=== PATIENT | male | born 1960 | race Caucasian/White ===

== ENCOUNTER 2016-06-16 17:23 | Inpatient (IN) | payer OTHER ==
[~2016-06-16] VITALS: Ht 167.6 cm; Wt 95.0 kg
[~2016-06-16 17:23] MED LIST: ACET500C3 PO; ALPR0.5T6 PO; AMLO-145 PO; ASPI-664 PO; ATOR40TA68 PO; BLOO-1030 MC; CARV12.579 PO; CLOP75TA27 PO; FURO40TA4 PO; GLIM1TAB2 PO; INSU100C SC; IPRA4AER IH; ISOS60TA PO; LOSA50TA2 PO; MECL-77 PO; METF-388 PO; NIT4 SL; NOVO7030 SC; PANT40TA4 PO; PHEN300C2 PO; RANO500T2 PO; SERT25TA83 PO; ZOLP10TA5 PO
[2016-06-16] MEDS ORDERED: ONDANSETRON 4 MG INJ ONE (17:31)
[2016-06-16] MEDS ORDERED: morphine 4 MG/ML VIAL ONE (17:31)
[2016-06-16] MEDS ORDERED: morphine 4 MG/ML VIAL IV STA ×4 (17:33→21:08)
--- NOTE | 2016-06-16 17:37 | ERA ---
ER Documentation Chief Complaint Date/Time DATE: 06/16/16 TIME: 17:36 Chief Complaint Chest pain HPI 55-year-old man with history of multiple medical problems including CAD s/p CABG , ischemic heart disease, hyperlipidemia, hypertension, diabetes presents with intermittent left-sided chest pain 30 minutes. Patient was brought in by EMS from home after he had the acute onset of this sharp deep left-sided chest pain that was nonradiating and associated with shortness of breath, nausea, and diaphoresis. Patient reports the pain as 10- 10 and it is non-tearing, nonpleuritic, non-positional. This occurred while at rest. Patient took 7 nitros without any relief of the pain. He received 1 more round of nitro by EMS and was given aspirin 324 mg in ambulance. Patient denies having such pain in the past and cannot tell this feels like his heart attack pain. Per review of notes from April 2015 patient had a similar syndrome and workup done at that time that included Lexiscan. Patient still smokes but denies any drug use. ROS All systems reviewed and are negative except as per history of present illness. Medications Home Meds Active Scripts Ranolazine* (Ranexa*) 500 Mg Tabsr, 1000 MG PO Q12 for 30 Days, TAB Prov:CARLOS MARTINEZ MD 05/02/15 Phenytoin* Sodium Extended (Dilantin*) 300 Mg Capsule, 300 MG PO HS, #30 CAP Prov:ALIZA CUENCA MD 12/22/14 Ranolazine* (Ranexa*) 500 Mg Tabsr, 500 MG PO Q12, #60 TAB Prov:ALIZA CUENCA MD 12/22/14 Pantoprazole (Protonix) 40 Mg Tabec, 40 MG PO DAILY@06, #30 TAB Prov:ALIZA CUENCA MD 12/22/14 Nitroglycerin* (Nitrostat*) 25 Tab Subl, 1 TAB SL Q5M Y for CHEST PAIN, #90 TAB Prov:ALIZA CUENCA MD 12/22/14 Losartan Potassium* (Cozaar*) 50 Mg Tab, 50 MG PO Q12, #60 TAB Prov:ALIZA CUENCA MD 12/22/14 Albuterol/Ipratropium* (Combivent Respimat*) 20-100 Mcg/Inh - 4 Gm Aer.w.adap, 2 PUFF IH QID, #1 INH Prov:ALIZA CUENCA MD 05/31/14 Reported Medications Cyanocobalamin* (Vitamin B-12*) 1,000 Mcg Tablet.sa, 1000 MCG PO DAILY, TAB 06/16/16 Hydromorphone Hcl* (Hydromorphone Hcl*) 2 Mg Tablet, 2 MG PO Q4H Y for PAIN, TAB 06/16/16 Docusate Sodium* (Docusate Sodium*) 100 Mg Capsule, 100 MG PO TID, #60 CAP 06/16/16 Baclofen* (Baclofen*) 10 Mg Tablet, 10 MG PO BID, TAB 06/16/16 Hydrocodone/Acetaminophen ([place] 10-325 Tablet) 1 Each Tablet, 1 TAB PO Q6 Y for PAIN LEVEL 6-10, TAB 06/16/16 Morphine Sulfate* (Ms Contin*) 15 Mg Tablet.sa, 15 MG PO Q6, TAB.SA 06/16/16 Gabapentin* (Gabapentin*) 300 Mg Capsule, 300 MG PO BID, #60 CAP 06/16/16 Isosorbide Mononitrate* (Isosorbide Mononitrate*) 60 Mg Tab.er.24h, 60 MG PO DAILY, TAB 04/27/15 Atorvastatin* (Atorvastatin*) 40 Mg Tablet, 40 MG PO HS, TAB 12/18/14 Furosemide* (Furosemide*) 40 Mg Tablet, 40 MG PO DAILY, TAB 05/18/14 Alprazolam* (Alprazolam*) 0.5 Mg Tablet, 0.5 MG PO Q8 for ANXIETY, TAB 05/18/14 Clopidogrel Bisulfate (Clopidogrel) 75 Mg Tablet, 75 MG PO DAILY, TAB 04/26/14 Acetaminophen (Mapap) 500 Mg Capsule, 500 MG PO Q6 Y for PAIN, CAP 04/26/14 Meclizine Hcl* (Meclizine Hcl*) 25 Mg Tablet, 25 MG PO TID Y for VERTIGO, TAB 04/26/14 Carvedilol* (Carvedilol*) 12.5 Mg Tablet, 12.5 MG PO BID, TAB 04/26/14 Metformin Hcl* (Metformin Hcl*) 1,000 Mg Tablet, 1000 MG PO BID, TAB 04/26/14 Aspirin* (Aspirin* (EC)) 81 Mg Tablet.dr, 81 MG PO DAILY, TAB 04/26/14 Glimepiride* (Glimepiride*) 1 Mg Tablet, 1 MG PO DAILY, TAB 04/26/14 Zolpidem Tartrate* (Zolpidem Tartrate*) 10 Mg Tablet, 10 MG PO HS Y for INSOMNIA , TAB 04/26/14 Amlodipine Besylate* (Amlodipine Besylate*) 5 Mg Tablet, 5 MG PO DAILY, TAB 04/26/14 Blood Sugar Diagnostic (FREESTYLE LITE TEST STRIPS) 1 Each Strip, 1 EACH MC QID , STRIP 04/26/14 Insulin Lispro (Humalog) 100 U/Ml Cartridge, 0 SC SLIDING SCALE AC, EA 04/26/14 Insulin Isophan/Regular (Humulin 70/30) 100 Units/Ml Susp, 15 UNIT SC PM, EA 04/26/14 Insulin Isophan/Regular (Humulin 70/30) 100 Units/Ml Susp, 15 UNIT SC AM, EA 04/26/14 Discontinued Reported Medications Sertraline Hcl* (Sertraline Hcl*) 25 Mg Tablet, 25 MG PO DAILY, TAB 04/26/14 Allergies Allergies: Coded Allergies: sumatriptan (Verified Allergy, Unknown, 12/21/14) sumatriptan succinate (Verified Allergy, Unknown, 12/21/14) venlafaxine HCl (Verified Allergy, Unknown, 12/21/14) PMhx/Soc History of Surgery: No Anesthesia Reaction: No Hx Neurological Disorder: No Hx Respiratory Disorders: No Hx Cardiac Disorders: Yes Hx Psychiatric Problems: No Hx Miscellaneous Medical Probl: Yes (Anxiety/Depression) Hx Alcohol Use: No Hx Substance Use: No Hx Tobacco Use: Yes Physical Exam Vitals Vital Signs Date Time Temp Pulse Resp B/P Pulse Ox O2 Delivery O2 Flow Rate FiO2 06/16/16 19:00 60 19 116/71 100 Room Air 06/16/16 17:30 Nasal Cannula 2 06/16/16 17:30 98.1 60 16 127/97 100 Physical Exam General: alert, unkempt and in severe distress due to pain, diaphoretic, AOx4. normal pulse oximetry. Head: Atraumatic, normocephalic Eyes: pupils equal and reactive, extraocular eye movements intact, sclera anicteric. Ears: bilateral TM's and external ear canals normal. Nose: normal and patent, no erythema, discharge or polyps. Oropharynx: moist mucous membranes, pharynx normal without lesions. Neck: supple, no significant adenopathy. Heart: normal rate, regular rhythm, normal S1, S2, no murmurs, rubs, clicks or gallops. Peripheral pulses: normal, CP non-reproducible, +midline sternotomy scar c/d/i Lungs: clear to auscultation, no wheezes, rales or rhonchi, symmetric air entry and normal work of breathing. Abdomen: soft, nontender, nondistended, no masses or organomegaly Extremities: no joint tenderness, deformity or swelling. Skin: normal coloration and turgor, no rashes, no suspicious skin lesions noted. Neurologic: Alert, moving all extremities symmetrically x 4, sensation grossly intact, no gross deficits Result Diagram: 06/17/16 0535 06/17/16 0535 Results 24 hrs Laboratory Tests Test 06/16/16 17:50 Activated Partial Thromboplast Time 26.8Sec Anion Gap 18 Basophils # 0.010^3/ul Basophils % 0.5% Blood Morphology Comment Blood Urea Nitrogen 22mg/dl Calcium Level 9.3mg/dl Carbon Dioxide Level 24mmol/L Chloride Level 107mmol/L Creatinine 0.79mg/dl Eosinophils # 0.210^3/ul Eosinophils % 2.4% Glucose Level 227mg/dl Hematocrit 38.6% Hemoglobin 13.1g/dl INR International Normalized Ratio 1.00 Lymphocytes # 1.810^3/ul Lymphocytes % 27.3% Mean Corpuscular Hemoglobin 30.5pg Mean Corpuscular Hemoglobin Concent 33.8g/dl Mean Corpuscular Volume 90.2fl Mean Platelet Volume 9.0fl Monocytes # 0.510^3/ul Monocytes % 7.7% Neutrophils # 4.210^3/ul Neutrophils % 62.1% Nucleated Red Blood Cells # 0.010^3/ul Nucleated Red Blood Cells % 0.0/100WBC Platelet Count 35340^3/UL Potassium Level 3.8mmol/L Prothrombin Time 13.2Sec Prothrombin Time Ratio 1.0 Red Blood Count 4.2810^6/ul Red Cell Distribution Width 14.6% Sodium Level 145mmol/L Troponin I 0.012ng/ml White Blood Count 6.710^3/ul Current Medications Medications (Trade) Dose Ordered Sig/Cecil Route PRN Reason Start Time Stop Time Status Last Admin Dose Admin Morphine Sulfate (morphine) 4 mg ONCE STAT IV 06/16/16 17:33 06/16/16 17:35 DC 06/16/16 17:38 Ondansetron HCl (Zofran Inj) 4 mg ONCE STAT IV 06/16/16 17:38 06/16/16 17:39 DC 06/16/16 17:44 Morphine Sulfate (morphine) 4 mg ONCE STAT IV 06/16/16 17:57 06/16/16 17:58 DC 06/16/16 18:16 Procedures/MDM EKG, MONITORS, & DIAGNOSTIC IMAGING: EKG normal sinus rhythm at [address] flattening in V1 and V2, leads I and aVL, no ST elevation, ST depression, or T-wave inversions. Left axis deviation, normal intervals except for slightly prolonged QTC. Nondiagnostic. CXR: IMPRESSION: Mild cardiomegaly. Mild pulmonary venous hypertension. LAB INTERPRETATION: Labs unremarkable MED[employer] DECISION MAKIN-year-old man with history of multiple medical problems including CAD s/p CABG , ischemic heart disease, hyperlipidemia, hypertension, diabetes presents with intermittent left-sided chest pain 30 minutes of unclear etiology but given his past medical history is high risk for acute coronary syndrome. Patient's EKG showing no signs of a STEMI, chest x-ray showing mild venous congestion. He is now chest pain-free and was given aspirin. Afebrile mildly hypertensive otherwise unremarkable vital signs. Low suspicion for aortic dissection given normal mediastinum and normal symmetric pulses throughout. Doubt PE as he is low risk by [place] score and is not tachycardic, tachypneic, or hypoxic. Patient is high risk by heart score and will benefit from admission for ACS rule out as well as further provocative testing. Departure Diagnosis: Primary Impression: Chest pain Qualified Code: R07.9 - Chest pain, unspecified type Additional Impression: ACS (acute coronary syndrome) Condition: JAYCE Montague MD Jun 16, 2016 17:36 CONSULTATION: JAYCE PRESCOTT MD Jun 16, 2016 17:36
[2016-06-16] MEDS ORDERED: ONDANSETRON 4 MG INJ IV STA (17:38)
--- NOTE | 2016-06-16 17:53 | RADRPT ---
PROCEDURE: XR Chest. CLINICAL INDICATION: Chest pain TECHNIQUE: Chest AP portable. COMPARISON: 04/28/2015 FINDINGS: Sternotomy and CABG. Left-sided dual lead AICD device. The mediastinal structures are unremarkable. There is calcification of the thoracic aorta (consiste nt with atherosclerosis). There is mild cardiomegaly. There is mild pulmonary venous hypertension. No consolidation is identified. The pleural spaces are unremarkable. The osseous structures are unremarkable. IMPRESSION: Mild cardiomegaly. Mild pulmonary venous hypertension. RPTAT: HGDB .Speedy Drummond MD, MD Date Time Electronically viewed and signed by .Speedy Drummond MD, on 06/16/2016 17:53 .B/
[2016-06-16] MEDS ORDERED: GABA300C16 PO (18:02)
[2016-06-16] MEDS ORDERED: MORP15TA92 PO (18:02)
[2016-06-16] MEDS ORDERED: DOCU-159 PO (18:04)
[2016-06-16] MEDS ORDERED: HYDR-902 PO (18:04)
[2016-06-16] MEDS ORDERED: BACL10TA PO (18:04)
[2016-06-16] MEDS ORDERED: CYAN100080 PO (18:05)
[2016-06-16] MEDS ORDERED: HYDR2TAB3 PO (18:05)
[2016-06-16 18:19] LABS: BASOPHILS % 0.5 % (0.0-2.0); EOSINOPHILS # 0.2 10^3/ul (0.0-0.5); EOSINOPHILS % 2.4 % (0.0-7.0); HEMATOCRIT 38.6 % (42.0-52.0); HEMOGLOBIN 13.1 g/dl (14.0-18.0); LYMPHOCYTES # 1.8 10^3/ul (0.8-2.9); LYMPHOCYTES % 27.3 % (15.0-51.0); MEAN CORPUSCULAR HEMOGLOBIN 30.5 pg (29.0-33.0); MEAN CORPUSCULAR HGB CONC 33.8 g/dl (32.0-37.0); MEAN CORPUSCULAR VOLUME 90.2 fl (82.0-101.0); MONOCYTE # 0.5 10^3/ul (0.3-0.9); MONOCYTES % 7.7 % (0.0-11.0); NEUTROPHIL # 4.2 10^3/ul (1.6-7.5); NEUTROPHILS % 62.1 % (39.0-77.0); PLATELET COUNT 168 10^3/UL (140-440); RED BLOOD COUNT 4.28 10^6/ul (4.70-6.10); RED CELL DISTRIBUTION WIDTH 14.6 % (11.5-14.5); UNCORRECTED WBC 6.7 10^3/ul (4.8-10.8); WHITE BLOOD COUNT 6.7 10^3/ul (4.8-10.8)
[2016-06-16 18:22] LABS: CONDITION 1; LH ANALYZER COMMENTS 1
[2016-06-16 18:25] LABS: POTASSIUM 3.8 mmol/L (3.5-5.1)
[2016-06-16 18:26] LABS: PROTIME 13.2 Sec (12.2-14.2)
[2016-06-16 18:27] LABS: CREATININE 0.79 mg/dl (0.61-1.24); PARTIAL THROMBOPLASTIN TIME 26.8 Sec (25.0-35.0)
[2016-06-16 18:28] LABS: CALCIUM 9.3 mg/dl (8.4-10.2)
[2016-06-16 18:40] LABS: TROPONIN-I 0.012 ng/ml (0.00-0.12)
[2016-06-16 21:24] VITALS: PULSE 60
[2016-06-16] MEDS ORDERED: ACETAMINOPHEN 500 MG TAB PO PRN (22:30)
[2016-06-16] MEDS ORDERED: NITROGLYCERIN (SL) 0.4 MG TAB SL PRN (22:30)
[2016-06-16] MEDS ORDERED: MECLIZINE 25 MG TAB PO PRN (22:30)
[2016-06-16] MEDS ORDERED: HYDROmorphONE 2 MG TAB PO PRN (22:30)
[2016-06-16] MEDS ORDERED: GLUCAGON 1 MG INJ IM PRN (23:30)
[2016-06-16] MEDS ORDERED: GLUCOSE GEL 15 GRAM TUBE PO PRN ×2 (23:30)
[2016-06-16] MEDS ORDERED: DEXTROSE 50% 50 ML SYRINGE IV PRN ×2 (23:30)
[2016-06-16] MEDS ORDERED: GLUCOSE GEL 15 GRAM TUBE BUCCAL PRN (23:30)
[2016-06-16] MEDS: morphine (ER) 15 MG TAB PO SCH (23:38)
[2016-06-16] MEDS: ZOLPIDEM 5 MG TAB PO PRN (23:43)
[2016-06-16 23:57] VITALS: Ht 167.6 cm; Wt 95.0 kg
[2016-06-17] VITALS (10 sets, daily range): BP systolic 88–132; BP diastolic 50–64; PULSE 60; RESP 17–20
[2016-06-17] MEDS: ACCUCHECK XX SCH (02:00)
[2016-06-17] MEDS: PANTOPRAZOLE (EC) 40 MG TAB PO SCH (05:46)
[2016-06-17] MEDS: FUROSEMIDE 40 MG TAB PO SCH (05:46)
[2016-06-17] MEDS: morphine (ER) 15 MG TAB PO SCH ×4 (05:49→23:38)
[2016-06-17] MEDS: ALPRAZOLAM 0.25 MG TAB PO SCH ×3 (06:00→21:44)
[2016-06-17] MEDS ORDERED: ALPRAZOLAM 0.5 MG TAB PO SCH (06:00)
[2016-06-17 06:13] LABS: BASOPHILS % 0.1 % (0.0-2.0); EOSINOPHILS # 0.3 10^3/ul (0.0-0.5); EOSINOPHILS % 4.1 % (0.0-7.0); HEMATOCRIT 37.3 % (42.0-52.0); HEMOGLOBIN 12.6 g/dl (14.0-18.0); LYMPHOCYTES # 2.5 10^3/ul (0.8-2.9); MEAN CORPUSCULAR HEMOGLOBIN 30.8 pg (29.0-33.0); MEAN CORPUSCULAR HGB CONC 33.9 g/dl (32.0-37.0); MEAN CORPUSCULAR VOLUME 90.8 fl (82.0-101.0); MEAN PLATELET VOLUME 8.8 fl (7.4-10.4); MONOCYTE # 0.7 10^3/ul (0.3-0.9); MONOCYTES % 9.7 % (0.0-11.0); NEUTROPHIL # 3.7 10^3/ul (1.6-7.5); NEUTROPHILS % 51.1 % (39.0-77.0); PLATELET COUNT 143 10^3/UL (140-440); RED BLOOD COUNT 4.11 10^6/ul (4.70-6.10); RED CELL DISTRIBUTION WIDTH 14.4 % (11.5-14.5); UNCORRECTED WBC 7.2 10^3/ul (4.8-10.8); WHITE BLOOD COUNT 7.2 10^3/ul (4.8-10.8)
[2016-06-17 06:21] LABS: CONDITION 1
[2016-06-17 06:28] LABS: ALBUMIN 3.7 g/dl (3.3-4.9)
[2016-06-17 06:31] LABS: ALBUMIN/GLOBULIN RATIO 1.23; BILIRUBIN,INDIRECT 0.3 mg/dl (0-1.1); BILIRUBIN,TOTAL 0.3 mg/dl (0.2-1.3); CREATININE 0.83 mg/dl (0.61-1.24); TOTAL PROTEIN 6.7 g/dl (6.1-8.1)
[2016-06-17 06:32] LABS: CALCIUM 8.9 mg/dl (8.4-10.2); CHOL/HDL RATIO 6.3 RATIO
[2016-06-17] MEDS: INSULIN ASPART [NOVOLOG] 3 ML PEN SC SCH ×4 (08:00→21:39)
[2016-06-17] MEDS: CYANOCOBALAMIN 500 MCG TAB PO SCH (08:47)
[2016-06-17] MEDS: RANOLAZINE (SR) 500 MG TAB PO SCH ×2 (08:47→21:42)
[2016-06-17] MEDS: metFORMIN 500 MG TAB PO SCH ×2 (08:48→17:37)
[2016-06-17] MEDS: GABAPENTIN 300 MG CAP PO SCH ×2 (08:48→21:43)
[2016-06-17] MEDS: CLOPIDOGREL 75 MG TAB PO SCH (08:48)
[2016-06-17] MEDS: DOCUSATE SODIUM 100 MG CAP PO SCH ×3 (08:49→21:43)
[2016-06-17] MEDS: ISOSORBIDE MONONITRATE(SR)60 MG TAB PO SCH (08:49)
[2016-06-17] MEDS: ASPIRIN (EC) 81 MG TAB PO SCH (08:49)
[2016-06-17] MEDS: LOSARTAN 50 MG TAB PO SCH ×2 (08:50→21:44)
[2016-06-17] MEDS: ENOXAPARIN 40 MG/0.4 ML SYG SC SCH (08:52)
[2016-06-17] MEDS: HUMULIN 70/30 3ML VIAL SC SCH (08:52)
[2016-06-17] MEDS ORDERED: RANOLAZINE (SR) 500 MG TAB PO SCH (09:00)
[2016-06-17] MEDS ORDERED: HUMULIN 70/30 3ML VIAL SC SCH (09:00)
[2016-06-17] MEDS ORDERED: AMLODIPINE 5 MG TAB PO SCH (09:00)
[2016-06-17] MEDS: IBUPROFEN 800 MG TAB PO SCH ×2 (11:56→21:00)
[2016-06-17] MEDS: morphine 2 MG INJ IV PRN ×3 (13:27→21:41)
[2016-06-17] MEDS ORDERED: ONDANSETRON 4 MG INJ IV PRN (15:00)
--- NOTE | 2016-06-17 19:21 | QN ---
Documentation Comment [id number] CARLOS MARTINEZ MD Jun 17, 2016 19:21
[2016-06-17] MEDS ORDERED: PHENYTOIN 100 MG CAP PO SCH (21:00)
[2016-06-17] MEDS ORDERED: ATORVASTATIN 40 MG TAB PO SCH (21:00)
--- NOTE | 2016-06-17 22:56 | CONS ---
DATE OF ADMISSION: 06/16/2016 DATE OF CONSULTATION: 06/17/2016 REASON FOR CONSULTATION: Chest pain. REQUESTING PHYSICIAN: Shashank Martinez MD HISTORY OF PRESENT ILLNESS: Mr. Louis is a 56-year-old male with a history of coronary artery di sease, status post prior PTCA and stent placement to the obtuse marginal in November 2012, coronary sissy ry bypass graft surgery with a patent KNOTT to LAD and other bypass grafts are found to be occluded, cardiomyopathy with severely depressed left ventricular ejection fraction, last known to be approxim ately 25% by echo 04/29/2015, dyslipidemia, hypertension who presents with complaints of substernal chest pain, left side of his chest, occurring both at rest and with exertion, described as a stabbin g sensation. Upon arrival in the emergency department, temperature 98.1, blood pressure 127/97, pul se 60, respirations 16, saturating 100%. The patient's labs, white count 6.7, hemoglobin 13.1, plat elet count 168. Sodium 145, potassium 3.8, creatinine 0.79, BUN 22. Troponin negative. INR of 1.0 . The patient underwent a chest x-ray revealing mild cardiomegaly, mild pulmonary venous hypertensi on. The patient's electrocardiogram revealed sinus rhythm, rate of 79 with inferior and anterolater al Q's. The patient has been admitted to the floor and, since admit to the floor, has had a second troponin return negative for 2 negative troponins. The patient has been placed on aspirin, Plavix, carvedilol, Imdur, Losartan, Ranexa. The patient continues to have chest pain at this time. PAST MEDICAL HISTORY: As above in HPI. MEDICATIONS CURRENTLY IN HOSPITAL: 1. Lipitor 40 mg at bedtime. 2. Dilantin 300 mg at bedtime. 3. Zofran p.r.n. 4. Ibuprofen 800 mg p.o. b.i.d. 5. Morphine. 6. Norvasc 5 mg daily. 7. Aspirin 81 mg daily. 8. Carvedilol 12.5 mg p.o. b.i.d. 9. Plavix 75 daily. 10. Vitamin B12 at 1000 mg daily. 11. Colace 100 mg t.i.d. 12. Neurontin 300 mg b.i.d. 13. Imdur ____ mg daily. 14. Cozaar 50 mg q.12h. 15. Ranexa 1000 mg q.12h. 16. Lovenox ____ subcutaneous daily. 17. ____ p.r.n. 18. Lasix 40 mg daily. 19. Protonix 40 mg daily. 20. Xanax 0.5 q.8h. 21. Insulin sliding scale. 22. Dilaudid p.r.n. 23. Nitroglycerin p.r.n. 24. Ambien p.r.n. ALLERGIES: SUMATRIPTAN, VENLAFAXINE. SOCIAL HISTORY: No tobacco, ETOH, or illicit drug use. FAMILY HISTORY: Negative for sudden cardiac or early CAD. REVIEW OF SYSTEMS: As above in HPI. CONSTITUTIONAL: No fevers, chills. PULMONARY: No current shortness of breath. CARDIOVASCULAR: Positive chest pain. GASTROINTESTINAL: No vomiting. GENITOURINARY: No hematuria. MUSCULOSKELETAL: Degenerative joint disease. PSYCHIATRIC: The patient denies depression. NEUROLOGIC: No documented history of CVA. ENDOCRINE: Positive history of diabetes mellitus. PSYCHIATRIC: Positive psychiatric history. PHYSICAL EXAMINATION: VITAL SIGNS: Temperature most recently 98.5, blood pressure low at 88/50, pulse 60s to 70s, saturat ing 96%. GENERAL: The patient is alert, awake, in no acute distress, complaining of intermittent chest pain. NECK: JVP approximately 8 to 9 cm water. CHEST: Fair movement throughout with mildly decreased breath sounds at bases bilaterally. HEART: Regular rate and rhythm. Normal S1, S2. A I/ systolic murmur, nondisplaced PMI. ABDOMEN: Positive bowel sounds, soft. EXTREMITIES: No pitting edema, 1+ pulses bilaterally, posterior tibial. LABORATORIES: As above in HPI with most recently from today, sodium 146, potassium 4.0, creatinine 0.8, BUN of 22. AST 15, ALT 19. LDL of 135, HDL 32, triglycerides 177. IMAGING STUDIES: As above in HPI. No further imaging studies for my review at this time. ECG: As above in HPI. No further electrocardiograms for my review at this time. IMPRESSION: 1. Chest pain, assess for acute coronary syndrome. 2. Abnormal electrocardiogram with inferior and anterolateral Q's, assess for acute coronary syndro me. 3. Cardiomyopathy with severely depressed left ventricular ejection fraction. Last known approxima tely 25% by echo, 2014. 4. History of percutaneous transluminal coronary angioplasty and stent placement, November 2014, to obt use marginal. 5. History of coronary artery bypass grafting with the patient having a patent left internal mammar y artery to left anterior descending by most recent angiography, 2014, but other vessels occluded. 6. Anxiety. 7. Hypertension with currently borderline hypotension. 8. Dyslipidemia. 9. Diabetes mellitus. RECOMMENDATIONS: 1. At this time, would maintain patient on telemetry monitoring to follow rhythm and rate control c losely. 2. Would continue the patient's current antianginal medications with carvedilol, Imdur, Ranexa, and Norvasc. Will decrease the patient's dose of Norvasc to offset drop in blood pressure. 3. Will complete the patient's rule out for myocardial infarction to ensure the patient's chest jyoti n is not due to any acute coronary syndrome, such as an acute myocardial infarction. 4. Additionally, continue the patient's Losartan afterload reduction in the setting of severe cardi omyopathy and daily Lasix, following volume status closely. 5. If the patient does rule out for myocardial infarction, at that time, I believe the patient will benefit from further inpatient risk stratification with a stress test to assess for any significant ongoing ischemia, as it has been over a year since the patient's most recent assessment. Thank you for allowing me to take part in the care of this patient. I will continue to follow very closely with you with further recommendations to be made as the patient progresses through his [facility] clinical course. Dictated By: NICHOL JACKSON/MOISES Conf#: [id number] DID#: [id number] CC: SHASHANK MARTINEZ MD;*EndCC*
[2016-06-17] MEDS: ZOLPIDEM 5 MG TAB PO PRN (23:37)
[2016-06-18] VITALS (10 sets, daily range): BP systolic 105–141; BP diastolic 56–73; PULSE 60–75; RESP 16–18
[2016-06-18] MEDS: ACCUCHECK XX SCH (01:59)
[2016-06-18] MEDS: morphine 2 MG INJ IV PRN ×4 (02:01→15:26)
[2016-06-18] MEDS: morphine (ER) 15 MG TAB PO SCH ×3 (06:00→18:00)
[2016-06-18] MEDS: ALPRAZOLAM 0.25 MG TAB PO SCH ×2 (06:00→13:10)
[2016-06-18] MEDS: PANTOPRAZOLE (EC) 40 MG TAB PO SCH (06:26)
[2016-06-18] MEDS: FUROSEMIDE 40 MG TAB PO SCH (06:26)
--- NOTE | 2016-06-18 06:38 | HP ---
DATE OF ADMISSION: 06/16/2016 HISTORY OF PRESENT ILLNESS: Mr. Daniel Louis is a 56-year-old male who has a history of CAD, AI CD device placement. The patient had seen Dr. Olsen in the past, presented with chest pain, but t he patient's pain seems to be coming from the chest wall tenderness as well as the patient previousl y was discharged home with the diagnosis of ischemic heart disease, CHF, ejection fraction 30%, hist ory of Lexiscan shows nonreversible disease, dyslipidemia, hypertension, diabetes mellitus, CAD, his tory of coronary artery bypass graft, and the coronary angiogram and intervention in the past, anxie ty, chronic pain. ALLERGIES: 1. SUMATRIPTAN. 2. EFFEXOR. SOCIAL HISTORY: He denies at this point. MEDICATION HISTORY: The patient is on: 1. Combivent. 2. Xanax. 3. Amlodipine. 4. Aspirin. 5. Lipitor. 6. Baclofen. 7. Coreg. 8. Plavix. 9. B12. 10. Docusate sodium. 11. Lasix. 12. Gabapentin 13. Amaryl. 14. Hydrocodone. 15. Insulin. 16. Losartan. 17. Meclizine. 18. Metformin. 19. Morphine. 20. Nitroglycerin. 21. Protonix. 22. Dilantin 23. Ranexa. 24. Ambien. REVIEW OF SYSTEMS: HEENT: Unremarkable. RESPIRATORY: Unremarkable. CARDIOVASCULAR: Chest wall pain and chest pain. ABDOMEN: Unremarkable. EXTREMITIES: Unremarkable. CENTRAL NERVOUS SYSTEM: Unremarkable. PHYSICAL EXAMINATION: GENERAL: The patient is anxious, awake, alert, not in any acute respiratory distress. VITAL SIGNS: Pulse of 60, blood pressure 110/50. HEAD: Atraumatic, normocephalic. Pupils equal, reactive to light. NECK: Supple. No JVD. LUNGS: Clear. CARDIOVASCULAR: S1, S2 normal. Systolic murmur noted. CABG scar noted. AICD device in the left c hest noted. The patient has some tenderness on the left side chest wall close to the AICD device. ABDOMEN: Soft, nontender. Bowel sounds present. No palpable mass. EXTREMITIES: No cyanosis, clubbing, or edema. CENTRAL NERVOUS SYSTEM: The patient is awake, alert, no focal deficit. LABORATORY DATA: Hematocrit 37.3. Sodium 146, potassium 4. Triglyceride 177, cholesterol 202. IMPRESSION: 1. The patient has chest pain. 2. Rule out ischemic heart disease. 3. Rule out chest wall pain. 4. Hypertension. 5. Diabetes mellitus. 6. Coronary artery disease. 7. Coronary artery bypass graft. 8. Dyslipidemia. 9. History of Lexiscan done. 10. Anemia. 11. Hyponatremia. 12. Atherosclerotic heart disease. 13. History of coronary artery bypass graft. 14. History of anxiety. 15. History of dyslipidemia. PLAN: To continue current treatment. Dr. Olsen has been called personally to see this patient in consultation. The patient will be on pain medications, and other recommendations per Dr. Olsen. Dictated By: CARLOS WATKINS/MOISES Conf#: [id number] DID#: [id number]
[2016-06-18 07:03] LABS: POTASSIUM 4.3 mmol/L (3.5-5.1)
[2016-06-18 07:06] LABS: CREATININE 0.84 mg/dl (0.61-1.24)
[2016-06-18 07:07] LABS: CALCIUM 9.3 mg/dl (8.4-10.2)
[2016-06-18 07:20] LABS: CHOL/HDL RATIO 7.1 RATIO
[2016-06-18] MEDS: metFORMIN 500 MG TAB PO SCH ×2 (08:00→18:05)
[2016-06-18] MEDS: ASPIRIN (EC) 81 MG TAB PO SCH (08:54)
[2016-06-18] MEDS: IBUPROFEN 800 MG TAB PO SCH (08:54)
[2016-06-18] MEDS: DOCUSATE SODIUM 100 MG CAP PO SCH ×2 (08:54→13:10)
[2016-06-18] MEDS: CLOPIDOGREL 75 MG TAB PO SCH (08:54)
[2016-06-18] MEDS: ISOSORBIDE MONONITRATE(SR)60 MG TAB PO SCH (08:55)
[2016-06-18] MEDS: LOSARTAN 50 MG TAB PO SCH (08:55)
[2016-06-18] MEDS: CYANOCOBALAMIN 500 MCG TAB PO SCH (08:55)
[2016-06-18] MEDS: GABAPENTIN 300 MG CAP PO SCH (08:55)
[2016-06-18] MEDS: RANOLAZINE (SR) 500 MG TAB PO SCH (08:55)
[2016-06-18] MEDS: INSULIN ASPART [NOVOLOG] 3 ML PEN SC SCH ×3 (08:58→18:05)
[2016-06-18] MEDS: ENOXAPARIN 40 MG/0.4 ML SYG SC SCH (08:59)
[2016-06-18] MEDS: HUMULIN 70/30 3ML VIAL SC SCH (08:59)
[2016-06-18] MEDS ORDERED: AMLODIPINE 2.5 MG TAB PO SCH (09:00)
[2016-06-18] MEDS ORDERED: REGADENOSON 0.4 MG/5 ML SYG ONE (10:55)
--- NOTE | 2016-06-18 11:50 | RADRPT ---
Echocardiogram Report Patient Name: FANNY RICARDO Gender: Male Date: 1960 Study Date: 18-Jun-2016 Steam Fitter: Batsheva Grissom [facility] Location: 5559 Ref. Physician: NICHOL ACOSTA Quality: Good Procedures: Transthoracic echocardiogram with complete 2D, M-Mode, and doppler examination. Indications: Cardiomyopathy. Congestive Heart Failure. 2D/M Mode Doppler Measurement Value Normal Ranges Measurement Value Normal Ranges LVIDd 2D 6.4 3.5 - 5.6 cm AV Peak Raimundo 1.5 m/sec LVIDs 2D 4.9 2.1 - 4.1 cm AV Peak PG 9.0 mmHg FS 2D 22.8 % LVOT Peak Raimundo 1.0 m/sec LVPWd 2D 1.0 0.6 - 1.1 cm LVOT Peak PG 4.0 mmHg IVSd 2D 1.1 0.6 - 1.1 cm MV E Peak Raimundo 1.1 m/sec IVS/LVPW 2D 1.1 MV Decel Time 183 msec AoR Diam 2D 2.5 2.0 - 3.7 cm TR Peak Raimundo 2.9 m/sec LA/Ao 2D 2 0 - 1 TR Peak PG 34.0 mmHg EDV 2D 258.0 cm3 RVSP 42.0 mmHg ESV 2D 119.0 cm3 LA Dimen 2D 4.3 2.3 - 4.0 cm Findings Left Ventricle: Mild concentric left ventricular hypertrophy. Moderate enlargement of left ventricle cavity. Moderate global left ventricular systolic dysfunction. Ejection fraction is visually estimated at 35 %. Tissue Doppler/Mitral Doppler indices are consistent with restrictive physiology with markedly elevated left atrial pressure (Stage IIIIV diastolic dysfunction). Right Ventricle: Normal right ventricular size. Normal right ventricular systolic function. Pacemaker right heart. Left Atrium: There is mild enlargement of left atrium. Right Atrium: The right atrium is normal in size. Mitral Valve: Mitral valve leaflets appear mildly thickened. Mild mitral annular calcification. Mild mitral valve regurgitation. Aortic Valve: No significant aortic stenosis or insufficiency. Aortic cusps appear mildly calcified. Tricuspid Valve: Normal appearance of the tricuspid valve. Estimated peak PA systolic pressure 42 mmHg. There is mild tricuspid regurgitation. Pulmonic Valve: Normal pulmonic valve appearance. There is mild pulmonic regurgitation. Pericardium: Normal pericardium with no significant pericardial effusion. Aorta: Normal aortic root. IVC: Dilated IVC with respiratory collapse consistent with elevated right atrial pressure. Conclusions 1.Mild concentric left ventricular hypertrophy. Moderate enlargement of left ventricle cavity. Moderate global left ventricular systolic dysfunction. Ejection fraction is visually estimated at 35 %. Tissue Doppler/Mitral Doppler indices are consistent with restrictive physiology with markedly elevated left atrial pressure (Stage III-IV diastolic dysfunction). 2.Mitral valve leaflets appear mildly thickened. Mild mitral annular calcification. Mild mitral valve regurgitation. 3.No significant aortic stenosis or insufficiency. Aortic cusps appear mildly calcified. 4.Normal appearance of the tricuspid valve. Estimated peak PA systolic pressure 42 mmHg. There is mild tricuspid regurgitation. Electronically Signed By: Kofi Ma 18-Jun-2016 11:49:44 -0800 Patient Name: FANNY RICARDO Study Date: [id number]
--- NOTE | 2016-06-18 12:10 | CONS ---
Date/Time of Note Date/Time of Note DATE: 06/18/16 TIME: 12:09 Assessment/Plan Assessment/Plan Additional Assessment/Plan 1. Chest pain, assess for acute coronary syndrome - R/O IL - stress test today 2. Abnormal electrocardiogram with inferior and anterolateral Q's, assess for acute coronary syndrome- no CP noted now 3. Cardiomyopathy with severely depressed left ventricular ejection fraction. Last known approximately 25% by echo, 2014. ECHO EF 35% now. 4. History of percutaneous transluminal coronary angioplasty and stent placement, November 2014, to obtuse marginal - Stress test to follow 5. History of coronary artery bypass grafting with the patient having a patent left internal mammary artery to left anterior descending by most recent angiography, 2014, but other vessels occluded. 6. Anxiety. 7. Hypertension with currently borderline hypotension. 8. Dyslipidemia. 9. Diabetes mellitus- on meds, keep euglycemic Consultation Date/Type/Reason Admit Date/Time Jun 16, 2016 at 20:10 Initial Consult Date 24 HR Interval Summary Free Text/Dictation NO acute change - Stress test today ROS: No fever, no chills, no nausea, no vomiting, no diarrhea/constipation No recent weight changes No chest pain, no PND, no orthopnea No dizziness, blurred vision No thirst, no heat or cold intolerance Exam/Review of Systems Vital Signs Vitals Vital Signs Date Time Temp Pulse Resp B/P Pulse Ox O2 Delivery O2 Flow Rate FiO2 06/18/16 11:37 98.3 76 17 121/61 99 06/18/16 08:00 Nasal Cannula 2.0 Intake and Output 06/17/16 06/17/16 06/18/16 15:00 23:00 07:00 Intake Total 600 ml 940 ml Balance 600 ml 940 ml Exam General: WN/WD/NAD, AOx 3 HEENT: Unicetric/atraumatic/EOMI (follow commands) NECK: JVD elevated, no thyromegaly Lymph: no lymphadenopathy HEART: regular with no S3, II/ systolic murmur at apex LUNGS: Coarse sounds ABD: soft, NT, ND, +BS : Intact Neuro: non focal SKIN: chronic changes EXT: trace edema Results Result Diagram: 06/17/16 0535 06/18/16 0610 Results 24 hrs Laboratory Tests Test 06/17/16 12:59 06/17/16 17:05 06/17/16 21:34 06/18/16 01:59 Troponin I 0.010 Bedside Glucose 106 204 113 Test 06/18/16 06:10 06/18/16 06:12 06/18/16 08:04 Anion Gap 18 H Blood Urea Nitrogen 23 H Calcium Level 9.3 Carbon Dioxide Level 24 Chloride Level 101 Creatinine 0.84 Glucose Level 134 # Potassium Level 4.3 Sodium Level 139 Cholesterol Level 242 H Cholesterol/HDL Ratio 7.1 HDL Cholesterol 34 LDL Cholesterol, Calculated 151 Triglycerides Level 283 H Bedside Glucose 163 Medications Medications Current Medications Acetaminophen (Tylenol Tab) 500 mg Q6 PRN PO PAIN; Start 06/16/16 at 22:30 Aspirin (Halfprin) 81 mg DAILY PO Last administered on 06/18/16 08:54; Admin Dose 81 MG; Start 06/17/16 at 09:00 Atorvastatin Calcium (Lipitor) 40 mg HS PO Last administered on 06/17/16 21:44 ; Admin Dose 40 MG; Start 06/17/16 at 21:00 Carvedilol (Coreg) 12.5 mg BID PO Last administered on 06/18/16 08:55; Admin Dose 12.5 MG; Start 06/17/16 at 09:00 Clopidogrel Bisulfate (plaVIX) 75 mg DAILY PO Last administered on 06/18/16 08 :54; Admin Dose 75 MG; Start 06/17/16 at 09:00 Cyanocobalamin (Vitamin B12) 1,000 mcg DAILY PO Last administered on 06/18/16 08:55; Admin Dose 1,000 MCG; Start 06/17/16 at 09:00 Docusate Sodium (Colace) 100 mg TID PO Last administered on 06/18/16 08:54; Admin Dose 100 MG; Start 06/17/16 at 09:00 Furosemide (Lasix) 40 mg DAILY@06 PO Last administered on 06/18/16 06:26; Admin Dose 40 MG; Start 06/17/16 at 06:00 Gabapentin (Neurontin) 300 mg BID PO Last administered on 06/18/16 08:55; Admin Dose 300 MG; Start 06/17/16 at 09:00 Hydromorphone HCl (Dilaudid) 2 mg Q4H PRN PO PAIN; Start 06/16/16 at 22:30 Insulin Human Isoph/Insulin Regular (Humulin 70/30) 15 units QAM SC Last administered on 06/18/16 08:59; Admin Dose 15 UNITS; Start 06/17/16 at 09:00 Isosorbide Mononitrate (Imdur) 60 mg DAILY PO Last administered on 06/18/16 08 :55; Admin Dose 60 MG; Start 06/17/16 at 09:00 Losartan Potassium (Cozaar) 50 mg Q12 PO Last administered on 06/18/16 08:55; Admin Dose 50 MG; Start 06/17/16 at 09:00 Meclizine HCl (Antivert) 25 mg TID PRN PO VERTIGO; Start 06/16/16 at 22:30 Morphine Sulfate (Ms Contin (Er)) 15 mg Q6 PO Last administered on 06/17/16 23 :38; Admin Dose 15 MG; Start 06/17/16 at 00:00 Nitroglycerin (Nitroglycerin (Sl Tab) 0.4 Mg) 1 tab Q5M PRN SL CHEST PAIN; Start 06/16/16 at 22:30 Pantoprazole (Protonix Tab) 40 mg DAILY@06 PO Last administered on 06/18/16 06 :26; Admin Dose 40 MG; Start 06/17/16 at 06:00 Phenytoin (Dilantin) 300 mg HS PO Last administered on 06/17/16 21:42; Admin Dose 300 MG; Start 06/17/16 at 21:00 Ranolazine (Ranexa) 1,000 mg Q12 PO Last administered on 06/18/16 08:55; Admin Dose 1,000 MG; Start 06/17/16 at 09:00 Zolpidem Tartrate (Ambien) 10 mg HS PRN PO INSOMNIA Last administered on 23:37; Admin Dose 10 MG; Start 06/16/16 at 22:30 Alprazolam (Xanax) 0.5 mg Q8 PO Last administered on 06/17/16 21:44; Admin Dose 0.5 MG; Start 06/17/16 at 06:00 Miscellaneous Information 1 ea NOTE XX ; Start 06/16/16 at 23:30 Glucose (Glutose) 15 gm Q15M PRN PO DECREASED GLUCOSE; Start 06/16/16 at 23:30 Glucose (Glutose) 22.5 gm Q15M PRN PO DECREASED GLUCOSE; Start 06/16/16 at 23: 30 Dextrose (D50w Syringe) 25 ml Q15M PRN IV DECREASED GLUCOSE; Start 06/16/16 at 23:30 Dextrose (D50w Syringe) 50 ml Q15M PRN IV DECREASED GLUCOSE; Start 06/16/16 at 23:30 Glucagon (Glucagen) 1 mg Q15M PRN IM DECREASED GLUCOSE; Start 06/16/16 at 23:30 Glucose (Glutose) 15 gm Q15M PRN BUCCAL DECREASED GLUCOSE; Start 06/16/16 at 23 :30 Enoxaparin Sodium (Lovenox) 40 mg DAILY SC Last administered on 06/18/16 08:59 ; Admin Dose 40 MG; Start 06/17/16 at 09:00 Diagnostic Test (Pha) (Accucheck) 1 ea 02 XX Last administered on 06/18/16 01: 59; Admin Dose 1 EA; Start 06/17/16 at 02:00 Morphine Sulfate (morphine) 2 mg Q4H PRN IV BREAKTHROUGH PAIN Last administered on 06/18/16 10:24; Admin Dose 2 MG; Start 06/17/16 at 10:30 Ibuprofen (Motrin) 800 mg BID PO Last administered on 06/18/16 08:54; Admin Dose 800 MG; Start 06/17/16 at 12:00; Stop 06/20/16 at 11:59 Ondansetron HCl (Zofran Inj) 4 mg Q4H PRN IV NAUSEA AND/OR VOMITING Last administered on 06/17/16 14:40; Admin Dose 4 MG; Start 06/17/16 at 15:00 Amlodipine Besylate (Norvasc) 2.5 mg DAILY PO Last administered on 06/18/16 08 :56; Admin Dose 2.5 MG; Start 06/18/16 at 09:00 MARTINEZ ODOM MD Jun 18, 2016 12:10
--- NOTE | 2016-06-18 13:01 | ECORPT ---
DATE OF SERVICE: 06/18/2016 REFERRING PHYSICIAN: Dr Cast REASON FOR EVALUATION: Chest pain. DESCRIPTION OF TEST: The patient was brought into the heart station in fasting condition. Initia l heart rate was 60, blood pressure was ____. The patient received Lexiscan injection. He tolerate d the injection well. The imaging portion of the test will be dictated separately. Dictated By: MARTINEZ ODOM MD ML/MOISES Conf#: [id number] DID#: [id number]
--- NOTE | 2016-06-18 13:40 | RADRPT ---
PROCEDURE: Lexiscan myocardial perfusion study CLINICAL INDICATION: 56 -year-old patient complaining of chest pain. TECHNIQUE: Lexiscan 0.4 mg intravenously separate acquisition gated myocardial perfusion SPECT usi ng Tc 99m Myoview 31.0 mCi intravenously at stress and Tc-99m Myoview, 10.4 mCi intravenously at res t was performed using the rest/stress sequence. Poststress Myoview SPECT images were obtained in th e supine position. COMPARISON: May 02, 2015. FINDINGS: Perfusion images reveal an unchanged [id number] size moderate in degree nonreversible perfusi on defect involving the apical, distal anterior, distal to mid anteroseptal, and inferior nash. Lexiscan post stress gated SPECT images demonstrate unchanged moderate hypokinesis of the left ventr icle. IMPRESSION: 1. The type and distribution of the scintigraphic abnormalities are most consistent with an unchange d [id number] size nonreversible perfusion defect in the apex, distal anterior, distal to mid anteroseptal and inferior nash. 2. Moderate hypokinesis of the left ventricle unchanged since the prior examination . 3. The left ventricle ejection fraction at stress is 30%, unchanged since the previous study. A call report was made to Dr. Ma at 01:37 p.m. on June 18, 2016. RPTAT: HH .Lynn Preston MD, Date Time Electronically viewed and signed by .Lynn Preston MD, on 06/18/2016 13:39 .L/
--- NOTE | 2016-06-18 14:24 | RADRPT ---
Vent Rate: 60 bpm RR Interval: 0 msec OK Interval: 140 msec QRS Duration: 86 msec QT Interval: 462 msec QTC Interval: 462 msec P-R-T [place]: 33 - -60 - 127 degrees Electronic atrial pacemaker Left axis deviation Anteroseptal infarct , age undetermined Abnormal ECG Electronically Signed By: Joe Johnston [id number]
--- NOTE | 2016-06-18 15:55 | PDOCDIS ---
Discharge Instructions CONDITION Patient Condition: Stable HOME CARE INSTRUCTIONS: Special Diet: Cardiac ACTIVITY: Activity Restrictions: Slowly Increase Activity FOLLOW UP/APPOINTMENTS Appointments f/u own pcp [address] artis 1 wk CARLOS MARTINEZ MD Jun 18, 2016 15:55
[2016-06-18] MEDS ORDERED: OMEG-135 PO (15:58)
[2016-06-18] MEDS ORDERED: IBUP800T25 PO (15:58)
--- NOTE | 2016-06-18 16:01 | PN ---
Date/Time of Note Date/Time of Note DATE: 06/18/16 TIME: 16:00 Assessment/Plan VTE Prophylaxis VTE Prophylaxis Intervention: other Lines/Catheters IV [facility]from [facility] Urinary Cath still in place: No Assessment/Plan Chief Complaint/Hosp Course IMPRESSION: 1. The patient has chest pain. 2. Rule out ischemic heart disease. 3. Rule out chest wall pain. 4. Hypertension. 5. Diabetes mellitus. 6. Coronary artery disease. 7. Coronary artery bypass graft. 8. Dyslipidemia. 9. History of Lexiscan done. 10. Anemia. 11. Hyponatremia. 12. Atherosclerotic heart disease. 13. History of coronary artery bypass graft. 14. History of anxiety. 15. History of dyslipidemia. plan fish oil tiffanie neg home Problems: Subjective 24 Hr Interval Summary Cardiovascular: other (chest wall pain) Gastrointestinal: no complaints Genitourinary: no complaints Exam/Review of Systems Vital Signs Vitals Vital Signs Date Time Temp Pulse Resp B/P Pulse Ox O2 Delivery O2 Flow Rate FiO2 06/18/16 15:32 97.9 79 17 136/72 96 06/18/16 12:50 Nasal Cannula 2.0 Intake and Output 06/17/16 06/17/16 06/18/16 15:00 23:00 07:00 Intake Total 600 ml 940 ml Balance 600 ml 940 ml Exam Respiratory: clear to auscultation Cardiovascular: regular rate and rhythm Gastrointestinal: soft Musculoskeletal: nl extremities to inspection Results Result Diagram: 06/17/16 0535 06/18/16 0610 Results 24 hrs Laboratory Tests Test 06/17/16 17:05 06/17/16 21:34 06/18/16 01:59 06/18/16 06:10 Bedside Glucose 106 204 113 Anion Gap 18 H Blood Urea Nitrogen 23 H Calcium Level 9.3 Carbon Dioxide Level 24 Chloride Level 101 Creatinine 0.84 Glucose Level 134 # Potassium Level 4.3 Sodium Level 139 Test 06/18/16 06:12 06/18/16 08:04 06/18/16 13:07 Cholesterol Level 242 H Cholesterol/HDL Ratio 7.1 HDL Cholesterol 34 LDL Cholesterol, Calculated 151 Triglycerides Level 283 H Bedside Glucose 163 100 Medications Medications Current Medications Acetaminophen (Tylenol Tab) 500 mg Q6 PRN PO PAIN; Start 06/16/16 at 22:30 Aspirin (Halfprin) 81 mg DAILY PO Last administered on 06/18/16 08:54; Admin Dose 81 MG; Start 06/17/16 at 09:00 Atorvastatin Calcium (Lipitor) 40 mg HS PO Last administered on 06/17/16 21:44 ; Admin Dose 40 MG; Start 06/17/16 at 21:00 Carvedilol (Coreg) 12.5 mg BID PO Last administered on 06/18/16 08:55; Admin Dose 12.5 MG; Start 06/17/16 at 09:00 Clopidogrel Bisulfate (plaVIX) 75 mg DAILY PO Last administered on 06/18/16 08 :54; Admin Dose 75 MG; Start 06/17/16 at 09:00 Cyanocobalamin (Vitamin B12) 1,000 mcg DAILY PO Last administered on 06/18/16 08:55; Admin Dose 1,000 MCG; Start 06/17/16 at 09:00 Docusate Sodium (Colace) 100 mg TID PO Last administered on 06/18/16 13:10; Admin Dose 100 MG; Start 06/17/16 at 09:00 Furosemide (Lasix) 40 mg DAILY@06 PO Last administered on 06/18/16 06:26; Admin Dose 40 MG; Start 06/17/16 at 06:00 Gabapentin (Neurontin) 300 mg BID PO Last administered on 06/18/16 08:55; Admin Dose 300 MG; Start 06/17/16 at 09:00 Hydromorphone HCl (Dilaudid) 2 mg Q4H PRN PO PAIN; Start 06/16/16 at 22:30 Insulin Human Isoph/Insulin Regular (Humulin 70/30) 15 units QAM SC Last administered on 06/18/16 08:59; Admin Dose 15 UNITS; Start 06/17/16 at 09:00 Isosorbide Mononitrate (Imdur) 60 mg DAILY PO Last administered on 06/18/16 08 :55; Admin Dose 60 MG; Start 06/17/16 at 09:00 Losartan Potassium (Cozaar) 50 mg Q12 PO Last administered on 06/18/16 08:55; Admin Dose 50 MG; Start 06/17/16 at 09:00 Meclizine HCl (Antivert) 25 mg TID PRN PO VERTIGO; Start 06/16/16 at 22:30 Morphine Sulfate (Ms Contin (Er)) 15 mg Q6 PO Last administered on 06/18/16 13 :10; Admin Dose 15 MG; Start 06/17/16 at 00:00 Nitroglycerin (Nitroglycerin (Sl Tab) 0.4 Mg) 1 tab Q5M PRN SL CHEST PAIN; Start 06/16/16 at 22:30 Pantoprazole (Protonix Tab) 40 mg DAILY@06 PO Last administered on 06/18/16 06 :26; Admin Dose 40 MG; Start 06/17/16 at 06:00 Phenytoin (Dilantin) 300 mg HS PO Last administered on 06/17/16 21:42; Admin Dose 300 MG; Start 06/17/16 at 21:00 Ranolazine (Ranexa) 1,000 mg Q12 PO Last administered on 06/18/16 08:55; Admin Dose 1,000 MG; Start 06/17/16 at 09:00 Zolpidem Tartrate (Ambien) 10 mg HS PRN PO INSOMNIA Last administered on 23:37; Admin Dose 10 MG; Start 06/16/16 at 22:30 Alprazolam (Xanax) 0.5 mg Q8 PO Last administered on 06/18/16 13:10; Admin Dose 0.5 MG; Start 06/17/16 at 06:00 Miscellaneous Information 1 ea NOTE XX ; Start 06/16/16 at 23:30 Glucose (Glutose) 15 gm Q15M PRN PO DECREASED GLUCOSE; Start 06/16/16 at 23:30 Glucose (Glutose) 22.5 gm Q15M PRN PO DECREASED GLUCOSE; Start 06/16/16 at 23: 30 Dextrose (D50w Syringe) 25 ml Q15M PRN IV DECREASED GLUCOSE; Start 06/16/16 at 23:30 Dextrose (D50w Syringe) 50 ml Q15M PRN IV DECREASED GLUCOSE; Start 06/16/16 at 23:30 Glucagon (Glucagen) 1 mg Q15M PRN IM DECREASED GLUCOSE; Start 06/16/16 at 23:30 Glucose (Glutose) 15 gm Q15M PRN BUCCAL DECREASED GLUCOSE; Start 06/16/16 at 23 :30 Enoxaparin Sodium (Lovenox) 40 mg DAILY SC Last administered on 06/18/16 08:59 ; Admin Dose 40 MG; Start 06/17/16 at 09:00 Diagnostic Test (Pha) (Accucheck) 1 ea 02 XX Last administered on 06/18/16 01: 59; Admin Dose 1 EA; Start 06/17/16 at 02:00 Morphine Sulfate (morphine) 2 mg Q4H PRN IV BREAKTHROUGH PAIN Last administered on 06/18/16 15:26; Admin Dose 2 MG; Start 06/17/16 at 10:30 Ibuprofen (Motrin) 800 mg BID PO Last administered on 06/18/16 08:54; Admin Dose 800 MG; Start 06/17/16 at 12:00; Stop 06/20/16 at 11:59 Ondansetron HCl (Zofran Inj) 4 mg Q4H PRN IV NAUSEA AND/OR VOMITING Last administered on 06/17/16 14:40; Admin Dose 4 MG; Start 06/17/16 at 15:00 Amlodipine Besylate (Norvasc) 2.5 mg DAILY PO Last administered on 06/18/16 08 :56; Admin Dose 2.5 MG; Start 06/18/16 at 09:00 Fish Oil (Fish Oil) 1,000 mg BID PO ; Start 06/18/16 at 21:00 CARLOS MARTINEZ MD Jun 18, 2016 16:01
[2016-06-18] MEDS ORDERED: INFLUENZA VIRUS VACCINE 0.5 ML SYG IM* ONE (18:00)
[2016-06-18] MEDS ORDERED: FISH OIL 1,000 MG CAP PO SCH (21:00)
--- NOTE | 2016-06-19 19:52 | QN ---
Documentation Comment [id number] CARLOS MARTINEZ MD Jun 19, 2016 19:52
--- NOTE | 2016-06-20 00:53 | DS ---
DATE OF ADMISSION: 06/16/2016 DATE OF DISCHARGE: 06/18/2016 HOSPITAL COURSE: The patient was admitted with chest pain, noted to have chest wall pain, was seen by Dr. Ma in consultation. Lexiscan was done which was negative, and patient was instructed to be discharged home with further workup as an outpatient. DISCHARGE DIAGNOSES: Include: 1. Chest wall pain, myocardial infarction ruled out. 2. The patient has history of hypertension. 3. Diabetes mellitus. 4. Coronary artery disease. 5. History of coronary artery bypass graft. 6. Dyslipidemia. 7. Anemia. 8. Hyponatremia. 9. Atherosclerotic heart disease. 10. History of anxiety. 11. Musculoskeletal pain. 12. Lexiscan, no change. PLAN: Home medications were continued. The patient to follow with own PCP. DIET: Cardiac diet. Dictated By: CARLOS MARTINEZ MD BS/NTS Conf#: [id number] DID#: [id number]
== END 2016-06-18 19:35 | disposition home or self-care (01) | DRG 313 ==
LOC: E/R 17:23 → MS4 20:10
PROVIDERS: ADMIT Internal Medicine Nephrology; ATTEND Internal Medicine Nephrology
PROC: C23GYZZ Positron Emission Tomographic (PET) Imaging of Myocardium using Other Radionuclide (ICD-10-PCS; principal; 2016-06-18)
DX: R07.89 Other chest pain (principal); I25.10 Atherosclerotic heart disease of native coronary artery without angina pectoris; I42.9 Cardiomyopathy, unspecified; E87.1 Hypo-osmolality and hyponatremia; I11.0 Hypertensive heart disease with heart failure; I50.9 Heart failure, unspecified; E11.9 Type 2 diabetes mellitus without complications; D64.9 Anemia, unspecified; Z95.1 Presence of aortocoronary bypass graft; F41.9 Anxiety disorder, unspecified; Z79.82 Long term (current) use of aspirin; Z79.4 Long term (current) use of insulin; Z95.810 Presence of automatic (implantable) cardiac defibrillator; I25.9 Chronic ischemic heart disease, unspecified; R94.31 Abnormal electrocardiogram [ECG] [EKG]; Z95.5 Presence of coronary angioplasty implant and graft; Z79.02 Long term (current) use of antithrombotics/antiplatelets; F17.200 Nicotine dependence, unspecified, uncomplicated
CPT/HCPCS: 36415; 71010; 78452; 80048; 80053; 80061; 82962; 84484; 85025; 85610; 85730; 90686; 93005; 93017; 93306; 96374; 96375; 96376; A9500; A9505; J1650; J1815; J2270; J2405; J2785

== ENCOUNTER 2016-07-09 23:12 | Inpatient (IN) | payer OTHER ==
[~2016-07-09] VITALS: Ht 167.6 cm; Wt 77.9 kg
[~2016-07-09 23:12] MED LIST changes: +BACL10TA PO; +CYAN100080 PO; +DOCU-159 PO; +GABA300C16 PO; +IBUP800T25 PO; -METF-388 PO; +METF1000 PO; +MORP15TA92 PO; +OMEG-135 PO; -SERT25TA83 PO
[2016-07-09] MEDS ORDERED: NITROGLYCERIN 2% 1 GM OINT PKT TD STA (23:16)
[2016-07-09] MEDS ORDERED: morphine 4 MG/ML VIAL IV STA (23:16)
[2016-07-09] MEDS ORDERED: ONDANSETRON 4 MG INJ IV STA (23:16)
[2016-07-09] MEDS ORDERED: SOD CHLORIDE 0.9% 500 ML IV STA (23:16)
--- NOTE | 2016-07-10 00:01 | RADRPT ---
PROCEDURE: XR Chest. CLINICAL INDICATION: Chest pain. TECHNIQUE: Portable AP semi erect view of the chest was obtained. COMPARISON: 06/16/2016 FINDINGS: The cardiomediastinal silhouette is mildly enlarged. A dual chamber left subclavian approach cardia c pacemaker is present. The lungs are clear of focal infiltrates. Minimal prominence of the pulmon myah vasculature is similar to the prior study unable to exclude a chronic congestive heart failure p attern. There is no evidence of pleural effusion. No pneumothorax is seen. Sternotomy wires are a gain identified without acute osseous abnormality. Calcification is visualized within the aortic arc h. RPTAT:HJJR IMPRESSION: Stable cardiomegaly, post thoracotomy changes and dual chamber cardiac pacemaker with minimal promin ence of the pulmonary vasculature raising a suggestion of mild chronic congestive heart failure unch anged from the study of 06/16/2016. Physician Bharati Date Time Electronically viewed and signed by Physician Bharati on 07/10/2016 00:00 /
[2016-07-10] MEDS ORDERED: HYDROmorphONE 1 MG/ML SYG IV STA ×2 (00:29→09:15)
[2016-07-10 00:31] LABS: ALBUMIN 4.5 g/dl (3.3-4.9); POTASSIUM 3.8 mmol/L (3.5-5.1)
[2016-07-10 00:32] LABS: INR 1.05; PROTIME 13.7 Sec (12.2-14.2); PT RATIO 1.1
[2016-07-10 00:33] LABS: CREATININE 0.79 mg/dl (0.61-1.24); PARTIAL THROMBOPLASTIN TIME 27.4 Sec (25.0-35.0)
[2016-07-10 00:34] LABS: ALBUMIN/GLOBULIN RATIO 1.28; BILIRUBIN,INDIRECT 0.1 mg/dl (0-1.1); BILIRUBIN,TOTAL 0.1 mg/dl (0.2-1.3); CALCIUM 10.3 mg/dl (8.4-10.2)
[2016-07-10 00:43] LABS: BASOPHILS % 0.5 % (0.0-2.0); EOSINOPHILS # 0.2 10^3/ul (0.0-0.5); EOSINOPHILS % 2.3 % (0.0-7.0); HEMATOCRIT 40.9 % (42.0-52.0); HEMOGLOBIN 13.7 g/dl (14.0-18.0); LYMPHOCYTES # 2.8 10^3/ul (0.8-2.9); LYMPHOCYTES % 29.9 % (15.0-51.0); MEAN CORPUSCULAR HGB CONC 33.5 g/dl (32.0-37.0); MEAN CORPUSCULAR VOLUME 89.4 fl (82.0-101.0); MEAN PLATELET VOLUME 9.1 fl (7.4-10.4); MONOCYTES % 10.4 % (0.0-11.0); NEUTROPHIL # 5.4 10^3/ul (1.6-7.5); NEUTROPHILS % 56.9 % (39.0-77.0); PLATELET COUNT 208 10^3/UL (140-440); RED BLOOD COUNT 4.58 10^6/ul (4.70-6.10); UNCORRECTED WBC 9.4 10^3/ul (4.8-10.8); WHITE BLOOD COUNT 9.4 10^3/ul (4.8-10.8)
[2016-07-10 00:45] LABS: TROPONIN-I 0.014 ng/ml (0.00-0.12)
[2016-07-10 00:47] LABS: CONDITION 1
[2016-07-10] MEDS ORDERED: SOD CHLORIDE 0.9% 1,000 ML IV SCH (01:07)
[2016-07-10] MEDS ORDERED: ACETAMINOPHEN 325 MG TAB PO PRN ×2 (01:30→18:30)
[2016-07-10] MEDS ORDERED: ONDANSETRON 4 MG INJ IV PRN ×2 (01:30→18:30)
--- NOTE | 2016-07-10 01:49 | ERA ---
ER Documentation Chief Complaint Date/Time DATE: 07/10/16 TIME: 01:45 Chief Complaint left chest pain x 4 hrs, increased w/ palpation/respiration, to L arm/leg HPI There is a 56-year-old male who was in with chest pain for 4 hours. Patient noted is worse with deep respirations and radiates his left arm and leg is mild to moderate in intensity. It is sharp, pressure-like with no signs of any limiting factors. Patient has some known cardiac history of previous cardiac stenting. ROS All systems reviewed and are negative except as per history of present illness. Medications Home Meds Active Scripts [place]-3 Fatty Acids/Fish Oil (Fish Oil 1,000 mg Capsule) 1 Each Capsule, 1 EACH PO BID for 28 Days, CAP Prov:CARLOS MARTINEZ MD 06/18/16 Ibuprofen* (Ibuprofen*) 800 Mg Tablet, 800 MG PO BID for 7 Days, TAB Prov:CARLOS MARTINEZ MD 06/18/16 Ranolazine* (Ranexa*) 500 Mg Tabsr, 1000 MG PO Q12 for 30 Days, TAB Prov:CARLOS MARTINEZ MD 05/02/15 Phenytoin* Sodium Extended (Dilantin*) 300 Mg Capsule, 300 MG PO HS, #30 CAP Prov:ALIZA CUENCA MD 12/22/14 Ranolazine* (Ranexa*) 500 Mg Tabsr, 500 MG PO Q12, #60 TAB Prov:ALIZA CUENCA MD 12/22/14 Pantoprazole (Protonix) 40 Mg Tabec, 40 MG PO DAILY@06, #30 TAB Prov:ALIZA CUENCA MD 12/22/14 Nitroglycerin* (Nitrostat*) 25 Tab Subl, 1 TAB SL Q5M Y for CHEST PAIN, #90 TAB Prov:ALIZA CUENCA MD 12/22/14 Losartan Potassium* (Cozaar*) 50 Mg Tab, 50 MG PO Q12, #60 TAB Prov:ALIZA CUENCA MD 12/22/14 Albuterol/Ipratropium* (Combivent Respimat*) 20-100 Mcg/Inh - 4 Gm Aer.w.adap, 2 PUFF IH QID, #1 INH Prov:ALIZA CUENCA MD 05/31/14 Reported Medications Cyanocobalamin* (Vitamin B-12*) 1,000 Mcg Tablet.sa, 1000 MCG PO DAILY, TAB 06/16/16 Docusate Sodium* (Docusate Sodium*) 100 Mg Capsule, 100 MG PO TID, #60 CAP 06/16/16 Baclofen* (Baclofen*) 10 Mg Tablet, 10 MG PO BID, TAB 06/16/16 Morphine Sulfate* (Ms Contin*) 15 Mg Tablet.sa, 15 MG PO Q6, TAB.SA 06/16/16 Gabapentin* (Gabapentin*) 300 Mg Capsule, 300 MG PO BID, #60 CAP 06/16/16 Isosorbide Mononitrate* (Isosorbide Mononitrate*) 60 Mg Tab.er.24h, 60 MG PO DAILY, TAB 04/27/15 Atorvastatin* (Atorvastatin*) 40 Mg Tablet, 40 MG PO HS, TAB 12/18/14 Furosemide* (Furosemide*) 40 Mg Tablet, 40 MG PO DAILY, TAB 05/18/14 Alprazolam* (Alprazolam*) 0.5 Mg Tablet, 0.5 MG PO Q8 for ANXIETY, TAB 05/18/14 Clopidogrel Bisulfate (Clopidogrel) 75 Mg Tablet, 75 MG PO DAILY, TAB 04/26/14 Acetaminophen (Mapap) 500 Mg Capsule, 500 MG PO Q6 Y for PAIN, CAP 04/26/14 Meclizine Hcl* (Meclizine Hcl*) 25 Mg Tablet, 25 MG PO TID Y for VERTIGO, TAB 04/26/14 Carvedilol* (Carvedilol*) 12.5 Mg Tablet, 12.5 MG PO BID, TAB 04/26/14 Metformin Hcl* (Metformin Hcl*) 1,000 Mg Tablet, 1000 MG PO BID, TAB 04/26/14 Aspirin* (Aspirin* (EC)) 81 Mg Tablet.dr, 81 MG PO DAILY, TAB 04/26/14 Glimepiride* (Glimepiride*) 1 Mg Tablet, 1 MG PO DAILY, TAB 04/26/14 Zolpidem Tartrate* (Zolpidem Tartrate*) 10 Mg Tablet, 10 MG PO HS Y for INSOMNIA , TAB 04/26/14 Amlodipine Besylate* (Amlodipine Besylate*) 5 Mg Tablet, 5 MG PO DAILY, TAB 04/26/14 Blood Sugar Diagnostic (FREESTYLE LITE TEST STRIPS) 1 Each Strip, 1 EACH MC QID , STRIP 04/26/14 Insulin Lispro (Humalog) 100 U/Ml Cartridge, 0 SC SLIDING SCALE AC, EA 04/26/14 Insulin Isophan/Regular (Humulin 70/30) 100 Units/Ml Susp, 15 UNIT SC PM, EA 04/26/14 Insulin Isophan/Regular (Humulin 70/30) 100 Units/Ml Susp, 15 UNIT SC AM, EA 04/26/14 Allergies Allergies: Coded Allergies: sumatriptan (Verified Allergy, Unknown, 12/21/14) sumatriptan succinate (Verified Allergy, Unknown, 12/21/14) venlafaxine HCl (Verified Allergy, Unknown, 12/21/14) PMhx/Soc History of Surgery: Yes (BYPASS 2008, PACEMAKER PLACED) Anesthesia Reaction: No Hx Neurological Disorder: No Hx Respiratory Disorders: No Hx Cardiac Disorders: Yes ([place]) Hx Psychiatric Problems: No Hx Miscellaneous Medical Probl: No Hx Alcohol Use: No Hx Substance Use: No Hx Tobacco Use: No Smoking Status: Former smoker Physical Exam Vitals Vital Signs Date Time Temp Pulse Resp B/P Pulse Ox O2 Delivery O2 Flow Rate FiO2 07/09/16 23:18 97.7 66 21 147/103 100 07/09/16 23:15 Nasal Cannula 3 07/09/16 23:15 62 30 131/79 100 Room Air Physical Exam Const: [] Head: Atraumatic Eyes: Normal Conjunctiva ENT: Normal External Ears, Nose and Mouth. Neck: Full range of motion..~ No meningismus. Resp: Clear to auscultation bilaterally Cardio: Regular rate and rhythm, no murmurs Abd: Soft, non tender, non distended. Normal bowel sounds Skin: No petechiae or rashes Back: No midline or flank tenderness Ext: No cyanosis, or edema Neur: Awake and alert Psych: Normal Mood and Affect Result Diagram: 07/09/16232407/09/162324 Results 24 hrs Laboratory Tests Test 07/09/16 23:25 Activated Partial Thromboplast Time 27.4Sec Alanine Aminotransferase (ALT/SGPT) 19IU/L Albumin 4.5g/dl Albumin/Globulin Ratio 1.28 Alkaline Phosphatase 60IU/L Anion Gap 23 Aspartate Amino Transf (AST/SGOT) 15IU/L B-Type Natriuretic Peptide 1580PG/ML Basophils # 0.010^3/ul Basophils % 0.5% Blood Urea Nitrogen 24mg/dl Calcium Level 10.3mg/dl Carbon Dioxide Level 25mmol/L Chloride Level 98mmol/L Creatinine 0.79mg/dl Direct Bilirubin 0.00mg/dl Eosinophils # 0.210^3/ul Eosinophils % 2.3% Globulin 3.50g/dl Glucose Level 180mg/dl Hematocrit 40.9% Hemoglobin 13.7g/dl INR International Normalized Ratio 1.05 Indirect Bilirubin 0.1mg/dl Lymphocytes # 2.810^3/ul Lymphocytes % 29.9% Mean Corpuscular Hemoglobin 30.0pg Mean Corpuscular Hemoglobin Concent 33.5g/dl Mean Corpuscular Volume 89.4fl Mean Platelet Volume 9.1fl Monocytes # 1.010^3/ul Monocytes % 10.4% Neutrophils # 5.410^3/ul Neutrophils % 56.9% Nucleated Red Blood Cells # 0.010^3/ul Nucleated Red Blood Cells % 0.0/100WBC Platelet Count 43463^3/UL Potassium Level 3.8mmol/L Prothrombin Time 13.7Sec Prothrombin Time Ratio 1.1 Red Blood Count 4.5810^6/ul Red Cell Distribution Width 14.0% Sodium Level 142mmol/L Total Bilirubin 0.1mg/dl Total Protein 8.0g/dl Troponin I 0.014ng/ml White Blood Count 9.410^3/ul Current Medications Medications (Trade) Dose Ordered Sig/Cecil Route PRN Reason Start Time Stop Time Status Last Admin Dose Admin Sodium Chloride (NS) 500 ml @ 500 mls/hr Q1H STAT IV 07/09/16 23:16 07/10/16 00:15 DC 07/09/16 23:38 Nitroglycerin (Nitroglycerin 2% Oint) 1 inch ONCE STAT TD 07/09/16 23:16 07/09/16 23:17 DC 07/09/16 23:37 Morphine Sulfate (morphine) 4 mg ONCE STAT IV 07/09/16 23:16 07/09/16 23:17 DC 07/09/16 23:37 Ondansetron HCl (Zofran Inj) 4 mg ONCE STAT IV 07/09/16 23:16 07/09/16 23:17 DC 07/09/16 23:33 Hydromorphone HCl 1 mg 1 mg ONCE STAT IV 07/10/16 00:29 07/10/16 00:30 DC 07/10/16 00:34 Sodium Chloride (NS) 1,000 ml @ 80 mls/hr [id number] IV 07/10/16 01:07 07/10/16 13:36 Ondansetron HCl (Zofran Inj) 4 mg ER BRIDGE PRN IV NAUSEA AND/OR VOMITING 07/10/16 01:30 07/11/16 01:29 Acetaminophen (Tylenol Tab) 650 mg ER BRIDGE PRN PO MILD PAIN/FEVER 07/10/16 01:30 07/11/16 01:29 Procedures/MDM EKG: Rate/Rhythm: Normal Sinus Rhythm QRS, ST, T-waves: No changes consistent w/ acute ischemia Impression: No evidence of ischemia or arrhythmia Chest X-ray 1V Interpreted by me: Soft Tissue: No acute abnormalities Bones: No acute abnormalities Mediastinum/Cardiac Silhouette/Lungs: No acute abnormalities Patient's symptoms are concerning for cardiac cause will require inpatient workup and continuous monitoring. Further w/u for ischemia, arrhythmia, PE or dissection will be deferred to the inpatient team. Patient's thoracic symptoms seem unstable at this time and require inpatient workup. No evidence of PE or dissection at this time but occult ischemia or fatal dysrhythmia cannot be ruled out. Accepting Care Team: Current data and ongoing care discussed. Time: 12 AM the Primary Provider: Dr. Martinez Consulting: [XOXOXO] Outstanding Data: none Departure Diagnosis: Primary Impression: Chest pain Qualified Code: I20.9 - Ischemic chest pain Condition: Serious RACHEL AZUL Jul 10, 2016 01:49
[2016-07-10] MEDS ORDERED: HYDROmorphONE 1 MG/ML SYG IV ONE (04:33)
[2016-07-10] MEDS ORDERED: ONDANSETRON 4 MG INJ IV STA (09:15)
[2016-07-10] MEDS ORDERED: ZOLPIDEM 5 MG TAB PO PRN ×2 (10:30→18:30)
[2016-07-10] MEDS ORDERED: MECLIZINE 25 MG TAB PO PRN (10:30)
[2016-07-10] MEDS ORDERED: ACETAMINOPHEN 500 MG TAB PO PRN (10:30)
[2016-07-10] MEDS ORDERED: ISOSORBIDE MONONITRATE(SR)60 MG TAB PO SCH (12:00)
[2016-07-10] MEDS: ASPIRIN (EC) 81 MG TAB PO SCH (13:00)
[2016-07-10] MEDS: CLOPIDOGREL 75 MG TAB PO SCH (13:00)
[2016-07-10] MEDS: LOSARTAN 50 MG TAB PO SCH ×2 (13:00→20:43)
[2016-07-10] MEDS: GABAPENTIN 300 MG CAP PO SCH (13:00)
[2016-07-10] MEDS: morphine (ER) 15 MG TAB PO SCH ×2 (13:00→15:25)
[2016-07-10] MEDS: FUROSEMIDE 40 MG TAB PO SCH (13:00)
[2016-07-10] MEDS: IBUPROFEN 800 MG TAB PO SCH (13:00)
[2016-07-10] MEDS: AMLODIPINE 5 MG TAB PO SCH ×2 (13:00→13:54)
[2016-07-10] MEDS: DOCUSATE SODIUM 100 MG CAP PO SCH ×2 (13:00→20:40)
[2016-07-10] MEDS: NITROGLYCERIN (SL) 0.4 MG TAB SL PRN (13:41)
[2016-07-10] MEDS: ALPRAZOLAM 0.5 MG TAB PO SCH ×2 (14:00→15:25)
[2016-07-10] MEDS: HYDROmorphONE 1 MG/ML SYG IV PRN ×2 (14:34→18:35)
[2016-07-10 15:28] VITALS: TEMP 98.5
--- NOTE | 2016-07-10 16:05 | CONS ---
DATE OF ADMISSION: 07/09/2016 DATE OF CONSULTATION: 07/10/2016 CARDIOLOGY CONSULTATION REASON FOR CONSULTATION: Chest pain refractory to medical therapy, assess for acute coronary syndro me. REQUESTING PHYSICIAN: Shashank aMrtinez MD HISTORY OF PRESENT ILLNESS: Mr. Louis is a 56-year-old male with a history of coronary artery di sease, status post prior PTCA and stent placement to the obtuse marginal in 11/2014, coronary artery bypass graft surgery with at that time a patent KNOTT to LAD and all other grafts found to be occlud ed, cardiomyopathy with severely depressed left ventricular ejection fraction last one only approxim ately 30% to 35% by echo 06/2015, permanent pacemaker/AICD placement, dyslipidemia, hypertension, wh o presents with refractory chest pain described as a sharp to stabbing sensation and associated pres sure-like component. Upon arrival in the emergency department, temperature 97.7, blood pressure 131 /79, pulse 60, respiratory rate 37, 100% on 3 liters. The patient's labs revealed a white cell of 9 .4, hemoglobin 13.7, platelet count of 208. A sodium of 142, potassium 3.8, creatinine 0.79, BUN 2 4. Troponin 0.014. BNP of 1580. INR of 1.0. The patient underwent a chest x-ray revealing stable cardiomegaly, status post thoracotomy, prominence of pulmonary vasculature raising suggestion of mi ld congestive heart failure. The patient's electrocardiogram revealed an atrial paced rhythm at a r ate of 60 with left axis deviation, anteroseptal Qs, lateral T wave inversion. The patient at this time has been treated with Dilaudid, IV fluid hydration, nitro paste 1 inch, morphine, Zofran and aw aits admit to the floor at this time. PAST MEDICAL HISTORY: As above in HPI with the patient currently on a transplant evaluation list [facility] due to cardiomyopathy and refractory chest pain. MEDICATIONS PRIOR TO ADMIT: 1. Baclofen. 2. Plavix 75 mg daily. 3. Norvasc 5 mg daily. 4. Atorvastatin 40 mg daily. 5. Carvedilol 12.5 mg p.o. b.i.d. 6. Imdur 60 mg daily. 7. Cozaar 50 mg q.12h. 8. Sublingual nitroglycerin p.r.n. 9. Fish oil. 10. Ranexa 1000 q.12h. 11. Tylenol p.r.n. 12. Alprazolam p.r.n. 13. Aspirin 81 mg daily. 14. Gabapentin 300 mg p.o. b.i.d. 15. Ibuprofen p.r.n. 16. Morphine p.r.n. 17. Dilantin mg at bedtime. 18. Ambien. MEDICATIONS CURRENTLY IN HOSPITAL: 1. Vitamin B12. 2. Amaryl. 3. Insulin sliding scale. 4. Protonix. 5. Lipitor 40 mg at bedtime. 6. Baclofen. 7. Dilantin. 8. Ranexa 1000 mg q.12h. 9. Glucophage. 10. Dilaudid p.r.n. 11. Xanax p.r.n. 12. Colace p.r.n. 13. Norvasc 5 mg daily. 14. Aspirin 81 mg daily. 15. Carvedilol 12.5 mg p.o. b.i.d. 16. Plavix 75 mg daily. 17. Lasix 40 mg daily. 18. Gabapentin 800 mg b.i.d. 19. Imdur 60 mg daily. 20. Cozaar 50 mg q.12h. 21. Morphine 15 mg p.o. q.6h. 22. Tylenol p.r.n. 23. Nitroglycerin p.r.n. 24. Zofran p.r.n. ALLERGIES: 1. IMITREX. 2. VENLAFAXINE. SOCIAL HISTORY: No tobacco, ETOH or illicit drug use. FAMILY HISTORY: Negative for sudden cardiac or early CAD. REVIEW OF SYSTEMS: As above in HPI. CONSTITUTIONAL: No fevers, chills. PULMONARY: Shortness of breath. CARDIOVASCULAR: Congestive heart failure, chest pain. GASTROINTESTINAL: No vomiting. GENITOURINARY: No hematuria. MUSCULOSKELETAL: Degenerative joint disease. PSYCHIATRIC: Anxiety. NEUROLOGIC: No documented history of CVA. ENDOCRINE: Diabetes mellitus. PHYSICAL EXAMINATION: VITAL SIGNS: Temperature 97.7, blood pressure most recently 146/77, pulse 60, respiratory rate 20, saturating 100%. GENERAL: The patient is alert, awake, complaining of substernal chest pain. NECK: JVP approximately 9 to 10 cm of water. CHEST: Bibasilar crackles. HEART: Regular rate and rhythm, S1, increased S2. Laterally displaced PMI. A II/ systolic murmu r. ABDOMEN: Positive bowel sounds, soft. EXTREMITIES: No pitting edema, 1+ pulses bilaterally posterior tibial. LABORATORY DATA: As above in HPI with no further labs for my review at this time. IMAGING STUDIES: As above in HPI. No further imaging studies for my review at this time. ECG: As above in HPI. No further electrocardiograms for my review at this time. IMPRESSION: 1. Congestive heart failure exacerbation, systolic, acute on chronic. 2. Angina refractory to medical therapy. 3. History of coronary artery disease, status post prior percutaneous transluminal coronary angiopl asty and stent placement. 4. History of coronary artery bypass grafting with patent KNOTT at last catheterization and other gr afts occluded. 5. Increased BNP consistent with the patient's congestive heart failure. 6. Hypertension, labile. 7. Anemia, mild. 8. Dyslipidemia. 9. Diabetes mellitus. 10. Possible seizure disorder, on medications. RECOMMENDATIONS: 1. At this time, the patient will be admitted to telemetry monitoring where we will complete a rule out for myocardial infarction to ensure the patient's chest pain is not the result of an acute jama nary syndrome such as acute myocardial infarction. 2. We will continue the patient's current carvedilol and losartan for treatment of cardiomyopathy a nd also for antianginal effect. 3. Continue the patient's additional Norvasc, Ranexa and will up titrate Imdur for their antiangina l effects. 4. Continue the patient's statin and adjust it according to a fasting lipid panel to be checked. 5. Continue to check serial EKGs to assess for any significant ongoing changes and given the patien t's refractory chest pain at this time, I believe the patient will benefit from a repeat catheteriza tion to assess for reversible obstructive coronary artery disease leading to the patient's refractor y chest pain. In addition, the patient is requiring a right heart catheterization as part of transp [facility] evaluation for [facility], which has been addressed to me from the [facility] transplant doctors as recently as yesterday. Thank you for allowing me to take part in the care of this patient. I will continue to follow along very closely with you. Further recommendations will be made as the patient progresses through his inpatient hospital clinical course. Dictated By: NICHOL JACKSON/MOISES Conf#: [id number] DID#: [id number] CC: SHASHANK MARTINEZ MD;*End*
[2016-07-10 17:16] VITALS: Ht 167.6 cm; Wt 77.9 kg
[2016-07-10 17:17] VITALS: BP 124/68; PULSE 58; RESP 18
[2016-07-10 17:24] VITALS: PULSE 60
[2016-07-10] MEDS ORDERED: GLUCOSE GEL 15 GRAM TUBE PO PRN ×2 (18:00)
[2016-07-10] MEDS ORDERED: DEXTROSE 50% 50 ML SYRINGE IV PRN ×2 (18:00)
[2016-07-10] MEDS ORDERED: GLUCOSE GEL 15 GRAM TUBE BUCCAL PRN (18:00)
[2016-07-10] MEDS ORDERED: GLUCAGON 1 MG INJ IM PRN (18:00)
[2016-07-10] MEDS: metFORMIN 500 MG TAB PO SCH (18:15)
[2016-07-10] MEDS ORDERED: NACL 0.9% 3 ML SYG IV SCH (18:30)
[2016-07-10] MEDS ORDERED: MAGNESIUM HYDROXIDE 30ML CUP PO PRN (18:30)
[2016-07-10] MEDS ORDERED: NA PHOSPHATE/BIPHOS 133 ML ENEMA PR PRN (18:30)
[2016-07-10] MEDS ORDERED: HYDROCODONE/APAP (5/325) TAB PO PRN (18:30)
[2016-07-10] MEDS ORDERED: ACETAMINOPHEN 650 MG SUPP PR PRN (18:30)
[2016-07-10] MEDS ORDERED: BISACODYL (EC) 5 MG TAB PO PRN (18:30)
[2016-07-10] MEDS ORDERED: DOCUSATE SODIUM 100 MG CAP PO PRN (18:30)
--- NOTE | 2016-07-10 18:32 | QN ---
Documentation Comment [id number] CARLOS MARTINEZ MD Jul 10, 2016 18:32
--- NOTE | 2016-07-10 18:56 | HP ---
DATE OF ADMISSION: 07/10/2016 HISTORY OF PRESENT ILLNESS: The patient presented to this hospital, recently discharged from here w ith diagnosis of CAD. The patient previously was discharged home with chest wall pain, myocardial i nfarction ruled out, hypertension, diabetes mellitus, CAD, history of CABG, dyslipidemia, anemia, hy ponatremia, atherosclerotic heart disease, anxiety, musculoskeletal pain. Lexiscan, no change. The patient presents with left-sided chest pain again and is being seen by Dr. Olsen in consultation. ALLERGY HISTORY: 1. SUMATRIPTAN. 2. EFFEXOR. SOCIAL HISTORY: He denies at this point. HOME MEDICATION: The patient is on: 1. Albuterol. 2. Xanax. 3. Amlodipine. 4. Aspirin. 5. Lipitor. 6. Baclofen. 7. Coreg. 8. Plavix. 9. Cyanocobalamin. 10. Docusate sodium. 11. Lasix. 12. Gabapentin. 13. Amaryl. 14. Ibuprofen. 15. Insulin. 16. Isosorbide. 17. Losartan. 18. Meclizine. 19. Metformin. 20. Morphine. 21. Nitroglycerin. 22. [place]-3. 23. Protonix. 24. Dilantin. 25. Ranexa. 26. Ambien. REVIEW OF SYSTEMS: HEENT: Unremarkable. RESPIRATORY: On and off short of breath on exertion. CARDIOVASCULAR: As mentioned above, on and off chest pain, left-sided. The patient's pain is produ edson like a chest pressure. ABDOMEN: Unremarkable. EXTREMITIES: Unremarkable. PHYSICAL EXAMINATION: GENERAL: The patient is awake and alert. VITAL SIGNS: Pulse of 60, blood pressure 124/68. HEAD: Atraumatic, normocephalic. Pupils equal, reactive to light. NECK: Supple. No JVD. LUNGS: Clear. CARDIOVASCULAR: S1, S2 are normal. ABDOMEN: Soft, nontender. Bowel sounds present. No palpable mass or hepatosplenomegaly. No guard ing, rebound, tenderness. EXTREMITIES: There is no cyanosis, clubbing, or edema. CENTRAL NERVOUS SYSTEM: The patient is awake, alert with no focal deficit. IMAGING: Chest x-ray shows cardiomegaly status post thoracostomy changes. Pacemaker noted in the c hest wall. LABORATORY DATA: Hematocrit 40.9, platelets ____. Sodium 140, potassium 3.8, BUN 24, creatinine 0. 79. BNP 1580. IMPRESSION: 1. Chest pain. 2. Rule out myocardial infarction. 3. Hypertension. 4. Diabetes mellitus. 5. The patient has a pacemaker placement. 6. History of coronary artery disease. 7. History of congestive heart failure. 8. History of coronary artery bypass graft. 9. History of anxiety. 10. History of insomnia. 11. History of chronic pain. PLAN: To follow recommendations from cardiology. Continue sliding scale. The patient's home medic ations will be reviewed and continued. Orders were done. Dictated By: CARLOS MARTINEZ MD BS/NTS Conf#: [id number] DID#: [id number]
[2016-07-10 19:12] LABS: TROPONIN-I 0.013 ng/ml (0.00-0.12)
[2016-07-10 19:14] VITALS: BP 115/56; RESP 16
[2016-07-10] MEDS ORDERED: **FLU VACCINE PREVIOUSLY DISPENSED XX PRN (19:30)
[2016-07-10 20:07] VITALS: PULSE 60
[2016-07-10] MEDS: ATORVASTATIN 40 MG TAB PO SCH (20:44)
[2016-07-10] MEDS: BACLOFEN 10 MG TAB PO SCH (20:44)
[2016-07-10] MEDS: RANOLAZINE (SR) 500 MG TAB PO SCH (20:45)
[2016-07-10] MEDS: FAMOTIDINE 20 MG TAB PO SCH (20:45)
[2016-07-10] MEDS: PHENYTOIN 100 MG CAP PO SCH (20:46)
[2016-07-10] MEDS ORDERED: RANOLAZINE (SR) 500 MG TAB PO SCH (21:00)
[2016-07-10 23:59] VITALS: BP 118/56; RESP 16
[2016-07-11] VITALS (13 sets, daily range): BP systolic 116–149; BP diastolic 56–70; PULSE 60–64; RESP 16–20
[2016-07-11] MEDS: morphine (ER) 15 MG TAB PO SCH ×4 (00:59→19:19)
[2016-07-11 01:27] LABS: CK-MB 0.73 ng/ml (0.0-2.4)
[2016-07-11 01:30] LABS: TROPONIN-I 0.024 ng/ml (0.00-0.12)
[2016-07-11] MEDS: PANTOPRAZOLE (EC) 40 MG TAB PO SCH (06:08)
[2016-07-11] MEDS: ALPRAZOLAM 0.5 MG TAB PO SCH ×3 (06:08→22:28)
[2016-07-11 06:43] LABS: CHOL/HDL RATIO 6.5 RATIO
[2016-07-11 07:11] LABS: CK-MB 0.73 ng/ml (0.0-2.4); TROPONIN-I 0.013 ng/ml (0.00-0.12)
[2016-07-11] MEDS: DOCUSATE SODIUM 100 MG CAP PO SCH ×3 (09:04→20:18)
[2016-07-11] MEDS: GLIMEPIRIDE 2 MG TAB PO SCH (09:04)
[2016-07-11] MEDS: LOSARTAN 50 MG TAB PO SCH ×2 (09:07→20:19)
[2016-07-11] MEDS: ASPIRIN (EC) 81 MG TAB PO SCH (09:07)
[2016-07-11] MEDS: ISOSORBIDE MONONITRATE(SR)30 MG TAB PO SCH (09:08)
[2016-07-11] MEDS: FAMOTIDINE 20 MG TAB PO SCH ×2 (09:09→20:18)
[2016-07-11] MEDS: BACLOFEN 10 MG TAB PO SCH ×2 (09:09→20:18)
[2016-07-11] MEDS: CLOPIDOGREL 75 MG TAB PO SCH (09:09)
[2016-07-11] MEDS: RANOLAZINE (SR) 500 MG TAB PO SCH ×2 (09:10→20:19)
[2016-07-11] MEDS: CYANOCOBALAMIN 500 MCG TAB PO SCH (09:10)
[2016-07-11] MEDS: metFORMIN 500 MG TAB PO SCH ×2 (09:11→19:19)
[2016-07-11] MEDS: ENOXAPARIN 40 MG/0.4 ML SYG SC SCH (09:19)
[2016-07-11] MEDS: HUMULIN 70/30 3ML VIAL SC SCH (09:37)
[2016-07-11] MEDS: NITROGLYCERIN (SL) 0.4 MG TAB SL PRN ×2 (10:37→10:45)
[2016-07-11] MEDS: HYDROmorphONE 1 MG/ML SYG IV PRN ×3 (10:37→19:53)
--- NOTE | 2016-07-11 11:44 | CONS ---
Date/Time of Note Date/Time of Note DATE: 07/11/16 TIME: 11:40 Assessment/Plan Assessment/Plan Chief Complaint/Hosp Course IMPRESSION: 1. Congestive heart failure exacerbation, systolic, acute on chronic. 2. Angina refractory to medical therapy.-negative troponin x3 3. History of coronary artery disease, status post prior percutaneous transluminal coronary angioplasty and stent placement. 4. History of coronary artery bypass grafting with patent KNOTT at last catheterization and other grafts occluded. 5. Increased BNP consistent with the patient's congestive heart failure. 6. Hypertension, labile. 7. Anemia, mild. 8. Dyslipidemia. 9. Diabetes mellitus. 10. Possible seizure disorder, on medications. Rec: -Tele -serial ecg's -Continue current BB/ranexa/imdur/norvasc anti-anginal medications -Continue asa/plavix -Continue afterload reduction with losartan -LHC and RHC tomorrow due to refractory angina with multiple recurrent admissions to hospital and for transplant eval completion Problems: Consultation Date/Type/Reason Admit Date/Time Jul 10, 2016 at 01:07 Initial Consult Date 07/10/2016 Type of Consultation: Cardiology Reason for Consultation chest pain/cardiomyopathy Referring Provider: CARLOS MARTINEZ Exam/Review of Systems Vital Signs Vitals Vital Signs Date Time Temp Pulse Resp B/P Pulse Ox O2 Delivery O2 Flow Rate FiO2 07/11/16 11:05 97.9 60 20 141/70 99 07/11/16 09:24 Nasal Cannula 2.0 Intake and Output 07/10/16 07/10/16 07/11/16 15:00 23:00 07:00 Intake Total 400 ml 500 ml Balance 400 ml 500 ml Exam Review of Systems: CONSTITUTIONAL: No fevers, chills. PULMONARY: No sob CARDIOVASCULAR: ongoing chest pain GASTROINTESTINAL: No nausea/vomiting. GENITOURINARY: No hematuria/dysuria. MUSCULOSKELETAL: No myagias/arthalgias. PSYCHIATRIC: The patient denies depression. NEUROLOGIC: No weakness Constitutional: alert, oriented Psych: no complaints Head: normocephalic ENMT: mucosa pink and moist Neck: jvd (9 cm water), supple Respiratory: diminished breath sounds (at bases/B) Cardiovascular: regular rate and rhythm Gastrointestinal: non-tender, soft Musculoskeletal: muscle tone (normal) Extremities: edema (none) Neurological: other (No focal deficits) Results Result Diagram: 07/09/16 2325 07/09/16 2325 Results 24 hrs Laboratory Tests Test 07/10/16 15:21 07/10/16 18:25 07/11/16 00:47 07/11/16 05:40 Bedside Glucose 171 Creatine Kinase 36 59 33 Creatine Kinase Index 2.8 1.2 2.2 Creatinine Kinase MB (Mass) 1.00 0.73 0.73 Troponin I 0.013 0.024 0.013 Cholesterol Level 211 H Cholesterol/HDL Ratio 6.5 HDL Cholesterol 32 LDL Cholesterol, Calculated 127 Triglycerides Level 262 H Test 07/11/16 07:51 Bedside Glucose 144 Medications Medications Current Medications Acetaminophen (Tylenol Tab) 500 mg Q6 PRN PO PAIN; Start 07/10/16 at 10:30 Alprazolam (Xanax) 0.5 mg Q8 PO Last administered on 07/11/16 06:08; Admin Dose 0.5 MG; Start 07/10/16 at 14:00 Amlodipine Besylate (Norvasc) 5 mg DAILY PO Last administered on 07/10/16 13:00 ; Admin Dose 5 MG; Start 07/10/16 at 12:00 Aspirin (Halfprin) 81 mg DAILY PO Last administered on 07/11/16 09:07; Admin Dose 81 MG; Start 07/10/16 at 12:00 Atorvastatin Calcium (Lipitor) 40 mg HS PO Last administered on 07/10/16 20:44 ; Admin Dose 40 MG; Start 07/10/16 at 21:00 Baclofen (Lioresal) 10 mg BID PO Last administered on 07/11/16 09:09; Admin Dose 10 MG; Start 07/10/16 at 21:00 Carvedilol (Coreg) 12.5 mg BID PO Last administered on 07/11/16 09:07; Admin Dose 12.5 MG; Start 07/10/16 at 12:00 Clopidogrel Bisulfate (plaVIX) 75 mg DAILY PO Last administered on 07/11/16 09: 09; Admin Dose 75 MG; Start 07/10/16 at 12:00 Cyanocobalamin (Vitamin B12) 1,000 mcg DAILY PO Last administered on 07/11/16 09:10; Admin Dose 1,000 MCG; Start 07/11/16 at 09:00 Docusate Sodium (Colace) 100 mg TID PO Last administered on 07/11/16 09:04; Admin Dose 100 MG; Start 07/10/16 at 13:00 Furosemide (Lasix) 40 mg DAILY PO Last administered on 07/10/16 13:00; Admin Dose 40 MG; Start 07/10/16 at 12:00 Gabapentin (Neurontin) 300 mg BID PO Last administered on 07/10/16 13:00; Admin Dose 300 MG; Start 07/10/16 at 12:00 Glimepiride (Amaryl) 1 mg DAILY PO Last administered on 07/11/16 09:04; Admin Dose 1 MG; Start 07/11/16 at 09:00 Ibuprofen (Motrin) 800 mg BID PO Last administered on 07/10/16 13:00; Admin Dose 800 MG; Start 07/10/16 at 12:00 Insulin Human Isoph/Insulin Regular (Humulin 70/30) 15 units AM SC Last administered on 07/11/16 09:37; Admin Dose 15 UNITS; Start 07/11/16 at 09:00 Losartan Potassium (Cozaar) 50 mg Q12 PO Last administered on 07/11/16 09:07; Admin Dose 50 MG; Start 07/10/16 at 12:00 Meclizine HCl (Antivert) 25 mg TID PRN PO VERTIGO; Start 07/10/16 at 10:30 Morphine Sulfate (Ms Contin (Er)) 15 mg Q6 PO Last administered on 07/11/16 06: 08; Admin Dose 15 MG; Start 07/10/16 at 12:00 Nitroglycerin (Nitroglycerin (Sl Tab) 0.4 Mg) 1 tab Q5M PRN SL CHEST PAIN Last administered on 07/11/16 10:45; Admin Dose 1 TAB; Start 07/10/16 at 10:30 Pantoprazole (Protonix Tab) 40 mg DAILY@06 PO Last administered on 07/11/16 06: 08; Admin Dose 40 MG; Start 07/11/16 at 06:00 Phenytoin (Dilantin) 300 mg HS PO ; Start 07/10/16 at 21:00 Ranolazine (Ranexa) 1,000 mg Q12 PO Last administered on 07/11/16 09:10; Admin Dose 1,000 MG; Start 07/10/16 at 21:00 Zolpidem Tartrate (Ambien) 10 mg HS PRN PO INSOMNIA Last administered on 02:32; Admin Dose 10 MG; Start 07/10/16 at 10:30 Hydromorphone HCl (Dilaudid) 0.5 mg Q4 PRN IV SEVERE PAIN LEVEL 7-10 Last administered on 07/11/16 10:37; Admin Dose 0.5 MG; Start 07/10/16 at 14:30 Isosorbide Mononitrate (Imdur) 90 mg DAILY PO Last administered on 07/11/16 09: 08; Admin Dose 90 MG; Start 07/11/16 at 09:00 Miscellaneous Information 1 ea NOTE XX ; Start 07/10/16 at 18:00 Glucose (Glutose) 15 gm Q15M PRN PO DECREASED GLUCOSE; Start 07/10/16 at 18:00 Glucose (Glutose) 22.5 gm Q15M PRN PO DECREASED GLUCOSE; Start 07/10/16 at 18:00 Dextrose (D50w Syringe) 25 ml Q15M PRN IV DECREASED GLUCOSE; Start 07/10/16 at 18:00 Dextrose (D50w Syringe) 50 ml Q15M PRN IV DECREASED GLUCOSE; Start 07/10/16 at 18:00 Glucagon (Glucagen) 1 mg Q15M PRN IM DECREASED GLUCOSE; Start 07/10/16 at 18:00 Glucose (Glutose) 15 gm Q15M PRN BUCCAL DECREASED GLUCOSE; Start 07/10/16 at 18: 00 Ondansetron HCl (Zofran Inj) 4 mg Q6H PRN IV NAUSEA AND/OR VOMITING; Start 07/10 at 18:30 Acetaminophen (Tylenol Tab) 650 mg Q6H PRN PO PAIN LEVEL 1-3 OR FEVER; Start at 18:30 Acetaminophen (Tylenol Supp) 650 mg Q6H PRN [place] PAIN LEVEL 1-3 OR FEVER; Start 07/10/16 at 18:30 Acetaminophen/ Hydrocodone Bitart ([place] (5/325)) 1 tab Q6H PRN PO MODERATE PAIN LEVEL 4-6; Start 07/10/16 at 18:30 Docusate Sodium (Colace) 100 mg Q12H PRN PO CONSTIPATION; Start 07/10/16 at 18: 30 Magnesium Hydroxide (Milk Of Mag) 30 ml DAILY PRN PO CONSTIPATION; Start at 18:30 Bisacodyl (Dulcolax) 5 mg DAILY PRN PO CONSTIPATION; Start 07/10/16 at 18:30 Sodium Biphosphate/ Sodium Phosphate (Fleet Enema) 133 ml DAILY PRN [place] CONSTIPATION; Start 07/10/16 at 18:30 Zolpidem Tartrate (Ambien) 5 mg QHS PRN PO SLEEP; Start 07/10/16 at 18:30 Famotidine (Pepcid) 20 mg Q12 PO Last administered on 07/11/16 09:09; Admin Dose 20 MG; Start 07/10/16 at 21:00 Enoxaparin Sodium (Lovenox) 40 mg DAILY SC Last administered on 07/11/16 09:19 ; Admin Dose 40 MG; Start 07/11/16 at 09:00 Miscellaneous Information (Flu Vaccine Previously Dispensed) FLU VACCINE PREVIOU... NOTE PRN XX NOTE; Start 07/10/16 at 19:30 NICHOL ACOSTA Jul 11, 2016 11:44
--- NOTE | 2016-07-11 11:49 | RADRPT ---
Vent Rate: 64 bpm RR Interval: [address] Interval: 162 msec QRS Duration: 86 msec QT Interval: 448 msec QTC Interval: 462 msec P-R-T [place]: 27 - -51 - 120 degrees Normal sinus rhythm Left axis deviation Anteroseptal infarct , age undetermined Abnormal ECG Electronically Signed By: Michael Cassidy [id number]
[2016-07-11] MEDS ORDERED: DIAZEPAM 5 MG TAB PO SCH (12:00)
[2016-07-11] MEDS ORDERED: DIPHENHYDRAMINE 50 MG CAP PO SCH (12:00)
--- NOTE | 2016-07-11 17:48 | PN ---
Date/Time of Note Date/Time of Note DATE: 07/11/16 TIME: 17:47 Assessment/Plan VTE Prophylaxis VTE Prophylaxis Intervention: other Lines/Catheters IV Catheter Type (from Nrsg): [place] Assessment/Plan Chief Complaint/Hosp Course IMPRESSION: 1. Chest pain. 2. Rule out myocardial infarction. 3. Hypertension. 4. Diabetes mellitus. 5. The patient has a pacemaker placement. 6. History of coronary artery disease. 7. History of congestive heart failure. 8. History of coronary artery bypass graft. 9. History of anxiety. 10. History of insomnia. 11. History of chronic pain. plan cath per cardio Problems: Subjective 24 Hr Interval Summary Respiratory: no complaints Cardiovascular: no complaints Gastrointestinal: no complaints Exam/Review of Systems Vital Signs Vitals Vital Signs Date Time Temp Pulse Resp B/P Pulse Ox O2 Delivery O2 Flow Rate FiO2 07/11/16 16:14 64 07/11/16 15:50 97.8 20 126/69 98 07/11/16 09:24 Nasal Cannula 2.0 Intake and Output 07/10/16 07/10/16 07/11/16 15:00 23:00 07:00 Intake Total 400 ml 500 ml Balance 400 ml 500 ml Exam Neck: supple Respiratory: clear to auscultation Cardiovascular: regular rate and rhythm Gastrointestinal: soft Musculoskeletal: nl extremities to inspection Extremities: normal pulses Results Result Diagram: 07/09/16232407/09/16 2325 Results 24 hrs Laboratory Tests Test 07/10/16 18:25 07/11/16 00:47 07/11/16 05:40 07/11/16 07:51 Creatine Kinase 36 59 33 Creatine Kinase Index 2.8 1.2 2.2 Creatinine Kinase MB (Mass) 1.00 0.73 0.73 Troponin I 0.013 0.024 0.013 Cholesterol Level 211 H Cholesterol/HDL Ratio 6.5 HDL Cholesterol 32 LDL Cholesterol, Calculated 127 Triglycerides Level 262 H Bedside Glucose 144 Medications Medications Current Medications Acetaminophen (Tylenol Tab) 500 mg Q6 PRN PO PAIN; Start 07/10/16 at 10:30 Alprazolam (Xanax) 0.5 mg Q8 PO Last administered on 07/11/16 13:52; Admin Dose 0.5 MG; Start 07/10/16 at 14:00 Amlodipine Besylate (Norvasc) 5 mg DAILY PO Last administered on 07/10/16 13:00 ; Admin Dose 5 MG; Start 07/10/16 at 12:00 Aspirin (Halfprin) 81 mg DAILY PO Last administered on 07/11/16 09:07; Admin Dose 81 MG; Start 07/10/16 at 12:00 Atorvastatin Calcium (Lipitor) 40 mg HS PO Last administered on 07/10/16 20:44 ; Admin Dose 40 MG; Start 07/10/16 at 21:00 Baclofen (Lioresal) 10 mg BID PO Last administered on 07/11/16 09:09; Admin Dose 10 MG; Start 07/10/16 at 21:00 Carvedilol (Coreg) 12.5 mg BID PO Last administered on 07/11/16 09:07; Admin Dose 12.5 MG; Start 07/10/16 at 12:00 Clopidogrel Bisulfate (plaVIX) 75 mg DAILY PO Last administered on 07/11/16 09: 09; Admin Dose 75 MG; Start 07/10/16 at 12:00 Cyanocobalamin (Vitamin B12) 1,000 mcg DAILY PO Last administered on 07/11/16 09:10; Admin Dose 1,000 MCG; Start 07/11/16 at 09:00 Docusate Sodium (Colace) 100 mg TID PO Last administered on 07/11/16 13:52; Admin Dose 100 MG; Start 07/10/16 at 13:00 Furosemide (Lasix) 40 mg DAILY PO Last administered on 07/10/16 13:00; Admin Dose 40 MG; Start 07/10/16 at 12:00 Gabapentin (Neurontin) 300 mg BID PO Last administered on 07/10/16 13:00; Admin Dose 300 MG; Start 07/10/16 at 12:00 Glimepiride (Amaryl) 1 mg DAILY PO Last administered on 07/11/16 09:04; Admin Dose 1 MG; Start 07/11/16 at 09:00 Ibuprofen (Motrin) 800 mg BID PO Last administered on 07/10/16 13:00; Admin Dose 800 MG; Start 07/10/16 at 12:00 Insulin Human Isoph/Insulin Regular (Humulin 70/30) 15 units AM SC Last administered on 07/11/16 09:37; Admin Dose 15 UNITS; Start 07/11/16 at 09:00 Losartan Potassium (Cozaar) 50 mg Q12 PO Last administered on 07/11/16 09:07; Admin Dose 50 MG; Start 07/10/16 at 12:00 Meclizine HCl (Antivert) 25 mg TID PRN PO VERTIGO; Start 07/10/16 at 10:30 Morphine Sulfate (Ms Contin (Er)) 15 mg Q6 PO Last administered on 07/11/16 11: 48; Admin Dose 15 MG; Start 07/10/16 at 12:00 Nitroglycerin (Nitroglycerin (Sl Tab) 0.4 Mg) 1 tab Q5M PRN SL CHEST PAIN Last administered on 07/11/16 10:45; Admin Dose 1 TAB; Start 07/10/16 at 10:30 Pantoprazole (Protonix Tab) 40 mg DAILY@06 PO Last administered on 07/11/16 06: 08; Admin Dose 40 MG; Start 07/11/16 at 06:00 Phenytoin (Dilantin) 300 mg HS PO ; Start 07/10/16 at 21:00 Ranolazine (Ranexa) 1,000 mg Q12 PO Last administered on 07/11/16 09:10; Admin Dose 1,000 MG; Start 07/10/16 at 21:00 Zolpidem Tartrate (Ambien) 10 mg HS PRN PO INSOMNIA Last administered on 02:32; Admin Dose 10 MG; Start 07/10/16 at 10:30 Hydromorphone HCl (Dilaudid) 0.5 mg Q4 PRN IV SEVERE PAIN LEVEL 7-10 Last administered on 07/11/16 14:14; Admin Dose 0.5 MG; Start 07/10/16 at 14:30 Isosorbide Mononitrate (Imdur) 90 mg DAILY PO Last administered on 07/11/16 09: 08; Admin Dose 90 MG; Start 07/11/16 at 09:00 Miscellaneous Information 1 ea NOTE XX ; Start 07/10/16 at 18:00 Glucose (Glutose) 15 gm Q15M PRN PO DECREASED GLUCOSE; Start 07/10/16 at 18:00 Glucose (Glutose) 22.5 gm Q15M PRN PO DECREASED GLUCOSE; Start 07/10/16 at 18:00 Dextrose (D50w Syringe) 25 ml Q15M PRN IV DECREASED GLUCOSE; Start 07/10/16 at 18:00 Dextrose (D50w Syringe) 50 ml Q15M PRN IV DECREASED GLUCOSE; Start 07/10/16 at 18:00 Glucagon (Glucagen) 1 mg Q15M PRN IM DECREASED GLUCOSE; Start 07/10/16 at 18:00 Glucose (Glutose) 15 gm Q15M PRN BUCCAL DECREASED GLUCOSE; Start 07/10/16 at 18: 00 Ondansetron HCl (Zofran Inj) 4 mg Q6H PRN IV NAUSEA AND/OR VOMITING; Start 07/10 at 18:30 Acetaminophen (Tylenol Tab) 650 mg Q6H PRN PO PAIN LEVEL 1-3 OR FEVER; Start at 18:30 Acetaminophen (Tylenol Supp) 650 mg Q6H PRN [place] PAIN LEVEL 1-3 OR FEVER; Start 07/10/16 at 18:30 Acetaminophen/ Hydrocodone Bitart ([place] (5/325)) 1 tab Q6H PRN PO MODERATE PAIN LEVEL 4-6; Start 07/10/16 at 18:30 Docusate Sodium (Colace) 100 mg Q12H PRN PO CONSTIPATION; Start 07/10/16 at 18: 30 Magnesium Hydroxide (Milk Of Mag) 30 ml DAILY PRN PO CONSTIPATION; Start at 18:30 Bisacodyl (Dulcolax) 5 mg DAILY PRN PO CONSTIPATION; Start 07/10/16 at 18:30 Sodium Biphosphate/ Sodium Phosphate (Fleet Enema) 133 ml DAILY PRN [place] CONSTIPATION; Start 07/10/16 at 18:30 Zolpidem Tartrate (Ambien) 5 mg QHS PRN PO SLEEP; Start 07/10/16 at 18:30 Famotidine (Pepcid) 20 mg Q12 PO Last administered on 07/11/16 09:09; Admin Dose 20 MG; Start 07/10/16 at 21:00 Enoxaparin Sodium (Lovenox) 40 mg DAILY SC Last administered on 07/11/16 09:19 ; Admin Dose 40 MG; Start 07/11/16 at 09:00 Miscellaneous Information (Flu Vaccine Previously Dispensed) FLU VACCINE PREVIOU... NOTE PRN XX NOTE; Start 07/10/16 at 19:30 Diazepam (Valium) 5 mg OC PO ; Start 07/12/16 at 12:00; Stop 07/12/16 at 20:00 Diphenhydramine HCl (Benadryl) 50 mg OC PO ; Start 07/12/16 at 12:00; Stop 07/12 at 20:00 CARLOS MARTINEZ MD Jul 11, 2016 17:48
[2016-07-11] MEDS: ATORVASTATIN 40 MG TAB PO SCH (20:18)
[2016-07-11] MEDS: PHENYTOIN 100 MG CAP PO SCH (20:21)
[2016-07-11] MEDS: IBUPROFEN 800 MG TAB PO SCH (20:24)
[2016-07-11] MEDS: GABAPENTIN 300 MG CAP PO SCH (20:24)
[2016-07-12] VITALS (25 sets, daily range): BP systolic 104–146; BP diastolic 57–79; PULSE 60–71; RESP 16–21
[2016-07-12] MEDS: morphine (ER) 15 MG TAB PO SCH ×5 (00:53→21:53)
[2016-07-12] MEDS ORDERED: DIAZEPAM 5 MG TAB PO SCH ×2 (06:00→10:51)
[2016-07-12] MEDS: ALPRAZOLAM 0.5 MG TAB PO SCH ×3 (06:08→21:54)
[2016-07-12] MEDS: PANTOPRAZOLE (EC) 40 MG TAB PO SCH (06:14)
[2016-07-12 06:15] LABS: ADD SCAN DIFF NO; BASOPHILS % 0.3 % (0.0-2.0); EOSINOPHILS # 0.2 10^3/ul (0.0-0.5); HEMATOCRIT 35.9 % (42.0-52.0); HEMOGLOBIN 11.9 g/dl (14.0-18.0); LYMPHOCYTES # 1.7 10^3/ul (0.8-2.9); LYMPHOCYTES % 16.6 % (15.0-51.0); MEAN CORPUSCULAR HEMOGLOBIN 29.9 pg (29.0-33.0); MEAN CORPUSCULAR HGB CONC 33.1 g/dl (32.0-37.0); MEAN CORPUSCULAR VOLUME 90.2 fl (82.0-101.0); MEAN PLATELET VOLUME 10.4 fl (7.4-10.4); MONOCYTE # 0.7 10^3/ul (0.3-0.9); MONOCYTES % 6.4 % (0.0-11.0); NEUTROPHIL # 7.6 10^3/ul (1.6-7.5); NEUTROPHILS % 74.3 % (39.0-77.0); PLATELET COUNT 170 10^3/UL (140-415); RED BLOOD COUNT 3.98 10^6/ul (4.70-6.10); RED CELL DISTRIBUTION WIDTH 13.5 % (11.5-14.5); WHITE BLOOD COUNT 10.3 10^3/ul (4.8-10.8)
[2016-07-12 06:26] LABS: INR 1.02; PROTIME 13.4 Sec (12.2-14.2)
[2016-07-12 06:49] LABS: POTASSIUM 3.9 mmol/L (3.5-5.1)
[2016-07-12 06:52] LABS: CREATININE 0.85 mg/dl (0.61-1.24)
[2016-07-12 06:53] LABS: CALCIUM 9.1 mg/dl (8.4-10.2)
[2016-07-12] MEDS: GLIMEPIRIDE 2 MG TAB PO SCH (08:25)
[2016-07-12] MEDS: metFORMIN 500 MG TAB PO SCH ×2 (08:25→17:55)
[2016-07-12] MEDS: DOCUSATE SODIUM 100 MG CAP PO SCH ×3 (08:25→21:54)
[2016-07-12] MEDS: ASPIRIN (EC) 81 MG TAB PO SCH (08:26)
[2016-07-12] MEDS: BACLOFEN 10 MG TAB PO SCH ×2 (08:27→21:54)
[2016-07-12] MEDS: FUROSEMIDE 40 MG TAB PO SCH (08:27)
[2016-07-12] MEDS: GABAPENTIN 300 MG CAP PO SCH ×2 (08:27→21:53)
[2016-07-12] MEDS: CLOPIDOGREL 75 MG TAB PO SCH (08:28)
[2016-07-12] MEDS: FAMOTIDINE 20 MG TAB PO SCH ×2 (08:28→21:54)
[2016-07-12] MEDS: CYANOCOBALAMIN 500 MCG TAB PO SCH (08:28)
[2016-07-12] MEDS: ENOXAPARIN 40 MG/0.4 ML SYG SC SCH (08:31)
[2016-07-12] MEDS: HUMULIN 70/30 3ML VIAL SC SCH (08:32)
[2016-07-12] MEDS: LOSARTAN 50 MG TAB PO SCH ×2 (08:36→21:54)
[2016-07-12] MEDS: IBUPROFEN 800 MG TAB PO SCH ×2 (08:37→21:55)
[2016-07-12] MEDS: ISOSORBIDE MONONITRATE(SR)30 MG TAB PO SCH (08:37)
[2016-07-12] MEDS: RANOLAZINE (SR) 500 MG TAB PO SCH ×2 (08:37→21:55)
[2016-07-12] MEDS: AMLODIPINE 5 MG TAB PO SCH (08:41)
--- NOTE | 2016-07-12 09:48 | RADRPT ---
PROCEDURE: XR Chest 1 view. CLINICAL INDICATION: Shortness of breath, congestive heart failure TECHNIQUE: AP views of the chest were obtained. COMPARISON: July 09, 2016 FINDINGS: The heart is large. Calcified atherosclerosis is noted in the aorta. Left-sided dual chamber pacema ker/defibrillator has its leads over the heart and appears stable. Median sternotomy wires overlie the heart. Elevation right hemidiaphragm is identified. Mild central pulmonary vascular congestion and interstitial prominence is seen in both lungs. Retrocardiac opacity is noted. The osseous stru ctures appear grossly intact. IMPRESSION: Cardiomegaly with calcified atherosclerosis in the aorta. Mild central pulmonary vascular congestion and interstitial prominence in both lungs. Retrocardiac opacity that may reflect left lower lobe atelectasis or infiltrate combined with small pleural effusion. RPTAT: AA .Sunil Severino MD, MD Date Time Electronically viewed and signed by .Sunil Severino MD, MD on 07/12/2016 09:48 .P/
[2016-07-12] MEDS ORDERED: DIPHENHYDRAMINE 50 MG CAP PO SCH (10:52)
[2016-07-12] MEDS ORDERED: LIDOCAINE 1% (MDV) 20 ML INJ ONE ×2 (11:06→11:32)
[2016-07-12] MEDS ORDERED: IODIXANOL LOCM 100 ML BTL ONE ×2 (11:06→11:55)
[2016-07-12] MEDS ORDERED: FENTAnyl 50 MCG/ML VIAL ONE (11:07)
[2016-07-12] MEDS ORDERED: MIDAZOLAM 1 MG/ML 2 ML INJ ONE (11:07)
[2016-07-12] MEDS ORDERED: SOD CHLORIDE 0.9% 1,000 ML IV SCH (12:23)
--- NOTE | 2016-07-12 12:23 | CONS ---
Date/Time of Note Date/Time of Note DATE: 07/12/16 TIME: 12:19 Assessment/Plan Assessment/Plan Chief Complaint/Hosp Course IMPRESSION: 1. Congestive heart failure exacerbation, systolic, acute on chronic. 2. Angina refractory to medical therapy.-negative troponin x3. Now s/p LHC revealing patent KNOTT with all other grafts occluded and patent stents in LCX/ Moderately elevated Right heart filling pressures with low NL cardiac output EF 25% 3. History of coronary artery disease, status post prior percutaneous transluminal coronary angioplasty and stent placement. 4. History of coronary artery bypass grafting with patent KNOTT at last catheterization and other grafts occluded. 5. Increased BNP consistent with the patient's congestive heart failure. 6. Hypertension, labile. 7. Anemia, mild. 8. Dyslipidemia. 9. Diabetes mellitus. 10. Possible seizure disorder, on medications. Rec: -Tele -Continue current BB/ranexa/imdur/norvasc anti-anginal medications -Continue asa/plavix -Continue afterload reduction with losartan -Continue lasix diuresis Problems: Consultation Date/Type/Reason Admit Date/Time Jul 10, 2016 at 01:07 Initial Consult Date 07/10/2016 Type of Consultation: Cardiology Reason for Consultation angina/CHF/cardiomyopathy Referring Provider: CARLOS MARTINEZ MD Exam/Review of Systems Vital Signs Vitals Vital Signs Date Time Temp Pulse Resp B/P Pulse Ox O2 Delivery O2 Flow Rate FiO2 07/12/16 08:46 60 07/12/16 07:52 98.0 18 140/68 98 07/12/16 07:36 Nasal Cannula 2.0 Intake and Output 07/11/16 07/11/16 07/12/16 15:00 23:00 07:00 Intake Total 720 ml 600 ml Balance 720 ml 600 ml Exam Review of Systems: CONSTITUTIONAL: No fevers, chills. PULMONARY: ongoing sob CARDIOVASCULAR: ongoing chest pain/palpitations GASTROINTESTINAL: No nausea/vomiting. GENITOURINARY: No hematuria/dysuria. MUSCULOSKELETAL: No myagias/arthalgias. PSYCHIATRIC: The patient denies depression. NEUROLOGIC: No weakness Constitutional: alert Psych: no complaints Head: normocephalic ENMT: mucosa pink and moist Neck: jvd (9 cm water), supple Respiratory: diminished breath sounds (at bases/B) Cardiovascular: regular rate and rhythm Gastrointestinal: non-tender, soft Musculoskeletal: muscle tone (normal) Extremities: edema (none) Neurological: other (No focal deficits) Results Result Diagram: 07/12/16 0540 07/12/16 0540 Results 24 hrs Laboratory Tests Test 07/12/16 05:40 Anion Gap 17 H Basophils # 0.0 Basophils % 0.3 Blood Urea Nitrogen 22 H Calcium Level 9.1 Carbon Dioxide Level 23 Chloride Level 103 Creatinine 0.85 Eosinophils # 0.2 Eosinophils % 2.0 Glucose Level 113 Hematocrit 35.9 L Hemoglobin 11.9 L INR International Normalized Ratio 1.02 Lymphocytes # 1.7 Lymphocytes % 16.6 Mean Corpuscular Hemoglobin 29.9 Mean Corpuscular Hemoglobin Concent 33.1 Mean Corpuscular Volume 90.2 Mean Platelet Volume 10.4 Monocytes # 0.7 Monocytes % 6.4 Neutrophils # 7.6 H Neutrophils % 74.3 Nucleated Red Blood Cells # 0.0 Nucleated Red Blood Cells % 0.0 Platelet Count 170 Potassium Level 3.9 Prothrombin Time 13.4 Prothrombin Time Ratio 1.0 Red Blood Count 3.98 L Red Cell Distribution Width 13.5 Sodium Level 139 White Blood Count 10.3 Medications Medications Current Medications Acetaminophen (Tylenol Tab) 500 mg Q6 PRN PO PAIN; Start 07/10/16 at 10:30 Alprazolam (Xanax) 0.5 mg Q8 PO Last administered on 07/12/16 06:08; Admin Dose 0.5 MG; Start 07/10/16 at 14:00 Amlodipine Besylate (Norvasc) 5 mg DAILY PO Last administered on 07/12/16 08: 41; Admin Dose 5 MG; Start 07/10/16 at 12:00 Aspirin (Halfprin) 81 mg DAILY PO Last administered on 07/12/16 08:26; Admin Dose 81 MG; Start 07/10/16 at 12:00 Atorvastatin Calcium (Lipitor) 40 mg HS PO Last administered on 07/11/16 20:18 ; Admin Dose 40 MG; Start 07/10/16 at 21:00 Baclofen (Lioresal) 10 mg BID PO Last administered on 07/12/16 08:27; Admin Dose 10 MG; Start 07/10/16 at 21:00 Carvedilol (Coreg) 12.5 mg BID PO Last administered on 07/12/16 08:26; Admin Dose 12.5 MG; Start 07/10/16 at 12:00 Clopidogrel Bisulfate (plaVIX) 75 mg DAILY PO Last administered on 07/12/16 08 :28; Admin Dose 75 MG; Start 07/10/16 at 12:00 Cyanocobalamin (Vitamin B12) 1,000 mcg DAILY PO Last administered on 07/12/16 08:28; Admin Dose 1,000 MCG; Start 07/11/16 at 09:00 Docusate Sodium (Colace) 100 mg TID PO Last administered on 07/12/16 08:25; Admin Dose 100 MG; Start 07/10/16 at 13:00 Furosemide (Lasix) 40 mg DAILY PO Last administered on 07/12/16 08:27; Admin Dose 40 MG; Start 07/10/16 at 12:00 Gabapentin (Neurontin) 300 mg BID PO Last administered on 07/12/16 08:27; Admin Dose 300 MG; Start 07/10/16 at 12:00 Glimepiride (Amaryl) 1 mg DAILY PO Last administered on 07/12/16 08:25; Admin Dose 1 MG; Start 07/11/16 at 09:00 Ibuprofen (Motrin) 800 mg BID PO Last administered on 07/12/16 08:37; Admin Dose 800 MG; Start 07/10/16 at 12:00 Insulin Human Isoph/Insulin Regular (Humulin 70/30) 15 units AM SC Last administered on 07/12/16 08:32; Admin Dose 15 UNITS; Start 07/11/16 at 09:00 Losartan Potassium (Cozaar) 50 mg Q12 PO Last administered on 07/12/16 08:36; Admin Dose 50 MG; Start 07/10/16 at 12:00 Meclizine HCl (Antivert) 25 mg TID PRN PO VERTIGO; Start 07/10/16 at 10:30 Morphine Sulfate (Ms Contin (Er)) 15 mg Q6 PO Last administered on 07/12/16 00 :53; Admin Dose 15 MG; Start 07/10/16 at 12:00 Nitroglycerin (Nitroglycerin (Sl Tab) 0.4 Mg) 1 tab Q5M PRN SL CHEST PAIN Last administered on 07/11/16 10:45; Admin Dose 1 TAB; Start 07/10/16 at 10:30 Pantoprazole (Protonix Tab) 40 mg DAILY@06 PO Last administered on 07/12/16 06 :14; Admin Dose 40 MG; Start 07/11/16 at 06:00 Phenytoin (Dilantin) 300 mg HS PO ; Start 07/10/16 at 21:00 Ranolazine (Ranexa) 1,000 mg Q12 PO Last administered on 07/12/16 08:37; Admin Dose 1,000 MG; Start 07/10/16 at 21:00 Zolpidem Tartrate (Ambien) 10 mg HS PRN PO INSOMNIA Last administered on 02:32; Admin Dose 10 MG; Start 07/10/16 at 10:30 Hydromorphone HCl (Dilaudid) 0.5 mg Q4 PRN IV SEVERE PAIN LEVEL 7-10 Last administered on 07/11/16 19:53; Admin Dose 0.5 MG; Start 07/10/16 at 14:30 Isosorbide Mononitrate (Imdur) 90 mg DAILY PO Last administered on 07/12/16 08 :37; Admin Dose 90 MG; Start 07/11/16 at 09:00 Miscellaneous Information 1 ea NOTE XX ; Start 07/10/16 at 18:00 Glucose (Glutose) 15 gm Q15M PRN PO DECREASED GLUCOSE; Start 07/10/16 at 18:00 Glucose (Glutose) 22.5 gm Q15M PRN PO DECREASED GLUCOSE; Start 07/10/16 at 18:00 Dextrose (D50w Syringe) 25 ml Q15M PRN IV DECREASED GLUCOSE; Start 07/10/16 at 18:00 Dextrose (D50w Syringe) 50 ml Q15M PRN IV DECREASED GLUCOSE; Start 07/10/16 at 18:00 Glucagon (Glucagen) 1 mg Q15M PRN IM DECREASED GLUCOSE; Start 07/10/16 at 18:00 Glucose (Glutose) 15 gm Q15M PRN BUCCAL DECREASED GLUCOSE; Start 07/10/16 at 18: 00 Ondansetron HCl (Zofran Inj) 4 mg Q6H PRN IV NAUSEA AND/OR VOMITING; Start 07/10 at 18:30 Acetaminophen (Tylenol Tab) 650 mg Q6H PRN PO PAIN LEVEL 1-3 OR FEVER; Start at 18:30 Acetaminophen (Tylenol Supp) 650 mg Q6H PRN [place] PAIN LEVEL 1-3 OR FEVER; Start 07/10/16 at 18:30 Acetaminophen/ Hydrocodone Bitart ([place] (5/325)) 1 tab Q6H PRN PO MODERATE PAIN LEVEL 4-6; Start 07/10/16 at 18:30 Docusate Sodium (Colace) 100 mg Q12H PRN PO CONSTIPATION; Start 07/10/16 at 18: 30 Magnesium Hydroxide (Milk Of Mag) 30 ml DAILY PRN PO CONSTIPATION; Start at 18:30 Bisacodyl (Dulcolax) 5 mg DAILY PRN PO CONSTIPATION; Start 07/10/16 at 18:30 Sodium Biphosphate/ Sodium Phosphate (Fleet Enema) 133 ml DAILY PRN [place] CONSTIPATION; Start 07/10/16 at 18:30 Zolpidem Tartrate (Ambien) 5 mg QHS PRN PO SLEEP; Start 07/10/16 at 18:30 Famotidine (Pepcid) 20 mg Q12 PO Last administered on 07/12/16 08:28; Admin Dose 20 MG; Start 07/10/16 at 21:00 Enoxaparin Sodium (Lovenox) 40 mg DAILY SC Last administered on 07/12/16 08:31 ; Admin Dose 40 MG; Start 07/11/16 at 09:00 Miscellaneous Information (Flu Vaccine Previously Dispensed) FLU VACCINE PREVIOU... NOTE PRN XX NOTE; Start 07/10/16 at 19:30 Diazepam (Valium) 5 mg OC PO Last administered on 07/12/16 11:01; Admin Dose 5 MG; Start 07/12/16 at 10:51; Stop 07/12/16 at 15:00 Diphenhydramine HCl (Benadryl) 50 mg OC PO Last administered on 07/12/16 11:01 ; Admin Dose 50 MG; Start 07/12/16 at 10:52; Stop 07/12/16 at 15:00 NICHOL ACOSTA Jul 12, 2016 12:23
[2016-07-12] MEDS ORDERED: ACETAMINOPHEN 325 MG TAB PO PRN (12:30)
[2016-07-12] MEDS ORDERED: ONDANSETRON 4 MG INJ IV PRN (12:30)
[2016-07-12] MEDS ORDERED: AL HYDROX/MG HYDROX/SIMETH 30 ML CUP PO PRN (12:30)
--- NOTE | 2016-07-12 13:46 | CARRPT ---
DATE OF PROCEDURE: 07/12/2016 TYPE OF PROCEDURE: 1. Left heart catheterization. 2. Coronary angiography. 3. Left ventriculogram. 4. Aortic root angiography. 5. Bypass graft angiography including KNOTT arterial graft. 6. Right heart catheterization. ATTENDING PHYSICIAN: Nichol Olsen MD REFERRING PHYSICIAN: Dr. Shashank Martinez. INDICATION: Refractory angina. Pretransplant evaluation TYPE OF ANESTHESIA: Conscious and local. BRIEF HISTORY: Mr. Louis is a 56-year-old male with a history of hypertension, dyslipidemia, cor onary artery disease, status post coronary artery bypass graft surgery, prior PTCA and stent placeme nt who presented with refractory angina and is undergoing a transplant evaluation. Patient required right heart catheterization due to refractory angina and will undergo a left heart catheterization at the same time. PROCEDURE: After informed consent was obtained, the patient was brought to the [facility] cardiac catheterization lab where his right groin was prepped and draped in usual sterile f ashion. Lidocaine 2% was infiltrated into the right groin in order to achieve adequate local anesth esia. Using modified Seldinger technique, the femoral vein was cannulated and a 7-Albanian venous sh eath was placed. Subsequently, using modified Seldinger technique, the femoral artery was cannulate d and a 6-Albanian arterial sheath was placed. A 6-Albanian JL4 cardiac catheter was used to cannulate the left main coronary ostium. With contrast injection, multiple views of the left coronary arteria l system were obtained. JL4 was removed over a guidewire and a JR4 was used to cannulate the right coronary arterial ostium with contrast injection. A single view of this occluded vessel was obtaine d. JR4 was then used to cannulate a stump presumed to the circumflex vessel and then used to cannul ate the KNOTT to LAD. After the contrast injection, multiple views of this graft were obtained. JR4 was then used to inject the subclavian and then it was placed and it was removed. Subsequently, at this time, a 6-Albanian pigtail was passed up the aorta into the left ____ where left ventricular end -diastolic pressure was measured. Using a power injector, 20 mL of contrast were injected opacifyin g the left ventricle. Pulled back across the aortic valve replacement, aortic root angiography was undertaken to assess for any further unidentified grafts which were not found with a 40 mL contrast injection and removed. Subsequently, at this time, the patient's catheter was removed and a final a ngiographic image of the right femoral arterial insertion site was then obtained revealing the sheat h to be well placed in the right common femoral artery, but due to very small caliber size vessel, i t was elected to remove the sheath with manual pressure. ____hemostasis was achieved, completing t he procedure. There were no noted complications. FINDINGS: CORONARY ANGIOGRAPHY: The circumflex proximally is a 3 mm vessel and has a patent stent in its prox imal portion and 30% stenosis ____ the stented zone and there is another area of patent stents in th e distal portion of the circumflex. There is approximately a 60% stenosis with good flow and this l paula into an obtuse marginal that has a limb of the patient's previously placed stent graft still pa tent between an obtuse marginal distal a the more proximal branching obtuse marginal finding with go od flow to this vessel. The LAD proximally is a 3 mm vessel and in its mid portion, ____takeoff bec omes 100% occluded in the long stented zone. The right coronary artery proximally is a 3 mm vessel and right after its takeoff is 100% occluded with some faint right to right collateral flow. Additi onally, the right can be seen to come up the left to right collateral flow, recapitulating the dista l right coronary artery bifurcation of the distal branches of the circumflex. BYPASS GRAFT ANGIOGRAPHY: This revealed the patient to have a widely patent KNOTT arterial graft to LAD with the patient's distal LAD does becoming a very diffusely diseased vessel, providing very li ttle distal flow distal to the insertion of the vessel itself. Subclavian angiography showed the pa tient to have a subclavian stenosis approximately 50% but still excellent flow. The patient had a widely patent KNOTT arterial graft to left anterior descending supplying a very sma ll diffusely diseased LAD and a presumed occluded saphenous vein graft supplying the circumflex. No other graft stumps were identified. Left ventriculogram revealed a severely depressed left ventricular ejection fraction of 20% to 25%, with severe diffuse hypokinesis. Left ventricular end diastolic pressure of 31 to 34, no significa nt aortic stenosis by gradient. TOTAL FLUOROSCOPY TIME: 8.6 minutes. TOTAL CONTRAST: 155 mL. IMPRESSION: 1. Multivessel obstructive coronary artery disease involving the 100% occluded LAD, 100% occluded c ircumflex and some obtuse marginal branches of the circumflex that were previously grafted. 2. Patent circumflex stents with a distal intermediate stenosis in the circumflex. 3. Right heart catheterization. The patient's right atrial pressure is 7. A right ventricular pre ssure of 52/1, pulmonary arterial pressure of 53/11, cardiac output of 4.26. Cardiac index of 2.28 , pulmonary capillary wedge pressure of 21. TOTAL FLUORO TIME: 8.6 minutes. TOTAL CONTRAST: 155 mL. IMPRESSION: 1. Multivessel obstructive coronary artery disease involving 100% occlusion of the patient's LAD an d right coronary arteries. 2. Patent circumflex, proximal and mid stents. 3. Patent KNOTT arterial graft to left anterior descending supplying a small diffusely diseased dist al LAD. 4. Presumed occluded saphenous vein graft to circumflex. 5. Moderate subclavian stenosis. 6. Elevated left heart filling pressures. 7. Moderately elevated right heart filling pressures. 8. Low normal cardiac output. RECOMMENDATIONS: In light of procedure and findings at this time would: 1. Continue to maximize medical management. 2. Aggressive risk factor reduction. 3. Patient will be readmitted to telemetry floor for post-catheterization observation and continued management of symptoms with additional antianginal medications with close followup of volume status . 4. Patient will proceed with a heart transplant evaluation, given findings. Dictated By: NICHOL JACKSON/MOISES Conf#: [id number] DID#: [id number] CC: SHASHANK MARTINEZ MD;*End*
--- NOTE | 2016-07-12 16:31 | PN ---
Date/Time of Note Date/Time of Note DATE: 07/12/16 TIME: 16:30 Assessment/Plan VTE Prophylaxis VTE Prophylaxis Intervention: other Lines/Catheters IV [facility] Assessment/Plan Chief Complaint/Hosp Course IMPRESSION: 1. Chest pain. 2. Rule out myocardial infarction. 3. Hypertension. 4. Diabetes mellitus. 5. The patient has a pacemaker placement. 6. History of coronary artery disease. 7. History of congestive heart failure. 8. History of coronary artery bypass graft. 9. History of anxiety. 10. History of insomnia. 11. History of chronic pain. 12 s/p cath plan per cardio Problems: Subjective 24 Hr Interval Summary Cardiovascular: no complaints Gastrointestinal: no complaints Exam/Review of Systems Vital Signs Vitals Vital Signs Date Time Temp Pulse Resp B/P Pulse Ox O2 Delivery O2 Flow Rate FiO2 07/12/16 15:36 60 16 110/61 94 Nasal Cannula 07/12/16 15:26 4.0 07/12/16 07:52 98.0 Intake and Output 07/11/16 07/11/16 07/12/16 15:00 23:00 07:00 Intake Total 720 ml 600 ml Balance 720 ml 600 ml Exam Neck: supple Respiratory: clear to auscultation Cardiovascular: regular rate and rhythm Gastrointestinal: soft Results Result Diagram: 07/12/16 0540 07/12/16 0540 Results 24 hrs Laboratory Tests Test 07/12/16 05:40 07/12/16 15:45 07/12/16 16:03 Anion Gap 17 H Basophils # 0.0 Basophils % 0.3 Blood Urea Nitrogen 22 H Calcium Level 9.1 Carbon Dioxide Level 23 Chloride Level 103 Creatinine 0.85 Eosinophils # 0.2 Eosinophils % 2.0 Glucose Level 113 Hematocrit 35.9 L Hemoglobin 11.9 L INR International Normalized Ratio 1.02 Lymphocytes # 1.7 Lymphocytes % 16.6 Mean Corpuscular Hemoglobin 29.9 Mean Corpuscular Hemoglobin Concent 33.1 Mean Corpuscular Volume 90.2 Mean Platelet Volume 10.4 Monocytes # 0.7 Monocytes % 6.4 Neutrophils # 7.6 H Neutrophils % 74.3 Nucleated Red Blood Cells # 0.0 Nucleated Red Blood Cells % 0.0 Platelet Count 170 Potassium Level 3.9 Prothrombin Time 13.4 Prothrombin Time Ratio 1.0 Red Blood Count 3.98 L Red Cell Distribution Width 13.5 Sodium Level 139 White Blood Count 10.3 Bedside Glucose 50 L 179 Medications Medications Current Medications Acetaminophen (Tylenol Tab) 500 mg Q6 PRN PO PAIN; Start 07/10/16 at 10:30 Alprazolam (Xanax) 0.5 mg Q8 PO Last administered on 07/12/16 06:08; Admin Dose 0.5 MG; Start 07/10/16 at 14:00 Amlodipine Besylate (Norvasc) 5 mg DAILY PO Last administered on 07/12/16 08: 41; Admin Dose 5 MG; Start 07/10/16 at 12:00 Aspirin (Halfprin) 81 mg DAILY PO Last administered on 07/12/16 08:26; Admin Dose 81 MG; Start 07/10/16 at 12:00 Atorvastatin Calcium (Lipitor) 40 mg HS PO Last administered on 07/11/16 20:18 ; Admin Dose 40 MG; Start 07/10/16 at 21:00 Baclofen (Lioresal) 10 mg BID PO Last administered on 07/12/16 08:27; Admin Dose 10 MG; Start 07/10/16 at 21:00 Carvedilol (Coreg) 12.5 mg BID PO Last administered on 07/12/16 08:26; Admin Dose 12.5 MG; Start 07/10/16 at 12:00 Clopidogrel Bisulfate (plaVIX) 75 mg DAILY PO Last administered on 07/12/16 08 :28; Admin Dose 75 MG; Start 07/10/16 at 12:00 Cyanocobalamin (Vitamin B12) 1,000 mcg DAILY PO Last administered on 07/12/16 08:28; Admin Dose 1,000 MCG; Start 07/11/16 at 09:00 Docusate Sodium (Colace) 100 mg TID PO Last administered on 07/12/16 08:25; Admin Dose 100 MG; Start 07/10/16 at 13:00 Furosemide (Lasix) 40 mg DAILY PO Last administered on 07/12/16 08:27; Admin Dose 40 MG; Start 07/10/16 at 12:00 Gabapentin (Neurontin) 300 mg BID PO Last administered on 07/12/16 08:27; Admin Dose 300 MG; Start 07/10/16 at 12:00 Glimepiride (Amaryl) 1 mg DAILY PO Last administered on 07/12/16 08:25; Admin Dose 1 MG; Start 07/11/16 at 09:00 Ibuprofen (Motrin) 800 mg BID PO Last administered on 07/12/16 08:37; Admin Dose 800 MG; Start 07/10/16 at 12:00 Insulin Human Isoph/Insulin Regular (Humulin 70/30) 15 units AM SC Last administered on 07/12/16 08:32; Admin Dose 15 UNITS; Start 07/11/16 at 09:00 Losartan Potassium (Cozaar) 50 mg Q12 PO Last administered on 07/12/16 08:36; Admin Dose 50 MG; Start 07/10/16 at 12:00 Meclizine HCl (Antivert) 25 mg TID PRN PO VERTIGO; Start 07/10/16 at 10:30 Morphine Sulfate (Ms Contin (Er)) 15 mg Q6 PO Last administered on 07/12/16 00 :53; Admin Dose 15 MG; Start 07/10/16 at 12:00 Nitroglycerin (Nitroglycerin (Sl Tab) 0.4 Mg) 1 tab Q5M PRN SL CHEST PAIN Last administered on 07/11/16 10:45; Admin Dose 1 TAB; Start 07/10/16 at 10:30 Pantoprazole (Protonix Tab) 40 mg DAILY@06 PO Last administered on 07/12/16 06 :14; Admin Dose 40 MG; Start 07/11/16 at 06:00 Phenytoin (Dilantin) 300 mg HS PO ; Start 07/10/16 at 21:00 Ranolazine (Ranexa) 1,000 mg Q12 PO Last administered on 07/12/16 08:37; Admin Dose 1,000 MG; Start 07/10/16 at 21:00 Zolpidem Tartrate (Ambien) 10 mg HS PRN PO INSOMNIA Last administered on 02:32; Admin Dose 10 MG; Start 07/10/16 at 10:30 Hydromorphone HCl (Dilaudid) 0.5 mg Q4 PRN IV SEVERE PAIN LEVEL 7-10 Last administered on 07/11/16 19:53; Admin Dose 0.5 MG; Start 07/10/16 at 14:30 Isosorbide Mononitrate (Imdur) 90 mg DAILY PO Last administered on 07/12/16 08 :37; Admin Dose 90 MG; Start 07/11/16 at 09:00 Miscellaneous Information 1 ea NOTE XX ; Start 07/10/16 at 18:00 Glucose (Glutose) 15 gm Q15M PRN PO DECREASED GLUCOSE; Start 07/10/16 at 18:00 Glucose (Glutose) 22.5 gm Q15M PRN PO DECREASED GLUCOSE; Start 07/10/16 at 18:00 Dextrose (D50w Syringe) 25 ml Q15M PRN IV DECREASED GLUCOSE Last administered on 07/12/16 16:01; Admin Dose 25 ML; Start 07/10/16 at 18:00 Dextrose (D50w Syringe) 50 ml Q15M PRN IV DECREASED GLUCOSE; Start 07/10/16 at 18:00 Glucagon (Glucagen) 1 mg Q15M PRN IM DECREASED GLUCOSE; Start 07/10/16 at 18:00 Glucose (Glutose) 15 gm Q15M PRN BUCCAL DECREASED GLUCOSE; Start 07/10/16 at 18: 00 Acetaminophen (Tylenol Tab) 650 mg Q6H PRN PO PAIN LEVEL 1-3 OR FEVER; Start at 18:30 Acetaminophen (Tylenol Supp) 650 mg Q6H PRN [place] PAIN LEVEL 1-3 OR FEVER; Start 07/10/16 at 18:30 Acetaminophen/ Hydrocodone Bitart ([place] (5/325)) 1 tab Q6H PRN PO MODERATE PAIN LEVEL 4-6; Start 07/10/16 at 18:30 Docusate Sodium (Colace) 100 mg Q12H PRN PO CONSTIPATION; Start 07/10/16 at 18: 30 Magnesium Hydroxide (Milk Of Mag) 30 ml DAILY PRN PO CONSTIPATION; Start at 18:30 Bisacodyl (Dulcolax) 5 mg DAILY PRN PO CONSTIPATION; Start 07/10/16 at 18:30 Sodium Biphosphate/ Sodium Phosphate (Fleet Enema) 133 ml DAILY PRN [place] CONSTIPATION; Start 07/10/16 at 18:30 Zolpidem Tartrate (Ambien) 5 mg QHS PRN PO SLEEP; Start 07/10/16 at 18:30 Famotidine (Pepcid) 20 mg Q12 PO Last administered on 07/12/16 08:28; Admin Dose 20 MG; Start 07/10/16 at 21:00 Enoxaparin Sodium (Lovenox) 40 mg DAILY SC Last administered on 07/12/16t 08:31 ; Admin Dose 40 MG; Start 07/11/16 at 09:00 Miscellaneous Information (Flu Vaccine Previously Dispensed) FLU VACCINE PREVIOU... NOTE PRN XX NOTE; Start 07/10/16 at 19:30 Acetaminophen (Tylenol Tab) 650 mg Q4H PRN PO NON-CARDIAC PAIN LEVEL (1-3); Start 07/12/16 at 12:30 Morphine Sulfate (morphine) 2 mg Q2H PRN IV FOR NON CARDIAC PAIN (4-10); Start 07/12/16 at 12:30 Al Hydrox/Mg Hydrox/Simethicone (Mag-Al Plus) 30 ml Q4H PRN PO GASTROINTESTINAL UPSET; Start 07/12/16 at 12:30 Ondansetron HCl 4 mg 4 mg Q4H PRN IV NAUSEA AND/OR VOMITING; Start 07/12/16 at 12:30 Sodium Chloride (NS) 1,000 ml @ 75 mls/hr [id number] IV ; Start 07/12/16 at 12:23 ; Stop 07/12/16 at 17:22 CARLOS MARTINEZ MD Jul 12, 2016 16:31
[2016-07-12] MEDS: ATORVASTATIN 40 MG TAB PO SCH (21:53)
[2016-07-12] MEDS: PHENYTOIN 100 MG CAP PO SCH (21:54)
[2016-07-13] VITALS (14 sets, daily range): BP systolic 96–135; BP diastolic 51–69; PULSE 60–75; RESP 16–20
[2016-07-13] MEDS: morphine (ER) 15 MG TAB PO SCH ×3 (05:27→18:53)
[2016-07-13] MEDS: ALPRAZOLAM 0.5 MG TAB PO SCH ×3 (05:27→22:19)
[2016-07-13] MEDS: PANTOPRAZOLE (EC) 40 MG TAB PO SCH (05:27)
[2016-07-13 06:10] LABS: ADD SCAN DIFF NO
[2016-07-13 06:35] LABS: BASOPHILS % 0.3 % (0.0-2.0); EOSINOPHILS # 0.1 10^3/ul (0.0-0.5); EOSINOPHILS % 0.5 % (0.0-7.0); HEMATOCRIT 37.3 % (42.0-52.0); HEMOGLOBIN 12.4 g/dl (14.0-18.0); LYMPHOCYTES # 1.6 10^3/ul (0.8-2.9); LYMPHOCYTES % 14.7 % (15.0-51.0); MEAN CORPUSCULAR HEMOGLOBIN 29.7 pg (29.0-33.0); MEAN CORPUSCULAR HGB CONC 33.2 g/dl (32.0-37.0); MEAN CORPUSCULAR VOLUME 89.2 fl (82.0-101.0); MEAN PLATELET VOLUME 10.7 fl (7.4-10.4); MONOCYTE # 0.9 10^3/ul (0.3-0.9); NEUTROPHIL # 8.4 10^3/ul (1.6-7.5); NEUTROPHILS % 76.1 % (39.0-77.0); PLATELET COUNT 181 10^3/UL (140-415); RED BLOOD COUNT 4.18 10^6/ul (4.70-6.10); RED CELL DISTRIBUTION WIDTH 13.6 % (11.5-14.5); WHITE BLOOD COUNT 11.1 10^3/ul (4.8-10.8)
[2016-07-13 06:43] LABS: POTASSIUM 4.3 mmol/L (3.5-5.1)
[2016-07-13 06:46] LABS: CREATININE 1.14 mg/dl (0.61-1.24)
[2016-07-13] MEDS: GABAPENTIN 300 MG CAP PO SCH ×2 (08:56→20:51)
[2016-07-13] MEDS: CLOPIDOGREL 75 MG TAB PO SCH (08:56)
[2016-07-13] MEDS: FAMOTIDINE 20 MG TAB PO SCH ×2 (08:57→20:49)
[2016-07-13] MEDS: IBUPROFEN 800 MG TAB PO SCH ×2 (08:57→20:49)
[2016-07-13] MEDS: RANOLAZINE (SR) 500 MG TAB PO SCH ×2 (08:57→20:50)
[2016-07-13] MEDS: metFORMIN 500 MG TAB PO SCH ×2 (08:57→18:52)
[2016-07-13] MEDS: DOCUSATE SODIUM 100 MG CAP PO SCH ×3 (08:57→20:49)
[2016-07-13] MEDS: CYANOCOBALAMIN 500 MCG TAB PO SCH (08:58)
[2016-07-13] MEDS: GLIMEPIRIDE 2 MG TAB PO SCH (08:58)
[2016-07-13] MEDS: ASPIRIN (EC) 81 MG TAB PO SCH (08:59)
[2016-07-13] MEDS: BACLOFEN 10 MG TAB PO SCH ×2 (08:59→20:49)
[2016-07-13] MEDS: ENOXAPARIN 40 MG/0.4 ML SYG SC SCH (09:00)
[2016-07-13] MEDS: HUMULIN 70/30 3ML VIAL SC SCH (09:02)
[2016-07-13] MEDS: AMLODIPINE 5 MG TAB PO SCH (09:03)
[2016-07-13] MEDS: ISOSORBIDE MONONITRATE(SR)30 MG TAB PO SCH (09:03)
[2016-07-13] MEDS: FUROSEMIDE 40 MG TAB PO SCH (09:07)
[2016-07-13] MEDS: LOSARTAN 50 MG TAB PO SCH ×2 (09:12→20:51)
--- NOTE | 2016-07-13 14:03 | CONS ---
Date/Time of Note Date/Time of Note DATE: 07/13/16 TIME: 14:00 Assessment/Plan Assessment/Plan Chief Complaint/Hosp Course IMPRESSION: 1. Congestive heart failure exacerbation, systolic, acute on chronic. 2. Angina refractory to medical therapy.-negative troponin x3. Now s/p LHC revealing patent KNOTT with all other grafts occluded and patent stents in LCX/ Moderately elevated Right heart filling pressures with low NL cardiac output EF 25% 3. History of coronary artery disease, status post prior percutaneous transluminal coronary angioplasty and stent placement. 4. History of coronary artery bypass grafting with patent KNOTT at last catheterization and other grafts occluded. 5. Increased BNP consistent with the patient's congestive heart failure. 6. Hypertension, labile. 7. Anemia, mild. 8. Dyslipidemia. 9. Diabetes mellitus. 10. Possible seizure disorder, on medications. Rec: -Tele -Continue current BB/ranexa/imdur/norvasc anti-anginal medications -Continue asa/plavix -Continue afterload reduction with losartan -Continue lasix diuresis and will given extra dose now given elevated filling pressures on cath yesterday -D/C planning on current medication doses Problems: Consultation Date/Type/Reason Admit Date/Time Jul 10, 2016 at 01:07 Initial Consult Date 07/10/2016 Type of Consultation: Cardiology Reason for Consultation chest pain/CHF Referring Provider: CARLOS MARTINEZ MD Exam/Review of Systems Vital Signs Vitals Vital Signs Date Time Temp Pulse Resp B/P Pulse Ox O2 Delivery O2 Flow Rate FiO2 07/13/16 11:27 98.1 67 19 113/65 95 07/13/16 07:35 Nasal Cannula 2.0 Intake and Output 07/12/16 07/12/16 07/13/16 15:00 23:00 07:00 Intake Total 240 ml 240 ml Output Total 1200 ml Balance -960 ml 240 ml Exam Review of Systems: CONSTITUTIONAL: No fevers, chills. PULMONARY: No sob CARDIOVASCULAR: No chest pain/palpitations GASTROINTESTINAL: No nausea/vomiting. GENITOURINARY: No hematuria/dysuria. MUSCULOSKELETAL: No myagias/arthalgias. PSYCHIATRIC: The patient denies depression. NEUROLOGIC: No weakness Constitutional: alert, oriented Psych: no complaints Head: normocephalic ENMT: mucosa pink and moist Neck: jvd (9cm water), supple Respiratory: diminished breath sounds Cardiovascular: regular rate and rhythm Gastrointestinal: non-tender, soft Genitourinary - Male: other (R groin) Musculoskeletal: muscle tone Extremities: edema (trace/B) Results Result Diagram: 07/13/16 0536 07/13/16 0535 Results 24 hrs Laboratory Tests Test 07/12/16 15:45 07/12/16 16:03 07/12/16 19:11 07/12/16 20:56 Bedside Glucose 50 L 179 81 81 Test 07/13/16 02:29 07/13/16 05:35 07/13/16 05:36 07/13/16 08:14 Bedside Glucose 105 179 Anion Gap 16 Blood Urea Nitrogen 26 H Calcium Level 9.0 Carbon Dioxide Level 26 Chloride Level 103 Creatinine 1.14 Glucose Level 93 Potassium Level 4.3 Sodium Level 141 Basophils # 0.0 Basophils % 0.3 Eosinophils # 0.1 Eosinophils % 0.5 Hematocrit 37.3 L Hemoglobin 12.4 L Lymphocytes # 1.6 Lymphocytes % 14.7 L Mean Corpuscular Hemoglobin 29.7 Mean Corpuscular Hemoglobin Concent 33.2 Mean Corpuscular Volume 89.2 Mean Platelet Volume 10.7 H Monocytes # 0.9 Monocytes % 8.0 Neutrophils # 8.4 H Neutrophils % 76.1 Nucleated Red Blood Cells # 0.0 Nucleated Red Blood Cells % 0.0 Platelet Count 181 Red Blood Count 4.18 L Red Cell Distribution Width 13.6 White Blood Count 11.1 H Medications Medications Current Medications Acetaminophen (Tylenol Tab) 500 mg Q6 PRN PO PAIN; Start 07/10/16 at 10:30 Alprazolam (Xanax) 0.5 mg Q8 PO Last administered on 07/13/16 05:27; Admin Dose 0.5 MG; Start 07/10/16 at 14:00 Amlodipine Besylate (Norvasc) 5 mg DAILY PO Last administered on 07/13/16 09: 03; Admin Dose 5 MG; Start 07/10/16 at 12:00 Aspirin (Halfprin) 81 mg DAILY PO Last administered on 07/13/16 08:59; Admin Dose 81 MG; Start 07/10/16 at 12:00 Atorvastatin Calcium (Lipitor) 40 mg HS PO Last administered on 07/12/16 21:53 ; Admin Dose 40 MG; Start 07/10/16 at 21:00 Baclofen (Lioresal) 10 mg BID PO Last administered on 07/13/16 08:59; Admin Dose 10 MG; Start 07/10/16 at 21:00 Carvedilol (Coreg) 12.5 mg BID PO Last administered on 07/13/16 09:06; Admin Dose 12.5 MG; Start 07/10/16 at 12:00 Clopidogrel Bisulfate (plaVIX) 75 mg DAILY PO Last administered on 07/13/16 08 :56; Admin Dose 75 MG; Start 07/10/16 at 12:00 Cyanocobalamin (Vitamin B12) 1,000 mcg DAILY PO Last administered on 07/13/16 08:58; Admin Dose 1,000 MCG; Start 07/11/16 at 09:00 Docusate Sodium (Colace) 100 mg TID PO Last administered on 07/13/16 12:11; Admin Dose 100 MG; Start 07/10/16 at 13:00 Furosemide (Lasix) 40 mg DAILY PO Last administered on 07/13/16 09:07; Admin Dose 40 MG; Start 07/10/16 at 12:00 Gabapentin (Neurontin) 300 mg BID PO Last administered on 07/13/16 08:56; Admin Dose 300 MG; Start 07/10/16 at 12:00 Glimepiride (Amaryl) 1 mg DAILY PO Last administered on 07/13/16 08:58; Admin Dose 1 MG; Start 07/11/16 at 09:00 Ibuprofen (Motrin) 800 mg BID PO Last administered on 07/13/16 08:57; Admin Dose 800 MG; Start 07/10/16 at 12:00 Insulin Human Isoph/Insulin Regular (Humulin 70/30) 15 units AM SC Last administered on 07/13/16 09:02; Admin Dose 15 UNITS; Start 07/11/16 at 09:00 Losartan Potassium (Cozaar) 50 mg Q12 PO Last administered on 07/13/16 09:12; Admin Dose 50 MG; Start 07/10/16 at 12:00 Meclizine HCl (Antivert) 25 mg TID PRN PO VERTIGO; Start 07/10/16 at 10:30 Morphine Sulfate (Ms Contin (Er)) 15 mg Q6 PO Last administered on 07/13/16 12 :12; Admin Dose 15 MG; Start 07/10/16 at 12:00 Nitroglycerin (Nitroglycerin (Sl Tab) 0.4 Mg) 1 tab Q5M PRN SL CHEST PAIN Last administered on 07/11/16 10:45; Admin Dose 1 TAB; Start 07/10/16 at 10:30 Pantoprazole (Protonix Tab) 40 mg DAILY@06 PO Last administered on 07/13/16 05 :27; Admin Dose 40 MG; Start 07/11/16 at 06:00 Phenytoin (Dilantin) 300 mg HS PO Last administered on 07/12/16 21:54; Admin Dose 300 MG; Start 07/10/16 at 21:00 Ranolazine (Ranexa) 1,000 mg Q12 PO Last administered on 07/13/16 08:57; Admin Dose 1,000 MG; Start 07/10/16 at 21:00 Zolpidem Tartrate (Ambien) 10 mg HS PRN PO INSOMNIA Last administered on 02:32; Admin Dose 10 MG; Start 07/10/16 at 10:30 Hydromorphone HCl (Dilaudid) 0.5 mg Q4 PRN IV SEVERE PAIN LEVEL 7-10 Last administered on 07/11/16 19:53; Admin Dose 0.5 MG; Start 07/10/16 at 14:30 Isosorbide Mononitrate (Imdur) 90 mg DAILY PO Last administered on 07/13/16 09 :03; Admin Dose 90 MG; Start 07/11/16 at 09:00 Miscellaneous Information 1 ea NOTE XX ; Start 07/10/16 at 18:00 Glucose (Glutose) 15 gm Q15M PRN PO DECREASED GLUCOSE; Start 07/10/16 at 18:00 Glucose (Glutose) 22.5 gm Q15M PRN PO DECREASED GLUCOSE; Start 07/10/16 at 18:00 Dextrose (D50w Syringe) 25 ml Q15M PRN IV DECREASED GLUCOSE Last administered on 07/12/16 16:01; Admin Dose 25 ML; Start 07/10/16 at 18:00 Dextrose (D50w Syringe) 50 ml Q15M PRN IV DECREASED GLUCOSE; Start 07/10/16 at 18:00 Glucagon (Glucagen) 1 mg Q15M PRN IM DECREASED GLUCOSE; Start 07/10/16 at 18:00 Glucose (Glutose) 15 gm Q15M PRN BUCCAL DECREASED GLUCOSE; Start 07/10/16 at 18: 00 Acetaminophen (Tylenol Tab) 650 mg Q6H PRN PO PAIN LEVEL 1-3 OR FEVER; Start at 18:30 Acetaminophen (Tylenol Supp) 650 mg Q6H PRN [place] PAIN LEVEL 1-3 OR FEVER; Start 07/10/16 at 18:30 Acetaminophen/ Hydrocodone Bitart ([place] (5/325)) 1 tab Q6H PRN PO MODERATE PAIN LEVEL 4-6; Start 07/10/16 at 18:30 Docusate Sodium (Colace) 100 mg Q12H PRN PO CONSTIPATION; Start 07/10/16 at 18: 30 Magnesium Hydroxide (Milk Of Mag) 30 ml DAILY PRN PO CONSTIPATION; Start at 18:30 Bisacodyl (Dulcolax) 5 mg DAILY PRN PO CONSTIPATION; Start 07/10/16 at 18:30 Sodium Biphosphate/ Sodium Phosphate (Fleet Enema) 133 ml DAILY PRN [place] CONSTIPATION; Start 07/10/16 at 18:30 Zolpidem Tartrate (Ambien) 5 mg QHS PRN PO SLEEP; Start 07/10/16 at 18:30 Famotidine (Pepcid) 20 mg Q12 PO Last administered on 07/13/16 08:57; Admin Dose 20 MG; Start 07/10/16 at 21:00 Enoxaparin Sodium (Lovenox) 40 mg DAILY SC Last administered on 07/13/16 09:00 ; Admin Dose 40 MG; Start 07/11/16 at 09:00 Miscellaneous Information (Flu Vaccine Previously Dispensed) FLU VACCINE PREVIOU... NOTE PRN XX NOTE; Start 07/10/16 at 19:30 Acetaminophen (Tylenol Tab) 650 mg Q4H PRN PO NON-CARDIAC PAIN LEVEL (1-3); Start 07/12/16 at 12:30 Morphine Sulfate (morphine) 2 mg Q2H PRN IV FOR NON CARDIAC PAIN (4-10); Start 07/12/16 at 12:30 Al Hydrox/Mg Hydrox/Simethicone (Mag-Al Plus) 30 ml Q4H PRN PO GASTROINTESTINAL UPSET; Start 07/12/16 at 12:30 Ondansetron HCl (Zofran Inj) 4 mg Q4H PRN IV NAUSEA AND/OR VOMITING; Start 03/18 at 12:30 NICHOL ACOSTA Jul 13, 2016 14:03
[2016-07-13] MEDS ORDERED: FUROSEMIDE 40 MG INJ IM ONE (14:30)
[2016-07-13] MEDS ORDERED: FUROSEMIDE 40 MG INJ IV ONE (16:30)
--- NOTE | 2016-07-13 20:10 | PN ---
Date/Time of Note Date/Time of Note DATE: 07/13/16 TIME: 20:08 Assessment/Plan VTE Prophylaxis VTE Prophylaxis Intervention: other Assessment/Plan Assessment/Plan Chest pain. 2. Rule out myocardial infarction. 3. Hypertension. 4. Diabetes mellitus. 5. The patient has a pacemaker placement. 6. History of coronary artery disease. 7. History of congestive heart failure. 8. History of coronary artery bypass graft. 9. History of anxiety. 10. History of insomnia. 11. History of chronic pain. 12 s/p cath plan per cardio [id number] cp s still noticing card f/u Subjective 24 Hr Interval Summary Constitutional: no complaints Cardiovascular: chest pain Exam/Review of Systems Vital Signs Vitals Vital Signs Date Time Temp Pulse Resp B/P Pulse Ox O2 Delivery O2 Flow Rate FiO2 07/13/16 16:02 69 07/13/16 15:35 98.3 19 117/63 95 07/13/16 07:35 Nasal Cannula 2.0 Intake and Output 07/12/16 07/12/16 07/13/16 15:00 23:00 07:00 Intake Total 240 ml 240 ml Output Total 1200 ml Balance -960 ml 240 ml Exam Constitutional: alert, oriented Psych: no complaints Neck: supple Respiratory: clear to auscultation Cardiovascular: regular rate and rhythm Gastrointestinal: soft Musculoskeletal: nl extremities to inspection Results Result Diagram: 07/13/16 0536 07/13/16 0535 Results 24 hrs Laboratory Tests Test 07/12/16 20:56 07/13/16 02:29 07/13/16 05:35 07/13/16 05:36 Bedside Glucose 81 105 Anion Gap 16 Blood Urea Nitrogen 26 H Calcium Level 9.0 Carbon Dioxide Level 26 Chloride Level 103 Creatinine 1.14 Glucose Level 93 Potassium Level 4.3 Sodium Level 141 Basophils # 0.0 Basophils % 0.3 Eosinophils # 0.1 Eosinophils % 0.5 Hematocrit 37.3 L Hemoglobin 12.4 L Lymphocytes # 1.6 Lymphocytes % 14.7 L Mean Corpuscular Hemoglobin 29.7 Mean Corpuscular Hemoglobin Concent 33.2 Mean Corpuscular Volume 89.2 Mean Platelet Volume 10.7 H Monocytes # 0.9 Monocytes % 8.0 Neutrophils # 8.4 H Neutrophils % 76.1 Nucleated Red Blood Cells # 0.0 Nucleated Red Blood Cells % 0.0 Platelet Count 181 Red Blood Count 4.18 L Red Cell Distribution Width 13.6 White Blood Count 11.1 H Test 07/13/16 08:14 07/13/16 14:04 07/13/16 18:52 Bedside Glucose 179 57 L 101 Medications Medications Current Medications Acetaminophen (Tylenol Tab) 500 mg Q6 PRN PO PAIN; Start 07/10/16 at 10:30 Alprazolam (Xanax) 0.5 mg Q8 PO Last administered on 07/13/16 05:27; Admin Dose 0.5 MG; Start 07/10/16 at 14:00 Amlodipine Besylate (Norvasc) 5 mg DAILY PO Last administered on 07/13/16 09: 03; Admin Dose 5 MG; Start 07/10/16 at 12:00 Aspirin (Halfprin) 81 mg DAILY PO Last administered on 07/13/16 08:59; Admin Dose 81 MG; Start 07/10/16 at 12:00 Atorvastatin Calcium (Lipitor) 40 mg HS PO Last administered on 07/12/16 21:53 ; Admin Dose 40 MG; Start 07/10/16 at 21:00 Baclofen (Lioresal) 10 mg BID PO Last administered on 07/13/16 08:59; Admin Dose 10 MG; Start 07/10/16 at 21:00 Carvedilol (Coreg) 12.5 mg BID PO Last administered on 07/13/16 09:06; Admin Dose 12.5 MG; Start 07/10/16 at 12:00 Clopidogrel Bisulfate (plaVIX) 75 mg DAILY PO Last administered on 07/13/16 08 :56; Admin Dose 75 MG; Start 07/10/16 at 12:00 Cyanocobalamin (Vitamin B12) 1,000 mcg DAILY PO Last administered on 07/13/16 08:58; Admin Dose 1,000 MCG; Start 07/11/16 at 09:00 Docusate Sodium (Colace) 100 mg TID PO Last administered on 07/13/16 12:11; Admin Dose 100 MG; Start 07/10/16 at 13:00 Furosemide (Lasix) 40 mg DAILY PO Last administered on 07/13/16 09:07; Admin Dose 40 MG; Start 07/10/16 at 12:00 Gabapentin (Neurontin) 300 mg BID PO Last administered on 07/13/16 08:56; Admin Dose 300 MG; Start 07/10/16 at 12:00 Glimepiride (Amaryl) 1 mg DAILY PO Last administered on 07/13/16 08:58; Admin Dose 1 MG; Start 07/11/16 at 09:00 Ibuprofen (Motrin) 800 mg BID PO Last administered on 07/13/16 08:57; Admin Dose 800 MG; Start 07/10/16 at 12:00 Insulin Human Isoph/Insulin Regular (Humulin 70/30) 15 units AM SC Last administered on 07/13/16 09:02; Admin Dose 15 UNITS; Start 07/11/16 at 09:00 Losartan Potassium (Cozaar) 50 mg Q12 PO Last administered on 07/13/16 09:12; Admin Dose 50 MG; Start 07/10/16 at 12:00 Meclizine HCl (Antivert) 25 mg TID PRN PO VERTIGO; Start 07/10/16 at 10:30 Morphine Sulfate (Ms Contin (Er)) 15 mg Q6 PO Last administered on 07/13/16 18 :53; Admin Dose 15 MG; Start 07/10/16 at 12:00 Nitroglycerin (Nitroglycerin (Sl Tab) 0.4 Mg) 1 tab Q5M PRN SL CHEST PAIN Last administered on 07/11/16 10:45; Admin Dose 1 TAB; Start 07/10/16 at 10:30 Pantoprazole (Protonix Tab) 40 mg DAILY@06 PO Last administered on 07/13/16 05 :27; Admin Dose 40 MG; Start 07/11/16 at 06:00 Phenytoin (Dilantin) 300 mg HS PO Last administered on 07/12/16 21:54; Admin Dose 300 MG; Start 07/10/16 at 21:00 Ranolazine (Ranexa) 1,000 mg Q12 PO Last administered on 07/13/16 08:57; Admin Dose 1,000 MG; Start 07/10/16 at 21:00 Zolpidem Tartrate (Ambien) 10 mg HS PRN PO INSOMNIA Last administered on 02:32; Admin Dose 10 MG; Start 07/10/16 at 10:30 Hydromorphone HCl (Dilaudid) 0.5 mg Q4 PRN IV SEVERE PAIN LEVEL 7-10 Last administered on 07/11/16 19:53; Admin Dose 0.5 MG; Start 07/10/16 at 14:30 Isosorbide Mononitrate (Imdur) 90 mg DAILY PO Last administered on 07/13/16 09 :03; Admin Dose 90 MG; Start 07/11/16 at 09:00 Miscellaneous Information 1 ea NOTE XX ; Start 07/10/16 at 18:00 Glucose (Glutose) 15 gm Q15M PRN PO DECREASED GLUCOSE; Start 07/10/16 at 18:00 Glucose (Glutose) 22.5 gm Q15M PRN PO DECREASED GLUCOSE; Start 07/10/16 at 18:00 Dextrose (D50w Syringe) 25 ml Q15M PRN IV DECREASED GLUCOSE Last administered on 07/12/16 16:01; Admin Dose 25 ML; Start 07/10/16 at 18:00 Dextrose (D50w Syringe) 50 ml Q15M PRN IV DECREASED GLUCOSE; Start 07/10/16 at 18:00 Glucagon (Glucagen) 1 mg Q15M PRN IM DECREASED GLUCOSE; Start 07/10/16 at 18:00 Glucose (Glutose) 15 gm Q15M PRN BUCCAL DECREASED GLUCOSE; Start 07/10/16 at 18: 00 Acetaminophen (Tylenol Tab) 650 mg Q6H PRN PO PAIN LEVEL 1-3 OR FEVER; Start at 18:30 Acetaminophen (Tylenol Supp) 650 mg Q6H PRN [place] PAIN LEVEL 1-3 OR FEVER; Start 07/10/16 at 18:30 Acetaminophen/ Hydrocodone Bitart ([place] (5/325)) 1 tab Q6H PRN PO MODERATE PAIN LEVEL 4-6; Start 07/10/16 at 18:30 Docusate Sodium (Colace) 100 mg Q12H PRN PO CONSTIPATION; Start 07/10/16 at 18: 30 Magnesium Hydroxide (Milk Of Mag) 30 ml DAILY PRN PO CONSTIPATION; Start at 18:30 Bisacodyl (Dulcolax) 5 mg DAILY PRN PO CONSTIPATION; Start 07/10/16 at 18:30 Sodium Biphosphate/ Sodium Phosphate (Fleet Enema) 133 ml DAILY PRN [place] CONSTIPATION; Start 07/10/16 at 18:30 Zolpidem Tartrate (Ambien) 5 mg QHS PRN PO SLEEP; Start 07/10/16 at 18:30 Famotidine (Pepcid) 20 mg Q12 PO Last administered on 07/13/16 08:57; Admin Dose 20 MG; Start 07/10/16 at 21:00 Enoxaparin Sodium (Lovenox) 40 mg DAILY SC Last administered on 07/13/16 09:00 ; Admin Dose 40 MG; Start 07/11/16 at 09:00 Miscellaneous Information (Flu Vaccine Previously Dispensed) FLU VACCINE PREVIOU... NOTE PRN XX NOTE; Start 07/10/16 at 19:30 Acetaminophen (Tylenol Tab) 650 mg Q4H PRN PO NON-CARDIAC PAIN LEVEL (1-3); Start 07/12/16 at 12:30 Morphine Sulfate (morphine) 2 mg Q2H PRN IV FOR NON CARDIAC PAIN (4-10); Start 07/12/16 at 12:30 Al Hydrox/Mg Hydrox/Simethicone (Mag-Al Plus) 30 ml Q4H PRN PO GASTROINTESTINAL UPSET; Start 07/12/16 at 12:30 Ondansetron HCl (Zofran Inj) 4 mg Q4H PRN IV NAUSEA AND/OR VOMITING; Start 03/18 at 12:30 Furosemide (Lasix) 40 mg ONCE ONCE IV Last administered on 07/13/16 16:37; Admin Dose 40 MG; Start 07/13/16 at 16:30; Stop 07/13/16 at 16:31 RAFAEL JUNIOR MD Jul 13, 2016 20:10
[2016-07-13] MEDS: ATORVASTATIN 40 MG TAB PO SCH (20:49)
[2016-07-13] MEDS: PHENYTOIN 100 MG CAP PO SCH (20:51)
[2016-07-13] MEDS: HYDROmorphONE 1 MG/ML SYG IV PRN (20:55)
[2016-07-13 22:52] LABS: ALBUMIN 3.9 g/dl (3.3-4.9); POTASSIUM 3.8 mmol/L (3.5-5.1)
[2016-07-13 22:54] LABS: ALBUMIN/GLOBULIN RATIO 1.18; BILIRUBIN,INDIRECT 0.5 mg/dl (0-1.1); BILIRUBIN,TOTAL 0.5 mg/dl (0.2-1.3); CREATININE 0.98 mg/dl (0.61-1.24); TOTAL PROTEIN 7.2 g/dl (6.1-8.1)
[2016-07-13 22:55] LABS: CALCIUM 9.1 mg/dl (8.4-10.2)
[2016-07-14] VITALS (15 sets, daily range): BP systolic 102–150; BP diastolic 56–108; PULSE 60–70; RESP 16–20
[2016-07-14] MEDS: morphine (ER) 15 MG TAB PO SCH ×4 (00:18→18:00)
[2016-07-14] MEDS: ACCUCHECK XX SCH (02:00)
[2016-07-14] MEDS: PANTOPRAZOLE (EC) 40 MG TAB PO SCH (05:18)
[2016-07-14] MEDS: ALPRAZOLAM 0.5 MG TAB PO SCH ×3 (05:43→21:47)
[2016-07-14 06:39] LABS: ALBUMIN 3.8 g/dl (3.3-4.9); POTASSIUM 3.8 mmol/L (3.5-5.1)
[2016-07-14 06:41] LABS: BILIRUBIN,INDIRECT 0.5 mg/dl (0-1.1); BILIRUBIN,TOTAL 0.5 mg/dl (0.2-1.3); CREATININE 1.03 mg/dl (0.61-1.24)
[2016-07-14 06:42] LABS: ALBUMIN/GLOBULIN RATIO 1.08; CALCIUM 9.2 mg/dl (8.4-10.2); TOTAL PROTEIN 7.3 g/dl (6.1-8.1)
[2016-07-14] MEDS: INSULIN ASPART [NOVOLOG] 3 ML PEN SC SCH ×4 (07:55→21:00)
[2016-07-14] MEDS: metFORMIN 500 MG TAB PO SCH ×2 (08:53→18:27)
[2016-07-14] MEDS: DOCUSATE SODIUM 100 MG CAP PO SCH ×3 (08:54→21:47)
[2016-07-14] MEDS: GABAPENTIN 300 MG CAP PO SCH ×2 (08:55→21:48)
[2016-07-14] MEDS: ASPIRIN (EC) 81 MG TAB PO SCH (08:55)
[2016-07-14] MEDS: FAMOTIDINE 20 MG TAB PO SCH ×2 (08:55→21:47)
[2016-07-14] MEDS: ISOSORBIDE MONONITRATE(SR)30 MG TAB PO SCH (08:55)
[2016-07-14] MEDS: IBUPROFEN 800 MG TAB PO SCH ×2 (08:55→21:00)
[2016-07-14] MEDS: CLOPIDOGREL 75 MG TAB PO SCH (08:55)
[2016-07-14] MEDS: RANOLAZINE (SR) 500 MG TAB PO SCH ×2 (08:55→21:47)
[2016-07-14] MEDS: AMLODIPINE 5 MG TAB PO SCH (08:56)
[2016-07-14] MEDS: CYANOCOBALAMIN 500 MCG TAB PO SCH (08:56)
[2016-07-14] MEDS: BACLOFEN 10 MG TAB PO SCH ×2 (08:56→21:47)
[2016-07-14] MEDS: LOSARTAN 50 MG TAB PO SCH ×2 (08:56→21:47)
[2016-07-14] MEDS: FUROSEMIDE 40 MG TAB PO SCH ×2 (08:57→18:29)
[2016-07-14] MEDS: ENOXAPARIN 40 MG/0.4 ML SYG SC SCH (08:59)
[2016-07-14] MEDS: HUMULIN 70/30 3ML VIAL SC SCH (08:59)
--- NOTE | 2016-07-14 13:31 | CONS ---
Date/Time of Note Date/Time of Note DATE: 07/14/16 TIME: 13:29 Assessment/Plan Assessment/Plan Chief Complaint/Hosp Course IMPRESSION: 1. Congestive heart failure exacerbation, systolic, acute on chronic. 2. Angina refractory to medical therapy.-negative troponin x3. Now s/p LHC revealing patent KNOTT with all other grafts occluded and patent stents in LCX/ Moderately elevated Right heart filling pressures with low NL cardiac output EF 25%- Angina is chronic and non-intervenable 3. History of coronary artery disease, status post prior percutaneous transluminal coronary angioplasty and stent placement. 4. History of coronary artery bypass grafting with patent KNOTT at last catheterization and other grafts occluded. 5. Increased BNP consistent with the patient's congestive heart failure. 6. Hypertension, labile. 7. Anemia, mild. 8. Dyslipidemia. 9. Diabetes mellitus. 10. Possible seizure disorder, on medications. Rec: -Tele -Continue current BB/ranexa/imdur/norvasc anti-anginal medications -Continue asa/plavix -Continue afterload reduction with losartan -Increase lasix diuresis and follow up volume status closely -D/C planning on current medication doses Problems: Consultation Date/Type/Reason Admit Date/Time Jul 10, 2016 at 01:07 Initial Consult Date 07/10/2016 Type of Consultation: Cardiology Reason for Consultation CHF Referring Provider: CARLOS MARTINEZ MD Exam/Review of Systems Vital Signs Vitals Vital Signs Date Time Temp Pulse Resp B/P Pulse Ox O2 Delivery O2 Flow Rate FiO2 07/14/16 12:05 60 07/14/16 11:26 98.0 18 107/60 96 07/14/16 07:30 Nasal Cannula 2.0 Intake and Output 07/13/16 07/13/16 07/14/16 14:59 22:59 06:59 Intake Total 600 ml 600 ml Output Total 1400 ml 800 ml Balance -800 ml -200 ml Exam Review of Systems: CONSTITUTIONAL: No fevers, chills. PULMONARY: mild sob CARDIOVASCULAR: No chest pain/palpitations GASTROINTESTINAL: No nausea/vomiting. GENITOURINARY: No hematuria/dysuria. MUSCULOSKELETAL: No myagias/arthalgias. PSYCHIATRIC: The patient denies depression. NEUROLOGIC: No weakness Constitutional: alert Psych: no complaints Head: normocephalic ENMT: mucosa pink and moist Neck: jvd (9 cm water), supple Respiratory: diminished breath sounds Cardiovascular: regular rate and rhythm Gastrointestinal: non-tender, soft Extremities: other (bilateral) Results Result Diagram: 07/13/16 0536 07/14/16 0535 Results 24 hrs Laboratory Tests Test 07/13/16 14:04 07/13/16 18:52 07/13/16 21:03 07/13/16 22:05 Bedside Glucose 57 L 101 127 Alanine Aminotransferase (ALT/SGPT) 16 Albumin 3.9 Albumin/Globulin Ratio 1.18 Alkaline Phosphatase 62 Anion Gap 17 H Aspartate Amino Transf (AST/SGOT) 36 Blood Urea Nitrogen 26 H Calcium Level 9.1 Carbon Dioxide Level 26 Chloride Level 98 Creatinine 0.98 Direct Bilirubin 0.00 Globulin 3.30 H Glucose Level 188 Indirect Bilirubin 0.5 Potassium Level 3.8 Sodium Level 137 Total Bilirubin 0.5 Total Protein 7.2 Test 07/13/16 22:49 07/14/16 05:35 07/14/16 07:28 07/14/16 11:30 Bedside Glucose 233 H 132 131 Alanine Aminotransferase (ALT/SGPT) 23 Albumin 3.8 Albumin/Globulin Ratio 1.08 Alkaline Phosphatase 69 Anion Gap 18 H Aspartate Amino Transf (AST/SGOT) 36 Blood Urea Nitrogen 31 H Calcium Level 9.2 Carbon Dioxide Level 27 Chloride Level 99 Creatinine 1.03 Direct Bilirubin 0.00 Globulin 3.50 H Glucose Level 126 # Indirect Bilirubin 0.5 Potassium Level 3.8 Sodium Level 140 Total Bilirubin 0.5 Total Protein 7.3 Medications Medications Current Medications Acetaminophen (Tylenol Tab) 500 mg Q6 PRN PO PAIN; Start 07/10/16 at 10:30 Alprazolam (Xanax) 0.5 mg Q8 PO Last administered on 07/13/16 22:19; Admin Dose 0.5 MG; Start 07/10/16 at 14:00 Amlodipine Besylate (Norvasc) 5 mg DAILY PO Last administered on 07/14/16 08: 56; Admin Dose 5 MG; Start 07/10/16 at 12:00 Aspirin (Halfprin) 81 mg DAILY PO Last administered on 07/14/16 08:55; Admin Dose 81 MG; Start 07/10/16 at 12:00 Atorvastatin Calcium (Lipitor) 40 mg HS PO Last administered on 07/13/16 20:49 ; Admin Dose 40 MG; Start 07/10/16 at 21:00 Baclofen (Lioresal) 10 mg BID PO Last administered on 07/14/16 08:56; Admin Dose 10 MG; Start 07/10/16 at 21:00 Carvedilol (Coreg) 12.5 mg BID PO Last administered on 07/14/16 08:54; Admin Dose 12.5 MG; Start 07/10/16 at 12:00 Clopidogrel Bisulfate (plaVIX) 75 mg DAILY PO Last administered on 07/14/16 08 :55; Admin Dose 75 MG; Start 07/10/16 at 12:00 Cyanocobalamin (Vitamin B12) 1,000 mcg DAILY PO Last administered on 07/14/16 08:56; Admin Dose 1,000 MCG; Start 07/11/16 at 09:00 Docusate Sodium (Colace) 100 mg TID PO Last administered on 07/14/16 08:54; Admin Dose 100 MG; Start 07/10/16 at 13:00 Furosemide (Lasix) 40 mg DAILY PO Last administered on 07/14/16 08:57; Admin Dose 40 MG; Start 07/10/16 at 12:00 Gabapentin (Neurontin) 300 mg BID PO Last administered on 07/14/16 08:55; Admin Dose 300 MG; Start 07/10/16 at 12:00 Ibuprofen (Motrin) 800 mg BID PO Last administered on 07/14/16 08:55; Admin Dose 800 MG; Start 07/10/16 at 12:00 Insulin Human Isoph/Insulin Regular (Humulin 70/30) 15 units AM SC Last administered on 07/14/16 08:59; Admin Dose 15 UNITS; Start 07/11/16 at 09:00 Losartan Potassium (Cozaar) 50 mg Q12 PO Last administered on 07/14/16 08:56; Admin Dose 50 MG; Start 07/10/16 at 12:00 Meclizine HCl (Antivert) 25 mg TID PRN PO VERTIGO; Start 07/10/16 at 10:30 Morphine Sulfate (Ms Contin (Er)) 15 mg Q6 PO Last administered on 07/14/16 05 :19; Admin Dose 15 MG; Start 07/10/16 at 12:00 Nitroglycerin (Nitroglycerin (Sl Tab) 0.4 Mg) 1 tab Q5M PRN SL CHEST PAIN Last administered on 07/11/16 10:45; Admin Dose 1 TAB; Start 07/10/16 at 10:30 Pantoprazole (Protonix Tab) 40 mg DAILY@06 PO Last administered on 07/14/16 05 :18; Admin Dose 40 MG; Start 07/11/16 at 06:00 Phenytoin (Dilantin) 300 mg HS PO Last administered on 07/13/16 20:51; Admin Dose 300 MG; Start 07/10/16 at 21:00 Ranolazine (Ranexa) 1,000 mg Q12 PO Last administered on 07/14/16 08:55; Admin Dose 1,000 MG; Start 07/10/16 at 21:00 Zolpidem Tartrate (Ambien) 10 mg HS PRN PO INSOMNIA Last administered on 02:32; Admin Dose 10 MG; Start 07/10/16 at 10:30 Hydromorphone HCl (Dilaudid) 0.5 mg Q4 PRN IV SEVERE PAIN LEVEL 7-10 Last administered on 07/13/16 20:55; Admin Dose 0.5 MG; Start 07/10/16 at 14:30 Isosorbide Mononitrate (Imdur) 90 mg DAILY PO Last administered on 07/14/16 08 :55; Admin Dose 90 MG; Start 07/11/16 at 09:00 Miscellaneous Information 1 ea NOTE XX ; Start 07/10/16 at 18:00 Glucose (Glutose) 15 gm Q15M PRN PO DECREASED GLUCOSE; Start 07/10/16 at 18:00 Glucose (Glutose) 22.5 gm Q15M PRN PO DECREASED GLUCOSE; Start 07/10/16 at 18:00 Dextrose (D50w Syringe) 25 ml Q15M PRN IV DECREASED GLUCOSE Last administered on 07/12/16 16:01; Admin Dose 25 ML; Start 07/10/16 at 18:00 Dextrose (D50w Syringe) 50 ml Q15M PRN IV DECREASED GLUCOSE; Start 07/10/16 at 18:00 Glucagon (Glucagen) 1 mg Q15M PRN IM DECREASED GLUCOSE; Start 07/10/16 at 18:00 Glucose (Glutose) 15 gm Q15M PRN BUCCAL DECREASED GLUCOSE; Start 07/10/16 at 18: 00 Acetaminophen (Tylenol Tab) 650 mg Q6H PRN PO PAIN LEVEL 1-3 OR FEVER; Start at 18:30 Acetaminophen (Tylenol Supp) 650 mg Q6H PRN [place] PAIN LEVEL 1-3 OR FEVER; Start 07/10/16 at 18:30 Acetaminophen/ Hydrocodone Bitart ([place] (5/325)) 1 tab Q6H PRN PO MODERATE PAIN LEVEL 4-6; Start 07/10/16 at 18:30 Docusate Sodium (Colace) 100 mg Q12H PRN PO CONSTIPATION; Start 07/10/16 at 18: 30 Magnesium Hydroxide (Milk Of Mag) 30 ml DAILY PRN PO CONSTIPATION; Start at 18:30 Bisacodyl (Dulcolax) 5 mg DAILY PRN PO CONSTIPATION; Start 07/10/16 at 18:30 Sodium Biphosphate/ Sodium Phosphate (Fleet Enema) 133 ml DAILY PRN [place] CONSTIPATION; Start 07/10/16 at 18:30 Zolpidem Tartrate (Ambien) 5 mg QHS PRN PO SLEEP; Start 07/10/16 at 18:30 Famotidine (Pepcid) 20 mg Q12 PO Last administered on 07/14/16 08:55; Admin Dose 20 MG; Start 07/10/16 at 21:00 Enoxaparin Sodium (Lovenox) 40 mg DAILY SC Last administered on 07/14/16 08:59 ; Admin Dose 40 MG; Start 07/11/16 at 09:00 Miscellaneous Information (Flu Vaccine Previously Dispensed) FLU VACCINE PREVIOU... NOTE PRN XX NOTE; Start 07/10/16 at 19:30 Acetaminophen (Tylenol Tab) 650 mg Q4H PRN PO NON-CARDIAC PAIN LEVEL (1-3); Start 07/12/16 at 12:30 Morphine Sulfate (morphine) 2 mg Q2H PRN IV FOR NON CARDIAC PAIN (4-10); Start 07/12/16 at 12:30 Al Hydrox/Mg Hydrox/Simethicone (Mag-Al Plus) 30 ml Q4H PRN PO GASTROINTESTINAL UPSET; Start 07/12/16 at 12:30 Ondansetron HCl (Zofran Inj) 4 mg Q4H PRN IV NAUSEA AND/OR VOMITING; Start 03/18 at 12:30 Furosemide (Lasix) 40 mg ONCE ONCE IV Last administered on 07/13/16t 16:37; Admin Dose 40 MG; Start 07/13/16 at 16:30; Stop 07/13/16 at 16:31 Miscellaneous Information (* Miscellaneous Pharmacy Order) HYPOGLYCEMIA PROTOCOL w... ONCE ONCE XX ; Start 07/13/16 at 21:30; Stop 07/13/16 at 21:31 Miscellaneous Information (* Miscellaneous Pharmacy Order) Discontinue Glyburide , Glipizide,... ONCE ONCE XX ; Start 07/13/16 at 21:30; Stop 07/13/16 at 21:31 Miscellaneous Information (* Miscellaneous Pharmacy Order) Discontinue all previ... ONCE ONCE XX ; Start 07/13/16 at 21:30; Stop 07/13/16 at 21:31 Diagnostic Test (Pha) (Accucheck) 1 ea 02 XX ; Start 07/14/16 at 02:00 NICHOL ACOSTA Jul 14, 2016 13:31
--- NOTE | 2016-07-14 18:53 | PN ---
Date/Time of Note Date/Time of Note DATE: 07/14/16 TIME: 18:51 Assessment/Plan VTE Prophylaxis VTE Prophylaxis Intervention: other Lines/Catheters IV Catheter Type (from Nrs): Saline Lock Assessment/Plan Chief Complaint/Hosp Course Assessment/Plan Chest pain. 2. Rule out myocardial infarction. 3. Hypertension. 4. Diabetes mellitus. 5. The patient has a pacemaker placement. 6. History of coronary artery disease. 7. History of congestive heart failure. 8. History of coronary artery bypass graft. 9. History of anxiety. 10. History of insomnia. 11. History of chronic pain. 12 s/p cath plan per cardio [id number] cp s still noticing card f/u [id number] cleared by card dc am Problems: Subjective 24 Hr Interval Summary Constitutional: improved Respiratory: no complaints Cardiovascular: no complaints Gastrointestinal: no complaints Exam/Review of Systems Vital Signs Vitals Vital Signs Date Time Temp Pulse Resp B/P Pulse Ox O2 Delivery O2 Flow Rate FiO2 07/14/16 16:10 60 07/14/16 15:41 98.1 18 125/68 96 07/14/16 07:30 Nasal Cannula 2.0 Intake and Output 07/13/16 07/13/16 07/14/16 15:00 23:00 07:00 Intake Total 600 ml 600 ml Output Total 1400 ml 800 ml Balance -800 ml -200 ml Exam Constitutional: alert, oriented, well developed Head: normocephalic Eyes: nl conjunctiva Neck: supple Respiratory: clear to auscultation Cardiovascular: regular rate and rhythm Gastrointestinal: nl liver, spleen, soft Results Result Diagram: 07/13/16 0536 07/14/16 0535 Results 24 hrs Laboratory Tests Test 07/13/16 18:52 07/13/16 21:03 07/13/16 22:05 07/13/16 22:49 Bedside Glucose 101 127 233 H Alanine Aminotransferase (ALT/SGPT) 16 Albumin 3.9 Albumin/Globulin Ratio 1.18 Alkaline Phosphatase 62 Anion Gap 17 H Aspartate Amino Transf (AST/SGOT) 36 Blood Urea Nitrogen 26 H Calcium Level 9.1 Carbon Dioxide Level 26 Chloride Level 98 Creatinine 0.98 Direct Bilirubin 0.00 Globulin 3.30 H Glucose Level 188 Indirect Bilirubin 0.5 Potassium Level 3.8 Sodium Level 137 Total Bilirubin 0.5 Total Protein 7.2 Test 07/14/16 05:35 07/14/16 07:28 07/14/16 11:30 07/14/16 18:12 Alanine Aminotransferase (ALT/SGPT) 23 Albumin 3.8 Albumin/Globulin Ratio 1.08 Alkaline Phosphatase 69 Anion Gap 18 H Aspartate Amino Transf (AST/SGOT) 36 Blood Urea Nitrogen 31 H Calcium Level 9.2 Carbon Dioxide Level 27 Chloride Level 99 Creatinine 1.03 Direct Bilirubin 0.00 Globulin 3.50 H Glucose Level 126 # Indirect Bilirubin 0.5 Potassium Level 3.8 Sodium Level 140 Total Bilirubin 0.5 Total Protein 7.3 Bedside Glucose 132 131 126 Medications Medications Current Medications Acetaminophen (Tylenol Tab) 500 mg Q6 PRN PO PAIN; Start 07/10/16 at 10:30 Alprazolam (Xanax) 0.5 mg Q8 PO Last administered on 07/13/16 22:19; Admin Dose 0.5 MG; Start 07/10/16 at 14:00 Amlodipine Besylate (Norvasc) 5 mg DAILY PO Last administered on 07/14/16 08: 56; Admin Dose 5 MG; Start 07/10/16 at 12:00 Aspirin (Halfprin) 81 mg DAILY PO Last administered on 07/14/16 08:55; Admin Dose 81 MG; Start 07/10/16 at 12:00 Atorvastatin Calcium (Lipitor) 40 mg HS PO Last administered on 07/13/16 20:49 ; Admin Dose 40 MG; Start 07/10/16 at 21:00 Baclofen (Lioresal) 10 mg BID PO Last administered on 07/14/16 08:56; Admin Dose 10 MG; Start 07/10/16 at 21:00 Carvedilol (Coreg) 12.5 mg BID PO Last administered on 07/14/16 08:54; Admin Dose 12.5 MG; Start 07/10/16 at 12:00 Clopidogrel Bisulfate (plaVIX) 75 mg DAILY PO Last administered on 07/14/16 08 :55; Admin Dose 75 MG; Start 07/10/16 at 12:00 Cyanocobalamin (Vitamin B12) 1,000 mcg DAILY PO Last administered on 07/14/16 08:56; Admin Dose 1,000 MCG; Start 07/11/16 at 09:00 Docusate Sodium (Colace) 100 mg TID PO Last administered on 07/14/16 14:25; Admin Dose 100 MG; Start 07/10/16 at 13:00 Gabapentin (Neurontin) 300 mg BID PO Last administered on 07/14/16 08:55; Admin Dose 300 MG; Start 07/10/16 at 12:00 Ibuprofen (Motrin) 800 mg BID PO Last administered on 07/14/16 08:55; Admin Dose 800 MG; Start 07/10/16 at 12:00 Insulin Human Isoph/Insulin Regular (Humulin 70/30) 15 units AM SC Last administered on 07/14/16 08:59; Admin Dose 15 UNITS; Start 07/11/16 at 09:00 Losartan Potassium (Cozaar) 50 mg Q12 PO Last administered on 07/14/16 08:56; Admin Dose 50 MG; Start 07/10/16 at 12:00 Meclizine HCl (Antivert) 25 mg TID PRN PO VERTIGO; Start 07/10/16 at 10:30 Morphine Sulfate (Ms Contin (Er)) 15 mg Q6 PO Last administered on 07/14/16 05 :19; Admin Dose 15 MG; Start 07/10/16 at 12:00 Nitroglycerin (Nitroglycerin (Sl Tab) 0.4 Mg) 1 tab Q5M PRN SL CHEST PAIN Last administered on 07/11/16 10:45; Admin Dose 1 TAB; Start 07/10/16 at 10:30 Pantoprazole (Protonix Tab) 40 mg DAILY@06 PO Last administered on 07/14/16 05 :18; Admin Dose 40 MG; Start 07/11/16 at 06:00 Phenytoin (Dilantin) 300 mg HS PO Last administered on 07/13/16 20:51; Admin Dose 300 MG; Start 07/10/16 at 21:00 Ranolazine (Ranexa) 1,000 mg Q12 PO Last administered on 07/14/16 08:55; Admin Dose 1,000 MG; Start 07/10/16 at 21:00 Zolpidem Tartrate (Ambien) 10 mg HS PRN PO INSOMNIA Last administered on 02:32; Admin Dose 10 MG; Start 07/10/16 at 10:30 Hydromorphone HCl (Dilaudid) 0.5 mg Q4 PRN IV SEVERE PAIN LEVEL 7-10 Last administered on 07/13/16 20:55; Admin Dose 0.5 MG; Start 07/10/16 at 14:30 Isosorbide Mononitrate (Imdur) 90 mg DAILY PO Last administered on 07/14/16 08 :55; Admin Dose 90 MG; Start 07/11/16 at 09:00 Miscellaneous Information 1 ea NOTE XX ; Start 07/10/16 at 18:00 Glucose (Glutose) 15 gm Q15M PRN PO DECREASED GLUCOSE; Start 07/10/16 at 18:00 Glucose (Glutose) 22.5 gm Q15M PRN PO DECREASED GLUCOSE; Start 07/10/16 at 18:00 Dextrose (D50w Syringe) 25 ml Q15M PRN IV DECREASED GLUCOSE Last administered on 07/12/16 16:01; Admin Dose 25 ML; Start 07/10/16 at 18:00 Dextrose (D50w Syringe) 50 ml Q15M PRN IV DECREASED GLUCOSE; Start 07/10/16 at 18:00 Glucagon (Glucagen) 1 mg Q15M PRN IM DECREASED GLUCOSE; Start 07/10/16 at 18:00 Glucose (Glutose) 15 gm Q15M PRN BUCCAL DECREASED GLUCOSE; Start 07/10/16 at 18: 00 Acetaminophen (Tylenol Tab) 650 mg Q6H PRN PO PAIN LEVEL 1-3 OR FEVER; Start at 18:30 Acetaminophen (Tylenol Supp) 650 mg Q6H PRN [place] PAIN LEVEL 1-3 OR FEVER; Start 07/10/16 at 18:30 Acetaminophen/ Hydrocodone Bitart ([place] (5/325)) 1 tab Q6H PRN PO MODERATE PAIN LEVEL 4-6; Start 07/10/16 at 18:30 Docusate Sodium (Colace) 100 mg Q12H PRN PO CONSTIPATION; Start 07/10/16 at 18: 30 Magnesium Hydroxide (Milk Of Mag) 30 ml DAILY PRN PO CONSTIPATION; Start at 18:30 Bisacodyl (Dulcolax) 5 mg DAILY PRN PO CONSTIPATION; Start 07/10/16 at 18:30 Sodium Biphosphate/ Sodium Phosphate (Fleet Enema) 133 ml DAILY PRN [place] CONSTIPATION; Start 07/10/16 at 18:30 Zolpidem Tartrate (Ambien) 5 mg QHS PRN PO SLEEP; Start 07/10/16 at 18:30 Famotidine (Pepcid) 20 mg Q12 PO Last administered on 07/14/16 08:55; Admin Dose 20 MG; Start 07/10/16 at 21:00 Enoxaparin Sodium (Lovenox) 40 mg DAILY SC Last administered on 07/14/16 08:59 ; Admin Dose 40 MG; Start 07/11/16 at 09:00 Miscellaneous Information (Flu Vaccine Previously Dispensed) FLU VACCINE PREVIOU... NOTE PRN XX NOTE; Start 07/10/16 at 19:30 Acetaminophen (Tylenol Tab) 650 mg Q4H PRN PO NON-CARDIAC PAIN LEVEL (1-3); Start 07/12/16 at 12:30 Morphine Sulfate (morphine) 2 mg Q2H PRN IV FOR NON CARDIAC PAIN (4-10); Start 07/12/16 at 12:30 Al Hydrox/Mg Hydrox/Simethicone (Mag-Al Plus) 30 ml Q4H PRN PO GASTROINTESTINAL UPSET; Start 07/12/16 at 12:30 Ondansetron HCl (Zofran Inj) 4 mg Q4H PRN IV NAUSEA AND/OR VOMITING; Start 03/18 at 12:30 Diagnostic Test (Pha) (Accucheck) 1 ea XX ; Start 07/14/16 at 02:00 ARFAEL JUNIOR MD Jul 14, 2016 18:53
[2016-07-14] MEDS: NITROGLYCERIN (SL) 0.4 MG TAB SL PRN ×2 (20:10→21:48)
[2016-07-14] MEDS: ATORVASTATIN 40 MG TAB PO SCH (21:00)
[2016-07-14] MEDS: PHENYTOIN 100 MG CAP PO SCH (21:00)
[2016-07-15] VITALS (11 sets, daily range): BP systolic 115–135; BP diastolic 62–76; PULSE 60–66; RESP 15–20
[2016-07-15] MEDS: morphine (ER) 15 MG TAB PO SCH ×4 (00:51→18:24)
[2016-07-15] MEDS: ACCUCHECK XX SCH (02:00)
[2016-07-15] MEDS: morphine 2 MG INJ IV PRN ×2 (05:40→14:34)
[2016-07-15] MEDS: PANTOPRAZOLE (EC) 40 MG TAB PO SCH (06:00)
[2016-07-15] MEDS: ALPRAZOLAM 0.5 MG TAB PO SCH ×2 (06:12→13:13)
[2016-07-15] MEDS: FUROSEMIDE 40 MG TAB PO SCH ×2 (06:21→18:00)
[2016-07-15] MEDS: INSULIN ASPART [NOVOLOG] 3 ML PEN SC SCH ×3 (07:55→17:55)
[2016-07-15] MEDS: AMLODIPINE 5 MG TAB PO SCH (09:00)
[2016-07-15] MEDS: FAMOTIDINE 20 MG TAB PO SCH (09:00)
[2016-07-15] MEDS: LOSARTAN 50 MG TAB PO SCH (09:00)
[2016-07-15] MEDS: IBUPROFEN 800 MG TAB PO SCH (09:00)
[2016-07-15] MEDS: HUMULIN 70/30 3ML VIAL SC SCH (09:00)
[2016-07-15] MEDS: ISOSORBIDE MONONITRATE(SR)30 MG TAB PO SCH (09:00)
[2016-07-15] MEDS: RANOLAZINE (SR) 500 MG TAB PO SCH (09:06)
[2016-07-15] MEDS: CYANOCOBALAMIN 500 MCG TAB PO SCH (09:06)
[2016-07-15] MEDS: metFORMIN 500 MG TAB PO SCH ×2 (09:07→17:55)
[2016-07-15] MEDS: ENOXAPARIN 40 MG/0.4 ML SYG SC SCH (09:07)
[2016-07-15] MEDS: CLOPIDOGREL 75 MG TAB PO SCH (09:08)
[2016-07-15] MEDS: DOCUSATE SODIUM 100 MG CAP PO SCH ×2 (09:09→13:00)
[2016-07-15] MEDS: ASPIRIN (EC) 81 MG TAB PO SCH (09:09)
[2016-07-15] MEDS: GABAPENTIN 300 MG CAP PO SCH (09:09)
[2016-07-15] MEDS: BACLOFEN 10 MG TAB PO SCH (09:39)
--- NOTE | 2016-07-15 11:13 | CONS ---
Date/Time of Note Date/Time of Note DATE: 07/15/16 TIME: 11:10 Assessment/Plan Assessment/Plan Chief Complaint/Hosp Course IMPRESSION: 1. Congestive heart failure exacerbation, systolic, acute on chronic. 2. Angina refractory to medical therapy.-negative troponin x3. Now s/p LHC revealing patent KNOTT with all other grafts occluded and patent stents in LCX/ Moderately elevated Right heart filling pressures with low NL cardiac output EF 25%- Angina is chronic and non-intervenable 3. History of coronary artery disease, status post prior percutaneous transluminal coronary angioplasty and stent placement. 4. History of coronary artery bypass grafting with patent KNOTT at last catheterization and other grafts occluded. 5. Increased BNP consistent with the patient's congestive heart failure. 6. Hypertension, labile. 7. Anemia, mild. 8. Dyslipidemia. 9. Diabetes mellitus. 10. Possible seizure disorder, on medications. Rec: -Tele -Continue current BB/ranexa/imdur/norvasc anti-anginal medications -Continue asa/plavix -Continue afterload reduction with losartan -Continue current lasix dose at D/C s/p increase yesterday and follow up volume status closely -D/C planning on current medication doses -PT as patient c/o weakness/inability to ambulate Problems: Consultation Date/Type/Reason Admit Date/Time Jul 10, 2016 at 01:07 Initial Consult Date 07/10/2016 Type of Consultation: Cardiology Reason for Consultation CHF Referring Provider: CARLOS MARTINEZ MD Exam/Review of Systems Vital Signs Vitals Vital Signs Date Time Temp Pulse Resp B/P Pulse Ox O2 Delivery O2 Flow Rate FiO2 07/15/16 09:32 60 07/15/16 08:38 98.3 19 135/67 98 07/15/16 08:00 Nasal Cannula 2.0 Intake and Output 07/14/16 07/14/16 07/15/16 15:00 23:00 07:00 Intake Total 850 ml 800 ml Output Total 800 ml 575 ml Balance 50 ml 225 ml Exam Review of Systems: CONSTITUTIONAL: No fevers, chills. PULMONARY: mild sob CARDIOVASCULAR: ongoing chest pain/palpitations GASTROINTESTINAL: No nausea/vomiting. GENITOURINARY: No hematuria/dysuria. MUSCULOSKELETAL: No myagias/arthalgias. PSYCHIATRIC: The patient denies depression. NEUROLOGIC: lethargic Constitutional: alert, oriented Psych: no complaints Head: normocephalic ENMT: mucosa pink and moist Neck: jvd (9 cm water), supple Respiratory: diminished breath sounds (at bases/B) Cardiovascular: regular rate and rhythm Gastrointestinal: non-tender, soft Musculoskeletal: muscle tone (normal) Extremities: other (No focal deficits) Results Result Diagram: 07/13/16 0536 07/14/16 0535 Results 24 hrs Laboratory Tests Test 07/14/16 11:30 07/14/16 18:12 07/14/16 20:23 07/15/16 03:17 Bedside Glucose 131 126 106 114 Test 07/15/16 07:47 Bedside Glucose 109 Medications Medications Current Medications Acetaminophen (Tylenol Tab) 500 mg Q6 PRN PO PAIN; Start 07/10/16 at 10:30 Alprazolam (Xanax) 0.5 mg Q8 PO Last administered on 07/15/16 06:12; Admin Dose 0.5 MG; Start 07/10/16 at 14:00 Amlodipine Besylate (Norvasc) 5 mg DAILY PO Last administered on 07/14/16 08: 56; Admin Dose 5 MG; Start 07/10/16 at 12:00 Aspirin (Halfprin) 81 mg DAILY PO Last administered on 07/15/16 09:09; Admin Dose 81 MG; Start 07/10/16 at 12:00 Atorvastatin Calcium (Lipitor) 40 mg HS PO Last administered on 07/13/16 20:49 ; Admin Dose 40 MG; Start 07/10/16 at 21:00 Baclofen (Lioresal) 10 mg BID PO Last administered on 07/15/16 09:39; Admin Dose 10 MG; Start 07/10/16 at 21:00 Carvedilol (Coreg) 12.5 mg BID PO Last administered on 07/15/16 09:11; Admin Dose 12.5 MG; Start 07/10/16 at 12:00 Clopidogrel Bisulfate (plaVIX) 75 mg DAILY PO Last administered on 07/15/16 09 :08; Admin Dose 75 MG; Start 07/10/16 at 12:00 Cyanocobalamin (Vitamin B12) 1,000 mcg DAILY PO Last administered on 07/15/16 09:06; Admin Dose 1,000 MCG; Start 07/11/16 at 09:00 Docusate Sodium (Colace) 100 mg TID PO Last administered on 07/15/16 09:09; Admin Dose 100 MG; Start 07/10/16 at 13:00 Gabapentin (Neurontin) 300 mg BID PO Last administered on 07/15/16 09:09; Admin Dose 300 MG; Start 07/10/16 at 12:00 Ibuprofen (Motrin) 800 mg BID PO Last administered on 07/14/16 08:55; Admin Dose 800 MG; Start 07/10/16 at 12:00 Insulin Human Isoph/Insulin Regular (Humulin 70/30) 15 units AM SC Last administered on 07/14/16 08:59; Admin Dose 15 UNITS; Start 07/11/16 at 09:00 Losartan Potassium (Cozaar) 50 mg Q12 PO Last administered on 07/14/16 21:47; Admin Dose 50 MG; Start 07/10/16 at 12:00 Meclizine HCl (Antivert) 25 mg TID PRN PO VERTIGO; Start 07/10/16 at 10:30 Morphine Sulfate (Ms Contin (Er)) 15 mg Q6 PO Last administered on 07/15/16 06 :23; Admin Dose 15 MG; Start 07/10/16 at 12:00 Nitroglycerin (Nitroglycerin (Sl Tab) 0.4 Mg) 1 tab Q5M PRN SL CHEST PAIN Last administered on 07/14/16 21:48; Admin Dose 1 TAB; Start 07/10/16 at 10:30 Pantoprazole (Protonix Tab) 40 mg DAILY@06 PO Last administered on 07/14/16 05 :18; Admin Dose 40 MG; Start 07/11/16 at 06:00 Phenytoin (Dilantin) 300 mg HS PO Last administered on 07/13/16 20:51; Admin Dose 300 MG; Start 07/10/16 at 21:00 Ranolazine (Ranexa) 1,000 mg Q12 PO Last administered on 07/15/16 09:06; Admin Dose 1,000 MG; Start 07/10/16 at 21:00 Zolpidem Tartrate (Ambien) 10 mg HS PRN PO INSOMNIA Last administered on 02:32; Admin Dose 10 MG; Start 07/10/16 at 10:30 Hydromorphone HCl (Dilaudid) 0.5 mg Q4 PRN IV SEVERE PAIN LEVEL 7-10 Last administered on 07/13/16 20:55; Admin Dose 0.5 MG; Start 07/10/16 at 14:30 Isosorbide Mononitrate (Imdur) 90 mg DAILY PO Last administered on 07/14/16 08 :55; Admin Dose 90 MG; Start 07/11/16 at 09:00 Miscellaneous Information 1 ea NOTE XX ; Start 07/10/16 at 18:00 Glucose (Glutose) 15 gm Q15M PRN PO DECREASED GLUCOSE; Start 07/10/16 at 18:00 Glucose (Glutose) 22.5 gm Q15M PRN PO DECREASED GLUCOSE; Start 07/10/16 at 18:00 Dextrose (D50w Syringe) 25 ml Q15M PRN IV DECREASED GLUCOSE Last administered on 07/12/16 16:01; Admin Dose 25 ML; Start 07/10/16 at 18:00 Dextrose (D50w Syringe) 50 ml Q15M PRN IV DECREASED GLUCOSE; Start 07/10/16 at 18:00 Glucagon (Glucagen) 1 mg Q15M PRN IM DECREASED GLUCOSE; Start 07/10/16 at 18:00 Glucose (Glutose) 15 gm Q15M PRN BUCCAL DECREASED GLUCOSE; Start 07/10/16 at 18: 00 Acetaminophen (Tylenol Tab) 650 mg Q6H PRN PO PAIN LEVEL 1-3 OR FEVER; Start at 18:30 Acetaminophen (Tylenol Supp) 650 mg Q6H PRN [place] PAIN LEVEL 1-3 OR FEVER; Start 07/10/16 at 18:30 Acetaminophen/ Hydrocodone Bitart ([place] (5/325)) 1 tab Q6H PRN PO MODERATE PAIN LEVEL 4-6; Start 07/10/16 at 18:30 Docusate Sodium (Colace) 100 mg Q12H PRN PO CONSTIPATION; Start 07/10/16 at 18: 30 Magnesium Hydroxide (Milk Of Mag) 30 ml DAILY PRN PO CONSTIPATION; Start at 18:30 Bisacodyl (Dulcolax) 5 mg DAILY PRN PO CONSTIPATION; Start 07/10/16 at 18:30 Sodium Biphosphate/ Sodium Phosphate (Fleet Enema) 133 ml DAILY PRN [place] CONSTIPATION; Start 07/10/16 at 18:30 Zolpidem Tartrate (Ambien) 5 mg QHS PRN PO SLEEP; Start 07/10/16 at 18:30 Famotidine (Pepcid) 20 mg Q12 PO Last administered on 07/14/16 21:47; Admin Dose 20 MG; Start 07/10/16 at 21:00 Enoxaparin Sodium (Lovenox) 40 mg DAILY SC Last administered on 07/15/16 09:07 ; Admin Dose 40 MG; Start 07/11/16 at 09:00 Miscellaneous Information (Flu Vaccine Previously Dispensed) FLU VACCINE PREVIOU... NOTE PRN XX NOTE; Start 07/10/16 at 19:30 Acetaminophen (Tylenol Tab) 650 mg Q4H PRN PO NON-CARDIAC PAIN LEVEL (1-3); Start 07/12/16 at 12:30 Morphine Sulfate (morphine) 2 mg Q2H PRN IV FOR NON CARDIAC PAIN (4-10) Last administered on 07/15/16 05:40; Admin Dose 2 MG; Start 07/12/16 at 12:30 Al Hydrox/Mg Hydrox/Simethicone (Mag-Al Plus) 30 ml Q4H PRN PO GASTROINTESTINAL UPSET; Start 07/12/16 at 12:30 Ondansetron HCl (Zofran Inj) 4 mg Q4H PRN IV NAUSEA AND/OR VOMITING; Start 03/18 at 12:30 Diagnostic Test (Pha) (Accucheck) 1 ea 02 XX ; Start 07/14/16 at 02:00 NICHOL ACOSTA Jul 15, 2016 11:12
--- NOTE | 2016-07-15 12:13 | PDOCDIS ---
Discharge Instructions CONDITION Patient Condition: Stable HOME CARE INSTRUCTIONS: Diet Instructions: Reduced SodiumSpecial Diet: low fat/low chol ACTIVITY: Activity Restrictions: Avoid heavy lifting FOLLOW UP/APPOINTMENTS Appointments cardiology RAFAEL JUNIOR MD Jul 15, 2016 12:13
--- NOTE | 2016-07-15 12:31 | PN ---
Date/Time of Note Date/Time of Note DATE: 07/15/16 TIME: 12:28 Assessment/Plan VTE Prophylaxis VTE Prophylaxis Intervention: other Lines/Catheters IV Catheter Type (from Nrsg): Saline Lock Assessment/Plan Chief Complaint/Hosp Course Assessment/Plan Chest pain. 2. Rule out myocardial infarction. 3. Hypertension. 4. Diabetes mellitus. 5. The patient has a pacemaker placement. 6. History of coronary artery disease. 7. History of congestive heart failure. 8. History of coronary artery bypass graft. 9. History of anxiety. 10. History of insomnia. 11. History of chronic pain. 12 s/p cath plan per cardio [id number] cp s still noticing card f/u [id number] cleared by card dc am [id number] d/w daughter dc home f/roa pain mgt dr [place] saab snf placement if prefers Problems: Exam/Review of Systems Vital Signs Vitals Vital Signs Date Time Temp Pulse Resp B/P Pulse Ox O2 Delivery O2 Flow Rate FiO2 07/15/16 12:12 98.3 62 19 131/67 93 07/15/16 08:00 Nasal Cannula 2.0 Intake and Output 07/14/16 07/14/16 07/15/16 15:00 23:00 07:00 Intake Total 850 ml 800 ml Output Total 800 ml 575 ml Balance 50 ml 225 ml Exam Constitutional: alert Head: normocephalic Eyes: nl conjunctiva ENMT: nl external ears & nose Neck: supple Respiratory: clear to auscultation Cardiovascular: regular rate and rhythm Gastrointestinal: soft Extremities: normal pulses Results Result Diagram: 07/13/16 0536 07/14/16 0535 Results 24 hrs Laboratory Tests Test 07/14/16 18:12 07/14/16 20:23 07/15/16 03:17 07/15/16 07:47 Bedside Glucose 126 106 114 109 Test 07/15/16 11:45 Bedside Glucose 184 Medications Medications Current Medications Acetaminophen (Tylenol Tab) 500 mg Q6 PRN PO PAIN; Start 07/10/16 at 10:30 Alprazolam (Xanax) 0.5 mg Q8 PO Last administered on 07/15/16 06:12; Admin Dose 0.5 MG; Start 07/10/16 at 14:00 Amlodipine Besylate (Norvasc) 5 mg DAILY PO Last administered on 07/14/16 08: 56; Admin Dose 5 MG; Start 07/10/16 at 12:00 Aspirin (Halfprin) 81 mg DAILY PO Last administered on 07/15/16 09:09; Admin Dose 81 MG; Start 07/10/16 at 12:00 Atorvastatin Calcium (Lipitor) 40 mg HS PO Last administered on 07/13/16 20:49 ; Admin Dose 40 MG; Start 07/10/16 at 21:00 Baclofen (Lioresal) 10 mg BID PO Last administered on 07/15/16 09:39; Admin Dose 10 MG; Start 07/10/16 at 21:00 Carvedilol (Coreg) 12.5 mg BID PO Last administered on 07/15/16 09:11; Admin Dose 12.5 MG; Start 07/10/16 at 12:00 Clopidogrel Bisulfate (plaVIX) 75 mg DAILY PO Last administered on 07/15/16 09 :08; Admin Dose 75 MG; Start 07/10/16 at 12:00 Cyanocobalamin (Vitamin B12) 1,000 mcg DAILY PO Last administered on 07/15/16 09:06; Admin Dose 1,000 MCG; Start 07/11/16 at 09:00 Docusate Sodium (Colace) 100 mg TID PO Last administered on 07/15/16 09:09; Admin Dose 100 MG; Start 07/10/16 at 13:00 Gabapentin (Neurontin) 300 mg BID PO Last administered on 07/15/16 09:09; Admin Dose 300 MG; Start 07/10/16 at 12:00 Ibuprofen (Motrin) 800 mg BID PO Last administered on 07/14/16 08:55; Admin Dose 800 MG; Start 07/10/16 at 12:00 Insulin Human Isoph/Insulin Regular (Humulin 70/30) 15 units AM SC Last administered on 07/14/16 08:59; Admin Dose 15 UNITS; Start 07/11/16 at 09:00 Losartan Potassium (Cozaar) 50 mg Q12 PO Last administered on 07/14/16 21:47; Admin Dose 50 MG; Start 07/10/16 at 12:00 Meclizine HCl (Antivert) 25 mg TID PRN PO VERTIGO; Start 07/10/16 at 10:30 Morphine Sulfate (Ms Contin (Er)) 15 mg Q6 PO Last administered on 07/15/16 06 :23; Admin Dose 15 MG; Start 07/10/16 at 12:00 Nitroglycerin (Nitroglycerin (Sl Tab) 0.4 Mg) 1 tab Q5M PRN SL CHEST PAIN Last administered on 07/14/16 21:48; Admin Dose 1 TAB; Start 07/10/16 at 10:30 Pantoprazole (Protonix Tab) 40 mg DAILY@06 PO Last administered on 07/14/16 05 :18; Admin Dose 40 MG; Start 07/11/16 at 06:00 Phenytoin (Dilantin) 300 mg HS PO Last administered on 07/13/16 20:51; Admin Dose 300 MG; Start 07/10/16 at 21:00 Ranolazine (Ranexa) 1,000 mg Q12 PO Last administered on 07/15/16 09:06; Admin Dose 1,000 MG; Start 07/10/16 at 21:00 Zolpidem Tartrate (Ambien) 10 mg HS PRN PO INSOMNIA Last administered on 02:32; Admin Dose 10 MG; Start 07/10/16 at 10:30 Hydromorphone HCl (Dilaudid) 0.5 mg Q4 PRN IV SEVERE PAIN LEVEL 7-10 Last administered on 07/13/16 20:55; Admin Dose 0.5 MG; Start 07/10/16 at 14:30 Isosorbide Mononitrate (Imdur) 90 mg DAILY PO Last administered on 07/14/16 08 :55; Admin Dose 90 MG; Start 07/11/16 at 09:00 Miscellaneous Information 1 ea NOTE XX ; Start 07/10/16 at 18:00 Glucose (Glutose) 15 gm Q15M PRN PO DECREASED GLUCOSE; Start 07/10/16 at 18:00 Glucose (Glutose) 22.5 gm Q15M PRN PO DECREASED GLUCOSE; Start 07/10/16 at 18:00 Dextrose (D50w Syringe) 25 ml Q15M PRN IV DECREASED GLUCOSE Last administered on 07/12/16 16:01; Admin Dose 25 ML; Start 07/10/16 at 18:00 Dextrose (D50w Syringe) 50 ml Q15M PRN IV DECREASED GLUCOSE; Start 07/10/16 at 18:00 Glucagon (Glucagen) 1 mg Q15M PRN IM DECREASED GLUCOSE; Start 07/10/16 at 18:00 Glucose (Glutose) 15 gm Q15M PRN BUCCAL DECREASED GLUCOSE; Start 07/10/16 at 18: 00 Acetaminophen (Tylenol Tab) 650 mg Q6H PRN PO PAIN LEVEL 1-3 OR FEVER; Start at 18:30 Acetaminophen (Tylenol Supp) 650 mg Q6H PRN [place] PAIN LEVEL 1-3 OR FEVER; Start 07/10/16 at 18:30 Acetaminophen/ Hydrocodone Bitart ([place] (5/325)) 1 tab Q6H PRN PO MODERATE PAIN LEVEL 4-6; Start 07/10/16 at 18:30 Docusate Sodium (Colace) 100 mg Q12H PRN PO CONSTIPATION; Start 07/10/16 at 18: 30 Magnesium Hydroxide (Milk Of Mag) 30 ml DAILY PRN PO CONSTIPATION; Start at 18:30 Bisacodyl (Dulcolax) 5 mg DAILY PRN PO CONSTIPATION; Start 07/10/16 at 18:30 Sodium Biphosphate/ Sodium Phosphate (Fleet Enema) 133 ml DAILY PRN [place] CONSTIPATION; Start 07/10/16 at 18:30 Zolpidem Tartrate (Ambien) 5 mg QHS PRN PO SLEEP; Start 07/10/16 at 18:30 Famotidine (Pepcid) 20 mg Q12 PO Last administered on 07/14/16 21:47; Admin Dose 20 MG; Start 07/10/16 at 21:00 Enoxaparin Sodium (Lovenox) 40 mg DAILY SC Last administered on 07/15/16 09:07 ; Admin Dose 40 MG; Start 07/11/16 at 09:00 Miscellaneous Information (Flu Vaccine Previously Dispensed) FLU VACCINE PREVIOU... NOTE PRN XX NOTE; Start 07/10/16 at 19:30 Acetaminophen (Tylenol Tab) 650 mg Q4H PRN PO NON-CARDIAC PAIN LEVEL (1-3); Start 07/12/16 at 12:30 Morphine Sulfate (morphine) 2 mg Q2H PRN IV FOR NON CARDIAC PAIN (4-10) Last administered on 07/15/16 05:40; Admin Dose 2 MG; Start 07/12/16 at 12:30 Al Hydrox/Mg Hydrox/Simethicone (Mag-Al Plus) 30 ml Q4H PRN PO GASTROINTESTINAL UPSET; Start 07/12/16 at 12:30 Ondansetron HCl (Zofran Inj) 4 mg Q4H PRN IV NAUSEA AND/OR VOMITING; Start 03/18 at 12:30 Diagnostic Test (Pha) (Accucheck) 1 ea 02 XX ; Start 07/14/16 at 02:00 RAFAEL JUNIOR MD Jul 15, 2016 12:31
[2016-07-16] MEDS ORDERED: INSU100I22 SC (08:13)
[2016-07-16] MEDS ORDERED: ASPI81TA3 PO (08:14)
== END 2016-07-15 20:45 | disposition home health service (06) | DRG 286 ==
LOC: E/R 23:12 → TEL 07-10 01:07
PROVIDERS: ADMIT Internal Medicine Nephrology; ATTEND Internal Medicine Nephrology
PROC: 4A023N8 Measurement of Cardiac Sampling and Pressure, Bilateral, Percutaneous Approach (ICD-10-PCS; principal; 2016-07-12)
PROC: B2111ZZ Fluoroscopy of Multiple Coronary Arteries using Low Osmolar Contrast (ICD-10-PCS; 2016-07-12)
PROC: B2151ZZ Fluoroscopy of Left Heart using Low Osmolar Contrast (ICD-10-PCS; 2016-07-12)
PROC: B3101ZZ Fluoroscopy of Thoracic Aorta using Low Osmolar Contrast (ICD-10-PCS; 2016-07-12)
DX: I25.10 Atherosclerotic heart disease of native coronary artery without angina pectoris (principal); I50.23 Acute on chronic systolic (congestive) heart failure; I10 Essential (primary) hypertension; D64.9 Anemia, unspecified; E78.5 Hyperlipidemia, unspecified; E11.9 Type 2 diabetes mellitus without complications; G40.909 Epilepsy, unspecified, not intractable, without status epilepticus; Z95.0 Presence of cardiac pacemaker
CPT/HCPCS: 36415; 71010; 80048; 80053; 80061; 82550; 82553; 82962; 83880; 84484; 85025; 85610; 85730; 93005; 93461; 96361; 96374; 96375; 96376; 97162; C1769; C1887; C1894; J1170; J1644; J1650; J1815; J1940; J2250; J2270; J2405; J3010; J7030; J7040; Q9967

== ENCOUNTER 2016-07-16 00:21 | Emergency (ER) | payer OTHER ==
[~2016-07-16] VITALS: Ht 172.7 cm; Wt 72.7 kg
[~2016-07-16 00:21] MED LIST changes: -BLOO-1030 MC; -IBUP800T25 PO
[2016-07-16 00:27] VITALS: Ht 172.7 cm; Wt 72.7 kg
[2016-07-16] MEDS ORDERED: ONDANSETRON 4 MG INJ IV STA (00:35)
[2016-07-16] MEDS ORDERED: morphine 4 MG/ML VIAL IV STA (00:35)
[2016-07-16 00:58] LABS: BASOPHILS % 0.5 % (0.0-2.0); EOSINOPHILS # 0.2 10^3/ul (0.0-0.5); EOSINOPHILS % 2.6 % (0.0-7.0); HEMATOCRIT 41.4 % (42.0-52.0); HEMOGLOBIN 14.1 g/dl (14.0-18.0); LYMPHOCYTES # 1.9 10^3/ul (0.8-2.9); LYMPHOCYTES % 23.1 % (15.0-51.0); MEAN CORPUSCULAR HEMOGLOBIN 30.2 pg (29.0-33.0); MEAN CORPUSCULAR VOLUME 88.8 fl (82.0-101.0); MEAN PLATELET VOLUME 8.6 fl (7.4-10.4); MONOCYTE # 1.2 10^3/ul (0.3-0.9); MONOCYTES % 14.1 % (0.0-11.0); NEUTROPHIL # 4.9 10^3/ul (1.6-7.5); NEUTROPHILS % 59.7 % (39.0-77.0); PLATELET COUNT 199 10^3/UL (140-440); RED BLOOD COUNT 4.67 10^6/ul (4.70-6.10); RED CELL DISTRIBUTION WIDTH 14.4 % (11.5-14.5); UNCORRECTED WBC 8.2 10^3/ul (4.8-10.8); WHITE BLOOD COUNT 8.2 10^3/ul (4.8-10.8)
[2016-07-16 00:59] LABS: CONDITION 1
[2016-07-16 01:05] LABS: ALBUMIN 4.1 g/dl (3.3-4.9); INR 1.09; POTASSIUM 3.9 mmol/L (3.5-5.1); PROTIME 14.1 Sec (12.2-14.2); PT RATIO 1.1
[2016-07-16 01:06] LABS: PARTIAL THROMBOPLASTIN TIME 33.2 Sec (25.0-35.0)
[2016-07-16 01:07] LABS: CREATININE 0.82 mg/dl (0.61-1.24)
[2016-07-16 01:08] LABS: ALBUMIN/GLOBULIN RATIO 1.05; BILIRUBIN,INDIRECT 0.5 mg/dl (0-1.1); BILIRUBIN,TOTAL 0.5 mg/dl (0.2-1.3)
[2016-07-16 01:09] LABS: CALCIUM 9.2 mg/dl (8.4-10.2)
[2016-07-16 01:25] LABS: TROPONIN-I 0.732 ng/ml (0.00-0.12)
--- NOTE | 2016-07-16 01:37 | RADRPT ---
PROCEDURE: CHEST - 1 VIEW CLINICAL INDICATION: 56-year-old male with chest pain. TECHNIQUE: A single frontal AP semi-erect view of the chest was performed portably. The images we re reviewed on a PACS workstation. COMPARISON: Chest x-ray July 12, 2016. FINDINGS: There is a left-sided dual chamber pacemaker. The patient has had a prior median sternotomy. The c ardiomediastinal silhouette is mildly enlarged. Coronary artery calcifications are noted. The thor acic aortic arch is calcified. There is mild left basilar subsegmental atelectasis and/or scarring. There is no evidence for an infiltrate. There is no evidence for congestive heart failure. There is no evidence for pneumothorax. IMPRESSION: 1. Left-sided dual chamber pacemaker. 2. Status post median sternotomy. 3. Cardiomegaly with coronary artery calcifications. 4. Calcified thoracic aortic arch. 5. Mild left basilar subsegmental atelectasis and/or scarring. .Eliseo Dey MD, MD Date Time Electronically viewed and signed by .Eliseo Dey MD, on 07/16/2016 01:37 .M/
--- NOTE | 2016-07-16 02:08 | ERA ---
ER Documentation Chief Complaint Date/Time DATE: 07/16/16 TIME: 02:07 Chief Complaint BIB RA. CP X 6 DAYS 162MG ASA AND 2 NITRO SPRAY GIVEN INEFFECTIVE. HPI There is a 56-year-old male brought in by rescue for complains of chest pain for 6 days. Given aspirin and nitro in the field with minimal effect. Pain is pressure-like, substernal, and not exertional or positional. No alleviating or exacerbating factors. Mild to moderate intensity. Patient has history of diagnosed acute coronary syndrome. ROS All systems reviewed and are negative except as per history of present illness. Medications Home Meds Active Scripts [place]-3 Fatty Acids/Fish Oil (Fish Oil 1,000 mg Capsule) 1 Each Capsule, 1 EACH PO BID for 28 Days, CAP Prov:CARLOS MARTINEZ MD 06/18/16 Ranolazine* (Ranexa*) 500 Mg Tabsr, 1000 MG PO Q12 for 30 Days, TAB Prov:CARLOS MARTINEZ MD 05/02/15 Phenytoin* Sodium Extended (Dilantin*) 300 Mg Capsule, 300 MG PO HS, #30 CAP Prov:ALIZA CUENCA MD 12/22/14 Ranolazine* (Ranexa*) 500 Mg Tabsr, 500 MG PO Q12, #60 TAB Prov:ALIZA CUENCA MD 12/22/14 Pantoprazole (Protonix) 40 Mg Tabec, 40 MG PO DAILY@06, #30 TAB Prov:ALIZA CUENCA MD 12/22/14 Nitroglycerin* (Nitrostat*) 25 Tab Subl, 1 TAB SL Q5M Y for CHEST PAIN, #90 TAB Prov:ALIZA CUENCA MD 12/22/14 Losartan Potassium* (Cozaar*) 50 Mg Tab, 50 MG PO Q12, #60 TAB Prov:ALIZA CUENCA MD 12/22/14 Albuterol/Ipratropium* (Combivent Respimat*) 20-100 Mcg/Inh - 4 Gm Aer.w.adap, 2 PUFF IH QID, #1 INH Prov:ALIZA CUENCA MD 05/31/14 Reported Medications Cyanocobalamin* (Vitamin B-12*) 1,000 Mcg Tablet.sa, 1000 MCG PO DAILY, TAB 06/16/16 Docusate Sodium* (Docusate Sodium*) 100 Mg Capsule, 100 MG PO TID, #60 CAP 06/16/16 Baclofen* (Baclofen*) 10 Mg Tablet, 10 MG PO BID, TAB 06/16/16 Morphine Sulfate* (Ms Contin*) 15 Mg Tablet.sa, 15 MG PO Q6, TAB.SA 06/16/16 Gabapentin* (Gabapentin*) 300 Mg Capsule, 300 MG PO BID, #60 CAP 06/16/16 Isosorbide Mononitrate* (Isosorbide Mononitrate*) 60 Mg Tab.er.24h, 60 MG PO DAILY, TAB 04/27/15 Atorvastatin* (Atorvastatin*) 40 Mg Tablet, 40 MG PO HS, TAB 12/18/14 Furosemide* (Furosemide*) 40 Mg Tablet, 40 MG PO DAILY, TAB 05/18/14 Alprazolam* (Alprazolam*) 0.5 Mg Tablet, 0.5 MG PO Q8 for ANXIETY, TAB 05/18/14 Clopidogrel Bisulfate (Clopidogrel) 75 Mg Tablet, 75 MG PO DAILY, TAB 04/26/14 Acetaminophen (Mapap) 500 Mg Capsule, 500 MG PO Q6 Y for PAIN, CAP 04/26/14 Meclizine Hcl* (Meclizine Hcl*) 25 Mg Tablet, 25 MG PO TID Y for VERTIGO, TAB 04/26/14 Carvedilol* (Carvedilol*) 12.5 Mg Tablet, 12.5 MG PO BID, TAB 04/26/14 Metformin Hcl* (Metformin Hcl*) 1,000 Mg Tablet, 1000 MG PO BID, TAB 04/26/14 Aspirin* (Aspirin* (EC)) 81 Mg Tablet.dr, 81 MG PO DAILY, TAB 04/26/14 Glimepiride* (Glimepiride*) 1 Mg Tablet, 1 MG PO DAILY, TAB 04/26/14 Zolpidem Tartrate* (Zolpidem Tartrate*) 10 Mg Tablet, 10 MG PO HS Y for INSOMNIA , TAB 04/26/14 Amlodipine Besylate* (Amlodipine Besylate*) 5 Mg Tablet, 5 MG PO DAILY, TAB 04/26/14 Insulin Lispro (Humalog) 100 U/Ml Cartridge, 0 SC SLIDING SCALE AC, EA 04/26/14 Insulin Isophan/Regular (Humulin 70/30) 100 Units/Ml Susp, 15 UNIT SC PM, EA 04/26/14 Insulin Isophan/Regular (Humulin 70/30) 100 Units/Ml Susp, 15 UNIT SC AM, EA 04/26/14 Discontinued Reported Medications Blood Sugar Diagnostic (FREESTYLE LITE TEST STRIPS) 1 Each Strip, 1 EACH MC QID , STRIP 04/26/14 Discontinued Scripts Ibuprofen* (Ibuprofen*) 800 Mg Tablet, 800 MG PO BID for 7 Days, TAB Prov:CARLOS MARTINEZ MD 06/18/16 Allergies Allergies: Coded Allergies: sumatriptan (Verified Allergy, Unknown, 07/14/16) sumatriptan succinate (Verified Allergy, Unknown, 07/14/16) venlafaxine HCl (Verified Allergy, Unknown, 07/14/16) PMhx/Soc History of Surgery: Yes (CABG 2007, pacemaker) Anesthesia Reaction: No Hx Neurological Disorder: Yes (migraines) Hx Respiratory Disorders: No Hx Cardiac Disorders: Yes (ME) Hx Psychiatric Problems: Yes (depression, anxiety) Hx Miscellaneous Medical Probl: Yes (CAD, CABG, pacemaker, GOOD, PTCA, Anxiety, insomnia, possible seizure) Hx Alcohol Use: No Hx Substance Use: No Hx Tobacco Use: No Smoking Status: Never smoker Physical Exam Vitals Vital Signs Date Time Temp Pulse Resp B/P Pulse Ox O2 Delivery O2 Flow Rate FiO2 07/16/16 00:38 Nasal Cannula 2 07/16/16 00:27 97.8 60 23 147/78 95 Physical Exam Const: [] Head: Atraumatic Eyes: Normal Conjunctiva ENT: Normal External Ears, Nose and Mouth. Neck: Full range of motion..~ No meningismus. Resp: Clear to auscultation bilaterally Cardio: Regular rate and rhythm, no murmurs Abd: Soft, non tender, non distended. Normal bowel sounds Skin: No petechiae or rashes Back: No midline or flank tenderness Ext: No cyanosis, or edema Neur: Awake and alert Psych: Normal Mood and Affect Result Diagram: 07/16/164107/16/1641 Results 24 hrs Laboratory Tests Test 07/16/16 00:42 Activated Partial Thromboplast Time 33.2Sec Alanine Aminotransferase (ALT/SGPT) 13IU/L Albumin 4.1g/dl Albumin/Globulin Ratio 1.05 Alkaline Phosphatase 76IU/L Anion Gap 17 Aspartate Amino Transf (AST/SGOT) 30IU/L B-Type Natriuretic Peptide 1430PG/ML Basophils # 0.010^3/ul Basophils % 0.5% Blood Urea Nitrogen 27mg/dl Calcium Level 9.2mg/dl Carbon Dioxide Level 31mmol/L Chloride Level 94mmol/L Creatinine 0.82mg/dl Direct Bilirubin 0.00mg/dl Eosinophils # 0.210^3/ul Eosinophils % 2.6% Globulin 3.90g/dl Glucose Level 116mg/dl Hematocrit 41.4% Hemoglobin 14.1g/dl INR International Normalized Ratio 1.09 Indirect Bilirubin 0.5mg/dl Lymphocytes # 1.910^3/ul Lymphocytes % 23.1% Mean Corpuscular Hemoglobin 30.2pg Mean Corpuscular Hemoglobin Concent 34.0g/dl Mean Corpuscular Volume 88.8fl Mean Platelet Volume 8.6fl Monocytes # 1.210^3/ul Monocytes % 14.1% Neutrophils # 4.910^3/ul Neutrophils % 59.7% Nucleated Red Blood Cells # 0.010^3/ul Nucleated Red Blood Cells % 0.0/100WBC Platelet Count 63048^3/UL Potassium Level 3.9mmol/L Prothrombin Time 14.1Sec Prothrombin Time Ratio 1.1 Red Blood Count 4.6710^6/ul Red Cell Distribution Width 14.4% Sodium Level 138mmol/L Total Bilirubin 0.5mg/dl Total Protein 8.0g/dl Troponin I 0.732ng/ml White Blood Count 8.210^3/ul Current Medications Medications (Trade) Dose Ordered Sig/Cecil Route PRN Reason Start Time Stop Time Status Last Admin Dose Admin Morphine Sulfate (morphine) 4 mg ONCE STAT IV 07/16/16 00:35 07/16/16 00:52 DC 07/16/16 00:58 Ondansetron HCl (Zofran Inj) 4 mg ONCE STAT IV 07/16/16 00:35 07/16/16 00:52 DC 07/16/16 00:58 Procedures/MDM EKG: Rate/Rhythm: [Normal Sinus Rhythm] QRS, ST, T-waves: [No changes consistent w/ acute ischemia] Impression: [No evidence of ischemia or arrhythmia] Chest X-ray 1V Interpreted by me: Soft Tissue: No acute abnormalities Bones: No acute abnormalities Mediastinum/Cardiac Silhouette/Lungs: [No acute abnormalities] Patient's symptoms are concerning for cardiac cause will require inpatient workup and continuous monitoring. Further w/u for ischemia, arrhythmia, PE or dissection will be deferred to the inpatient team. Accepting Care Team: Current data and ongoing care discussed. Time: 145 Primary Provider: Hospitalist Consulting: [XOXOXO] Outstanding Data: none Departure Diagnosis: Primary Impression: Chest pain Qualified Code: I20.9 - Ischemic chest pain Additional Impression: Non-STEMI (non-ST elevated myocardial infarction) Condition: Serious RACHEL AZUL Jul 16, 2016 02:08
[2016-07-16] MEDS ORDERED: INSU100I22 SC (08:13)
[2016-07-16] MEDS ORDERED: ASPI81TA3 PO (08:14)
[2016-07-16] MEDS ORDERED: GLUCAGON 1 MG INJ IM PRN (13:00)
[2016-07-16] MEDS ORDERED: GLUCOSE GEL 15 GRAM TUBE PO PRN ×2 (13:00)
[2016-07-16] MEDS ORDERED: GLUCOSE GEL 15 GRAM TUBE BUCCAL PRN (13:00)
[2016-07-16] MEDS ORDERED: DEXTROSE 50% 50 ML SYRINGE IV PRN ×2 (13:00)
[2016-07-16 16:00] VITALS: BP 149/74; PULSE 60; RESP 20; TEMP 98
[2016-07-16] MEDS ORDERED: INSULIN ASPART [NOVOLOG] 3 ML PEN SC SCH (18:00)
--- NOTE | 2016-07-16 18:09 | HP ---
Date/Time of Note Date/Time of Note DATE: 07/16/16 TIME: 18:02 Assessment/Plan VTE Prophylaxis VTE Prophylaxis Intervention: other Lines/Catheters IV Catheter Type (from Nrsg): Saline Lock Assessment/Plan Problems: (1) Chest pain Status: Acute Qualifiers: Chest pain type: chest pain due to myocardial ischemia Qualified Code: I20.9 - Ischemic chest pain Assessment/Plan in er monitoring for ekg /trop if neg and cleared by card dc home HPI/ROS Admit Date/Time Admit Date/Time Hx of Present Illness pt dcd yesterday to snf came back as he was experiencing chest pain ROS Constitutional: fatigue Eyes: no complaints ENT: no complaints Respiratory: no complaints Cardiovascular: chest pain Skin: erythema, no complaints Neurologic: no complaints PMH/Family/Social Past Medical History Medical History: angina, cancer, coronary artery disease Past Surgical History Past Surgical Hx: angioplasty Family History Significant Family History: no pertinent family hx Social History Alcohol Use: none Smoking Status: Never smoker Drug Use: none Exam/Review of Systems Vital Signs Vitals Vital Signs Date Time Temp Pulse Resp B/P Pulse Ox O2 Delivery O2 Flow Rate FiO2 07/16/16 16:00 98.0 60 20 149/74 Nasal Cannula 2.0 07/16/16 10:04 98 Exam Constitutional: alert, oriented Head: atraumatic Eyes: nl conjunctiva ENMT: nl external ears & nose Neck: non-tender, supple Respiratory: clear to auscultation, normal air movement Cardiovascular: nl pulses, regular rate and rhythm Gastrointestinal: soft Musculoskeletal: nl extremities to inspection Extremities: normal pulses Neurological: CORRECTIONAL CORPORAL II-XII intact, nl mental status Skin: nl turgor (///) Labs Result Diagram: 07/16/16 0042 07/16/16 0042 Medications Medications Current Medications Miscellaneous Information 1 ea NOTE XX ; Start 07/16/16 at 13:00 Glucose (Glutose) 15 gm Q15M PRN PO DECREASED GLUCOSE; Start 07/16/16 at 13:00 Glucose (Glutose) 22.5 gm Q15M PRN PO DECREASED GLUCOSE; Start 07/16/16 at 13: 00 Dextrose (D50w Syringe) 25 ml Q15M PRN IV DECREASED GLUCOSE; Start 07/16/16 at 13:00 Dextrose (D50w Syringe) 50 ml Q15M PRN IV DECREASED GLUCOSE; Start 07/16/16 at 13:00 Glucagon (Glucagen) 1 mg Q15M PRN IM DECREASED GLUCOSE; Start 07/16/16 at 13:00 Glucose (Glutose) 15 gm Q15M PRN BUCCAL DECREASED GLUCOSE; Start 07/16/16 at 13 :00 RAFAEL JUNIOR MD Jul 16, 2016 18:09
--- NOTE | 2016-07-16 18:11 | PDOCDIS ---
Discharge Instructions CONDITION Patient Condition: Fair HOME CARE INSTRUCTIONS: Diet Instructions: Low Fat /Cholesterol ACTIVITY: Activity Restrictions: Avoid heavy lifting FOLLOW UP/APPOINTMENTS Appointments cardiology RAFAEL JUNIOR MD Jul 16, 2016 18:10
--- NOTE | 2016-07-16 18:17 | DS ---
Date/Time of Note Date/Time of Note DATE: 07/16/16 TIME: 18:13 Discharge Summary Admission/Discharge Info Admit Date/Time Discharge Date/Time Final Diagnosis atypical chest pain Patient Condition: Fair Hx of Present Illness pt dcd yesterday to snf came back as he was experiencing chest pain Hospital Course trop monitored ekg neg cleared by card Home Meds Active Scripts [place]-3 Fatty Acids/Fish Oil (Fish Oil 1,000 mg Capsule) 1 Each Capsule, 1 EACH PO BID for 28 Days, CAP Prov:CARLOS MARTINEZ MD 06/18/16 Ranolazine* (Ranexa*) 500 Mg Tabsr, 1000 MG PO Q12 for 30 Days, TAB Prov:CARLOS MARTINEZ MD 05/02/15 Phenytoin* Sodium Extended (Dilantin*) 300 Mg Capsule, 300 MG PO HS, #30 CAP Prov:ALIZA CUENCA MD 12/22/14 Pantoprazole (Protonix) 40 Mg Tabec, 40 MG PO DAILY@06, #30 TAB Prov:ALIZA CUENCA MD 12/22/14 Nitroglycerin* (Nitrostat*) 25 Tab Subl, 1 TAB SL Q5M Y for CHEST PAIN, #90 TAB Prov:ALIZA CUENCA MD 12/22/14 Losartan Potassium* (Cozaar*) 50 Mg Tab, 50 MG PO Q12, #60 TAB Prov:ALIZA CUENCA MD 12/22/14 Reported Medications Aspirin* (Aspirin* Chew) 81 Mg Tab.chew, 81 MG PO DAILY, TAB.CHEW 07/16/16 Insulin Aspart (Novolog FlexPen) 100 Unit/1 Ml Insuln.pen, 0 SC SLIDING SCALE ACHS, EA 07/16/16 Cyanocobalamin* (Vitamin B-12*) 1,000 Mcg Tablet.sa, 1000 MCG PO DAILY, TAB 06/16/16 Baclofen* (Baclofen*) 10 Mg Tablet, 10 MG PO BID, TAB 06/16/16 Morphine Sulfate* (Ms Contin*) 15 Mg Tablet.sa, 15 MG PO Q6, TAB.SA 06/16/16 Gabapentin* (Gabapentin*) 300 Mg Capsule, 300 MG PO BID, #60 CAP 06/16/16 Isosorbide Mononitrate* (Isosorbide Mononitrate*) 60 Mg Tab.er.24h, 90 MG PO DAILY, TAB 04/27/15 Atorvastatin* (Atorvastatin*) 40 Mg Tablet, 40 MG PO HS, TAB 12/18/14 Furosemide* (Furosemide*) 40 Mg Tablet, 40 MG PO BID, TAB 05/18/14 Alprazolam* (Alprazolam*) 0.5 Mg Tablet, 0.5 MG PO Q8 for ANXIETY, TAB 05/18/14 Clopidogrel Bisulfate (Clopidogrel) 75 Mg Tablet, 75 MG PO DAILY, TAB 04/26/14 Meclizine Hcl* (Meclizine Hcl*) 25 Mg Tablet, 25 MG PO TID Y for VERTIGO, TAB 04/26/14 Carvedilol* (Carvedilol*) 12.5 Mg Tablet, 12.5 MG PO BID, TAB 04/26/14 Metformin Hcl* (Metformin Hcl*) 1,000 Mg Tablet, 1000 MG PO BID, TAB 04/26/14 Amlodipine Besylate* (Amlodipine Besylate*) 5 Mg Tablet, 5 MG PO DAILY, TAB 04/26/14 Insulin Isophan/Regular (Humulin 70/30) 100 Units/Ml Susp, 15 UNIT SC PM, EA 04/26/14 Insulin Isophan/Regular (Humulin 70/30) 100 Units/Ml Susp, 15 UNIT SC AM, EA 04/26/14 Discontinued Reported Medications Docusate Sodium* (Docusate Sodium*) 100 Mg Capsule, 100 MG PO TID, #60 CAP 06/16/16 Acetaminophen (Mapap) 500 Mg Capsule, 500 MG PO Q6 Y for PAIN, CAP 04/26/14 Glimepiride* (Glimepiride*) 1 Mg Tablet, 1 MG PO DAILY, TAB 04/26/14 Zolpidem Tartrate* (Zolpidem Tartrate*) 10 Mg Tablet, 10 MG PO HS Y for INSOMNIA , TAB 04/26/14 Insulin Lispro (Humalog) 100 U/Ml Cartridge, 0 SC SLIDING SCALE AC, EA 04/26/14 Blood Sugar Diagnostic (FREESTYLE LITE TEST STRIPS) 1 Each Strip, 1 EACH MC QID , STRIP 04/26/14 Discontinued Scripts Ranolazine* (Ranexa*) 500 Mg Tabsr, 500 MG PO Q12, #60 TAB Prov:ALIZA CUENCA MD 12/22/14 Albuterol/Ipratropium* (Combivent Respimat*) 20-100 Mcg/Inh - 4 Gm Aer.w.adap, 2 PUFF IH QID, #1 INH Prov:ALIZA CUENCA MD 05/31/14 Ibuprofen* (Ibuprofen*) 800 Mg Tablet, 800 MG PO BID for 7 Days, TAB Prov:CARLOS MARTINEZ MD 06/18/16 Pending Labs Laboratory Tests Test 07/16/16 00:42 07/16/16 13:37 07/16/16 15:40 Activated Partial Thromboplast Time 33.2Sec (25.0-35.0) Alanine Aminotransferase (ALT/SGPT) 13IU/L (13-69) Albumin 4.1g/dl (3.3-4.9) Albumin/Globulin Ratio 1.05 Alkaline Phosphatase 76IU/L (42-121) Anion Gap 17 (8-16) Aspartate Amino Transf (AST/SGOT) 30IU/L (15-46) B-Type Natriuretic Peptide 1430PG/ML (0-125) Basophils # 0.010^3/ul (0.0-0.1) Basophils % 0.5% (0.0-2.0) Blood Urea Nitrogen 27mg/dl (7-20) Calcium Level 9.2mg/dl (8.4-10.2) Carbon Dioxide Level 31mmol/L (21-31) Chloride Level 94mmol/L (97-110) Creatinine 0.82mg/dl (0.61-1.24) Direct Bilirubin 0.00mg/dl (0.00-0.20) Eosinophils # 0.210^3/ul (0.0-0.5) Eosinophils % 2.6% (0.0-7.0) Globulin 3.90g/dl (1.3-3.2) Glucose Level 116mg/dl (70-220) Hematocrit 41.4% (42.0-52.0) Hemoglobin 14.1g/dl (14.0-18.0) INR International Normalized Ratio 1.09 Indirect Bilirubin 0.5mg/dl (0-1.1) Lymphocytes # 1.910^3/ul (0.8-2.9) Lymphocytes % 23.1% (15.0-51.0) Mean Corpuscular Hemoglobin 30.2pg (29.0-33.0) Mean Corpuscular Hemoglobin Concent 34.0g/dl (32.0-37.0) Mean Corpuscular Volume 88.8fl (82.0-101.0) Mean Platelet Volume 8.6fl (7.4-10.4) Monocytes # 1.210^3/ul (0.3-0.9) Monocytes % 14.1% (0.0-11.0) Neutrophils # 4.910^3/ul (1.6-7.5) Neutrophils % 59.7% (39.0-77.0) Nucleated Red Blood Cells # 0.010^3/ul (0.0-0.0) Nucleated Red Blood Cells % 0.0/100WBC (0.0-0.0) Platelet Count 68610^3/UL (140-440) Potassium Level 3.9mmol/L (3.5-5.1) Prothrombin Time 14.1Sec (12.2-14.2) Prothrombin Time Ratio 1.1 Red Blood Count 4.6710^6/ul (4.70-6.10) Red Cell Distribution Width 14.4% (11.5-14.5) Sodium Level 138mmol/L (135-144) Total Bilirubin 0.5mg/dl (0.2-1.3) Total Protein 8.0g/dl (6.1-8.1) Troponin I 0.732ng/ml (0.00-0.12) 0.472ng/ml (0.00-0.12) White Blood Count 8.210^3/ul (4.8-10.8) Bedside Glucose 153mg/dL (70-220) RAFAEL JUNIOR MD Jul 16, 2016 18:17
[2016-07-16] MEDS ORDERED: LORAZEPAM 2 MG INJ ONE (18:55)
== END 2016-07-16 17:30 | disposition left against medical advice (07) ==
LOC: E/R 00:21
DX: I20.9 Angina pectoris, unspecified (principal); I21.4 Non-ST elevation (NSTEMI) myocardial infarction; E11.9 Type 2 diabetes mellitus without complications; Z79.4 Long term (current) use of insulin; Z79.82 Long term (current) use of aspirin; Z95.1 Presence of aortocoronary bypass graft; Z95.0 Presence of cardiac pacemaker; Z79.84 Long term (current) use of oral hypoglycemic drugs
CPT/HCPCS: 36415; 71010; 80053; 82962; 83880; 84484; 85025; 85610; 85730; 93005; 96374; 96375; J1815; J2060; J2270; J2405; Z7502

== ENCOUNTER 2016-08-15 00:23 | Inpatient (IN) | payer OTHER ==
[2016-08-15] VITALS (9 sets, daily range): BP systolic 96–138; BP diastolic 55–72; PULSE 60–61; RESP 15–21; Ht 170.2 cm; Wt 77.2 kg
[~2016-08-15] VITALS: Ht 170.2 cm; Wt 77.2 kg
[~2016-08-15 00:23] MED LIST changes: -ACET500C3 PO; -ASPI-664 PO; +ASPI81TA3 PO; -DOCU-159 PO; -GLIM1TAB2 PO; -INSU100C SC; +INSU100I22 SC; -IPRA4AER IH; -ZOLP10TA5 PO
--- NOTE | 2016-08-15 00:28 | ERA ---
ER Documentation Chief Complaint Date/Time DATE: 08/15/16 TIME: 00:27 Chief Complaint Chest pain HPI The patient is a 56-year-old male, presenting to the ER because of acute chest pain that began about 11 PM. It is uncertain whether he had transient weakness before the chest pain. He was treated with one nitroglycerin by the executive staff assistant he mostly complains of chest pain, headache, denies dyspnea, abdominal pain, vomiting, dysuria, diarrhea. I was able to talk to the daughter who arrived later and confirmed that he did have similar chest pain previously, usually relieved with Dilaudid and morphine. He is a very poor historian. The patient was initially somewhat confused according to the daughter, however he became himself later in the ER; he denies chest pain with exertion or vomiting or diaphoresis. Past medical history: CAD, history of CHF, hypertension, anemia, dyslipidemia, diabetes mellitus, anxiety Past surgical history: CABG, stent PCI ROS All systems reviewed and are negative except as per history of present illness. Medications Home Meds Active Scripts [place]-3 Fatty Acids/Fish Oil (Fish Oil 1,000 mg Capsule) 1 Each Capsule, 1 EACH PO BID for 28 Days, CAP Prov:CARLOS MARTINEZ MD 06/18/16 Ranolazine* (Ranexa*) 500 Mg Tabsr, 1000 MG PO Q12 for 30 Days, TAB Prov:CARLOS MARTINEZ MD 05/02/15 Phenytoin* Sodium Extended (Dilantin*) 300 Mg Capsule, 300 MG PO HS, #30 CAP Prov:ALIZA CUENCA MD 12/22/14 Pantoprazole (Protonix) 40 Mg Tabec, 40 MG PO DAILY@06, #30 TAB Prov:ALIZA CUENCA MD 12/22/14 Nitroglycerin* (Nitrostat*) 25 Tab Subl, 1 TAB SL Q5M Y for CHEST PAIN, #90 TAB Prov:ALIZA CUENCA MD 12/22/14 Losartan Potassium* (Cozaar*) 50 Mg Tab, 50 MG PO Q12, #60 TAB Prov:ALIZA CUENCA MD 12/22/14 Reported Medications Aspirin* (Aspirin* Chew) 81 Mg Tab.chew, 81 MG PO DAILY, TAB.CHEW 07/16/16 Insulin Aspart (Novolog FlexPen) 100 Unit/1 Ml Insuln.pen, 0 SC SLIDING SCALE ACHS, EA 07/16/16 Cyanocobalamin* (Vitamin B-12*) 1,000 Mcg Tablet.sa, 1000 MCG PO DAILY, TAB 06/16/16 Baclofen* (Baclofen*) 10 Mg Tablet, 10 MG PO BID, TAB 06/16/16 Morphine Sulfate* (Ms Contin*) 15 Mg Tablet.sa, 15 MG PO Q6, TAB.SA 06/16/16 Gabapentin* (Gabapentin*) 300 Mg Capsule, 300 MG PO BID, #60 CAP 06/16/16 Isosorbide Mononitrate* (Isosorbide Mononitrate*) 60 Mg Tab.er.24h, 90 MG PO DAILY, TAB 04/27/15 Atorvastatin* (Atorvastatin*) 40 Mg Tablet, 40 MG PO HS, TAB 12/18/14 Furosemide* (Furosemide*) 40 Mg Tablet, 40 MG PO BID, TAB 05/18/14 Alprazolam* (Alprazolam*) 0.5 Mg Tablet, 0.5 MG PO Q8 for ANXIETY, TAB 05/18/14 Clopidogrel Bisulfate (Clopidogrel) 75 Mg Tablet, 75 MG PO DAILY, TAB 04/26/14 Meclizine Hcl* (Meclizine Hcl*) 25 Mg Tablet, 25 MG PO TID Y for VERTIGO, TAB 04/26/14 Carvedilol* (Carvedilol*) 12.5 Mg Tablet, 12.5 MG PO BID, TAB 04/26/14 Metformin Hcl* (Metformin Hcl*) 1,000 Mg Tablet, 1000 MG PO BID, TAB 04/26/14 Amlodipine Besylate* (Amlodipine Besylate*) 5 Mg Tablet, 5 MG PO DAILY, TAB 04/26/14 Insulin Isophan/Regular (Humulin 70/30) 100 Units/Ml Susp, 15 UNIT SC PM, EA 04/26/14 Insulin Isophan/Regular (Humulin 70/30) 100 Units/Ml Susp, 15 UNIT SC AM, EA 04/26/14 Allergies Allergies: Coded Allergies: sumatriptan (Verified Allergy, Unknown, 07/16/16) sumatriptan succinate (Verified Allergy, Unknown, 07/16/16) venlafaxine HCl (Verified Allergy, Unknown, 07/16/16) PMhx/Soc History of Surgery: Yes (CABG 2008, pacemaker) Anesthesia Reaction: No Hx Neurological Disorder: Yes (migraines) Hx Respiratory Disorders: No Hx Cardiac Disorders: Yes ([place]) Hx Psychiatric Problems: Yes (depression, anxiety) Hx Miscellaneous Medical Probl: Yes (CAD, CABG, pacemaker, GOOD, PTCA, Anxiety, insomnia, possible seizure) Hx Alcohol Use: No Hx Substance Use: No Hx Tobacco Use: No Physical Exam Vitals Vital Signs Date Time Temp Pulse Resp B/P Pulse Ox O2 Delivery O2 Flow Rate FiO2 08/15/16 05:07 79 16 142/78 99 Nasal Cannula 3.0 08/15/16 03:34 68 16 119/63 98 Nasal Cannula 2.0 08/15/16 02:00 89 24 151/96 100 Nasal Cannula 4.0 08/15/16 01:05 Nasal Cannula 2 08/15/16 00:44 97.6 67 16 123/58 100 08/15/16 00:40 3.0 Physical Exam Const: No acute distress. Very anxious Head: Atraumatic. Eyes: Normal Conjunctiva. ENT: Normal External Ears, Nose and Mouth. Neck: Full range of motion. No meningismus. Resp: Clear to auscultation bilaterally. Cardio: Regular rate and rhythm, no murmurs. Abd: Soft, non distended, normal bowel sounds, non tender. Skin: No petechiae or rashes. Back: No midline or flank tenderness. Ext: No cyanosis, or edema. Neur: Awake and alert. No focal deficit Psych: Normal Mood and Affect. Result Diagram: 08/15/16 0020 08/15/16 0020 Results 24 hrs Laboratory Tests Test 08/15/16 00:20 08/15/16 00:28 Activated Partial Thromboplast Time 22.7Sec Anion Gap 20 Basophils # 0.010^3/ul Basophils % 0.5% Blood Urea Nitrogen 19mg/dl Calcium Level 9.4mg/dl Carbon Dioxide Level 25mmol/L Chloride Level 102mmol/L Creatinine 0.71mg/dl Eosinophils # 0.210^3/ul Eosinophils % 2.3% Ethyl Alcohol Level < 10.0mg/dl Glucose Level 126mg/dl Hematocrit 33.5% Hemoglobin 10.9g/dl Hemoglobin A1c 6.8% INR International Normalized Ratio 0.98 Lymphocytes # 2.310^3/ul Lymphocytes % 27.0% Mean Corpuscular Hemoglobin 28.5pg Mean Corpuscular Hemoglobin Concent 32.5g/dl Mean Corpuscular Volume 87.7fl Mean Platelet Volume 9.8fl Monocytes # 0.710^3/ul Monocytes % 8.8% Neutrophils # 5.110^3/ul Neutrophils % 60.8% Nucleated Red Blood Cells # 0.010^3/ul Nucleated Red Blood Cells % 0.0/100WBC Platelet Count 79381^3/UL Potassium Level 3.6mmol/L Prothrombin Time 13.0Sec Prothrombin Time Ratio 1.0 Red Blood Count 3.8210^6/ul Red Cell Distribution Width 14.7% Sodium Level 143mmol/L Troponin I 0.027ng/ml White Blood Count 8.310^3/ul Bedside Glucose 137mg/dL Current Medications Medications (Trade) Dose Ordered Sig/Cecil Route PRN Reason Start Time Stop Time Status Last Admin Dose Admin Nitroglycerin (Nitroglycerin 2% Oint) 1 inch ONCE ONCE TD 08/15/16 01:30 08/15/16 01:31 DC 08/15/16 01:41 Nitroglycerin 1 inch 1 inch ONCE ONCE TD 08/15/16 01:30 08/15/16 01:31 DC Sodium Chloride (NS) 100 ml @ ud STK-MED ONCE .ROUTE 08/15/16 01:38 08/15/16 01:39 DC 08/15/16 02:01 Iohexol (Omnipaque 300mg/ ml) 150 ml STK-MED ONCE .ROUTE 08/15/16 01:38 08/15/16 01:39 DC 08/15/16 02:01 Morphine Sulfate (morphine) 2 mg ONCE ONCE IV 08/15/16 02:00 08/15/16 02:12 DC Ondansetron HCl (Zofran Inj) 4 mg ONCE ONCE IV 08/15/16 02:02 08/15/16 02:03 DC 08/15/16 02:05 Lorazepam (Ativan) 0.5 mg ONCE ONCE IV 08/15/16 02:30 08/15/16 02:31 DC 08/15/16 02:10 Morphine Sulfate (morphine) 4 mg STK-MED ONCE .ROUTE 08/15/16 02:05 08/15/16 02:06 DC Lorazepam (Ativan) 2 mg STK-MED ONCE .ROUTE 08/15/16 02:06 08/15/16 02:07 DC Morphine Sulfate 4 mg 4 mg ONCE ONCE IV 08/15/16 02:10 08/15/16 02:17 DC 08/15/16 02:10 Nitroglycerin/ Dextrose (Nitroglycerin 50 Mg/D5W (Pmx)) 250 ml @ 0 mls/hr TITRATE IV 08/15/16 02:30 08/15/16 02:39 Aspirin (Aspirin) 325 mg ONCE ONCE PO 08/15/16 03:30 08/15/16 03:31 DC 08/15/16 03:08 Hydromorphone HCl (Dilaudid) 1 mg ONCE STAT IV 08/15/16 04:25 08/15/16 04:27 DC 08/15/16 04:34 Procedures/[place] [address] Radiology Main Line: [phone] DIAGNOSTIC IMAGING REPORT Patient: FANNY RICARDO : 1960 Age: 56 Sex: M MR #: [id number] DOS: 08/15/16 0133 Ordering MD: ADAN MALCOLM MD Location: E/R Room/Bed: PROCEDURE: CTA HEAD/NECK August 15, 2016 at 01:50 a.m. CLINICAL INDICATION: 56-year-old male with change in mental status. TECHNIQUE: The study was performed utilizing a [employer] VCT 64-slice multidetector CT scanner. Direct spiral axial sections were obtained through the neck with the use of 100 cc of [id number]-300 nonionic intravenous contrast material. Coronal and sagittal as well as maximal intensity projection reformations were obtained. One or more of the following dose reduction techniques were utilized: automated exposure control, adjustment of the mA and/ or kV according to patient's size or use of iterative reconstruction technique. The images were reviewed on a PACS workstation. CTD/vol = 94.3 mGy; Total Exam DLP = 623.5 mGy-cm. COMPARISON: CT brain August 15, 2016 at 12:34 a.m. FINDINGS: The aortic arch is calcified but without aneurysmal dilatation or dissection. The origins of the great vessels display mild atherosclerotic disease but without evidence for significant stenosis or occlusion.. Evaluation of the right carotid bifurcation region reveals mild calcific atherosclerotic disease without evidence for significant stenosis, occlusion or dissection. Evaluation of the left carotid bifurcation region reveals diffuse calcific atherosclerotic disease with total occlusion of the internal carotid artery approximately 10 mm beyond the origin. The vertebral arteries are patent bilaterally without significant stenosis, occlusion or dissection. There is linear scarring within the posterior aspect of the left lung apex. There is a left-sided pacemaker identified. The patient has had a median sternotomy. There is severe calcific atherosclerotic disease within the right carotid siphon with a severe narrowing of approximately 80%. There is total occlusion of the left internal carotid artery throughout the internal carotid canal and siphon. There is mild diffuse atherosclerotic disease within the anterior circulation but without evidence for significant stenosis. The proximal portions of the anterior and middle cerebral arteries are patent bilaterally. There appears to be total occlusion of the anterior temporal branch of the right middle cerebral artery at the trifurcation. There is diffuse atherosclerotic disease within the posterior cerebral arteries. There is a moderate stenosis within the mid left P2 segment of the posterior cerebral artery. There appears to be distal occlusion of the right posterior cerebral artery beyond the P2 segment. There is no evidence for an aneurysm or arteriovenous malformation. The superior sagittal and dural sinuses are patent. IMPRESSION: 1. Total occlusion of the left internal carotid artery approximately 10 mm beyond the origin extending intracranially. 2. Severe calcific atherosclerotic disease within the right internal carotid artery within the carotid siphon with narrowing of up to 80% utilizing NASCET criteria. 3. Total occlusion anterior temporal branch of the right middle cerebral artery at the level of the trifurcation. 4. Distal occlusion of the right posterior cerebral artery beyond the P2 segment. 5. Moderate stenosis mid P2 segment of the left posterior cerebral artery. CALL REPORT: A call report was made to [facility] DR. Malcolm on August 15, 2016 at 04: 30 a.m. .Eliseo Dey MD, Date Time Electronically viewed and signed by .Eliseo Dey MD, on 08/15/2016 04:33 .M/ CC: ADAN MALCOLM MD [facility] [address] [place] [address] Radiology Main Line: [phone] DIAGNOSTIC IMAGING REPORT Patient: FANNY RICARDO : 1960 Age: 56 Sex: M MR #: [id number] [facility] #: [id number] DOS: 08/15/16 0214 Ordering MD: ADAN MALCOLM MD Location: E/R Room/Bed: PROCEDURE: CT CHEST WITHOUT CONTRAST CLINICAL INDICATION: 56-year-old male with chest pain and change in mental status.. TECHNIQUE: The study was performed utilizing a [employer] VCT 64-slice CT scanner. Direct axial sections were obtained through the chest without the use of intravenous contrast material. Sagittal and coronal re-formations were obtained. Automated exposure control and iterative reconstruction techniques were utilized for this examination. The images were reviewed on a PACS workstation. CTD/vol = 14.1 mGy; Total Exam DLP = 571.3 mGy-cm. COMPARISON: Chest x-ray August 15, 2016 at 12:37 a.m. FINDINGS: There is a left-sided pacemaker. The aorta is calcified but without aneurysmal dilatation. Extensive coronary artery calcifications are visualized. Cardiomegaly is present. The main pulmonary artery is noted to be enlarged measuring 4.4 cm suggestive of pulmonary hypertension. There are small lymph nodes seen within the mediastinum which are not pathologic by size criteria. There is mild nonspecific diffuse ground glass appearance. There is mild diffuse posterior left pleural thickening. There is no evidence for an infiltrate. There is no evidence for a pneumothorax. The patient has had a prior median sternotomy. Scans through the upper abdomen reveals that the upper liver is unremarkable. There is contrast identified within the left kidney from the patient's recent CT head without evidence for obstructive uropathy. IMPRESSION: 1. Status post median sternotomy with cardiomegaly and extensive coronary artery calcifications. 2. Left-sided pacemaker. 3. Enlarged main pulmonary artery suggestive of pulmonary hypertension. 4. Mild diffuse ground glass appearance suggestive of volume overload. 5. Diffuse posterior left pleural thickening. .Eliseo Dey MD, MD Date Time Electronically viewed and signed by .Eliseo Dey MD, MD on 08/15/2016 04:56 .M/ CC: ADAN MALCOLM MD [place] [address] Radiology Main Line: [phone] DIAGNOSTIC IMAGING REPORT Patient: FANNY RICARDO : 1960 Age: 56 Sex: M MR #: [id number] DOS: 08/15/168 Ordering MD: ADAN MALCOLM MD Location: E/R Room/Bed: PROCEDURE: XR Chest. CLINICAL INDICATION: Possible stroke. TECHNIQUE: Portable AP semi erect view of the chest was obtained. COMPARISON: 07/16/2016 FINDINGS: The cardiomediastinal silhouette is enlarged with a dual chamber left subclavian approach cardiac pacemaker again noted. The lungs are clear. There is no evidence for pleural effusion, pneumothorax or pulmonary vascular congestion. Sternotomy wires are again seen with no evidence of acute osseous. RPTAT:HJJR IMPRESSION: Stable cardiac silhouette enlargement, post thoracotomy changes and cardiac pacemaker without evidence for acute intrathoracic pathology. Physician Bharati Date Time Electronically viewed and signed by Physician Bharati on 08/15/2016 00:53 JR/ CC: ADAN MALCOLM MD [place] [address] Radiology Main Line: [phone] DIAGNOSTIC IMAGING REPORT Patient: FANNY RICARDO : 1960 Age: 56 Sex: M MR #: [id number] DOS: 08/15/1627 Ordering MD: ADAN MALCOLM MD Location: E/R Room/Bed: PROCEDURE: CT brain without contrast CLINICAL INDICATION: Neurologic deficit. Symptoms of acute stroke. Code stroke TECHNIQUE: A CT of the brain was performed utilizing axial sections from the skull base through the vertex without contrast. Sagittal and coronal images were also reformatted. The exam CTDIvol = 44.03 mGy and DLP = 810.25 mGy-cm. COMPARISON: 05/18/2014 FINDINGS: No acute intracranial hemorrhage is identified. There is no mass effect or midline shift. No extra-axial fluid collection is seen. The ventricles and sulci are larger in size and configuration for the patient's provided age of 56 years consistent with advanced generalized atrophy. Small chronic lacunar infarct within the posterior limb right internal capsule is again noted as well as another chronic lacunar infarct in the left lentiform nucleus and high. Low attenuation of the left greater than right periventricular and subcortical white matter is consistent with progressing chronic small vessel ischemic disease. Small chronic-appearing left laguerre radiata and centrum semiovale lacunar infarcts are now present not evident on the prior exam.. Duenas-white differentiation is preserved with no findings to suggest an acute ischemic infarct. Not evident on the previous study is a chronic-appearing lacunar infarct within the left brandy. The fourth ventricle is midline no cerebellum abnormality is demonstrated. The osseous structures are unremarkable. The mastoid air cells and visualized paranasal sinuses are clear. RPTAT:HJJR IMPRESSION: 1.Advanced atrophy for the patient's provided age without evidence of hemorrhage or acute ischemic infarct. 2. Chronic appearing left coronal radiata, pontine and centrum semiovale lacunar infarcts are not present on the prior study of 05/18/2014. 3. Chronic-appearing lacunar infarcts within the right internal capsule, left lentiform nucleus with present on the prior study of 05/18/2014. 4. Progressive worsening of chronic small vessel ischemic white matter disease particularly in the left cerebral hemisphere compared to the prior study. 5. Results are discussed by telephone with emergency room physician Dr. Malcolm at 12:51 Physician Bharati Date Time Electronically viewed and signed by Physician Bharati on 08/15/2016 00:52 JR/ CC: ADAN MALCOLM MD EKG: Read by emergency physician at 12:41 AM Rate/Rhythm: Normal Sinus Rhythm 70 beats/min QRS, ST, T-waves: No ST elevation, no T inversion, no ST elevation, no T inversion, prolonged QT Impression: Abnormal EKG EKG: Read by emergency physician 1:23 AM Rate/Rhythm: Normal Sinus Rhythm 67 beats/min QRS, ST, T-waves: No ST elevation, no T inversion, no ST elevation, no T inversion, prolonged QT Impression: Abnormal EKG EKG: Read by emergency physician at 2:14 AM Rate/Rhythm: Normal Sinus Rhythm 78 beats/min QRS, ST, T-waves: No ST elevation, no T inversion, minimal ST depression in inferior and lateral leads, no ST elevation Impression: Abnormal EKG Consultation: I discussed the patient with the stroke neurologist Dr Adorno at 1: 15 AM who was unable to connect to have a stroke monitor to evaluate patient. However he does not think the patient has acute stroke and recommended CTA of the brain and neck I discussed the patient with the stroke neurologist Dr Adorno at 4:50 AM after I received the verbal report of the CT angiogram of the brain and neck from the radiologist. He recommended to transfer the patient to [facility] stroke center I discussed the patient with the stroke neurologist at [facility] stroke center Dr Sheldon at 5 AM. She was made aware of the CTA of the brain and the neck and Dr Adorno's recommendation. She disagree with the recommendation and did not believe the patient to be transferred. She would like to see the patient in her office at [phone] after his discharge from the hospital. Consultation: I discussed the patient with his physician Dr Martinez, who asked me to speak to his asset protection officer Dr Olsen. I spoke to Dr. Olsen at 4 AM, was made aware of the lab, the patient condition, the treatment. He agree with nitroglycerin drip and admit the patient to ICU MEDICAL MAKING DECISION: The patient is a 56-year-old male with multiple cardiac risk factors, presenting with acute chest pain that is concerning for ACS, questionable acute TIA. He was treated with aspirin 325 mg p.o., 1 inch of nitroglycerin ointment to the chest wall. He continued to have chest pain, therefore he was treated with morphine 4 mg IV and started on nitroglycerin drip titrated for chest pain free. The differential diagnoses considered include but are not limited to acute coronary syndrome, acute myocardial infarction, pericarditis, pulmonary embolism, aortic dissection, pneumonia, pleural effusion, pneumothorax, GERD, chest wall pain. Critical Care: Time: 75 minutes excluding all billable procedures. Treatments/Evaluations: Close monitoring and treatment of unstable vital signs, cardiorespiratory, and neurologic status, while maintaining tight balance of fluid, respiratory, and cardiac interventions. Departure Diagnosis: Primary Impression: Chest pain Additional Impressions: TIA (transient ischemic attack) Anemia Internal carotid artery stenosis Condition: Serious Comments I discussed the findings with the patient. I discussed the patient with his physician Dr. Martinez who was made aware of the lab, the treatment, the patient condition. The patient is admitted to ICU at 3:25 am. He is aware that the patient needs to follow-up with Dr. Sheldon at [facility] after discharge ADAN MALCOLM MD Aug 15, 2016 00:28
[2016-08-15 00:50] LABS: ADD SCAN DIFF NO
--- NOTE | 2016-08-15 00:52 | RADRPT ---
PROCEDURE: CT brain without contrast CLINICAL INDICATION: Neurologic deficit. Symptoms of acute stroke. Code stroke TECHNIQUE: A CT of the brain was performed utilizing axial sections from the skull base through th e vertex without contrast. Sagittal and coronal images were also reformatted. The exam CTDIvol = 44. 03 mGy and DLP = 810.25 mGy-cm. COMPARISON: 05/18/2014 FINDINGS: No acute intracranial hemorrhage is identified. There is no mass effect or midline shift. No extra -axial fluid collection is seen. The ventricles and sulci are larger in size and configuration for the patient's provided age of 56 years consistent with advanced generalized atrophy. Small chronic lacunar infarct within the posterior limb right internal capsule is again noted as well as another c hronic lacunar infarct in the left lentiform nucleus and high. Low attenuation of the left greater than right periventricular and subcortical white matter is consistent with progressing chronic small vessel ischemic disease. Small chronic-appearing left laguerre radiata and centrum semiovale lacunar infarcts are now present not evident on the prior exam.. Duenas-white differentiation is preserved w ith no findings to suggest an acute ischemic infarct. Not evident on the previous study is a chronic-appearing lacunar infarct within the left brandy. The fourth ventricle is midline no cerebellum abnormality is demonstrated. The osseous structures are unremarkable. The mastoid air cells and visualized paranasal sinuses are clear. RPTAT:HJJR IMPRESSION: 1.Advanced atrophy for the patient's provided age without evidence of hemorrhage or acute ischemic i nfarct. 2. Chronic appearing left coronal radiata, pontine and centrum semiovale lacunar infarcts are not pr esent on the prior study of 05/18/2014. 3. Chronic-appearing lacunar infarcts within the right internal capsule, left lentiform nucleus with present on the prior study of 05/18/2014. 4. Progressive worsening of chronic small vessel ischemic white matter disease particularly in the l eft cerebral hemisphere compared to the prior study. 5. Results are discussed by telephone with emergency room physician Dr. Beard at 12:51 Physician Bharati Date Time Electronically viewed and signed by Physician Bharati on 08/15/2016 00:52 /
[2016-08-15 00:53] LABS: BASOPHILS % 0.5 % (0.0-2.0); EOSINOPHILS # 0.2 10^3/ul (0.0-0.5); EOSINOPHILS % 2.3 % (0.0-7.0); HEMATOCRIT 33.5 % (42.0-52.0); HEMOGLOBIN 10.9 g/dl (14.0-18.0); LYMPHOCYTES # 2.3 10^3/ul (0.8-2.9); MEAN CORPUSCULAR HEMOGLOBIN 28.5 pg (29.0-33.0); MEAN CORPUSCULAR HGB CONC 32.5 g/dl (32.0-37.0); MEAN CORPUSCULAR VOLUME 87.7 fl (82.0-101.0); MEAN PLATELET VOLUME 9.8 fl (7.4-10.4); MONOCYTE # 0.7 10^3/ul (0.3-0.9); MONOCYTES % 8.8 % (0.0-11.0); NEUTROPHIL # 5.1 10^3/ul (1.6-7.5); NEUTROPHILS % 60.8 % (39.0-77.0); PLATELET COUNT 304 10^3/UL (140-415); RED BLOOD COUNT 3.82 10^6/ul (4.70-6.10); RED CELL DISTRIBUTION WIDTH 14.7 % (11.5-14.5); WHITE BLOOD COUNT 8.3 10^3/ul (4.8-10.8)
--- NOTE | 2016-08-15 00:54 | RADRPT ---
PROCEDURE: XR Chest. CLINICAL INDICATION: Possible stroke. TECHNIQUE: Portable AP semi erect view of the chest was obtained. COMPARISON: 07/16/2016 FINDINGS: The cardiomediastinal silhouette is enlarged with a dual chamber left subclavian approach cardiac pa cemaker again noted. The lungs are clear. There is no evidence for pleural effusion, pneumothorax or pulmonary vascular congestion. Sternotomy wires are again seen with no evidence of acute osseous . RPTAT:HJJR IMPRESSION: Stable cardiac silhouette enlargement, post thoracotomy changes and cardiac pacemaker without eviden ce for acute intrathoracic pathology. Physician Bharati Date Time Electronically viewed and signed by Alxeei Chan Physician on 08/15/2016 00:53 JR/
[2016-08-15 01:06] LABS: INR 0.98
[2016-08-15 01:07] LABS: PARTIAL THROMBOPLASTIN TIME 22.7 Sec (25.0-35.0)
[2016-08-15 01:15] LABS: POTASSIUM 3.6 mmol/L (3.5-5.1)
[2016-08-15 01:17] LABS: CREATININE 0.71 mg/dl (0.61-1.24)
[2016-08-15 01:19] LABS: CALCIUM 9.4 mg/dl (8.4-10.2)
[2016-08-15 01:30] LABS: TROPONIN-I 0.027 ng/ml (0.00-0.12)
[2016-08-15] MEDS ORDERED: NITROGLYCERIN 2% 1 GM OINT PKT TD ONE ×2 (01:30)
[2016-08-15] MEDS ORDERED: SOD CHLORIDE 0.9% 100 ML ONE (01:38)
[2016-08-15] MEDS ORDERED: IOHEXOL 300MG/ML 150 ML BTL ONE (01:38)
[2016-08-15] MEDS ORDERED: morphine 2 MG INJ IV ONE (02:00)
[2016-08-15] MEDS ORDERED: ONDANSETRON 4 MG INJ IV ONE (02:02)
[2016-08-15] MEDS ORDERED: morphine 4 MG/ML VIAL ONE (02:05)
[2016-08-15] MEDS ORDERED: LORAZEPAM 2 MG INJ ONE (02:06)
[2016-08-15] MEDS ORDERED: morphine 4 MG/ML VIAL IV ONE (02:10)
[2016-08-15] MEDS ORDERED: LORAZEPAM 2 MG INJ IV ONE (02:30)
[2016-08-15] MEDS ORDERED: NITROGLYCERIN 50 MG/D5W (PMX) 250 ML IV SCH (02:30)
[2016-08-15] MEDS ORDERED: ASPIRIN 325 MG TAB PO ONE (03:30)
[2016-08-15] MEDS ORDERED: HYDROmorphONE 1 MG/ML SYG IV STA ×2 (04:25→07:03)
--- NOTE | 2016-08-15 04:34 | RADRPT ---
PROCEDURE: CTA HEAD/NECK August 15, 2016 at 01:50 a.m. CLINICAL INDICATION: 56-year-old male with change in mental status. TECHNIQUE: The study was performed utilizing a [employer] VCT 64-slice multidetector CT scanner . Direct spiral axial sections were obtained through the neck with the use of 100 cc of Isovue-300 n onionic intravenous contrast material. Coronal and sagittal as well as maximal intensity projection reformations were obtained. One or more of the following dose reduction techniques were utilized: a utomated exposure control, adjustment of the mA and/or kV according to patient's size or use of iter ative reconstruction technique. The images were reviewed on a PACS workstation. CTD/vol = 94.3 mGy; Total Exam DLP = 623.5 mGy-cm. COMPARISON: CT brain August 15, 2016 at 12:34 a.m. FINDINGS: The aortic arch is calcified but without aneurysmal dilatation or dissection. The origins of the gre at vessels display mild atherosclerotic disease but without evidence for significant stenosis or occ lusion.. Evaluation of the right carotid bifurcation region reveals mild calcific atherosclerotic di sease without evidence for significant stenosis, occlusion or dissection. Evaluation of the left ca rotid bifurcation region reveals diffuse calcific atherosclerotic disease with total occlusion of th e internal carotid artery approximately 10 mm beyond the origin. The vertebral arteries are patent b ilaterally without significant stenosis, occlusion or dissection. There is linear scarring within t he posterior aspect of the left lung apex. There is a left-sided pacemaker identified. The patient has had a median sternotomy. There is severe calcific atherosclerotic disease within the right carotid siphon with a severe narro wing of approximately 80%. There is total occlusion of the left internal carotid artery throughout the internal carotid canal and siphon. There is mild diffuse atherosclerotic disease within the ante rior circulation but without evidence for significant stenosis. The proximal portions of the anteri or and middle cerebral arteries are patent bilaterally. There appears to be total occlusion of the anterior temporal branch of the right middle cerebral artery at the trifurcation. There is diffuse atherosclerotic disease within the posterior cerebral arteries. There is a moderate stenosis within the mid left P2 segment of the posterior cerebral artery. There appears to be distal occlusion of the right posterior cerebral artery beyond the P2 segment. There is no evidence for an aneurysm or arteriovenous malformation. The superior sagittal and dural sinuses are patent. IMPRESSION: 1. Total occlusion of the left internal carotid artery approximately 10 mm beyond the origin extend ing intracranially. 2. Severe calcific atherosclerotic disease within the right internal carotid artery within the hu tid siphon with narrowing of up to 80% utilizing NASCET criteria. 3. Total occlusion anterior temporal branch of the right middle cerebral artery at the level of the trifurcation. 4. Distal occlusion of the right posterior cerebral artery beyond the P2 segment. 5. Moderate stenosis mid P2 segment of the left posterior cerebral artery. CALL REPORT: A call report was made to [facility] DR. Beard on August 15, 2016 at 04:30 a.m. .Eliseo Dey MD, Date Time Electronically viewed and signed by .Eliseo Dey MD, on 08/15/2016 04:33 .M/
--- NOTE | 2016-08-15 04:57 | RADRPT ---
PROCEDURE: CT CHEST WITHOUT CONTRAST CLINICAL INDICATION: 56-year-old male with chest pain and change in mental status.. TECHNIQUE: The study was performed utilizing a GE [employer] VCT 64-slice CT scanner. Direct axia l sections were obtained through the chest without the use of intravenous contrast material. Sagitt al and coronal re-formations were obtained. Automated exposure control and iterative reconstruction techniques were utilized for this examination. The images were reviewed on a PACS workstation. CT D/vol = 14.1 mGy; Total Exam DLP = 571.3 mGy-cm. COMPARISON: Chest x-ray August 15, 2016 at 12:37 a.m. FINDINGS: There is a left-sided pacemaker. The aorta is calcified but without aneurysmal dilatation. Extensiv e coronary artery calcifications are visualized. Cardiomegaly is present. The main pulmonary arter y is noted to be enlarged measuring 4.4 cm suggestive of pulmonary hypertension. There are small ly mph nodes seen within the mediastinum which are not pathologic by size criteria. There is mild nonsp ecific diffuse ground glass appearance. There is mild diffuse posterior left pleural thickening. Th ere is no evidence for an infiltrate. There is no evidence for a pneumothorax. The patient has had a prior median sternotomy. Scans through the upper abdomen reveals that the upper liver is unremarkable. There is contrast iden tified within the left kidney from the patient's recent CT head without evidence for obstructive uro johnson. IMPRESSION: 1. Status post median sternotomy with cardiomegaly and extensive coronary artery calcifications. 2. Left-sided pacemaker. 3. Enlarged main pulmonary artery suggestive of pulmonary hypertension. 4. Mild diffuse ground glass appearance suggestive of volume overload. 5. Diffuse posterior left pleural thickening. .Eliseo Dey MD, Date Time Electronically viewed and signed by .Eliseo Dey MD, MD on 08/15/2016 04:56 .M/
[2016-08-15] MEDS ORDERED: MECLIZINE 25 MG TAB PO PRN (06:30)
[2016-08-15] MEDS ORDERED: NITROGLYCERIN (SL) 0.4 MG TAB SL PRN (06:30)
[2016-08-15] MEDS ORDERED: ZOLPIDEM 5 MG TAB PO PRN (06:30)
[2016-08-15] MEDS ORDERED: ONDANSETRON 4 MG INJ IV PRN (06:30)
[2016-08-15] MEDS ORDERED: ACETAMINOPHEN 650MG/20.3ML CUP PO PRN (06:30)
[2016-08-15] MEDS ORDERED: GLUCOSE GEL 15 GRAM TUBE BUCCAL PRN (07:30)
[2016-08-15] MEDS ORDERED: GLUCOSE GEL 15 GRAM TUBE PO PRN ×2 (07:30)
[2016-08-15] MEDS ORDERED: GLUCAGON 1 MG INJ IM PRN (07:30)
[2016-08-15] MEDS ORDERED: DEXTROSE 50% 50 ML SYRINGE IV PRN ×2 (07:30)
[2016-08-15] MEDS ORDERED: ISOSORBIDE MONONITRATE(SR)60 MG TAB PO SCH (09:00)
[2016-08-15] MEDS: INSULIN ASPART [NOVOLOG] 3 ML PEN SC SCH ×4 (09:28→22:13)
[2016-08-15] MEDS: ASPIRIN 81 MG TAB PO SCH (10:03)
[2016-08-15] MEDS: CLOPIDOGREL 75 MG TAB PO SCH (10:04)
[2016-08-15] MEDS: LOSARTAN 50 MG TAB PO SCH ×2 (10:07→20:35)
[2016-08-15] MEDS: BACLOFEN 10 MG TAB PO SCH ×2 (10:07→21:00)
[2016-08-15] MEDS: GABAPENTIN 300 MG CAP PO SCH ×2 (10:08→20:35)
[2016-08-15] MEDS: AMLODIPINE 5 MG TAB PO SCH (10:08)
[2016-08-15] MEDS: RANOLAZINE (SR) 500 MG TAB PO SCH ×2 (10:09→21:00)
[2016-08-15] MEDS: CYANOCOBALAMIN 500 MCG TAB PO SCH (10:09)
[2016-08-15] MEDS: FUROSEMIDE 40 MG TAB PO SCH ×2 (10:09→20:34)
[2016-08-15] MEDS: ENOXAPARIN 40 MG/0.4 ML SYG SC SCH (10:12)
[2016-08-15] MEDS: morphine (ER) 15 MG TAB PO SCH ×2 (10:25→21:00)
[2016-08-15] MEDS ORDERED: morphine (ER) 15 MG TAB PO SCH (12:00)
--- NOTE | 2016-08-15 12:56 | CONS ---
DATE OF ADMISSION: 08/15/2016 DATE OF CONSULTATION: 08/15/2016 TYPE OF CONSULTATION: Cardiology REASON FOR CONSULTATION: Chest pain refractory to medical therapy, cardiomyopathy with severely dep ressed left ventricular ejection fraction. REQUESTING PHYSICIAN: Shashank Martinez MD HISTORY OF PRESENT ILLNESS: Mr. Louis is a 56-year-old male with history of coronary artery dise ase, status post prior PTCA and stent placement to obtuse marginal in 11/2014, coronary artery bypas s graft surgery with a patent KNOTT to LAD with all other grafts occluded by most recent catheterizat ion 07/12/2016, which also revealed patient to have a diffusely diseased distal LAD after insertion of the KNOTT graft, who is currently being evaluated for possible cardiac transplantation at [facility] and presents with refractory angina. Initially upon arrival, temperature 97.6, blood pressure 123/58, p ulse 67, respirations 16, saturation 100%. The patient's labs showed white count of 8.3, hemoglobin 10.9, platelet count 304. Sodium 143, potassium 3.6, creatinine 0.7, BUN 19. Troponin negative. Hemoglobin A1c is 6.8. INR 0.98. Alcohol level less than 10. The patient underwent a chest x-ray revealing stable cardiac silhouette, lungs are clear. A head CT revealing advanced atrophy of the p atient's ____ hemorrhagic or acute ischemic infarct, chronic appearing left laguerre radiata, pontine , centrum semiovale lacunar infarcts, progressive worsening of chronic small vessel disease. Head C TA revealing total occlusion of the left internal carotid artery, severe calcific atherosclerotic di sease in the right internal carotid artery, total occlusion anterior temporal branch of the right mi ddle cerebral artery, distal occlusion of the right posterior cerebral artery, moderate stenosis of the left ____ cerebral artery. A chest CT revealed the patient to be status post median sternotomy, left-sided pacemaker, enlarged main pulmonary artery suggestive of pulmonary hypertension, mild dif fuse ground-glass appearance suggestive of volume overload. The patient's electrocardiogram reveale d normal sinus rhythm at a rate of 78 with left axis deviation and lateral Q's, poor R-wave progress ion across the anterior precordial leads. The patient subsequently has been admitted in the emergen cy department and initiated on IV nitroglycerin. Otherwise, patient has been continued on antiangin al medications, Ranexa, Norvasc, carvedilol and continued afterload reduction with Cozaar. PAST MEDICAL HISTORY: As above in HPI with patient undergoing a recent PTCA to distal LAD at [facility] an d attempted PAPERBOARD BOX MAKER of obtuse marginal unsuccessfully at [facility] 07/31/2016. MEDICATIONS CURRENTLY IN HOSPITAL: 1. Protonix 40 mg daily. 2. Lipitor 40 mg at bedtime. 3. Dilantin ____ mg at bedtime. 4. Lantus. 5. Xanax 0.5 mg q.8h. 6. MS Contin. 7. Ranexa 1000 mg q.12h. 8. Norvasc 5 mg daily. 9. Aspirin 81 mg daily. 10. Carvedilol 12.5 mg b.i.d. 11. Plavix 75 mg daily. 12. Vitamin B12. 13. Lasix 40 mg p.o. b.i.d. 14. Neurontin 300 mg p.o. b.i.d. 15. Cozaar 50 mg q.12h. 16. Lovenox 40 mg subcutaneous daily. 17. Nitroglycerin p.r.n. 18. Zofran p.r.n. 19. Tylenol p.r.n. 20. Morphine p.r.n. 21. Ambien p.r.n. 22. IV nitroglycerin. ALLERGIES: 1. SUMATRIPTAN. 2. VENLAFAXINE. SOCIAL HISTORY: No tobacco, ETOH or illicit drug use. FAMILY HISTORY: No history of sudden cardiac or early CAD. REVIEW OF SYSTEMS: As above in HPI. CONSTITUTIONAL: No fevers, chills. PULMONARY: Shortness of breath. CARDIOVASCULAR: Angina. GASTROINTESTINAL: No vomiting. GENITOURINARY: No hematuria. MUSCULOSKELETAL: Degenerative joint disease. PSYCHIATRIC: Positive psychiatric history. NEUROLOGIC: Possible vascular dementia. PHYSICAL EXAMINATION: VITAL SIGNS: Temperature afebrile, blood pressure 125/63, pulse 60, respirations 19, saturating 100 %. GENERAL: The patient is alert, awake, complaining of chest pain. NECK: JVP approximately 9 cm water. CHEST: Fair air movement throughout. HEART: Regular rate and rhythm. Normal S1, S2, I/ systolic murmur, nondisplaced PMI. ABDOMEN: Positive bowel sounds, soft. EXTREMITIES: No pitting edema, 1+ pulses bilaterally posterior tibial. LABORATORIES: As above in HPI. Since admit, patient had a second troponin return negative, 2 negat giovanni troponins. IMAGING STUDIES: As above in HPI. No further imaging studies for my review at this time. ECG: As above in HPI. No further electrocardiograms for my review at this time. IMPRESSION: 1. Angina refractory to medical therapy with known severe multivessel obstructive coronary artery d isease, status post attempted PAPERBOARD BOX MAKER with ongoing evaluation for cardiac transplant. 2. Coronary artery disease, status post coronary bypass grafting with all grafts occluded except fo r KNOTT to LAD with thereafter diffuse disease of the KNOTT, status post recent percutaneous translumi nal coronary angioplasty to apical LAD. 3. Cardiomyopathy with severely depressed left ventricular ejection fraction approximately 15% by [facility] echocardiogram at [facility] 07/31/2016. 4. History of automatic implantable cardioverter-defibrillator. 5. History of a percutaneous transluminal coronary angioplasty and stent placement prior to obtuse marginal 11/2014, now most recently PTCA alone to apical LAD. 6. Hypertension, under reasonable control. 7. Dyslipidemia. 8. Possible development of vascular dementia. 9. Diabetes mellitus. 10. Seizure disorder. RECOMMENDATIONS: 1. At this time, would wean the patient off of IV nitroglycerin and reinstitute p.o. oral nitrates with up titration as necessary to improve overall symptomatology. Continue the patient's current Ra nexa 1000 mg q.12h. We will continue the patient's Norvasc, possible further up titration as tolera john of blood pressure for antianginal effect. 2. Continue the patient's carvedilol for blood pressure and heart rate control and antianginal effe ct. We will discontinue the patient's losartan for afterload reduction at this time. 3. We will continue to trend the patient's cardiac enzymes to assess for any possible cardiac damag e and send a final troponin to complete rule out. 4. Continue the patient's dual antiplatelet therapy with aspirin and Plavix for stent patency and b ecause of recent PTCA to apical LAD at [facility]. 5. Continue the patient's Lasix at this time, following strict I's and O's and volume status closel y. 6. Continue the patient's statin and adjust it according to a fasting lipid panel to be checked. 7. We will discuss with the transplant team at [facility] concerning possible ongoing evaluation and possi ble transfer to [facility] for further evaluation. Thank you for allowing me to take part in the care of this patient. I will continue to follow him a long very closely with you. Further recommendations will be made as the patient progresses through his inpatient hospital clinical course. Dictated By: NICHOL JACKSON/MOISES Conf#: [id number] DID#: [id number] CC: SHASHANK MARTINEZ MD;*EndCC*
[2016-08-15] MEDS ORDERED: ALPRAZOLAM 0.5 MG TAB PO SCH (14:00)
[2016-08-15 15:07] LABS: URINE BLOOD (Dip) POC Trace-intact (NEGATIVE)
[2016-08-15] MEDS: ISOSORBIDE DINITRATE 20 MG TAB PO SCH ×2 (15:30→20:34)
[2016-08-15] MEDS ORDERED: ALPRAZOLAM 0.25 MG TAB PO ONE (15:30)
[2016-08-15] MEDS: morphine 2 MG INJ IV PRN ×2 (17:17→22:24)
--- NOTE | 2016-08-15 17:51 | QN ---
Documentation Comment [id number] CARLOS MARTINEZ MD Aug 15, 2016 17:51
[2016-08-15] MEDS: ATORVASTATIN 40 MG TAB PO SCH (20:34)
[2016-08-15] MEDS: PHENYTOIN 100 MG CAP PO SCH (21:00)
[2016-08-15] MEDS: ALPRAZOLAM 0.25 MG TAB PO SCH (22:00)
[2016-08-15] MEDS: INSULIN GLARGINE [LANtus] 3 ML PEN SC SCH (22:13)
[2016-08-16] VITALS (12 sets, daily range): BP systolic 97–137; BP diastolic 53–68; PULSE 60; RESP 16–18
[2016-08-16] MEDS: morphine 2 MG INJ IV PRN ×4 (03:00→17:55)
[2016-08-16] MEDS ORDERED: PANTOPRAZOLE (EC) 40 MG TAB PO SCH (06:00)
[2016-08-16] MEDS: PANTOPRAZOLE (EC) 40 MG TAB PO SCH (06:00)
[2016-08-16] MEDS: ALPRAZOLAM 0.25 MG TAB PO SCH ×4 (06:00→20:42)
--- NOTE | 2016-08-16 07:44 | HP ---
DATE OF ADMISSION: 08/15/2016 HISTORY OF PRESENT ILLNESS: Patient with history of CAD, history of diabetes mellitus, hypertension , previously was discharged from this hospital with a diagnosis of a history of congestive heart ponce lure, history of angina, history of CABG, history of hypertension, anemia, dyslipidemia, diabetes me llitus, presented with chest pain. Also patient was seen by stroke neurologist. Patient had studie s done; showed carotid artery disease, occluded. The patient was not considered a candidate to be t ransferred for a higher level of care for cerebral angiogram intervention and the recommendation was to keep the patient here. The patient is being seen by Dr. Olsen in consultation and is going to be monitored for further management. PAST MEDICAL HISTORY: Positive CAD. Patient has history of angiogram. Patient has multiple obstru ctive coronary artery disease, including 100% occluded LAD, obtuse marginal branch that were previou sly grafted. A patent circumflex stent with a stenosis. A right heart catheterization. The right pressure is elevated. Patient's wedge pressure was 21 previously. Patient's other history includes a history of congestive heart failure, history of angina, history of CABG, history of multiple Kimberly scans, history of hypertension, anemia, dyslipidemia, diabetes mellitus. ALLERGY HISTORY 1. SUMATRIPTAN. 2. EFFEXOR. SOCIAL HISTORY: He denies. MEDICATION HISTORY The patient at home is on: 1. Xanax. 2. Amlodipine. 3. Aspirin. 4. Atorvastatin. 5. Baclofen. 6. Coreg. 7. Plavix 8. B12. 9. Lasix. 10. Gabapentin. 11. Insulin. 12. Isosorbide. 13. Losartan. 14. Meclizine. 15. Metformin. 16. Morphine sulfate. 17. Nitroglycerin. 18. [place] 3 fatty acid. 19. Protonix. 20. Dilantin. 21. Ranexa. REVIEW OF SYSTEMS HEENT: Had a headache earlier but not ____ . Denies any numbness and tingling. RESPIRATORY: Unremarkable. CARDIOVASCULAR: No chest pain at the time of this examination. ABDOMEN: Unremarkable. EXTREMITIES: Unremarkable. PHYSICAL EXAMINATION GENERAL: The patient is awake, alert. VITAL SIGNS: Pulse 60, blood pressure of 125/63. HEENT: Head is atraumatic, normocephalic. Pupils equal, reactive to light. No pallor or conjuncti brandin icterus. NECK: Supple. LUNGS: Clear. CARDIOVASCULAR: S1, S2 normal. A CABG scar noted. EXTREMITIES: No cyanosis, clubbing, or edema. CENTRAL NERVOUS SYSTEM: Awake and alert, with no focal deficit. LABORATORY DATA: Hematocrit 33.5, sodium ____. CHEST X-RAY: Shows stable cardiac silhouette enlargement. COMPUTED TOMOGRAPHY SCAN: Brain, shows advanced atrophy of the patient's frontal and parietal areas , without evidence of hemorrhage or acute ischemic infarction. Chronic-appearing left laguerre radiat a, pontine, centrum semiovale. Chronic-appearing lacunar infarction, progressive worsening of chron ic small vessel ischemic white matter disease. ELECTROCARDIOGRAM: Showed sinus rhythm, patient had nonspecific ST-T changes. IMPRESSION 1. Patient has carotid artery disease. 2. Coronary artery disease. 3. History of coronary artery bypass graft. 4. Atherosclerotic heart disease. 5. Angina. 6. Diabetes mellitus. 7. Dyslipidemia. 8. History of stent placement. 9. History of coronary angiogram and multiple Lexiscans. PLAN: To continue home medication. Antianginal treatment. Sliding scale. Cardiology consultation . Neurology consultation will be considered. Dictated By: CARLOS MARTINEZ MD BS/NTS Conf#: [id number] DID#: [id number]
[2016-08-16] MEDS: INSULIN ASPART [NOVOLOG] 3 ML PEN SC SCH ×4 (08:00→19:47)
[2016-08-16] MEDS: CLOPIDOGREL 75 MG TAB PO SCH (08:47)
[2016-08-16] MEDS: FUROSEMIDE 40 MG TAB PO SCH (08:47)
[2016-08-16] MEDS: LOSARTAN 50 MG TAB PO SCH ×2 (08:48→20:36)
[2016-08-16] MEDS: ASPIRIN 81 MG TAB PO SCH (08:48)
[2016-08-16] MEDS: GABAPENTIN 300 MG CAP PO SCH ×2 (08:48→20:36)
[2016-08-16] MEDS: BACLOFEN 10 MG TAB PO SCH ×2 (08:48→20:35)
[2016-08-16] MEDS: AMLODIPINE 5 MG TAB PO SCH (08:48)
[2016-08-16] MEDS: CYANOCOBALAMIN 500 MCG TAB PO SCH (08:49)
[2016-08-16] MEDS: ISOSORBIDE DINITRATE 20 MG TAB PO SCH ×3 (08:49→20:35)
[2016-08-16] MEDS: morphine (ER) 15 MG TAB PO SCH ×3 (08:50→19:59)
[2016-08-16] MEDS: ENOXAPARIN 40 MG/0.4 ML SYG SC SCH (08:51)
[2016-08-16] MEDS: RANOLAZINE (SR) 500 MG TAB PO SCH ×2 (08:54→20:35)
[2016-08-16 10:24] LABS: CHOL/HDL RATIO 5.1 RATIO
--- NOTE | 2016-08-16 12:02 | PN ---
Date/Time of Note Date/Time of Note DATE: 08/16/16 TIME: 11:56 Assessment/Plan VTE Prophylaxis VTE Prophylaxis Intervention: SCD's Lines/Catheters IV Catheter Type (from [facility]): [place] Urinary Cath still in place: No Assessment/Plan Chief Complaint/Hosp Course 1. Angina 2. Coronary artery disease, status post coronary bypass 3. Cardiomyopathy . 4. History of cardioverter-defibrillator. 5. History of a percutaneous transluminal coronary angioplasty 6. Hypertension, under reasonable control. 7. Dyslipidemia. 8. . 9. Diabetes mellitus.controlled. 10. Seizure disorder, controlled. Problems: Assessment/Plan 1. Continue DM management 22. CArdiac monitoring, currently SR Subjective 24 Hr Interval Summary Constitutional: poor po Eyes: no complaints ENT: no complaints Respiratory: shortness of breath Cardiovascular: chest pain Gastrointestinal: no complaints Genitourinary: no complaints Musculoskeletal: bone/joint pain Skin: no complaints Neurologic: no complaints Endocrine: no complaints Exam/Review of Systems Vital Signs Vitals Vital Signs Date Time Temp Pulse Resp B/P Pulse Ox O2 Delivery O2 Flow Rate FiO2 08/16/16 09:03 60 08/16/16 08:20 97.4 18 127/62 08/16/16 08:09 Nasal Cannula 2.0 08/16/16 04:00 100 Intake and Output 08/15/16 08/15/16 08/16/16 15:00 23:00 07:00 Intake Total 400 ml Output Total 1500 ml Balance -1100 ml Exam Constitutional: alert, distress, oriented Psych: no complaints Head: normocephalic Eyes: nl conjunctiva ENMT: nl external ears & nose Neck: supple Respiratory: diminished breath sounds Cardiovascular: regular rate and rhythm Gastrointestinal: tender Genitourinary - Male: nl penis Musculoskeletal: other (weakness) 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 Results Result Diagram: 08/15/16 0020 08/15/16 0020 Results 24 hrs Laboratory Tests Test 08/15/16 12:35 08/15/16 14:00 08/15/16 15:05 08/15/16 17:23 Troponin I 0.015 Bedside Glucose 168 286 H Bedside Urine Blood Trace-intact H Bedside Urine Glucose (UA) Negative Bedside Urine Ketones (LAB) Negative Bedside Urine Leukocyte Esterase (L Negative Bedside Urine Nitrite (LAB) Negative Bedside Urine Protein (LAB) Negative Bedside Urine pH (LAB) 5.5 Test 08/15/16 19:29 08/16/16 01:39 08/16/16 07:52 08/16/16 09:35 Bedside Glucose 275 H 116 95 Cholesterol Level 212 H Cholesterol/HDL Ratio 5.1 HDL Cholesterol 41 LDL Cholesterol, Calculated 117 Triglycerides Level 272 H Test 08/16/16 11:26 Bedside Glucose 221 H Medications Medications Current Medications Nitroglycerin/ Dextrose (Nitroglycerin 50 Mg/D5W (Pmx)) 250 ml @ 0 mls/hr TITRATE IV Last administered on 08/15/16 02:39; Admin Dose 1.5 MLS/HR; Start 08/15/16 at 02:30 Amlodipine Besylate (Norvasc) 5 mg DAILY PO Last administered on 08/16/16 08: 48; Admin Dose 5 MG; Start 08/15/16 at 09:00 Aspirin (Aspirin) 81 mg DAILY PO Last administered on 08/16/16 08:48; Admin Dose 81 MG; Start 08/15/16 at 09:00 Atorvastatin Calcium (Lipitor) 40 mg HS PO Last administered on 08/15/16 20:34 ; Admin Dose 40 MG; Start 08/15/16 at 21:00 Baclofen (Lioresal) 10 mg BID PO Last administered on 08/16/16 08:48; Admin Dose 10 MG; Start 08/15/16 at 09:00 Carvedilol (Coreg) 12.5 mg BID PO Last administered on 08/16/16 08:48; Admin Dose 12.5 MG; Start 08/15/16 at 09:00 Clopidogrel Bisulfate (plaVIX) 75 mg DAILY PO Last administered on 08/16/16 08 :47; Admin Dose 75 MG; Start 08/15/16 at 09:00 Cyanocobalamin (Vitamin B12) 1,000 mcg DAILY PO Last administered on 08/16/16 08:49; Admin Dose 1,000 MCG; Start 08/15/16 at 09:00 Furosemide (Lasix) 40 mg BID PO Last administered on 08/16/16 08:47; Admin Dose 40 MG; Start 08/15/16 at 09:00 Gabapentin (Neurontin) 300 mg BID PO Last administered on 08/16/16 08:48; Admin Dose 300 MG; Start 08/15/16 at 09:00 Losartan Potassium (Cozaar) 50 mg Q12 PO Last administered on 08/16/16 08:48; Admin Dose 50 MG; Start 08/15/16 at 09:00 Meclizine HCl (Antivert) 25 mg Q8H PRN PO VERTIGO; Start 08/15/16 at 06:30 Nitroglycerin (Nitroglycerin (Sl Tab) 0.4 Mg) 1 tab Q5M PRN SL CHEST PAIN; Start 08/15/16 at 06:30 Phenytoin (Dilantin) 300 mg HS PO ; Start 08/15/16 at 21:00 Ranolazine (Ranexa) 1,000 mg Q12 PO Last administered on 08/16/16 08:54; Admin Dose 1,000 MG; Start 08/15/16 at 10:00 Ondansetron HCl (Zofran Inj) 4 mg Q6H PRN IV NAUSEA AND/OR VOMITING; Start at 06:30 Acetaminophen (Tylenol Liquid) 650 mg Q6H PRN PO PAIN LEVEL 1-3 OR FEVER; Start 08/15/16 at 06:30 Morphine Sulfate (morphine) 2 mg Q4H PRN IV PAIN LEVEL 7-10 Last administered on 08/16/16 09:44; Admin Dose 2 MG; Start 08/15/16 at 06:30 Zolpidem Tartrate (Ambien) 5 mg QHS PRN PO INSOMNIA; Start 08/15/16 at 06:30 Docusate Sodium (Colace) 100 mg Q12H PRN PO CONSTIPATION; Start 08/15/16 at 06: 30 Magnesium Hydroxide (Milk Of Mag) 30 ml DAILY PRN PO CONSTIPATION; Start at 06:30 Pantoprazole (Protonix Tab) 40 mg DAILY@06 PO ; Start 08/16/16 at 06:00 Enoxaparin Sodium (Lovenox) 40 mg DAILY SC Last administered on 08/16/16 08:51 ; Admin Dose 40 MG; Start 08/15/16 at 09:00 Insulin Glargine (Lantus) 15 unit DAILY@20 SC Last administered on 08/15/16 22 :13; Admin Dose 15 UNIT; Start 08/15/16 at 20:00 Miscellaneous Information 1 ea NOTE XX ; Start 08/15/16 at 07:30 Glucose (Glutose) 15 gm Q15M PRN PO DECREASED GLUCOSE; Start 08/15/16 at 07:30 Glucose (Glutose) 22.5 gm Q15M PRN PO DECREASED GLUCOSE; Start 08/15/16 at 07: 30 Dextrose (D50w Syringe) 25 ml Q15M PRN IV DECREASED GLUCOSE; Start 08/15/16 at 07:30 Dextrose (D50w Syringe) 50 ml Q15M PRN IV DECREASED GLUCOSE; Start 08/15/16 at 07:30 Glucagon (Glucagen) 1 mg Q15M PRN IM DECREASED GLUCOSE; Start 08/15/16 at 07:30 Glucose (Glutose) 15 gm Q15M PRN BUCCAL DECREASED GLUCOSE; Start 08/15/16 at 07 :30 Morphine Sulfate (Ms Contin (Er)) 15 mg Q12 PO Last administered on 08/15/16 10:25; Admin Dose 15 MG; Start 08/15/16 at 11:30 Isosorbide Dinitrate (Isordil) 20 mg TID PO Last administered on 08/16/16 08: 49; Admin Dose 20 MG; Start 08/15/16 at 13:00 Alprazolam (Xanax) 0.5 mg Q8 PO ; Start 08/15/16 at 22:00 СВЕТЛАНА WINSTON 17, 2017 12:02
--- NOTE | 2016-08-16 13:55 | CONS ---
Date/Time of Note Date/Time of Note DATE: 08/16/16 TIME: 13:50 Assessment/Plan Assessment/Plan Chief Complaint/Hosp Course IMPRESSION: 1. Angina refractory to medical therapy with known severe multivessel obstructive coronary artery disease, status post attempted RADIOTELEGRAPHIST with ongoing evaluation for cardiac transplant.-Negative troponin x 3 since admit 2. Coronary artery disease, status post coronary bypass grafting with all grafts occluded except for KNOTT to LAD with thereafter diffuse disease of the KNOTT, status post recent percutaneous transluminal coronary angioplasty to apical LAD. 3. Cardiomyopathy with severely depressed left ventricular ejection fraction approximately 15% by outside hospital echocardiogram at [facility] 07/31/2016. 4. History of automatic implantable cardioverter-defibrillator. 5. History of a percutaneous transluminal coronary angioplasty and stent placement prior to obtuse marginal 11/2014, now most recently PTCA alone to apical LAD. 6. Hypertension, under reasonable control. 7. Dyslipidemia. 8. Possible development of vascular dementia. 9. Diabetes mellitus. 10. Seizure disorder. Recc: -Tele -serial ecg's -Continue current BB/CCB/oral nitrates/losartan -Continue ranexa -Continue lasix diuresis -Continue statin -pnding neuro eval -Discussion with [facility] re possible transfer for higher level of care/ongoing transplant eval Problems: Consultation Date/Type/Reason Admit Date/Time Aug 15, 2016 at 06:28 Initial Consult Date 08/15/2016 Type of Consultation: Cardiology Reason for Consultation angina Referring Provider: CARLOS MARTINEZ MD Exam/Review of Systems Vital Signs Vitals Vital Signs Date Time Temp Pulse Resp B/P Pulse Ox O2 Delivery O2 Flow Rate FiO2 08/16/16 12:16 60 08/16/16 12:02 98.6 18 97/53 99 08/16/16 08:09 Nasal Cannula 2.0 Intake and Output 08/15/16 08/15/16 08/16/16 15:00 23:00 07:00 Intake Total 400 ml Output Total 1500 ml Balance -1100 ml Exam Review of Systems: CONSTITUTIONAL: No fevers, chills. PULMONARY: No sob CARDIOVASCULAR: No chest pain/palpitations GASTROINTESTINAL: No nausea/vomiting. GENITOURINARY: No hematuria/dysuria. MUSCULOSKELETAL: No myagias/arthalgias. PSYCHIATRIC: The patient denies depression. NEUROLOGIC: confused/lethargic Constitutional: alert Psych: no complaints Head: normocephalic ENMT: mucosa pink and moist Neck: jvd (9 cm wter), supple Respiratory: diminished breath sounds (at bases/B) Cardiovascular: regular rate and rhythm Gastrointestinal: non-tender, soft Musculoskeletal: muscle weakness (generalized) Extremities: edema (none) Neurological: confused, lethargic Results Result Diagram: 08/15/16 0020 08/15/16 0020 Results 24 hrs Laboratory Tests Test 08/15/16 14:00 08/15/16 15:05 08/15/16 17:23 08/15/16 19:29 Bedside Glucose 168 286 H 275 H Bedside Urine Blood Trace-intact H Bedside Urine Glucose (UA) Negative Bedside Urine Ketones (LAB) Negative Bedside Urine Leukocyte Esterase (L Negative Bedside Urine Nitrite (LAB) Negative Bedside Urine Protein (LAB) Negative Bedside Urine pH (LAB) 5.5 Test 08/16/16 01:39 08/16/16 07:52 08/16/16 09:35 08/16/16 11:26 Bedside Glucose 116 95 221 H Cholesterol Level 212 H Cholesterol/HDL Ratio 5.1 HDL Cholesterol 41 LDL Cholesterol, Calculated 117 Triglycerides Level 272 H Medications Medications Current Medications Nitroglycerin/ Dextrose (Nitroglycerin 50 Mg/D5W (Pmx)) 250 ml @ 0 mls/hr TITRATE IV Last administered on 08/15/16 02:39; Admin Dose 1.5 MLS/HR; Start 08/15/16 at 02:30 Amlodipine Besylate (Norvasc) 5 mg DAILY PO Last administered on 08/16/16 08: 48; Admin Dose 5 MG; Start 08/15/16 at 09:00 Aspirin (Aspirin) 81 mg DAILY PO Last administered on 08/16/16 08:48; Admin Dose 81 MG; Start 08/15/16 at 09:00 Atorvastatin Calcium (Lipitor) 40 mg HS PO Last administered on 08/15/16 20:34 ; Admin Dose 40 MG; Start 08/15/16 at 21:00 Baclofen (Lioresal) 10 mg BID PO Last administered on 08/16/16 08:48; Admin Dose 10 MG; Start 08/15/16 at 09:00 Carvedilol (Coreg) 12.5 mg BID PO Last administered on 08/16/16 08:48; Admin Dose 12.5 MG; Start 08/15/16 at 09:00 Clopidogrel Bisulfate (plaVIX) 75 mg DAILY PO Last administered on 08/16/16 08 :47; Admin Dose 75 MG; Start 08/15/16 at 09:00 Cyanocobalamin (Vitamin B12) 1,000 mcg DAILY PO Last administered on 08/16/16 08:49; Admin Dose 1,000 MCG; Start 08/15/16 at 09:00 Furosemide (Lasix) 40 mg BID PO Last administered on 08/16/16 08:47; Admin Dose 40 MG; Start 08/15/16 at 09:00 Gabapentin (Neurontin) 300 mg BID PO Last administered on 08/16/16 08:48; Admin Dose 300 MG; Start 08/15/16 at 09:00 Losartan Potassium (Cozaar) 50 mg Q12 PO Last administered on 08/16/16 08:48; Admin Dose 50 MG; Start 08/15/16 at 09:00 Meclizine HCl (Antivert) 25 mg Q8H PRN PO VERTIGO; Start 08/15/16 at 06:30 Nitroglycerin (Nitroglycerin (Sl Tab) 0.4 Mg) 1 tab Q5M PRN SL CHEST PAIN; Start 08/15/16 at 06:30 Phenytoin (Dilantin) 300 mg HS PO ; Start 08/15/16 at 21:00 Ranolazine (Ranexa) 1,000 mg Q12 PO Last administered on 08/16/16 08:54; Admin Dose 1,000 MG; Start 08/15/16 at 10:00 Ondansetron HCl (Zofran Inj) 4 mg Q6H PRN IV NAUSEA AND/OR VOMITING; Start at 06:30 Acetaminophen (Tylenol Liquid) 650 mg Q6H PRN PO PAIN LEVEL 1-3 OR FEVER; Start 08/15/16 at 06:30 Morphine Sulfate (morphine) 2 mg Q4H PRN IV PAIN LEVEL 7-10 Last administered on 08/16/16 09:44; Admin Dose 2 MG; Start 08/15/16 at 06:30 Zolpidem Tartrate (Ambien) 5 mg QHS PRN PO INSOMNIA; Start 08/15/16 at 06:30 Docusate Sodium (Colace) 100 mg Q12H PRN PO CONSTIPATION; Start 08/15/16 at 06: 30 Magnesium Hydroxide (Milk Of Mag) 30 ml DAILY PRN PO CONSTIPATION; Start at 06:30 Pantoprazole (Protonix Tab) 40 mg DAILY@06 PO ; Start 08/16/16 at 06:00 Enoxaparin Sodium (Lovenox) 40 mg DAILY SC Last administered on 08/16/16 08:51 ; Admin Dose 40 MG; Start 08/15/16 at 09:00 Insulin Glargine (Lantus) 15 unit DAILY@20 SC Last administered on 08/15/16 22 :13; Admin Dose 15 UNIT; Start 08/15/16 at 20:00 Miscellaneous Information 1 ea NOTE XX ; Start 08/15/16 at 07:30 Glucose (Glutose) 15 gm Q15M PRN PO DECREASED GLUCOSE; Start 08/15/16 at 07:30 Glucose (Glutose) 22.5 gm Q15M PRN PO DECREASED GLUCOSE; Start 08/15/16 at 07: 30 Dextrose (D50w Syringe) 25 ml Q15M PRN IV DECREASED GLUCOSE; Start 08/15/16 at 07:30 Dextrose (D50w Syringe) 50 ml Q15M PRN IV DECREASED GLUCOSE; Start 08/15/16 at 07:30 Glucagon (Glucagen) 1 mg Q15M PRN IM DECREASED GLUCOSE; Start 08/15/16 at 07:30 Glucose (Glutose) 15 gm Q15M PRN BUCCAL DECREASED GLUCOSE; Start 08/15/16 at 07 :30 Morphine Sulfate (Ms Contin (Er)) 15 mg Q12 PO Last administered on 08/15/16 10:25; Admin Dose 15 MG; Start 08/15/16 at 11:30 Isosorbide Dinitrate (Isordil) 20 mg TID PO Last administered on 08/16/16 08: 49; Admin Dose 20 MG; Start 08/15/16 at 13:00 Alprazolam (Xanax) 0.5 mg Q8 PO Last administered on 08/16/16 13:26; Admin Dose 0.5 MG; Start 08/15/16 at 22:00 NICHOL ACOSTA 17, 2017 13:55
--- NOTE | 2016-08-16 15:48 | RADRPT ---
PROCEDURE: US Retroperitoneum. CLINICAL INDICATION: Abnormal renal function tests TECHNIQUE: Multiple sonographic images of the retroperitoneum were obtained. Evaluation of the ki dneys and bladder was performed as well as visualization of the aorta and other retroperitoneal stru ctures using a curved array transducer. The images were reviewed on a PACS workstation. COMPARISON: No prior studies are available for comparison. FINDINGS: The kidneys are well visualized. The right kidney measures 10.9 cm in length. The left kidney measu res 10.9 cm in length. There are no focal areas of abnormal echogenicity. There is no mass, calculus , or obstructive uropathy. No perinephric fluid collection is seen. The aorta and IVC are of norm al caliber. There is no evidence for aortic aneurysm. The bladder is unremarkable. IMPRESSION: Unremarkable retroperitoneal ultrasound. RPTAT: RR .Vladimir Reyes MD, Date Time Electronically viewed and signed by .Vladimir Reyes MD, on 08/16/2016 15:47 .A/
[2016-08-16] MEDS: FUROSEMIDE 40 MG INJ IV SCH (17:29)
[2016-08-16] MEDS: INSULIN GLARGINE [LANtus] 3 ML PEN SC SCH (19:46)
[2016-08-16] MEDS: ATORVASTATIN 40 MG TAB PO SCH (20:35)
[2016-08-16] MEDS: HYDROmorphONE 1 MG/ML SYG IV PRN (20:36)
[2016-08-16] MEDS: PHENYTOIN 100 MG CAP PO SCH (20:36)
[2016-08-17] VITALS (12 sets, daily range): BP systolic 104–136; BP diastolic 59–97; PULSE 60; RESP 16–19
[2016-08-17] MEDS: HYDROmorphONE 1 MG/ML SYG IV PRN ×4 (01:54→20:17)
[2016-08-17] MEDS: PANTOPRAZOLE (EC) 40 MG TAB PO SCH (05:14)
[2016-08-17] MEDS: FUROSEMIDE 40 MG INJ IV SCH ×2 (05:18→17:37)
[2016-08-17] MEDS: INSULIN ASPART [NOVOLOG] 3 ML PEN SC SCH ×4 (08:00→20:22)
[2016-08-17 08:45] LABS: ADD UMIC NO; URINE BILIRUBIN (Dip) NEGATIVE (NEGATIVE); URINE BLOOD (Dip) NEGATIVE (NEGATIVE); URINE COLOR YELLOW (YELLOW); URINE GLUCOSE (Dip) NEGATIVE (NEGATIVE); URINE KETONES (Dip) NEGATIVE (NEGATIVE); URINE LEUKOCYTE ESTERASE (Dip) NEGATIVE (NEGATIVE); URINE NITRITE (Dip) NEGATIVE (NEGATIVE); URINE TOTAL PROTEIN (Dip) NEGATIVE (NEGATIVE); URINE UROBILINOGEN (Dip) 0.2 E.U./dL (0.1-1.0)
[2016-08-17] MEDS: AMLODIPINE 5 MG TAB PO SCH (09:00)
[2016-08-17] MEDS: BACLOFEN 10 MG TAB PO SCH ×2 (09:00→20:21)
[2016-08-17] MEDS: LOSARTAN 50 MG TAB PO SCH ×2 (09:00→20:20)
[2016-08-17 09:01] LABS: BENZODIAZEPINES Negative (NEGATIVE)
[2016-08-17 09:10] LABS: BARBITURATES Negative (NEGATIVE); CANNABINOIDS Negative (NEGATIVE); COCAINE Negative (NEGATIVE); OPIATES Positive (NEGATIVE)
[2016-08-17] MEDS: ENOXAPARIN 40 MG/0.4 ML SYG SC SCH (09:16)
[2016-08-17] MEDS: GABAPENTIN 300 MG CAP PO SCH ×2 (09:17→20:21)
[2016-08-17] MEDS: CLOPIDOGREL 75 MG TAB PO SCH (09:17)
[2016-08-17] MEDS: ASPIRIN 81 MG TAB PO SCH (09:17)
[2016-08-17] MEDS: CYANOCOBALAMIN 500 MCG TAB PO SCH (09:17)
[2016-08-17] MEDS: morphine (ER) 15 MG TAB PO SCH ×2 (09:19→20:21)
[2016-08-17] MEDS: RANOLAZINE (SR) 500 MG TAB PO SCH ×2 (09:19→20:21)
[2016-08-17] MEDS: ISOSORBIDE DINITRATE 20 MG TAB PO SCH ×3 (09:21→20:20)
--- NOTE | 2016-08-17 13:31 | PN ---
Date/Time of Note Date/Time of Note DATE: 08/17/16 TIME: 13:28 Assessment/Plan VTE Prophylaxis VTE Prophylaxis Intervention: LMWH Lines/Catheters IV C[facility]ter Type [facility]from [facility] [place] Central line still needed: No Urinary Cath still in place: No Assessment/Plan Chief Complaint/Hosp Course 1. Angina, not improved. Pt has often SOB 2. Coronary artery disease, status post coronary bypass 3. Cardiomyopathy . 4. History of cardioverter-defibrillator. 5. History of a percutaneous transluminal coronary angioplasty 6. Hypertension, under reasonable control. 7. Dyslipidemia. 8. Diabetes mellitus.controlled. 9 Seizure disorder, controlled. Problems: Assessment/Plan 1. Per cardiology continue telemonitoring and treatment Subjective 24 Hr Interval Summary Constitutional: poor po, requiring O2 Eyes: no complaints ENT: no complaints Respiratory: shortness of breath Cardiovascular: chest pain, lightheadedness Gastrointestinal: no complaints Genitourinary: no complaints Musculoskeletal: restricted range of motion Skin: no complaints Neurologic: no complaints Exam/Review of Systems Vital Signs Vitals Vital Signs Date Time Temp Pulse Resp B/P Pulse Ox O2 Delivery O2 Flow Rate FiO2 08/17/16 12:28 60 08/17/16 11:45 97.6 16 136/69 99 08/17/16 08:00 Nasal Cannula 3.0 Intake and Output 08/16/16 08/16/16 08/17/16 15:00 23:00 07:00 Intake Total 800 ml 400 ml Output Total 850 ml Balance 800 ml -450 ml Exam Constitutional: alert, distress, oriented Head: normocephalic ENMT: nl external ears & nose Neck: supple Respiratory: diminished breath sounds, labored breathing Cardiovascular: regular rate and rhythm Gastrointestinal: soft Genitourinary - Male: nl penis Musculoskeletal: muscle weakness Results Result Diagram: 08/15/16 0020 08/15/16 0020 Results 24 hrs Laboratory Tests Test 08/16/16 17:10 08/16/16 19:40 08/17/16 04:10 08/17/16 04:43 Bedside Glucose 195 283 H 123 Urine Amphetamines Screen Negative Urine Barbiturates Negative Urine Benzodiazepines Screen Negative Urine Bilirubin NEGATIVE Urine Cannabinoids Negative Urine Clarity CLEAR Urine Cocaine Screen Negative Urine Color YELLOW Urine Glucose NEGATIVE Urine Hemoglobin NEGATIVE Urine Ketones NEGATIVE Urine Leukocyte Esterase NEGATIVE Urine Nitrite NEGATIVE Urine Opiates Screen Positive Urine Specific [place] 1.025 Urine Total Protein NEGATIVE Urine Urobilinogen 0.2 E.U./dL Urine pH 5.5 Test 08/17/16 08:03 08/17/16 12:00 Bedside Glucose 116 174 Medications Medications Current Medications Nitroglycerin/ Dextrose (Nitroglycerin 50 Mg/D5W (Pmx)) 250 ml @ 0 mls/hr TITRATE IV Last administered on 08/15/16 02:39; Admin Dose 1.5 MLS/HR; Start 08/15/16 at 02:30 Amlodipine Besylate (Norvasc) 5 mg DAILY PO Last administered on 08/16/16 08: 48; Admin Dose 5 MG; Start 08/15/16 at 09:00 Aspirin (Aspirin) 81 mg DAILY PO Last administered on 08/17/16 09:17; Admin Dose 81 MG; Start 08/15/16 at 09:00 Atorvastatin Calcium (Lipitor) 40 mg HS PO Last administered on 08/16/16 20:35 ; Admin Dose 40 MG; Start 08/15/16 at 21:00 Baclofen (Lioresal) 10 mg BID PO Last administered on 08/16/16 20:35; Admin Dose 10 MG; Start 08/15/16 at 09:00 Carvedilol (Coreg) 12.5 mg BID PO Last administered on 08/17/16 09:20; Admin Dose 12.5 MG; Start 08/15/16 at 09:00 Clopidogrel Bisulfate (plaVIX) 75 mg DAILY PO Last administered on 08/17/16 09 :17; Admin Dose 75 MG; Start 08/15/16 at 09:00 Cyanocobalamin (Vitamin B12) 1,000 mcg DAILY PO Last administered on 08/17/16 09:17; Admin Dose 1,000 MCG; Start 08/15/16 at 09:00 Gabapentin (Neurontin) 300 mg BID PO Last administered on 08/17/16 09:17; Admin Dose 300 MG; Start 08/15/16 at 09:00 Losartan Potassium (Cozaar) 50 mg Q12 PO Last administered on 08/16/16 08:48; Admin Dose 50 MG; Start 08/15/16 at 09:00 Meclizine HCl (Antivert) 25 mg Q8H PRN PO VERTIGO; Start 08/15/16 at 06:30 Nitroglycerin (Nitroglycerin (Sl Tab) 0.4 Mg) 1 tab Q5M PRN SL CHEST PAIN; Start 08/15/16 at 06:30 Phenytoin (Dilantin) 300 mg HS PO ; Start 08/15/16 at 21:00 Ranolazine (Ranexa) 1,000 mg Q12 PO Last administered on 08/17/16 09:19; Admin Dose 1,000 MG; Start 08/15/16 at 10:00 Ondansetron HCl (Zofran Inj) 4 mg Q6H PRN IV NAUSEA AND/OR VOMITING; Start at 06:30 Acetaminophen (Tylenol Liquid) 650 mg Q6H PRN PO PAIN LEVEL 1-3 OR FEVER; Start 08/15/16 at 06:30 Zolpidem Tartrate (Ambien) 5 mg QHS PRN PO INSOMNIA Last administered on 23:02; Admin Dose 5 MG; Start 08/15/16 at 06:30 Docusate Sodium (Colace) 100 mg Q12H PRN PO CONSTIPATION; Start 08/15/16 at 06: 30 Magnesium Hydroxide (Milk Of Mag) 30 ml DAILY PRN PO CONSTIPATION; Start at 06:30 Pantoprazole (Protonix Tab) 40 mg DAILY@06 PO ; Start 08/16/16 at 06:00 Enoxaparin Sodium (Lovenox) 40 mg DAILY SC Last administered on 08/17/16 09:16 ; Admin Dose 40 MG; Start 08/15/16 at 09:00 Insulin Glargine (Lantus) 15 unit DAILY@20 SC Last administered on 08/16/16 19 :46; Admin Dose 15 UNIT; Start 08/15/16 at 20:00 Miscellaneous Information 1 ea NOTE XX ; Start 08/15/16 at 07:30 Glucose (Glutose) 15 gm Q15M PRN PO DECREASED GLUCOSE; Start 08/15/16 at 07:30 Glucose (Glutose) 22.5 gm Q15M PRN PO DECREASED GLUCOSE; Start 08/15/16 at 07: 30 Dextrose (D50w Syringe) 25 ml Q15M PRN IV DECREASED GLUCOSE; Start 08/15/16 at 07:30 Dextrose (D50w Syringe) 50 ml Q15M PRN IV DECREASED GLUCOSE; Start 08/15/16 at 07:30 Glucagon (Glucagen) 1 mg Q15M PRN IM DECREASED GLUCOSE; Start 08/15/16 at 07:30 Glucose (Glutose) 15 gm Q15M PRN BUCCAL DECREASED GLUCOSE; Start 08/15/16 at 07 :30 Morphine Sulfate (Ms Contin (Er)) 15 mg Q12 PO Last administered on 08/17/16 09:19; Admin Dose 15 MG; Start 08/15/16 at 11:30 Isosorbide Dinitrate (Isordil) 20 mg TID PO Last administered on 08/17/16 09: 21; Admin Dose 20 MG; Start 08/15/16 at 13:00 Alprazolam (Xanax) 0.5 mg Q8 PO Last administered on 08/16/16 13:26; Admin Dose 0.5 MG; Start 08/15/16 at 22:00 Hydromorphone HCl (Dilaudid) 1 mg Q4H PRN IV PAIN Last administered on 11:46; Admin Dose 1 MG; Start 08/16/16 at 20:00 СВЕТЛАНА WINSTON 18, 2017 13:30
[2016-08-17] MEDS: ALPRAZOLAM 0.25 MG TAB PO SCH ×2 (14:16→20:22)
[2016-08-17] MEDS: PHENYTOIN 100 MG CAP PO SCH (20:20)
[2016-08-17] MEDS: ATORVASTATIN 40 MG TAB PO SCH (20:21)
[2016-08-17] MEDS: INSULIN GLARGINE [LANtus] 3 ML PEN SC SCH (20:22)
[2016-08-18] VITALS (12 sets, daily range): BP systolic 123–152; BP diastolic 59–75; PULSE 60–64; RESP 17–18
[2016-08-18] MEDS: HYDROmorphONE 1 MG/ML SYG IV PRN ×5 (00:17→17:49)
[2016-08-18] MEDS: ALPRAZOLAM 0.25 MG TAB PO SCH ×4 (04:36→21:33)
[2016-08-18] MEDS: PANTOPRAZOLE (EC) 40 MG TAB PO SCH (04:36)
[2016-08-18] MEDS: FUROSEMIDE 40 MG INJ IV SCH ×2 (05:34→17:50)
[2016-08-18 07:32] LABS: ADD SCAN DIFF NO
[2016-08-18 07:36] LABS: BASOPHIL # 0.1 10^3/ul (0.0-0.1); BASOPHILS % 0.9 % (0.0-2.0); EOSINOPHILS # 0.2 10^3/ul (0.0-0.5); EOSINOPHILS % 2.8 % (0.0-7.0); HEMATOCRIT 34.6 % (42.0-52.0); HEMOGLOBIN 11.4 g/dl (14.0-18.0); LYMPHOCYTES # 1.7 10^3/ul (0.8-2.9); LYMPHOCYTES % 24.8 % (15.0-51.0); MEAN CORPUSCULAR HGB CONC 32.9 g/dl (32.0-37.0); MEAN PLATELET VOLUME 9.7 fl (7.4-10.4); MONOCYTE # 0.7 10^3/ul (0.3-0.9); MONOCYTES % 9.7 % (0.0-11.0); NEUTROPHIL # 4.1 10^3/ul (1.6-7.5); NEUTROPHILS % 61.2 % (39.0-77.0); PLATELET COUNT 239 10^3/UL (140-415); RED BLOOD COUNT 3.93 10^6/ul (4.70-6.10); RED CELL DISTRIBUTION WIDTH 14.4 % (11.5-14.5); WHITE BLOOD COUNT 6.8 10^3/ul (4.8-10.8)
[2016-08-18 07:56] LABS: ALBUMIN 3.8 g/dl (3.3-4.9)
[2016-08-18 07:57] LABS: POTASSIUM 3.7 mmol/L (3.5-5.1)
[2016-08-18 07:59] LABS: ALBUMIN/GLOBULIN RATIO 1.15; BILIRUBIN,INDIRECT 0.2 mg/dl (0-1.1); BILIRUBIN,TOTAL 0.2 mg/dl (0.2-1.3); CREATININE 0.78 mg/dl (0.61-1.24); TOTAL PROTEIN 7.1 g/dl (6.1-8.1)
[2016-08-18 08:00] LABS: CALCIUM 9.1 mg/dl (8.4-10.2)
[2016-08-18 08:04] LABS: TROPONIN-I 0.024 ng/ml (0.00-0.12)
[2016-08-18] MEDS: NITROGLYCERIN (SL) 0.4 MG TAB SL PRN ×2 (08:38→08:58)
[2016-08-18] MEDS: GABAPENTIN 300 MG CAP PO SCH ×3 (09:00→21:32)
[2016-08-18] MEDS: AMLODIPINE 5 MG TAB PO SCH ×2 (09:00→10:02)
[2016-08-18] MEDS: BACLOFEN 10 MG TAB PO SCH ×3 (09:00→21:33)
[2016-08-18] MEDS: LOSARTAN 50 MG TAB PO SCH ×3 (09:00→21:33)
[2016-08-18] MEDS: ASPIRIN 81 MG TAB PO SCH (09:59)
[2016-08-18] MEDS: CYANOCOBALAMIN 500 MCG TAB PO SCH (09:59)
[2016-08-18] MEDS: CLOPIDOGREL 75 MG TAB PO SCH (09:59)
[2016-08-18] MEDS: RANOLAZINE (SR) 500 MG TAB PO SCH ×2 (10:00→21:32)
[2016-08-18] MEDS: ISOSORBIDE DINITRATE 20 MG TAB PO SCH ×3 (10:01→21:33)
[2016-08-18] MEDS: morphine (ER) 15 MG TAB PO SCH ×2 (10:03→21:31)
[2016-08-18] MEDS: INSULIN ASPART [NOVOLOG] 3 ML PEN SC SCH ×4 (10:10→21:00)
[2016-08-18] MEDS: ENOXAPARIN 40 MG/0.4 ML SYG SC SCH (10:11)
--- NOTE | 2016-08-18 15:45 | CONS ---
Date/Time of Note Date/Time of Note DATE: 08/18/16 TIME: 15:30 Assessment/Plan Assessment/Plan Chief Complaint/Hosp Course Difficulty walking Problems: Additional Assessment/Plan Patient is a 56 years old male with past medical hstory of CAD, history of diabetes mellitus, hypertension, congestive heart failure, angina, s/p CABG, hypertension, anemia, dyslipidemia, diabetes mellitus, admitted with chest pain. He also reported difficulty in walking and was seen by stroke neurologist. Carotid ultrasound showed left ICA blockage. CT brain showed advanced atrophy for the patient's provided age without evidence of hemorrhage or acute ischemic infarct, chronic appearing left coronal radiata, pontine and centrum semiovale lacunar infarcts, right internal capsule, left lentiform nucleus, progressive worsening of chronic small vessel ischemic white matter disease particularly in the left cerebral hemisphere compared to the prior study. MRI of brain could not be done due to pacemaker. CTA of head showed complete occlusion of left ICA and 80% stenosis of right ICA. Plan 1. Repeat CT brain 2. Vascular surgery evaluation 3. Continue Aspirin and Plavix 4. 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 PT evaluation and treatment 6. Dr. Jaffe will follow in AM Consultation Date/Type/Reason Admit Date/Time Aug 15, 2016 at 06:28 Date of Consultation: Aug 18, 2016 Type of Consultation: Neurology Reason for Consultation Difficulty in walking Referring Provider: CARLOS MARTINEZ MD Hx of Present Illness Patient is a 56 years old male with past medical hstory of CAD, history of diabetes mellitus, hypertension, congestive heart failure, angina, s/p CABG, hypertension, anemia, dyslipidemia, diabetes mellitus, admitted with chest pain. He also reported difficulty in walking and was seen by stroke neurologist. Carotid ultrasound showed left ICA blockage. CT brain showed advanced atrophy for the patient's provided age without evidence of hemorrhage or acute ischemic infarct, chronic appearing left coronal radiata, pontine and centrum semiovale lacunar infarcts, right internal capsule, left lentiform nucleus, progressive worsening of chronic small vessel ischemic white matter disease particularly in the left cerebral hemisphere compared to the prior study. MRI of brain could not be done due to pacemaker. Constitutional: poor po, requiring O2 Eyes: no complaints ENT: no complaints Respiratory: shortness of breath Cardiovascular: chest pain, lightheadedness Gastrointestinal: no complaints Genitourinary: no complaints Musculoskeletal: restricted range of motion Skin: no complaints Neurologic: no complaints Endocrine: no complaints Psychological: no complaints Past Medical History Medical History: angina, congestive heart failure Past Surgical History Past Surgical Hx: angioplasty Social History Alcohol Use: none Smoking Status: Never smoker Drug Use: none Exam/Review of Systems Vital Signs Vitals Vital Signs Date Time Temp Pulse Resp B/P Pulse Ox O2 Delivery O2 Flow Rate FiO2 08/18/16 12:07 98.6 60 17 135/68 97 08/17/16 19:53 Nasal Cannula 2.0 Intake and Output 08/17/16 08/17/16 08/18/16 15:00 23:00 07:00 Intake Total 1300 ml 600 ml Output Total 400 ml 200 ml 1100 ml Balance -400 ml 1100 ml -500 ml Exam Constitutional: alert, oriented, well developed Psych: nl mood/affect, no complaints Head: atraumatic, normocephalic Eyes: EOMI, nl conjunctiva, nl lids ENMT: nl external ears & nose, nl lips & teeth, nl nasal mucosa & septum Neck: non-tender, supple Respiratory: clear to auscultation, normal air movement Cardiovascular: nl pulses, regular rate and rhythm Gastrointestinal: nl liver, spleen, non-tender, soft Musculoskeletal: nl extremities to inspection Extremities: normal pulses Neurological: DUMP ATTENDANT II-XII intact, nl mental status, nl speech, other (Mild right lower extremity weakness, reflexes 2= all over) Skin: nl turgor, rash or lesions Lymph: nl lymph nodes Results Result Diagram: 08/18/16 0706 08/18/16 0706 Results 24 hrs Laboratory Tests Test 08/17/16 17:16 08/17/16 19:32 08/17/16 23:11 08/18/16 07:06 Bedside Glucose 177 237 H 170 Alanine Aminotransferase (ALT/SGPT) 27 Albumin 3.8 Albumin/Globulin Ratio 1.15 Alkaline Phosphatase 56 Anion Gap 16 Aspartate Amino Transf (AST/SGOT) 26 Basophils # 0.1 Basophils % 0.9 Blood Urea Nitrogen 24 H Calcium Level 9.1 Carbon Dioxide Level 31 Chloride Level 96 L Creatinine 0.78 Direct Bilirubin 0.00 Eosinophils # 0.2 Eosinophils % 2.8 Globulin 3.30 H Glucose Level 179 Hematocrit 34.6 L Hemoglobin 11.4 L Indirect Bilirubin 0.2 Lymphocytes # 1.7 Lymphocytes % 24.8 Mean Corpuscular Hemoglobin 29.0 Mean Corpuscular Hemoglobin Concent 32.9 Mean Corpuscular Volume 88.0 Mean Platelet Volume 9.7 Monocytes # 0.7 Monocytes % 9.7 Neutrophils # 4.1 Neutrophils % 61.2 Nucleated Red Blood Cells # 0.0 Nucleated Red Blood Cells % 0.0 Platelet Count 239 # Potassium Level 3.7 Red Blood Count 3.93 L Red Cell Distribution Width 14.4 Sodium Level 139 Total Bilirubin 0.2 Total Protein 7.1 Troponin I 0.024 White Blood Count 6.8 Test 08/18/16 07:59 08/18/16 13:00 Bedside Glucose 208 276 H Medications Medications Current Medications Nitroglycerin/ Dextrose (Nitroglycerin 50 Mg/D5W (Pmx)) 250 ml @ 0 mls/hr TITRATE IV Last administered on 08/15/16 02:39; Admin Dose 1.5 MLS/HR; Start 08/15/16 at 02:30 Amlodipine Besylate (Norvasc) 5 mg DAILY PO Last administered on 08/16/16 08: 48; Admin Dose 5 MG; Start 08/15/16 at 09:00 Aspirin (Aspirin) 81 mg DAILY PO Last administered on 08/18/16 09:59; Admin Dose 81 MG; Start 08/15/16 at 09:00 Atorvastatin Calcium (Lipitor) 40 mg HS PO Last administered on 08/17/16 20:21 ; Admin Dose 40 MG; Start 08/15/16 at 21:00 Baclofen (Lioresal) 10 mg BID PO Last administered on 08/16/16 20:35; Admin Dose 10 MG; Start 08/15/16 at 09:00 Carvedilol (Coreg) 12.5 mg BID PO Last administered on 08/18/16 10:01; Admin Dose 12.5 MG; Start 08/15/16 at 09:00 Clopidogrel Bisulfate (plaVIX) 75 mg DAILY PO Last administered on 08/18/16 09 :59; Admin Dose 75 MG; Start 08/15/16 at 09:00 Cyanocobalamin (Vitamin B12) 1,000 mcg DAILY PO Last administered on 08/18/16 09:59; Admin Dose 1,000 MCG; Start 08/15/16 at 09:00 Gabapentin (Neurontin) 300 mg BID PO Last administered on 08/17/16 09:17; Admin Dose 300 MG; Start 08/15/16 at 09:00 Losartan Potassium (Cozaar) 50 mg Q12 PO Last administered on 08/16/16 08:48; Admin Dose 50 MG; Start 08/15/16 at 09:00 Meclizine HCl (Antivert) 25 mg Q8H PRN PO VERTIGO; Start 08/15/16 at 06:30 Nitroglycerin (Nitroglycerin (Sl Tab) 0.4 Mg) 1 tab Q5M PRN SL CHEST PAIN Last administered on 08/18/16 08:58; Admin Dose 1 TAB; Start 08/15/16 at 06:30 Phenytoin (Dilantin) 300 mg HS PO ; Start 08/15/16 at 21:00 Ranolazine (Ranexa) 1,000 mg Q12 PO Last administered on 08/18/16 10:00; Admin Dose 1,000 MG; Start 08/15/16 at 10:00 Ondansetron HCl (Zofran Inj) 4 mg Q6H PRN IV NAUSEA AND/OR VOMITING; Start at 06:30 Acetaminophen (Tylenol Liquid) 650 mg Q6H PRN PO PAIN LEVEL 1-3 OR FEVER; Start 08/15/16 at 06:30 Zolpidem Tartrate (Ambien) 5 mg QHS PRN PO INSOMNIA Last administered on 23:02; Admin Dose 5 MG; Start 08/15/16 at 06:30 Docusate Sodium (Colace) 100 mg Q12H PRN PO CONSTIPATION; Start 08/15/16 at 06: 30 Magnesium Hydroxide (Milk Of Mag) 30 ml DAILY PRN PO CONSTIPATION; Start at 06:30 Pantoprazole (Protonix Tab) 40 mg DAILY@06 PO ; Start 08/16/16 at 06:00 Enoxaparin Sodium (Lovenox) 40 mg DAILY SC Last administered on 08/18/16 10:11 ; Admin Dose 40 MG; Start 08/15/16 at 09:00 Insulin Glargine (Lantus) 15 unit DAILY@20 SC Last administered on 08/17/16 20 :22; Admin Dose 15 UNIT; Start 08/15/16 at 20:00 Miscellaneous Information 1 ea NOTE XX ; Start 08/15/16 at 07:30 Glucose (Glutose) 15 gm Q15M PRN PO DECREASED GLUCOSE; Start 08/15/16 at 07:30 Glucose (Glutose) 22.5 gm Q15M PRN PO DECREASED GLUCOSE; Start 08/15/16 at 07: 30 Dextrose (D50w Syringe) 25 ml Q15M PRN IV DECREASED GLUCOSE; Start 08/15/16 at 07:30 Dextrose (D50w Syringe) 50 ml Q15M PRN IV DECREASED GLUCOSE; Start 08/15/16 at 07:30 Glucagon (Glucagen) 1 mg Q15M PRN IM DECREASED GLUCOSE; Start 08/15/16 at 07:30 Glucose (Glutose) 15 gm Q15M PRN BUCCAL DECREASED GLUCOSE; Start 08/15/16 at 07 :30 Morphine Sulfate (Ms Contin (Er)) 15 mg Q12 PO Last administered on 08/18/16 10:03; Admin Dose 15 MG; Start 08/15/16 at 11:30 Isosorbide Dinitrate (Isordil) 20 mg TID PO Last administered on 08/18/16 10: 01; Admin Dose 20 MG; Start 08/15/16 at 13:00 Alprazolam (Xanax) 0.5 mg Q8 PO Last administered on 08/18/16 13:17; Admin Dose 0.5 MG; Start 08/15/16 at 22:00 Hydromorphone HCl (Dilaudid) 1 mg Q4H PRN IV PAIN Last administered on 13:35; Admin Dose 1 MG; Start 08/16/16 at 20:[address] Brain 08/15/16 IMPRESSION: 1.Advanced atrophy for the patient's provided age without evidence of hemorrhage or acute ischemic infarct. 2. Chronic appearing left coronal radiata, pontine and centrum semiovale lacunar infarcts are not present on the prior study of 05/18/2014. 3. Chronic-appearing lacunar infarcts within the right internal capsule, left lentiform nucleus with present on the prior study of 05/18/2014. 4. Progressive worsening of chronic small vessel ischemic white matter disease particularly in the left cerebral hemisphere compared to the prior study. 5. Results are discussed by telephone with emergency room physician Dr. Beard at 12:51 Physician Bharati Date Time Electronically viewed and signed by Physician Bharati on 08/15/2016 00:52 CTA of head 08/15/16 IMPRESSION: 1. Total occlusion of the left internal carotid artery approximately 10 mm beyond the origin extending intracranially. 2. Severe calcific atherosclerotic disease within the right internal carotid artery within the carotid siphon with narrowing of up to 80% utilizing NASCET criteria. 3. Total occlusion anterior temporal branch of the right middle cerebral artery at the level of the trifurcation. 4. Distal occlusion of the right posterior cerebral artery beyond the P2 segment. 5. Moderate stenosis mid P2 segment of the left posterior cerebral artery. CALL REPORT: A call report was made to [facility] DR. Beard on August 15, 2016 at 04: 30 a.m. .Eliseo Dey MD, Date Time Electronically viewed and signed by .Eliseo Dey MD, MD on 08/15/2016 04:33 SHAWN MAYES MD Aug 18, 2016 15:40
--- NOTE | 2016-08-18 15:53 | PN ---
Date/Time of Note Date/Time of Note DATE: 08/18/16 TIME: 15:51 Assessment/Plan VTE Prophylaxis VTE Prophylaxis Intervention: other Lines/Catheters IV Catheter Type (from Rust): Saline Lock Urinary Cath still in place: No Assessment/Plan Chief Complaint/Hosp Course IMPRESSION 1. Patient has carotid artery disease. 2. Coronary artery disease. 3. History of coronary artery bypass graft. 4. Atherosclerotic heart disease. 5. Angina. 6. Diabetes mellitus. 7. Dyslipidemia. 8. History of stent placement. 9. History of coronary angiogram and multiple Lexiscans. plan per neuro and vascular Problems: Subjective 24 Hr Interval Summary Subjective hx not possible: other (weakness dr montelongo to see called) Exam/Review of Systems Vital Signs Vitals Vital Signs Date Time Temp Pulse Resp B/P Pulse Ox O2 Delivery O2 Flow Rate FiO2 08/18/16 12:07 98.6 60 17 135/68 97 08/17/16 19:53 Nasal Cannula 2.0 Intake and Output 08/17/16 08/17/16 08/18/16 15:00 23:00 07:00 Intake Total 1300 ml 600 ml Output Total 400 ml 200 ml 1100 ml Balance -400 ml 1100 ml -500 ml Exam Respiratory: clear to auscultation Gastrointestinal: soft Musculoskeletal: nl extremities to inspection Extremities: normal pulses Results Result Diagram: 08/18/16 0706 08/18/16 0706 Results 24 hrs Laboratory Tests Test 08/17/16 17:16 08/17/16 19:32 08/17/16 23:11 08/18/16 07:06 Bedside Glucose 177 237 H 170 Alanine Aminotransferase (ALT/SGPT) 27 Albumin 3.8 Albumin/Globulin Ratio 1.15 Alkaline Phosphatase 56 Anion Gap 16 Aspartate Amino Transf (AST/SGOT) 26 Basophils # 0.1 Basophils % 0.9 Blood Urea Nitrogen 24 H Calcium Level 9.1 Carbon Dioxide Level 31 Chloride Level 96 L Creatinine 0.78 Direct Bilirubin 0.00 Eosinophils # 0.2 Eosinophils % 2.8 Globulin 3.30 H Glucose Level 179 Hematocrit 34.6 L Hemoglobin 11.4 L Indirect Bilirubin 0.2 Lymphocytes # 1.7 Lymphocytes % 24.8 Mean Corpuscular Hemoglobin 29.0 Mean Corpuscular Hemoglobin Concent 32.9 Mean Corpuscular Volume 88.0 Mean Platelet Volume 9.7 Monocytes # 0.7 Monocytes % 9.7 Neutrophils # 4.1 Neutrophils % 61.2 Nucleated Red Blood Cells # 0.0 Nucleated Red Blood Cells % 0.0 Platelet Count 239 # Potassium Level 3.7 Red Blood Count 3.93 L Red Cell Distribution Width 14.4 Sodium Level 139 Total Bilirubin 0.2 Total Protein 7.1 Troponin I 0.024 White Blood Count 6.8 Test 08/18/16 07:59 08/18/16 13:00 Bedside Glucose 208 276 H Medications Medications Current Medications Nitroglycerin/ Dextrose (Nitroglycerin 50 Mg/D5W (Pmx)) 250 ml @ 0 mls/hr TITRATE IV Last administered on 08/15/16 02:39; Admin Dose 1.5 MLS/HR; Start 08/15/16 at 02:30 Amlodipine Besylate (Norvasc) 5 mg DAILY PO Last administered on 08/16/16 08: 48; Admin Dose 5 MG; Start 08/15/16 at 09:00 Aspirin (Aspirin) 81 mg DAILY PO Last administered on 08/18/16 09:59; Admin Dose 81 MG; Start 08/15/16 at 09:00 Atorvastatin Calcium (Lipitor) 40 mg HS PO Last administered on 08/17/16 20:21 ; Admin Dose 40 MG; Start 08/15/16 at 21:00 Baclofen (Lioresal) 10 mg BID PO Last administered on 08/16/16 20:35; Admin Dose 10 MG; Start 08/15/16 at 09:00 Carvedilol (Coreg) 12.5 mg BID PO Last administered on 08/18/16 10:01; Admin Dose 12.5 MG; Start 08/15/16 at 09:00 Clopidogrel Bisulfate (plaVIX) 75 mg DAILY PO Last administered on 08/18/16 09 :59; Admin Dose 75 MG; Start 08/15/16 at 09:00 Cyanocobalamin (Vitamin B12) 1,000 mcg DAILY PO Last administered on 08/18/16 09:59; Admin Dose 1,000 MCG; Start 08/15/16 at 09:00 Gabapentin (Neurontin) 300 mg BID PO Last administered on 08/17/16 09:17; Admin Dose 300 MG; Start 08/15/16 at 09:00 Losartan Potassium (Cozaar) 50 mg Q12 PO Last administered on 08/16/16 08:48; Admin Dose 50 MG; Start 08/15/16 at 09:00 Meclizine HCl (Antivert) 25 mg Q8H PRN PO VERTIGO; Start 08/15/16 at 06:30 Nitroglycerin (Nitroglycerin (Sl Tab) 0.4 Mg) 1 tab Q5M PRN SL CHEST PAIN Last administered on 08/18/16 08:58; Admin Dose 1 TAB; Start 08/15/16 at 06:30 Phenytoin (Dilantin) 300 mg HS PO ; Start 08/15/16 at 21:00 Ranolazine (Ranexa) 1,000 mg Q12 PO Last administered on 08/18/16 10:00; Admin Dose 1,000 MG; Start 08/15/16 at 10:00 Ondansetron HCl (Zofran Inj) 4 mg Q6H PRN IV NAUSEA AND/OR VOMITING; Start at 06:30 Acetaminophen (Tylenol Liquid) 650 mg Q6H PRN PO PAIN LEVEL 1-3 OR FEVER; Start 08/15/16 at 06:30 Zolpidem Tartrate (Ambien) 5 mg QHS PRN PO INSOMNIA Last administered on 23:02; Admin Dose 5 MG; Start 08/15/16 at 06:30 Docusate Sodium (Colace) 100 mg Q12H PRN PO CONSTIPATION; Start 08/15/16 at 06: 30 Magnesium Hydroxide (Milk Of Mag) 30 ml DAILY PRN PO CONSTIPATION; Start at 06:30 Pantoprazole (Protonix Tab) 40 mg DAILY@06 PO ; Start 08/16/16 at 06:00 Enoxaparin Sodium (Lovenox) 40 mg DAILY SC Last administered on 08/18/16 10:11 ; Admin Dose 40 MG; Start 08/15/16 at 09:00 Insulin Glargine (Lantus) 15 unit DAILY@20 SC Last administered on 08/17/16 20 :22; Admin Dose 15 UNIT; Start 08/15/16 at 20:00 Miscellaneous Information 1 ea NOTE XX ; Start 08/15/16 at 07:30 Glucose (Glutose) 15 gm Q15M PRN PO DECREASED GLUCOSE; Start 08/15/16 at 07:30 Glucose (Glutose) 22.5 gm Q15M PRN PO DECREASED GLUCOSE; Start 08/15/16 at 07: 30 Dextrose (D50w Syringe) 25 ml Q15M PRN IV DECREASED GLUCOSE; Start 08/15/16 at 07:30 Dextrose (D50w Syringe) 50 ml Q15M PRN IV DECREASED GLUCOSE; Start 08/15/16 at 07:30 Glucagon (Glucagen) 1 mg Q15M PRN IM DECREASED GLUCOSE; Start 08/15/16 at 07:30 Glucose (Glutose) 15 gm Q15M PRN BUCCAL DECREASED GLUCOSE; Start 08/15/16 at 07 :30 Morphine Sulfate (Ms Contin (Er)) 15 mg Q12 PO Last administered on 08/18/16 10:03; Admin Dose 15 MG; Start 08/15/16 at 11:30 Isosorbide Dinitrate (Isordil) 20 mg TID PO Last administered on 08/18/16 10: 01; Admin Dose 20 MG; Start 08/15/16 at 13:00 Alprazolam (Xanax) 0.5 mg Q8 PO Last administered on 08/18/16 13:17; Admin Dose 0.5 MG; Start 08/15/16 at 22:00 Hydromorphone HCl (Dilaudid) 1 mg Q4H PRN IV PAIN Last administered on 13:35; Admin Dose 1 MG; Start 08/16/16 at 20:00 CARLOS MARTINEZ MD Aug 18, 2016 15:52
[2016-08-18] MEDS: PHENYTOIN 100 MG CAP PO SCH (21:32)
[2016-08-18] MEDS: ATORVASTATIN 40 MG TAB PO SCH (21:32)
[2016-08-18] MEDS: INSULIN GLARGINE [LANtus] 3 ML PEN SC SCH (21:35)
[2016-08-19] VITALS (13 sets, daily range): BP systolic 105–145; BP diastolic 53–93; PULSE 60; RESP 18–20
[2016-08-19] MEDS: HYDROmorphONE 1 MG/ML SYG IV PRN ×4 (03:30→17:54)
[2016-08-19] MEDS: ALPRAZOLAM 0.25 MG TAB PO SCH ×3 (06:26→21:52)
[2016-08-19] MEDS: PANTOPRAZOLE (EC) 40 MG TAB PO SCH (06:26)
[2016-08-19] MEDS: FUROSEMIDE 40 MG INJ IV SCH ×2 (06:26→17:12)
[2016-08-19] MEDS: INSULIN ASPART [NOVOLOG] 3 ML PEN SC SCH ×4 (08:56→21:57)
[2016-08-19] MEDS: ASPIRIN 81 MG TAB PO SCH (08:58)
[2016-08-19] MEDS: ENOXAPARIN 40 MG/0.4 ML SYG SC SCH (08:58)
[2016-08-19] MEDS: LOSARTAN 50 MG TAB PO SCH ×2 (08:58→21:51)
[2016-08-19] MEDS: RANOLAZINE (SR) 500 MG TAB PO SCH ×2 (08:58→21:50)
[2016-08-19] MEDS: BACLOFEN 10 MG TAB PO SCH ×2 (08:58→22:05)
[2016-08-19] MEDS: CYANOCOBALAMIN 500 MCG TAB PO SCH (08:58)
[2016-08-19] MEDS: GABAPENTIN 300 MG CAP PO SCH ×2 (08:58→21:51)
[2016-08-19] MEDS: ISOSORBIDE DINITRATE 20 MG TAB PO SCH ×3 (08:59→21:53)
[2016-08-19] MEDS: AMLODIPINE 5 MG TAB PO SCH (08:59)
[2016-08-19] MEDS: CLOPIDOGREL 75 MG TAB PO SCH (08:59)
[2016-08-19] MEDS: morphine (ER) 15 MG TAB PO SCH ×2 (09:00→21:52)
--- NOTE | 2016-08-19 10:31 | RADRPT ---
PROCEDURE: CT Brain without contrast. CLINICAL INDICATION: Neurologic deficit TECHNIQUE: A CT of the brain was performed on multidetector high-resolution CT scanner utilizing a xial sections from the skull base through the vertex without contrast. One or more of the following dose reduction techniques were used: Automated exposure control, Adjustment of the mA and/or kV acc ording to patient size, and/or use of iterative reconstruction technique. DOSE: CTDI = 44 mGy and the DLP = 630 mGy-cm. COMPARISON: CT brain 08/15/2016 FINDINGS: No acute intracranial hemorrhage, significant mass effect or midline shift. Patchy hypoattenuation o f the cerebral white matter is most consistent with mild to moderate chronic microvascular ischemic changes. Chronic appearing lacunar infarcts of the left laguerre radiata, left brandy, right internal ca psule, left lentiform nucleus are unchanged. The ventricles are stable size. Mild volume loss. Athe rosclerotic calcifications of the cavernous segments of the internal carotid arteries are seen. Mild paranasal sinus mucosal thickening. IMPRESSION: No significant interval change identified. No acute intracranial hemorrhage or significant mass effect. Mild to moderate chronic microvascular disease. Chronic appearing lacunar infarcts. RPTAT: AA .Shahriar Lomeli MD, MD Date Time Electronically viewed and signed by .Shahriar Lomeli MD, MD on 08/19/2016 10:31 .T/
--- NOTE | 2016-08-19 13:22 | CONS ---
Date/Time of Note Date/Time of Note DATE: 08/19/16 TIME: 13:19 Consult Date/Type/Reason Admit Date/Time Aug 15, 2016 at 06:28 Initial Consult Date 08/18/16 Type of Consultation: Neurology Reason for Consultation gait difficulty chronic infarcts Ordering Provider: CARLOS MARTINEZ MD Subjective complains of neck pain and right sided arm weakness Objective Vital Signs Date Time Temp Pulse Resp B/P Pulse Ox O2 Delivery O2 Flow Rate FiO2 08/19/16 12:18 60 08/19/16 12:06 98.0 20 127/66 100 08/18/16 08:38 Nasal Cannula 2.0 Intake and Output 08/18/16 08/18/16 08/19/16 15:00 23:00 07:00 Intake Total 720 ml 400 ml Output Total 775 ml Balance -55 ml 400 ml Results/Medications Result Diagram: 08/18/16 0706 08/18/16 0706 Results 24 hrs Laboratory Tests Test 08/18/16 17:58 08/18/16 21:05 08/19/16 08:29 08/19/16 12:40 Bedside Glucose 279 H 163 160 140 Medications Current Medications Nitroglycerin/ Dextrose (Nitroglycerin 50 Mg/D5W (Pmx)) 250 ml @ 0 mls/hr TITRATE IV Last administered on 08/15/16 02:39; Admin Dose 1.5 MLS/HR; Start 08/15/16 at 02:30 Amlodipine Besylate (Norvasc) 5 mg DAILY PO Last administered on 08/19/16 08: 59; Admin Dose 5 MG; Start 08/15/16 at 09:00 Aspirin (Aspirin) 81 mg DAILY PO Last administered on 08/19/16 08:58; Admin Dose 81 MG; Start 08/15/16 at 09:00 Atorvastatin Calcium (Lipitor) 40 mg HS PO Last administered on 08/18/16 21:32 ; Admin Dose 40 MG; Start 08/15/16 at 21:00 Baclofen (Lioresal) 10 mg BID PO Last administered on 08/19/16 08:58; Admin Dose 10 MG; Start 08/15/16 at 09:00 Carvedilol (Coreg) 12.5 mg BID PO Last administered on 08/19/16 08:59; Admin Dose 12.5 MG; Start 08/15/16 at 09:00 Clopidogrel Bisulfate (plaVIX) 75 mg DAILY PO Last administered on 08/19/16 08 :59; Admin Dose 75 MG; Start 08/15/16 at 09:00 Cyanocobalamin (Vitamin B12) 1,000 mcg DAILY PO Last administered on 08/19/16 08:58; Admin Dose 1,000 MCG; Start 08/15/16 at 09:00 Gabapentin (Neurontin) 300 mg BID PO Last administered on 08/19/16 08:58; Admin Dose 300 MG; Start 08/15/16 at 09:00 Losartan Potassium (Cozaar) 50 mg Q12 PO Last administered on 08/19/16 08:58; Admin Dose 50 MG; Start 08/15/16 at 09:00 Meclizine HCl (Antivert) 25 mg Q8H PRN PO VERTIGO; Start 08/15/16 at 06:30 Nitroglycerin (Nitroglycerin (Sl Tab) 0.4 Mg) 1 tab Q5M PRN SL CHEST PAIN Last administered on 08/18/16 08:58; Admin Dose 1 TAB; Start 08/15/16 at 06:30 Phenytoin (Dilantin) 300 mg HS PO Last administered on 08/18/16 21:32; Admin Dose 300 MG; Start 08/15/16 at 21:00 Ranolazine (Ranexa) 1,000 mg Q12 PO Last administered on 08/19/16 08:58; Admin Dose 1,000 MG; Start 08/15/16 at 10:00 Ondansetron HCl (Zofran Inj) 4 mg Q6H PRN IV NAUSEA AND/OR VOMITING; Start at 06:30 Acetaminophen (Tylenol Liquid) 650 mg Q6H PRN PO PAIN LEVEL 1-3 OR FEVER; Start 08/15/16 at 06:30 Zolpidem Tartrate (Ambien) 5 mg QHS PRN PO INSOMNIA Last administered on 23:02; Admin Dose 5 MG; Start 08/15/16 at 06:30 Docusate Sodium (Colace) 100 mg Q12H PRN PO CONSTIPATION; Start 08/15/16 at 06: 30 Magnesium Hydroxide (Milk Of Mag) 30 ml DAILY PRN PO CONSTIPATION; Start at 06:30 Pantoprazole (Protonix Tab) 40 mg DAILY@06 PO Last administered on 08/19/16 06 :26; Admin Dose 40 MG; Start 08/16/16 at 06:00 Enoxaparin Sodium (Lovenox) 40 mg DAILY SC Last administered on 08/19/16 08:58 ; Admin Dose 40 MG; Start 08/15/16 at 09:00 Insulin Glargine (Lantus) 15 unit DAILY@20 SC Last administered on 08/18/16 21 :35; Admin Dose 15 UNIT; Start 08/15/16 at 20:00 Miscellaneous Information 1 ea NOTE XX ; Start 08/15/16 at 07:30 Glucose (Glutose) 15 gm Q15M PRN PO DECREASED GLUCOSE; Start 08/15/16 at 07:30 Glucose (Glutose) 22.5 gm Q15M PRN PO DECREASED GLUCOSE; Start 08/15/16 at 07: 30 Dextrose (D50w Syringe) 25 ml Q15M PRN IV DECREASED GLUCOSE; Start 08/15/16 at 07:30 Dextrose (D50w Syringe) 50 ml Q15M PRN IV DECREASED GLUCOSE; Start 08/15/16 at 07:30 Glucagon (Glucagen) 1 mg Q15M PRN IM DECREASED GLUCOSE; Start 08/15/16 at 07:30 Glucose (Glutose) 15 gm Q15M PRN BUCCAL DECREASED GLUCOSE; Start 08/15/16 at 07 :30 Morphine Sulfate (Ms Contin (Er)) 15 mg Q12 PO Last administered on 08/19/16 09:00; Admin Dose 15 MG; Start 08/15/16 at 11:30 Isosorbide Dinitrate (Isordil) 20 mg TID PO Last administered on 08/19/16 12: 43; Admin Dose 20 MG; Start 08/15/16 at 13:00 Alprazolam (Xanax) 0.5 mg Q8 PO Last administered on 08/19/16 13:17; Admin Dose 0.5 MG; Start 08/15/16 at 22:00 Hydromorphone HCl (Dilaudid) 1 mg Q4H PRN IV PAIN Last administered on 13:17; Admin Dose 1 MG; Start 08/16/16 at 20:00 Assessment/Plan Chief Complaint/Hosp Course 56 years old male with past medical hstory of CAD, history of diabetes mellitus , hypertension, congestive heart failure, angina, s/p CABG, hypertension, anemia , dyslipidemia, diabetes mellitus, admitted with chest pain. He also reported difficulty in walking and was seen by stroke neurologist. Carotid ultrasound showed left ICA blockage. CT brain showed advanced atrophy for the patient's provided age without evidence of hemorrhage or acute ischemic infarct, chronic appearing left coronal radiata, pontine and centrum semiovale lacunar infarcts, right internal capsule, left lentiform nucleus, progressive worsening of chronic small vessel ischemic white matter disease particularly in the left cerebral hemisphere compared to the prior study. MRI of brain could not be done due to pacemaker. CTA of head showed complete occlusion of left ICA and 80% stenosis of right ICA.Repeat CTH shows no changes. -vascular surgery evaluation for Right ICA stenosis -continue ASA and Plavix, Lipitor -PT/OT/Speech Problems: CLARIBEL NEWELL MD Aug 19, 2016 13:22
--- NOTE | 2016-08-19 17:16 | PN ---
Date/Time of Note Date/Time of Note DATE: 08/19/16 TIME: 17:15 Assessment/Plan VTE Prophylaxis VTE Prophylaxis Intervention: other Lines/Catheters IV Catheter Type (from [facility]): [facility] Urinary Cath still in place: No Assessment/Plan Chief Complaint/Hosp Course IMPRESSION 1. Patient has carotid artery disease. 2. Coronary artery disease. 3. History of coronary artery bypass graft. 4. Atherosclerotic heart disease. 5. Angina. 6. Diabetes mellitus. 7. Dyslipidemia. 8. History of stent placement. 9. History of coronary angiogram and multiple Lexiscans. plan per neuro and vascular PT/OT SNF Problems: Subjective 24 Hr Interval Summary Respiratory: no complaints Cardiovascular: no complaints Musculoskeletal: other (WEAKNESS) Exam/Review of Systems Vital Signs Vitals Vital Signs Date Time Temp Pulse Resp B/P Pulse Ox O2 Delivery O2 Flow Rate FiO2 08/19/16 16:23 60 08/19/16 15:53 98.3 20 105/53 95 08/18/16 08:38 Nasal Cannula 2.0 Intake and Output 08/18/16 08/18/16 08/19/16 15:00 23:00 07:00 Intake Total 720 ml 400 ml Output Total 775 ml Balance -55 ml 400 ml Exam Neck: supple Respiratory: clear to auscultation Cardiovascular: regular rate and rhythm Gastrointestinal: soft Musculoskeletal: nl extremities to inspection Extremities: normal pulses Results Result Diagram: 08/18/16 0706 08/18/16 0706 Results 24 hrs Laboratory Tests Test 08/18/16 17:58 08/18/16 21:05 08/19/16 08:29 08/19/16 12:40 Bedside Glucose 279 H 163 160 140 Test 08/19/16 16:42 Bedside Glucose 192 Medications Medications Current Medications Nitroglycerin/ Dextrose (Nitroglycerin 50 Mg/D5W (Pmx)) 250 ml @ 0 mls/hr TITRATE IV Last administered on 08/15/16 02:39; Admin Dose 1.5 MLS/HR; Start 08/15/16 at 02:30 Amlodipine Besylate (Norvasc) 5 mg DAILY PO Last administered on 08/19/16 08: 59; Admin Dose 5 MG; Start 08/15/16 at 09:00 Aspirin (Aspirin) 81 mg DAILY PO Last administered on 08/19/16 08:58; Admin Dose 81 MG; Start 08/15/16 at 09:00 Atorvastatin Calcium (Lipitor) 40 mg HS PO Last administered on 08/18/16 21:32 ; Admin Dose 40 MG; Start 08/15/16 at 21:00 Baclofen (Lioresal) 10 mg BID PO Last administered on 08/19/16 08:58; Admin Dose 10 MG; Start 08/15/16 at 09:00 Carvedilol (Coreg) 12.5 mg BID PO Last administered on 08/19/16 08:59; Admin Dose 12.5 MG; Start 08/15/16 at 09:00 Clopidogrel Bisulfate (plaVIX) 75 mg DAILY PO Last administered on 08/19/16 08 :59; Admin Dose 75 MG; Start 08/15/16 at 09:00 Cyanocobalamin (Vitamin B12) 1,000 mcg DAILY PO Last administered on 08/19/16 08:58; Admin Dose 1,000 MCG; Start 08/15/16 at 09:00 Gabapentin (Neurontin) 300 mg BID PO Last administered on 08/19/16 08:58; Admin Dose 300 MG; Start 08/15/16 at 09:00 Losartan Potassium (Cozaar) 50 mg Q12 PO Last administered on 08/19/16 08:58; Admin Dose 50 MG; Start 08/15/16 at 09:00 Meclizine HCl (Antivert) 25 mg Q8H PRN PO VERTIGO; Start 08/15/16 at 06:30 Nitroglycerin (Nitroglycerin (Sl Tab) 0.4 Mg) 1 tab Q5M PRN SL CHEST PAIN Last administered on 08/18/16 08:58; Admin Dose 1 TAB; Start 08/15/16 at 06:30 Phenytoin (Dilantin) 300 mg HS PO Last administered on 08/18/16 21:32; Admin Dose 300 MG; Start 08/15/16 at 21:00 Ranolazine (Ranexa) 1,000 mg Q12 PO Last administered on 08/19/16 08:58; Admin Dose 1,000 MG; Start 08/15/16 at 10:00 Ondansetron HCl (Zofran Inj) 4 mg Q6H PRN IV NAUSEA AND/OR VOMITING; Start at 06:30 Acetaminophen (Tylenol Liquid) 650 mg Q6H PRN PO PAIN LEVEL 1-3 OR FEVER; Start 08/15/16 at 06:30 Zolpidem Tartrate (Ambien) 5 mg QHS PRN PO INSOMNIA Last administered on 23:02; Admin Dose 5 MG; Start 08/15/16 at 06:30 Docusate Sodium (Colace) 100 mg Q12H PRN PO CONSTIPATION; Start 08/15/16 at 06: 30 Magnesium Hydroxide (Milk Of Mag) 30 ml DAILY PRN PO CONSTIPATION; Start at 06:30 Pantoprazole (Protonix Tab) 40 mg DAILY@06 PO Last administered on 08/19/16 06 :26; Admin Dose 40 MG; Start 08/16/16 at 06:00 Enoxaparin Sodium (Lovenox) 40 mg DAILY SC Last administered on 08/19/16 08:58 ; Admin Dose 40 MG; Start 08/15/16 at 09:00 Insulin Glargine (Lantus) 15 unit DAILY@20 SC Last administered on 08/18/16 21 :35; Admin Dose 15 UNIT; Start 08/15/16 at 20:00 Miscellaneous Information 1 ea NOTE XX ; Start 08/15/16 at 07:30 Glucose (Glutose) 15 gm Q15M PRN PO DECREASED GLUCOSE; Start 08/15/16 at 07:30 Glucose (Glutose) 22.5 gm Q15M PRN PO DECREASED GLUCOSE; Start 08/15/16 at 07: 30 Dextrose (D50w Syringe) 25 ml Q15M PRN IV DECREASED GLUCOSE; Start 08/15/16 at 07:30 Dextrose (D50w Syringe) 50 ml Q15M PRN IV DECREASED GLUCOSE; Start 08/15/16 at 07:30 Glucagon (Glucagen) 1 mg Q15M PRN IM DECREASED GLUCOSE; Start 08/15/16 at 07:30 Glucose (Glutose) 15 gm Q15M PRN BUCCAL DECREASED GLUCOSE; Start 08/15/16 at 07 :30 Morphine Sulfate (Ms Contin (Er)) 15 mg Q12 PO Last administered on 08/19/16 09:00; Admin Dose 15 MG; Start 08/15/16 at 11:30 Isosorbide Dinitrate (Isordil) 20 mg TID PO Last administered on 08/19/16 12: 43; Admin Dose 20 MG; Start 08/15/16 at 13:00 Alprazolam (Xanax) 0.5 mg Q8 PO Last administered on 08/19/16 13:17; Admin Dose 0.5 MG; Start 08/15/16 at 22:00 Hydromorphone HCl (Dilaudid) 1 mg Q4H PRN IV PAIN Last administered on 13:17; Admin Dose 1 MG; Start 08/16/16 at 20:00 CARLOS MARTINEZ MD Aug 19, 2016 17:16
--- NOTE | 2016-08-19 17:43 | CONS ---
Date/Time of Note Date/Time of Note DATE: 08/19/16 TIME: 17:40 Assessment/Plan Assessment/Plan Chief Complaint/Hosp Course IMPRESSION: 1. Angina refractory to medical therapy with known severe multivessel obstructive coronary artery disease, status post attempted [employer] with ongoing evaluation for cardiac transplant.-Negative troponin x 3 since admit 2. Coronary artery disease, status post coronary bypass grafting with all grafts occluded except for KNOTT to LAD with thereafter diffuse disease of the KNOTT, status post recent percutaneous transluminal coronary angioplasty to apical LAD. 3. Cardiomyopathy with severely depressed left ventricular ejection fraction approximately 15% by outside hospital echocardiogram at [facility] 07/31/2016. 4. History of automatic implantable cardioverter-defibrillator. 5. History of a percutaneous transluminal coronary angioplasty and stent placement prior to obtuse marginal 11/2014, now most recently PTCA alone to apical LAD. 6. Hypertension, under reasonable control. 7. Dyslipidemia. 8. Possible development of vascular dementia. 9. Diabetes mellitus. 10. Seizure disorder. 11.Carotid stenosi 12.Encephalopathy Recc: -Tele -serial ecg's -Continue current BB/CCB/oral nitrates/losartan -Add ranexa to improve pain -Continue lasix diuresis -Continue statin -Ongoing neuro eval and vascular surgery eval for carotid stenosis -Discussion with [facility] re possible transfer for higher level of care/ongoing transplant eval Problems: Consultation Date/Type/Reason Admit Date/Time Aug 15, 2016 at 06:28 Initial Consult Date 08/15/2016 Type of Consultation: Cardiology Reason for Consultation Angina Referring Provider: CARLOS MARTINEZ MD Exam/Review of Systems Vital Signs Vitals Vital Signs Date Time Temp Pulse Resp B/P Pulse Ox O2 Delivery O2 Flow Rate FiO2 08/19/16 16:23 60 08/19/16 15:53 98.3 20 105/53 95 08/18/16 08:38 Nasal Cannula 2.0 Intake and Output 08/18/16 08/18/16 08/19/16 15:00 23:00 07:00 Intake Total 720 ml 400 ml Output Total 775 ml Balance -55 ml 400 ml Exam Review of Systems: CONSTITUTIONAL: No fevers, chills. PULMONARY: No sob CARDIOVASCULAR: ongoing chest pain GASTROINTESTINAL: No nausea/vomiting. GENITOURINARY: No hematuria/dysuria. MUSCULOSKELETAL: No myagias/arthalgias. PSYCHIATRIC: The patient denies depression. NEUROLOGIC: confusion Constitutional: alert Psych: no complaints Head: normocephalic ENMT: mucosa pink and moist Neck: jvd (9 cm water), supple Respiratory: diminished breath sounds (at bases/B) Cardiovascular: regular rate and rhythm Gastrointestinal: non-tender, soft Musculoskeletal: muscle tone (normal) Extremities: edema (none) Neurological: confused, lethargic Results Result Diagram: 08/18/16 0706 08/18/16 0706 Results 24 hrs Laboratory Tests Test 08/18/16 17:58 08/18/16 21:05 08/19/16 08:29 08/19/16 12:40 Bedside Glucose 279 H 163 160 140 Test 08/19/16 16:42 Bedside Glucose 192 Medications Medications Current Medications Nitroglycerin/ Dextrose (Nitroglycerin 50 Mg/D5W (Pmx)) 250 ml @ 0 mls/hr TITRATE IV Last administered on 08/15/16 02:39; Admin Dose 1.5 MLS/HR; Start 08/15/16 at 02:30 Amlodipine Besylate (Norvasc) 5 mg DAILY PO Last administered on 08/19/16 08: 59; Admin Dose 5 MG; Start 08/15/16 at 09:00 Aspirin (Aspirin) 81 mg DAILY PO Last administered on 08/19/16 08:58; Admin Dose 81 MG; Start 08/15/16 at 09:00 Atorvastatin Calcium (Lipitor) 40 mg HS PO Last administered on 08/18/16 21:32 ; Admin Dose 40 MG; Start 08/15/16 at 21:00 Baclofen (Lioresal) 10 mg BID PO Last administered on 08/19/16 08:58; Admin Dose 10 MG; Start 08/15/16 at 09:00 Carvedilol (Coreg) 12.5 mg BID PO Last administered on 08/19/16 08:59; Admin Dose 12.5 MG; Start 08/15/16 at 09:00 Clopidogrel Bisulfate (plaVIX) 75 mg DAILY PO Last administered on 08/19/16 08 :59; Admin Dose 75 MG; Start 08/15/16 at 09:00 Cyanocobalamin (Vitamin B12) 1,000 mcg DAILY PO Last administered on 08/19/16 08:58; Admin Dose 1,000 MCG; Start 08/15/16 at 09:00 Gabapentin (Neurontin) 300 mg BID PO Last administered on 08/19/16 08:58; Admin Dose 300 MG; Start 08/15/16 at 09:00 Losartan Potassium (Cozaar) 50 mg Q12 PO Last administered on 08/19/16 08:58; Admin Dose 50 MG; Start 08/15/16 at 09:00 Meclizine HCl (Antivert) 25 mg Q8H PRN PO VERTIGO; Start 08/15/16 at 06:30 Nitroglycerin (Nitroglycerin (Sl Tab) 0.4 Mg) 1 tab Q5M PRN SL CHEST PAIN Last administered on 08/18/16 08:58; Admin Dose 1 TAB; Start 08/15/16 at 06:30 Phenytoin (Dilantin) 300 mg HS PO Last administered on 08/18/16 21:32; Admin Dose 300 MG; Start 08/15/16 at 21:00 Ranolazine (Ranexa) 1,000 mg Q12 PO Last administered on 08/19/16 08:58; Admin Dose 1,000 MG; Start 08/15/16 at 10:00 Ondansetron HCl (Zofran Inj) 4 mg Q6H PRN IV NAUSEA AND/OR VOMITING; Start at 06:30 Acetaminophen (Tylenol Liquid) 650 mg Q6H PRN PO PAIN LEVEL 1-3 OR FEVER; Start 08/15/16 at 06:30 Zolpidem Tartrate (Ambien) 5 mg QHS PRN PO INSOMNIA Last administered on 23:02; Admin Dose 5 MG; Start 08/15/16 at 06:30 Docusate Sodium (Colace) 100 mg Q12H PRN PO CONSTIPATION; Start 08/15/16 at 06: 30 Magnesium Hydroxide (Milk Of Mag) 30 ml DAILY PRN PO CONSTIPATION; Start at 06:30 Pantoprazole (Protonix Tab) 40 mg DAILY@06 PO Last administered on 08/19/16 06 :26; Admin Dose 40 MG; Start 08/16/16 at 06:00 Enoxaparin Sodium (Lovenox) 40 mg DAILY SC Last administered on 08/19/16 08:58 ; Admin Dose 40 MG; Start 08/15/16 at 09:00 Insulin Glargine (Lantus) 15 unit DAILY@20 SC Last administered on 08/18/16 21 :35; Admin Dose 15 UNIT; Start 08/15/16 at 20:00 Miscellaneous Information 1 ea NOTE XX ; Start 08/15/16 at 07:30 Glucose (Glutose) 15 gm Q15M PRN PO DECREASED GLUCOSE; Start 08/15/16 at 07:30 Glucose (Glutose) 22.5 gm Q15M PRN PO DECREASED GLUCOSE; Start 08/15/16 at 07: 30 Dextrose (D50w Syringe) 25 ml Q15M PRN IV DECREASED GLUCOSE; Start 08/15/16 at 07:30 Dextrose (D50w Syringe) 50 ml Q15M PRN IV DECREASED GLUCOSE; Start 08/15/16 at 07:30 Glucagon (Glucagen) 1 mg Q15M PRN IM DECREASED GLUCOSE; Start 08/15/16 at 07:30 Glucose (Glutose) 15 gm Q15M PRN BUCCAL DECREASED GLUCOSE; Start 08/15/16 at 07 :30 Morphine Sulfate (Ms Contin (Er)) 15 mg Q12 PO Last administered on 08/19/16 09:00; Admin Dose 15 MG; Start 08/15/16 at 11:30 Isosorbide Dinitrate (Isordil) 20 mg TID PO Last administered on 08/19/16 12: 43; Admin Dose 20 MG; Start 08/15/16 at 13:00 Alprazolam (Xanax) 0.5 mg Q8 PO Last administered on 08/19/16 13:17; Admin Dose 0.5 MG; Start 08/15/16 at 22:00 Hydromorphone HCl (Dilaudid) 1 mg Q4H PRN IV PAIN Last administered on 13:17; Admin Dose 1 MG; Start 08/16/16 at 20:00 NICHOL ACOSTA Aug 19, 2016 17:42
[2016-08-19] MEDS: DOCUSATE SODIUM 100 MG CAP PO PRN (18:00)
[2016-08-19] MEDS: MAGNESIUM HYDROXIDE 30ML CUP PO PRN (18:00)
--- NOTE | 2016-08-19 18:22 | CONS ---
DATE OF ADMISSION: 08/15/2016 DATE OF CONSULTATION: 08/19/2016 REASON FOR CONSULTATION: Carotid stenosis. Thank you, Dr. Cast, for asking me to see this patient. HISTORY OF PRESENT ILLNESS: This is a 56-year-old male with history of coronary artery disease, fernando betes, hypertension and congestive heart failure. The patient has undergone coronary artery bypass grafting in the past. The patient also has a history of anemia, dyslipidemia. Patient was admitted with chest pain. Part of his workup included a carotid included a CAT scan of the brain which was positive for advanced hypertrophy. The patient did have difficulty walking. Carotid ultrasound was done as an outpatient which showed a left-sided ICA stenosis. CAT scan of the brain showed no evid ence of any hemorrhage or acute ischemic event, but had chronic appearing cortical radiata infarct. The patient subsequently had a CT angiogram of the brain which showed total occlusion of the left in ternal carotid artery 10 mm beyond the origin extending intracranially. The patient also had severe calcific atherosclerotic disease within the right internal carotid artery at 80% stenosis. Patient is currently being seen by the cardiology service for severe multivessel obstructive coronar y artery disease. He does have angina which is refractory to medical treatment and has 3-vessel cor onary artery disease and is currently being evaluated for possible cardiac transplantation. He has cardiomyopathy with an ejection fraction of 15% on echocardiogram that was done 07/31/2016. PAST MEDICAL HISTORY: As above. PAST SURGICAL HISTORY: Coronary artery bypass grafting. ALLERGIES: NONE. MEDICATIONS: List reviewed which includes: 1. Protonix. 2. Lipitor. 3. Diovan. 4. Insulin. 5. Aspirin. 6. Carvedilol. 7. Vitamin B12. 8. Neurontin. 9. Lasix. 10. Cozaar 11. Lovenox. 12. Tylenol. 13. Morphine. 14. Ambien. ALLERGIES: SULFA MEDICATIONS. SOCIAL HISTORY: No smoking, drinking or drug use. REVIEW OF SYSTEMS: As above. PHYSICAL EXAMINATION: VITAL SIGNS: Blood pressure is 136/93, pulse is 68, respirations 20, saturations 96% on room air. HEENT: Normocephalic, atraumatic. PERRLA. NECK: Supple. No JVD, no carotid bruits. CARDIOVASCULAR: Normal S1, S2. LUNGS: Clear. ABDOMEN: Soft. EXTREMITIES: Warm. LABORATORY VALUES: Significant for a hemoglobin 11.4, white count 6.8, platelet count 239. Normal coagulation factors and a creatinine level of 0.78. IMPRESSION: Left internal carotid artery occlusion and right internal carotid artery stenosis 80%. RECOMMENDATIONS: This patient is a candidate to undergo a right internal carotid artery endarterect omer; however, with his cardiac history and refractory angina, he needs to be evaluated and cleared b y cardiology, first possibly his carotid surgery needs to be done after possible cardiac interventio ns including possible transplant. We will discuss with the referring physicians. Dictated By: KYM OROSCO/MOISES Conf#: [id number] DID#: [id number]
[2016-08-19] MEDS: INSULIN GLARGINE [LANtus] 3 ML PEN SC SCH (20:00)
[2016-08-19] MEDS: PHENYTOIN 100 MG CAP PO SCH (21:51)
[2016-08-19] MEDS: ATORVASTATIN 40 MG TAB PO SCH (21:51)
[2016-08-20] VITALS (10 sets, daily range): BP systolic 116–137; BP diastolic 61–69; PULSE 60; RESP 17–19
[2016-08-20] MEDS: ALPRAZOLAM 0.25 MG TAB PO SCH ×4 (06:16→20:40)
[2016-08-20] MEDS: FUROSEMIDE 40 MG INJ IV SCH ×2 (06:16→17:13)
[2016-08-20] MEDS: PANTOPRAZOLE (EC) 40 MG TAB PO SCH (06:16)
[2016-08-20] MEDS: INSULIN ASPART [NOVOLOG] 3 ML PEN SC SCH ×4 (09:08→20:37)
[2016-08-20] MEDS: ENOXAPARIN 40 MG/0.4 ML SYG SC SCH (09:08)
[2016-08-20] MEDS: RANOLAZINE (SR) 500 MG TAB PO SCH ×2 (09:09→20:38)
[2016-08-20] MEDS: CYANOCOBALAMIN 500 MCG TAB PO SCH (09:09)
[2016-08-20] MEDS: GABAPENTIN 300 MG CAP PO SCH ×2 (09:09→20:38)
[2016-08-20] MEDS: CLOPIDOGREL 75 MG TAB PO SCH (09:10)
[2016-08-20] MEDS: BACLOFEN 10 MG TAB PO SCH ×2 (09:10→20:38)
[2016-08-20] MEDS: ASPIRIN 81 MG TAB PO SCH (09:10)
[2016-08-20] MEDS: AMLODIPINE 5 MG TAB PO SCH (09:10)
[2016-08-20] MEDS: ISOSORBIDE DINITRATE 20 MG TAB PO SCH ×3 (09:10→20:39)
[2016-08-20] MEDS: morphine (ER) 15 MG TAB PO SCH ×2 (09:10→20:38)
[2016-08-20] MEDS: LOSARTAN 50 MG TAB PO SCH ×2 (09:11→20:39)
[2016-08-20] MEDS: HYDROmorphONE 1 MG/ML SYG IV PRN ×2 (10:26→17:13)
[2016-08-20] MEDS: MAGNESIUM HYDROXIDE 30ML CUP PO PRN (12:52)
--- NOTE | 2016-08-20 18:11 | RADRPT ---
Vent Rate: 60 bpm RR Interval: 0 msec [place] Interval: 146 msec QRS Duration: 88 msec QT Interval: 466 msec QTC Interval: 466 msec P-R-T [place]: 40 - -48 - 0 degrees Electronic atrial pacemaker Left axis deviation Septal infarct , age undetermined Abnormal ECG Electronically Signed By: Logan Mauricio [id number]
--- NOTE | 2016-08-20 18:18 | RADRPT ---
Vent Rate: 60 bpm RR Interval: 0 msec NE Interval: 156 msec QRS Duration: 96 msec QT Interval: 496 msec QTC Interval: 496 msec P-R-T [place]: 45 - -77 - 60 degrees Electronic atrial pacemaker Left axis deviation Septal infarct , age undetermined Abnormal ECG Electronically Signed By: Logan Mauricio [id number]
[2016-08-20] MEDS: INSULIN GLARGINE [LANtus] 3 ML PEN SC SCH (20:36)
[2016-08-20] MEDS: ATORVASTATIN 40 MG TAB PO SCH (20:38)
[2016-08-20] MEDS: PHENYTOIN 100 MG CAP PO SCH (20:38)
--- NOTE | 2016-08-20 22:30 | PN ---
Date/Time of Note Date/Time of Note DATE: 08/20/16 TIME: 22:29 Assessment/Plan VTE Prophylaxis VTE Prophylaxis Intervention: other Lines/Catheters IV C[facility]ter Type (from [facility]): [facility] Urinary Cath still in place: No Assessment/Plan Chief Complaint/Hosp Course IMPRESSION 1. Patient has carotid artery disease. 2. Coronary artery disease. 3. History of coronary artery bypass graft. 4. Atherosclerotic heart disease. 5. Angina. 6. Diabetes mellitus. 7. Dyslipidemia. 8. History of stent placement. 9. History of coronary angiogram and multiple Lexiscans. plan per neuro and vascular PT/OT SNF dec pain meds Problems: Subjective 24 Hr Interval Summary Subjective hx not possible: other (weakness sleeping too much) Exam/Review of Systems Vital Signs Vitals Vital Signs Date Time Temp Pulse Resp B/P Pulse Ox O2 Delivery O2 Flow Rate FiO2 08/20/16 20:27 60 08/20/16 16:41 98.3 17 126/69 97 08/18/16 08:38 Nasal Cannula 2.0 Intake and Output 08/19/16 08/19/16 08/20/16 15:00 23:00 07:00 Intake Total 800 ml 500 ml Output Total 650 ml Balance 150 ml 500 ml Exam Respiratory: clear to auscultation Cardiovascular: regular rate and rhythm Gastrointestinal: soft Musculoskeletal: nl extremities to inspection Results Result Diagram: 08/18/16 0708/18/16 0706 Results 24 hrs Laboratory Tests Test 08/20/16 07:54 08/20/16 12:48 08/20/16 17:09 08/20/16 20:35 Bedside Glucose 227 H 181 177 282 H Medications Medications Current Medications Nitroglycerin/ Dextrose (Nitroglycerin 50 Mg/D5W (Pmx)) 250 ml @ 0 mls/hr TITRATE IV Last administered on 08/15/16 02:39; Admin Dose 1.5 MLS/HR; Start 08/15/16 at 02:30 Amlodipine Besylate (Norvasc) 5 mg DAILY PO Last administered on 08/20/16 09: 10; Admin Dose 5 MG; Start 08/15/16 at 09:00 Aspirin (Aspirin) 81 mg DAILY PO Last administered on 08/20/16 09:10; Admin Dose 81 MG; Start 08/15/16 at 09:00 Atorvastatin Calcium (Lipitor) 40 mg HS PO Last administered on 08/20/16 20:38 ; Admin Dose 40 MG; Start 08/15/16 at 21:00 Baclofen (Lioresal) 10 mg BID PO Last administered on 08/20/16 20:38; Admin Dose 10 MG; Start 08/15/16 at 09:00 Carvedilol (Coreg) 12.5 mg BID PO Last administered on 08/20/16 20:39; Admin Dose 12.5 MG; Start 08/15/16 at 09:00 Clopidogrel Bisulfate (plaVIX) 75 mg DAILY PO Last administered on 08/20/16 09 :10; Admin Dose 75 MG; Start 08/15/16 at 09:00 Cyanocobalamin (Vitamin B12) 1,000 mcg DAILY PO Last administered on 08/20/16 09:09; Admin Dose 1,000 MCG; Start 08/15/16 at 09:00 Gabapentin (Neurontin) 300 mg BID PO Last administered on 08/20/16 20:38; Admin Dose 300 MG; Start 08/15/16 at 09:00 Losartan Potassium (Cozaar) 50 mg Q12 PO Last administered on 08/20/16 20:39; Admin Dose 50 MG; Start 08/15/16 at 09:00 Meclizine HCl (Antivert) 25 mg Q8H PRN PO VERTIGO; Start 08/15/16 at 06:30 Nitroglycerin (Nitroglycerin (Sl Tab) 0.4 Mg) 1 tab Q5M PRN SL CHEST PAIN Last administered on 08/18/16 08:58; Admin Dose 1 TAB; Start 08/15/16 at 06:30 Phenytoin (Dilantin) 300 mg HS PO Last administered on 08/20/16 20:38; Admin Dose 300 MG; Start 08/15/16 at 21:00 Ranolazine (Ranexa) 1,000 mg Q12 PO Last administered on 08/20/16 20:38; Admin Dose 1,000 MG; Start 08/15/16 at 10:00 Ondansetron HCl (Zofran Inj) 4 mg Q6H PRN IV NAUSEA AND/OR VOMITING; Start at 06:30 Acetaminophen (Tylenol Liquid) 650 mg Q6H PRN PO PAIN LEVEL 1-3 OR FEVER; Start 08/15/16 at 06:30 Zolpidem Tartrate (Ambien) 5 mg QHS PRN PO INSOMNIA Last administered on 23:02; Admin Dose 5 MG; Start 08/15/16 at 06:30 Docusate Sodium (Colace) 100 mg Q12H PRN PO CONSTIPATION Last administered on 18:00; Admin Dose 100 MG; Start 08/15/16 at 06:30 Magnesium Hydroxide (Milk Of Mag) 30 ml DAILY PRN PO CONSTIPATION Last administered on 08/20/16 12:52; Admin Dose 30 ML; Start 08/15/16 at 06:30 Pantoprazole (Protonix Tab) 40 mg DAILY@06 PO Last administered on 08/20/16 06 :16; Admin Dose 40 MG; Start 08/16/16 at 06:00 Enoxaparin Sodium (Lovenox) 40 mg DAILY SC Last administered on 08/20/16 09:08 ; Admin Dose 40 MG; Start 08/15/16 at 09:00 Insulin Glargine (Lantus) 15 unit DAILY@20 SC Last administered on 08/20/16 20 :36; Admin Dose 15 UNIT; Start 08/15/16 at 20:00 Miscellaneous Information 1 ea NOTE XX ; Start 08/15/16 at 07:30 Glucose (Glutose) 15 gm Q15M PRN PO DECREASED GLUCOSE; Start 08/15/16 at 07:30 Glucose (Glutose) 22.5 gm Q15M PRN PO DECREASED GLUCOSE; Start 08/15/16 at 07: 30 Dextrose (D50w Syringe) 25 ml Q15M PRN IV DECREASED GLUCOSE; Start 08/15/16 at 07:30 Dextrose (D50w Syringe) 50 ml Q15M PRN IV DECREASED GLUCOSE; Start 08/15/16 at 07:30 Glucagon (Glucagen) 1 mg Q15M PRN IM DECREASED GLUCOSE; Start 08/15/16 at 07:30 Glucose (Glutose) 15 gm Q15M PRN BUCCAL DECREASED GLUCOSE; Start 08/15/16 at 07 :30 Morphine Sulfate (Ms Contin (Er)) 15 mg Q12 PO Last administered on 08/20/16 20:38; Admin Dose 15 MG; Start 08/15/16 at 11:30 Isosorbide Dinitrate (Isordil) 20 mg TID PO Last administered on 08/20/16 20: 39; Admin Dose 20 MG; Start 08/15/16 at 13:00 Alprazolam (Xanax) 0.5 mg Q8 PO Last administered on 08/20/16 20:40; Admin Dose 0.5 MG; Start 08/15/16 at 22:00 Hydromorphone HCl (Dilaudid) 0.5 mg Q4H PRN IV PAIN Last administered on 17:13; Admin Dose 0.5 MG; Start 08/20/16 at 14:30 CARLOS MARTINEZ MD Aug 20, 2016 22:30
[2016-08-21] VITALS (13 sets, daily range): BP systolic 110–139; BP diastolic 60–73; PULSE 60; RESP 16–20
[2016-08-21] MEDS: ALPRAZOLAM 0.25 MG TAB PO SCH ×3 (05:55→20:28)
[2016-08-21] MEDS: PANTOPRAZOLE (EC) 40 MG TAB PO SCH (05:56)
[2016-08-21] MEDS: FUROSEMIDE 40 MG INJ IV SCH ×2 (05:56→17:30)
[2016-08-21] MEDS: INSULIN ASPART [NOVOLOG] 3 ML PEN SC SCH ×4 (08:00→20:27)
[2016-08-21] MEDS: ASPIRIN 81 MG TAB PO SCH (09:00)
[2016-08-21] MEDS: LOSARTAN 50 MG TAB PO SCH ×2 (09:02→20:20)
[2016-08-21] MEDS: ISOSORBIDE DINITRATE 20 MG TAB PO SCH ×3 (09:03→20:20)
[2016-08-21] MEDS: BACLOFEN 10 MG TAB PO SCH ×2 (09:04→20:27)
[2016-08-21] MEDS: GABAPENTIN 300 MG CAP PO SCH ×2 (09:04→20:27)
[2016-08-21] MEDS: morphine (ER) 15 MG TAB PO SCH ×3 (09:04→21:34)
[2016-08-21] MEDS: AMLODIPINE 5 MG TAB PO SCH (09:05)
[2016-08-21] MEDS: CLOPIDOGREL 75 MG TAB PO SCH (09:05)
[2016-08-21] MEDS: RANOLAZINE (SR) 500 MG TAB PO SCH ×2 (09:06→20:26)
[2016-08-21] MEDS: CYANOCOBALAMIN 500 MCG TAB PO SCH (09:06)
[2016-08-21] MEDS: ENOXAPARIN 40 MG/0.4 ML SYG SC SCH (09:07)
[2016-08-21] MEDS: HYDROmorphONE 1 MG/ML SYG IV PRN ×3 (12:27→21:34)
--- NOTE | 2016-08-21 19:37 | CONS ---
Date/Time of Note Date/Time of Note DATE: 08/21/16 TIME: 19:34 Assessment/Plan Assessment/Plan Chief Complaint/Hosp Course IMPRESSION: 1. Angina refractory to medical therapy with known severe multivessel obstructive coronary artery disease, status post attempted STORAGE ADMINISTRATOR with ongoing evaluation for cardiac transplant.-Negative troponin x 3 since admit 2. Coronary artery disease, status post coronary bypass grafting with all grafts occluded except for KNOTT to LAD with thereafter diffuse disease of the KNOTT, status post recent percutaneous transluminal coronary angioplasty to apical LAD. 3. Cardiomyopathy with severely depressed left ventricular ejection fraction approximately 15% by outside hospital echocardiogram at [facility] 07/31/2016. 4. History of automatic implantable cardioverter-defibrillator. 5. History of a percutaneous transluminal coronary angioplasty and stent placement prior to obtuse marginal 11/2014, now most recently PTCA alone to apical LAD. 6. Hypertension, under reasonable control. 7. Dyslipidemia. 8. Possible development of vascular dementia. 9. Diabetes mellitus. 10. Seizure disorder. 11.Carotid stenosis 12.Encephalopathy 14. Anemia Recc: -Tele -serial ecg's -Continue current BB/CCB/oral nitrates/losartan with slight increase to oral nitrates -Add ranexa to improve pain -Continue lasix diuresis -Continue statin -Ongoing neuro eval and vascular surgery eval for carotid stenosis -Discussion with [facility] re possible transfer for higher level of care/ongoing transplant eval -Pain control -Consider GI eval/colonscopy necessary for transplant eval while in house and given anemia. Will also check stool guiaic Problems: Consultation Date/Type/Reason Admit Date/Time Aug 15, 2016 at 06:28 Initial Consult Date 08/15/2016 Type of Consultation: Cardiology Reason for Consultation Chest pain Referring Provider: CARLOS MARTINEZ MD Exam/Review of Systems Vital Signs Vitals Vital Signs Date Time Temp Pulse Resp B/P Pulse Ox O2 Delivery O2 Flow Rate FiO2 08/21/16 16:06 60 08/21/16 15:42 98.3 18 136/65 97 08/18/16 08:38 Nasal Cannula 2.0 Intake and Output 08/20/16 08/20/16 08/21/16 15:00 23:00 07:00 Intake Total 900 ml 500 ml Output Total 700 ml Balance 200 ml 500 ml Exam Review of Systems: CONSTITUTIONAL: No fevers, chills. PULMONARY: No sob CARDIOVASCULAR: No chest pain/palpitations GASTROINTESTINAL: No nausea/vomiting. GENITOURINARY: No hematuria/dysuria. MUSCULOSKELETAL: No myagias/arthalgias. PSYCHIATRIC: The patient denies depression. NEUROLOGIC: lethargic Constitutional: alert Psych: no complaints Head: normocephalic ENMT: mucosa pink and moist Neck: jvd (9 cm water), supple Respiratory: diminished breath sounds (at bases/B) Cardiovascular: regular rate and rhythm Gastrointestinal: non-tender, soft Musculoskeletal: muscle tone (normal) Extremities: edema (none) Neurological: confused, lethargic Results Result Diagram: 08/18/16 0706 08/18/16 0706 Results 24 hrs Laboratory Tests Test 08/20/16 20:35 08/21/16 08:24 08/21/16 12:23 08/21/16 17:36 Bedside Glucose 282 H 114 202 185 Medications Medications Current Medications Nitroglycerin/ Dextrose (Nitroglycerin 50 Mg/D5W (Pmx)) 250 ml @ 0 mls/hr TITRATE IV Last administered on 08/15/16 02:39; Admin Dose 1.5 MLS/HR; Start 08/15/16 at 02:30 Amlodipine Besylate (Norvasc) 5 mg DAILY PO Last administered on 08/21/16 09: 05; Admin Dose 5 MG; Start 08/15/16 at 09:00 Aspirin (Aspirin) 81 mg DAILY PO Last administered on 08/21/16 09:00; Admin Dose 81 MG; Start 08/15/16 at 09:00 Atorvastatin Calcium (Lipitor) 40 mg HS PO Last administered on 08/20/16 20:38 ; Admin Dose 40 MG; Start 08/15/16 at 21:00 Baclofen (Lioresal) 10 mg BID PO Last administered on 08/21/16 09:04; Admin Dose 10 MG; Start 08/15/16 at 09:00 Carvedilol (Coreg) 12.5 mg BID PO Last administered on 08/21/16 09:02; Admin Dose 12.5 MG; Start 08/15/16 at 09:00 Clopidogrel Bisulfate (plaVIX) 75 mg DAILY PO Last administered on 08/21/16 09 :05; Admin Dose 75 MG; Start 08/15/16 at 09:00 Cyanocobalamin (Vitamin B12) 1,000 mcg DAILY PO Last administered on 08/21/16 09:06; Admin Dose 1,000 MCG; Start 08/15/16 at 09:00 Gabapentin (Neurontin) 300 mg BID PO Last administered on 08/21/16 09:04; Admin Dose 300 MG; Start 08/15/16 at 09:00 Losartan Potassium (Cozaar) 50 mg Q12 PO Last administered on 08/21/16 09:02; Admin Dose 50 MG; Start 08/15/16 at 09:00 Meclizine HCl (Antivert) 25 mg Q8H PRN PO VERTIGO; Start 08/15/16 at 06:30 Nitroglycerin (Nitroglycerin (Sl Tab) 0.4 Mg) 1 tab Q5M PRN SL CHEST PAIN Last administered on 08/18/16 08:58; Admin Dose 1 TAB; Start 08/15/16 at 06:30 Phenytoin (Dilantin) 300 mg HS PO Last administered on 08/20/16 20:38; Admin Dose 300 MG; Start 08/15/16 at 21:00 Ranolazine (Ranexa) 1,000 mg Q12 PO Last administered on 08/21/16 09:06; Admin Dose 1,000 MG; Start 08/15/16 at 10:00 Ondansetron HCl (Zofran Inj) 4 mg Q6H PRN IV NAUSEA AND/OR VOMITING; Start at 06:30 Acetaminophen (Tylenol Liquid) 650 mg Q6H PRN PO PAIN LEVEL 1-3 OR FEVER; Start 08/15/16 at 06:30 Zolpidem Tartrate (Ambien) 5 mg QHS PRN PO INSOMNIA Last administered on 23:02; Admin Dose 5 MG; Start 08/15/16 at 06:30 Docusate Sodium (Colace) 100 mg Q12H PRN PO CONSTIPATION Last administered on 18:00; Admin Dose 100 MG; Start 08/15/16 at 06:30 Magnesium Hydroxide (Milk Of Mag) 30 ml DAILY PRN PO CONSTIPATION Last administered on 08/20/16 12:52; Admin Dose 30 ML; Start 08/15/16 at 06:30 Pantoprazole (Protonix Tab) 40 mg DAILY@06 PO Last administered on 08/21/16 05 :56; Admin Dose 40 MG; Start 08/16/16 at 06:00 Enoxaparin Sodium (Lovenox) 40 mg DAILY SC Last administered on 08/21/16 09:07 ; Admin Dose 40 MG; Start 08/15/16 at 09:00 Insulin Glargine (Lantus) 15 unit DAILY@20 SC Last administered on 08/20/16 20 :36; Admin Dose 15 UNIT; Start 08/15/16 at 20:00 Miscellaneous Information 1 ea NOTE XX ; Start 08/15/16 at 07:30 Glucose (Glutose) 15 gm Q15M PRN PO DECREASED GLUCOSE; Start 08/15/16 at 07:30 Glucose (Glutose) 22.5 gm Q15M PRN PO DECREASED GLUCOSE; Start 08/15/16 at 07: 30 Dextrose (D50w Syringe) 25 ml Q15M PRN IV DECREASED GLUCOSE; Start 08/15/16 at 07:30 Dextrose (D50w Syringe) 50 ml Q15M PRN IV DECREASED GLUCOSE; Start 08/15/16 at 07:30 Glucagon (Glucagen) 1 mg Q15M PRN IM DECREASED GLUCOSE; Start 08/15/16 at 07:30 Glucose (Glutose) 15 gm Q15M PRN BUCCAL DECREASED GLUCOSE; Start 08/15/16 at 07 :30 Morphine Sulfate (Ms Contin (Er)) 15 mg Q12 PO Last administered on 08/21/16 09:04; Admin Dose 15 MG; Start 08/15/16 at 11:30 Isosorbide Dinitrate (Isordil) 20 mg TID PO Last administered on 08/21/16 12: 33; Admin Dose 20 MG; Start 08/15/16 at 13:00 Alprazolam (Xanax) 0.5 mg Q8 PO Last administered on 08/21/16 15:00; Admin Dose 0.5 MG; Start 08/15/16 at 22:00 Hydromorphone HCl (Dilaudid) 0.5 mg Q4H PRN IV PAIN Last administered on 17:26; Admin Dose 0.5 MG; Start 08/20/16 at 14:30 NICHOL ACOSTA 22, 2017 19:36
[2016-08-21] MEDS: ATORVASTATIN 40 MG TAB PO SCH (20:26)
[2016-08-21] MEDS: INSULIN GLARGINE [LANtus] 3 ML PEN SC SCH (20:28)
[2016-08-21] MEDS: PHENYTOIN 100 MG CAP PO SCH (20:28)
[2016-08-21] MEDS: ISOSORBIDE DINITRATE 10 MG TAB PO SCH (21:00)
--- NOTE | 2016-08-21 23:45 | PN ---
Date/Time of Note Date/Time of Note DATE: 08/21/16 TIME: 23:44 Assessment/Plan VTE Prophylaxis VTE Prophylaxis Intervention: other Lines/Catheters IV Catheter Type (from [facility] [place] [facility] Urinary Cath still in place: No Assessment/Plan Chief Complaint/Hosp Course IMPRESSION 1. Patient has carotid artery disease. 2. Coronary artery disease. 3. History of coronary artery bypass graft. 4. Atherosclerotic heart disease. 5. Angina. 6. Diabetes mellitus. 7. Dyslipidemia. 8. History of stent placement. 9. History of coronary angiogram and multiple Lexiscans. plan per neuro and vascular PT/OT [facility] dec pain meds gi consult for cardiac tranplant work up Problems: Subjective 24 Hr Interval Summary Subjective hx not possible: other (more awake and alert) Exam/Review of Systems Vital Signs Vitals Vital Signs Date Time Temp Pulse Resp B/P Pulse Ox O2 Delivery O2 Flow Rate FiO2 08/21/16 20:42 60 08/21/16 20:00 98.0 16 110/60 96 08/18/16 08:38 Nasal Cannula 2.0 Intake and Output 08/20/16 08/20/16 08/21/16 15:00 23:00 07:00 Intake Total 900 ml 500 ml Output Total 700 ml Balance 200 ml 500 ml Exam Neck: supple Respiratory: clear to auscultation Cardiovascular: regular rate and rhythm Gastrointestinal: soft Results Result Diagram: 08/18/16 0706 08/18/16 0706 Results 24 hrs Laboratory Tests Test 08/21/16 08:24 08/21/16 12:23 08/21/16 17:36 08/21/16 19:50 Bedside Glucose 114 202 185 262 H Medications Medications Current Medications Nitroglycerin/ Dextrose (Nitroglycerin 50 Mg/D5W (Pmx)) 250 ml @ 0 mls/hr TITRATE IV Last administered on 08/15/16 02:39; Admin Dose 1.5 MLS/HR; Start 08/15/16 at 02:30 Amlodipine Besylate (Norvasc) 5 mg DAILY PO Last administered on 08/21/16 09: 05; Admin Dose 5 MG; Start 08/15/16 at 09:00 Aspirin (Aspirin) 81 mg DAILY PO Last administered on 08/21/16 09:00; Admin Dose 81 MG; Start 08/15/16 at 09:00 Atorvastatin Calcium (Lipitor) 40 mg HS PO Last administered on 08/21/16 20:26 ; Admin Dose 40 MG; Start 08/15/16 at 21:00 Baclofen (Lioresal) 10 mg BID PO Last administered on 08/21/16 20:27; Admin Dose 10 MG; Start 08/15/16 at 09:00 Carvedilol (Coreg) 12.5 mg BID PO Last administered on 08/21/16 09:02; Admin Dose 12.5 MG; Start 08/15/16 at 09:00 Clopidogrel Bisulfate (plaVIX) 75 mg DAILY PO Last administered on 08/21/16 09 :05; Admin Dose 75 MG; Start 08/15/16 at 09:00 Cyanocobalamin (Vitamin B12) 1,000 mcg DAILY PO Last administered on 08/21/16 09:06; Admin Dose 1,000 MCG; Start 08/15/16 at 09:00 Gabapentin (Neurontin) 300 mg BID PO Last administered on 08/21/16 20:27; Admin Dose 300 MG; Start 08/15/16 at 09:00 Losartan Potassium (Cozaar) 50 mg Q12 PO Last administered on 08/21/16 09:02; Admin Dose 50 MG; Start 08/15/16 at 09:00 Meclizine HCl (Antivert) 25 mg Q8H PRN PO VERTIGO; Start 08/15/16 at 06:30 Nitroglycerin (Nitroglycerin (Sl Tab) 0.4 Mg) 1 tab Q5M PRN SL CHEST PAIN Last administered on 08/18/16 08:58; Admin Dose 1 TAB; Start 08/15/16 at 06:30 Phenytoin (Dilantin) 300 mg HS PO Last administered on 08/20/16 20:38; Admin Dose 300 MG; Start 08/15/16 at 21:00 Ranolazine (Ranexa) 1,000 mg Q12 PO Last administered on 08/21/16 20:26; Admin Dose 1,000 MG; Start 08/15/16 at 10:00 Ondansetron HCl (Zofran Inj) 4 mg Q6H PRN IV NAUSEA AND/OR VOMITING; Start at 06:30 Acetaminophen (Tylenol Liquid) 650 mg Q6H PRN PO PAIN LEVEL 1-3 OR FEVER; Start 08/15/16 at 06:30 Zolpidem Tartrate (Ambien) 5 mg QHS PRN PO INSOMNIA Last administered on 23:02; Admin Dose 5 MG; Start 08/15/16 at 06:30 Docusate Sodium (Colace) 100 mg Q12H PRN PO CONSTIPATION Last administered on 18:00; Admin Dose 100 MG; Start 08/15/16 at 06:30 Magnesium Hydroxide (Milk Of Mag) 30 ml DAILY PRN PO CONSTIPATION Last administered on 08/20/16 12:52; Admin Dose 30 ML; Start 08/15/16 at 06:30 Pantoprazole (Protonix Tab) 40 mg DAILY@06 PO Last administered on 08/21/16 05 :56; Admin Dose 40 MG; Start 08/16/16 at 06:00 Enoxaparin Sodium (Lovenox) 40 mg DAILY SC Last administered on 08/21/16 09:07 ; Admin Dose 40 MG; Start 08/15/16 at 09:00 Insulin Glargine (Lantus) 15 unit DAILY@20 SC Last administered on 08/21/16 20 :28; Admin Dose 15 UNIT; Start 08/15/16 at 20:00 Miscellaneous Information 1 ea NOTE XX ; Start 08/15/16 at 07:30 Glucose (Glutose) 15 gm Q15M PRN PO DECREASED GLUCOSE; Start 08/15/16 at 07:30 Glucose (Glutose) 22.5 gm Q15M PRN PO DECREASED GLUCOSE; Start 08/15/16 at 07: 30 Dextrose (D50w Syringe) 25 ml Q15M PRN IV DECREASED GLUCOSE; Start 08/15/16 at 07:30 Dextrose (D50w Syringe) 50 ml Q15M PRN IV DECREASED GLUCOSE; Start 08/15/16 at 07:30 Glucagon (Glucagen) 1 mg Q15M PRN IM DECREASED GLUCOSE; Start 08/15/16 at 07:30 Glucose (Glutose) 15 gm Q15M PRN BUCCAL DECREASED GLUCOSE; Start 08/15/16 at 07 :30 Morphine Sulfate (Ms Contin (Er)) 15 mg Q12 PO Last administered on 08/21/16 21:34; Admin Dose 15 MG; Start 08/15/16 at 11:30 Alprazolam (Xanax) 0.5 mg Q8 PO Last administered on 08/21/16 15:00; Admin Dose 0.5 MG; Start 08/15/16 at 22:00 Hydromorphone HCl (Dilaudid) 0.5 mg Q4H PRN IV PAIN Last administered on 21:34; Admin Dose 0.5 MG; Start 08/20/16 at 14:30 Isosorbide Dinitrate (Isordil) 30 mg TID PO ; Start 08/21/16 at 21:00 CARLOS MARTINEZ MD Aug 21, 2016 23:45
[2016-08-22] VITALS (13 sets, daily range): BP systolic 103–139; BP diastolic 55–97; PULSE 60; RESP 16–20
[2016-08-22] MEDS: ALPRAZOLAM 0.25 MG TAB PO SCH ×3 (05:20→20:00)
[2016-08-22] MEDS: PANTOPRAZOLE (EC) 40 MG TAB PO SCH (05:20)
[2016-08-22] MEDS: HYDROmorphONE 1 MG/ML SYG IV PRN ×3 (05:21→20:36)
[2016-08-22] MEDS: FUROSEMIDE 40 MG INJ IV SCH ×2 (05:21→17:41)
[2016-08-22] MEDS: DOCUSATE SODIUM 100 MG CAP PO PRN ×2 (05:25→20:01)
[2016-08-22] MEDS: ASPIRIN 81 MG TAB PO SCH (08:57)
[2016-08-22] MEDS: LOSARTAN 50 MG TAB PO SCH ×2 (08:58→20:07)
[2016-08-22] MEDS: ISOSORBIDE DINITRATE 10 MG TAB PO SCH ×3 (09:00→20:07)
[2016-08-22] MEDS: BACLOFEN 10 MG TAB PO SCH ×2 (09:00→20:01)
[2016-08-22] MEDS: GABAPENTIN 300 MG CAP PO SCH ×2 (09:02→20:01)
[2016-08-22] MEDS: AMLODIPINE 5 MG TAB PO SCH (09:02)
[2016-08-22] MEDS: morphine (ER) 15 MG TAB PO SCH ×2 (09:02→20:01)
[2016-08-22] MEDS: CLOPIDOGREL 75 MG TAB PO SCH (09:03)
[2016-08-22] MEDS: RANOLAZINE (SR) 500 MG TAB PO SCH ×2 (09:03→20:01)
[2016-08-22] MEDS: CYANOCOBALAMIN 500 MCG TAB PO SCH (09:04)
[2016-08-22] MEDS: ENOXAPARIN 40 MG/0.4 ML SYG SC SCH (09:07)
[2016-08-22] MEDS: INSULIN ASPART [NOVOLOG] 3 ML PEN SC SCH ×4 (09:07→20:06)
--- NOTE | 2016-08-22 13:16 | PDOCDIS ---
Discharge Instructions CONDITION Patient Condition: Stable ACTIVITY: Activity Restrictions: Slowly Increase Activity FOLLOW UP/APPOINTMENTS Appointments f/u [facility] 1 wk see own pcp [address] glaser [address] montelongo [address] cardona 2 wks CARLOS MARTINEZ MD Aug 22, 2016 13:16
[2016-08-22] MEDS ORDERED: ISOS10TA2 PO (13:19)
[2016-08-22] MEDS ORDERED: MORP15TA3 PO (13:27)
--- NOTE | 2016-08-22 18:01 | CONS ---
Date/Time of Note Date/Time of Note DATE: 08/22/16 TIME: 17:58 Assessment/Plan Assessment/Plan Chief Complaint/Hosp Course IMPRESSION: 1. Angina refractory to medical therapy with known severe multivessel obstructive coronary artery disease, status post attempted INVENTORY PLANNER with ongoing evaluation for cardiac transplant.-Negative troponin x 3 since admit 2. Coronary artery disease, status post coronary bypass grafting with all grafts occluded except for KNOTT to LAD with thereafter diffuse disease of the KNOTT, status post recent percutaneous transluminal coronary angioplasty to apical LAD. 3. Cardiomyopathy with severely depressed left ventricular ejection fraction approximately 15% by outside hospital echocardiogram at [facility] 07/31/2016. 4. History of automatic implantable cardioverter-defibrillator. 5. History of a percutaneous transluminal coronary angioplasty and stent placement prior to obtuse marginal 11/2014, now most recently PTCA alone to apical LAD at [facility] in last 2-3 weeks without sig change in sx 6. Hypertension, under reasonable control. 7. Dyslipidemia. 8. Possible development of vascular dementia. 9. Diabetes mellitus. 10. Seizure disorder. 11.Carotid stenosis 12.Encephalopathy 14. Anemia Recc: -Tele -serial ecg's -Continue current BB/CCB/ranexa/oral nitrates -Continue losartan afterload reduction -Continue lasix diuresis -Continue statin -Ongoing neuro eval and vascular surgery eval for carotid stenosis -Discussion with [facility] re possible transfer for higher level of care/ongoing transplant eval -Pain control -GI eval/colonscopy as outpatient per GI -D/C planning/ambulation Problems: Consultation Date/Type/Reason Admit Date/Time Aug 15, 2016 at 06:28 Initial Consult Date 08/15/2016 Type of Consultation: Cardiology Reason for Consultation Chest pain/cardiomyopathy Referring Provider: CARLOS MARTINEZ MD Exam/Review of Systems Vital Signs Vitals Vital Signs Date Time Temp Pulse Resp B/P Pulse Ox O2 Delivery O2 Flow Rate FiO2 08/22/16 16:12 60 08/22/16 15:51 97.6 20 103/55 97 08/22/16 07:40 Nasal Cannula 2.0 Intake and Output 08/21/16 08/21/16 08/22/16 15:00 23:00 07:00 Intake Total 500 ml 400 ml Output Total 1000 ml Balance 500 ml -600 ml Exam Review of Systems: CONSTITUTIONAL: No fevers, chills. PULMONARY: No sob CARDIOVASCULAR: intermittent chest pain GASTROINTESTINAL: No nausea/vomiting. GENITOURINARY: No hematuria/dysuria. MUSCULOSKELETAL: No myagias/arthalgias. PSYCHIATRIC: The patient denies depression. NEUROLOGIC: No weakness Constitutional: alert Psych: no complaints ENMT: mucosa pink and moist Neck: jvd (9 cm water), supple Respiratory: diminished breath sounds (at bases/B) Cardiovascular: regular rate and rhythm Gastrointestinal: non-tender, soft Musculoskeletal: muscle tone Extremities: edema (none) Neurological: other (No focal deficits) Results Result Diagram: 08/18/16 0706 08/18/16 0706 Results 24 hrs Laboratory Tests Test 08/21/16 19:50 08/22/16 01:26 08/22/16 07:27 08/22/16 12:15 Bedside Glucose 262 H 201 153 186 Test 08/22/16 17:36 Bedside Glucose 248 H Medications Medications Current Medications Nitroglycerin/ Dextrose (Nitroglycerin 50 Mg/D5W (Pmx)) 250 ml @ 0 mls/hr TITRATE IV Last administered on 08/15/16 02:39; Admin Dose 1.5 MLS/HR; Start 08/15/16 at 02:30 Amlodipine Besylate (Norvasc) 5 mg DAILY PO Last administered on 08/22/16 09: 02; Admin Dose 5 MG; Start 08/15/16 at 09:00 Aspirin (Aspirin) 81 mg DAILY PO Last administered on 08/22/16 08:57; Admin Dose 81 MG; Start 08/15/16 at 09:00 Atorvastatin Calcium (Lipitor) 40 mg HS PO Last administered on 08/21/16 20:26 ; Admin Dose 40 MG; Start 08/15/16 at 21:00 Baclofen (Lioresal) 10 mg BID PO Last administered on 08/22/16 09:00; Admin Dose 10 MG; Start 08/15/16 at 09:00 Carvedilol (Coreg) 12.5 mg BID PO Last administered on 08/22/16 08:58; Admin Dose 12.5 MG; Start 08/15/16 at 09:00 Clopidogrel Bisulfate (plaVIX) 75 mg DAILY PO Last administered on 08/22/16 09 :03; Admin Dose 75 MG; Start 08/15/16 at 09:00 Cyanocobalamin (Vitamin B12) 1,000 mcg DAILY PO Last administered on 08/22/16 09:04; Admin Dose 1,000 MCG; Start 08/15/16 at 09:00 Gabapentin (Neurontin) 300 mg BID PO Last administered on 08/22/16 09:02; Admin Dose 300 MG; Start 08/15/16 at 09:00 Losartan Potassium (Cozaar) 50 mg Q12 PO Last administered on 08/22/16 08:58; Admin Dose 50 MG; Start 08/15/16 at 09:00 Meclizine HCl (Antivert) 25 mg Q8H PRN PO VERTIGO; Start 08/15/16 at 06:30 Nitroglycerin (Nitroglycerin (Sl Tab) 0.4 Mg) 1 tab Q5M PRN SL CHEST PAIN Last administered on 08/18/16 08:58; Admin Dose 1 TAB; Start 08/15/16 at 06:30 Phenytoin (Dilantin) 300 mg HS PO Last administered on 08/20/16 20:38; Admin Dose 300 MG; Start 08/15/16 at 21:00 Ranolazine (Ranexa) 1,000 mg Q12 PO Last administered on 08/22/16 09:03; Admin Dose 1,000 MG; Start 08/15/16 at 10:00 Ondansetron HCl (Zofran Inj) 4 mg Q6H PRN IV NAUSEA AND/OR VOMITING; Start at 06:30 Acetaminophen (Tylenol Liquid) 650 mg Q6H PRN PO PAIN LEVEL 1-3 OR FEVER; Start 08/15/16 at 06:30 Zolpidem Tartrate (Ambien) 5 mg QHS PRN PO INSOMNIA Last administered on 23:02; Admin Dose 5 MG; Start 08/15/16 at 06:30 Docusate Sodium (Colace) 100 mg Q12H PRN PO CONSTIPATION Last administered on 05:25; Admin Dose 100 MG; Start 08/15/16 at 06:30 Magnesium Hydroxide (Milk Of Mag) 30 ml DAILY PRN PO CONSTIPATION Last administered on 08/20/16 12:52; Admin Dose 30 ML; Start 08/15/16 at 06:30 Pantoprazole (Protonix Tab) 40 mg DAILY@06 PO Last administered on 08/22/16 05 :20; Admin Dose 40 MG; Start 08/16/16 at 06:00 Enoxaparin Sodium (Lovenox) 40 mg DAILY SC Last administered on 08/22/16 09:07 ; Admin Dose 40 MG; Start 08/15/16 at 09:00 Insulin Glargine (Lantus) 15 unit DAILY@20 SC Last administered on 08/21/16 20 :28; Admin Dose 15 UNIT; Start 08/15/16 at 20:00 Miscellaneous Information 1 ea NOTE XX ; Start 08/15/16 at 07:30 Glucose (Glutose) 15 gm Q15M PRN PO DECREASED GLUCOSE; Start 08/15/16 at 07:30 Glucose (Glutose) 22.5 gm Q15M PRN PO DECREASED GLUCOSE; Start 08/15/16 at 07: 30 Dextrose (D50w Syringe) 25 ml Q15M PRN IV DECREASED GLUCOSE; Start 08/15/16 at 07:30 Dextrose (D50w Syringe) 50 ml Q15M PRN IV DECREASED GLUCOSE; Start 08/15/16 at 07:30 Glucagon (Glucagen) 1 mg Q15M PRN IM DECREASED GLUCOSE; Start 08/15/16 at 07:30 Glucose (Glutose) 15 gm Q15M PRN BUCCAL DECREASED GLUCOSE; Start 08/15/16 at 07 :30 Morphine Sulfate (Ms Contin (Er)) 15 mg Q12 PO Last administered on 08/22/16 09:02; Admin Dose 15 MG; Start 08/15/16 at 11:30 Alprazolam (Xanax) 0.5 mg Q8 PO Last administered on 08/22/16 15:02; Admin Dose 0.5 MG; Start 08/15/16 at 22:00 Hydromorphone HCl (Dilaudid) 0.5 mg Q4H PRN IV PAIN Last administered on 10:39; Admin Dose 0.5 MG; Start 08/20/16 at 14:30 Isosorbide Dinitrate (Isordil) 30 mg TID PO Last administered on 08/22/16 15: 04; Admin Dose 30 MG; Start 08/21/16 at 21:00 NICHOL ACOSTA Aug 22, 2016 18:01
[2016-08-22] MEDS: PHENYTOIN 100 MG CAP PO SCH (20:07)
[2016-08-22] MEDS: ATORVASTATIN 40 MG TAB PO SCH (20:07)
[2016-08-22] MEDS: INSULIN GLARGINE [LANtus] 3 ML PEN SC SCH (20:07)
[2016-08-23] VITALS (12 sets, daily range): BP systolic 120–143; BP diastolic 55–72; PULSE 60; RESP 17–20
[2016-08-23] MEDS: PANTOPRAZOLE (EC) 40 MG TAB PO SCH (05:05)
[2016-08-23] MEDS: FUROSEMIDE 40 MG INJ IV SCH ×2 (05:06→17:51)
[2016-08-23] MEDS: HYDROmorphONE 1 MG/ML SYG IV PRN ×3 (05:06→15:14)
[2016-08-23] MEDS: ALPRAZOLAM 0.25 MG TAB PO SCH ×3 (05:06→22:12)
[2016-08-23] MEDS: ASPIRIN 81 MG TAB PO SCH (09:19)
[2016-08-23] MEDS: LOSARTAN 50 MG TAB PO SCH ×2 (09:22→20:40)
[2016-08-23] MEDS: BACLOFEN 10 MG TAB PO SCH ×2 (09:23→20:41)
[2016-08-23] MEDS: ISOSORBIDE DINITRATE 10 MG TAB PO SCH ×3 (09:23→20:42)
[2016-08-23] MEDS: morphine (ER) 15 MG TAB PO SCH ×2 (09:25→20:43)
[2016-08-23] MEDS: GABAPENTIN 300 MG CAP PO SCH ×2 (09:25→20:39)
[2016-08-23] MEDS: CLOPIDOGREL 75 MG TAB PO SCH (09:26)
[2016-08-23] MEDS: AMLODIPINE 5 MG TAB PO SCH (09:26)
[2016-08-23] MEDS: CYANOCOBALAMIN 500 MCG TAB PO SCH (09:27)
[2016-08-23] MEDS: RANOLAZINE (SR) 500 MG TAB PO SCH ×2 (09:27→22:11)
[2016-08-23] MEDS: ENOXAPARIN 40 MG/0.4 ML SYG SC SCH (09:29)
[2016-08-23] MEDS: INSULIN ASPART [NOVOLOG] 3 ML PEN SC SCH ×4 (09:30→22:04)
--- NOTE | 2016-08-23 12:13 | CONS ---
Date/Time of Note Date/Time of Note DATE: 08/23/16 TIME: 12:08 Assessment/Plan Assessment/Plan Chief Complaint/Hosp Course IMPRESSION: 1. Angina refractory to medical therapy with known severe multivessel obstructive coronary artery disease, status post attempted CDL PROGRAM COORDINATOR with ongoing evaluation for cardiac transplant.-Negative troponin x 3 since admit 2. Coronary artery disease, status post coronary bypass grafting with all grafts occluded except for KNOTT to LAD with thereafter diffuse disease of the KNOTT, status post recent percutaneous transluminal coronary angioplasty to apical LAD. 3. Cardiomyopathy with severely depressed left ventricular ejection fraction approximately 15% by outside hospital echocardiogram at [facility] 07/31/2016. 4. History of automatic implantable cardioverter-defibrillator. 5. History of a percutaneous transluminal coronary angioplasty and stent placement prior to obtuse marginal 11/2014, now most recently PTCA alone to apical LAD at [facility] in last 2-3 weeks without sig change in sx 6. Hypertension, under reasonable control. 7. Dyslipidemia. 8. Possible development of vascular dementia. 9. Diabetes mellitus. 10. Seizure disorder. 11.Carotid stenosis 12.Encephalopathy 14. Anemia 15. Lower extremity weakness Recc: -Tele -serial ecg's -Continue current BB/CCB/ranexa/oral nitrates -Continue losartan afterload reduction -Continue lasix diuresis -Continue statin -Ongoing neuro eval and vascular surgery eval for carotid stenosis -Discussion with [facility] re possible transfer for higher level of care/ongoing transplant eval -Pain control -GI eval/colonscopy as outpatient per GI -PT eval ongoing with possible transfer to SNF yesterday Problems: Consultation Date/Type/Reason Admit Date/Time Aug 15, 2016 at 06:28 Initial Consult Date 08/15/2016 Type of Consultation: Cardiology Reason for Consultation Angina Referring Provider: CARLOS MARTINEZ MD Exam/Review of Systems Vital Signs Vitals Vital Signs Date Time Temp Pulse Resp B/P Pulse Ox O2 Delivery O2 Flow Rate FiO2 08/23/16 11:52 97.5 58 20 127/60 98 08/22/16 07:40 Nasal Cannula 2.0 Intake and Output 08/22/16 08/22/16 08/23/16 15:00 23:00 07:00 Intake Total 960 ml Balance 960 ml Exam Review of Systems: CONSTITUTIONAL: No fevers, chills. PULMONARY: No sob CARDIOVASCULAR: No chest pain/palpitations GASTROINTESTINAL: No nausea/vomiting. GENITOURINARY: No hematuria/dysuria. MUSCULOSKELETAL: No myagias/arthalgias. PSYCHIATRIC: The patient denies depression. NEUROLOGIC: Generalized weakness Constitutional: alert Psych: no complaints Head: normocephalic ENMT: mucosa pink and moist Neck: jvd (9 cm water), supple Respiratory: diminished breath sounds Cardiovascular: regular rate and rhythm Gastrointestinal: non-tender, soft Musculoskeletal: muscle tone (generalized weakness) Extremities: edema Neurological: other (No focal deficits) Results Results 24 hrs Laboratory Tests Test 08/22/16 12:15 08/22/16 17:36 08/22/16 19:54 08/23/16 00:44 Bedside Glucose 186 248 H 328 H 169 Test 08/23/16 07:42 Bedside Glucose 209 Medications Medications Current Medications Nitroglycerin/ Dextrose (Nitroglycerin 50 Mg/D5W (Pmx)) 250 ml @ 0 mls/hr TITRATE IV Last administered on 08/15/16 02:39; Admin Dose 1.5 MLS/HR; Start 08/15/16 at 02:30 Amlodipine Besylate (Norvasc) 5 mg DAILY PO Last administered on 08/23/16 09: 26; Admin Dose 5 MG; Start 08/15/16 at 09:00 Aspirin (Aspirin) 81 mg DAILY PO Last administered on 08/23/16 09:19; Admin Dose 81 MG; Start 08/15/16 at 09:00 Atorvastatin Calcium (Lipitor) 40 mg HS PO Last administered on 08/22/16 20:07 ; Admin Dose 40 MG; Start 08/15/16 at 21:00 Baclofen (Lioresal) 10 mg BID PO Last administered on 08/23/16 09:23; Admin Dose 10 MG; Start 08/15/16 at 09:00 Carvedilol (Coreg) 12.5 mg BID PO Last administered on 08/23/16 09:21; Admin Dose 12.5 MG; Start 08/15/16 at 09:00 Clopidogrel Bisulfate (plaVIX) 75 mg DAILY PO Last administered on 08/23/16 09 :26; Admin Dose 75 MG; Start 08/15/16 at 09:00 Cyanocobalamin (Vitamin B12) 1,000 mcg DAILY PO Last administered on 08/23/16 09:27; Admin Dose 1,000 MCG; Start 08/15/16 at 09:00 Gabapentin (Neurontin) 300 mg BID PO Last administered on 08/23/16 09:25; Admin Dose 300 MG; Start 08/15/16 at 09:00 Losartan Potassium (Cozaar) 50 mg Q12 PO Last administered on 08/23/16 09:22; Admin Dose 50 MG; Start 08/15/16 at 09:00 Meclizine HCl (Antivert) 25 mg Q8H PRN PO VERTIGO; Start 08/15/16 at 06:30 Nitroglycerin (Nitroglycerin (Sl Tab) 0.4 Mg) 1 tab Q5M PRN SL CHEST PAIN Last administered on 08/18/16 08:58; Admin Dose 1 TAB; Start 08/15/16 at 06:30 Phenytoin (Dilantin) 300 mg HS PO Last administered on 08/20/16 20:38; Admin Dose 300 MG; Start 08/15/16 at 21:00 Ranolazine (Ranexa) 1,000 mg Q12 PO Last administered on 08/23/16 09:27; Admin Dose 1,000 MG; Start 08/15/16 at 10:00 Ondansetron HCl (Zofran Inj) 4 mg Q6H PRN IV NAUSEA AND/OR VOMITING; Start at 06:30 Acetaminophen (Tylenol Liquid) 650 mg Q6H PRN PO PAIN LEVEL 1-3 OR FEVER; Start 08/15/16 at 06:30 Zolpidem Tartrate (Ambien) 5 mg QHS PRN PO INSOMNIA Last administered on 23:02; Admin Dose 5 MG; Start 08/15/16 at 06:30 Docusate Sodium (Colace) 100 mg Q12H PRN PO CONSTIPATION Last administered on 20:01; Admin Dose 100 MG; Start 08/15/16 at 06:30 Magnesium Hydroxide (Milk Of Mag) 30 ml DAILY PRN PO CONSTIPATION Last administered on 08/20/16 12:52; Admin Dose 30 ML; Start 08/15/16 at 06:30 Pantoprazole (Protonix Tab) 40 mg DAILY@06 PO Last administered on 08/23/16 05 :05; Admin Dose 40 MG; Start 08/16/16 at 06:00 Enoxaparin Sodium (Lovenox) 40 mg DAILY SC Last administered on 08/23/16 09:29 ; Admin Dose 40 MG; Start 08/15/16 at 09:00 Insulin Glargine (Lantus) 15 unit DAILY@20 SC Last administered on 08/22/16 20 :07; Admin Dose 15 UNIT; Start 08/15/16 at 20:00 Miscellaneous Information 1 ea NOTE XX ; Start 08/15/16 at 07:30 Glucose (Glutose) 15 gm Q15M PRN PO DECREASED GLUCOSE; Start 08/15/16 at 07:30 Glucose (Glutose) 22.5 gm Q15M PRN PO DECREASED GLUCOSE; Start 08/15/16 at 07: 30 Dextrose (D50w Syringe) 25 ml Q15M PRN IV DECREASED GLUCOSE; Start 08/15/16 at 07:30 Dextrose (D50w Syringe) 50 ml Q15M PRN IV DECREASED GLUCOSE; Start 08/15/16 at 07:30 Glucagon (Glucagen) 1 mg Q15M PRN IM DECREASED GLUCOSE; Start 08/15/16 at 07:30 Glucose (Glutose) 15 gm Q15M PRN BUCCAL DECREASED GLUCOSE; Start 08/15/16 at 07 :30 Morphine Sulfate (Ms Contin (Er)) 15 mg Q12 PO Last administered on 08/23/16 09:25; Admin Dose 15 MG; Start 08/15/16 at 11:30 Alprazolam (Xanax) 0.5 mg Q8 PO Last administered on 08/23/16 05:06; Admin Dose 0.5 MG; Start 08/15/16 at 22:00 Hydromorphone HCl (Dilaudid) 0.5 mg Q4H PRN IV PAIN Last administered on 09:40; Admin Dose 0.5 MG; Start 08/20/16 at 14:30 Isosorbide Dinitrate (Isordil) 30 mg TID PO Last administered on 08/23/16 09: 23; Admin Dose 30 MG; Start 08/21/16 at 21:00 NICHOL ACOSTA 24, 2017 12:13
--- NOTE | 2016-08-23 14:22 | CONS ---
Date/Time of Note Date/Time of Note DATE: 08/23/16 TIME: 14:19 Assessment/Plan Assessment/Plan Additional Assessment/Plan Assessment/Plan Assessment/Plan Chief Complaint/Hosp Course IMPRESSION: 1. Angina refractory to medical therapy . 2. Coronary artery disease, status post coronary bypass grafting with all grafts occluded except for KNOTT to LAD with thereafter diffuse disease of the KNOTT, status post recent percutaneous transluminal coronary angioplasty to apical LAD. 3. Cardiomyopathy with severely depressed left ventricular ejection fraction approximately 15% by outside hospital echocardiogram at [facility] 07/31/2016. 4. History of automatic implantable cardioverter-defibrillator. 5. History of a percutaneous transluminal coronary angioplasty and stent placement prior to obtuse marginal 11/2014, now most recently PTCA alone to apical LAD at [facility] in last 2-3 weeks without sig change in sx 6. Hypertension, under reasonable control. 7. Dyslipidemia. 8. Possible development of vascular dementia. 9. Diabetes mellitus. 10. Seizure disorder. 11.Carotid stenosis Plan pt.insist on doing colonoscopy.he is willing to take any risk,including for colonoscopy. if [facility] agrees then we can do virtual colonoscopy. Consultation Date/Type/Reason Admit Date/Time Aug 15, 2016 at 06:28 Initial Consult Date 08/18/16 Type of Consultation: Cardiology Referring Provider: CARLOS MARTINEZ MD 24 HR Interval Summary Constitutional: improved, no complaints Exam/Review of Systems Vital Signs Vitals Vital Signs Date Time Temp Pulse Resp B/P Pulse Ox O2 Delivery O2 Flow Rate FiO2 08/23/16 12:21 60 08/23/16 11:52 97.5 20 127/60 98 08/22/16 07:40 Nasal Cannula 2.0 Intake and Output 08/22/16 08/22/16 08/23/16 15:00 23:00 07:00 Intake Total 960 ml Balance 960 ml Exam Constitutional: alert, oriented, well developed Psych: nl mood/affect, no complaints Head: atraumatic, normocephalic Eyes: EOMI, PERRL, nl conjunctiva, nl lids, nl sclera ENMT: nl external ears & nose, nl lips & teeth, nl nasal mucosa & septum Neck: non-tender, supple Respiratory: clear to auscultation, normal air movement Cardiovascular: nl pulses, regular rate and rhythm Gastrointestinal: nl liver, spleen, non-tender, soft Musculoskeletal: nl extremities to inspection, nl gait and stance Extremities: normal pulses Neurological: TIMBER SKIDDER II-XII intact, nl mental status, nl speech, nl strength Skin: nl turgor, No rash or lesions Lymph: nl lymph nodes Results Results 24 hrs Laboratory Tests Test 08/22/16 17:36 08/22/16 19:54 08/23/16 00:44 08/23/16 07:42 Bedside Glucose 248 H 328 H 169 209 Test 08/23/16 12:26 Bedside Glucose 170 Medications Medications Current Medications Nitroglycerin/ Dextrose (Nitroglycerin 50 Mg/D5W (Pmx)) 250 ml @ 0 mls/hr TITRATE IV Last administered on 08/15/16 02:39; Admin Dose 1.5 MLS/HR; Start 08/15/16 at 02:30 Amlodipine Besylate (Norvasc) 5 mg DAILY PO Last administered on 08/23/16 09: 26; Admin Dose 5 MG; Start 08/15/16 at 09:00 Aspirin (Aspirin) 81 mg DAILY PO Last administered on 08/23/16 09:19; Admin Dose 81 MG; Start 08/15/16 at 09:00 Atorvastatin Calcium (Lipitor) 40 mg HS PO Last administered on 08/22/16 20:07 ; Admin Dose 40 MG; Start 08/15/16 at 21:00 Baclofen (Lioresal) 10 mg BID PO Last administered on 08/23/16 09:23; Admin Dose 10 MG; Start 08/15/16 at 09:00 Carvedilol (Coreg) 12.5 mg BID PO Last administered on 08/23/16 09:21; Admin Dose 12.5 MG; Start 08/15/16 at 09:00 Clopidogrel Bisulfate (plaVIX) 75 mg DAILY PO Last administered on 08/23/16 09 :26; Admin Dose 75 MG; Start 08/15/16 at 09:00 Cyanocobalamin (Vitamin B12) 1,000 mcg DAILY PO Last administered on 08/23/16 09:27; Admin Dose 1,000 MCG; Start 08/15/16 at 09:00 Gabapentin (Neurontin) 300 mg BID PO Last administered on 08/23/16 09:25; Admin Dose 300 MG; Start 08/15/16 at 09:00 Losartan Potassium (Cozaar) 50 mg Q12 PO Last administered on 08/23/16 09:22; Admin Dose 50 MG; Start 08/15/16 at 09:00 Meclizine HCl (Antivert) 25 mg Q8H PRN PO VERTIGO; Start 08/15/16 at 06:30 Nitroglycerin (Nitroglycerin (Sl Tab) 0.4 Mg) 1 tab Q5M PRN SL CHEST PAIN Last administered on 08/18/16 08:58; Admin Dose 1 TAB; Start 08/15/16 at 06:30 Phenytoin (Dilantin) 300 mg HS PO Last administered on 08/20/16 20:38; Admin Dose 300 MG; Start 08/15/16 at 21:00 Ranolazine (Ranexa) 1,000 mg Q12 PO Last administered on 08/23/16 09:27; Admin Dose 1,000 MG; Start 08/15/16 at 10:00 Ondansetron HCl (Zofran Inj) 4 mg Q6H PRN IV NAUSEA AND/OR VOMITING; Start at 06:30 Acetaminophen (Tylenol Liquid) 650 mg Q6H PRN PO PAIN LEVEL 1-3 OR FEVER; Start 08/15/16 at 06:30 Zolpidem Tartrate (Ambien) 5 mg QHS PRN PO INSOMNIA Last administered on 23:02; Admin Dose 5 MG; Start 08/15/16 at 06:30 Docusate Sodium (Colace) 100 mg Q12H PRN PO CONSTIPATION Last administered on 20:01; Admin Dose 100 MG; Start 08/15/16 at 06:30 Magnesium Hydroxide (Milk Of Mag) 30 ml DAILY PRN PO CONSTIPATION Last administered on 08/20/16 12:52; Admin Dose 30 ML; Start 08/15/16 at 06:30 Pantoprazole (Protonix Tab) 40 mg DAILY@06 PO Last administered on 08/23/16 05 :05; Admin Dose 40 MG; Start 08/16/16 at 06:00 Enoxaparin Sodium (Lovenox) 40 mg DAILY SC Last administered on 08/23/16 09:29 ; Admin Dose 40 MG; Start 08/15/16 at 09:00 Insulin Glargine (Lantus) 15 unit DAILY@20 SC Last administered on 08/22/16 20 :07; Admin Dose 15 UNIT; Start 08/15/16 at 20:00 Miscellaneous Information 1 ea NOTE XX ; Start 08/15/16 at 07:30 Glucose (Glutose) 15 gm Q15M PRN PO DECREASED GLUCOSE; Start 08/15/16 at 07:30 Glucose (Glutose) 22.5 gm Q15M PRN PO DECREASED GLUCOSE; Start 08/15/16 at 07: 30 Dextrose (D50w Syringe) 25 ml Q15M PRN IV DECREASED GLUCOSE; Start 08/15/16 at 07:30 Dextrose (D50w Syringe) 50 ml Q15M PRN IV DECREASED GLUCOSE; Start 08/15/16 at 07:30 Glucagon (Glucagen) 1 mg Q15M PRN IM DECREASED GLUCOSE; Start 08/15/16 at 07:30 Glucose (Glutose) 15 gm Q15M PRN BUCCAL DECREASED GLUCOSE; Start 08/15/16 at 07 :30 Morphine Sulfate (Ms Contin (Er)) 15 mg Q12 PO Last administered on 08/23/16 09:25; Admin Dose 15 MG; Start 08/15/16 at 11:30 Alprazolam (Xanax) 0.5 mg Q8 PO Last administered on 08/23/16 05:06; Admin Dose 0.5 MG; Start 08/15/16 at 22:00 Hydromorphone HCl (Dilaudid) 0.5 mg Q4H PRN IV PAIN Last administered on 09:40; Admin Dose 0.5 MG; Start 08/20/16 at 14:30 Isosorbide Dinitrate (Isordil) 30 mg TID PO Last administered on 08/23/16 12: 31; Admin Dose 30 MG; Start 08/21/16 at 21:00 CHANDRAKANT LOPEZ MD Aug 23, 2016 14:22
--- NOTE | 2016-08-23 14:35 | PN ---
Date/Time of Note Date/Time of Note DATE: 08/23/16 TIME: 14:33 Assessment/Plan VTE Prophylaxis VTE Prophylaxis Intervention: ambulation Lines/Catheters IV [facility]from [facility] [place] [facility] Urinary Cath still in place: No Assessment/Plan Chief Complaint/Hosp Course 1. Patient has carotid artery disease. 2. Coronary artery disease. 3. History of coronary artery bypass graft. 4. Atherosclerotic heart disease. 5. Angina. 6. Diabetes mellitus. 7. Dyslipidemia. 8. History of stent placement. 9. History of coronary angiogram and multiple Lexiscan Problems: Assessment/Plan 1. Discharge order given by Dr Cast, and pt awaiting transfer to SNF for rehab Subjective 24 Hr Interval Summary Constitutional: other (need additional help with ambulation) Eyes: no complaints ENT: no complaints Respiratory: no complaints Cardiovascular: chest pain, lightheadedness, orthopenea Gastrointestinal: no complaints Genitourinary: no complaints Musculoskeletal: no complaints Exam/Review of Systems Vital Signs Vitals Vital Signs Date Time Temp Pulse Resp B/P Pulse Ox O2 Delivery O2 Flow Rate FiO2 08/23/16 12:21 60 08/23/16 11:52 97.5 20 127/60 98 08/22/16 07:40 Nasal Cannula 2.0 Intake and Output 08/22/16 08/22/16 08/23/16 15:00 23:00 07:00 Intake Total 960 ml Balance 960 ml Exam Constitutional: alert, oriented, well developed Psych: no complaints Head: atraumatic, normocephalic Eyes: EOMI, nl conjunctiva Neck: supple Respiratory: clear to auscultation, normal air movement Cardiovascular: nl pulses, regular rate and rhythm Gastrointestinal: non-tender, soft Genitourinary - Male: nl penis Musculoskeletal: nl extremities to inspection Extremities: normal pulses Neurological: COMMERCIAL FISHER II-XII intact Results Results 24 hrs Laboratory Tests Test 08/22/16 17:36 08/22/16 19:54 08/23/16 00:44 08/23/16 07:42 Bedside Glucose 248 H 328 H 169 209 Test 08/23/16 12:26 Bedside Glucose 170 Medications Medications Current Medications Nitroglycerin/ Dextrose (Nitroglycerin 50 Mg/D5W (Pmx)) 250 ml @ 0 mls/hr TITRATE IV Last administered on 08/15/16t 02:39; Admin Dose 1.5 MLS/HR; Start 08/15/16 at 02:30 Amlodipine Besylate (Norvasc) 5 mg DAILY PO Last administered on 08/23/16 09: 26; Admin Dose 5 MG; Start 08/15/16 at 09:00 Aspirin (Aspirin) 81 mg DAILY PO Last administered on 08/23/16 09:19; Admin Dose 81 MG; Start 08/15/16 at 09:00 Atorvastatin Calcium (Lipitor) 40 mg HS PO Last administered on 08/22/16 20:07 ; Admin Dose 40 MG; Start 08/15/16 at 21:00 Baclofen (Lioresal) 10 mg BID PO Last administered on 08/23/16 09:23; Admin Dose 10 MG; Start 08/15/16 at 09:00 Carvedilol (Coreg) 12.5 mg BID PO Last administered on 08/23/16 09:21; Admin Dose 12.5 MG; Start 08/15/16 at 09:00 Clopidogrel Bisulfate (plaVIX) 75 mg DAILY PO Last administered on 08/23/16 09 :26; Admin Dose 75 MG; Start 08/15/16 at 09:00 Cyanocobalamin (Vitamin B12) 1,000 mcg DAILY PO Last administered on 08/23/16 09:27; Admin Dose 1,000 MCG; Start 08/15/16 at 09:00 Gabapentin (Neurontin) 300 mg BID PO Last administered on 08/23/16 09:25; Admin Dose 300 MG; Start 08/15/16 at 09:00 Losartan Potassium (Cozaar) 50 mg Q12 PO Last administered on 08/23/16 09:22; Admin Dose 50 MG; Start 08/15/16 at 09:00 Meclizine HCl (Antivert) 25 mg Q8H PRN PO VERTIGO; Start 08/15/16 at 06:30 Nitroglycerin (Nitroglycerin (Sl Tab) 0.4 Mg) 1 tab Q5M PRN SL CHEST PAIN Last administered on 08/18/16 08:58; Admin Dose 1 TAB; Start 08/15/16 at 06:30 Phenytoin (Dilantin) 300 mg HS PO Last administered on 08/20/16 20:38; Admin Dose 300 MG; Start 08/15/16 at 21:00 Ranolazine (Ranexa) 1,000 mg Q12 PO Last administered on 08/23/16 09:27; Admin Dose 1,000 MG; Start 08/15/16 at 10:00 Ondansetron HCl (Zofran Inj) 4 mg Q6H PRN IV NAUSEA AND/OR VOMITING; Start at 06:30 Acetaminophen (Tylenol Liquid) 650 mg Q6H PRN PO PAIN LEVEL 1-3 OR FEVER; Start 08/15/16 at 06:30 Zolpidem Tartrate (Ambien) 5 mg QHS PRN PO INSOMNIA Last administered on 23:02; Admin Dose 5 MG; Start 08/15/16 at 06:30 Docusate Sodium (Colace) 100 mg Q12H PRN PO CONSTIPATION Last administered on 20:01; Admin Dose 100 MG; Start 08/15/16 at 06:30 Magnesium Hydroxide (Milk Of Mag) 30 ml DAILY PRN PO CONSTIPATION Last administered on 08/20/16 12:52; Admin Dose 30 ML; Start 08/15/16 at 06:30 Pantoprazole (Protonix Tab) 40 mg DAILY@06 PO Last administered on 08/23/16 05 :05; Admin Dose 40 MG; Start 08/16/16 at 06:00 Enoxaparin Sodium (Lovenox) 40 mg DAILY SC Last administered on 08/23/16 09:29 ; Admin Dose 40 MG; Start 08/15/16 at 09:00 Insulin Glargine (Lantus) 15 unit DAILY@20 SC Last administered on 08/22/16 20 :07; Admin Dose 15 UNIT; Start 08/15/16 at 20:00 Miscellaneous Information 1 ea NOTE XX ; Start 08/15/16 at 07:30 Glucose (Glutose) 15 gm Q15M PRN PO DECREASED GLUCOSE; Start 08/15/16 at 07:30 Glucose (Glutose) 22.5 gm Q15M PRN PO DECREASED GLUCOSE; Start 08/15/16 at 07: 30 Dextrose (D50w Syringe) 25 ml Q15M PRN IV DECREASED GLUCOSE; Start 08/15/16 at 07:30 Dextrose (D50w Syringe) 50 ml Q15M PRN IV DECREASED GLUCOSE; Start 08/15/16 at 07:30 Glucagon (Glucagen) 1 mg Q15M PRN IM DECREASED GLUCOSE; Start 08/15/16 at 07:30 Glucose (Glutose) 15 gm Q15M PRN BUCCAL DECREASED GLUCOSE; Start 08/15/16 at 07 :30 Morphine Sulfate (Ms Contin (Er)) 15 mg Q12 PO Last administered on 08/23/16 09:25; Admin Dose 15 MG; Start 08/15/16 at 11:30 Alprazolam (Xanax) 0.5 mg Q8 PO Last administered on 08/23/16 05:06; Admin Dose 0.5 MG; Start 08/15/16 at 22:00 Hydromorphone HCl (Dilaudid) 0.5 mg Q4H PRN IV PAIN Last administered on 09:40; Admin Dose 0.5 MG; Start 08/20/16 at 14:30 Isosorbide Dinitrate (Isordil) 30 mg TID PO Last administered on 08/23/16 12: 31; Admin Dose 30 MG; Start 08/21/16 at 21:00 СВЕТЛАНА WINSTON Aug 23, 2016 14:35
--- NOTE | 2016-08-23 14:46 | CONS ---
DATE OF ADMISSION: 08/15/2016 DATE OF CONSULTATION: 08/22/2016 REASON FOR CONSULTATION: Preop colonoscopy before heart transplant. HISTORY OF PRESENT ILLNESS: The patient is a 56-year-old gentleman with history of coronary artery disease, diabetes mellitus, hypertension, comes to the hospital for chest pain and shortness of rickey th. The patient also has significant carotid artery disease and was seen by the neurologist. His e jection fraction is just 15% and Dr. Olsen and Dr. Martinez called me for a possible colonoscopy as a pediatric evaluation before heart transplant surgery. [facility] also wants colonoscopy to be done by out electrical wiring lineman and not by the [facility] call center coordinator, and I am surprised with that. PAST MEDICAL HISTORY: Positive for multiple nonobstructive coronary artery disease including 100% o f LAD obtuse brunch marginal, circumflex stent with a stenosis. The patient also has a history of c oronary artery bypass graft. ALLERGIES: SUMATRIPTAN AND EFFEXOR. SOCIAL HISTORY: None. MEDICATIONS: Reviewed. REVIEW OF SYSTEMS: Otherwise negative. PHYSICAL EXAMINATION VITALS: Stable. HEENT: Unremarkable. NECK: Supple, no thyromegaly, no lymphadenopathy. CARDIOVASCULAR: No murmur, gallop or click. LUNGS: Clear. EXTREMITIES: No edema. CENTRAL NERVOUS SYSTEM: Grossly within normal limits. LABORATORY DATA: His hematocrit is 34. BUN and creatinine within normal limits. Coagulation also was normal. The patient had a chest CT shows volume overload, pulmonary hypertension. He has a lef t-sided pacemaker with extensive coronary artery calcification. IMPRESSION: 1. Screening colonoscopy and as a preop before heart transplant. 2. Angina refractory to medical treatment. 3. Automatic implantable cardioverter defibrillator. 4. Hypertension. 5. Diabetes mellitus. 6. Seizure disorder. 7. Anemia. PLAN: At this point, is to continue cardiac care and close followup with a environmental protection geologist. The patie nt is a very high risk for colonoscopy sedation. I discussed with the patient, but he insists on do ing the procedure. I will again discuss with Dr. Olsen. If possible, we can get virtual colonosco py as an outpatient. Dictated By: CHANDRAKANT SHOEMAKER/MOISES Conf#: [id number] DID#: [id number] CC: NICHOL OLSEN MD; CHANDRAKANT LOPEZ MD; CARLOS MARTINEZ MD;*EndCC*
[2016-08-23] MEDS: ATORVASTATIN 40 MG TAB PO SCH (20:39)
[2016-08-23] MEDS: PHENYTOIN 100 MG CAP PO SCH (20:40)
[2016-08-23] MEDS: INSULIN GLARGINE [LANtus] 3 ML PEN SC SCH (20:49)
[2016-08-24] VITALS (12 sets, daily range): BP systolic 108–153; BP diastolic 58–71; PULSE 60; RESP 16–18
[2016-08-24] MEDS: HYDROmorphONE 1 MG/ML SYG IV PRN ×5 (04:11→21:26)
[2016-08-24] MEDS: PANTOPRAZOLE (EC) 40 MG TAB PO SCH (05:41)
[2016-08-24] MEDS: ALPRAZOLAM 0.25 MG TAB PO SCH ×3 (05:41→21:28)
[2016-08-24] MEDS: FUROSEMIDE 40 MG INJ IV SCH ×2 (05:42→17:28)
[2016-08-24] MEDS: INSULIN ASPART [NOVOLOG] 3 ML PEN SC SCH ×4 (08:00→20:56)
[2016-08-24] MEDS: GABAPENTIN 300 MG CAP PO SCH ×2 (09:14→20:44)
[2016-08-24] MEDS: CLOPIDOGREL 75 MG TAB PO SCH (09:14)
[2016-08-24] MEDS: BACLOFEN 10 MG TAB PO SCH ×2 (09:14→20:44)
[2016-08-24] MEDS: RANOLAZINE (SR) 500 MG TAB PO SCH ×2 (09:14→20:44)
[2016-08-24] MEDS: ISOSORBIDE DINITRATE 10 MG TAB PO SCH ×3 (09:14→20:46)
[2016-08-24] MEDS: morphine (ER) 15 MG TAB PO SCH ×2 (09:14→20:46)
[2016-08-24] MEDS: CYANOCOBALAMIN 500 MCG TAB PO SCH (09:15)
[2016-08-24] MEDS: LOSARTAN 50 MG TAB PO SCH ×2 (09:15→20:46)
[2016-08-24] MEDS: AMLODIPINE 5 MG TAB PO SCH (09:15)
[2016-08-24] MEDS: ASPIRIN 81 MG TAB PO SCH (09:15)
[2016-08-24] MEDS: ENOXAPARIN 40 MG/0.4 ML SYG SC SCH (09:40)
--- NOTE | 2016-08-24 12:28 | CARRPT ---
DATE OF PROCEDURE: 08/24/2016 CARDIOLOGY FOLLOWUP: Mr. Louis is complaining of constant chest discomfort and shortness of silvia ath, which he has always done, as per the nurse on ____ examination, and he also mentioned that he f eels weak in his legs when he walks. On examination, vital signs are stable. Blood pressure is 128/68, heart rate of 67, respiratory rat e of 18, and he is afebrile. In the laboratories, his sugar is elevated to 207. There are no other laboratories from today. The re are no new imaging studies. PHYSICAL EXAMINATION: GENERAL: He is conscious, alert, oriented, appears to be in no acute distress. HEAD: Normocephalic. NECK: JVP is not raised. CHEST: Bilateral symmetrical chest which is tender. HEART: Regular sinus rhythm, I/ systolic murmur. LUNGS: Clear to percussion and auscultation. ABDOMEN: Soft, nontender and benign. EXTREMITIES: Good femoral and pedal pulses. No femoral bruits. No pedal edema. No clubbing, no c yanosis. IMPRESSION: 1. Constant chest pains with chest tenderness, probably musculoskeletal in origin. 2. History of bypass surgery. 3. Severe ____ coronary artery disease, status post attempted CT, awaiting evaluation for cardiac t ransplant. 4. Cardiomyopathy, ejection fraction of 15% on July 31 at [facility]. 5. History of automatic implantable cardioverter-defibrillator. 6. History of angioplasty and stent placement ____ in November 2014. 7. Hypertension, which is under control. 8. Dyslipidemia. RECOMMENDATIONS AT DISCHARGE: The patient will begin on the same medications as well as no new symp toms and the vital signs are stable. Dictated By: FRANCA SETH MD, RA/MOISES Conf#: [id number] DID#: [id number]
--- NOTE | 2016-08-24 12:30 | CONS ---
Date/Time of Note Date/Time of Note DATE: 08/24/16 TIME: 12:29 Assessment/Plan Assessment/Plan Additional Assessment/Plan IMPRESSION: 1. Angina refractory to medical therapy . 2. Coronary artery disease, status post coronary bypass grafting with all grafts occluded except for KNOTT to LAD with thereafter diffuse disease of the KNOTT, status post recent percutaneous transluminal coronary angioplasty to apical LAD. 3. Cardiomyopathy with severely depressed left ventricular ejection fraction approximately 15% by outside hospital echocardiogram at [facility] 07/31/2016. 4. History of automatic implantable cardioverter-defibrillator. 5. History of a percutaneous transluminal coronary angioplasty and stent placement prior to obtuse marginal 11/2014, now most recently PTCA alone to apical LAD at [facility] in last 2-3 weeks without sig change in sx 6. Hypertension, under reasonable control. 7. Dyslipidemia. 8. Possible development of vascular dementia. 9. Diabetes mellitus. 10. Seizure disorder. 11.Carotid stenosis Plan pt.insist on doing colonoscopy.he is willing to take any risk,including for colonoscopy. if [facility] agrees then we can do virtual colonoscopy.discussed with pt.and has agreed Consultation Date/Type/Reason Admit Date/Time Aug 15, 2016 at 06:28 Initial Consult Date 08/18/16 Type of Consultation: Cardiology Referring Provider: CARLOS MARTINEZ MD 24 HR Interval Summary Free Text/Dictation weakness,need to ambulate Exam/Review of Systems Vital Signs Vitals Vital Signs Date Time Temp Pulse Resp B/P Pulse Ox O2 Delivery O2 Flow Rate FiO2 08/24/16 12:15 98.0 67 18 125/67 98 08/22/16 07:40 Nasal Cannula 2.0 Intake and Output 08/23/16 08/23/16 08/24/16 15:00 23:00 07:00 Intake Total 960 ml 120 ml Output Total 800 ml Balance 960 ml -680 ml Exam Constitutional: alert, oriented, well developed Psych: nl mood/affect, no complaints Head: atraumatic, normocephalic Eyes: EOMI, PERRL, nl conjunctiva, nl lids, nl sclera ENMT: nl external ears & nose, nl lips & teeth, nl nasal mucosa & septum Neck: non-tender, supple Respiratory: clear to auscultation, normal air movement Cardiovascular: nl pulses, regular rate and rhythm Gastrointestinal: nl liver, spleen, non-tender, soft Musculoskeletal: nl extremities to inspection, nl gait and stance Extremities: normal pulses 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, nl mental status, nl speech, nl strength Skin: nl turgor, No rash or lesions Lymph: nl lymph nodes Results Results 24 hrs Laboratory Tests Test 08/23/16 17:23 08/23/16 20:47 08/24/16 02:19 08/24/16 07:55 Bedside Glucose 294 H 332 H 163 125 Test 08/24/16 11:44 Bedside Glucose 207 Medications Medications Current Medications Nitroglycerin/ Dextrose (Nitroglycerin 50 Mg/D5W (Pmx)) 250 ml @ 0 mls/hr TITRATE IV Last administered on 08/15/16 02:39; Admin Dose 1.5 MLS/HR; Start 08/15/16 at 02:30 Amlodipine Besylate (Norvasc) 5 mg DAILY PO Last administered on 08/24/16 09: 15; Admin Dose 5 MG; Start 08/15/16 at 09:00 Aspirin (Aspirin) 81 mg DAILY PO Last administered on 08/24/16 09:15; Admin Dose 81 MG; Start 08/15/16 at 09:00 Atorvastatin Calcium (Lipitor) 40 mg HS PO Last administered on 08/23/16 20:39 ; Admin Dose 40 MG; Start 08/15/16 at 21:00 Baclofen (Lioresal) 10 mg BID PO Last administered on 08/24/16 09:14; Admin Dose 10 MG; Start 08/15/16 at 09:00 Carvedilol (Coreg) 12.5 mg BID PO Last administered on 08/24/16 09:15; Admin Dose 12.5 MG; Start 08/15/16 at 09:00 Clopidogrel Bisulfate (plaVIX) 75 mg DAILY PO Last administered on 08/24/16 09 :14; Admin Dose 75 MG; Start 08/15/16 at 09:00 Cyanocobalamin (Vitamin B12) 1,000 mcg DAILY PO Last administered on 08/24/16 09:15; Admin Dose 1,000 MCG; Start 08/15/16 at 09:00 Gabapentin (Neurontin) 300 mg BID PO Last administered on 08/24/16 09:14; Admin Dose 300 MG; Start 08/15/16 at 09:00 Losartan Potassium (Cozaar) 50 mg Q12 PO Last administered on 08/24/16 09:15; Admin Dose 50 MG; Start 08/15/16 at 09:00 Meclizine HCl (Antivert) 25 mg Q8H PRN PO VERTIGO; Start 08/15/16 at 06:30 Nitroglycerin (Nitroglycerin (Sl Tab) 0.4 Mg) 1 tab Q5M PRN SL CHEST PAIN Last administered on 08/18/16 08:58; Admin Dose 1 TAB; Start 08/15/16 at 06:30 Phenytoin (Dilantin) 300 mg HS PO Last administered on 08/23/16 20:40; Admin Dose 300 MG; Start 08/15/16 at 21:00 Ranolazine (Ranexa) 1,000 mg Q12 PO Last administered on 08/24/16 09:14; Admin Dose 1,000 MG; Start 08/15/16 at 10:00 Ondansetron HCl (Zofran Inj) 4 mg Q6H PRN IV NAUSEA AND/OR VOMITING; Start at 06:30 Acetaminophen (Tylenol Liquid) 650 mg Q6H PRN PO PAIN LEVEL 1-3 OR FEVER; Start 08/15/16 at 06:30 Zolpidem Tartrate (Ambien) 5 mg QHS PRN PO INSOMNIA Last administered on 23:02; Admin Dose 5 MG; Start 08/15/16 at 06:30 Docusate Sodium (Colace) 100 mg Q12H PRN PO CONSTIPATION Last administered on 20:01; Admin Dose 100 MG; Start 08/15/16 at 06:30 Magnesium Hydroxide (Milk Of Mag) 30 ml DAILY PRN PO CONSTIPATION Last administered on 08/20/16 12:52; Admin Dose 30 ML; Start 08/15/16 at 06:30 Pantoprazole (Protonix Tab) 40 mg DAILY@06 PO Last administered on 08/24/16 05 :41; Admin Dose 40 MG; Start 08/16/16 at 06:00 Enoxaparin Sodium (Lovenox) 40 mg DAILY SC Last administered on 08/24/16 09:40 ; Admin Dose 40 MG; Start 08/15/16 at 09:00 Insulin Glargine (Lantus) 15 unit DAILY@20 SC Last administered on 08/23/16 20 :49; Admin Dose 15 UNIT; Start 08/15/16 at 20:00 Miscellaneous Information 1 ea NOTE XX ; Start 08/15/16 at 07:30 Glucose (Glutose) 15 gm Q15M PRN PO DECREASED GLUCOSE; Start 08/15/16 at 07:30 Glucose (Glutose) 22.5 gm Q15M PRN PO DECREASED GLUCOSE; Start 08/15/16 at 07: 30 Dextrose (D50w Syringe) 25 ml Q15M PRN IV DECREASED GLUCOSE; Start 08/15/16 at 07:30 Dextrose (D50w Syringe) 50 ml Q15M PRN IV DECREASED GLUCOSE; Start 08/15/16 at 07:30 Glucagon (Glucagen) 1 mg Q15M PRN IM DECREASED GLUCOSE; Start 08/15/16 at 07:30 Glucose (Glutose) 15 gm Q15M PRN BUCCAL DECREASED GLUCOSE; Start 08/15/16 at 07 :30 Morphine Sulfate (Ms Contin (Er)) 15 mg Q12 PO Last administered on 08/24/16 09:14; Admin Dose 15 MG; Start 08/15/16 at 11:30 Alprazolam (Xanax) 0.5 mg Q8 PO Last administered on 08/24/16 05:41; Admin Dose 0.5 MG; Start 08/15/16 at 22:00 Hydromorphone HCl (Dilaudid) 0.5 mg Q4H PRN IV PAIN Last administered on 09:15; Admin Dose 0.5 MG; Start 08/20/16 at 14:30 Isosorbide Dinitrate (Isordil) 30 mg TID PO Last administered on 08/24/16 09: 14; Admin Dose 30 MG; Start 08/21/16 at 21:00 CHANDRAKANT LOPEZ MD Aug 24, 2016 12:30
--- NOTE | 2016-08-24 17:44 | PN ---
Date/Time of Note Date/Time of Note DATE: 08/24/16 TIME: 17:41 Assessment/Plan VTE Prophylaxis VTE Prophylaxis Intervention: ambulation Lines/Catheters IV [facility] [facility] Urinary Cath still in place: No Assessment/Plan Chief Complaint/Hosp Course 1. Patient has carotid artery disease. 2. Coronary artery disease. 3. History of coronary artery bypass graft. 4. Atherosclerotic heart disease. 5. Angina. 6. Diabetes mellitus. 7. Dyslipidemia. 8. History of stent placement. 9. History of coronary angiogram and multiple Lexiscan Problems: Assessment/Plan 1. Discharge planning to SNF, continuous pillowcase cutter aware 2. PT continue to ambulate Subjective 24 Hr Interval Summary Constitutional: improved Eyes: no complaints Musculoskeletal: restricted range of motion Exam/Review of Systems Vital Signs Vitals Vital Signs Date Time Temp Pulse Resp B/P Pulse Ox O2 Delivery O2 Flow Rate FiO2 08/24/16 16:42 97.0 60 18 108/58 98 08/22/16 07:40 Nasal Cannula 2.0 Intake and Output 08/23/16 08/23/16 08/24/16 15:00 23:00 07:00 Intake Total 960 ml 120 ml Output Total 800 ml Balance 960 ml -680 ml Exam Constitutional: alert, oriented Psych: no complaints Head: normocephalic Eyes: nl conjunctiva ENMT: nl external ears & nose Neck: supple Respiratory: clear to auscultation Cardiovascular: regular rate and rhythm Musculoskeletal: muscle weakness, other (need walker) Results Results 24 hrs Laboratory Tests Test 08/23/16 20:47 08/24/16 02:19 08/24/16 07:55 08/24/16 11:44 Bedside Glucose 332 H 163 125 207 Test 08/24/16 17:14 Bedside Glucose 284 H Medications Medications Current Medications Nitroglycerin/ Dextrose (Nitroglycerin 50 Mg/D5W (Pmx)) 250 ml @ 0 mls/hr TITRATE IV Last administered on 08/15/16 02:39; Admin Dose 1.5 MLS/HR; Start 08/15/16 at 02:30 Amlodipine Besylate (Norvasc) 5 mg DAILY PO Last administered on 08/24/16 09: 15; Admin Dose 5 MG; Start 08/15/16 at 09:00 Aspirin (Aspirin) 81 mg DAILY PO Last administered on 08/24/16 09:15; Admin Dose 81 MG; Start 08/15/16 at 09:00 Atorvastatin Calcium (Lipitor) 40 mg HS PO Last administered on 08/23/16 20:39 ; Admin Dose 40 MG; Start 08/15/16 at 21:00 Baclofen (Lioresal) 10 mg BID PO Last administered on 08/24/16 09:14; Admin Dose 10 MG; Start 08/15/16 at 09:00 Carvedilol (Coreg) 12.5 mg BID PO Last administered on 08/24/16 09:15; Admin Dose 12.5 MG; Start 08/15/16 at 09:00 Clopidogrel Bisulfate (plaVIX) 75 mg DAILY PO Last administered on 08/24/16 09 :14; Admin Dose 75 MG; Start 08/15/16 at 09:00 Cyanocobalamin (Vitamin B12) 1,000 mcg DAILY PO Last administered on 08/24/16 09:15; Admin Dose 1,000 MCG; Start 08/15/16 at 09:00 Gabapentin (Neurontin) 300 mg BID PO Last administered on 08/24/16 09:14; Admin Dose 300 MG; Start 08/15/16 at 09:00 Losartan Potassium (Cozaar) 50 mg Q12 PO Last administered on 08/24/16 09:15; Admin Dose 50 MG; Start 08/15/16 at 09:00 Meclizine HCl (Antivert) 25 mg Q8H PRN PO VERTIGO; Start 08/15/16 at 06:30 Nitroglycerin (Nitroglycerin (Sl Tab) 0.4 Mg) 1 tab Q5M PRN SL CHEST PAIN Last administered on 08/18/16 08:58; Admin Dose 1 TAB; Start 08/15/16 at 06:30 Phenytoin (Dilantin) 300 mg HS PO Last administered on 08/23/16 20:40; Admin Dose 300 MG; Start 08/15/16 at 21:00 Ranolazine (Ranexa) 1,000 mg Q12 PO Last administered on 08/24/16 09:14; Admin Dose 1,000 MG; Start 08/15/16 at 10:00 Ondansetron HCl (Zofran Inj) 4 mg Q6H PRN IV NAUSEA AND/OR VOMITING; Start at 06:30 Acetaminophen (Tylenol Liquid) 650 mg Q6H PRN PO PAIN LEVEL 1-3 OR FEVER; Start 08/15/16 at 06:30 Zolpidem Tartrate (Ambien) 5 mg QHS PRN PO INSOMNIA Last administered on 23:02; Admin Dose 5 MG; Start 08/15/16 at 06:30 Docusate Sodium (Colace) 100 mg Q12H PRN PO CONSTIPATION Last administered on 20:01; Admin Dose 100 MG; Start 08/15/16 at 06:30 Magnesium Hydroxide (Milk Of Mag) 30 ml DAILY PRN PO CONSTIPATION Last administered on 08/20/16 12:52; Admin Dose 30 ML; Start 08/15/16 at 06:30 Pantoprazole (Protonix Tab) 40 mg DAILY@06 PO Last administered on 08/24/16 05 :41; Admin Dose 40 MG; Start 08/16/16 at 06:00 Enoxaparin Sodium (Lovenox) 40 mg DAILY SC Last administered on 08/24/16 09:40 ; Admin Dose 40 MG; Start 08/15/16 at 09:00 Insulin Glargine (Lantus) 15 unit DAILY@20 SC Last administered on 08/23/16 20 :49; Admin Dose 15 UNIT; Start 08/15/16 at 20:00 Miscellaneous Information 1 ea NOTE XX ; Start 08/15/16 at 07:30 Glucose (Glutose) 15 gm Q15M PRN PO DECREASED GLUCOSE; Start 08/15/16 at 07:30 Glucose (Glutose) 22.5 gm Q15M PRN PO DECREASED GLUCOSE; Start 08/15/16 at 07: 30 Dextrose (D50w Syringe) 25 ml Q15M PRN IV DECREASED GLUCOSE; Start 08/15/16 at 07:30 Dextrose (D50w Syringe) 50 ml Q15M PRN IV DECREASED GLUCOSE; Start 08/15/16 at 07:30 Glucagon (Glucagen) 1 mg Q15M PRN IM DECREASED GLUCOSE; Start 08/15/16 at 07:30 Glucose (Glutose) 15 gm Q15M PRN BUCCAL DECREASED GLUCOSE; Start 08/15/16 at 07 :30 Morphine Sulfate (Ms Contin (Er)) 15 mg Q12 PO Last administered on 08/24/16 09:14; Admin Dose 15 MG; Start 08/15/16 at 11:30 Alprazolam (Xanax) 0.5 mg Q8 PO Last administered on 08/24/16 13:27; Admin Dose 0.5 MG; Start 08/15/16 at 22:00 Hydromorphone HCl (Dilaudid) 0.5 mg Q4H PRN IV PAIN Last administered on 17:28; Admin Dose 0.5 MG; Start 08/20/16 at 14:30 Isosorbide Dinitrate (Isordil) 30 mg TID PO Last administered on 08/24/16 12: 19; Admin Dose 30 MG; Start 08/21/16 at 21:00 СВЕТЛАНА WINSTON 25, 2017 17:44
[2016-08-24] MEDS: ATORVASTATIN 40 MG TAB PO SCH (20:44)
[2016-08-24] MEDS: PHENYTOIN 100 MG CAP PO SCH (20:47)
[2016-08-24] MEDS: INSULIN GLARGINE [LANtus] 3 ML PEN SC SCH (20:55)
[2016-08-25] VITALS (13 sets, daily range): BP systolic 108–136; BP diastolic 60–71; PULSE 60–64; RESP 18–61
[2016-08-25] MEDS: HYDROmorphONE 1 MG/ML SYG IV PRN ×6 (01:24→22:21)
[2016-08-25] MEDS: FUROSEMIDE 40 MG INJ IV SCH ×2 (05:38→18:14)
[2016-08-25] MEDS: PANTOPRAZOLE (EC) 40 MG TAB PO SCH (05:38)
[2016-08-25] MEDS: ALPRAZOLAM 0.25 MG TAB PO SCH ×3 (05:38→22:21)
--- NOTE | 2016-08-25 06:49 | PN ---
DATE: 08/25/2016 CARDIOLOGY FOLLOWUP SUBJECTIVE: On questioning, the patient complains of constant chest discomfort that he has had for the last few days and denies any other complaints. The chest pain gets worse with breathing. OBJECTIVE: VITAL SIGNS: Stable. Blood pressure is 135/63, heart rate of 67, respiratory rate 18, afebrile. NECK: JVD not raised. CHEST: Bilaterally symmetrical and tender in the left side of the chest. HEART: PMI localized in the fourth intercostal space in the midclavicular line. S1 and S2 are regu lar. I/ systolic murmur is heard over the apex. LUNGS: Clear to percussion and auscultation. ABDOMEN: Soft, nontender. Belly without any organomegaly. EXTREMITIES: No pedal edema. No clubbing, no cyanosis, and good pedal pulses. LABORATORY AND IMAGING DATA: There is no new lab data to date, and there is no new imaging report a s well. IMPRESSION: 1. Coronary artery disease with history of coronary bypass surgery with all the graft being occlude d except for KNOTT to LAD with diffuse disease of the KNOTT status post re-stent PTCA of the apical LA D. 2. Constant chest pain, probably musculoskeletal in origin. There is local chest tenderness. 3. Cardiomyopathy with ejection fraction of 15%. 4. History of AICD. 5. Hypertension which is under control. 6. Dyslipidemia. RECOMMENDATIONS: The patient is being evaluated for transfer to [facility] for cardiac transplant. In the meantime, I would recommend Tylenol around the clock to help his musculoskeletal component of the c hest pain. We will continue with his Isordil, Lasix, Lipitor, amlodipine, aspirin, Coreg, and Plavi x. We will also get CPKs just to make sure the patient does not have any muscle pain because of bridget ng on Lipitor. Dictated By: FRANCA SETH MD, RA/MOISES Conf#: [id number] DID#: [id number]
[2016-08-25] MEDS: GABAPENTIN 300 MG CAP PO SCH ×2 (09:22→20:54)
[2016-08-25] MEDS: morphine (ER) 15 MG TAB PO SCH ×2 (09:22→20:56)
[2016-08-25] MEDS: RANOLAZINE (SR) 500 MG TAB PO SCH ×2 (09:22→20:55)
[2016-08-25] MEDS: ASPIRIN 81 MG TAB PO SCH (09:22)
[2016-08-25] MEDS: CLOPIDOGREL 75 MG TAB PO SCH (09:22)
[2016-08-25] MEDS: BACLOFEN 10 MG TAB PO SCH ×2 (09:23→20:55)
[2016-08-25] MEDS: CYANOCOBALAMIN 500 MCG TAB PO SCH (09:23)
[2016-08-25] MEDS: LOSARTAN 50 MG TAB PO SCH ×2 (09:23→20:55)
[2016-08-25] MEDS: ISOSORBIDE DINITRATE 10 MG TAB PO SCH ×3 (09:23→20:55)
[2016-08-25] MEDS: AMLODIPINE 5 MG TAB PO SCH (09:24)
[2016-08-25] MEDS: INSULIN ASPART [NOVOLOG] 3 ML PEN SC SCH ×4 (09:29→21:02)
[2016-08-25] MEDS: ENOXAPARIN 40 MG/0.4 ML SYG SC SCH (09:30)
--- NOTE | 2016-08-25 19:00 | CONS ---
Date/Time of Note Date/Time of Note DATE: 08/25/16 TIME: 18:59 Assessment/Plan Assessment/Plan Additional Assessment/Plan IMPRESSION: 1. Angina refractory to medical therapy . 2. Coronary artery disease, status post coronary bypass grafting with all grafts occluded except for KNOTT to LAD with thereafter diffuse disease of the KNOTT, status post recent percutaneous transluminal coronary angioplasty to apical LAD. 3. Cardiomyopathy with severely depressed left ventricular ejection fraction approximately 15% by outside hospital echocardiogram at [facility] 07/31/2016. 4. History of automatic implantable cardioverter-defibrillator. 5. History of a percutaneous transluminal coronary angioplasty and stent placement prior to obtuse marginal 11/2014, now most recently PTCA alone to apical LAD at [facility] in last 2-3 weeks without sig change in sx 6. Hypertension, under reasonable control. 7. Dyslipidemia. 8. Possible development of vascular dementia. 9. Diabetes mellitus. 10. Seizure disorder. 11.Carotid stenosis 12. Patient is muscle weakness and walks very slowly with a walker Plan pt.insist on doing colonoscopy.he is willing to take any risk,including from colonoscopy. if [facility] agrees then we can do virtual colonoscopy.discussed with pt.and has agreed Consultation Date/Type/Reason Admit Date/Time Aug 15, 2016 at 06:28 Initial Consult Date 08/18/16 Type of Consultation: Cardiology Referring Provider: CARLOS MARTINEZ MD 24 HR Interval Summary Free Text/Dictation Complaints of muscle pain Exam/Review of Systems Vital Signs Vitals Vital Signs Date Time Temp Pulse Resp B/P Pulse Ox O2 Delivery O2 Flow Rate FiO2 08/25/16 16:47 97.2 60 18 127/63 98 08/25/16 05:36 Room Air 08/22/16 07:40 2.0 Intake and Output 08/24/16 08/24/16 08/25/16 15:00 23:00 07:00 Intake Total 800 ml Output Total 1000 ml Balance -200 ml Exam Constitutional: alert, oriented, well developed Psych: nl mood/affect, no complaints Head: atraumatic, normocephalic Eyes: EOMI, PERRL, nl conjunctiva, nl lids, nl sclera ENMT: nl external ears & nose, nl lips & teeth, nl nasal mucosa & septum Neck: non-tender, supple Respiratory: clear to auscultation, normal air movement Cardiovascular: nl pulses, regular rate and rhythm Gastrointestinal: nl liver, spleen, non-tender, soft Musculoskeletal: nl extremities to inspection, nl gait and stance Extremities: normal pulses 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, nl mental status, nl speech, nl strength Skin: nl turgor, No rash or lesions Lymph: nl lymph nodes Results Results 24 hrs Laboratory Tests Test 08/24/16 20:43 08/25/16 08:08 08/25/16 12:30 08/25/16 17:10 Bedside Glucose 202 156 166 192 Medications Medications Current Medications Nitroglycerin/ Dextrose (Nitroglycerin 50 Mg/D5W (Pmx)) 250 ml @ 0 mls/hr TITRATE IV Last administered on 08/15/16 02:39; Admin Dose 1.5 MLS/HR; Start 08/15/16 at 02:30 Amlodipine Besylate (Norvasc) 5 mg DAILY PO Last administered on 08/25/16 09: 24; Admin Dose 5 MG; Start 08/15/16 at 09:00 Aspirin (Aspirin) 81 mg DAILY PO Last administered on 08/25/16 09:22; Admin Dose 81 MG; Start 08/15/16 at 09:00 Atorvastatin Calcium (Lipitor) 40 mg HS PO Last administered on 08/24/16 20:44 ; Admin Dose 40 MG; Start 08/15/16 at 21:00 Baclofen (Lioresal) 10 mg BID PO Last administered on 08/25/16 09:23; Admin Dose 10 MG; Start 08/15/16 at 09:00 Carvedilol (Coreg) 12.5 mg BID PO Last administered on 08/25/16 09:24; Admin Dose 12.5 MG; Start 08/15/16 at 09:00 Clopidogrel Bisulfate (plaVIX) 75 mg DAILY PO Last administered on 08/25/16 09 :22; Admin Dose 75 MG; Start 08/15/16 at 09:00 Cyanocobalamin (Vitamin B12) 1,000 mcg DAILY PO Last administered on 08/25/16 09:23; Admin Dose 1,000 MCG; Start 08/15/16 at 09:00 Gabapentin (Neurontin) 300 mg BID PO Last administered on 08/25/16 09:22; Admin Dose 300 MG; Start 08/15/16 at 09:00 Losartan Potassium (Cozaar) 50 mg Q12 PO Last administered on 08/25/16 09:23; Admin Dose 50 MG; Start 08/15/16 at 09:00 Meclizine HCl (Antivert) 25 mg Q8H PRN PO VERTIGO; Start 08/15/16 at 06:30 Nitroglycerin (Nitroglycerin (Sl Tab) 0.4 Mg) 1 tab Q5M PRN SL CHEST PAIN Last administered on 08/18/16 08:58; Admin Dose 1 TAB; Start 08/15/16 at 06:30 Phenytoin (Dilantin) 300 mg HS PO Last administered on 08/24/16 20:47; Admin Dose 300 MG; Start 08/15/16 at 21:00 Ranolazine (Ranexa) 1,000 mg Q12 PO Last administered on 08/25/16 09:22; Admin Dose 1,000 MG; Start 08/15/16 at 10:00 Ondansetron HCl (Zofran Inj) 4 mg Q6H PRN IV NAUSEA AND/OR VOMITING; Start at 06:30 Acetaminophen (Tylenol Liquid) 650 mg Q6H PRN PO PAIN LEVEL 1-3 OR FEVER; Start 08/15/16 at 06:30 Zolpidem Tartrate (Ambien) 5 mg QHS PRN PO INSOMNIA Last administered on 23:02; Admin Dose 5 MG; Start 08/15/16 at 06:30 Docusate Sodium (Colace) 100 mg Q12H PRN PO CONSTIPATION Last administered on 20:01; Admin Dose 100 MG; Start 08/15/16 at 06:30 Magnesium Hydroxide (Milk Of Mag) 30 ml DAILY PRN PO CONSTIPATION Last administered on 08/20/16 12:52; Admin Dose 30 ML; Start 08/15/16 at 06:30 Pantoprazole (Protonix Tab) 40 mg DAILY@06 PO Last administered on 08/25/16 05 :38; Admin Dose 40 MG; Start 08/16/16 at 06:00 Enoxaparin Sodium (Lovenox) 40 mg DAILY SC Last administered on 08/25/16 09:30 ; Admin Dose 40 MG; Start 08/15/16 at 09:00 Insulin Glargine (Lantus) 15 unit DAILY@20 SC Last administered on 08/24/16 20 :55; Admin Dose 15 UNIT; Start 08/15/16 at 20:00 Miscellaneous Information 1 ea NOTE XX ; Start 08/15/16 at 07:30 Glucose (Glutose) 15 gm Q15M PRN PO DECREASED GLUCOSE; Start 08/15/16 at 07:30 Glucose (Glutose) 22.5 gm Q15M PRN PO DECREASED GLUCOSE; Start 08/15/16 at 07: 30 Dextrose (D50w Syringe) 25 ml Q15M PRN IV DECREASED GLUCOSE; Start 08/15/16 at 07:30 Dextrose (D50w Syringe) 50 ml Q15M PRN IV DECREASED GLUCOSE; Start 08/15/16 at 07:30 Glucagon (Glucagen) 1 mg Q15M PRN IM DECREASED GLUCOSE; Start 08/15/16 at 07:30 Glucose (Glutose) 15 gm Q15M PRN BUCCAL DECREASED GLUCOSE; Start 08/15/16 at 07 :30 Morphine Sulfate (Ms Contin (Er)) 15 mg Q12 PO Last administered on 08/25/16 09:22; Admin Dose 15 MG; Start 08/15/16 at 11:30 Alprazolam (Xanax) 0.5 mg Q8 PO Last administered on 08/25/16 13:58; Admin Dose 0.5 MG; Start 08/15/16 at 22:00 Hydromorphone HCl (Dilaudid) 0.5 mg Q4H PRN IV PAIN Last administered on 18:13; Admin Dose 0.5 MG; Start 08/20/16 at 14:30 Isosorbide Dinitrate (Isordil) 30 mg TID PO Last administered on 08/25/16 09: 23; Admin Dose 30 MG; Start 08/21/16 at 21:00 CHANDRAKANT LOPEZ MD Aug 25, 2016 19:00
[2016-08-25] MEDS: ATORVASTATIN 40 MG TAB PO SCH (20:55)
[2016-08-25] MEDS: PHENYTOIN 100 MG CAP PO SCH (20:55)
[2016-08-25] MEDS: INSULIN GLARGINE [LANtus] 3 ML PEN SC SCH (21:01)
[2016-08-26] VITALS (12 sets, daily range): BP systolic 112–141; BP diastolic 57–69; PULSE 59–60; RESP 16–20
[2016-08-26] MEDS: HYDROmorphONE 1 MG/ML SYG IV PRN ×6 (02:32→22:28)
[2016-08-26] MEDS: PANTOPRAZOLE (EC) 40 MG TAB PO SCH (06:25)
[2016-08-26] MEDS: FUROSEMIDE 40 MG INJ IV SCH ×2 (06:26→17:37)
[2016-08-26] MEDS: ALPRAZOLAM 0.25 MG TAB PO SCH ×3 (06:26→22:27)
[2016-08-26] MEDS: ASPIRIN 81 MG TAB PO SCH (08:57)
[2016-08-26] MEDS: CLOPIDOGREL 75 MG TAB PO SCH (08:57)
[2016-08-26] MEDS: morphine (ER) 15 MG TAB PO SCH ×2 (08:57→21:12)
[2016-08-26] MEDS: BACLOFEN 10 MG TAB PO SCH ×2 (08:58→21:10)
[2016-08-26] MEDS: RANOLAZINE (SR) 500 MG TAB PO SCH ×2 (08:58→21:10)
[2016-08-26] MEDS: ISOSORBIDE DINITRATE 10 MG TAB PO SCH ×3 (08:59→21:11)
[2016-08-26] MEDS: GABAPENTIN 300 MG CAP PO SCH ×2 (08:59→21:10)
[2016-08-26] MEDS: CYANOCOBALAMIN 500 MCG TAB PO SCH (08:59)
[2016-08-26] MEDS: LOSARTAN 50 MG TAB PO SCH ×2 (09:00→21:10)
[2016-08-26] MEDS: AMLODIPINE 5 MG TAB PO SCH (09:01)
[2016-08-26] MEDS: INSULIN ASPART [NOVOLOG] 3 ML PEN SC SCH ×4 (09:03→21:16)
[2016-08-26] MEDS: ENOXAPARIN 40 MG/0.4 ML SYG SC SCH (09:04)
--- NOTE | 2016-08-26 16:20 | QN ---
Documentation Comment [id number] note CARLOS MARTINEZ MD Aug 26, 2016 16:19
--- NOTE | 2016-08-26 17:32 | PN ---
Date/Time of Note Date/Time of Note DATE: 08/26/16 TIME: 17:29 Assessment/Plan VTE Prophylaxis VTE Prophylaxis Intervention: other Lines/Catheters IV Catheter Type (from [facility]): [facility] Urinary Cath still in place: No Assessment/Plan Chief Complaint/Hosp Course IMPRESSION 1. Patient has carotid artery disease. 2. Coronary artery disease. 3. History of coronary artery bypass graft. 4. Atherosclerotic heart disease. 5. Angina. 6. Diabetes mellitus. 7. Dyslipidemia. 8. History of stent placement. 9. History of coronary angiogram and multiple Lexiscans. plan per neuro and vascular PT/OT SNF dec pain meds gi consult for cardiac tranplant work up out pt need rehab per pt Problems: Subjective 24 Hr Interval Summary Eyes: no complaints Respiratory: no complaints Cardiovascular: no complaints Exam/Review of Systems Vital Signs Vitals Vital Signs Date Time Temp Pulse Resp B/P Pulse Ox O2 Delivery O2 Flow Rate FiO2 08/26/16 16:43 98.5 60 20 112/64 98 08/26/16 06:33 Nasal Cannula 2.0 Intake and Output 08/25/16 08/25/16 08/26/16 15:00 23:00 07:00 Intake Total 900 ml Output Total 1000 ml Balance -100 ml Exam Neck: supple Respiratory: clear to auscultation Cardiovascular: regular rate and rhythm Gastrointestinal: soft Results Results 24 hrs Laboratory Tests Test 08/25/16 20:22 08/26/16 08:17 08/26/16 11:58 08/26/16 16:49 Bedside Glucose 191 185 208 292 H Medications Medications Current Medications Nitroglycerin/ Dextrose (Nitroglycerin 50 Mg/D5W (Pmx)) 250 ml @ 0 mls/hr TITRATE IV Last administered on 08/15/16 02:39; Admin Dose 1.5 MLS/HR; Start 08/15/16 at 02:30 Amlodipine Besylate (Norvasc) 5 mg DAILY PO Last administered on 08/26/16 09: 01; Admin Dose 5 MG; Start 08/15/16 at 09:00 Aspirin (Aspirin) 81 mg DAILY PO Last administered on 08/26/16 08:57; Admin Dose 81 MG; Start 08/15/16 at 09:00 Atorvastatin Calcium (Lipitor) 40 mg HS PO Last administered on 08/25/16 20:55 ; Admin Dose 40 MG; Start 08/15/16 at 21:00 Baclofen (Lioresal) 10 mg BID PO Last administered on 08/26/16 08:58; Admin Dose 10 MG; Start 08/15/16 at 09:00 Carvedilol (Coreg) 12.5 mg BID PO Last administered on 08/26/16 09:01; Admin Dose 12.5 MG; Start 08/15/16 at 09:00 Clopidogrel Bisulfate (plaVIX) 75 mg DAILY PO Last administered on 08/26/16 08 :57; Admin Dose 75 MG; Start 08/15/16 at 09:00 Cyanocobalamin (Vitamin B12) 1,000 mcg DAILY PO Last administered on 08/26/16 08:59; Admin Dose 1,000 MCG; Start 08/15/16 at 09:00 Gabapentin (Neurontin) 300 mg BID PO Last administered on 08/25/16 20:54; Admin Dose 300 MG; Start 08/15/16 at 09:00 Losartan Potassium (Cozaar) 50 mg Q12 PO Last administered on 08/26/16 09:00; Admin Dose 50 MG; Start 08/15/16 at 09:00 Meclizine HCl (Antivert) 25 mg Q8H PRN PO VERTIGO; Start 08/15/16 at 06:30 Nitroglycerin (Nitroglycerin (Sl Tab) 0.4 Mg) 1 tab Q5M PRN SL CHEST PAIN Last administered on 08/18/16 08:58; Admin Dose 1 TAB; Start 08/15/16 at 06:30 Phenytoin (Dilantin) 300 mg HS PO Last administered on 08/25/16 20:55; Admin Dose 300 MG; Start 08/15/16 at 21:00 Ranolazine (Ranexa) 1,000 mg Q12 PO Last administered on 08/26/16 08:58; Admin Dose 1,000 MG; Start 08/15/16 at 10:00 Ondansetron HCl (Zofran Inj) 4 mg Q6H PRN IV NAUSEA AND/OR VOMITING; Start at 06:30 Acetaminophen (Tylenol Liquid) 650 mg Q6H PRN PO PAIN LEVEL 1-3 OR FEVER; Start 08/15/16 at 06:30 Zolpidem Tartrate (Ambien) 5 mg QHS PRN PO INSOMNIA Last administered on 23:02; Admin Dose 5 MG; Start 08/15/16 at 06:30 Docusate Sodium (Colace) 100 mg Q12H PRN PO CONSTIPATION Last administered on 20:01; Admin Dose 100 MG; Start 08/15/16 at 06:30 Magnesium Hydroxide (Milk Of Mag) 30 ml DAILY PRN PO CONSTIPATION Last administered on 08/20/16 12:52; Admin Dose 30 ML; Start 08/15/16 at 06:30 Pantoprazole (Protonix Tab) 40 mg DAILY@06 PO Last administered on 08/26/16 06 :25; Admin Dose 40 MG; Start 08/16/16 at 06:00 Enoxaparin Sodium (Lovenox) 40 mg DAILY SC Last administered on 08/26/16 09:04 ; Admin Dose 40 MG; Start 08/15/16 at 09:00 Insulin Glargine (Lantus) 15 unit DAILY@20 SC Last administered on 08/25/16 21 :01; Admin Dose 15 UNIT; Start 08/15/16 at 20:00 Miscellaneous Information 1 ea NOTE XX ; Start 08/15/16 at 07:30 Glucose (Glutose) 15 gm Q15M PRN PO DECREASED GLUCOSE; Start 08/15/16 at 07:30 Glucose (Glutose) 22.5 gm Q15M PRN PO DECREASED GLUCOSE; Start 08/15/16 at 07: 30 Dextrose (D50w Syringe) 25 ml Q15M PRN IV DECREASED GLUCOSE; Start 08/15/16 at 07:30 Dextrose (D50w Syringe) 50 ml Q15M PRN IV DECREASED GLUCOSE; Start 08/15/16 at 07:30 Glucagon (Glucagen) 1 mg Q15M PRN IM DECREASED GLUCOSE; Start 08/15/16 at 07:30 Glucose (Glutose) 15 gm Q15M PRN BUCCAL DECREASED GLUCOSE; Start 08/15/16 at 07 :30 Morphine Sulfate (Ms Contin (Er)) 15 mg Q12 PO Last administered on 08/26/16 08:57; Admin Dose 15 MG; Start 08/15/16 at 11:30 Alprazolam (Xanax) 0.5 mg Q8 PO Last administered on 08/26/16 14:42; Admin Dose 0.5 MG; Start 08/15/16 at 22:00 Hydromorphone HCl (Dilaudid) 0.5 mg Q4H PRN IV PAIN Last administered on 14:43; Admin Dose 0.5 MG; Start 08/20/16 at 14:30 Isosorbide Dinitrate (Isordil) 30 mg TID PO Last administered on 08/26/16 12: 35; Admin Dose 30 MG; Start 08/21/16 at 21:00 CARLOS MARTINEZ MD Aug 26, 2016 17:32
--- NOTE | 2016-08-26 17:59 | CONS ---
Date/Time of Note Date/Time of Note DATE: 08/26/16 TIME: 17:56 Assessment/Plan Assessment/Plan Chief Complaint/Hosp Course IMPRESSION: 1. Angina refractory to medical therapy with known severe multivessel obstructive coronary artery disease, status post attempted SUPERVISOR WOUND with ongoing evaluation for cardiac transplant.-Negative troponin x 3 since admit 2. Coronary artery disease, status post coronary bypass grafting with all grafts occluded except for KNOTT to LAD with thereafter diffuse disease of the KNOTT, status post recent percutaneous transluminal coronary angioplasty to apical LAD. 3. Cardiomyopathy with severely depressed left ventricular ejection fraction approximately 15% by outside hospital echocardiogram at [facility] 07/31/2016. 4. History of automatic implantable cardioverter-defibrillator. 5. History of a percutaneous transluminal coronary angioplasty and stent placement prior to obtuse marginal 11/2014, now most recently PTCA alone to apical LAD at [facility] in last 2-3 weeks without sig change in sx 6. Hypertension, under reasonable control. 7. Dyslipidemia. 8. Possible development of vascular dementia. 9. Diabetes mellitus. 10. Seizure disorder. 11.Carotid stenosis 12.Encephalopathy 14. Anemia 15. Lower extremity weakness-working with PT and ongoing neuro eval Recc: -Tele -serial ecg's -Continue current BB/CCB/ranexa/oral nitrates -Continue losartan afterload reduction -Continue lasix diuresis -Continue statin -Ongoing neuro eval -Pain control -GI eval/virtual colonscopy as outpatient per GI -Ongoing PT eval and treament Problems: Consultation Date/Type/Reason Admit Date/Time Aug 15, 2016 at 06:28 Initial Consult Date 08/15/2016 Type of Consultation: Cardiology Reason for Consultation angina/CHF Referring Provider: CARLOS MARTINEZ MD Exam/Review of Systems Vital Signs Vitals Vital Signs Date Time Temp Pulse Resp B/P Pulse Ox O2 Delivery O2 Flow Rate FiO2 08/26/16 16:43 98.5 60 20 112/64 98 08/26/16 06:33 Nasal Cannula 2.0 Intake and Output 08/25/16 08/25/16 08/26/16 15:00 23:00 07:00 Intake Total 900 ml Output Total 1000 ml Balance -100 ml Exam Review of Systems: CONSTITUTIONAL: No fevers, chills. PULMONARY: No sob CARDIOVASCULAR: C/O ongoing chest pain GASTROINTESTINAL: No nausea/vomiting. GENITOURINARY: No hematuria/dysuria. MUSCULOSKELETAL: No myagias/arthalgias. PSYCHIATRIC: The patient denies depression. NEUROLOGIC: lethargic Constitutional: alert Psych: no complaints Head: normocephalic ENMT: mucosa pink and moist Neck: jvd (9 cm water), supple Respiratory: diminished breath sounds (at bases/B) Cardiovascular: regular rate and rhythm Gastrointestinal: non-tender, soft Musculoskeletal: muscle tone (normal) Extremities: edema (none) Neurological: lethargic Results Results 24 hrs Laboratory Tests Test 08/25/16 20:22 08/26/16 08:17 08/26/16 11:58 08/26/16 16:49 Bedside Glucose 191 185 208 292 H Medications Medications Current Medications Nitroglycerin/ Dextrose (Nitroglycerin 50 Mg/D5W (Pmx)) 250 ml @ 0 mls/hr TITRATE IV Last administered on 08/15/16 02:39; Admin Dose 1.5 MLS/HR; Start 08/15/16 at 02:30 Amlodipine Besylate (Norvasc) 5 mg DAILY PO Last administered on 08/26/16 09: 01; Admin Dose 5 MG; Start 08/15/16 at 09:00 Aspirin (Aspirin) 81 mg DAILY PO Last administered on 08/26/16 08:57; Admin Dose 81 MG; Start 08/15/16 at 09:00 Atorvastatin Calcium (Lipitor) 40 mg HS PO Last administered on 08/25/16 20:55 ; Admin Dose 40 MG; Start 08/15/16 at 21:00 Baclofen (Lioresal) 10 mg BID PO Last administered on 08/26/16 08:58; Admin Dose 10 MG; Start 08/15/16 at 09:00 Carvedilol (Coreg) 12.5 mg BID PO Last administered on 08/26/16 09:01; Admin Dose 12.5 MG; Start 08/15/16 at 09:00 Clopidogrel Bisulfate (plaVIX) 75 mg DAILY PO Last administered on 08/26/16 08 :57; Admin Dose 75 MG; Start 08/15/16 at 09:00 Cyanocobalamin (Vitamin B12) 1,000 mcg DAILY PO Last administered on 08/26/16 08:59; Admin Dose 1,000 MCG; Start 08/15/16 at 09:00 Gabapentin (Neurontin) 300 mg BID PO Last administered on 08/25/16 20:54; Admin Dose 300 MG; Start 08/15/16 at 09:00 Losartan Potassium (Cozaar) 50 mg Q12 PO Last administered on 08/26/16 09:00; Admin Dose 50 MG; Start 08/15/16 at 09:00 Meclizine HCl (Antivert) 25 mg Q8H PRN PO VERTIGO; Start 08/15/16 at 06:30 Nitroglycerin (Nitroglycerin (Sl Tab) 0.4 Mg) 1 tab Q5M PRN SL CHEST PAIN Last administered on 08/18/16 08:58; Admin Dose 1 TAB; Start 08/15/16 at 06:30 Phenytoin (Dilantin) 300 mg HS PO Last administered on 08/25/16 20:55; Admin Dose 300 MG; Start 08/15/16 at 21:00 Ranolazine (Ranexa) 1,000 mg Q12 PO Last administered on 08/26/16 08:58; Admin Dose 1,000 MG; Start 08/15/16 at 10:00 Ondansetron HCl (Zofran Inj) 4 mg Q6H PRN IV NAUSEA AND/OR VOMITING; Start at 06:30 Acetaminophen (Tylenol Liquid) 650 mg Q6H PRN PO PAIN LEVEL 1-3 OR FEVER; Start 08/15/16 at 06:30 Zolpidem Tartrate (Ambien) 5 mg QHS PRN PO INSOMNIA Last administered on 23:02; Admin Dose 5 MG; Start 08/15/16 at 06:30 Docusate Sodium (Colace) 100 mg Q12H PRN PO CONSTIPATION Last administered on 20:01; Admin Dose 100 MG; Start 08/15/16 at 06:30 Magnesium Hydroxide (Milk Of Mag) 30 ml DAILY PRN PO CONSTIPATION Last administered on 08/20/16 12:52; Admin Dose 30 ML; Start 08/15/16 at 06:30 Pantoprazole (Protonix Tab) 40 mg DAILY@06 PO Last administered on 08/26/16 06 :25; Admin Dose 40 MG; Start 08/16/16 at 06:00 Enoxaparin Sodium (Lovenox) 40 mg DAILY SC Last administered on 08/26/16 09:04 ; Admin Dose 40 MG; Start 08/15/16 at 09:00 Insulin Glargine (Lantus) 15 unit DAILY@20 SC Last administered on 08/25/16 21 :01; Admin Dose 15 UNIT; Start 08/15/16 at 20:00 Miscellaneous Information 1 ea NOTE XX ; Start 08/15/16 at 07:30 Glucose (Glutose) 15 gm Q15M PRN PO DECREASED GLUCOSE; Start 08/15/16 at 07:30 Glucose (Glutose) 22.5 gm Q15M PRN PO DECREASED GLUCOSE; Start 08/15/16 at 07: 30 Dextrose (D50w Syringe) 25 ml Q15M PRN IV DECREASED GLUCOSE; Start 08/15/16 at 07:30 Dextrose (D50w Syringe) 50 ml Q15M PRN IV DECREASED GLUCOSE; Start 08/15/16 at 07:30 Glucagon (Glucagen) 1 mg Q15M PRN IM DECREASED GLUCOSE; Start 08/15/16 at 07:30 Glucose (Glutose) 15 gm Q15M PRN BUCCAL DECREASED GLUCOSE; Start 08/15/16 at 07 :30 Morphine Sulfate (Ms Contin (Er)) 15 mg Q12 PO Last administered on 08/26/16 08:57; Admin Dose 15 MG; Start 08/15/16 at 11:30 Alprazolam (Xanax) 0.5 mg Q8 PO Last administered on 08/26/16 14:42; Admin Dose 0.5 MG; Start 08/15/16 at 22:00 Hydromorphone HCl (Dilaudid) 0.5 mg Q4H PRN IV PAIN Last administered on 14:43; Admin Dose 0.5 MG; Start 08/20/16 at 14:30 Isosorbide Dinitrate (Isordil) 30 mg TID PO Last administered on 08/26/16 12: 35; Admin Dose 30 MG; Start 08/21/16 at 21:00 NICHOL ACOSTA Aug 26, 2016 17:59
--- NOTE | 2016-08-26 18:28 | PN ---
DATE: 08/25/2016 SUBJECTIVE: Waiting for physical therapist to come and help him ambulate. PHYSICAL EXAMINATION: VITAL SIGNS: Stable. NECK: Supple. LUNGS: Clear. CARDIOVASCULAR: S1, S2 normal. EXTREMITIES: No edema. CENTRAL NERVOUS SYSTEM: The patient has deconditioning. IMPRESSION: 1. Coronary artery disease. 2. Carotid artery disease. 3. History of hypertension. 4. Diabetes mellitus. 5. Severe deconditioning, awaiting for correction facility placement, waiting for physical the rapy to come and help him ambulate. Dictated By: CARLOS MARTINEZ MD BS/NTS Conf#: [id number] DID#: [id number]
--- NOTE | 2016-08-26 19:59 | CONS ---
Date/Time of Note Date/Time of Note DATE: 08/26/16 TIME: 19:58 Assessment/Plan Assessment/Plan Additional Assessment/Plan Assessment/Plan Assessment/Plan Additional Assessment/Plan IMPRESSION: 1. Angina refractory to medical therapy . 2. Coronary artery disease, status post coronary bypass grafting with all grafts occluded except for KNOTT to LAD with thereafter diffuse disease of the KNOTT, status post recent percutaneous transluminal coronary angioplasty to apical LAD. 3. Cardiomyopathy with severely depressed left ventricular ejection fraction approximately 15% by outside hospital echocardiogram at [facility] 07/31/2016. 4. History of automatic implantable cardioverter-defibrillator. 5. History of a percutaneous transluminal coronary angioplasty and stent placement prior to obtuse marginal 11/2014, now most recently PTCA alone to apical LAD at [facility] in last 2-3 weeks without sig change in sx 6. Hypertension, under reasonable control. 7. Dyslipidemia. 8. Possible development of vascular dementia. 9. Diabetes mellitus. 10. Seizure disorder. 11.Carotid stenosis 12. Patient is muscle weakness and walks very slowly with a walker Plan Virtual colonoscopy as part of workup before heart transplantation Physical therapy to strengthen his muscle Consultation Date/Type/Reason Admit Date/Time Aug 15, 2016 at 06:28 Initial Consult Date 08/18/16 Type of Consultation: Cardiology Referring Provider: CARLOS MARTINEZ MD 24 HR Interval Summary Constitutional: no complaints Exam/Review of Systems Vital Signs Vitals Vital Signs Date Time Temp Pulse Resp B/P Pulse Ox O2 Delivery O2 Flow Rate FiO2 08/26/16 16:43 98.5 60 20 112/64 98 08/26/16 06:33 Nasal Cannula 2.0 Intake and Output 08/25/16 08/25/16 08/26/16 15:00 23:00 07:00 Intake Total 900 ml Output Total 1000 ml Balance -100 ml Exam Constitutional: alert, oriented, well developed Psych: nl mood/affect, no complaints Head: atraumatic, normocephalic Eyes: EOMI, PERRL, nl conjunctiva, nl lids, nl sclera ENMT: nl external ears & nose, nl lips & teeth, nl nasal mucosa & septum Neck: non-tender, supple Respiratory: clear to auscultation, normal air movement Cardiovascular: nl pulses, regular rate and rhythm Gastrointestinal: nl liver, spleen, non-tender, soft Musculoskeletal: nl extremities to inspection, nl gait and stance Extremities: normal pulses Neurological: REPLENISHMENT SPECIALIST II-XII intact, nl mental status, nl speech, nl strength Skin: nl turgor, No rash or lesions Lymph: nl lymph nodes Results Results 24 hrs Laboratory Tests Test 08/25/16 20:22 08/26/16 08:17 08/26/16 11:58 08/26/16 16:49 Bedside Glucose 191 185 208 292 H Medications Medications Current Medications Nitroglycerin/ Dextrose (Nitroglycerin 50 Mg/D5W (Pmx)) 250 ml @ 0 mls/hr TITRATE IV Last administered on 08/15/16 02:39; Admin Dose 1.5 MLS/HR; Start 08/15/16 at 02:30 Amlodipine Besylate (Norvasc) 5 mg DAILY PO Last administered on 08/26/16 09: 01; Admin Dose 5 MG; Start 08/15/16 at 09:00 Aspirin (Aspirin) 81 mg DAILY PO Last administered on 08/26/16 08:57; Admin Dose 81 MG; Start 08/15/16 at 09:00 Atorvastatin Calcium (Lipitor) 40 mg HS PO Last administered on 08/25/16 20:55 ; Admin Dose 40 MG; Start 08/15/16 at 21:00 Baclofen (Lioresal) 10 mg BID PO Last administered on 08/26/16 08:58; Admin Dose 10 MG; Start 08/15/16 at 09:00 Carvedilol (Coreg) 12.5 mg BID PO Last administered on 08/26/16 09:01; Admin Dose 12.5 MG; Start 08/15/16 at 09:00 Clopidogrel Bisulfate (plaVIX) 75 mg DAILY PO Last administered on 08/26/16 08 :57; Admin Dose 75 MG; Start 08/15/16 at 09:00 Cyanocobalamin (Vitamin B12) 1,000 mcg DAILY PO Last administered on 08/26/16 08:59; Admin Dose 1,000 MCG; Start 08/15/16 at 09:00 Gabapentin (Neurontin) 300 mg BID PO Last administered on 08/25/16 20:54; Admin Dose 300 MG; Start 08/15/16 at 09:00 Losartan Potassium (Cozaar) 50 mg Q12 PO Last administered on 08/26/16 09:00; Admin Dose 50 MG; Start 08/15/16 at 09:00 Meclizine HCl (Antivert) 25 mg Q8H PRN PO VERTIGO; Start 08/15/16 at 06:30 Nitroglycerin (Nitroglycerin (Sl Tab) 0.4 Mg) 1 tab Q5M PRN SL CHEST PAIN Last administered on 08/18/16 08:58; Admin Dose 1 TAB; Start 08/15/16 at 06:30 Phenytoin (Dilantin) 300 mg HS PO Last administered on 08/25/16 20:55; Admin Dose 300 MG; Start 08/15/16 at 21:00 Ranolazine (Ranexa) 1,000 mg Q12 PO Last administered on 08/26/16 08:58; Admin Dose 1,000 MG; Start 08/15/16 at 10:00 Ondansetron HCl (Zofran Inj) 4 mg Q6H PRN IV NAUSEA AND/OR VOMITING; Start at 06:30 Acetaminophen (Tylenol Liquid) 650 mg Q6H PRN PO PAIN LEVEL 1-3 OR FEVER; Start 08/15/16 at 06:30 Zolpidem Tartrate (Ambien) 5 mg QHS PRN PO INSOMNIA Last administered on 23:02; Admin Dose 5 MG; Start 08/15/16 at 06:30 Docusate Sodium (Colace) 100 mg Q12H PRN PO CONSTIPATION Last administered on 20:01; Admin Dose 100 MG; Start 08/15/16 at 06:30 Magnesium Hydroxide (Milk Of Mag) 30 ml DAILY PRN PO CONSTIPATION Last administered on 08/20/16 12:52; Admin Dose 30 ML; Start 08/15/16 at 06:30 Pantoprazole (Protonix Tab) 40 mg DAILY@06 PO Last administered on 08/26/16 06 :25; Admin Dose 40 MG; Start 08/16/16 at 06:00 Enoxaparin Sodium (Lovenox) 40 mg DAILY SC Last administered on 08/26/16 09:04 ; Admin Dose 40 MG; Start 08/15/16 at 09:00 Insulin Glargine (Lantus) 15 unit DAILY@20 SC Last administered on 08/25/16 21 :01; Admin Dose 15 UNIT; Start 08/15/16 at 20:00 Miscellaneous Information 1 ea NOTE XX ; Start 08/15/16 at 07:30 Glucose (Glutose) 15 gm Q15M PRN PO DECREASED GLUCOSE; Start 08/15/16 at 07:30 Glucose (Glutose) 22.5 gm Q15M PRN PO DECREASED GLUCOSE; Start 08/15/16 at 07: 30 Dextrose (D50w Syringe) 25 ml Q15M PRN IV DECREASED GLUCOSE; Start 08/15/16 at 07:30 Dextrose (D50w Syringe) 50 ml Q15M PRN IV DECREASED GLUCOSE; Start 08/15/16 at 07:30 Glucagon (Glucagen) 1 mg Q15M PRN IM DECREASED GLUCOSE; Start 08/15/16 at 07:30 Glucose (Glutose) 15 gm Q15M PRN BUCCAL DECREASED GLUCOSE; Start 08/15/16 at 07 :30 Morphine Sulfate (Ms Contin (Er)) 15 mg Q12 PO Last administered on 08/26/16 08:57; Admin Dose 15 MG; Start 08/15/16 at 11:30 Alprazolam (Xanax) 0.5 mg Q8 PO Last administered on 08/26/16 14:42; Admin Dose 0.5 MG; Start 08/15/16 at 22:00 Hydromorphone HCl (Dilaudid) 0.5 mg Q4H PRN IV PAIN Last administered on 18:44; Admin Dose 0.5 MG; Start 08/20/16 at 14:30 Isosorbide Dinitrate (Isordil) 30 mg TID PO Last administered on 08/26/16 12: 35; Admin Dose 30 MG; Start 08/21/16 at 21:00 CHANDRAKANT LOPEZ MD Aug 26, 2016 19:59
[2016-08-26] MEDS: ATORVASTATIN 40 MG TAB PO SCH (21:10)
[2016-08-26] MEDS: PHENYTOIN 100 MG CAP PO SCH (21:11)
[2016-08-26] MEDS: INSULIN GLARGINE [LANtus] 3 ML PEN SC SCH (21:15)
[2016-08-27] VITALS (12 sets, daily range): BP systolic 111–148; BP diastolic 59–69; PULSE 60; RESP 19–20
[2016-08-27] MEDS: HYDROmorphONE 1 MG/ML SYG IV PRN ×5 (02:26→21:04)
[2016-08-27] MEDS: PANTOPRAZOLE (EC) 40 MG TAB PO SCH (06:21)
[2016-08-27] MEDS: FUROSEMIDE 40 MG INJ IV SCH ×2 (06:21→17:37)
[2016-08-27] MEDS: ALPRAZOLAM 0.25 MG TAB PO SCH ×3 (06:22→22:10)
[2016-08-27] MEDS: CLOPIDOGREL 75 MG TAB PO SCH (08:41)
[2016-08-27] MEDS: ASPIRIN 81 MG TAB PO SCH (08:41)
[2016-08-27] MEDS: ISOSORBIDE DINITRATE 10 MG TAB PO SCH ×3 (08:44→20:46)
[2016-08-27] MEDS: morphine (ER) 15 MG TAB PO SCH ×2 (08:45→20:45)
[2016-08-27] MEDS: CYANOCOBALAMIN 500 MCG TAB PO SCH (08:46)
[2016-08-27] MEDS: BACLOFEN 10 MG TAB PO SCH ×2 (08:47→20:52)
[2016-08-27] MEDS: GABAPENTIN 300 MG CAP PO SCH ×2 (08:47→20:44)
[2016-08-27] MEDS: RANOLAZINE (SR) 500 MG TAB PO SCH ×2 (08:47→21:02)
[2016-08-27] MEDS: AMLODIPINE 5 MG TAB PO SCH (08:49)
[2016-08-27] MEDS: LOSARTAN 50 MG TAB PO SCH ×2 (08:50→20:46)
[2016-08-27] MEDS: INSULIN ASPART [NOVOLOG] 3 ML PEN SC SCH ×4 (08:51→21:24)
[2016-08-27] MEDS: ENOXAPARIN 40 MG/0.4 ML SYG SC SCH (08:52)
--- NOTE | 2016-08-27 18:55 | PN ---
Date/Time of Note Date/Time of Note DATE: 08/27/16 TIME: 18:54 Assessment/Plan VTE Prophylaxis VTE Prophylaxis Intervention: other Lines/Catheters IV [facility] Urinary Cath still in place: No Assessment/Plan Chief Complaint/Hosp Course IMPRESSION 1. Patient has carotid artery disease. 2. Coronary artery disease. 3. History of coronary artery bypass graft. 4. Atherosclerotic heart disease. 5. Angina. 6. Diabetes mellitus. 7. Dyslipidemia. 8. History of stent placement. 9. History of coronary angiogram and multiple Lexiscans. plan per neuro and vascular PT/OT SNF dec pain meds gi consult for cardiac tranplant work up out pt need rehab snf Problems: Subjective 24 Hr Interval Summary Constitutional: no complaints Eyes: no complaints ENT: no complaints Respiratory: no complaints Cardiovascular: no complaints Exam/Review of Systems Vital Signs Vitals Vital Signs Date Time Temp Pulse Resp B/P Pulse Ox O2 Delivery O2 Flow Rate FiO2 08/27/16 16:21 60 08/27/16 15:41 98.0 20 116/59 100 08/27/16 06:20 Room Air 08/26/16 06:33 2.0 Intake and Output 08/26/16 08/26/16 08/27/16 15:00 23:00 07:00 Intake Total 1100 ml Output Total 900 ml Balance 200 ml Exam Neck: supple Respiratory: clear to auscultation Cardiovascular: regular rate and rhythm Gastrointestinal: soft Musculoskeletal: nl extremities to inspection Extremities: normal pulses Results Results 24 hrs Laboratory Tests Test 08/26/16 20:56 08/27/16 08:15 08/27/16 11:45 Bedside Glucose 244 H 196 157 Medications Medications Current Medications Nitroglycerin/ Dextrose (Nitroglycerin 50 Mg/D5W (Pmx)) 250 ml @ 0 mls/hr TITRATE IV Last administered on 08/15/16 02:39; Admin Dose 1.5 MLS/HR; Start 08/15/16 at 02:30 Amlodipine Besylate (Norvasc) 5 mg DAILY PO Last administered on 08/27/16 08: 49; Admin Dose 5 MG; Start 08/15/16 at 09:00 Aspirin (Aspirin) 81 mg DAILY PO Last administered on 08/27/16 08:41; Admin Dose 81 MG; Start 08/15/16 at 09:00 Atorvastatin Calcium (Lipitor) 40 mg HS PO Last administered on 08/26/16 21:10 ; Admin Dose 40 MG; Start 08/15/16 at 21:00 Baclofen (Lioresal) 10 mg BID PO Last administered on 08/27/16 08:47; Admin Dose 10 MG; Start 08/15/16 at 09:00 Carvedilol (Coreg) 12.5 mg BID PO Last administered on 08/27/16 08:44; Admin Dose 12.5 MG; Start 08/15/16 at 09:00 Clopidogrel Bisulfate (plaVIX) 75 mg DAILY PO Last administered on 08/27/16 08 :41; Admin Dose 75 MG; Start 08/15/16 at 09:00 Cyanocobalamin (Vitamin B12) 1,000 mcg DAILY PO Last administered on 08/27/16 08:46; Admin Dose 1,000 MCG; Start 08/15/16 at 09:00 Gabapentin (Neurontin) 300 mg BID PO Last administered on 08/27/16 08:47; Admin Dose 300 MG; Start 08/15/16 at 09:00 Losartan Potassium (Cozaar) 50 mg Q12 PO Last administered on 08/27/16 08:50; Admin Dose 50 MG; Start 08/15/16 at 09:00 Meclizine HCl (Antivert) 25 mg Q8H PRN PO VERTIGO; Start 08/15/16 at 06:30 Nitroglycerin (Nitroglycerin (Sl Tab) 0.4 Mg) 1 tab Q5M PRN SL CHEST PAIN Last administered on 08/18/16 08:58; Admin Dose 1 TAB; Start 08/15/16 at 06:30 Phenytoin (Dilantin) 300 mg HS PO Last administered on 08/26/16 21:11; Admin Dose 300 MG; Start 08/15/16 at 21:00 Ranolazine (Ranexa) 1,000 mg Q12 PO Last administered on 08/27/16 08:47; Admin Dose 1,000 MG; Start 08/15/16 at 10:00 Ondansetron HCl (Zofran Inj) 4 mg Q6H PRN IV NAUSEA AND/OR VOMITING; Start at 06:30 Acetaminophen (Tylenol Liquid) 650 mg Q6H PRN PO PAIN LEVEL 1-3 OR FEVER; Start 08/15/16 at 06:30 Zolpidem Tartrate (Ambien) 5 mg QHS PRN PO INSOMNIA Last administered on 23:02; Admin Dose 5 MG; Start 08/15/16 at 06:30 Docusate Sodium (Colace) 100 mg Q12H PRN PO CONSTIPATION Last administered on 20:01; Admin Dose 100 MG; Start 08/15/16 at 06:30 Magnesium Hydroxide (Milk Of Mag) 30 ml DAILY PRN PO CONSTIPATION Last administered on 08/20/16 12:52; Admin Dose 30 ML; Start 08/15/16 at 06:30 Pantoprazole (Protonix Tab) 40 mg DAILY@06 PO Last administered on 08/27/16 06 :21; Admin Dose 40 MG; Start 08/16/16 at 06:00 Enoxaparin Sodium (Lovenox) 40 mg DAILY SC Last administered on 08/27/16 08:52 ; Admin Dose 40 MG; Start 08/15/16 at 09:00 Insulin Glargine (Lantus) 15 unit DAILY@20 SC Last administered on 08/26/16 21 :15; Admin Dose 15 UNIT; Start 08/15/16 at 20:00 Miscellaneous Information 1 ea NOTE XX ; Start 08/15/16 at 07:30 Glucose (Glutose) 15 gm Q15M PRN PO DECREASED GLUCOSE; Start 08/15/16 at 07:30 Glucose (Glutose) 22.5 gm Q15M PRN PO DECREASED GLUCOSE; Start 08/15/16 at 07: 30 Dextrose (D50w Syringe) 25 ml Q15M PRN IV DECREASED GLUCOSE; Start 08/15/16 at 07:30 Dextrose (D50w Syringe) 50 ml Q15M PRN IV DECREASED GLUCOSE; Start 08/15/16 at 07:30 Glucagon (Glucagen) 1 mg Q15M PRN IM DECREASED GLUCOSE; Start 08/15/16 at 07:30 Glucose (Glutose) 15 gm Q15M PRN BUCCAL DECREASED GLUCOSE; Start 08/15/16 at 07 :30 Morphine Sulfate (Ms Contin (Er)) 15 mg Q12 PO Last administered on 08/27/16 08:45; Admin Dose 15 MG; Start 08/15/16 at 11:30 Alprazolam (Xanax) 0.5 mg Q8 PO Last administered on 08/27/16 13:45; Admin Dose 0.5 MG; Start 08/15/16 at 22:00 Hydromorphone HCl (Dilaudid) 0.5 mg Q4H PRN IV PAIN Last administered on 16:48; Admin Dose 0.5 MG; Start 08/20/16 at 14:30 Isosorbide Dinitrate (Isordil) 30 mg TID PO Last administered on 08/27/16 13: 46; Admin Dose 30 MG; Start 08/21/16 at 21:00 CARLOS MARTINEZ MD Aug 27, 2016 18:55
[2016-08-27] MEDS: ATORVASTATIN 40 MG TAB PO SCH (20:44)
[2016-08-27] MEDS: INSULIN GLARGINE [LANtus] 3 ML PEN SC SCH (20:50)
[2016-08-27] MEDS: PHENYTOIN 100 MG CAP PO SCH (21:03)
--- NOTE | 2016-08-27 22:57 | CONS ---
Date/Time of Note Date/Time of Note DATE: 08/27/16 TIME: 22:55 Assessment/Plan Assessment/Plan Additional Assessment/Plan Additional Assessment/Plan IMPRESSION: 1. Angina refractory to medical therapy . 2. Coronary artery disease, status post coronary bypass grafting with all grafts occluded except for KNOTT to LAD with thereafter diffuse disease of the KNOTT, status post recent percutaneous transluminal coronary angioplasty to apical LAD. 3. Cardiomyopathy with severely depressed left ventricular ejection fraction approximately 15% by outside hospital echocardiogram at [facility] 07/31/2016. 4. History of automatic implantable cardioverter-defibrillator. 5. History of a percutaneous transluminal coronary angioplasty and stent placement prior to obtuse marginal 11/2014, now most recently PTCA alone to apical LAD at [facility] in last 2-3 weeks without sig change in sx 6. Hypertension, under reasonable control. 7. Dyslipidemia. 8. Possible development of vascular dementia. 9. Diabetes mellitus. 10. Seizure disorder. 11.Carotid stenosis 12. Patient is muscle weakness and walks very slowly with a walker Plan Virtual colonoscopy as part of workup before heart transplantation Physical therapy to strengthen his muscle discussed with pt.in details Consultation Date/Type/Reason Admit Date/Time Aug 15, 2016 at 06:28 Initial Consult Date 08/18/16 Type of Consultation: Cardiology Referring Provider: CARLOS MARTINEZ MD 24 HR Interval Summary Constitutional: improved Exam/Review of Systems Vital Signs Vitals Vital Signs Date Time Temp Pulse Resp B/P Pulse Ox O2 Delivery O2 Flow Rate FiO2 08/27/16 20:36 60 08/27/16 20:23 98.3 20 126/62 96 08/27/16 06:20 Room Air 08/26/16 06:33 2.0 Intake and Output 08/26/16 08/26/16 08/27/16 15:00 23:00 07:00 Intake Total 1100 ml Output Total 900 ml Balance 200 ml Exam Constitutional: alert, oriented, well developed Psych: nl mood/affect, no complaints Head: atraumatic, normocephalic Eyes: EOMI, PERRL, nl conjunctiva, nl lids, nl sclera ENMT: nl external ears & nose, nl lips & teeth, nl nasal mucosa & septum Neck: non-tender, supple Respiratory: clear to auscultation, normal air movement Cardiovascular: nl pulses, regular rate and rhythm Gastrointestinal: nl liver, spleen, non-tender, soft Musculoskeletal: nl extremities to inspection, nl gait and stance Extremities: normal pulses Neurological: FILM WAXER II-XII intact, nl mental status, nl speech, nl strength Skin: nl turgor, No rash or lesions Lymph: nl lymph nodes Results Results 24 hrs Laboratory Tests Test 08/27/16 08:15 08/27/16 11:45 08/27/16 21:08 Bedside Glucose 196 157 211 Medications Medications Current Medications Nitroglycerin/ Dextrose (Nitroglycerin 50 Mg/D5W (Pmx)) 250 ml @ 0 mls/hr TITRATE IV Last administered on 08/15/16 02:39; Admin Dose 1.5 MLS/HR; Start 08/15/16 at 02:30 Amlodipine Besylate (Norvasc) 5 mg DAILY PO Last administered on 08/27/16 08: 49; Admin Dose 5 MG; Start 08/15/16 at 09:00 Aspirin (Aspirin) 81 mg DAILY PO Last administered on 08/27/16 08:41; Admin Dose 81 MG; Start 08/15/16 at 09:00 Atorvastatin Calcium (Lipitor) 40 mg HS PO Last administered on 08/27/16 20:44 ; Admin Dose 40 MG; Start 08/15/16 at 21:00 Baclofen (Lioresal) 10 mg BID PO Last administered on 08/27/16 20:52; Admin Dose 10 MG; Start 08/15/16 at 09:00 Carvedilol (Coreg) 12.5 mg BID PO Last administered on 08/27/16 20:47; Admin Dose 12.5 MG; Start 08/15/16 at 09:00 Clopidogrel Bisulfate (plaVIX) 75 mg DAILY PO Last administered on 08/27/16 08 :41; Admin Dose 75 MG; Start 08/15/16 at 09:00 Cyanocobalamin (Vitamin B12) 1,000 mcg DAILY PO Last administered on 08/27/16 08:46; Admin Dose 1,000 MCG; Start 08/15/16 at 09:00 Gabapentin (Neurontin) 300 mg BID PO Last administered on 08/27/16 20:44; Admin Dose 300 MG; Start 08/15/16 at 09:00 Losartan Potassium (Cozaar) 50 mg Q12 PO Last administered on 08/27/16 20:46; Admin Dose 50 MG; Start 08/15/16 at 09:00 Meclizine HCl (Antivert) 25 mg Q8H PRN PO VERTIGO; Start 08/15/16 at 06:30 Nitroglycerin (Nitroglycerin (Sl Tab) 0.4 Mg) 1 tab Q5M PRN SL CHEST PAIN Last administered on 08/18/16 08:58; Admin Dose 1 TAB; Start 08/15/16 at 06:30 Phenytoin (Dilantin) 300 mg HS PO Last administered on 08/27/16 21:03; Admin Dose 300 MG; Start 08/15/16 at 21:00 Ranolazine (Ranexa) 1,000 mg Q12 PO Last administered on 08/27/16 21:02; Admin Dose 1,000 MG; Start 08/15/16 at 10:00 Ondansetron HCl (Zofran Inj) 4 mg Q6H PRN IV NAUSEA AND/OR VOMITING; Start at 06:30 Acetaminophen (Tylenol Liquid) 650 mg Q6H PRN PO PAIN LEVEL 1-3 OR FEVER; Start 08/15/16 at 06:30 Zolpidem Tartrate (Ambien) 5 mg QHS PRN PO INSOMNIA Last administered on 23:02; Admin Dose 5 MG; Start 08/15/16 at 06:30 Docusate Sodium (Colace) 100 mg Q12H PRN PO CONSTIPATION Last administered on 20:01; Admin Dose 100 MG; Start 08/15/16 at 06:30 Magnesium Hydroxide (Milk Of Mag) 30 ml DAILY PRN PO CONSTIPATION Last administered on 08/20/16 12:52; Admin Dose 30 ML; Start 08/15/16 at 06:30 Pantoprazole (Protonix Tab) 40 mg DAILY@06 PO Last administered on 08/27/16 06 :21; Admin Dose 40 MG; Start 08/16/16 at 06:00 Enoxaparin Sodium (Lovenox) 40 mg DAILY SC Last administered on 08/27/16 08:52 ; Admin Dose 40 MG; Start 08/15/16 at 09:00 Insulin Glargine (Lantus) 15 unit DAILY@20 SC Last administered on 08/27/16 20 :50; Admin Dose 15 UNIT; Start 08/15/16 at 20:00 Miscellaneous Information 1 ea NOTE XX ; Start 08/15/16 at 07:30 Glucose (Glutose) 15 gm Q15M PRN PO DECREASED GLUCOSE; Start 08/15/16 at 07:30 Glucose (Glutose) 22.5 gm Q15M PRN PO DECREASED GLUCOSE; Start 08/15/16 at 07: 30 Dextrose (D50w Syringe) 25 ml Q15M PRN IV DECREASED GLUCOSE; Start 08/15/16 at 07:30 Dextrose (D50w Syringe) 50 ml Q15M PRN IV DECREASED GLUCOSE; Start 08/15/16 at 07:30 Glucagon (Glucagen) 1 mg Q15M PRN IM DECREASED GLUCOSE; Start 08/15/16 at 07:30 Glucose (Glutose) 15 gm Q15M PRN BUCCAL DECREASED GLUCOSE; Start 08/15/16 at 07 :30 Morphine Sulfate (Ms Contin (Er)) 15 mg Q12 PO Last administered on 08/27/16 20:45; Admin Dose 15 MG; Start 08/15/16 at 11:30 Alprazolam (Xanax) 0.5 mg Q8 PO Last administered on 08/27/16 22:10; Admin Dose 0.5 MG; Start 08/15/16 at 22:00 Hydromorphone HCl (Dilaudid) 0.5 mg Q4H PRN IV PAIN Last administered on 21:04; Admin Dose 0.5 MG; Start 08/20/16 at 14:30 Isosorbide Dinitrate (Isordil) 30 mg TID PO Last administered on 08/27/16 20: 46; Admin Dose 30 MG; Start 08/21/16 at 21:00 CHANDRAKANT LOPEZ MD Aug 27, 2016 22:56
[2016-08-28] VITALS (10 sets, daily range): BP systolic 105–126; BP diastolic 54–71; PULSE 60; RESP 17–20
[2016-08-28] MEDS: HYDROmorphONE 1 MG/ML SYG IV PRN ×4 (03:53→17:01)
[2016-08-28] MEDS: FUROSEMIDE 40 MG INJ IV SCH (05:53)
[2016-08-28] MEDS: PANTOPRAZOLE (EC) 40 MG TAB PO SCH (05:53)
[2016-08-28] MEDS: ALPRAZOLAM 0.25 MG TAB PO SCH ×2 (05:53→13:13)
[2016-08-28] MEDS: INSULIN ASPART [NOVOLOG] 3 ML PEN SC SCH ×3 (07:58→17:10)
[2016-08-28] MEDS: RANOLAZINE (SR) 500 MG TAB PO SCH (08:10)
[2016-08-28] MEDS: ASPIRIN 81 MG TAB PO SCH (08:10)
[2016-08-28] MEDS: ISOSORBIDE DINITRATE 10 MG TAB PO SCH ×2 (08:11→13:13)
[2016-08-28] MEDS: AMLODIPINE 5 MG TAB PO SCH (08:12)
[2016-08-28] MEDS: GABAPENTIN 300 MG CAP PO SCH (08:12)
[2016-08-28] MEDS: CYANOCOBALAMIN 500 MCG TAB PO SCH (08:12)
[2016-08-28] MEDS: BACLOFEN 10 MG TAB PO SCH (08:12)
[2016-08-28] MEDS: CLOPIDOGREL 75 MG TAB PO SCH (08:12)
[2016-08-28] MEDS: LOSARTAN 50 MG TAB PO SCH (08:13)
[2016-08-28] MEDS: morphine (ER) 15 MG TAB PO SCH (08:13)
[2016-08-28] MEDS: ENOXAPARIN 40 MG/0.4 ML SYG SC SCH (08:15)
--- NOTE | 2016-08-28 17:14 | CONS ---
Date/Time of Note Date/Time of Note DATE: 08/28/16 TIME: 17:12 Assessment/Plan Assessment/Plan Chief Complaint/Hosp Course IMPRESSION: 1. Angina refractory to medical therapy with known severe multivessel obstructive coronary artery disease, status post attempted HYDRANT SETTER with ongoing evaluation for cardiac transplant.-Negative troponin x 3 since admit 2. Coronary artery disease, status post coronary bypass grafting with all grafts occluded except for KNOTT to LAD with thereafter diffuse disease of the KNOTT, status post recent percutaneous transluminal coronary angioplasty to apical LAD. 3. Cardiomyopathy with severely depressed left ventricular ejection fraction approximately 15% by outside hospital echocardiogram at [facility] 07/31/2016. 4. History of automatic implantable cardioverter-defibrillator. 5. History of a percutaneous transluminal coronary angioplasty and stent placement prior to obtuse marginal 11/2014, now most recently PTCA alone to apical LAD at [facility] in last 2-3 weeks without sig change in sx 6. Hypertension, under reasonable control. 7. Dyslipidemia. 8. Possible development of vascular dementia. 9. Diabetes mellitus. 10. Seizure disorder. 11.Carotid stenosis 12.Encephalopathy 14. Anemia 15. Lower extremity weakness-working with PT and ongoing neuro eval Recc: -Tele -serial ecg's -Continue current BB/CCB/ranexa/oral nitrates -Continue losartan afterload reduction -Continue lasix diuresis -Continue statin -Ongoing neuro eval -Pain control -GI eval/virtual colonscopy as outpatient per GI -Ongoing PT eval and treament with possible transfer to rehab today Problems: Consultation Date/Type/Reason Admit Date/Time Aug 15, 2016 at 06:28 Initial Consult Date 08/15/2016 Type of Consultation: Cardiology Reason for Consultation CHF/cardiomyopathy/angina Referring Provider: CARLOS MARTINEZ MD Exam/Review of Systems Vital Signs Vitals Vital Signs Date Time Temp Pulse Resp B/P Pulse Ox O2 Delivery O2 Flow Rate FiO2 08/28/16 16:22 60 08/28/16 16:13 98.1 17 105/54 99 08/27/16 06:20 Room Air 08/26/16 06:33 2.0 Intake and Output 08/27/16 08/27/16 08/28/16 15:00 23:00 07:00 Intake Total 400 ml 700 ml Output Total 1000 ml 800 ml Balance -600 ml -100 ml Exam Review of Systems: CONSTITUTIONAL: No fevers, chills. PULMONARY: No sob CARDIOVASCULAR: Intermittent chest pain GASTROINTESTINAL: No nausea/vomiting. GENITOURINARY: No hematuria/dysuria. MUSCULOSKELETAL: No myagias/arthalgias. PSYCHIATRIC: The patient denies depression. NEUROLOGIC: lethargic Constitutional: alert Psych: no complaints Head: normocephalic Neck: jvd (9 cm water), supple Respiratory: clear to auscultation Cardiovascular: regular rate and rhythm Gastrointestinal: non-tender, soft Extremities: edema (none) Neurological: lethargic Results Results 24 hrs Laboratory Tests Test 08/27/16 21:08 08/28/16 02:01 08/28/16 07:34 08/28/16 11:34 Bedside Glucose 211 148 117 195 Medications Medications Current Medications Nitroglycerin/ Dextrose (Nitroglycerin 50 Mg/D5W (Pmx)) 250 ml @ 0 mls/hr TITRATE IV Last administered on 08/15/16 02:39; Admin Dose 1.5 MLS/HR; Start 08/15/16 at 02:30 Amlodipine Besylate (Norvasc) 5 mg DAILY PO Last administered on 08/28/16 08: 12; Admin Dose 5 MG; Start 08/15/16 at 09:00 Aspirin (Aspirin) 81 mg DAILY PO Last administered on 08/28/16 08:10; Admin Dose 81 MG; Start 08/15/16 at 09:00 Atorvastatin Calcium (Lipitor) 40 mg HS PO Last administered on 08/27/16 20:44 ; Admin Dose 40 MG; Start 08/15/16 at 21:00 Baclofen (Lioresal) 10 mg BID PO Last administered on 08/28/16 08:12; Admin Dose 10 MG; Start 08/15/16 at 09:00 Carvedilol (Coreg) 12.5 mg BID PO Last administered on 08/28/16 08:13; Admin Dose 12.5 MG; Start 08/15/16 at 09:00 Clopidogrel Bisulfate (plaVIX) 75 mg DAILY PO Last administered on 08/28/16 08 :12; Admin Dose 75 MG; Start 08/15/16 at 09:00 Cyanocobalamin (Vitamin B12) 1,000 mcg DAILY PO Last administered on 08/28/16 08:12; Admin Dose 1,000 MCG; Start 08/15/16 at 09:00 Gabapentin (Neurontin) 300 mg BID PO Last administered on 08/28/16 08:12; Admin Dose 300 MG; Start 08/15/16 at 09:00 Losartan Potassium (Cozaar) 50 mg Q12 PO Last administered on 08/28/16 08:13; Admin Dose 50 MG; Start 08/15/16 at 09:00 Meclizine HCl (Antivert) 25 mg Q8H PRN PO VERTIGO; Start 08/15/16 at 06:30 Nitroglycerin (Nitroglycerin (Sl Tab) 0.4 Mg) 1 tab Q5M PRN SL CHEST PAIN Last administered on 08/18/16 08:58; Admin Dose 1 TAB; Start 08/15/16 at 06:30 Phenytoin (Dilantin) 300 mg HS PO Last administered on 08/27/16 21:03; Admin Dose 300 MG; Start 08/15/16 at 21:00 Ranolazine (Ranexa) 1,000 mg Q12 PO Last administered on 08/28/16 08:10; Admin Dose 1,000 MG; Start 08/15/16 at 10:00 Ondansetron HCl (Zofran Inj) 4 mg Q6H PRN IV NAUSEA AND/OR VOMITING; Start at 06:30 Acetaminophen (Tylenol Liquid) 650 mg Q6H PRN PO PAIN LEVEL 1-3 OR FEVER; Start 08/15/16 at 06:30 Zolpidem Tartrate (Ambien) 5 mg QHS PRN PO INSOMNIA Last administered on 23:02; Admin Dose 5 MG; Start 08/15/16 at 06:30 Docusate Sodium (Colace) 100 mg Q12H PRN PO CONSTIPATION Last administered on 20:01; Admin Dose 100 MG; Start 08/15/16 at 06:30 Magnesium Hydroxide (Milk Of Mag) 30 ml DAILY PRN PO CONSTIPATION Last administered on 08/20/16 12:52; Admin Dose 30 ML; Start 08/15/16 at 06:30 Pantoprazole (Protonix Tab) 40 mg DAILY@06 PO Last administered on 08/28/16 05 :53; Admin Dose 40 MG; Start 08/16/16 at 06:00 Enoxaparin Sodium (Lovenox) 40 mg DAILY SC Last administered on 08/28/16 08:15 ; Admin Dose 40 MG; Start 08/15/16 at 09:00 Insulin Glargine (Lantus) 15 unit DAILY@20 SC Last administered on 08/27/16 20 :50; Admin Dose 15 UNIT; Start 08/15/16 at 20:00 Miscellaneous Information 1 ea NOTE XX ; Start 08/15/16 at 07:30 Glucose (Glutose) 15 gm Q15M PRN PO DECREASED GLUCOSE; Start 08/15/16 at 07:30 Glucose (Glutose) 22.5 gm Q15M PRN PO DECREASED GLUCOSE; Start 08/15/16 at 07: 30 Dextrose (D50w Syringe) 25 ml Q15M PRN IV DECREASED GLUCOSE; Start 08/15/16 at 07:30 Dextrose (D50w Syringe) 50 ml Q15M PRN IV DECREASED GLUCOSE; Start 08/15/16 at 07:30 Glucagon (Glucagen) 1 mg Q15M PRN IM DECREASED GLUCOSE; Start 08/15/16 at 07:30 Glucose (Glutose) 15 gm Q15M PRN BUCCAL DECREASED GLUCOSE; Start 08/15/16 at 07 :30 Morphine Sulfate (Ms Contin (Er)) 15 mg Q12 PO Last administered on 08/28/16 08:13; Admin Dose 15 MG; Start 08/15/16 at 11:30 Alprazolam (Xanax) 0.5 mg Q8 PO Last administered on 08/28/16 13:13; Admin Dose 0.5 MG; Start 08/15/16 at 22:00 Hydromorphone HCl (Dilaudid) 0.5 mg Q4H PRN IV PAIN Last administered on 17:01; Admin Dose 0.5 MG; Start 08/20/16 at 14:30 Isosorbide Dinitrate (Isordil) 30 mg TID PO Last administered on 08/28/16 13: 13; Admin Dose 30 MG; Start 08/21/16 at 21:00 NICHOL ACOSTA Aug 28, 2016 17:14
== END 2016-08-28 17:54 | DRG 303 ==
LOC: E/R 00:23 → MS4 06:28
PROVIDERS: ADMIT Internal Medicine Nephrology; ATTEND Internal Medicine Nephrology
DX: I25.119 Atherosclerotic heart disease of native coronary artery with unspecified angina pectoris (principal); Z76.82 Awaiting organ transplant status; I42.9 Cardiomyopathy, unspecified; I11.0 Hypertensive heart disease with heart failure; I50.9 Heart failure, unspecified; G45.9 Transient cerebral ischemic attack, unspecified; I25.709 Atherosclerosis of coronary artery bypass graft(s), unspecified, with unspecified angina pectoris; Z95.1 Presence of aortocoronary bypass graft; Z95.0 Presence of cardiac pacemaker; I65.23 Occlusion and stenosis of bilateral carotid arteries; E11.9 Type 2 diabetes mellitus without complications; F01.50 Vascular dementia, unspecified severity, without behavioral disturbance, psychotic disturbance, mood disturbance, and anxiety; G40.909 Epilepsy, unspecified, not intractable, without status epilepticus; Z79.02 Long term (current) use of antithrombotics/antiplatelets; Z79.82 Long term (current) use of aspirin; M62.81 Muscle weakness (generalized)
CPT/HCPCS: 36415; 70450; 70496; 70498; 71010; 71250; 76775; 80048; 80053; 80061; 80306; 80307; 81003; 82962; 83036; 84484; 85025; 85610; 85730; 87081; 92610; 93005; 96372; 96374; 96375; 96376; 97110; 97116; 97162; 97530; J1170; J1650; J1815; J1940; J2060; J2270; J2405; Q9967

== ENCOUNTER 2016-09-18 14:54 | Emergency (ER) | payer SELFPAY ==
[~2016-09-18] VITALS: Ht 167.6 cm; Wt 74.5 kg
[~2016-09-18 14:54] MED LIST changes: +ISOS10TA2 PO; +MORP15TA3 PO
[2016-09-18 15:14] VITALS: Ht 167.6 cm; Wt 74.5 kg
[2016-09-18] MEDS ORDERED: METF1000 PO (16:53)
[2016-09-18] MEDS ORDERED: MORP15TA92 PO (16:54)
[2016-09-18] MEDS ORDERED: NIT4 SL (16:59)
[2016-09-18] MEDS ORDERED: PANT40TA4 PO (17:01)
[2016-09-18] MEDS ORDERED: HYDR2TAB3 PO (17:02)
[2016-09-18] MEDS ORDERED: RANO10002 PO (17:02)
== END 2016-09-18 15:30 | disposition left against medical advice (07) ==
LOC: E/R 14:54
DX: Z53.21 Procedure and treatment not carried out due to patient leaving prior to being seen by health care provider (principal)

== ENCOUNTER 2016-09-18 16:12 | Inpatient (IN) | payer OTHER ==
[~2016-09-18] VITALS: Ht 165.1 cm; Wt 74.5 kg
[2016-09-18] MEDS ORDERED: ONDANSETRON 4 MG INJ IV STA (16:31)
[2016-09-18] MEDS ORDERED: NITROGLYCERIN 2% 1 GM OINT PKT TD STA (16:31)
[2016-09-18] MEDS ORDERED: ASPIRIN 325 MG TAB PO STA (16:31)
[2016-09-18] MEDS ORDERED: HYDROmorphONE 1 MG/ML SYG IV STA ×2 (16:31→20:10)
[2016-09-18] MEDS ORDERED: METF1000 PO (16:53)
[2016-09-18] MEDS ORDERED: MORP15TA92 PO (16:54)
[2016-09-18] MEDS ORDERED: NIT4 SL (16:59)
[2016-09-18] MEDS ORDERED: LORAZEPAM 2 MG INJ IV ONE (17:00)
[2016-09-18] MEDS ORDERED: PANT40TA4 PO (17:01)
[2016-09-18] MEDS ORDERED: HYDR2TAB3 PO (17:02)
[2016-09-18] MEDS ORDERED: RANO10002 PO (17:02)
[2016-09-18 17:05] LABS: ADD SCAN DIFF NO
[2016-09-18 17:07] LABS: BASOPHILS % 0.5 % (0.0-2.0); EOSINOPHILS # 0.1 10^3/ul (0.0-0.5); EOSINOPHILS % 1.5 % (0.0-7.0); LYMPHOCYTES # 2.6 10^3/ul (0.8-2.9); LYMPHOCYTES % 35.2 % (15.0-51.0); MEAN CORPUSCULAR HEMOGLOBIN 29.9 pg (29.0-33.0); MEAN CORPUSCULAR HGB CONC 33.3 g/dl (32.0-37.0); MEAN CORPUSCULAR VOLUME 89.8 fl (82.0-101.0); MEAN PLATELET VOLUME 10.5 fl (7.4-10.4); MONOCYTE # 0.8 10^3/ul (0.3-0.9); MONOCYTES % 10.2 % (0.0-11.0); NEUTROPHIL # 3.9 10^3/ul (1.6-7.5); NEUTROPHILS % 52.3 % (39.0-77.0); PLATELET COUNT 167 10^3/UL (140-415); RED BLOOD COUNT 4.01 10^6/ul (4.70-6.10); RED CELL DISTRIBUTION WIDTH 15.2 % (11.5-14.5); WHITE BLOOD COUNT 7.4 10^3/ul (4.8-10.8)
--- NOTE | 2016-09-18 17:07 | RADRPT ---
PROCEDURE: Chest x-ray CLINICAL INDICATION: Chest pain TECHNIQUE: Chest single view COMPARISON: 08/15/2016 FINDINGS: As before there is left chest multi lead AICD / pacer combination. Stable cardiomegaly and an scler otic aortic calcification. The pulmonary vessels are normal in caliber. The lungs are clear. The c ostophrenic angles are sharp. The visualized bony thorax is unremarkable. IMPRESSION: No acute cardiopulmonary disease. Stable cardiomegaly and atherosclerotic aortic calcification AICD RPTAT: HH .Bubba Carroll MD, MD Date Time Electronically viewed and signed by .Bubba Carroll MD, on 09/18/2016 17:07 .W/
[2016-09-18 17:18] LABS: CHLORIDE 103 mmol/L (97-110); POTASSIUM 4.3 mmol/L (3.5-5.1); SODIUM 140 mmol/L (135-144)
[2016-09-18 17:21] LABS: ANION GAP 17 (8-16); BLOOD UREA NITROGEN 22 mg/dl (7-20); CARBON DIOXIDE 24 mmol/L (21-31); CREATININE 0.82 mg/dl (0.61-1.24); GLUCOSE 198 mg/dl (70-220)
[2016-09-18 17:22] LABS: CALCIUM 9.5 mg/dl (8.4-10.2)
[2016-09-18 17:39] LABS: TROPONIN-I < 0.012 ng/ml (0.00-0.12)
--- NOTE | 2016-09-18 18:02 | ERA ---
ER Documentation Chief Complaint Date/Time DATE: 09/18/16 TIME: 17:58 Chief Complaint CHEST PAIN STARTED TODAY HPI This a 56-year-old male with a history of CAD status post CABG, cardiomyopathy with severely depressed left ventricular ejection fraction of 15%, history of AICD, history of percutaneous transfemoral coronary angioplasty and stent placement, hypertension, dyslipidemia, severe deconditioning, vascular dementia , diabetes mellitus, seizure disorder and coronary artery disease, encephalopathy, anemia, lower extremity weakness. He has been evaluated at [facility] for a cardiac transplant. Patient is here for 3 hours of substernal chest pressure with radiation to the left shoulder with diaphoresis. The patient said he took 6 nitroglycerin without relief. The patient's parachute/combatant diver officer is Dr. Olsen. Patient has multivessel disease. The patient was seen in the ER here earlier but was not seen by a physician yet.. thought that he was not being seen in fast enough so she took him home down the street and called 911. Currently he is very anxious and crying says his chest pain is mild ROS All systems reviewed and are negative except as per history of present illness. Medications Home Meds Active Scripts Isosorbide Dinitrate* (Isordil*) 10 Mg Tablet, 30 MG PO TID for 28 Days, TAB Prov:CARLOS MARTINEZ MD 08/22/16 Losartan Potassium* (Cozaar*) 50 Mg Tab, 50 MG PO Q12, #60 TAB Prov:ALIZA CUENCA MD 12/22/14 Reported Medications Hydromorphone Hcl* (Hydromorphone Hcl*) 2 Mg Tablet, 2 MG PO Q4H Y for PAIN, TAB 09/18/16 Ranolazine* (Ranexa*) 1,000 Mg Tab.sr.12h, 1000 MG PO Q12, TAB 09/18/16 Pantoprazole* (Pantoprazole*) 40 Mg Tablet.dr, 40 MG PO DAILY, TAB 09/18/16 Nitroglycerin* (Nitrostat*) Unknown Strength Tab.subl, 1 TAB.SL SL Q5MIN Y for CHEST PAIN, BOTTLE 09/18/16 Morphine Sulfate* (Ms Contin*) 15 Mg Tablet.sa, 15 MG PO Q6, TAB 09/18/16 Metformin Hcl* (Metformin Hcl*) 1,000 Mg Tablet, 1000 MG PO WITH BREAKFAST DINNE , #60 TAB 09/18/16 Aspirin* (Aspirin* Chew) 81 Mg Tab.chew, 81 MG PO DAILY, TAB.CHEW 07/16/16 Insulin Aspart (Novolog FlexPen) 100 Unit/1 Ml Insuln.pen, 0 SC SLIDING SCALE ACHS, EA 07/16/16 Cyanocobalamin* (Vitamin B-12*) 1,000 Mcg Tablet.sa, 1000 MCG PO DAILY, TAB 06/16/16 Baclofen* (Baclofen*) 10 Mg Tablet, 10 MG PO BID, TAB 06/16/16 Isosorbide Mononitrate* (Isosorbide Mononitrate*) 60 Mg Tab.er.24h, 90 MG PO DAILY, TAB 04/27/15 Atorvastatin* (Atorvastatin*) 40 Mg Tablet, 40 MG PO HS, TAB 12/18/14 Furosemide* (Furosemide*) 40 Mg Tablet, 40 MG PO BID, TAB 05/18/14 Alprazolam* (Alprazolam*) 0.5 Mg Tablet, 0.5 MG PO Q8 for ANXIETY, TAB 05/18/14 Clopidogrel Bisulfate (Clopidogrel) 75 Mg Tablet, 75 MG PO DAILY, TAB 04/26/14 Meclizine Hcl* (Meclizine Hcl*) 25 Mg Tablet, 25 MG PO TID Y for VERTIGO, TAB 04/26/14 Carvedilol* (Carvedilol*) 12.5 Mg Tablet, 12.5 MG PO BID, TAB 04/26/14 Amlodipine Besylate* (Amlodipine Besylate*) 5 Mg Tablet, 5 MG PO DAILY, TAB 04/26/14 Insulin Isophan/Regular (Humulin 70/30) 100 Units/Ml Susp, 15 UNIT SC AM, EA 04/26/14 Discontinued Reported Medications Morphine Sulfate* (Ms Contin*) 15 Mg Tablet.sa, 15 MG PO Q6, TAB.SA 06/16/16 Gabapentin* (Gabapentin*) 300 Mg Capsule, 300 MG PO BID, #60 CAP 06/16/16 Metformin Hcl* (Metformin Hcl*) 1,000 Mg Tablet, 1000 MG PO BID, TAB 04/26/14 Insulin Isophan/Regular (Humulin 70/30) 100 Units/Ml Susp, 15 UNIT SC PM, EA 04/26/14 Discontinued Scripts Morphine Sulfate (Morphine Sulfate ER) 15 Mg Tablet.er, 15 MG PO Q12 for 10 Days , TAB Prov:CARLOS MARTINEZ MD 08/22/16 [place]-3 Fatty Acids/Fish Oil (Fish Oil 1,000 mg Capsule) 1 Each Capsule, 1 EACH PO BID for 28 Days, CAP Prov:CARLOS MARTINEZ MD 06/18/16 Ranolazine* (Ranexa*) 500 Mg Tabsr, 1000 MG PO Q12 for 30 Days, TAB Prov:CARLOS MARTINEZ MD 05/02/15 Phenytoin* Sodium Extended (Dilantin*) 300 Mg Capsule, 300 MG PO HS, #30 CAP Prov:ALIZA CUENCA MD 12/22/14 Pantoprazole (Protonix) 40 Mg Tabec, 40 MG PO DAILY@06, #30 TAB Prov:ALIZA CUENCA MD 12/22/14 Nitroglycerin* (Nitrostat*) 25 Tab Subl, 1 TAB SL Q5M Y for CHEST PAIN, #90 TAB Prov:ALIZA CUENCA MD 12/22/14 Allergies Allergies: Coded Allergies: sumatriptan (Verified Allergy, Unknown, 09/18/16) sumatriptan succinate (Verified Allergy, Unknown, 09/18/16) venlafaxine HCl (Verified Allergy, Unknown, 09/18/16) PMhx/Soc History of Surgery: Yes (CABG '07, trach ' (d/t seratonin syndrome)) Anesthesia Reaction: Yes (combative "want to kill something") Hx Neurological Disorder: Yes (Stroke '07, left side weakness) Hx Respiratory Disorders: No Hx Cardiac Disorders: Yes (pacemaker '07, CABG '07) Hx Psychiatric Problems: No Hx Miscellaneous Medical Probl: Yes (CAD<DM,htn,CABG,dyslipidemia) Hx Alcohol Use: No Hx Substance Use: No Hx Tobacco Use: No Smoking Status: Unknown if ever smoked FmHx Family History: coronary disease Physical Exam Vitals Vital Signs Date Time Temp Pulse Resp B/P Pulse Ox O2 Delivery O2 Flow Rate FiO2 09/18/16 17:30 98.0 60 11 154/77 100 Room Air 09/18/16 17:25 Nasal Cannula 2 09/18/16 16:21 97.9 60 20 126/58 100 Physical Exam Const: Well-developed, well-nourished Head: Atraumatic, normocephalic Eyes: Normal Conjunctiva, PERRLA, EOMI, normal sclera, no nystagmus ENT: Normal External Ears, Nose and Mouth, moist mucus membranes. Neck: Full range of motion. No meningismus, no lymphadenopathy. Resp: Clear to auscultation bilaterally, no wheezing, rhonchi, rales Cardio: Regular rate and rhythm, no murmurs, S1 S2 present Abd: Soft, non tender x 4, non distended. Normal bowel sounds, no guarding or rebound, no pulsitile abdominal masses or bruits Skin: No petechiae or rashes, no ecchymosis , no maculopapular rash Back: No midline or flank tenderness Ext: No cyanosis, or edema, FROM x 4, normal inspection, neurovascularly intact x 4 Neur: Awake and alert, STR 5/5 x 4, sensation intact x 4, no focal findings, cerebellum intact Psych: Anxious Result Diagram: 09/18/16 1627 09/18/16 1627 Results 24 hrs Laboratory Tests Test 09/18/16 16:27 White Blood Count 7.410^3/ul Red Blood Count 4.0110^6/ul Hemoglobin 12.0g/dl Hematocrit 36.0% Mean Corpuscular Volume 89.8fl Mean Corpuscular Hemoglobin 29.9pg Mean Corpuscular Hemoglobin Concent 33.3g/dl Red Cell Distribution Width 15.2% Platelet Count 46658^3/UL Mean Platelet Volume 10.5fl Neutrophils % 52.3% Lymphocytes % 35.2% Monocytes % 10.2% Eosinophils % 1.5% Basophils % 0.5% Nucleated Red Blood Cells % 0.0/100WBC Neutrophils # 3.910^3/ul Lymphocytes # 2.610^3/ul Monocytes # 0.810^3/ul Eosinophils # 0.110^3/ul Basophils # 0.010^3/ul Nucleated Red Blood Cells # 0.010^3/ul Sodium Level 140mmol/L Potassium Level 4.3mmol/L Chloride Level 103mmol/L Carbon Dioxide Level 24mmol/L Anion Gap 17 Blood Urea Nitrogen 22mg/dl Creatinine 0.82mg/dl Glucose Level 198mg/dl Calcium Level 9.5mg/dl Troponin I < 0.012ng/ml Current Medications Medications (Trade) Dose Ordered Sig/Cecil Route PRN Reason Start Time Stop Time Status Last Admin Dose Admin Aspirin (Aspirin) 325 mg ONCE STAT PO 09/18/16 16:31 09/18/16 16:33 DC 09/18/16 16:47 Nitroglycerin (Nitroglycerin 2% Oint) 1 inch ONCE STAT TD 09/18/16 16:31 09/18/16 16:33 DC 09/18/16 16:47 Hydromorphone HCl (Dilaudid) 1 mg ONCE STAT IV 09/18/16 16:31 09/18/16 16:33 DC 09/18/16 16:46 Ondansetron HCl (Zofran Inj) 4 mg ONCE STAT IV 09/18/16 16:31 09/18/16 16:33 DC 09/18/16 16:46 Lorazepam (Ativan) 0.5 mg ONCE ONCE IV 09/18/16 17:00 09/18/16 17:01 DC 09/18/16 16:47 Procedures/MDM EKG: Rate/Rhythm: Normal sinus rhythm, left axis deviation with anterior inferior Q waves QRS, ST, QT: NORMAL GA, QRS, QT] Impression: NORMAL EKG PROCEDURE: Chest x-ray CLINICAL INDICATION: Chest pain TECHNIQUE: Chest single view COMPARISON: 08/15/2016 FINDINGS: As before there is left chest multi lead AICD / pacer combination. Stable cardiomegaly and an sclerotic aortic calcification. The pulmonary vessels are normal in caliber. The lungs are clear. The costophrenic angles are sharp. The visualized bony thorax is unremarkable. IMPRESSION: No acute cardiopulmonary disease. Stable cardiomegaly and atherosclerotic aortic calcification AICD RPTAT: HH .Bubba Carroll MD, Date Time Electronically viewed and signed by .Bubba Carroll MD, on 09/18/2016 17:07 .W/ CC: ARTUR BOO DO Patient received some Ativan along with narcotics for pain. He also has an inch of Nitropaste. Due to the patient's extensive history of need admitted to the hospital for at least to rule out Patient's symptoms are concerning for cardiac cause will require inpatient workup and continuous monitoring. Further w/u for ischemia, arrhythmia, PE or dissection will be deferred to the inpatient team. Accepting Care Team: Current data and ongoing care discussed. Time: Time of admission Primary Provider: Seeing Consulting: CINDY Outstanding Data: none Departure Diagnosis: Primary Impression: Chest pain Qualified Code: R07.9 - Chest pain, unspecified type Condition: Stable ARTUR BOO DO Sep 18, 2016 18:02
[2016-09-18 22:12] VITALS: TEMP 98
[2016-09-18] MEDS ORDERED: ACETAMINOPHEN 325 MG TAB PO PRN (22:30)
[2016-09-18] MEDS ORDERED: ONDANSETRON 4 MG INJ IV PRN ×2 (22:30→23:30)
[2016-09-18] MEDS ORDERED: ACETAMINOPHEN 650 MG SUPP PR PRN (23:30)
[2016-09-18] MEDS ORDERED: MECLIZINE 25 MG TAB PO PRN (23:30)
[2016-09-18] MEDS ORDERED: BISACODYL (EC) 5 MG TAB PO PRN (23:30)
[2016-09-18] MEDS ORDERED: NACL 0.9% 3 ML SYG IV SCH (23:30)
[2016-09-18] MEDS ORDERED: DOCUSATE SODIUM 100 MG CAP PO PRN (23:30)
[2016-09-18] MEDS ORDERED: MAGNESIUM HYDROXIDE 30ML CUP PO PRN (23:30)
[2016-09-19] VITALS (14 sets, daily range): BP systolic 94–171; BP diastolic 55–117; PULSE 60–65; RESP 18–20; Ht 165.1 cm; Wt 74.5 kg
[2016-09-19 00:26] LABS: CK-MB 1.06 ng/ml (0.0-2.4)
[2016-09-19 00:28] LABS: TROPONIN-I 0.015 ng/ml (0.00-0.12)
[2016-09-19] MEDS: HYDROmorphONE 2 MG TAB PO PRN ×4 (00:34→22:08)
[2016-09-19] MEDS: morphine (ER) 15 MG TAB PO SCH ×5 (02:12→23:50)
[2016-09-19] MEDS: FUROSEMIDE 40 MG TAB PO SCH ×2 (06:26→19:31)
[2016-09-19] MEDS: PANTOPRAZOLE (EC) 40 MG TAB PO SCH (06:27)
[2016-09-19] MEDS: ALPRAZOLAM 0.25 MG TAB PO SCH ×3 (06:27→21:00)
[2016-09-19] MEDS ORDERED: GLUCAGON 1 MG INJ IM PRN (07:30)
[2016-09-19] MEDS ORDERED: GLUCOSE GEL 15 GRAM TUBE BUCCAL PRN (07:30)
[2016-09-19] MEDS ORDERED: GLUCOSE GEL 15 GRAM TUBE PO PRN ×2 (07:30)
[2016-09-19] MEDS ORDERED: DEXTROSE 50% 50 ML SYRINGE IV PRN ×2 (07:30)
[2016-09-19] MEDS: BACLOFEN 10 MG TAB PO SCH ×2 (08:47→20:57)
[2016-09-19] MEDS: CLOPIDOGREL 75 MG TAB PO SCH (08:49)
[2016-09-19] MEDS: LOSARTAN 50 MG TAB PO SCH ×2 (08:49→20:58)
[2016-09-19] MEDS: CYANOCOBALAMIN 500 MCG TAB PO SCH (08:49)
[2016-09-19] MEDS: AMLODIPINE 5 MG TAB PO SCH (08:50)
[2016-09-19] MEDS: RANOLAZINE (SR) 500 MG TAB PO SCH ×2 (08:51→20:57)
[2016-09-19] MEDS: ASPIRIN 81 MG TAB PO SCH (08:51)
[2016-09-19] MEDS: ENOXAPARIN 40 MG/0.4 ML SYG SC SCH (08:58)
[2016-09-19] MEDS ORDERED: ISOSORBIDE DINITRATE 10 MG TAB PO SCH (09:00)
[2016-09-19] MEDS: INSULIN ASPART [NOVOLOG] 3 ML PEN SC SCH ×4 (09:22→21:08)
[2016-09-19] MEDS: ACETAMINOPHEN 325 MG TAB PO PRN ×2 (09:24→16:46)
[2016-09-19 10:32] LABS: CREATINE KINASE 36 IU/L (23-200)
[2016-09-19 10:42] LABS: CK-MB 1.04 ng/ml (0.0-2.4)
[2016-09-19 10:45] LABS: TROPONIN-I < 0.012 ng/ml (0.00-0.12)
[2016-09-19] MEDS: DIGOXIN 500 MCG INJ IV SCH ×2 (13:00→18:00)
--- NOTE | 2016-09-19 13:42 | CONS ---
DATE OF ADMISSION: 09/18/2016 DATE OF CONSULTATION: 09/19/2016 REASON FOR CONSULTATION: Chest pain, cardiomyopathy, congestive heart failure. REQUESTING PHYSICIAN: Dr. Shashank Martinez HISTORY OF PRESENT ILLNESS: Mr. Louis is a 56-year-old male with history of coronary artery dise ase, status post prior PTCA and stent placement to obtuse marginal in November 2014, coronary artery byp ass graft surgery with patent KNOTT to LAD and all other grafts occluded by catheterization 7 and at this time also revealed the patient to have diffuse disease of the distal LAD after the ins ertion of the KNOTT graft status post PTCA to distal LAD without significant change in symptoms, and attempted SUPERVISOR CARTOGRAPHY obtuse marginal at [facility] 07/31/2016, currently being evaluated for possible cardiac hernández splantation at [facility], who presents with complaints of shortness of breath refractory angina and genera lized weakness. Upon arrival, temperature of 97.9, blood pressure 126/58, pulse 60, respiratory rat e 20, saturating 100%. Patient's labs showed white count 10.4, hemoglobin 12.0, platelet count 167. Sodium 140, potassium 4.3, creatinine 0.8, BUN 22. Troponin negative. The patient underwent a est x-ray revealing no acute cardiopulmonary disease, stable cardiomegaly, atherosclerotic aortic ca lcification, AICD in proper place. The patient's EKG revealed normal sinus rhythm at a rate of 60 w ith left axis deviation, anteroseptal Q's, poor R-wave progression across the anterior precordial le ads with borderline inferior Q's. Patient subsequently has been admitted to the floor and since adm it to floor, continues to complain of generalized weakness, shortness of breath, chest pain. Thus f ar, the patient has had 3 negative troponins, ruling out for acute myocardial infarction. PAST MEDICAL HISTORY: As above in HPI with the patient additionally having findings of a total occl usion of the left internal carotid artery, severe calcific atherosclerotic disease in the right inte rnal carotid artery, total occlusion, anti-____ branch of the right middle cerebral artery, distal o cclusion of the right posterior cerebral artery, moderate stenosis of the left cerebral artery. MEDICATIONS CURRENTLY IN HOSPITAL: 1. Lipitor 40 mg at bedtime. 2. Norvasc 5 mg a day. 3. Aspirin 81 mg daily. 4. Baclofen 10 mg b.i.d. 5. Carvedilol 12.5 mg p.o. b.i.d. 6. Plavix 75 mg daily. 7. Vitamin B12. 8. Isordil 30 mg p.o. t.i.d. 9. Cozaar 50 mg q.12h. 10. Ranexa 1000 mg q.12h. 11. Lovenox 40 mg subcutaneously daily. 12. Lasix 40 mg p.o. b.i.d. 13. Protonix 40 mg daily. 14. Morphine 15 mg q.6h. p.r.n. 15. Dilaudid 2 q.4h. p.r.n. 16. Meclizine p.r.n. 17. Tylenol p.r.n. 18. Colace p.r.n. 19. Magnesium hydroxide p.r.n. 20. Zofran p.r.n. ALLERGIES: SUMATRIPTAN, VENLAFAXINE. SOCIAL HISTORY: No current tobacco, ETOH or illicit drug use. FAMILY HISTORY: No history of sudden cardiac or early CAD. REVIEW OF SYSTEMS: As above in HPI. CONSTITUTIONAL: No fevers, chills. PULMONARY: Shortness of breath. CARDIOVASCULAR: Chest pain, angina, cardiomyopathy. GASTROINTESTINAL: No vomiting. GENITOURINARY: No hematuria. MUSCULOSKELETAL: Degenerative joint disease. PSYCHIATRIC: Anxiety. NEUROLOGIC: No documented history of CVA. PHYSICAL EXAMINATION VITAL SIGNS: Temperature 98.3, blood pressure 120/60, pulse 60, respiration 18, saturating 97%. GENERAL: The patient is alert, awake, anxious. NECK: JVP approximately 9 cm of water. CHEST: Fair movement throughout with decreased breath sounds at bases bilaterally. HEART: Regular rate and rhythm. Normal S1, increased S2. Laterally displaced PMI, I/ systolic m urmur. ABDOMEN: Positive bowel sounds, soft. EXTREMITIES: No pitting edema. Difficult to palpate distal pulses bilaterally, posterior tibial. LABORATORY DATA: As above in HPI. No further labs for my review at this time. IMAGING STUDIES: As above in HPI. No further imaging studies for my review at this time. ELECTROCARDIOGRAM: As above in HPI. No further electrocardiograms for my review at this time. IMPRESSION: 1. Angina refractory to medical therapy, status post recent angioplasty to left anterior descending without change in significant symptoms due to diffuse nature of disease. 2. Cardiomyopathy with severely depressed left ventricular ejection fraction, last known to be appr oximately 15% by echo at [facility] 07/31/2016. 3. History of automated implantable cardioverter-defibrillator implant. 4. History of coronary artery disease, status post coronary bypass grafting with all grafts occlude d except for a left internal mammary artery graft at the time of last catheterization July 2016. 5. History of percutaneous transluminal coronary angioplasty and stent, with most recently percutan eous transluminal coronary angioplasty to the apical left anterior descending at [facility] without signifi cant change in symptoms. 6. Hypertension, under reasonable control. 7. Dyslipidemia. 8. Carotid stenosis. 9. Diabetes mellitus with elevated blood sugars uncontrolled. 10. Anemia. 11. Generalized weakness. 12. Possible vascular dementia. RECOMMENDATIONS: 1. At this time, would maintain the patient on telemetry monitoring to follow rhythm and rate contr ol closely. 2. Would continue the patient's current carvedilol and Losartan for treatment of cardiomyopathy and continue the patient's current Isordil, Norvasc and Ranexa for antianginal effect. 3. Continue the patient's aspirin and Plavix for stent patency and additionally for further cardiov ascular or cardiovascular events. 4. Continue the patient's p.o. Lasix following volume status closely, which is currently reasonabl e and continue the patient's antianxiety medications. 5. Will attempt to contact the patient's printing services coordinator and see if the patient might be a p ossible transplant transfer candidate for [facility] for ongoing workup and evaluation for possible cardiac transplant. 6. Additionally, patient is awaiting approval of outpatient study for capsule endoscopy. Thank you for allowing me to take part in the care of this patient. I will continue to follow very closely with you as recommendations will be made as the patient progresses through his inpatient ho spital course. Dictated By: NICHOL JACKSON/MOISES Conf#: [id number] DID#: [id number] CC: SHASHANK MARTINEZ MD;*EndCC*
[2016-09-19] MEDS: ISOSORBIDE DINITRATE 20 MG TAB PO SCH ×2 (13:47→20:56)
--- NOTE | 2016-09-19 19:32 | QN ---
Documentation Comment [id number] CARLOS MARTINEZ MD Sep 19, 2016 19:32
[2016-09-19] MEDS ORDERED: ATORVASTATIN 40 MG TAB PO SCH (21:00)
--- NOTE | 2016-09-19 23:44 | HP ---
DATE OF ADMISSION: 09/18/2016 HISTORY OF PRESENT ILLNESS: The patient is a 56-year-old male who was recently discharged from this hospital fpc with a diagnosis of angina, severe multiple vascular disease, history of CAD, history of coronary artery bypass graft, cardiomyopathy, ejection fraction 15%, history of AICD, history of percutaneous transluminal coronary angioplasty and stent placement, hypertension , dyslipidemia. History of dementia, diabetes mellitus, seizure disorder and CAD, encephalopathy. The patient now presents with shortness of breath and chest pain. The patient is awaiting for heart transplant. PAST MEDICAL HISTORY: Positive for hypertension, diabetes mellitus, CABG, angina, history of peripheral systolic heart failure, history of dyslipidemia, history of deconditioning, history of angiogram, history of disease, history of cardiomyopathy, history of percutaneous transluminal coronary angioplasty, history of stent placement, history of dyslipidemia, history of memory impairment, anemia. The patient also has carotid artery disease. ALLERGY HISTORY: SUMATRIPTAN, EFFEXOR. SOCIAL HISTORY: Negative at this point. MEDICATION HISTORY: The patient's home medications currently include, the patient is on 1. Xanax. 2. Amlodipine. 3. Aspirin. 4. Lipitor. 5. Baclofen. 6. Coreg. 7. Plavix. 8. B12. 9. Lasix. 10. Hydromorphone. 11. Insulin. 12. Isosorbide. 13. Losartan. 14. Meclizine. 15. Metformin. 16. Morphine. 17. Nitroglycerin. 18. Protonix. 19. Ranexa. REVIEW OF SYSTEMS: HEENT: Unremarkable. RESPIRATORY: Short of breath. CARDIOVASCULAR: On and off chest pressure. ABDOMEN: Unremarkable. EXTREMITIES: Unremarkable. PHYSICAL EXAMINATION: GENERAL: The patient is awake and alert. VITAL SIGNS: Pulse 60, blood pressure of 120/60. HEAD: Atraumatic, normocephalic. Pupils equal, reactive to light. No pallor or conjunctival icterus. NECK: Supple. LUNGS: Decreased air entry both bases with few rhonchi. CARDIOVASCULAR: S1, S2 normal. Systolic murmur noted. ABDOMEN: Soft, nontender. Bowel sounds present. No palpable mass or hepatosplenomegaly. No guarding, rebound tenderness. EXTREMITIES: There is no cyanosis, clubbing. Edema positive. CENTRAL NERVOUS SYSTEM: The patient is awake, alert with no focal deficit. LABORATORY DATA: Hematocrit 36, platelet count of 167. The patient's chest x-ray shows no acute cardiopulmonary disease, stable cardiomegaly, atherosclerotic aortic calcification. IMPRESSION: 1. Angina. 2. Rule out myocardial infarction. 3. Hypertension. 4. Diabetes mellitus. 5. Systolic heart failure. 6. Low ejection fraction. 7. Cardiomyopathy. 8. Dyslipidemia. 9. Deconditioning. 10. Awaiting for history of seizure disorder. 11. History of diabetes mellitus. PLAN: To continue home medication. Cardiology consultation. The patient required a routine colonoscopy for heart transplant evaluation. Dictated By: CARLOS MARTINEZ MD BS/NTS Conf#: [id number] DID#: [id number]
[2016-09-20] VITALS (13 sets, daily range): BP systolic 101–156; BP diastolic 52–75; PULSE 60–63; RESP 16–18
[2016-09-20] MEDS: ALPRAZOLAM 0.25 MG TAB PO SCH ×3 (05:28→22:15)
[2016-09-20] MEDS: PANTOPRAZOLE (EC) 40 MG TAB PO SCH (05:28)
[2016-09-20] MEDS: morphine (ER) 15 MG TAB PO SCH ×4 (05:28→23:41)
[2016-09-20] MEDS: FUROSEMIDE 40 MG TAB PO SCH ×2 (05:29→17:35)
[2016-09-20 07:48] LABS: CHOL/HDL RATIO 6.5 RATIO
[2016-09-20] MEDS: INSULIN ASPART [NOVOLOG] 3 ML PEN SC SCH ×4 (08:17→20:53)
[2016-09-20] MEDS: ASPIRIN 81 MG TAB PO SCH (08:40)
[2016-09-20] MEDS: ISOSORBIDE DINITRATE 20 MG TAB PO SCH ×3 (08:41→20:35)
[2016-09-20] MEDS: CYANOCOBALAMIN 500 MCG TAB PO SCH (08:41)
[2016-09-20] MEDS: BACLOFEN 10 MG TAB PO SCH ×2 (08:41→20:34)
[2016-09-20] MEDS: RANOLAZINE (SR) 500 MG TAB PO SCH ×2 (08:41→20:34)
[2016-09-20] MEDS: AMLODIPINE 5 MG TAB PO SCH (08:42)
[2016-09-20] MEDS: CLOPIDOGREL 75 MG TAB PO SCH (08:42)
[2016-09-20] MEDS: LOSARTAN 50 MG TAB PO SCH ×2 (08:43→20:34)
[2016-09-20] MEDS: ENOXAPARIN 40 MG/0.4 ML SYG SC SCH (08:46)
--- NOTE | 2016-09-20 09:33 | RADRPT ---
Vent Rate: 61 bpm RR Interval: 0 msec [place] Interval: 148 msec QRS Duration: 88 msec QT Interval: 454 msec QTC Interval: 457 msec P-R-T [place]: 60 - -67 - 149 degrees Electronic atrial pacemaker Left axis deviation Septal infarct , age undetermined Possible Lateral infarct , age undetermined Abnormal ECG Electronically Signed By: Michael Cassidy [id number]
[2016-09-20] MEDS: HYDROmorphONE 2 MG TAB PO PRN (10:34)
--- NOTE | 2016-09-20 11:11 | PN ---
Date/Time of Note Date/Time of Note DATE: 09/20/16 TIME: 11:09 Assessment/Plan VTE Prophylaxis VTE Prophylaxis Intervention: ambulation Lines/Catheters IV [facility]from [facility] Urinary Cath still in place: No Assessment/Plan Chief Complaint/Hosp Course 1. Angina. 2. Rule out myocardial infarction. 3. Hypertension. 4. Diabetes mellitus. 5. Systolic heart failure. 6. Low ejection fraction. 7. Cardiomyopathy. 8. Dyslipidemia. 9. Deconditioning. 10. Awaiting for history of seizure disorder. 11. History of diabetes mellitus. Problems: Assessment/Plan 1. Denied IV dilaudid for the pt 2. Per cardiology Subjective 24 Hr Interval Summary Constitutional: other (pain in back 01/09) Eyes: no complaints ENT: no complaints Respiratory: shortness of breath Cardiovascular: chest pain Gastrointestinal: no complaints Genitourinary: no complaints Musculoskeletal: back pain Skin: no complaints Exam/Review of Systems Vital Signs Vitals Vital Signs Date Time Temp Pulse Resp B/P Pulse Ox O2 Delivery O2 Flow Rate FiO2 09/20/16 09:16 60 09/20/16 07:35 98.4 16 156/72 96 09/19/16 20:00 Room Air 09/18/16 17:25 2 Intake and Output 09/19/16 09/19/16 09/20/16 15:00 23:00 07:00 Intake Total 720 ml 750 ml Output Total 1800 ml 1650 ml Balance -1080 ml -900 ml Exam Constitutional: alert, oriented Psych: no complaints Head: normocephalic Eyes: nl conjunctiva ENMT: nl external ears & nose Neck: supple Respiratory: clear to auscultation Cardiovascular: diastolic murmur, irregular rhythm Gastrointestinal: soft Musculoskeletal: nl extremities to inspection Results Result Diagram: 09/18/16 1627 09/18/16 1627 Results 24 hrs Laboratory Tests Test 09/19/16 12:26 09/19/16 19:03 09/19/16 21:03 09/20/16 06:13 Bedside Glucose 313 H 243 H 267 H Triglycerides Level 393 H Cholesterol Level 235 H LDL Cholesterol, Calculated 120 HDL Cholesterol 36 Cholesterol/HDL Ratio 6.5 Test 09/20/16 08:03 Bedside Glucose 257 H Medications Medications Current Medications Alprazolam (Xanax) 0.5 mg Q8 PO Last administered on 09/20/16 05:28; Admin Dose 0.5 MG; Start 09/19/16 at 06:00 Amlodipine Besylate (Norvasc) 5 mg DAILY PO Last administered on 09/20/16 08: 42; Admin Dose 5 MG; Start 09/19/16 at 09:00 Aspirin (Aspirin) 81 mg DAILY PO Last administered on 09/20/16 08:40; Admin Dose 81 MG; Start 09/19/16 at 09:00 Atorvastatin Calcium (Lipitor) 40 mg HS PO Last administered on 09/19/16 20:56 ; Admin Dose 40 MG; Start 09/19/16 at 21:00 Baclofen (Lioresal) 10 mg BID PO Last administered on 09/20/16 08:41; Admin Dose 10 MG; Start 09/19/16 at 09:00 Carvedilol (Coreg) 12.5 mg BID PO Last administered on 09/20/16 08:42; Admin Dose 12.5 MG; Start 09/19/16 at 09:00 Clopidogrel Bisulfate (plaVIX) 75 mg DAILY PO Last administered on 09/20/16 08 :42; Admin Dose 75 MG; Start 09/19/16 at 09:00 Cyanocobalamin (Vitamin B12) 1,000 mcg DAILY PO Last administered on 09/20/16 08:41; Admin Dose 1,000 MCG; Start 09/19/16 at 09:00 Hydromorphone HCl (Dilaudid) 2 mg Q4H PRN PO PAIN Last administered on 10:34; Admin Dose 2 MG; Start 09/18/16 at 23:30 Losartan Potassium (Cozaar) 50 mg Q12 PO Last administered on 09/20/16 08:43; Admin Dose 50 MG; Start 09/19/16 at 09:00 Meclizine HCl (Antivert) 25 mg TID PRN PO VERTIGO; Start 09/18/16 at 23:30 Morphine Sulfate (Ms Contin (Er)) 15 mg Q6 PO Last administered on 09/20/16 05 :28; Admin Dose 15 MG; Start 09/19/16 at 00:00 Pantoprazole (Protonix Tab) 40 mg DAILY@06 PO Last administered on 09/20/16 05 :28; Admin Dose 40 MG; Start 09/19/16 at 06:00 Ranolazine (Ranexa) 1,000 mg Q12 PO Last administered on 09/20/16 08:41; Admin Dose 1,000 MG; Start 09/19/16 at 09:00 Ondansetron HCl (Zofran Inj) 4 mg Q6H PRN IV NAUSEA AND/OR VOMITING; Start at 23:30 Acetaminophen (Tylenol Tab) 650 mg Q6H PRN PO PAIN LEVEL 1-3 OR FEVER Last administered on 09/19/16 16:46; Admin Dose 650 MG; Start 09/18/16 at 23:30 Acetaminophen (Tylenol Supp) 650 mg Q6H PRN [place] PAIN LEVEL 1-3 OR FEVER; Start 09/18/16 at 23:30 Docusate Sodium (Colace) 100 mg Q12H PRN PO CONSTIPATION; Start 09/18/16 at 23: 30 Magnesium Hydroxide (Milk Of Mag) 30 ml DAILY PRN PO CONSTIPATION; Start at 23:30 Bisacodyl (Dulcolax) 5 mg DAILY PRN PO CONSTIPATION; Start 09/18/16 at 23:30 Enoxaparin Sodium (Lovenox) 40 mg DAILY SC Last administered on 09/20/16 08:46 ; Admin Dose 40 MG; Start 09/19/16 at 09:00 Miscellaneous Information 1 ea NOTE XX ; Start 09/19/16 at 07:30 Glucose (Glutose) 15 gm Q15M PRN PO DECREASED GLUCOSE; Start 09/19/16 at 07:30 Glucose (Glutose) 22.5 gm Q15M PRN PO DECREASED GLUCOSE; Start 09/19/16 at 07: 30 Dextrose (D50w Syringe) 25 ml Q15M PRN IV DECREASED GLUCOSE; Start 09/19/16 at 07:30 Dextrose (D50w Syringe) 50 ml Q15M PRN IV DECREASED GLUCOSE; Start 09/19/16 at 07:30 Glucagon (Glucagen) 1 mg Q15M PRN IM DECREASED GLUCOSE; Start 09/19/16 at 07:30 Glucose (Glutose) 15 gm Q15M PRN BUCCAL DECREASED GLUCOSE; Start 09/19/16 at 07 :30 Isosorbide Dinitrate (Isordil) 40 mg TID PO Last administered on 09/20/16 08: 41; Admin Dose 40 MG; Start 09/19/16 at 13:00 СВЕТЛАНА WINSTON Sep 20, 2016 11:11
--- NOTE | 2016-09-20 14:30 | CONS ---
Date/Time of Note Date/Time of Note DATE: 09/20/16 TIME: 14:26 Assessment/Plan Assessment/Plan Chief Complaint/Hosp Course IMPRESSION: 1. Angina refractory to medical therapy, status post recent angioplasty to left anterior descending without change in significant symptoms due to diffuse nature of disease.-negative troponin x 3 since admit 2. Cardiomyopathy with severely depressed left ventricular ejection fraction, last known to be approximately 15% by echo at [facility] 07/31/2016.-currently reasonable volume status 3. History of automated implantable cardioverter-defibrillator implant. 4. History of coronary artery disease, status post coronary bypass grafting with all grafts occluded except for a left internal mammary artery graft at the time of last catheterization July 2016. 5. History of percutaneous transluminal coronary angioplasty and stent, with most recently percutaneous transluminal coronary angioplasty to the apical left anterior descending at [facility] without significant change in symptoms. 6. Hypertension, under reasonable control. 7. Dyslipidemia. 8. Carotid stenosis. 9. Diabetes mellitus with elevated blood sugars uncontrolled. 10. Anemia. 11. Generalized weakness. 12. Possible vascular dementia. Recc: -Tele -serial ecg's -Given c/o of recurrent chest pain will send additional troponin today -Continue coreg/norvasc/losartan/isordil -Continue ranexa -serial ecg's -If remains stable with good volume status then d/c planning with outpatient f/ u for pill endoscopy to eval for transplant and f/u at [facility] for ongoing eval. Problems: Consultation Date/Type/Reason Admit Date/Time Sep 18, 2016 at 22:25 Initial Consult Date 09/19/2016 Type of Consultation: Cardiology Reason for Consultation angina/cardiomyopathy Referring Provider: CARLOS MARTINEZ Exam/Review of Systems Vital Signs Vitals Vital Signs Date Time Temp Pulse Resp B/P Pulse Ox O2 Delivery O2 Flow Rate FiO2 09/20/16 12:18 60 09/20/16 11:59 97.5 16 132/62 98 09/19/16 20:00 Room Air 09/18/16 17:25 2 Intake and Output 09/19/16 09/19/16 09/20/16 15:00 23:00 07:00 Intake Total 720 ml 750 ml Output Total 1800 ml 1650 ml Balance -1080 ml -900 ml Exam Review of Systems: CONSTITUTIONAL: No fevers, chills. PULMONARY: No sob CARDIOVASCULAR: No chest pain/palpitations GASTROINTESTINAL: No nausea/vomiting. GENITOURINARY: No hematuria/dysuria. MUSCULOSKELETAL: No myagias/arthalgias. PSYCHIATRIC: The patient denies depression. NEUROLOGIC: No weakness Constitutional: alert, oriented Psych: no complaints Head: normocephalic ENMT: mucosa pink and moist Neck: jvd (9 cm water), supple Respiratory: diminished breath sounds (at bases/B) Cardiovascular: other (lateral PMI), regular rate and rhythm Gastrointestinal: non-tender, soft Musculoskeletal: muscle weakness (generalized) Extremities: edema (none) Results Result Diagram: 09/18/16 1627 09/18/16 1627 Results 24 hrs Laboratory Tests Test 09/19/16 19:03 09/19/16 21:03 09/20/16 06:13 09/20/16 08:03 Bedside Glucose 243 H 267 H 257 H Triglycerides Level 393 H Cholesterol Level 235 H LDL Cholesterol, Calculated 120 HDL Cholesterol 36 Cholesterol/HDL Ratio 6.5 Test 09/20/16 12:29 Bedside Glucose 300 H Medications Medications Current Medications Alprazolam (Xanax) 0.5 mg Q8 PO Last administered on 09/20/16 05:28; Admin Dose 0.5 MG; Start 09/19/16 at 06:00 Amlodipine Besylate (Norvasc) 5 mg DAILY PO Last administered on 09/20/16 08: 42; Admin Dose 5 MG; Start 09/19/16 at 09:00 Aspirin (Aspirin) 81 mg DAILY PO Last administered on 09/20/16 08:40; Admin Dose 81 MG; Start 09/19/16 at 09:00 Atorvastatin Calcium (Lipitor) 40 mg HS PO Last administered on 09/19/16 20:56 ; Admin Dose 40 MG; Start 09/19/16 at 21:00 Baclofen (Lioresal) 10 mg BID PO Last administered on 09/20/16 08:41; Admin Dose 10 MG; Start 09/19/16 at 09:00 Carvedilol (Coreg) 12.5 mg BID PO Last administered on 09/20/16 08:42; Admin Dose 12.5 MG; Start 09/19/16 at 09:00 Clopidogrel Bisulfate (plaVIX) 75 mg DAILY PO Last administered on 09/20/16 08 :42; Admin Dose 75 MG; Start 09/19/16 at 09:00 Cyanocobalamin (Vitamin B12) 1,000 mcg DAILY PO Last administered on 09/20/16 08:41; Admin Dose 1,000 MCG; Start 09/19/16 at 09:00 Hydromorphone HCl (Dilaudid) 2 mg Q4H PRN PO PAIN Last administered on 10:34; Admin Dose 2 MG; Start 09/18/16 at 23:30 Losartan Potassium (Cozaar) 50 mg Q12 PO Last administered on 09/20/16 08:43; Admin Dose 50 MG; Start 09/19/16 at 09:00 Meclizine HCl (Antivert) 25 mg TID PRN PO VERTIGO; Start 09/18/16 at 23:30 Morphine Sulfate (Ms Contin (Er)) 15 mg Q6 PO Last administered on 09/20/16 12 :37; Admin Dose 15 MG; Start 09/19/16 at 00:00 Pantoprazole (Protonix Tab) 40 mg DAILY@06 PO Last administered on 09/20/16 05 :28; Admin Dose 40 MG; Start 09/19/16 at 06:00 Ranolazine (Ranexa) 1,000 mg Q12 PO Last administered on 09/20/16 08:41; Admin Dose 1,000 MG; Start 09/19/16 at 09:00 Ondansetron HCl (Zofran Inj) 4 mg Q6H PRN IV NAUSEA AND/OR VOMITING; Start at 23:30 Acetaminophen (Tylenol Tab) 650 mg Q6H PRN PO PAIN LEVEL 1-3 OR FEVER Last administered on 09/19/16 16:46; Admin Dose 650 MG; Start 09/18/16 at 23:30 Acetaminophen (Tylenol Supp) 650 mg Q6H PRN [place] PAIN LEVEL 1-3 OR FEVER; Start 09/18/16 at 23:30 Docusate Sodium (Colace) 100 mg Q12H PRN PO CONSTIPATION; Start 09/18/16 at 23: 30 Magnesium Hydroxide (Milk Of Mag) 30 ml DAILY PRN PO CONSTIPATION; Start at 23:30 Bisacodyl (Dulcolax) 5 mg DAILY PRN PO CONSTIPATION; Start 09/18/16 at 23:30 Enoxaparin Sodium (Lovenox) 40 mg DAILY SC Last administered on 09/20/16 08:46 ; Admin Dose 40 MG; Start 09/19/16 at 09:00 Miscellaneous Information 1 ea NOTE XX ; Start 09/19/16 at 07:30 Glucose (Glutose) 15 gm Q15M PRN PO DECREASED GLUCOSE; Start 09/19/16 at 07:30 Glucose (Glutose) 22.5 gm Q15M PRN PO DECREASED GLUCOSE; Start 09/19/16 at 07: 30 Dextrose (D50w Syringe) 25 ml Q15M PRN IV DECREASED GLUCOSE; Start 09/19/16 at 07:30 Dextrose (D50w Syringe) 50 ml Q15M PRN IV DECREASED GLUCOSE; Start 09/19/16 at 07:30 Glucagon (Glucagen) 1 mg Q15M PRN IM DECREASED GLUCOSE; Start 09/19/16 at 07:30 Glucose (Glutose) 15 gm Q15M PRN BUCCAL DECREASED GLUCOSE; Start 09/19/16 at 07 :30 Isosorbide Dinitrate (Isordil) 40 mg TID PO Last administered on 09/20/16 13: 16; Admin Dose 40 MG; Start 09/19/16 at 13:00 NICHOL ACOSTA Sep 20, 2016 14:30
[2016-09-20] MEDS: morphine 2 MG INJ IV PRN ×2 (17:37→22:15)
[2016-09-20] MEDS ORDERED: INSULIN GLARGINE [LANtus] 3 ML PEN SC SCH (20:00)
[2016-09-20] MEDS: ATORVASTATIN 80 MG TAB PO SCH (20:34)
[2016-09-20] MEDS ORDERED: DEXTROSE 50% 50 ML SYRINGE IV PRN ×4 (21:30→22:00)
[2016-09-20] MEDS ORDERED: GLUCOSE GEL 15 GRAM TUBE BUCCAL PRN ×2 (21:30→22:00)
[2016-09-20] MEDS ORDERED: GLUCOSE GEL 15 GRAM TUBE PO PRN ×4 (21:30→22:00)
[2016-09-20] MEDS ORDERED: GLUCAGON 1 MG INJ IM PRN ×2 (21:30→22:00)
[2016-09-21] VITALS (10 sets, daily range): BP systolic 101–145; BP diastolic 56–63; PULSE 60; RESP 20
[2016-09-21] MEDS: ACCU-CHEK XX SCH (01:55)
[2016-09-21] MEDS ORDERED: ACCU-CHEK XX SCH (02:00)
[2016-09-21] MEDS: FUROSEMIDE 40 MG TAB PO SCH ×2 (05:40→17:14)
[2016-09-21] MEDS: PANTOPRAZOLE (EC) 40 MG TAB PO SCH (05:40)
[2016-09-21] MEDS: ALPRAZOLAM 0.25 MG TAB PO SCH ×3 (05:41→22:06)
[2016-09-21] MEDS: morphine (ER) 15 MG TAB PO SCH ×3 (05:41→17:12)
[2016-09-21 07:35] LABS: ADD SCAN DIFF NO
[2016-09-21 07:45] LABS: BASOPHILS % 0.6 % (0.0-2.0); EOSINOPHILS # 0.2 10^3/ul (0.0-0.5); EOSINOPHILS % 2.9 % (0.0-7.0); HEMATOCRIT 37.3 % (42.0-52.0); HEMOGLOBIN 12.1 g/dl (14.0-18.0); LYMPHOCYTES # 2.6 10^3/ul (0.8-2.9); LYMPHOCYTES % 35.6 % (15.0-51.0); MEAN CORPUSCULAR HEMOGLOBIN 28.9 pg (29.0-33.0); MEAN CORPUSCULAR HGB CONC 32.4 g/dl (32.0-37.0); MEAN PLATELET VOLUME 10.4 fl (7.4-10.4); MONOCYTE # 0.8 10^3/ul (0.3-0.9); MONOCYTES % 10.9 % (0.0-11.0); NEUTROPHIL # 3.6 10^3/ul (1.6-7.5); NEUTROPHILS % 49.9 % (39.0-77.0); PLATELET COUNT 160 10^3/UL (140-415); RED BLOOD COUNT 4.19 10^6/ul (4.70-6.10); RED CELL DISTRIBUTION WIDTH 14.9 % (11.5-14.5); WHITE BLOOD COUNT 7.2 10^3/ul (4.8-10.8)
[2016-09-21 07:57] LABS: CREATININE 0.8 mg/dl (0.61-1.24)
[2016-09-21 07:58] LABS: CALCIUM 9.3 mg/dl (8.4-10.2)
[2016-09-21] MEDS: morphine 2 MG INJ IV PRN ×4 (08:08→22:06)
[2016-09-21] MEDS: INSULIN ASPART [NOVOLOG] 3 ML PEN SC SCH ×4 (08:14→20:30)
[2016-09-21] MEDS: AMLODIPINE 5 MG TAB PO SCH (09:29)
[2016-09-21] MEDS: RANOLAZINE (SR) 500 MG TAB PO SCH ×2 (09:29→20:20)
[2016-09-21] MEDS: LOSARTAN 50 MG TAB PO SCH ×2 (09:29→20:20)
[2016-09-21] MEDS: ASPIRIN 81 MG TAB PO SCH (09:29)
[2016-09-21] MEDS: CLOPIDOGREL 75 MG TAB PO SCH (09:29)
[2016-09-21] MEDS: CYANOCOBALAMIN 500 MCG TAB PO SCH (09:29)
[2016-09-21] MEDS: BACLOFEN 10 MG TAB PO SCH ×2 (09:30→20:19)
[2016-09-21] MEDS: ISOSORBIDE DINITRATE 20 MG TAB PO SCH ×3 (09:30→20:19)
[2016-09-21] MEDS: ENOXAPARIN 40 MG/0.4 ML SYG SC SCH (09:31)
[2016-09-21] MEDS: DIGOXIN 0.125 MG TAB PO SCH (12:25)
--- NOTE | 2016-09-21 12:31 | PN ---
Date/Time of Note Date/Time of Note DATE: 09/21/16 TIME: 12:29 Assessment/Plan VTE Prophylaxis VTE Prophylaxis Intervention: ambulation Lines/Catheters IV Catheter Type (from [facility]): [facility] Urinary Cath still in place: No Assessment/Plan Chief Complaint/Hosp Course 1. Angina. 2. Rule out myocardial infarction. 3. Hypertension. 4. Diabetes mellitus. 5. Systolic heart failure. 6. Low ejection fraction. 7. Cardiomyopathy. 8. Dyslipidemia. 9. Deconditioning. 10. Awaiting for history of seizure disorder. 11. History of diabetes mellitus. Problems: Assessment/Plan 1. Continue telemonitoring, no events for the last night Subjective 24 Hr Interval Summary Constitutional: poor po Eyes: no complaints ENT: no complaints Cardiovascular: chest pain, orthopenea Gastrointestinal: no complaints Genitourinary: no complaints Exam/Review of Systems Vital Signs Vitals Vital Signs Date Time Temp Pulse Resp B/P Pulse Ox O2 Delivery O2 Flow Rate FiO2 09/21/16 12:18 60 09/21/16 12:11 97.6 20 132/63 99 09/19/16 20:00 Room Air 09/18/16 17:25 2 Intake and Output 09/20/16 09/20/16 09/21/16 15:00 23:00 07:00 Intake Total 700 ml Output Total 1850 ml Balance -1150 ml Exam Constitutional: alert, oriented Head: normocephalic Eyes: nl conjunctiva ENMT: nl external ears & nose Neck: supple Respiratory: clear to auscultation, diminished breath sounds Cardiovascular: irregular rhythm Gastrointestinal: soft Results Result Diagram: 09/21/16 0601 09/21/16 0601 Results 24 hrs Laboratory Tests Test 09/20/16 17:46 09/20/16 20:45 09/21/16 01:48 09/21/16 06:01 Bedside Glucose 253 H 325 H 195 White Blood Count 7.2 Red Blood Count 4.19 L Hemoglobin 12.1 L Hematocrit 37.3 L Mean Corpuscular Volume 89.0 Mean Corpuscular Hemoglobin 28.9 L Mean Corpuscular Hemoglobin Concent 32.4 Red Cell Distribution Width 14.9 H Platelet Count 160 Mean Platelet Volume 10.4 Neutrophils % 49.9 Lymphocytes % 35.6 Monocytes % 10.9 Eosinophils % 2.9 Basophils % 0.6 Nucleated Red Blood Cells % 0.0 Neutrophils # 3.6 Lymphocytes # 2.6 Monocytes # 0.8 Eosinophils # 0.2 Basophils # 0.0 Nucleated Red Blood Cells # 0.0 Sodium Level 139 Potassium Level 4.0 Chloride Level 99 Carbon Dioxide Level 29 Anion Gap 15 Blood Urea Nitrogen 19 Creatinine 0.80 Glucose Level 140 Calcium Level 9.3 Test 09/21/16 07:50 09/21/16 11:48 Bedside Glucose 217 211 Medications Medications Current Medications Alprazolam (Xanax) 0.5 mg Q8 PO Last administered on 09/21/16 05:41; Admin Dose 0.5 MG; Start 09/19/16 at 06:00 Amlodipine Besylate (Norvasc) 5 mg DAILY PO Last administered on 09/21/16 09: 29; Admin Dose 5 MG; Start 09/19/16 at 09:00 Aspirin (Aspirin) 81 mg DAILY PO Last administered on 09/21/16 09:29; Admin Dose 81 MG; Start 09/19/16 at 09:00 Baclofen (Lioresal) 10 mg BID PO Last administered on 09/21/16 09:30; Admin Dose 10 MG; Start 09/19/16 at 09:00 Carvedilol (Coreg) 12.5 mg BID PO Last administered on 09/21/16 09:28; Admin Dose 12.5 MG; Start 09/19/16 at 09:00 Clopidogrel Bisulfate (plaVIX) 75 mg DAILY PO Last administered on 09/21/16 09 :29; Admin Dose 75 MG; Start 09/19/16 at 09:00 Cyanocobalamin (Vitamin B12) 1,000 mcg DAILY PO Last administered on 09/21/16 09:29; Admin Dose 1,000 MCG; Start 09/19/16 at 09:00 Losartan Potassium (Cozaar) 50 mg Q12 PO Last administered on 09/21/16 09:29; Admin Dose 50 MG; Start 09/19/16 at 09:00 Meclizine HCl (Antivert) 25 mg TID PRN PO VERTIGO; Start 09/18/16 at 23:30 Morphine Sulfate (Ms Contin (Er)) 15 mg Q6 PO Last administered on 09/21/16 05 :41; Admin Dose 15 MG; Start 09/19/16 at 00:00 Pantoprazole (Protonix Tab) 40 mg DAILY@06 PO Last administered on 09/21/16 05 :40; Admin Dose 40 MG; Start 09/19/16 at 06:00 Ranolazine (Ranexa) 1,000 mg Q12 PO Last administered on 09/21/16 09:29; Admin Dose 1,000 MG; Start 09/19/16 at 09:00 Ondansetron HCl (Zofran Inj) 4 mg Q6H PRN IV NAUSEA AND/OR VOMITING; Start at 23:30 Acetaminophen (Tylenol Tab) 650 mg Q6H PRN PO PAIN LEVEL 1-3 OR FEVER Last administered on 09/19/16 16:46; Admin Dose 650 MG; Start 09/18/16 at 23:30 Acetaminophen (Tylenol Supp) 650 mg Q6H PRN [place] PAIN LEVEL 1-3 OR FEVER; Start 09/18/16 at 23:30 Docusate Sodium (Colace) 100 mg Q12H PRN PO CONSTIPATION; Start 09/18/16 at 23: 30 Magnesium Hydroxide (Milk Of Mag) 30 ml DAILY PRN PO CONSTIPATION; Start at 23:30 Bisacodyl (Dulcolax) 5 mg DAILY PRN PO CONSTIPATION; Start 09/18/16 at 23:30 Enoxaparin Sodium (Lovenox) 40 mg DAILY SC Last administered on 09/21/16 09:31 ; Admin Dose 40 MG; Start 09/19/16 at 09:00 Miscellaneous Information 1 ea NOTE XX ; Start 09/19/16 at 07:30 Isosorbide Dinitrate (Isordil) 40 mg TID PO Last administered on 09/21/16 09: 30; Admin Dose 40 MG; Start 09/19/16 at 13:00 Digoxin (Digoxin) 0.125 mg DAILY@13 PO ; Start 09/21/16 at 13:00 Atorvastatin Calcium (Lipitor) 80 mg HS PO Last administered on 09/20/16 20:34 ; Admin Dose 80 MG; Start 09/20/16 at 21:00 Morphine Sulfate (morphine) 1 mg Q4H PRN IV SEDATION Last administered on 08:08; Admin Dose 1 MG; Start 09/20/16 at 16:30 Insulin Glargine (Lantus) 20 unit DAILY@20 SC ; Start 09/21/16 at 20:00 Diagnostic Test (Pha) (Accu-Chek) 1 ea 02 XX Last administered on 09/21/16t 01: 55; Admin Dose 1 EA; Start 09/21/16 at 02:00 Miscellaneous Information 1 ea NOTE XX ; Start 09/20/16 at 21:30 Glucose (Glutose) 15 gm Q15M PRN PO DECREASED GLUCOSE; Start 09/20/16 at 21:30 Glucose (Glutose) 22.5 gm Q15M PRN PO DECREASED GLUCOSE; Start 09/20/16 at 21: 30 Dextrose (D50w Syringe) 25 ml Q15M PRN IV DECREASED GLUCOSE; Start 09/20/16 at 21:30 Dextrose (D50w Syringe) 50 ml Q15M PRN IV DECREASED GLUCOSE; Start 09/20/16 at 21:30 Glucagon (Glucagen) 1 mg Q15M PRN IM DECREASED GLUCOSE; Start 09/20/16 at 21:30 Glucose (Glutose) 15 gm Q15M PRN BUCCAL DECREASED GLUCOSE; Start 09/20/16 at 21 :30 Miscellaneous Information 1 ea NOTE XX ; Start 09/20/16 at 22:00 Glucose (Glutose) 15 gm Q15M PRN PO DECREASED GLUCOSE; Start 09/20/16 at 22:00 Glucose (Glutose) 22.5 gm Q15M PRN PO DECREASED GLUCOSE; Start 09/20/16 at 22: 00 Dextrose (D50w Syringe) 25 ml Q15M PRN IV DECREASED GLUCOSE; Start 09/20/16 at 22:00 Dextrose (D50w Syringe) 50 ml Q15M PRN IV DECREASED GLUCOSE; Start 09/20/16 at 22:00 Glucagon (Glucagen) 1 mg Q15M PRN IM DECREASED GLUCOSE; Start 09/20/16 at 22:00 Glucose (Glutose) 15 gm Q15M PRN BUCCAL DECREASED GLUCOSE; Start 09/20/16 at 22 :00 СВЕТЛАНА WINSTON Sep 21, 2016 12:31
[2016-09-21] MEDS: ATORVASTATIN 80 MG TAB PO SCH (20:19)
[2016-09-21] MEDS: INSULIN GLARGINE [LANtus] 3 ML PEN SC SCH (20:31)
[2016-09-22] VITALS (11 sets, daily range): BP systolic 117–141; BP diastolic 47–67; PULSE 60–73; RESP 15–20
[2016-09-22] MEDS: ACCU-CHEK XX SCH (02:04)
[2016-09-22] MEDS: morphine 2 MG INJ IV PRN ×4 (02:04→20:09)
[2016-09-22] MEDS: morphine (ER) 15 MG TAB PO SCH ×4 (05:54→17:38)
[2016-09-22] MEDS: FUROSEMIDE 40 MG TAB PO SCH ×2 (05:55→17:17)
[2016-09-22] MEDS: PANTOPRAZOLE (EC) 40 MG TAB PO SCH (05:55)
[2016-09-22] MEDS: ALPRAZOLAM 0.25 MG TAB PO SCH ×2 (05:55→12:21)
[2016-09-22] MEDS: INSULIN ASPART [NOVOLOG] 3 ML PEN SC SCH ×3 (08:29→17:15)
[2016-09-22] MEDS: LOSARTAN 50 MG TAB PO SCH (09:59)
[2016-09-22] MEDS: RANOLAZINE (SR) 500 MG TAB PO SCH (09:59)
[2016-09-22] MEDS: CLOPIDOGREL 75 MG TAB PO SCH (09:59)
[2016-09-22] MEDS: ASPIRIN 81 MG TAB PO SCH (09:59)
[2016-09-22] MEDS: BACLOFEN 10 MG TAB PO SCH (10:00)
[2016-09-22] MEDS: CYANOCOBALAMIN 500 MCG TAB PO SCH (10:00)
[2016-09-22] MEDS: AMLODIPINE 5 MG TAB PO SCH (10:00)
[2016-09-22] MEDS: ISOSORBIDE DINITRATE 20 MG TAB PO SCH ×2 (10:00→12:21)
[2016-09-22] MEDS: ENOXAPARIN 40 MG/0.4 ML SYG SC SCH (10:08)
[2016-09-22] MEDS: DIGOXIN 0.125 MG TAB PO SCH (12:21)
--- NOTE | 2016-09-22 15:31 | CONS ---
Date/Time of Note Date/Time of Note DATE: 09/22/16 TIME: 15:28 Assessment/Plan Assessment/Plan Additional Assessment/Plan 1. Angina refractory to medical therapy, status post recent angioplasty to left anterior descending without change in significant symptoms due to diffuse nature of disease.-negative troponin x 3 since admit - STILL REPORTS PAIN, mED RX FOR NOW 2. Cardiomyopathy with severely depressed left ventricular ejection fraction, last known to be approximately 15% by echo at [facility] 07/31/2016.-currently reasonable volume status 3. History of automated implantable cardioverter-defibrillator implant. GOOD fxn. 4. History of coronary artery disease, status post coronary bypass grafting with all grafts occluded except for a left internal mammary artery graft at the time of last catheterization July 2016. 5. History of percutaneous transluminal coronary angioplasty and stent, with most recently percutaneous transluminal coronary angioplasty to the apical left anterior descending at [facility] without significant change in symptoms. 6. Hypertension, under reasonable control. 7. Dyslipidemia. 8. Carotid stenosis. 9. Diabetes mellitus with elevated blood sugars uncontrolled. 10. Anemia. 11. Generalized weakness. 12. Possible vascular dementia. Consultation Date/Type/Reason Admit Date/Time Sep 18, 2016 at 22:25 Initial Consult Date Type of Consultation: Cardiology Referring Provider: CARLOS MARTINEZ MD 24 HR Interval Summary Free Text/Dictation NO acute change - no ectopy on tele - R/O DC - con't Pain rx ROS: No fever, no chills, no nausea, no vomiting, no diarrhea/constipation No recent weight changes + chest pain, no PND, no orthopnea No dizziness, blurred vision No thirst, no heat or cold intolerance Exam/Review of Systems Vital Signs Vitals Vital Signs Date Time Temp Pulse Resp B/P Pulse Ox O2 Delivery O2 Flow Rate FiO2 09/22/16 12:18 73 09/22/16 11:56 97.3 20 117/66 98 09/19/16 20:00 Room Air 09/18/16 17:25 2 Intake and Output 09/21/16 09/21/16 09/22/16 15:00 23:00 07:00 Intake Total 1060 ml Balance 1060 ml Exam General: WN/WD/NAD, AOx 3 HEENT: Unicetric/atraumatic/EOMI (follow commands) NECK: JVD elevated, no thyromegaly Lymph: no lymphadenopathy HEART: regular with no S3, II/ systolic murmur at apex, ICD LUNGS: Coarse sounds ABD: soft, NT, ND, +BS : Intact Neuro: non focal SKIN: chronic changes EXT: trace edema Results Result Diagram: 09/21/16 0601 09/21/16 0601 Results 24 hrs Laboratory Tests Test 09/21/16 17:17 09/21/16 20:17 09/22/16 01:23 09/22/16 08:10 Bedside Glucose 189 273 H 177 153 Test 09/22/16 12:04 Bedside Glucose 138 Medications Medications Current Medications Alprazolam (Xanax) 0.5 mg Q8 PO Last administered on 09/22/16 12:21; Admin Dose 0.5 MG; Start 09/19/16 at 06:00 Amlodipine Besylate (Norvasc) 5 mg DAILY PO Last administered on 09/22/16 10: 00; Admin Dose 5 MG; Start 09/19/16 at 09:00 Aspirin (Aspirin) 81 mg DAILY PO Last administered on 09/22/16 09:59; Admin Dose 81 MG; Start 09/19/16 at 09:00 Baclofen (Lioresal) 10 mg BID PO Last administered on 09/22/16 10:00; Admin Dose 10 MG; Start 09/19/16 at 09:00 Carvedilol (Coreg) 12.5 mg BID PO Last administered on 09/22/16 09:59; Admin Dose 12.5 MG; Start 09/19/16 at 09:00 Clopidogrel Bisulfate (plaVIX) 75 mg DAILY PO Last administered on 09/22/16 09 :59; Admin Dose 75 MG; Start 09/19/16 at 09:00 Cyanocobalamin (Vitamin B12) 1,000 mcg DAILY PO Last administered on 09/22/16 10:00; Admin Dose 1,000 MCG; Start 09/19/16 at 09:00 Losartan Potassium (Cozaar) 50 mg Q12 PO Last administered on 09/22/16 09:59; Admin Dose 50 MG; Start 09/19/16 at 09:00 Meclizine HCl (Antivert) 25 mg TID PRN PO VERTIGO; Start 09/18/16 at 23:30 Morphine Sulfate (Ms Contin (Er)) 15 mg Q6 PO Last administered on 09/22/16 12 :22; Admin Dose 15 MG; Start 09/19/16 at 00:00 Pantoprazole (Protonix Tab) 40 mg DAILY@06 PO Last administered on 09/22/16 05 :55; Admin Dose 40 MG; Start 09/19/16 at 06:00 Ranolazine (Ranexa) 1,000 mg Q12 PO Last administered on 09/22/16 09:59; Admin Dose 1,000 MG; Start 09/19/16 at 09:00 Ondansetron HCl (Zofran Inj) 4 mg Q6H PRN IV NAUSEA AND/OR VOMITING; Start at 23:30 Acetaminophen (Tylenol Tab) 650 mg Q6H PRN PO PAIN LEVEL 1-3 OR FEVER Last administered on 09/19/16 16:46; Admin Dose 650 MG; Start 09/18/16 at 23:30 Acetaminophen (Tylenol Supp) 650 mg Q6H PRN [place] PAIN LEVEL 1-3 OR FEVER; Start 09/18/16 at 23:30 Docusate Sodium (Colace) 100 mg Q12H PRN PO CONSTIPATION; Start 09/18/16 at 23: 30 Magnesium Hydroxide (Milk Of Mag) 30 ml DAILY PRN PO CONSTIPATION; Start at 23:30 Bisacodyl (Dulcolax) 5 mg DAILY PRN PO CONSTIPATION; Start 09/18/16 at 23:30 Enoxaparin Sodium (Lovenox) 40 mg DAILY SC Last administered on 09/22/16 10:08 ; Admin Dose 40 MG; Start 09/19/16 at 09:00 Miscellaneous Information 1 ea NOTE XX ; Start 09/19/16 at 07:30 Isosorbide Dinitrate (Isordil) 40 mg TID PO Last administered on 09/22/16 12: 21; Admin Dose 40 MG; Start 09/19/16 at 13:00 Digoxin (Digoxin) 0.125 mg DAILY@13 PO Last administered on 09/22/16 12:21; Admin Dose 0.125 MG; Start 09/21/16 at 13:00 Atorvastatin Calcium (Lipitor) 80 mg HS PO Last administered on 09/21/16 20:19 ; Admin Dose 80 MG; Start 09/20/16 at 21:00 Morphine Sulfate (morphine) 1 mg Q4H PRN IV SEDATION Last administered on 15:02; Admin Dose 1 MG; Start 09/20/16 at 16:30 Insulin Glargine (Lantus) 20 unit DAILY@20 SC Last administered on 09/21/16 20 :31; Admin Dose 20 UNIT; Start 09/21/16 at 20:00 Diagnostic Test (Pha) (Accu-Chek) 1 ea 02 XX Last administered on 09/22/16 02: 04; Admin Dose 1 EA; Start 09/21/16 at 02:00 Miscellaneous Information 1 ea NOTE XX ; Start 09/20/16 at 21:30 Glucose (Glutose) 15 gm Q15M PRN PO DECREASED GLUCOSE; Start 09/20/16 at 21:30 Glucose (Glutose) 22.5 gm Q15M PRN PO DECREASED GLUCOSE; Start 09/20/16 at 21: 30 Dextrose (D50w Syringe) 25 ml Q15M PRN IV DECREASED GLUCOSE; Start 09/20/16 at 21:30 Dextrose (D50w Syringe) 50 ml Q15M PRN IV DECREASED GLUCOSE; Start 09/20/16 at 21:30 Glucagon (Glucagen) 1 mg Q15M PRN IM DECREASED GLUCOSE; Start 09/20/16 at 21:30 Glucose (Glutose) 15 gm Q15M PRN BUCCAL DECREASED GLUCOSE; Start 09/20/16 at 21 :30 Miscellaneous Information 1 ea NOTE XX ; Start 09/20/16 at 22:00 Glucose (Glutose) 15 gm Q15M PRN PO DECREASED GLUCOSE; Start 09/20/16 at 22:00 Glucose (Glutose) 22.5 gm Q15M PRN PO DECREASED GLUCOSE; Start 09/20/16 at 22: 00 Dextrose (D50w Syringe) 25 ml Q15M PRN IV DECREASED GLUCOSE; Start 09/20/16 at 22:00 Dextrose (D50w Syringe) 50 ml Q15M PRN IV DECREASED GLUCOSE; Start 09/20/16 at 22:00 Glucagon (Glucagen) 1 mg Q15M PRN IM DECREASED GLUCOSE; Start 09/20/16 at 22:00 Glucose (Glutose) 15 gm Q15M PRN BUCCAL DECREASED GLUCOSE; Start 09/20/16 at 22 :00 MARTINEZ ODOM MD Sep 22, 2016 15:30
--- NOTE | 2016-09-22 16:18 | PDOCDIS ---
Discharge Instructions CONDITION Patient Condition: Stable HOME CARE INSTRUCTIONS: Diet Instructions: Low Fat /Cholesterol ACTIVITY: Activity Restrictions: Slowly Increase Activity FOLLOW UP/APPOINTMENTS Appointments f/u own pcp [address] glaser 1 wk see cardiology at [facility] [place] 1 wk CARLOS MARTINEZ MD Sep 22, 2016 16:18
[2016-09-22] MEDS ORDERED: ATOR80TA75 PO (16:22)
[2016-09-22] MEDS ORDERED: DOCU-216 PO (16:22)
[2016-09-22] MEDS ORDERED: BISA5TAB6 PO (16:22)
[2016-09-22] MEDS ORDERED: ISOS20TA19 PO (16:22)
[2016-09-22] MEDS ORDERED: DIGO125T PO (16:22)
--- NOTE | 2016-09-22 17:29 | PN ---
Date/Time of Note Date/Time of Note DATE: 09/22/16 TIME: 17:27 Assessment/Plan VTE Prophylaxis VTE Prophylaxis Intervention: other Lines/Catheters IV [facility] Type [facility]from [facility] Urinary Cath still in place: No Assessment/Plan Chief Complaint/Hosp Course IMPRESSION: 1. Angina. 2. ihd 3. Hypertension. 4. Diabetes mellitus. 5. Systolic heart failure. 6. Low ejection fraction. 7. Cardiomyopathy. 8. Dyslipidemia. 9. Deconditioning. 10. Awaiting for cardiac tranplant 11. History of diabetes mellitus. plan per cardio Problems: Subjective 24 Hr Interval Summary Subjective hx not possible: other Respiratory: no complaints Cardiovascular: no complaints Exam/Review of Systems Vital Signs Vitals Vital Signs Date Time Temp Pulse Resp B/P Pulse Ox O2 Delivery O2 Flow Rate FiO2 09/22/16 16:25 60 09/22/16 15:47 98.3 20 118/47 96 09/19/16 20:00 Room Air 09/18/16 17:25 2 Intake and Output 09/21/16 09/21/16 09/22/16 15:00 23:00 07:00 Intake Total 1060 ml Balance 1060 ml Exam Neck: supple Respiratory: clear to auscultation Cardiovascular: regular rate and rhythm Gastrointestinal: soft Musculoskeletal: nl extremities to inspection Results Result Diagram: 09/21/1660009/21/16 06 Results 24 hrs Laboratory Tests Test 09/21/16 20:17 09/22/16 01:23 09/22/16 08:10 09/22/16 12:04 Bedside Glucose 273 H 177 153 138 Medications Medications Current Medications Alprazolam (Xanax) 0.5 mg Q8 PO Last administered on 09/22/16 12:21; Admin Dose 0.5 MG; Start 09/19/16 at 06:00 Amlodipine Besylate (Norvasc) 5 mg DAILY PO Last administered on 09/22/16 10: 00; Admin Dose 5 MG; Start 09/19/16 at 09:00 Aspirin (Aspirin) 81 mg DAILY PO Last administered on 09/22/16 09:59; Admin Dose 81 MG; Start 09/19/16 at 09:00 Baclofen (Lioresal) 10 mg BID PO Last administered on 09/22/16 10:00; Admin Dose 10 MG; Start 09/19/16 at 09:00 Carvedilol (Coreg) 12.5 mg BID PO Last administered on 09/22/16 09:59; Admin Dose 12.5 MG; Start 09/19/16 at 09:00 Clopidogrel Bisulfate (plaVIX) 75 mg DAILY PO Last administered on 09/22/16 09 :59; Admin Dose 75 MG; Start 09/19/16 at 09:00 Cyanocobalamin (Vitamin B12) 1,000 mcg DAILY PO Last administered on 09/22/16 10:00; Admin Dose 1,000 MCG; Start 09/19/16 at 09:00 Losartan Potassium (Cozaar) 50 mg Q12 PO Last administered on 09/22/16 09:59; Admin Dose 50 MG; Start 09/19/16 at 09:00 Meclizine HCl (Antivert) 25 mg TID PRN PO VERTIGO; Start 09/18/16 at 23:30 Morphine Sulfate (Ms Contin (Er)) 15 mg Q6 PO Last administered on 09/22/16 12 :22; Admin Dose 15 MG; Start 09/19/16 at 00:00 Pantoprazole (Protonix Tab) 40 mg DAILY@06 PO Last administered on 09/22/16 05 :55; Admin Dose 40 MG; Start 09/19/16 at 06:00 Ranolazine (Ranexa) 1,000 mg Q12 PO Last administered on 09/22/16 09:59; Admin Dose 1,000 MG; Start 09/19/16 at 09:00 Ondansetron HCl (Zofran Inj) 4 mg Q6H PRN IV NAUSEA AND/OR VOMITING; Start at 23:30 Acetaminophen (Tylenol Tab) 650 mg Q6H PRN PO PAIN LEVEL 1-3 OR FEVER Last administered on 09/19/16 16:46; Admin Dose 650 MG; Start 09/18/16 at 23:30 Acetaminophen (Tylenol Supp) 650 mg Q6H PRN IN PAIN LEVEL 1-3 OR FEVER; Start 09/18/16 at 23:30 Docusate Sodium (Colace) 100 mg Q12H PRN PO CONSTIPATION; Start 09/18/16 at 23: 30 Magnesium Hydroxide (Milk Of Mag) 30 ml DAILY PRN PO CONSTIPATION; Start at 23:30 Bisacodyl (Dulcolax) 5 mg DAILY PRN PO CONSTIPATION; Start 09/18/16 at 23:30 Enoxaparin Sodium (Lovenox) 40 mg DAILY SC Last administered on 09/22/16 10:08 ; Admin Dose 40 MG; Start 09/19/16 at 09:00 Miscellaneous Information 1 ea NOTE XX ; Start 09/19/16 at 07:30 Isosorbide Dinitrate (Isordil) 40 mg TID PO Last administered on 09/22/16 12: 21; Admin Dose 40 MG; Start 09/19/16 at 13:00 Digoxin (Digoxin) 0.125 mg DAILY@13 PO Last administered on 09/22/16 12:21; Admin Dose 0.125 MG; Start 09/21/16 at 13:00 Atorvastatin Calcium (Lipitor) 80 mg HS PO Last administered on 09/21/16 20:19 ; Admin Dose 80 MG; Start 09/20/16 at 21:00 Morphine Sulfate (morphine) 1 mg Q4H PRN IV SEDATION Last administered on 15:02; Admin Dose 1 MG; Start 09/20/16 at 16:30 Insulin Glargine (Lantus) 20 unit DAILY@20 SC Last administered on 09/21/16 20 :31; Admin Dose 20 UNIT; Start 09/21/16 at 20:00 Diagnostic Test (Pha) (Accu-Chek) 1 ea 02 XX Last administered on 09/22/16 02: 04; Admin Dose 1 EA; Start 09/21/16 at 02:00 Miscellaneous Information 1 ea NOTE XX ; Start 09/20/16 at 21:30 Glucose (Glutose) 15 gm Q15M PRN PO DECREASED GLUCOSE; Start 09/20/16 at 21:30 Glucose (Glutose) 22.5 gm Q15M PRN PO DECREASED GLUCOSE; Start 09/20/16 at 21: 30 Dextrose (D50w Syringe) 25 ml Q15M PRN IV DECREASED GLUCOSE; Start 09/20/16 at 21:30 Dextrose (D50w Syringe) 50 ml Q15M PRN IV DECREASED GLUCOSE; Start 09/20/16 at 21:30 Glucagon (Glucagen) 1 mg Q15M PRN IM DECREASED GLUCOSE; Start 09/20/16 at 21:30 Glucose (Glutose) 15 gm Q15M PRN BUCCAL DECREASED GLUCOSE; Start 09/20/16 at 21 :30 Miscellaneous Information 1 ea NOTE XX ; Start 09/20/16 at 22:00 Glucose (Glutose) 15 gm Q15M PRN PO DECREASED GLUCOSE; Start 09/20/16 at 22:00 Glucose (Glutose) 22.5 gm Q15M PRN PO DECREASED GLUCOSE; Start 09/20/16 at 22: 00 Dextrose (D50w Syringe) 25 ml Q15M PRN IV DECREASED GLUCOSE; Start 09/20/16 at 22:00 Dextrose (D50w Syringe) 50 ml Q15M PRN IV DECREASED GLUCOSE; Start 09/20/16 at 22:00 Glucagon (Glucagen) 1 mg Q15M PRN IM DECREASED GLUCOSE; Start 09/20/16 at 22:00 Glucose (Glutose) 15 gm Q15M PRN BUCCAL DECREASED GLUCOSE; Start 09/20/16 at 22 :00 CARLOS MARTINEZ MD Sep 22, 2016 17:29
[2016-09-22] MEDS: INSULIN GLARGINE [LANtus] 3 ML PEN SC SCH (20:00)
== END 2016-09-22 21:00 | disposition home or self-care (01) | DRG 303 ==
LOC: E/R 16:12 → TEL 22:25
PROVIDERS: ADMIT Internal Medicine Nephrology; ATTEND Internal Medicine Nephrology
DX: I25.709 Atherosclerosis of coronary artery bypass graft(s), unspecified, with unspecified angina pectoris (principal); I42.9 Cardiomyopathy, unspecified; Z76.82 Awaiting organ transplant status; I11.0 Hypertensive heart disease with heart failure; I50.20 Unspecified systolic (congestive) heart failure; I65.21 Occlusion and stenosis of right carotid artery; E78.5 Hyperlipidemia, unspecified; F01.50 Vascular dementia, unspecified severity, without behavioral disturbance, psychotic disturbance, mood disturbance, and anxiety; G40.909 Epilepsy, unspecified, not intractable, without status epilepticus; D64.9 Anemia, unspecified; E11.65 Type 2 diabetes mellitus with hyperglycemia; Z79.4 Long term (current) use of insulin; Z79.82 Long term (current) use of aspirin; Z79.02 Long term (current) use of antithrombotics/antiplatelets; Z79.84 Long term (current) use of oral hypoglycemic drugs; Z95.1 Presence of aortocoronary bypass graft; Z95.5 Presence of coronary angioplasty implant and graft; Z95.810 Presence of automatic (implantable) cardiac defibrillator
CPT/HCPCS: 36415; 71010; 80048; 80061; 82550; 82553; 82962; 84484; 85025; 93005; 96374; 96375; 96376; J1170; J1650; J1815; J2060; J2270; J2405

== ENCOUNTER 2016-10-16 01:21 | Inpatient (IN) | payer OTHER ==
[~2016-10-16] VITALS: Ht 167.6 cm; Wt 77.9 kg
[2016-10-16] VITALS (13 sets, daily range): BP systolic 101–161; BP diastolic 56–82; PULSE 60–79; RESP 16–20; TEMP 98.9; Ht 167.6 cm; Wt 77.9 kg
[~2016-10-16 01:21] MED LIST changes: -ATOR40TA68 PO; +ATOR80TA75 PO; +BISA5TAB6 PO; +DIGO125T PO; +DOCU-216 PO; -GABA300C16 PO; -ISOS10TA2 PO; +ISOS20TA19 PO; -ISOS60TA PO; -MORP15TA3 PO; -OMEG-135 PO; -PHEN300C2 PO; +RANO10002 PO; -RANO500T2 PO
[2016-10-16] MEDS ORDERED: ONDANSETRON 4 MG INJ IV STA (01:37)
[2016-10-16] MEDS ORDERED: morphine 4 MG/ML VIAL IV STA (01:37)
[2016-10-16 02:10] LABS: ADD SCAN DIFF NO
--- NOTE | 2016-10-16 02:10 | RADRPT ---
PROCEDURE: XR Chest. CLINICAL INDICATION: Chest Pain. TECHNIQUE: Single frontal view of the chest. COMPARISON: 08/15/2016. FINDINGS: Left anterior chest wall dual chamber cardiac pacer again seen, without significant change. Cardiom egaly. Atherosclerotic calcifications in the thoracic aorta. Mild bibasilar atelectasis versus air space disease. No signs of pleural fluid or pneumothorax are seen. The osseous structures and soft tissues are unremarkable. IMPRESSION: Mild failure. RPTAT: [facility] Physician Andrei Date Time Electronically viewed and signed by Physician Andrei on 10/16/2016 02:10 RS/
[2016-10-16 02:18] LABS: BASOPHILS % 0.6 % (0.0-2.0); EOSINOPHILS # 0.2 10^3/ul (0.0-0.5); EOSINOPHILS % 2.3 % (0.0-7.0); HEMATOCRIT 35.2 % (42.0-52.0); HEMOGLOBIN 11.6 g/dl (14.0-18.0); LYMPHOCYTES # 2.3 10^3/ul (0.8-2.9); LYMPHOCYTES % 32.8 % (15.0-51.0); MEAN CORPUSCULAR HEMOGLOBIN 28.7 pg (29.0-33.0); MEAN CORPUSCULAR VOLUME 87.1 fl (82.0-101.0); MEAN PLATELET VOLUME 10.2 fl (7.4-10.4); MONOCYTE # 0.6 10^3/ul (0.3-0.9); MONOCYTES % 8.9 % (0.0-11.0); NEUTROPHIL # 3.9 10^3/ul (1.6-7.5); NEUTROPHILS % 55.1 % (39.0-77.0); PLATELET COUNT 193 10^3/UL (140-415); RED BLOOD COUNT 4.04 10^6/ul (4.70-6.10); RED CELL DISTRIBUTION WIDTH 14.3 % (11.5-14.5); WHITE BLOOD COUNT 7.1 10^3/ul (4.8-10.8)
[2016-10-16 02:30] LABS: ALBUMIN 4.2 g/dl (3.3-4.9); CHLORIDE 100 mmol/L (97-110); INR 1.01; POTASSIUM 3.8 mmol/L (3.5-5.1); PROTIME 13.3 Sec (12.2-14.2); SODIUM 140 mmol/L (135-144)
[2016-10-16 02:31] LABS: PARTIAL THROMBOPLASTIN TIME 26.4 Sec (25.0-35.0)
[2016-10-16 02:32] LABS: CREATININE 0.68 mg/dl (0.61-1.24)
[2016-10-16 02:33] LABS: ALANINE AMINOTRANSFERASE 27 IU/L (13-69); ALBUMIN/GLOBULIN RATIO 1.35; ALKALINE PHOSPHATASE 56 IU/L (42-121); ANION GAP 20 (8-16); ASPARTATE AMINO TRANSFERASE 15 IU/L (15-46); BILIRUBIN,INDIRECT 0.1 mg/dl (0-1.1); BILIRUBIN,TOTAL 0.1 mg/dl (0.2-1.3); BLOOD UREA NITROGEN 20 mg/dl (7-20); CALCIUM 9.6 mg/dl (8.4-10.2); CARBON DIOXIDE 24 mmol/L (21-31); GLUCOSE 200 mg/dl (70-220); TOTAL PROTEIN 7.3 g/dl (6.1-8.1)
[2016-10-16 02:41] LABS: B-TYPE NATRIURETIC PEPTIDE 1300 PG/ML (0-125)
[2016-10-16 02:46] LABS: TROPONIN-I < 0.012 ng/ml (0.00-0.12)
[2016-10-16] MEDS ORDERED: HYDROmorphONE 1 MG/ML SYG IV STA (02:56)
--- NOTE | 2016-10-16 02:56 | ERA ---
ER Documentation Chief Complaint Date/Time DATE: 10/16/16 TIME: 02:55 Chief Complaint CHEST PAIN OVER 24 HRS, N/V; HOME NITRO DIDN'T HELP. CARDIAC HX. HPI This is a 56 mg a chest pain on and off for the past 24 hours with associated nausea and diaphoresis. No vomiting. Took nitro at home with no relief. He has a history of cardiac disease. Pain is mild to moderate intensity, substernal, left-sided with no exacerbating or alleviating factors. Radiates to the left arm. ROS All systems reviewed and are negative except as per history of present illness. Medications Home Meds Active Scripts Docusate Sodium (Dok) 100 Mg Capsule, 100 MG PO Q12H Y for CONSTIPATION for 28 Days, CAP Prov:CARLOS MARTINEZ MD 09/22/16 Bisacodyl* (Bisacodyl*) 5 Mg Tablet.dr, 5 MG PO DAILY Y for CONSTIPATION for 28 Days Prov:CARLOS MARTINEZ MD 09/22/16 Isosorbide Dinitrate* (Isosorbide Dinitrate*) 20 Mg Tablet, 40 MG PO TID for 30 Days, TAB Prov:CARLOS MARTINEZ MD 09/22/16 Digoxin* (Digitek*) 125 Mcg Tablet, 0.125 MG PO DAILY@13 for 14 Days, TAB Prov:CARLOS MARTINEZ MD 09/22/16 Atorvastatin* (Atorvastatin*) 80 Mg Tablet, 80 MG PO HS for 14 Days, TAB Prov:CARLOS MARTINEZ MD 09/22/16 Losartan Potassium* (Cozaar*) 50 Mg Tab, 50 MG PO Q12, #60 TAB Prov:ALIZA CUENCA MD 12/22/14 Reported Medications Ranolazine* (Ranexa*) 1,000 Mg Tab.sr.12h, 1000 MG PO Q12, TAB 09/18/16 Pantoprazole* (Pantoprazole*) 40 Mg Tablet.dr, 40 MG PO DAILY, TAB 09/18/16 Nitroglycerin* (Nitrostat*) Unknown Strength Tab.subl, 1 TAB.SL SL Q5MIN Y for CHEST PAIN, BOTTLE 09/18/16 Morphine Sulfate* (Ms Contin*) 15 Mg Tablet.sa, 15 MG PO Q6, TAB 09/18/16 Metformin Hcl* (Metformin Hcl*) 1,000 Mg Tablet, 1000 MG PO WITH BREAKFAST DINNE , #60 TAB 09/18/16 Aspirin* (Aspirin* Chew) 81 Mg Tab.chew, 81 MG PO DAILY, TAB.CHEW 07/16/16 Insulin Aspart (Novolog FlexPen) 100 Unit/1 Ml Insuln.pen, 0 SC SLIDING SCALE ACHS, EA 07/16/16 Cyanocobalamin* (Vitamin B-12*) 1,000 Mcg Tablet.sa, 1000 MCG PO DAILY, TAB 06/16/16 Baclofen* (Baclofen*) 10 Mg Tablet, 10 MG PO BID, TAB 06/16/16 Furosemide* (Furosemide*) 40 Mg Tablet, 40 MG PO BID, TAB 05/18/14 Alprazolam* (Alprazolam*) 0.5 Mg Tablet, 0.5 MG PO Q8 for ANXIETY, TAB 05/18/14 Clopidogrel Bisulfate (Clopidogrel) 75 Mg Tablet, 75 MG PO DAILY, TAB 04/26/14 Meclizine Hcl* (Meclizine Hcl*) 25 Mg Tablet, 25 MG PO TID Y for VERTIGO, TAB 04/26/14 Carvedilol* (Carvedilol*) 12.5 Mg Tablet, 12.5 MG PO BID, TAB 04/26/14 Amlodipine Besylate* (Amlodipine Besylate*) 5 Mg Tablet, 5 MG PO DAILY, TAB 04/26/14 Insulin Isophan/Regular (Humulin 70/30) 100 Units/Ml Susp, 15 UNIT SC AM, EA 04/26/14 Allergies Allergies: Coded Allergies: sumatriptan (Unverified Allergy, Unknown, 10/16/16) sumatriptan succinate (Unverified Allergy, Unknown, 10/16/16) venlafaxine HCl (Unverified Allergy, Unknown, 10/16/16) PMhx/Soc History of Surgery: Yes (Pacemaker placement, CABG) Anesthesia Reaction: No Hx Neurological Disorder: Yes (CVA) Hx Respiratory Disorders: No Hx Cardiac Disorders: Yes (CABG, HTN, Dyslipidemia, CAD) Hx Psychiatric Problems: No Hx Miscellaneous Medical Probl: No Hx Alcohol Use: No Hx Substance Use: No Hx Tobacco Use: No Smoking Status: Never smoker Physical Exam Vitals Vital Signs Date Time Temp Pulse Resp B/P Pulse Ox O2 Delivery O2 Flow Rate FiO2 10/16/16 02:46 98.9 62 22 153/74 100 Room Air 10/16/16 01:40 Nasal Cannula 2 10/16/16 01:35 98.9 72 22 136/66 100 Room Air 10/16/16 01:33 98.9 71 22 136/66 100 Physical Exam Const: [] Head: Atraumatic Eyes: Normal Conjunctiva ENT: Normal External Ears, Nose and Mouth. Neck: Full range of motion..~ No meningismus. Resp: Clear to auscultation bilaterally Cardio: Regular rate and rhythm, no murmurs Abd: Soft, non tender, non distended. Normal bowel sounds Skin: No petechiae or rashes Back: No midline or flank tenderness Ext: No cyanosis, or edema Neur: Awake and alert Psych: Normal Mood and Affect Result Diagram: 10/16/16 0145 Results 24 hrs Laboratory Tests Test 10/16/16 01:45 Prothrombin Time 13.3Sec Prothrombin Time Ratio 1.0 INR International Normalized Ratio 1.01 Activated Partial Thromboplast Time 26.4Sec Sodium Level 140mmol/L Potassium Level 3.8mmol/L Chloride Level 100mmol/L Carbon Dioxide Level 24mmol/L Anion Gap 20 Blood Urea Nitrogen 20mg/dl Creatinine 0.68mg/dl Glucose Level 200mg/dl Calcium Level 9.6mg/dl Total Bilirubin 0.1mg/dl Direct Bilirubin 0.00mg/dl Indirect Bilirubin 0.1mg/dl Aspartate Amino Transf (AST/SGOT) 15IU/L Alanine Aminotransferase (ALT/SGPT) 27IU/L Alkaline Phosphatase 56IU/L Troponin I < 0.012ng/ml B-Type Natriuretic Peptide 1300PG/ML Total Protein 7.3g/dl Albumin 4.2g/dl Globulin 3.10g/dl Albumin/Globulin Ratio 1.35 Current Medications Medications (Trade) Dose Ordered Sig/Cecil Route PRN Reason Start Time Stop Time Status Last Admin Dose Admin Morphine Sulfate (morphine) 4 mg ONCE STAT IV 10/16/16 01:37 10/16/16 01:38 DC 10/16/16 01:45 Ondansetron HCl (Zofran Inj) 4 mg ONCE STAT IV 10/16/16 01:37 10/16/16 01:38 DC 10/16/16 01:45 Nitroglycerin (Nitroglycerin 2% Oint) 1 inch ONCE ONCE TD 10/16/16 03:00 10/16/16 03:01 10/16/16 02:45 Procedures/MDM EKG: Rate/Rhythm: Normal Sinus Rhythm QRS, ST, T-waves: No changes consistent w/ acute ischemia Impression: No evidence of ischemia or arrhythmia Chest X-ray 1V Interpreted by me: Soft Tissue: No acute abnormalities Bones: No acute abnormalities Mediastinum/Cardiac Silhouette/Lungs: No acute abnormalities Patient's symptoms are concerning for cardiac cause will require inpatient workup and continuous monitoring. Further w/u for ischemia, arrhythmia, PE or dissection will be deferred to the inpatient team. Accepting Care Team: Current data and ongoing care discussed. Time: 3 am Primary Provider: Pete Consulting: [XOXOXO] Outstanding Data: none Departure Diagnosis: Primary Impression: Chest pain Qualified Code: I20.0 - Unstable angina pectoris Condition: Serious RACHEL AZUL October 16, 2016 02:56
[2016-10-16] MEDS ORDERED: ATOR40TA68 PO (02:59)
[2016-10-16] MEDS ORDERED: FURO40TA4 PO (02:59)
[2016-10-16] MEDS ORDERED: GLIM1TAB2 PO (02:59)
[2016-10-16] MEDS ORDERED: NOVO7030 SC ×3 (02:59→04:14)
[2016-10-16] MEDS ORDERED: GABA100C14 PO (02:59)
[2016-10-16] MEDS ORDERED: HYDR2TAB3 PO (02:59)
[2016-10-16] MEDS ORDERED: NITROGLYCERIN 2% 1 GM OINT PKT TD ONE (03:00)
[2016-10-16] MEDS ORDERED: ISOS30TA5 PO (03:04)
[2016-10-16] MEDS ORDERED: ZOLP10TA5 PO (03:20)
[2016-10-16] MEDS ORDERED: PHEN100C PO (03:20)
[2016-10-16] MEDS ORDERED: POTA10TA97 PO (03:20)
[2016-10-16] MEDS ORDERED: NIT4 SL (03:20)
[2016-10-16] MEDS ORDERED: LORAZEPAM 2 MG INJ IV ONE (04:00)
[2016-10-16] MEDS ORDERED: ACETAMINOPHEN 325 MG TAB PO PRN (05:00)
[2016-10-16] MEDS ORDERED: GLUCAGON 1 MG INJ IM PRN (05:15)
[2016-10-16] MEDS ORDERED: GLUCOSE GEL 15 GRAM TUBE PO PRN ×2 (05:15)
[2016-10-16] MEDS ORDERED: GLUCOSE GEL 15 GRAM TUBE BUCCAL PRN (05:15)
[2016-10-16] MEDS ORDERED: DEXTROSE 50% 50 ML SYRINGE IV PRN ×2 (05:15)
[2016-10-16] MEDS: HYDROmorphONE 1 MG/ML SYG IV PRN ×5 (05:37→23:21)
[2016-10-16] MEDS: PANTOPRAZOLE (EC) 40 MG TAB PO SCH (05:41)
[2016-10-16] MEDS: FUROSEMIDE 40 MG TAB PO SCH (05:41)
[2016-10-16] MEDS: morphine (ER) 15 MG TAB PO SCH ×4 (05:42→23:29)
[2016-10-16] MEDS ORDERED: morphine (ER) 15 MG TAB PO SCH (06:00)
[2016-10-16] MEDS: ALPRAZOLAM 0.25 MG TAB PO SCH ×3 (06:29→20:12)
[2016-10-16] MEDS: INSULIN ASPART [NOVOLOG] 3 ML PEN SC SCH ×7 (07:50→20:05)
[2016-10-16 07:59] LABS: CHOL/HDL RATIO 3.9 RATIO
[2016-10-16] MEDS: BACLOFEN 10 MG TAB PO SCH ×2 (08:13→20:10)
[2016-10-16] MEDS: ASPIRIN 81 MG TAB PO SCH (08:13)
[2016-10-16] MEDS: GABAPENTIN 100 MG CAP PO SCH ×3 (08:13→20:10)
[2016-10-16] MEDS: CYANOCOBALAMIN 500 MCG TAB PO SCH (08:13)
[2016-10-16] MEDS: CLOPIDOGREL 75 MG TAB PO SCH (08:14)
[2016-10-16] MEDS: RANOLAZINE (SR) 500 MG TAB PO SCH ×2 (08:14→20:10)
[2016-10-16] MEDS: POTASSIUM CHLORIDE (SR) 10 MEQ TAB PO SCH (08:14)
[2016-10-16] MEDS: LOSARTAN 50 MG TAB PO SCH ×2 (08:16→20:11)
[2016-10-16] MEDS: AMLODIPINE 5 MG TAB PO SCH (08:16)
[2016-10-16] MEDS: ENOXAPARIN 40 MG/0.4 ML SYG SC SCH (08:19)
[2016-10-16] MEDS: INSULIN GLARGINE [LANtus] 3 ML PEN SC SCH (08:20)
[2016-10-16] MEDS ORDERED: ISOSORBIDE MONONITRATE(SR)30 MG TAB PO SCH (09:00)
[2016-10-16] MEDS: DIGOXIN 0.125 MG TAB PO SCH (13:15)
--- NOTE | 2016-10-16 13:22 | HP ---
DATE OF ADMISSION: 10/16/2016 HISTORY OF PRESENT ILLNESS: The patient is a 56-year-old male with extensive medical history includ ing diabetes, seizure disorder, coronary artery disease status post coronary artery bypass graft, hi story of severe systolic and diastolic congestive heart failure with ejection fraction of 35%, histo ry of AICD, hypertension, dyslipidemia, dementia. The patient is currently on the waiting list for a heart transplant at [facility]. PAST MEDICAL HISTORY: As stated above with history of status post coronary artery bypass grafting i n 2005, with old grafts occluded except for left internal mammary artery graft at the time of last c ardiac catheterization in July 2016, history of anemia, carotid stenosis and possible vascular d ementia. The patient developed chest pain last night, stated that he could not sleep due to severe chest pain that radiates to the left arm. Pain is moderate in intensity, substernal, left-sided. T he patient also complains of associated nausea and diaphoresis. In the emergency room, patient's tr oponin was less than 0.012. BNP was elevated to 1300. The patient denies any fever, denies chills. Denies abdominal pain. The patient is admitted for further evaluation and management to telemetry floor. PAST MEDICAL HISTORY: Per HPI. PAST SURGICAL HISTORY: Per HPI. FAMILY HISTORY: Noncontributory. SOCIAL HISTORY: Patient stated that he is a former smoker, stated that he quit 4 months ago. Patie nt denies any alcohol use, denies any illicit drug use. ALLERGIES: PATIENT IS ALLERGIC TO SUMATRIPTAN AND VENLAFAXINE. HOME MEDICATIONS: Include: 1. Colace. 2. Bisacodyl. 3. Imdur. 4. Digoxin. 5. Atorvastatin. 6. Cozaar 7. Ranexa 8. Protonix. 9. Nitroglycerin. 10. MS Contin 11. Metformin. 12. Aspirin. 13. NovoLog. 14. Vitamin B12. 15. Baclofen. 16. Furosemide. 17. Alprazolam. 18. Clopidogrel. 19. Meclizine. 20. Coreg. 21. Amlodipine. 22. Humulin 70/30. REVIEW OF SYSTEMS: a 12-point review of systems is negative unless what mentioned in the HPI. PHYSICAL ASSESSMENT GENERAL: Well-developed, well-nourished male, currently is awake, alert. VITAL SIGNS: Temperature is 97.7, pulse is 71, blood pressure 161/82, respiratory rate 20, oxygen s aturation 100% on 2 liters via nasal cannula. HEENT: Head is atraumatic, normocephalic. Pupils equal, round, reactive to light and accommodation . Oral mucosa is pink and moist. NECK: Supple. There is no lymphadenopathy, no thyromegaly. The patient has a healed scar at the b ase of the neck. CHEST: Lungs are clear bilaterally, slightly diminished at the bases. CARDIOVASCULAR: Normal S1, S2. No murmurs, gallops, clicks, rubs noted. ABDOMEN: Protuberant, soft, nondistended, nontender. Bowel sounds present. There is no guarding, no rebound tenderness. EXTREMITIES: Mild edema 1+. There is no cyanosis, no clubbing. Pulses equal bilaterally 2+. SKIN: There is no rash, petechiae noted. NEUROLOGIC: Patient is awake, alert and oriented x3; however, is a poor historian. There are no fo perri deficits noted. Motor strength 5/5 in all extremities. LABORATORY DATA: On admission, CBC: White blood cells 7.1, hemoglobin 11.6, hematocrit 35.2, plate lets 193. Chemistry: Sodium is 140, potassium 3.8, chloride 100, carbon dioxide 24, anion gap 20, BUN is 20, creatinine 0.68, glucose 200, AST 15, ALT 27, alkaline phosphatase 56. Troponin less anna n 0.012. BNP is 1300. ASSESSMENT AND PLAN: 1. Chest pain, rule out acute coronary syndrome. Will obtain troponins x3. Continue nitroglycerin and morphine and Imdur. Dr. Olsen is asked to see patient in cardiology consultation. Continue to monitor patient on telemetry floor. Continue supplemental oxygen. 2. Severe systolic and diastolic congestive heart failure with ejection fraction of 35% with acute on chronic. We will continue Lasix, monitor intake and output. 3. Coronary artery disease status post coronary artery bypass graft and status post angioplasty to the left anterior descending. 4. Cardiomyopathy. 5. Hypertension. 6. Hyperlipidemia. 7. Carotid stenosis. 8. Diabetes mellitus. 9. Possible vascular dementia. 10. Anemia. 11. Seizure disorder. We are going to resume the patient's home medication. Continue insulin and monitor blood sugar q.a. c. and at bedtime. We will continue Lovenox for deep venous thrombosis prophylaxis and Protonix for peptic ulcer disease prophylaxis. Further recommendations based on clinical course. Plan of care discussed with Dr. Wright. Dictated By: LIBRADO MORENO IMAGE SCIENTIST for [place] WRIGHT MD SR/NTS Conf#: [id number] DID#: [id number]
[2016-10-16] MEDS: PHENYTOIN 100 MG CAP PO SCH (20:10)
[2016-10-16] MEDS: ATORVASTATIN 80 MG TAB PO SCH (20:10)
[2016-10-16] MEDS: ISOSORBIDE DINITRATE 20 MG TAB PO SCH (21:00)
[2016-10-17] VITALS (13 sets, daily range): BP systolic 106–132; BP diastolic 53–74; PULSE 59–122; RESP 18–20
--- NOTE | 2016-10-17 00:43 | CONS ---
DATE OF ADMISSION: 10/16/2016 DATE OF CONSULTATION: 10/16/2016 TYPE OF CONSULTATION: Cardiology. REASON FOR CONSULTATION: Congestive heart failure exacerbation, chest pain. REQUESTING PHYSICIAN: Ky Alexander MD HISTORY OF PRESENT ILLNESS: Mr. Louis is a 56-year-old male with history of coronary artery dise ase, status post prior PTCA and stent placement, obtuse marginal November 2014, coronary artery bypass g raft surgery with patent KNOTT to LAD and all other grafts occluded by catheterization 07/12/2016 wit h diffuse disease in the distal LAD after insertion of the KNOTT graft. 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 Patient at this time is currently being evaluated for a cardiac catheterization at [facility] who is undergoing evaluation. The patient has had multiple recurrent admits to the hospital for refract ory chest pain and congestive heart failure. Upon presentation, temperature 98.9, blood pressure 136/66, pulse 71, respiratory rate 22, satting 1 00%. The patient's labs revealed white count 7.1, hemoglobin 11.6, platelet count 193. Sodium 140, potassium 3.8, creatinine 0.6, BUN 20, troponin negative. BNP of 1300, LDL 93, HDL 41. INR 1.0. The patient underwent a chest x-ray revealing mild failure. Patient's electrocardiogram revealed no rmal sinus rhythm, rate of 65, ____ deviation, lateral Q's, anteroseptal Q's, poor R-wave progressio n across the anterior precordial leads. The patient has been admitted to the floor and since admit to floor, the patient continues to compla in of chest pain. PAST MEDICAL HISTORY: As above in HPI. MEDICATIONS CURRENTLY IN HOSPITAL: 1. Lipitor 80 mg at bedtime. 2. Dilantin 20 mg at bedtime. 3. Digoxin 0.125 mg daily. 4. Norvasc 5 mg daily. 5. Aspirin 81 mg daily. 6. Carvedilol 12.5 mg p.o. b.i.d. 7. Plavix 75 mg daily. 8. Vitamin B12. 9. Neurontin 100 mg t.i.d. 10. Imdur 30 mg daily. 11. Cozaar 50 mg q.12h. 12. Potassium chloride. 13. Ranexa 1000 mg b.i.d. 14. ____ daily. 15. Insulin sliding scale. 16. Lantus insulin. 17. Xanax 0.5 mg p.o. q.8. 18. Lasix 40 mg p.o. daily. 19. Protonix 40 mg daily. 20. MS Contin 50 mg p.o. q.6h. 21. ____ p.r.n. 22. Sublingual nitroglycerin p.r.n. 23. Tylenol. 24. Dilaudid. ALLERGIES: 1. IMITREX. 2. VENLAFAXINE. SOCIAL HISTORY: No tobacco, ETOH or illicit drug use. FAMILY HISTORY: No history of sudden cardiac or early CAD. REVIEW OF SYSTEMS: As above in HPI. CONSTITUTIONAL: No fevers, chills. PULMONARY: No current shortness of breath. CARDIOVASCULAR: Positive chest pain. History of cardiomyopathy. GASTROINTESTINAL: No vomiting. GENITOURINARY: No hematuria. MUSCULOSKELETAL: Degenerative joint disease. PSYCHIATRIC: The patient denies depression. NEUROLOGIC: No documented history of CVA. PHYSICAL EXAMINATION VITAL SIGNS: Temperature 97.8, blood pressure ____ 109/56, pulse 60, respirations 16, temperature 9 7%. GENERAL: The patient is alert, awake, complaining of chest pain. NECK: ____. CHEST: Fair air movement throughout. HEART: Regular rate, rhythm. Normal S1, S2, I/ systolic murmur, nondisplaced PMI. ABDOMEN: Positive bowel sounds, soft. EXTREMITIES: No edema, 1+ pulses bilaterally, posterior tibial. LABORATORIES: As above in HPI, with most recent from today a second troponin returned negative. IMAGING STUDIES: As above in HPI. No further imaging studies for my review at this time. ECG: As above in HPI. No further electrocardiograms for my review at this time. IMPRESSION: 1. Chest pains/angina refractory to medical therapy at this time in a patient with known multivesse l obstructive coronary artery disease and status post prior stenting without significant change in s ymptoms. 2. Congestive heart failure exacerbation, systolic, acute on chronic. 3. Cardiomyopathy with decreased left ventricular ejection fraction last known to be approximately 15% by echo at [facility] July 2016, but 35% by echo read here June 2016. 4. Cardiomyopathy with decreased left ventricular ejection fraction as above, 15% by outside hospit al echo July 2016, 35% by echo June 2016 at [facility]. 5. Coronary artery disease, status post coronary bypass graft surgery with all ____ at last cathete rization except KNOTT July 2016. 6. Hypertension. 7. Diabetes mellitus. 8. Possible seizure disorder on medications. 9. Anemia, mild. RECOMMENDATIONS: 1. At this time, would maintain the patient on telemetry monitoring to follow rhythm and rate contr ol closely. 2. Would send an additional troponin to assure the patient has not had any coronary syndromes. 3. Continue the patient's current carvedilol for treatment of cardiomyopathy and blood pressures. 4. Continue the patient's Losartan afterload reduction. 5. Continue the patient's antianginal medication of Ranexa, Imdur and Norvasc at this time. 6. Continue the patient's digoxin for improvement in contractibility. 7. Continue the patient's Lasix but will change to b.i.d. dosing to ensure good volume status. 8. Ongoing pain control. 9. Will consider further increase in oral nitrates as blood pressure will allow. Thank you for allowing me to take part in the care of this patient. I will continue to follow along very closely with you. Further recommendations will be made as the patient progresses through his [facility] clinical course. Dictated By: NICHOL JACKSON/MOISES Conf#: [id number] DID#: [id number] CC: [place] ALEXANDER MD;*EndCC*
[2016-10-17] MEDS ORDERED: ACCU-CHEK XX SCH (02:00)
[2016-10-17] MEDS: ACCU-CHEK XX SCH (02:00)
[2016-10-17] MEDS: HYDROmorphONE 1 MG/ML SYG IV PRN ×3 (03:47→20:01)
[2016-10-17] MEDS: ALPRAZOLAM 0.25 MG TAB PO SCH ×3 (05:52→21:23)
[2016-10-17] MEDS: PANTOPRAZOLE (EC) 40 MG TAB PO SCH (05:52)
[2016-10-17] MEDS: FUROSEMIDE 40 MG TAB PO SCH (05:52)
[2016-10-17] MEDS: morphine (ER) 15 MG TAB PO SCH ×3 (05:54→17:16)
[2016-10-17 07:32] LABS: ADD SCAN DIFF NO
[2016-10-17 07:38] LABS: BASOPHIL # 0.1 10^3/ul (0.0-0.1); BASOPHILS % 0.8 % (0.0-2.0); EOSINOPHILS # 0.3 10^3/ul (0.0-0.5); EOSINOPHILS % 3.5 % (0.0-7.0); HEMATOCRIT 40.1 % (42.0-52.0); HEMOGLOBIN 13.1 g/dl (14.0-18.0); LYMPHOCYTES # 2.6 10^3/ul (0.8-2.9); LYMPHOCYTES % 33.9 % (15.0-51.0); MEAN CORPUSCULAR HEMOGLOBIN 28.7 pg (29.0-33.0); MEAN CORPUSCULAR HGB CONC 32.7 g/dl (32.0-37.0); MEAN CORPUSCULAR VOLUME 87.9 fl (82.0-101.0); MEAN PLATELET VOLUME 10.2 fl (7.4-10.4); MONOCYTES % 12.6 % (0.0-11.0); NEUTROPHIL # 3.8 10^3/ul (1.6-7.5); NEUTROPHILS % 48.7 % (39.0-77.0); PLATELET COUNT 190 10^3/UL (140-415); RED BLOOD COUNT 4.56 10^6/ul (4.70-6.10); RED CELL DISTRIBUTION WIDTH 14.6 % (11.5-14.5); WHITE BLOOD COUNT 7.8 10^3/ul (4.8-10.8)
[2016-10-17] MEDS: INSULIN GLARGINE [LANtus] 3 ML PEN SC SCH (07:49)
[2016-10-17] MEDS: INSULIN ASPART [NOVOLOG] 3 ML PEN SC SCH ×7 (07:49→21:26)
[2016-10-17] MEDS: LOSARTAN 50 MG TAB PO SCH ×2 (08:06→21:23)
[2016-10-17] MEDS: GABAPENTIN 100 MG CAP PO SCH ×3 (08:06→21:23)
[2016-10-17] MEDS: CLOPIDOGREL 75 MG TAB PO SCH (08:06)
[2016-10-17] MEDS: ASPIRIN 81 MG TAB PO SCH (08:06)
[2016-10-17] MEDS: RANOLAZINE (SR) 500 MG TAB PO SCH ×2 (08:06→21:23)
[2016-10-17 08:07] LABS: POTASSIUM 4.6 mmol/L (3.5-5.1)
[2016-10-17] MEDS: AMLODIPINE 5 MG TAB PO SCH (08:07)
[2016-10-17] MEDS: ISOSORBIDE DINITRATE 20 MG TAB PO SCH ×2 (08:07→12:28)
[2016-10-17] MEDS: POTASSIUM CHLORIDE (SR) 10 MEQ TAB PO SCH (08:07)
[2016-10-17] MEDS: CYANOCOBALAMIN 500 MCG TAB PO SCH (08:08)
[2016-10-17] MEDS: BACLOFEN 10 MG TAB PO SCH ×2 (08:08→21:23)
[2016-10-17 08:10] LABS: CREATININE 0.92 mg/dl (0.61-1.24)
[2016-10-17] MEDS: ENOXAPARIN 40 MG/0.4 ML SYG SC SCH (08:10)
[2016-10-17 08:11] LABS: CALCIUM 9.7 mg/dl (8.4-10.2)
[2016-10-17 08:52] LABS: CHOL/HDL RATIO 4.4 RATIO
[2016-10-17] MEDS: DIGOXIN 0.125 MG TAB PO SCH (12:29)
--- NOTE | 2016-10-17 17:07 | PN ---
Date/Time of Note Date/Time of Note DATE: 10/17/16 TIME: 17:01 Assessment/Plan VTE Prophylaxis VTE Prophylaxis Intervention: other Lines/Catheters IV Catheter Type (from Nrs): Saline Lock Urinary Cath still in place: No Assessment/Plan Assessment/Plan 1. Chest pain, rule out acute coronary syndrome. - per Dr. Olsen in cardiology consultation. Continue to monitor patient on telemetry floor. Continue supplemental oxygen. 2. Severe systolic and diastolic congestive heart failure with ejection fraction of 35% with acute on chronic. We will continue Lasix, monitor intake and output. 3. Coronary artery disease status post coronary artery bypass graft and status post angioplasty to the left anterior descending. 4. Cardiomyopathy. 5. Hypertension. 6. Hyperlipidemia. 7. Carotid stenosis. 8. Diabetes mellitus. - glycemic control 9. Possible vascular dementia. 10. Anemia. 11. Seizure disorder. - seizure precautions Dw Dr Wright/staff Subjective 24 Hr Interval Summary Constitutional: requiring IVF, requiring O2 Eyes: no complaints ENT: no complaints Respiratory: no complaints Cardiovascular: no complaints Gastrointestinal: no complaints Exam/Review of Systems Vital Signs Vitals Vital Signs Date Time Temp Pulse Resp B/P Pulse Ox O2 Delivery O2 Flow Rate FiO2 10/17/16 16:38 98.0 71 18 117/58 98 10/17/16 07:55 2.0 10/16/16 02:46 Room Air Intake and Output 10/16/16 10/16/16 10/17/16 15:00 23:00 07:00 Intake Total 1270 ml 120 ml Balance 1270 ml 120 ml Exam Constitutional: alert, well developed Psych: nl mood/affect Eyes: nl sclera ENMT: nl external ears & nose Neck: non-tender Respiratory: clear to auscultation Cardiovascular: nl pulses Gastrointestinal: non-tender, soft Musculoskeletal: nl extremities to inspection Extremities: edema (+1), normal pulses Neurological: nl mental status, nl speech Skin: nl turgor Lymph: nontender Results Result Diagram: 10/17/1658 10/17/1658 Results 24 hrs Laboratory Tests Test 10/16/16 17:16 10/16/16 19:38 10/17/16 06:58 10/17/16 07:44 Bedside Glucose 178 133 160 White Blood Count 7.8 Red Blood Count 4.56 L Hemoglobin 13.1 L Hematocrit 40.1 L Mean Corpuscular Volume 87.9 Mean Corpuscular Hemoglobin 28.7 L Mean Corpuscular Hemoglobin Concent 32.7 Red Cell Distribution Width 14.6 H Platelet Count 190 Mean Platelet Volume 10.2 Neutrophils % 48.7 Lymphocytes % 33.9 Monocytes % 12.6 H Eosinophils % 3.5 Basophils % 0.8 Nucleated Red Blood Cells % 0.0 Neutrophils # 3.8 Lymphocytes # 2.6 Monocytes # 1.0 H Eosinophils # 0.3 Basophils # 0.1 Nucleated Red Blood Cells # 0.0 Sodium Level 141 Potassium Level 4.6 Chloride Level 99 Carbon Dioxide Level 26 Anion Gap 21 H Blood Urea Nitrogen 22 H Creatinine 0.92 Glucose Level 147 # Calcium Level 9.7 Triglycerides Level 222 H Cholesterol Level 192 LDL Cholesterol, Calculated 105 HDL Cholesterol 43 Cholesterol/HDL Ratio 4.4 Test 10/17/16 11:37 Bedside Glucose 149 Medications Medications Current Medications Alprazolam (Xanax) 0.5 mg Q8 PO Last administered on 10/17/16 14:02; Admin Dose 0.5 MG; Start 10/16/16 at 06:00 Amlodipine Besylate (Norvasc) 5 mg DAILY PO Last administered on 10/17/16 08: 07; Admin Dose 5 MG; Start 10/16/16 at 09:00 Aspirin (Aspirin) 81 mg DAILY PO Last administered on 10/17/16 08:06; Admin Dose 81 MG; Start 10/16/16 at 09:00 Atorvastatin Calcium (Lipitor) 80 mg HS PO Last administered on 10/16/16 20:10 ; Admin Dose 80 MG; Start 10/16/16 at 21:00 Baclofen (Lioresal) 10 mg BID PO Last administered on 10/17/16 08:08; Admin Dose 10 MG; Start 10/16/16 at 09:00 Carvedilol (Coreg) 12.5 mg BID PO Last administered on 10/17/16 08:08; Admin Dose 12.5 MG; Start 10/16/16 at 09:00 Clopidogrel Bisulfate (plaVIX) 75 mg DAILY PO Last administered on 10/17/16 08 :06; Admin Dose 75 MG; Start 10/16/16 at 09:00 Cyanocobalamin (Vitamin B12) 1,000 mcg DAILY PO Last administered on 10/17/16 08:08; Admin Dose 1,000 MCG; Start 10/16/16 at 09:00 Digoxin (Digoxin) 0.125 mg DAILY@13 PO Last administered on 10/17/16 12:29; Admin Dose 0.125 MG; Start 10/16/16 at 13:00 Docusate Sodium (Colace) 100 mg Q12H PRN PO CONSTIPATION; Start 10/16/16 at 05: 00 Furosemide (Lasix) 40 mg DAILY@06 PO Last administered on 10/17/16 05:52; Admin Dose 40 MG; Start 10/16/16 at 06:00 Gabapentin (Neurontin) 100 mg TID PO Last administered on 10/17/16 12:29; Admin Dose 100 MG; Start 10/16/16 at 09:00 Losartan Potassium (Cozaar) 50 mg Q12 PO Last administered on 10/17/16 08:06; Admin Dose 50 MG; Start 10/16/16 at 09:00 Nitroglycerin (Nitroglycerin (Sl Tab) 0.4 Mg) 1 tab [id number] PRN SL CHEST PAIN ; Start 10/16/16 at 05:00 Pantoprazole (Protonix Tab) 40 mg DAILY@06 PO Last administered on 10/17/16 05 :52; Admin Dose 40 MG; Start 10/16/16 at 06:00 Phenytoin (Dilantin) 300 mg HS PO Last administered on 10/16/16 20:10; Admin Dose 300 MG; Start 10/16/16 at 21:00 Potassium Chloride (Klor-Con 10) 10 meq DAILY PO Last administered on 08:07; Admin Dose 10 MEQ; Start 10/16/16 at 09:00 Ranolazine (Ranexa) 1,000 mg BID PO Last administered on 10/17/16 08:06; Admin Dose 1,000 MG; Start 10/16/16 at 09:00 Zolpidem Tartrate (Ambien) 10 mg QHS PRN PO INSOMNIA; Start 10/16/16 at 05:00 Insulin Glargine (Lantus) 25 unit DAILY@08 SC Last administered on 10/17/16 07 :49; Admin Dose 25 UNIT; Start 10/16/16 at 08:00 Diagnostic Test (Pha) (Accu-Chek) 1 ea 02 XX ; Start 10/17/16 at 02:00 Acetaminophen (Tylenol Tab) 650 mg Q4H PRN PO PAIN AND OR ELEVATED TEMP; Start 10/16/16 at 05:00 Enoxaparin Sodium (Lovenox) 40 mg DAILY SC Last administered on 10/17/16 08:10 ; Admin Dose 40 MG; Start 10/16/16 at 09:00 Hydromorphone HCl (Dilaudid) 1 mg Q4H PRN IV PAIN Last administered on 07:51; Admin Dose 1 MG; Start 10/16/16 at 05:00 Miscellaneous Information 1 ea NOTE XX ; Start 10/16/16 at 05:15 Glucose (Glutose) 15 gm Q15M PRN PO DECREASED GLUCOSE; Start 10/16/16 at 05:15 Glucose (Glutose) 22.5 gm Q15M PRN PO DECREASED GLUCOSE; Start 10/16/16 at 05: 15 Dextrose (D50w Syringe) 25 ml Q15M PRN IV DECREASED GLUCOSE; Start 10/16/16 at 05:15 Dextrose (D50w Syringe) 50 ml Q15M PRN IV DECREASED GLUCOSE; Start 10/16/16 at 05:15 Glucagon (Glucagen) 1 mg Q15M PRN IM DECREASED GLUCOSE; Start 10/16/16 at 05:15 Glucose (Glutose) 15 gm Q15M PRN BUCCAL DECREASED GLUCOSE; Start 10/16/16 at 05 :15 Morphine Sulfate (Ms Contin (Er)) 15 mg Q6 PO Last administered on 10/17/16 05 :54; Admin Dose 15 MG; Start 10/16/16 at 06:00 Isosorbide Dinitrate (Isordil) 20 mg TID PO ; Start 10/16/16 at 21:00 AGA BARNETT October 17, 2016 17:07
--- NOTE | 2016-10-17 20:29 | CONS ---
Date/Time of Note Date/Time of Note DATE: 10/17/16 TIME: 20:22 Assessment/Plan Assessment/Plan Chief Complaint/Hosp Course IMPRESSION: 1. Chest pains/angina refractory to medical therapy at this time in a patient with known multivessel obstructive coronary artery disease and status post prior stenting without significant change in symptoms.-trop neg x 3 this admit 2. Congestive heart failure exacerbation, systolic, acute on chronic. 3. Cardiomyopathy with decreased left ventricular ejection fraction last known to be approximately 15% by echo at [facility] July 2016, but 35% by echo read here June 2016. 4. Coronary artery disease, status post coronary bypass graft surgery with all grafts occluded at last catheterization except KNOTT July 2016. 5. Hypertension. 6. Diabetes mellitus. 7. Possible seizure disorder on medications. 8. Anemia, mild. Recc: -Tele -serial ecg's -Continue coreg/losartan -Continue norvasc/isordil as tolerated and thus will make slight decrease in dose to allow him to tolerate better -Continue asa/plavix Problems: Consultation Date/Type/Reason Admit Date/Time October 16, 2016 at 02:54 Initial Consult Date 10/16/2016 Type of Consultation: Cardiology Reason for Consultation CP Referring Provider: [place] ALEXANDER MD Exam/Review of Systems Vital Signs Vitals Vital Signs Date Time Temp Pulse Resp B/P Pulse Ox O2 Delivery O2 Flow Rate FiO2 10/17/16 19:59 98.1 60 20 132/63 97 10/17/16 07:55 2.0 10/16/16 02:46 Room Air Intake and Output 10/16/16 10/16/16 10/17/16 15:00 23:00 07:00 Intake Total 1270 ml 120 ml Balance 1270 ml 120 ml Exam Review of Systems: CONSTITUTIONAL: No fevers, chills. PULMONARY: No sob CARDIOVASCULAR: No chest pain/palpitations GASTROINTESTINAL: No nausea/vomiting. GENITOURINARY: No hematuria/dysuria. MUSCULOSKELETAL: No myagias/arthalgias. PSYCHIATRIC: The patient denies depression. NEUROLOGIC: lethargic Constitutional: alert Psych: no complaints ENMT: mucosa pink and moist Neck: jvd (9 cm water), supple Respiratory: diminished breath sounds (at bases/B) Cardiovascular: regular rate and rhythm Gastrointestinal: non-tender, soft Musculoskeletal: muscle tone (normal) Extremities: edema (none) Neurological: other (No focal deficits) Results Result Diagram: 10/17/16 0658 10/17/16 0658 Results 24 hrs Laboratory Tests Test 10/17/16 06:58 10/17/16 07:44 10/17/16 11:37 10/17/16 17:06 White Blood Count 7.8 Red Blood Count 4.56 L Hemoglobin 13.1 L Hematocrit 40.1 L Mean Corpuscular Volume 87.9 Mean Corpuscular Hemoglobin 28.7 L Mean Corpuscular Hemoglobin Concent 32.7 Red Cell Distribution Width 14.6 H Platelet Count 190 Mean Platelet Volume 10.2 Neutrophils % 48.7 Lymphocytes % 33.9 Monocytes % 12.6 H Eosinophils % 3.5 Basophils % 0.8 Nucleated Red Blood Cells % 0.0 Neutrophils # 3.8 Lymphocytes # 2.6 Monocytes # 1.0 H Eosinophils # 0.3 Basophils # 0.1 Nucleated Red Blood Cells # 0.0 Sodium Level 141 Potassium Level 4.6 Chloride Level 99 Carbon Dioxide Level 26 Anion Gap 21 H Blood Urea Nitrogen 22 H Creatinine 0.92 Glucose Level 147 # Calcium Level 9.7 Triglycerides Level 222 H Cholesterol Level 192 LDL Cholesterol, Calculated 105 HDL Cholesterol 43 Cholesterol/HDL Ratio 4.4 Bedside Glucose 160 149 178 Medications Medications Current Medications Alprazolam (Xanax) 0.5 mg Q8 PO Last administered on 10/17/16 14:02; Admin Dose 0.5 MG; Start 10/16/16 at 06:00 Amlodipine Besylate (Norvasc) 5 mg DAILY PO Last administered on 10/17/16 08: 07; Admin Dose 5 MG; Start 10/16/16 at 09:00 Aspirin (Aspirin) 81 mg DAILY PO Last administered on 10/17/16 08:06; Admin Dose 81 MG; Start 10/16/16 at 09:00 Atorvastatin Calcium (Lipitor) 80 mg HS PO Last administered on 10/16/16 20:10 ; Admin Dose 80 MG; Start 10/16/16 at 21:00 Baclofen (Lioresal) 10 mg BID PO Last administered on 10/17/16 08:08; Admin Dose 10 MG; Start 10/16/16 at 09:00 Carvedilol (Coreg) 12.5 mg BID PO Last administered on 10/17/16 08:08; Admin Dose 12.5 MG; Start 10/16/16 at 09:00 Clopidogrel Bisulfate (plaVIX) 75 mg DAILY PO Last administered on 10/17/16 08 :06; Admin Dose 75 MG; Start 10/16/16 at 09:00 Cyanocobalamin (Vitamin B12) 1,000 mcg DAILY PO Last administered on 10/17/16 08:08; Admin Dose 1,000 MCG; Start 10/16/16 at 09:00 Digoxin (Digoxin) 0.125 mg DAILY@13 PO Last administered on 10/17/16 12:29; Admin Dose 0.125 MG; Start 10/16/16 at 13:00 Docusate Sodium (Colace) 100 mg Q12H PRN PO CONSTIPATION; Start 10/16/16 at 05: 00 Furosemide (Lasix) 40 mg DAILY@06 PO Last administered on 10/17/16 05:52; Admin Dose 40 MG; Start 10/16/16 at 06:00 Gabapentin (Neurontin) 100 mg TID PO Last administered on 10/17/16 12:29; Admin Dose 100 MG; Start 10/16/16 at 09:00 Losartan Potassium (Cozaar) 50 mg Q12 PO Last administered on 10/17/16 08:06; Admin Dose 50 MG; Start 10/16/16 at 09:00 Nitroglycerin (Nitroglycerin (Sl Tab) 0.4 Mg) 1 tab [id number] PRN SL CHEST PAIN ; Start 10/16/16 at 05:00 Pantoprazole (Protonix Tab) 40 mg DAILY@06 PO Last administered on 10/17/16 05 :52; Admin Dose 40 MG; Start 10/16/16 at 06:00 Phenytoin (Dilantin) 300 mg HS PO Last administered on 10/16/16 20:10; Admin Dose 300 MG; Start 10/16/16 at 21:00 Potassium Chloride (Klor-Con 10) 10 meq DAILY PO Last administered on 08:07; Admin Dose 10 MEQ; Start 10/16/16 at 09:00 Ranolazine (Ranexa) 1,000 mg BID PO Last administered on 10/17/16 08:06; Admin Dose 1,000 MG; Start 10/16/16 at 09:00 Zolpidem Tartrate (Ambien) 10 mg QHS PRN PO INSOMNIA; Start 10/16/16 at 05:00 Insulin Glargine (Lantus) 25 unit DAILY@08 SC Last administered on 10/17/16 07 :49; Admin Dose 25 UNIT; Start 10/16/16 at 08:00 Diagnostic Test (Pha) (Accu-Chek) 1 ea 02 XX ; Start 10/17/16 at 02:00 Acetaminophen (Tylenol Tab) 650 mg Q4H PRN PO PAIN AND OR ELEVATED TEMP; Start 10/16/16 at 05:00 Enoxaparin Sodium (Lovenox) 40 mg DAILY SC Last administered on 10/17/16 08:10 ; Admin Dose 40 MG; Start 10/16/16 at 09:00 Hydromorphone HCl (Dilaudid) 1 mg Q4H PRN IV PAIN Last administered on 20:01; Admin Dose 1 MG; Start 10/16/16 at 05:00 Miscellaneous Information 1 ea NOTE XX ; Start 10/16/16 at 05:15 Glucose (Glutose) 15 gm Q15M PRN PO DECREASED GLUCOSE; Start 10/16/16 at 05:15 Glucose (Glutose) 22.5 gm Q15M PRN PO DECREASED GLUCOSE; Start 10/16/16 at 05: 15 Dextrose (D50w Syringe) 25 ml Q15M PRN IV DECREASED GLUCOSE; Start 10/16/16 at 05:15 Dextrose (D50w Syringe) 50 ml Q15M PRN IV DECREASED GLUCOSE; Start 10/16/16 at 05:15 Glucagon (Glucagen) 1 mg Q15M PRN IM DECREASED GLUCOSE; Start 10/16/16 at 05:15 Glucose (Glutose) 15 gm Q15M PRN BUCCAL DECREASED GLUCOSE; Start 10/16/16 at 05 :15 Morphine Sulfate (Ms Contin (Er)) 15 mg Q6 PO Last administered on 10/17/16 05 :54; Admin Dose 15 MG; Start 10/16/16 at 06:00 Isosorbide Dinitrate (Isordil) 20 mg TID PO ; Start 10/16/16 at 21:00 NICHOL ACOSTA October 17, 2016 20:29
[2016-10-17] MEDS: PHENYTOIN 100 MG CAP PO SCH (21:22)
[2016-10-17] MEDS: ATORVASTATIN 80 MG TAB PO SCH (21:23)
--- NOTE | 2016-10-17 21:28 | RADRPT ---
Vent Rate: 60 bpm RR Interval: 0 msec AR Interval: 148 msec QRS Duration: 90 msec QT Interval: 458 msec QTC Interval: 458 msec P-R-T Howell: 68 - -69 - 114 degrees Electronic atrial pacemaker Left axis deviation Anteroseptal infarct , age undetermined Abnormal ECG Electronically Signed By: Cuong Olsen [phone]
[2016-10-17] MEDS: ISOSORBIDE DINITRATE 10 MG TAB PO SCH (21:29)
[2016-10-18] VITALS (13 sets, daily range): BP systolic 117–146; BP diastolic 58–78; PULSE 59–66; RESP 18–20
[2016-10-18] MEDS: morphine (ER) 15 MG TAB PO SCH ×5 (00:14→23:55)
[2016-10-18] MEDS: HYDROmorphONE 1 MG/ML SYG IV PRN ×6 (00:54→23:55)
[2016-10-18] MEDS: NITROGLYCERIN (SL) 0.4 MG TAB SL PRN ×4 (01:00→08:22)
[2016-10-18] MEDS: ACCU-CHEK XX SCH ×2 (02:33→21:07)
[2016-10-18] MEDS: PANTOPRAZOLE (EC) 40 MG TAB PO SCH (05:31)
[2016-10-18] MEDS: ALPRAZOLAM 0.25 MG TAB PO SCH ×3 (05:32→21:07)
[2016-10-18] MEDS: FUROSEMIDE 40 MG TAB PO SCH (05:32)
[2016-10-18 07:24] LABS: ADD SCAN DIFF NO
[2016-10-18 07:39] LABS: BASOPHILS % 0.6 % (0.0-2.0); EOSINOPHILS # 0.2 10^3/ul (0.0-0.5); EOSINOPHILS % 2.4 % (0.0-7.0); HEMATOCRIT 35.4 % (42.0-52.0); HEMOGLOBIN 11.7 g/dl (14.0-18.0); LYMPHOCYTES # 2.3 10^3/ul (0.8-2.9); LYMPHOCYTES % 34.7 % (15.0-51.0); MEAN CORPUSCULAR HGB CONC 33.1 g/dl (32.0-37.0); MEAN CORPUSCULAR VOLUME 87.6 fl (82.0-101.0); MEAN PLATELET VOLUME 10.4 fl (7.4-10.4); MONOCYTE # 0.9 10^3/ul (0.3-0.9); MONOCYTES % 13.3 % (0.0-11.0); NEUTROPHIL # 3.3 10^3/ul (1.6-7.5); NEUTROPHILS % 48.7 % (39.0-77.0); PLATELET COUNT 187 10^3/UL (140-415); RED BLOOD COUNT 4.04 10^6/ul (4.70-6.10); RED CELL DISTRIBUTION WIDTH 14.5 % (11.5-14.5); WHITE BLOOD COUNT 6.7 10^3/ul (4.8-10.8)
[2016-10-18 07:51] LABS: POTASSIUM 3.7 mmol/L (3.5-5.1)
[2016-10-18 07:53] LABS: CREATININE 0.82 mg/dl (0.61-1.24)
[2016-10-18] MEDS: INSULIN ASPART [NOVOLOG] 3 ML PEN SC SCH ×7 (07:58→21:00)
[2016-10-18] MEDS: INSULIN GLARGINE [LANtus] 3 ML PEN SC SCH (08:00)
[2016-10-18] MEDS: RANOLAZINE (SR) 500 MG TAB PO SCH ×2 (08:12→20:03)
[2016-10-18] MEDS: CYANOCOBALAMIN 500 MCG TAB PO SCH (08:12)
[2016-10-18] MEDS: ASPIRIN 81 MG TAB PO SCH (08:12)
[2016-10-18] MEDS: BACLOFEN 10 MG TAB PO SCH ×2 (08:12→19:54)
[2016-10-18] MEDS: ISOSORBIDE DINITRATE 10 MG TAB PO SCH ×3 (08:13→19:53)
[2016-10-18] MEDS: CLOPIDOGREL 75 MG TAB PO SCH (08:13)
[2016-10-18] MEDS: GABAPENTIN 100 MG CAP PO SCH ×3 (08:15→19:52)
[2016-10-18] MEDS: AMLODIPINE 5 MG TAB PO SCH (08:17)
[2016-10-18] MEDS: LOSARTAN 50 MG TAB PO SCH ×2 (08:17→19:53)
[2016-10-18] MEDS: POTASSIUM CHLORIDE (SR) 10 MEQ TAB PO SCH (08:17)
[2016-10-18] MEDS: ENOXAPARIN 40 MG/0.4 ML SYG SC SCH (08:18)
[2016-10-18] MEDS ORDERED: HYDROmorphONE 1 MG/ML SYG IV STA (08:30)
[2016-10-18] MEDS: DIGOXIN 0.125 MG TAB PO SCH (12:41)
--- NOTE | 2016-10-18 17:17 | CONS ---
Date/Time of Note Date/Time of Note DATE: 10/18/16 TIME: 17:14 Assessment/Plan Assessment/Plan Chief Complaint/Hosp Course IMPRESSION: 1. Chest pains/angina refractory to medical therapy at this time in a patient with known multivessel obstructive coronary artery disease and status post prior stenting without significant change in symptoms.-trop neg x 3 this admit 2. Congestive heart failure exacerbation, systolic, acute on chronic. 3. Cardiomyopathy with decreased left ventricular ejection fraction last known to be approximately 15% by echo at [facility] July 2016, but 35% by echo read here June 2016. 4. Coronary artery disease, status post coronary bypass graft surgery with all grafts occluded at last catheterization except KNOTT July 2016. 5. Hypertension. 6. Diabetes mellitus. 7. Possible seizure disorder on medications. 8. Anemia, mild. Recc: -Tele -serial ecg's -Continue coreg/losartan -Continue norvasc/isordil/ranexa -Continue asa/plavix -Continue daily lasix and follow volume status closely -Will discuss possible presentation to [facility] in order to facilitate transplant eval with family further Problems: Consultation Date/Type/Reason Admit Date/Time October 16, 2016 at 02:54 Initial Consult Date 10/16/2016 Type of Consultation: Cardiology Reason for Consultation Chest pain Referring Provider: [place] ALEXANDER MD Exam/Review of Systems Vital Signs Vitals Vital Signs Date Time Temp Pulse Resp B/P Pulse Ox O2 Delivery O2 Flow Rate FiO2 10/18/16 16:30 60 10/18/16 15:57 98.6 19 129/59 98 10/18/16 08:00 Nasal Cannula 2.0 Intake and Output 10/17/16 10/17/16 10/18/16 15:00 23:00 07:00 Intake Total 700 ml 600 ml Balance 700 ml 600 ml Exam Review of Systems: CONSTITUTIONAL: No fevers, chills. PULMONARY: No sob CARDIOVASCULAR: No chest pain/palpitations GASTROINTESTINAL: No nausea/vomiting. GENITOURINARY: No hematuria/dysuria. MUSCULOSKELETAL: No myagias/arthalgias. PSYCHIATRIC: The patient denies depression. NEUROLOGIC: No weakness Constitutional: alert Psych: no complaints Head: normocephalic ENMT: mucosa pink and moist Neck: jvd (9cm water), supple Respiratory: diminished breath sounds Cardiovascular: regular rate and rhythm Gastrointestinal: soft Musculoskeletal: muscle tone (normal) Extremities: edema (none) Neurological: other (No focal deficits) Results Result Diagram: 10/18/16 0644 10/18/16 0644 Results 24 hrs Laboratory Tests Test 10/17/16 21:21 10/18/16 02:26 10/18/16 06:44 10/18/16 07:50 Bedside Glucose 202 281 H 269 H White Blood Count 6.7 Red Blood Count 4.04 L Hemoglobin 11.7 L Hematocrit 35.4 L Mean Corpuscular Volume 87.6 Mean Corpuscular Hemoglobin 29.0 Mean Corpuscular Hemoglobin Concent 33.1 Red Cell Distribution Width 14.5 Platelet Count 187 Mean Platelet Volume 10.4 Neutrophils % 48.7 Lymphocytes % 34.7 Monocytes % 13.3 H Eosinophils % 2.4 Basophils % 0.6 Nucleated Red Blood Cells % 0.0 Neutrophils # 3.3 Lymphocytes # 2.3 Monocytes # 0.9 Eosinophils # 0.2 Basophils # 0.0 Nucleated Red Blood Cells # 0.0 Sodium Level 135 Potassium Level 3.7 Chloride Level 97 Carbon Dioxide Level 26 Anion Gap 16 Blood Urea Nitrogen 27 H Creatinine 0.82 Glucose Level 316 #H Calcium Level 9.0 Test 10/18/16 09:00 10/18/16 11:28 10/18/16 14:20 Troponin I 0.013 < 0.012 Bedside Glucose 136 Medications Medications Current Medications Alprazolam (Xanax) 0.5 mg Q8 PO Last administered on 10/18/16 05:32; Admin Dose 0.5 MG; Start 10/16/16 at 06:00 Amlodipine Besylate (Norvasc) 5 mg DAILY PO Last administered on 10/18/16 08: 17; Admin Dose 5 MG; Start 10/16/16 at 09:00 Aspirin (Aspirin) 81 mg DAILY PO Last administered on 10/18/16 08:12; Admin Dose 81 MG; Start 10/16/16 at 09:00 Atorvastatin Calcium (Lipitor) 80 mg HS PO Last administered on 10/17/16 21:23 ; Admin Dose 80 MG; Start 10/16/16 at 21:00 Baclofen (Lioresal) 10 mg BID PO Last administered on 10/18/16 08:12; Admin Dose 10 MG; Start 10/16/16 at 09:00 Carvedilol (Coreg) 12.5 mg BID PO Last administered on 10/18/16 08:14; Admin Dose 12.5 MG; Start 10/16/16 at 09:00 Clopidogrel Bisulfate (plaVIX) 75 mg DAILY PO Last administered on 10/18/16 08 :13; Admin Dose 75 MG; Start 10/16/16 at 09:00 Cyanocobalamin (Vitamin B12) 1,000 mcg DAILY PO Last administered on 10/18/16 08:12; Admin Dose 1,000 MCG; Start 10/16/16 at 09:00 Digoxin (Digoxin) 0.125 mg DAILY@13 PO Last administered on 10/18/16 12:41; Admin Dose 0.125 MG; Start 10/16/16 at 13:00 Docusate Sodium (Colace) 100 mg Q12H PRN PO CONSTIPATION; Start 10/16/16 at 05: 00 Furosemide (Lasix) 40 mg DAILY@06 PO Last administered on 10/18/16 05:32; Admin Dose 40 MG; Start 10/16/16 at 06:00 Gabapentin (Neurontin) 100 mg TID PO Last administered on 10/18/16 12:40; Admin Dose 100 MG; Start 10/16/16 at 09:00 Losartan Potassium (Cozaar) 50 mg Q12 PO Last administered on 10/18/16 08:17; Admin Dose 50 MG; Start 10/16/16 at 09:00 Nitroglycerin (Nitroglycerin (Sl Tab) 0.4 Mg) 1 tab [id number] PRN SL CHEST PAIN Last administered on 10/18/16 08:22; Admin Dose 1 TAB; Start 10/16/16 at 05:00 Pantoprazole (Protonix Tab) 40 mg DAILY@06 PO Last administered on 10/18/16 05 :31; Admin Dose 40 MG; Start 10/16/16 at 06:00 Phenytoin (Dilantin) 300 mg HS PO Last administered on 10/17/16 21:22; Admin Dose 300 MG; Start 10/16/16 at 21:00 Potassium Chloride (Klor-Con 10) 10 meq DAILY PO Last administered on 08:17; Admin Dose 10 MEQ; Start 10/16/16 at 09:00 Ranolazine (Ranexa) 1,000 mg BID PO Last administered on 10/18/16 08:12; Admin Dose 1,000 MG; Start 10/16/16 at 09:00 Zolpidem Tartrate (Ambien) 10 mg QHS PRN PO INSOMNIA; Start 10/16/16 at 05:00 Insulin Glargine (Lantus) 25 unit DAILY@08 SC Last administered on 10/18/16 08 :00; Admin Dose 25 UNIT; Start 10/16/16 at 08:00 Diagnostic Test (Pha) (Accu-Chek) 1 ea 02 XX Last administered on 10/18/16 02: 33; Admin Dose 1 EA; Start 10/17/16 at 02:00 Acetaminophen (Tylenol Tab) 650 mg Q4H PRN PO PAIN AND OR ELEVATED TEMP; Start 10/16/16 at 05:00 Enoxaparin Sodium (Lovenox) 40 mg DAILY SC Last administered on 10/18/16 08:18 ; Admin Dose 40 MG; Start 10/16/16 at 09:00 Hydromorphone HCl (Dilaudid) 1 mg Q4H PRN IV PAIN Last administered on 15:48; Admin Dose 1 MG; Start 10/16/16 at 05:00 Miscellaneous Information 1 ea NOTE XX ; Start 10/16/16 at 05:15 Glucose (Glutose) 15 gm Q15M PRN PO DECREASED GLUCOSE; Start 10/16/16 at 05:15 Glucose (Glutose) 22.5 gm Q15M PRN PO DECREASED GLUCOSE; Start 10/16/16 at 05: 15 Dextrose (D50w Syringe) 25 ml Q15M PRN IV DECREASED GLUCOSE; Start 10/16/16 at 05:15 Dextrose (D50w Syringe) 50 ml Q15M PRN IV DECREASED GLUCOSE; Start 10/16/16 at 05:15 Glucagon (Glucagen) 1 mg Q15M PRN IM DECREASED GLUCOSE; Start 10/16/16 at 05:15 Glucose (Glutose) 15 gm Q15M PRN BUCCAL DECREASED GLUCOSE; Start 10/16/16 at 05 :15 Morphine Sulfate (Ms Contin (Er)) 15 mg Q6 PO Last administered on 10/18/16 12 :40; Admin Dose 15 MG; Start 10/16/16 at 06:00 Isosorbide Dinitrate (Isordil) 10 mg TID PO Last administered on 10/18/16t 12: 40; Admin Dose 10 MG; Start 10/17/16 at 21:00 NICHOL ACOSTA October 18, 2016 17:17
--- NOTE | 2016-10-18 17:43 | PN ---
Date/Time of Note Date/Time of Note DATE: 10/18/16 TIME: 17:41 Assessment/Plan VTE Prophylaxis VTE Prophylaxis Intervention: SCD's Lines/Catheters IV [facility] Lock Urinary Cath still in place: No Assessment/Plan Chief Complaint/Hosp Course ASSESSMENT AND PLAN: 1. Chest pain, rule out acute coronary syndrome. Continue nitroglycerin and morphine and Imdur. Dr. Olsen is asked to see patient in cardiology consultation. Continue to monitor patient on telemetry floor. 2. Severe systolic and diastolic congestive heart failure with ejection fraction of 35% with acute on chronic. Continue Lasix, monitor intake and output. 3. Coronary artery disease status post coronary artery bypass graft and status post angioplasty to the left anterior descending. 4. Cardiomyopathy. 5. Hypertension. 6. Hyperlipidemia. 7. Carotid stenosis. 8. Diabetes mellitus. 9. Possible vascular dementia. 10. Anemia. 11. Seizure disorder. Problems: Subjective 24 Hr Interval Summary Free Text/Dictation Patient's continues to complaints of chest pain relieved by morphine, denies shortness of breath, denies nausea vomiting. Exam/Review of Systems Vital Signs Vitals Vital Signs Date Time Temp Pulse Resp B/P Pulse Ox O2 Delivery O2 Flow Rate FiO2 10/18/16 16:30 60 10/18/16 15:57 98.6 19 129/59 98 10/18/16 08:00 Nasal Cannula 2.0 Intake and Output 10/17/16 10/17/16 10/18/16 15:00 23:00 07:00 Intake Total 700 ml 600 ml Balance 700 ml 600 ml Exam Constitutional: alert, oriented Psych: no complaints Head: atraumatic, normocephalic Eyes: nl conjunctiva ENMT: nl external ears & nose Neck: non-tender, supple Respiratory: clear to auscultation, normal air movement Cardiovascular: nl pulses, regular rate and rhythm Gastrointestinal: non-tender, soft Musculoskeletal: nl extremities to inspection Extremities: normal pulses Neurological: [employer] II-XII intact Skin: nl turgor Results Result Diagram: 10/18/16 0644 10/18/16 0644 Results 24 hrs Laboratory Tests Test 10/17/16 21:21 10/18/16 02:26 10/18/16 06:44 10/18/16 07:50 Bedside Glucose 202 281 H 269 H White Blood Count 6.7 Red Blood Count 4.04 L Hemoglobin 11.7 L Hematocrit 35.4 L Mean Corpuscular Volume 87.6 Mean Corpuscular Hemoglobin 29.0 Mean Corpuscular Hemoglobin Concent 33.1 Red Cell Distribution Width 14.5 Platelet Count 187 Mean Platelet Volume 10.4 Neutrophils % 48.7 Lymphocytes % 34.7 Monocytes % 13.3 H Eosinophils % 2.4 Basophils % 0.6 Nucleated Red Blood Cells % 0.0 Neutrophils # 3.3 Lymphocytes # 2.3 Monocytes # 0.9 Eosinophils # 0.2 Basophils # 0.0 Nucleated Red Blood Cells # 0.0 Sodium Level 135 Potassium Level 3.7 Chloride Level 97 Carbon Dioxide Level 26 Anion Gap 16 Blood Urea Nitrogen 27 H Creatinine 0.82 Glucose Level 316 #H Calcium Level 9.0 Test 10/18/16 09:00 10/18/16 11:28 10/18/16 14:20 10/18/16 17:14 Troponin I 0.013 < 0.012 Bedside Glucose 136 176 Medications Medications Current Medications Alprazolam (Xanax) 0.5 mg Q8 PO Last administered on 10/18/16 05:32; Admin Dose 0.5 MG; Start 10/16/16 at 06:00 Amlodipine Besylate (Norvasc) 5 mg DAILY PO Last administered on 10/18/16 08: 17; Admin Dose 5 MG; Start 10/16/16 at 09:00 Aspirin (Aspirin) 81 mg DAILY PO Last administered on 10/18/16 08:12; Admin Dose 81 MG; Start 10/16/16 at 09:00 Atorvastatin Calcium (Lipitor) 80 mg HS PO Last administered on 10/17/16 21:23 ; Admin Dose 80 MG; Start 10/16/16 at 21:00 Baclofen (Lioresal) 10 mg BID PO Last administered on 10/18/16 08:12; Admin Dose 10 MG; Start 10/16/16 at 09:00 Carvedilol (Coreg) 12.5 mg BID PO Last administered on 10/18/16 08:14; Admin Dose 12.5 MG; Start 10/16/16 at 09:00 Clopidogrel Bisulfate (plaVIX) 75 mg DAILY PO Last administered on 10/18/16 08 :13; Admin Dose 75 MG; Start 10/16/16 at 09:00 Cyanocobalamin (Vitamin B12) 1,000 mcg DAILY PO Last administered on 10/18/16 08:12; Admin Dose 1,000 MCG; Start 10/16/16 at 09:00 Digoxin (Digoxin) 0.125 mg DAILY@13 PO Last administered on 10/18/16 12:41; Admin Dose 0.125 MG; Start 10/16/16 at 13:00 Docusate Sodium (Colace) 100 mg Q12H PRN PO CONSTIPATION; Start 10/16/16 at 05: 00 Furosemide (Lasix) 40 mg DAILY@06 PO Last administered on 10/18/16 05:32; Admin Dose 40 MG; Start 10/16/16 at 06:00 Gabapentin (Neurontin) 100 mg TID PO Last administered on 10/18/16 12:40; Admin Dose 100 MG; Start 10/16/16 at 09:00 Losartan Potassium (Cozaar) 50 mg Q12 PO Last administered on 10/18/16 08:17; Admin Dose 50 MG; Start 10/16/16 at 09:00 Nitroglycerin (Nitroglycerin (Sl Tab) 0.4 Mg) 1 tab [id number] PRN SL CHEST PAIN Last administered on 10/18/16 08:22; Admin Dose 1 TAB; Start 10/16/16 at 05:00 Pantoprazole (Protonix Tab) 40 mg DAILY@06 PO Last administered on 10/18/16 05 :31; Admin Dose 40 MG; Start 10/16/16 at 06:00 Phenytoin (Dilantin) 300 mg HS PO Last administered on 10/17/16 21:22; Admin Dose 300 MG; Start 10/16/16 at 21:00 Potassium Chloride (Klor-Con 10) 10 meq DAILY PO Last administered on 08:17; Admin Dose 10 MEQ; Start 10/16/16 at 09:00 Ranolazine (Ranexa) 1,000 mg BID PO Last administered on 10/18/16 08:12; Admin Dose 1,000 MG; Start 10/16/16 at 09:00 Zolpidem Tartrate (Ambien) 10 mg QHS PRN PO INSOMNIA; Start 10/16/16 at 05:00 Insulin Glargine (Lantus) 25 unit DAILY@08 SC Last administered on 10/18/16 08 :00; Admin Dose 25 UNIT; Start 10/16/16 at 08:00 Diagnostic Test (Pha) (Accu-Chek) 1 ea 02 XX Last administered on 10/18/16 02: 33; Admin Dose 1 EA; Start 10/17/16 at 02:00 Acetaminophen (Tylenol Tab) 650 mg Q4H PRN PO PAIN AND OR ELEVATED TEMP; Start 10/16/16 at 05:00 Enoxaparin Sodium (Lovenox) 40 mg DAILY SC Last administered on 10/18/16 08:18 ; Admin Dose 40 MG; Start 10/16/16 at 09:00 Hydromorphone HCl (Dilaudid) 1 mg Q4H PRN IV PAIN Last administered on 15:48; Admin Dose 1 MG; Start 10/16/16 at 05:00 Miscellaneous Information 1 ea NOTE XX ; Start 10/16/16 at 05:15 Glucose (Glutose) 15 gm Q15M PRN PO DECREASED GLUCOSE; Start 10/16/16 at 05:15 Glucose (Glutose) 22.5 gm Q15M PRN PO DECREASED GLUCOSE; Start 10/16/16 at 05: 15 Dextrose (D50w Syringe) 25 ml Q15M PRN IV DECREASED GLUCOSE; Start 10/16/16 at 05:15 Dextrose (D50w Syringe) 50 ml Q15M PRN IV DECREASED GLUCOSE; Start 10/16/16 at 05:15 Glucagon (Glucagen) 1 mg Q15M PRN IM DECREASED GLUCOSE; Start 10/16/16 at 05:15 Glucose (Glutose) 15 gm Q15M PRN BUCCAL DECREASED GLUCOSE; Start 10/16/16 at 05 :15 Morphine Sulfate (Ms Contin (Er)) 15 mg Q6 PO Last administered on 10/18/16 12 :40; Admin Dose 15 MG; Start 10/16/16 at 06:00 Isosorbide Dinitrate (Isordil) 10 mg TID PO Last administered on 10/18/16 12: 40; Admin Dose 10 MG; Start 10/17/16 at 21:00 LIBRADO MORENO October 18, 2016 17:43
--- NOTE | 2016-10-18 19:31 | RADRPT ---
Vent Rate: 60 bpm RR Interval: 0 msec MI Interval: 148 msec QRS Duration: 94 msec QT Interval: 468 msec QTC Interval: 468 msec P-R-T [place]: 73 - -67 - 78 degrees Electronic atrial pacemaker Left axis deviation Septal infarct , age undetermined Abnormal ECG Electronically Signed By: Cuong Olsen [id number]
[2016-10-18] MEDS: ATORVASTATIN 80 MG TAB PO SCH (19:54)
[2016-10-18] MEDS: DOCUSATE SODIUM 100 MG CAP PO PRN (19:54)
[2016-10-18] MEDS: PHENYTOIN 100 MG CAP PO SCH (20:03)
[2016-10-18] MEDS: ZOLPIDEM 5 MG TAB PO PRN (22:58)
[2016-10-19] VITALS (11 sets, daily range): BP systolic 115–147; BP diastolic 55–86; PULSE 60–78; RESP 16–20
[2016-10-19] MEDS: HYDROmorphONE 1 MG/ML SYG IV PRN ×5 (03:58→22:34)
[2016-10-19] MEDS: morphine (ER) 15 MG TAB PO SCH ×4 (06:00→22:41)
[2016-10-19] MEDS: ALPRAZOLAM 0.25 MG TAB PO SCH ×3 (06:00→22:35)
[2016-10-19] MEDS: FUROSEMIDE 40 MG TAB PO SCH (06:02)
[2016-10-19] MEDS: PANTOPRAZOLE (EC) 40 MG TAB PO SCH (06:02)
[2016-10-19 07:26] LABS: ADD SCAN DIFF NO
[2016-10-19 07:30] LABS: BASOPHIL # 0.1 10^3/ul (0.0-0.1); BASOPHILS % 0.9 % (0.0-2.0); EOSINOPHILS # 0.2 10^3/ul (0.0-0.5); EOSINOPHILS % 3.1 % (0.0-7.0); HEMATOCRIT 34.7 % (42.0-52.0); HEMOGLOBIN 11.1 g/dl (14.0-18.0); LYMPHOCYTES % 29.2 % (15.0-51.0); MEAN CORPUSCULAR VOLUME 87.6 fl (82.0-101.0); MEAN PLATELET VOLUME 10.2 fl (7.4-10.4); MONOCYTE # 0.8 10^3/ul (0.3-0.9); MONOCYTES % 12.2 % (0.0-11.0); NEUTROPHIL # 3.7 10^3/ul (1.6-7.5); NEUTROPHILS % 54.3 % (39.0-77.0); PLATELET COUNT 171 10^3/UL (140-415); RED BLOOD COUNT 3.96 10^6/ul (4.70-6.10); RED CELL DISTRIBUTION WIDTH 14.5 % (11.5-14.5); WHITE BLOOD COUNT 6.8 10^3/ul (4.8-10.8)
[2016-10-19] MEDS: INSULIN ASPART [NOVOLOG] 3 ML PEN SC SCH ×8 (07:47→21:00)
[2016-10-19] MEDS: INSULIN GLARGINE [LANtus] 3 ML PEN SC SCH (07:49)
[2016-10-19 07:55] LABS: CALCIUM 8.7 mg/dl (8.4-10.2); CREATININE 0.79 mg/dl (0.61-1.24); POTASSIUM 4.4 mmol/L (3.5-5.1)
[2016-10-19] MEDS: BACLOFEN 10 MG TAB PO SCH ×2 (08:05→21:00)
[2016-10-19] MEDS: ASPIRIN 81 MG TAB PO SCH (08:05)
[2016-10-19] MEDS: CYANOCOBALAMIN 500 MCG TAB PO SCH (08:05)
[2016-10-19] MEDS: CLOPIDOGREL 75 MG TAB PO SCH (08:05)
[2016-10-19] MEDS: RANOLAZINE (SR) 500 MG TAB PO SCH ×2 (08:05→22:35)
[2016-10-19] MEDS: POTASSIUM CHLORIDE (SR) 10 MEQ TAB PO SCH (08:05)
[2016-10-19] MEDS: ISOSORBIDE DINITRATE 10 MG TAB PO SCH ×3 (08:06→22:35)
[2016-10-19] MEDS: AMLODIPINE 5 MG TAB PO SCH (08:06)
[2016-10-19] MEDS: LOSARTAN 50 MG TAB PO SCH ×2 (08:06→21:00)
[2016-10-19] MEDS: ENOXAPARIN 40 MG/0.4 ML SYG SC SCH (08:07)
[2016-10-19] MEDS: GABAPENTIN 100 MG CAP PO SCH ×3 (08:11→22:36)
[2016-10-19] MEDS: DIGOXIN 0.125 MG TAB PO SCH (13:00)
--- NOTE | 2016-10-19 13:17 | CONS ---
Date/Time of Note Date/Time of Note DATE: 10/19/16 TIME: 13:12 Assessment/Plan Assessment/Plan Additional Assessment/Plan Refractory angina CAD s/p CABG Ischemic Cardiomyopathy s/p aicd Acute on chronics CHF Diabetes Hypertension Seizures Anemia Avoid Volume Overload Restrict fluids 1500cc/ 24 hours Continue Coreg and losartan Continue Norvasc/Isordil Continue Ranexa Continue Asa/Plavix Continue Lasix as scheduled Keep Potassium > 4 and Mag > 2. Consultation Date/Type/Reason Admit Date/Time October 16, 2016 at 02:54 Constitutional: requiring IVF, requiring O2 Eyes: no complaints ENT: no complaints Respiratory: no complaints Cardiovascular: no complaints Gastrointestinal: no complaints Psychological: no complaints Past Surgical History Past Surgical Hx: angioplasty Social History Smoking Status: Former smoker Exam/Review of Systems Vital Signs Vitals Vital Signs Date Time Temp Pulse Resp B/P Pulse Ox O2 Delivery O2 Flow Rate FiO2 10/19/16 12:18 60 10/19/16 11:54 98.3 16 121/86 92 10/18/16 08:00 Nasal Cannula 2.0 Intake and Output 10/18/16 10/18/16 10/19/16 15:00 23:00 07:00 Intake Total 750 ml 600 ml Balance 750 ml 600 ml Exam Constitutional: alert, oriented Head: atraumatic, normocephalic Respiratory: diminished breath sounds Cardiovascular: regular rate and rhythm Gastrointestinal: nl liver, spleen, non-tender, soft Extremities: edema Results Result Diagram: 10/19/16 0710 10/19/16 0710 Results 24 hrs Laboratory Tests Test 10/18/16 14:20 10/18/16 17:14 10/18/16 21:01 10/19/16 07:10 Troponin I < 0.012 Bedside Glucose 176 125 White Blood Count 6.8 Red Blood Count 3.96 L Hemoglobin 11.1 L Hematocrit 34.7 L Mean Corpuscular Volume 87.6 Mean Corpuscular Hemoglobin 28.0 L Mean Corpuscular Hemoglobin Concent 32.0 Red Cell Distribution Width 14.5 Platelet Count 171 Mean Platelet Volume 10.2 Neutrophils % 54.3 Lymphocytes % 29.2 Monocytes % 12.2 H Eosinophils % 3.1 Basophils % 0.9 Nucleated Red Blood Cells % 0.0 Neutrophils # 3.7 Lymphocytes # 2.0 Monocytes # 0.8 Eosinophils # 0.2 Basophils # 0.1 Nucleated Red Blood Cells # 0.0 Sodium Level 134 L Potassium Level 4.4 Chloride Level 101 Carbon Dioxide Level 26 Anion Gap 11 Blood Urea Nitrogen 25 H Creatinine 0.79 Glucose Level 296 H Calcium Level 8.7 Test 10/19/16 07:44 10/19/16 12:07 Bedside Glucose 291 H 234 H Medications Medications Current Medications Alprazolam (Xanax) 0.5 mg Q8 PO Last administered on 10/18/16 05:32; Admin Dose 0.5 MG; Start 10/16/16 at 06:00 Amlodipine Besylate (Norvasc) 5 mg DAILY PO Last administered on 10/19/16 08: 06; Admin Dose 5 MG; Start 10/16/16 at 09:00 Aspirin (Aspirin) 81 mg DAILY PO Last administered on 10/19/16 08:05; Admin Dose 81 MG; Start 10/16/16 at 09:00 Atorvastatin Calcium (Lipitor) 80 mg HS PO Last administered on 10/18/16 19:54 ; Admin Dose 80 MG; Start 10/16/16 at 21:00 Baclofen (Lioresal) 10 mg BID PO Last administered on 10/19/16 08:05; Admin Dose 10 MG; Start 10/16/16 at 09:00 Carvedilol (Coreg) 12.5 mg BID PO Last administered on 10/19/16 08:06; Admin Dose 12.5 MG; Start 10/16/16 at 09:00 Clopidogrel Bisulfate (plaVIX) 75 mg DAILY PO Last administered on 10/19/16 08 :05; Admin Dose 75 MG; Start 10/16/16 at 09:00 Cyanocobalamin (Vitamin B12) 1,000 mcg DAILY PO Last administered on 10/19/16 08:05; Admin Dose 1,000 MCG; Start 10/16/16 at 09:00 Digoxin (Digoxin) 0.125 mg DAILY@13 PO Last administered on 10/18/16 12:41; Admin Dose 0.125 MG; Start 10/16/16 at 13:00 Docusate Sodium (Colace) 100 mg Q12H PRN PO CONSTIPATION Last administered on 19:54; Admin Dose 100 MG; Start 10/16/16 at 05:00 Furosemide (Lasix) 40 mg DAILY@06 PO Last administered on 10/19/16 06:02; Admin Dose 40 MG; Start 10/16/16 at 06:00 Gabapentin (Neurontin) 100 mg TID PO Last administered on 10/18/16 19:52; Admin Dose 100 MG; Start 10/16/16 at 09:00 Losartan Potassium (Cozaar) 50 mg Q12 PO Last administered on 10/19/16 08:06; Admin Dose 50 MG; Start 10/16/16 at 09:00 Nitroglycerin (Nitroglycerin (Sl Tab) 0.4 Mg) 1 tab [id number] PRN SL CHEST PAIN Last administered on 10/18/16 08:22; Admin Dose 1 TAB; Start 10/16/16 at 05:00 Pantoprazole (Protonix Tab) 40 mg DAILY@06 PO Last administered on 10/19/16 06 :02; Admin Dose 40 MG; Start 10/16/16 at 06:00 Phenytoin (Dilantin) 300 mg HS PO Last administered on 10/18/16 20:03; Admin Dose 300 MG; Start 10/16/16 at 21:00 Potassium Chloride (Klor-Con 10) 10 meq DAILY PO Last administered on 08:05; Admin Dose 10 MEQ; Start 10/16/16 at 09:00 Ranolazine (Ranexa) 1,000 mg BID PO Last administered on 10/19/16 08:05; Admin Dose 1,000 MG; Start 10/16/16 at 09:00 Zolpidem Tartrate (Ambien) 10 mg QHS PRN PO INSOMNIA Last administered on 22:58; Admin Dose 10 MG; Start 10/16/16 at 05:00 Insulin Glargine (Lantus) 25 unit DAILY@08 SC Last administered on 10/19/16 07 :49; Admin Dose 25 UNIT; Start 10/16/16 at 08:00 Diagnostic Test (Pha) (Accu-Chek) 1 ea 02 XX Last administered on 10/18/16 02: 33; Admin Dose 1 EA; Start 10/17/16 at 02:00 Acetaminophen (Tylenol Tab) 650 mg Q4H PRN PO PAIN AND OR ELEVATED TEMP; Start 10/16/16 at 05:00 Enoxaparin Sodium (Lovenox) 40 mg DAILY SC Last administered on 10/19/16 08:07 ; Admin Dose 40 MG; Start 10/16/16 at 09:00 Hydromorphone HCl (Dilaudid) 1 mg Q4H PRN IV PAIN Last administered on 12:16; Admin Dose 1 MG; Start 10/16/16 at 05:00 Miscellaneous Information 1 ea NOTE XX ; Start 10/16/16 at 05:15 Glucose (Glutose) 15 gm Q15M PRN PO DECREASED GLUCOSE; Start 10/16/16 at 05:15 Glucose (Glutose) 22.5 gm Q15M PRN PO DECREASED GLUCOSE; Start 10/16/16 at 05: 15 Dextrose (D50w Syringe) 25 ml Q15M PRN IV DECREASED GLUCOSE; Start 10/16/16 at 05:15 Dextrose (D50w Syringe) 50 ml Q15M PRN IV DECREASED GLUCOSE; Start 10/16/16 at 05:15 Glucagon (Glucagen) 1 mg Q15M PRN IM DECREASED GLUCOSE; Start 10/16/16 at 05:15 Glucose (Glutose) 15 gm Q15M PRN BUCCAL DECREASED GLUCOSE; Start 10/16/16 at 05 :15 Morphine Sulfate (Ms Contin (Er)) 15 mg Q6 PO Last administered on 10/18/16 23 :55; Admin Dose 15 MG; Start 10/16/16 at 06:00 Isosorbide Dinitrate (Isordil) 10 mg TID PO Last administered on 10/19/16 08: 06; Admin Dose 10 MG; Start 10/17/16 at 21:00 TANNER GÓMEZ M.D. October 19, 2016 13:17
--- NOTE | 2016-10-19 17:22 | PN ---
Date/Time of Note Date/Time of Note DATE: 10/19/16 TIME: 17:19 Assessment/Plan VTE Prophylaxis VTE Prophylaxis Intervention: other Lines/Catheters IV Catheter Type (from [facility]rsg): Saline Lock Urinary Cath still in place: No Assessment/Plan Assessment/Plan 1. Chest pain, rule out acute coronary syndrome. Continue nitroglycerin and morphine and Imdur. - per Dr. Olsen in cardiology consultation. Continue to monitor patient on telemetry floor. 2. Severe systolic and diastolic congestive heart failure with ejection fraction of 35% with acute on chronic. - Continue Lasix, monitor intake and output. 3. Coronary artery disease status post coronary artery bypass graft and status post angioplasty to the left anterior descending. 4. Cardiomyopathy. 5. Hypertension. 6. Hyperlipidemia. 7. Carotid stenosis. 8. Diabetes mellitus. 9. Possible vascular dementia. 10. Anemia. 11. Seizure disorder. - seizure precautions DW Dr Wright Subjective 24 Hr Interval Summary Respiratory: no complaints Cardiovascular: no complaints Gastrointestinal: no complaints Exam/Review of Systems Vital Signs Vitals Vital Signs Date Time Temp Pulse Resp B/P Pulse Ox O2 Delivery O2 Flow Rate FiO2 10/19/16 16:12 64 10/19/16 15:38 97.7 18 115/55 98 10/18/16 08:00 Nasal Cannula 2.0 Intake and Output 10/18/16 10/18/16 10/19/16 15:00 23:00 07:00 Intake Total 750 ml 600 ml Balance 750 ml 600 ml Exam Constitutional: alert Psych: nl mood/affect ENMT: nl external ears & nose Cardiovascular: regular rate and rhythm Gastrointestinal: non-tender, soft Musculoskeletal: swelling Extremities: edema Results Result Diagram: 10/19/16 0710 10/19/16 0710 Results 24 hrs Laboratory Tests Test 10/18/16 21:01 10/19/16 07:10 10/19/16 07:44 10/19/16 12:07 Bedside Glucose 125 291 H 234 H White Blood Count 6.8 Red Blood Count 3.96 L Hemoglobin 11.1 L Hematocrit 34.7 L Mean Corpuscular Volume 87.6 Mean Corpuscular Hemoglobin 28.0 L Mean Corpuscular Hemoglobin Concent 32.0 Red Cell Distribution Width 14.5 Platelet Count 171 Mean Platelet Volume 10.2 Neutrophils % 54.3 Lymphocytes % 29.2 Monocytes % 12.2 H Eosinophils % 3.1 Basophils % 0.9 Nucleated Red Blood Cells % 0.0 Neutrophils # 3.7 Lymphocytes # 2.0 Monocytes # 0.8 Eosinophils # 0.2 Basophils # 0.1 Nucleated Red Blood Cells # 0.0 Sodium Level 134 L Potassium Level 4.4 Chloride Level 101 Carbon Dioxide Level 26 Anion Gap 11 Blood Urea Nitrogen 25 H Creatinine 0.79 Glucose Level 296 H Calcium Level 8.7 Medications Medications Current Medications Alprazolam (Xanax) 0.5 mg Q8 PO Last administered on 10/18/16 05:32; Admin Dose 0.5 MG; Start 10/16/16 at 06:00 Amlodipine Besylate (Norvasc) 5 mg DAILY PO Last administered on 10/19/16 08: 06; Admin Dose 5 MG; Start 10/16/16 at 09:00 Aspirin (Aspirin) 81 mg DAILY PO Last administered on 10/19/16 08:05; Admin Dose 81 MG; Start 10/16/16 at 09:00 Atorvastatin Calcium (Lipitor) 80 mg HS PO Last administered on 10/18/16 19:54 ; Admin Dose 80 MG; Start 10/16/16 at 21:00 Baclofen (Lioresal) 10 mg BID PO Last administered on 10/19/16 08:05; Admin Dose 10 MG; Start 10/16/16 at 09:00 Carvedilol (Coreg) 12.5 mg BID PO Last administered on 10/19/16 08:06; Admin Dose 12.5 MG; Start 10/16/16 at 09:00 Clopidogrel Bisulfate (plaVIX) 75 mg DAILY PO Last administered on 10/19/16 08 :05; Admin Dose 75 MG; Start 10/16/16 at 09:00 Cyanocobalamin (Vitamin B12) 1,000 mcg DAILY PO Last administered on 10/19/16 08:05; Admin Dose 1,000 MCG; Start 10/16/16 at 09:00 Digoxin (Digoxin) 0.125 mg DAILY@13 PO Last administered on 10/18/16 12:41; Admin Dose 0.125 MG; Start 10/16/16 at 13:00 Docusate Sodium (Colace) 100 mg Q12H PRN PO CONSTIPATION Last administered on 19:54; Admin Dose 100 MG; Start 10/16/16 at 05:00 Furosemide (Lasix) 40 mg DAILY@06 PO Last administered on 10/19/16 06:02; Admin Dose 40 MG; Start 10/16/16 at 06:00 Gabapentin (Neurontin) 100 mg TID PO Last administered on 10/18/16 19:52; Admin Dose 100 MG; Start 10/16/16 at 09:00 Losartan Potassium (Cozaar) 50 mg Q12 PO Last administered on 10/19/16 08:06; Admin Dose 50 MG; Start 10/16/16 at 09:00 Nitroglycerin (Nitroglycerin (Sl Tab) 0.4 Mg) 1 tab [id number] PRN SL CHEST PAIN Last administered on 10/18/16 08:22; Admin Dose 1 TAB; Start 10/16/16 at 05:00 Pantoprazole (Protonix Tab) 40 mg DAILY@06 PO Last administered on 10/19/16 06 :02; Admin Dose 40 MG; Start 10/16/16 at 06:00 Phenytoin (Dilantin) 300 mg HS PO Last administered on 10/18/16 20:03; Admin Dose 300 MG; Start 10/16/16 at 21:00 Potassium Chloride (Klor-Con 10) 10 meq DAILY PO Last administered on 08:05; Admin Dose 10 MEQ; Start 10/16/16 at 09:00 Ranolazine (Ranexa) 1,000 mg BID PO Last administered on 10/19/16 08:05; Admin Dose 1,000 MG; Start 10/16/16 at 09:00 Zolpidem Tartrate (Ambien) 10 mg QHS PRN PO INSOMNIA Last administered on 22:58; Admin Dose 10 MG; Start 10/16/16 at 05:00 Insulin Glargine (Lantus) 25 unit DAILY@08 SC Last administered on 10/19/16 07 :49; Admin Dose 25 UNIT; Start 10/16/16 at 08:00 Diagnostic Test (Pha) (Accu-Chek) 1 ea 02 XX Last administered on 10/18/16 02: 33; Admin Dose 1 EA; Start 10/17/16 at 02:00 Acetaminophen (Tylenol Tab) 650 mg Q4H PRN PO PAIN AND OR ELEVATED TEMP; Start 10/16/16 at 05:00 Enoxaparin Sodium (Lovenox) 40 mg DAILY SC Last administered on 10/19/16 08:07 ; Admin Dose 40 MG; Start 10/16/16 at 09:00 Hydromorphone HCl (Dilaudid) 1 mg Q4H PRN IV PAIN Last administered on 16:56; Admin Dose 1 MG; Start 10/16/16 at 05:00 Miscellaneous Information 1 ea NOTE XX ; Start 10/16/16 at 05:15 Glucose (Glutose) 15 gm Q15M PRN PO DECREASED GLUCOSE; Start 10/16/16 at 05:15 Glucose (Glutose) 22.5 gm Q15M PRN PO DECREASED GLUCOSE; Start 10/16/16 at 05: 15 Dextrose (D50w Syringe) 25 ml Q15M PRN IV DECREASED GLUCOSE; Start 10/16/16 at 05:15 Dextrose (D50w Syringe) 50 ml Q15M PRN IV DECREASED GLUCOSE; Start 10/16/16 at 05:15 Glucagon (Glucagen) 1 mg Q15M PRN IM DECREASED GLUCOSE; Start 10/16/16 at 05:15 Glucose (Glutose) 15 gm Q15M PRN BUCCAL DECREASED GLUCOSE; Start 10/16/16 at 05 :15 Morphine Sulfate (Ms Contin (Er)) 15 mg Q6 PO Last administered on 10/18/16 23 :55; Admin Dose 15 MG; Start 10/16/16 at 06:00 Isosorbide Dinitrate (Isordil) 10 mg TID PO Last administered on 10/19/16 08: 06; Admin Dose 10 MG; Start 10/17/16 at 21:00 AGA BARNETT October 19, 2016 17:22
[2016-10-19] MEDS: ATORVASTATIN 80 MG TAB PO SCH (22:35)
[2016-10-19] MEDS: ZOLPIDEM 5 MG TAB PO PRN (22:35)
[2016-10-19] MEDS: PHENYTOIN 100 MG CAP PO SCH (22:35)
[2016-10-19] MEDS: ACCU-CHEK XX SCH (22:42)
[2016-10-20] VITALS (12 sets, daily range): BP systolic 108–156; BP diastolic 55–77; PULSE 59–61; RESP 16–18
[2016-10-20] MEDS: HYDROmorphONE 1 MG/ML SYG IV PRN ×6 (02:00→22:28)
[2016-10-20] MEDS: morphine (ER) 15 MG TAB PO SCH ×4 (05:57→21:14)
[2016-10-20] MEDS: FUROSEMIDE 40 MG TAB PO SCH (05:58)
[2016-10-20] MEDS: PANTOPRAZOLE (EC) 40 MG TAB PO SCH (05:58)
[2016-10-20] MEDS: ALPRAZOLAM 0.25 MG TAB PO SCH ×3 (05:58→21:15)
[2016-10-20] MEDS: ASPIRIN 81 MG TAB PO SCH (08:02)
[2016-10-20] MEDS: CYANOCOBALAMIN 500 MCG TAB PO SCH (08:02)
[2016-10-20] MEDS: RANOLAZINE (SR) 500 MG TAB PO SCH ×2 (08:02→21:14)
[2016-10-20] MEDS: BACLOFEN 10 MG TAB PO SCH ×2 (08:02→21:14)
[2016-10-20] MEDS: LOSARTAN 50 MG TAB PO SCH ×2 (08:03→21:15)
[2016-10-20] MEDS: ISOSORBIDE DINITRATE 10 MG TAB PO SCH ×3 (08:03→21:14)
[2016-10-20] MEDS: GABAPENTIN 100 MG CAP PO SCH ×3 (08:03→21:15)
[2016-10-20] MEDS: AMLODIPINE 5 MG TAB PO SCH (08:03)
[2016-10-20] MEDS: POTASSIUM CHLORIDE (SR) 10 MEQ TAB PO SCH (08:03)
[2016-10-20] MEDS: CLOPIDOGREL 75 MG TAB PO SCH (08:03)
[2016-10-20] MEDS: ENOXAPARIN 40 MG/0.4 ML SYG SC SCH (08:05)
[2016-10-20] MEDS: INSULIN GLARGINE [LANtus] 3 ML PEN SC SCH (08:05)
[2016-10-20] MEDS: INSULIN ASPART [NOVOLOG] 3 ML PEN SC SCH ×7 (08:06→21:16)
--- NOTE | 2016-10-20 10:01 | CONS ---
Date/Time of Note Date/Time of Note DATE: 10/20/16 TIME: 10:00 Assessment/Plan Assessment/Plan Additional Assessment/Plan Refractory angina CAD s/p CABG Ischemic Cardiomyopathy s/p aicd Acute on chronics CHF Diabetes Hypertension Seizures Anemia Avoid Volume Overload Restrict fluids 1500cc/ 24 hours Continue Coreg and losartan Continue Norvasc/Isordil Continue Ranexa Continue Asa/Plavix Continue Lasix as scheduled Keep Potassium > 4 and Mag > 2. Consultation Date/Type/Reason Admit Date/Time October 16, 2016 at 02:54 Initial Consult Date Type of Consultation: Cardiology Referring Provider: [place] ALEXANDER MD Exam/Review of Systems Vital Signs Vitals Vital Signs Date Time Temp Pulse Resp B/P Pulse Ox O2 Delivery O2 Flow Rate FiO2 10/20/16 08:05 61 10/20/16 07:47 97.8 18 131/73 94 10/18/16 08:00 Nasal Cannula 2.0 Intake and Output 10/19/16 10/19/16 10/20/16 15:00 23:00 07:00 Intake Total 1280 ml 350 ml Balance 1280 ml 350 ml Exam Constitutional: alert, oriented Head: atraumatic, normocephalic Respiratory: diminished breath sounds Cardiovascular: regular rate and rhythm Gastrointestinal: nl liver, spleen, non-tender, soft Extremities: edema Results Result Diagram: 10/19/16 0710 10/19/16 0710 Results 24 hrs Laboratory Tests Test 10/19/16 12:07 10/19/16 17:16 10/19/16 21:26 10/20/16 08:01 Bedside Glucose 234 H 159 136 169 Medications Medications Current Medications Alprazolam (Xanax) 0.5 mg Q8 PO Last administered on 10/19/16 22:35; Admin Dose 0.5 MG; Start 10/16/16 at 06:00 Amlodipine Besylate (Norvasc) 5 mg DAILY PO Last administered on 10/20/16 08: 03; Admin Dose 5 MG; Start 10/16/16 at 09:00 Aspirin (Aspirin) 81 mg DAILY PO Last administered on 10/20/16 08:02; Admin Dose 81 MG; Start 10/16/16 at 09:00 Atorvastatin Calcium (Lipitor) 80 mg HS PO Last administered on 10/19/16 22:35 ; Admin Dose 80 MG; Start 10/16/16 at 21:00 Baclofen (Lioresal) 10 mg BID PO Last administered on 10/20/16 08:02; Admin Dose 10 MG; Start 10/16/16 at 09:00 Carvedilol (Coreg) 12.5 mg BID PO Last administered on 10/20/16 08:04; Admin Dose 12.5 MG; Start 10/16/16 at 09:00 Clopidogrel Bisulfate (plaVIX) 75 mg DAILY PO Last administered on 10/20/16 08 :03; Admin Dose 75 MG; Start 10/16/16 at 09:00 Cyanocobalamin (Vitamin B12) 1,000 mcg DAILY PO Last administered on 10/20/16 08:02; Admin Dose 1,000 MCG; Start 10/16/16 at 09:00 Digoxin (Digoxin) 0.125 mg DAILY@13 PO Last administered on 10/18/16 12:41; Admin Dose 0.125 MG; Start 10/16/16 at 13:00 Docusate Sodium (Colace) 100 mg Q12H PRN PO CONSTIPATION Last administered on 19:54; Admin Dose 100 MG; Start 10/16/16 at 05:00 Furosemide (Lasix) 40 mg DAILY@06 PO Last administered on 10/20/16 05:58; Admin Dose 40 MG; Start 10/16/16 at 06:00 Gabapentin (Neurontin) 100 mg TID PO Last administered on 10/20/16 08:03; Admin Dose 100 MG; Start 10/16/16 at 09:00 Losartan Potassium (Cozaar) 50 mg Q12 PO Last administered on 10/20/16 08:03; Admin Dose 50 MG; Start 10/16/16 at 09:00 Nitroglycerin (Nitroglycerin (Sl Tab) 0.4 Mg) 1 tab [id number] PRN SL CHEST PAIN Last administered on 10/18/16 08:22; Admin Dose 1 TAB; Start 10/16/16 at 05:00 Pantoprazole (Protonix Tab) 40 mg DAILY@06 PO Last administered on 10/20/16 05 :58; Admin Dose 40 MG; Start 10/16/16 at 06:00 Phenytoin (Dilantin) 300 mg HS PO Last administered on 10/19/16 22:35; Admin Dose 300 MG; Start 10/16/16 at 21:00 Potassium Chloride (Klor-Con 10) 10 meq DAILY PO Last administered on 08:03; Admin Dose 10 MEQ; Start 10/16/16 at 09:00 Ranolazine (Ranexa) 1,000 mg BID PO Last administered on 10/20/16 08:02; Admin Dose 1,000 MG; Start 10/16/16 at 09:00 Zolpidem Tartrate (Ambien) 10 mg QHS PRN PO INSOMNIA Last administered on 22:35; Admin Dose 10 MG; Start 10/16/16 at 05:00 Insulin Glargine (Lantus) 25 unit DAILY@08 SC Last administered on 10/20/16 08 :05; Admin Dose 25 UNIT; Start 10/16/16 at 08:00 Diagnostic Test (Pha) (Accu-Chek) 1 ea 02 XX Last administered on 10/18/16 02: 33; Admin Dose 1 EA; Start 10/17/16 at 02:00 Acetaminophen (Tylenol Tab) 650 mg Q4H PRN PO PAIN AND OR ELEVATED TEMP; Start 10/16/16 at 05:00 Enoxaparin Sodium (Lovenox) 40 mg DAILY SC Last administered on 10/20/16 08:05 ; Admin Dose 40 MG; Start 10/16/16 at 09:00 Hydromorphone HCl (Dilaudid) 1 mg Q4H PRN IV PAIN Last administered on 05:58; Admin Dose 1 MG; Start 10/16/16 at 05:00 Miscellaneous Information 1 ea NOTE XX ; Start 10/16/16 at 05:15 Glucose (Glutose) 15 gm Q15M PRN PO DECREASED GLUCOSE; Start 10/16/16 at 05:15 Glucose (Glutose) 22.5 gm Q15M PRN PO DECREASED GLUCOSE; Start 10/16/16 at 05: 15 Dextrose (D50w Syringe) 25 ml Q15M PRN IV DECREASED GLUCOSE; Start 10/16/16 at 05:15 Dextrose (D50w Syringe) 50 ml Q15M PRN IV DECREASED GLUCOSE; Start 10/16/16 at 05:15 Glucagon (Glucagen) 1 mg Q15M PRN IM DECREASED GLUCOSE; Start 10/16/16 at 05:15 Glucose (Glutose) 15 gm Q15M PRN BUCCAL DECREASED GLUCOSE; Start 10/16/16 at 05 :15 Morphine Sulfate (Ms Contin (Er)) 15 mg Q6 PO Last administered on 10/19/16 22 :41; Admin Dose 15 MG; Start 10/16/16 at 06:00 Isosorbide Dinitrate (Isordil) 10 mg TID PO Last administered on 10/20/16 08: 03; Admin Dose 10 MG; Start 10/17/16 at 21:00 TANNER GÓMEZ M.D. October 20, 2016 10:01
--- NOTE | 2016-10-20 10:56 | PN ---
Date/Time of Note Date/Time of Note DATE: 10/20/16 TIME: 10:46 Assessment/Plan VTE Prophylaxis VTE Prophylaxis Intervention: other Lines/Catheters IV Catheter Type (from Nrsg): Saline Lock Urinary Cath still in place: No Assessment/Plan Assessment/Plan 1. Chest pain, rule out acute coronary syndrome. Continue nitroglycerin and morphine and Imdur. - per Dr. Olsen in cardiology consultation. Continue to monitor patient on telemetry floor. 2. Severe systolic and diastolic congestive heart failure with ejection fraction of 35% with acute on chronic. - Continue Lasix, monitor intake and output. 3. Coronary artery disease status post coronary artery bypass graft and status post angioplasty to the left anterior descending. 4. Cardiomyopathy. 5. Hypertension. 6. Hyperlipidemia. 7. Carotid stenosis. 8. Diabetes mellitus. 9. Possible vascular dementia. 10. Anemia. 11. Seizure disorder. - seizure precautions bhavani Rodriguez - plan for [facility] transfer for heart transplant. BHAVANI Wright Subjective 24 Hr Interval Summary Free Text/Dictation c/o chest pain, afebrile, denies shortness of breath. bhavani Rodriguez - plan for [facility] transfer for heart transplant. bhavani staff- no new issues reported. Respiratory: no complaints Cardiovascular: chest pain Gastrointestinal: no complaints Musculoskeletal: no complaints Skin: no complaints Exam/Review of Systems Vital Signs Vitals Vital Signs Date Time Temp Pulse Resp B/P Pulse Ox O2 Delivery O2 Flow Rate FiO2 10/20/16 08:05 61 10/20/16 07:47 97.8 18 131/73 94 10/18/16 08:00 Nasal Cannula 2.0 Intake and Output 10/19/16 10/19/16 10/20/16 15:00 23:00 07:00 Intake Total 1280 ml 350 ml Balance 1280 ml 350 ml Exam Constitutional: alert, well developed Respiratory: clear to auscultation Cardiovascular: nl pulses Gastrointestinal: non-tender, soft Musculoskeletal: nl extremities to inspection Results Result Diagram: 10/19/16 0710 10/19/16 0710 Results 24 hrs Laboratory Tests Test 10/19/16 12:07 10/19/16 17:16 10/19/16 21:26 10/20/16 08:01 Bedside Glucose 234 H 159 136 169 Medications Medications Current Medications Alprazolam (Xanax) 0.5 mg Q8 PO Last administered on 10/19/16 22:35; Admin Dose 0.5 MG; Start 10/16/16 at 06:00 Amlodipine Besylate (Norvasc) 5 mg DAILY PO Last administered on 10/20/16 08: 03; Admin Dose 5 MG; Start 10/16/16 at 09:00 Aspirin (Aspirin) 81 mg DAILY PO Last administered on 10/20/16 08:02; Admin Dose 81 MG; Start 10/16/16 at 09:00 Atorvastatin Calcium (Lipitor) 80 mg HS PO Last administered on 10/19/16 22:35 ; Admin Dose 80 MG; Start 10/16/16 at 21:00 Baclofen (Lioresal) 10 mg BID PO Last administered on 10/20/16 08:02; Admin Dose 10 MG; Start 10/16/16 at 09:00 Carvedilol (Coreg) 12.5 mg BID PO Last administered on 10/20/16 08:04; Admin Dose 12.5 MG; Start 10/16/16 at 09:00 Clopidogrel Bisulfate (plaVIX) 75 mg DAILY PO Last administered on 10/20/16 08 :03; Admin Dose 75 MG; Start 10/16/16 at 09:00 Cyanocobalamin (Vitamin B12) 1,000 mcg DAILY PO Last administered on 10/20/16 08:02; Admin Dose 1,000 MCG; Start 10/16/16 at 09:00 Digoxin (Digoxin) 0.125 mg DAILY@13 PO Last administered on 10/18/16 12:41; Admin Dose 0.125 MG; Start 10/16/16 at 13:00 Docusate Sodium (Colace) 100 mg Q12H PRN PO CONSTIPATION Last administered on 19:54; Admin Dose 100 MG; Start 10/16/16 at 05:00 Furosemide (Lasix) 40 mg DAILY@06 PO Last administered on 10/20/16 05:58; Admin Dose 40 MG; Start 10/16/16 at 06:00 Gabapentin (Neurontin) 100 mg TID PO Last administered on 10/20/16 08:03; Admin Dose 100 MG; Start 10/16/16 at 09:00 Losartan Potassium (Cozaar) 50 mg Q12 PO Last administered on 10/20/16 08:03; Admin Dose 50 MG; Start 10/16/16 at 09:00 Nitroglycerin (Nitroglycerin (Sl Tab) 0.4 Mg) 1 tab [id number] PRN SL CHEST PAIN Last administered on 10/18/16 08:22; Admin Dose 1 TAB; Start 10/16/16 at 05:00 Pantoprazole (Protonix Tab) 40 mg DAILY@06 PO Last administered on 10/20/16 05 :58; Admin Dose 40 MG; Start 10/16/16 at 06:00 Phenytoin (Dilantin) 300 mg HS PO Last administered on 10/19/16 22:35; Admin Dose 300 MG; Start 10/16/16 at 21:00 Potassium Chloride (Klor-Con 10) 10 meq DAILY PO Last administered on 08:03; Admin Dose 10 MEQ; Start 10/16/16 at 09:00 Ranolazine (Ranexa) 1,000 mg BID PO Last administered on 10/20/16 08:02; Admin Dose 1,000 MG; Start 10/16/16 at 09:00 Zolpidem Tartrate (Ambien) 10 mg QHS PRN PO INSOMNIA Last administered on 22:35; Admin Dose 10 MG; Start 10/16/16 at 05:00 Insulin Glargine (Lantus) 25 unit DAILY@08 SC Last administered on 10/20/16 08 :05; Admin Dose 25 UNIT; Start 10/16/16 at 08:00 Diagnostic Test (Pha) (Accu-Chek) 1 ea 02 XX Last administered on 10/18/16 02: 33; Admin Dose 1 EA; Start 10/17/16 at 02:00 Acetaminophen (Tylenol Tab) 650 mg Q4H PRN PO PAIN AND OR ELEVATED TEMP; Start 10/16/16 at 05:00 Enoxaparin Sodium (Lovenox) 40 mg DAILY SC Last administered on 10/20/16 08:05 ; Admin Dose 40 MG; Start 10/16/16 at 09:00 Hydromorphone HCl (Dilaudid) 1 mg Q4H PRN IV PAIN Last administered on 10:04; Admin Dose 1 MG; Start 10/16/16 at 05:00 Miscellaneous Information 1 ea NOTE XX ; Start 10/16/16 at 05:15 Glucose (Glutose) 15 gm Q15M PRN PO DECREASED GLUCOSE; Start 10/16/16 at 05:15 Glucose (Glutose) 22.5 gm Q15M PRN PO DECREASED GLUCOSE; Start 10/16/16 at 05: 15 Dextrose (D50w Syringe) 25 ml Q15M PRN IV DECREASED GLUCOSE; Start 10/16/16 at 05:15 Dextrose (D50w Syringe) 50 ml Q15M PRN IV DECREASED GLUCOSE; Start 10/16/16 at 05:15 Glucagon (Glucagen) 1 mg Q15M PRN IM DECREASED GLUCOSE; Start 10/16/16 at 05:15 Glucose (Glutose) 15 gm Q15M PRN BUCCAL DECREASED GLUCOSE; Start 10/16/16 at 05 :15 Morphine Sulfate (Ms Contin (Er)) 15 mg Q6 PO Last administered on 10/19/16 22 :41; Admin Dose 15 MG; Start 10/16/16 at 06:00 Isosorbide Dinitrate (Isordil) 10 mg TID PO Last administered on 10/20/16 08: 03; Admin Dose 10 MG; Start 10/17/16 at 21:00 AGA BARNETT October 20, 2016 10:56
[2016-10-20] MEDS: DIGOXIN 0.125 MG TAB PO SCH (13:10)
[2016-10-20] MEDS: PHENYTOIN 100 MG CAP PO SCH (21:14)
[2016-10-20] MEDS: ATORVASTATIN 80 MG TAB PO SCH (21:14)
[2016-10-20] MEDS: ZOLPIDEM 5 MG TAB PO PRN (22:28)
[2016-10-20] MEDS: DOCUSATE SODIUM 100 MG CAP PO PRN (22:33)
[2016-10-21] VITALS (12 sets, daily range): BP systolic 90–136; BP diastolic 53–80; PULSE 60–64; RESP 18–61
[2016-10-21] MEDS: ACCU-CHEK XX SCH (02:00)
[2016-10-21] MEDS: HYDROmorphONE 1 MG/ML SYG IV PRN ×7 (02:25→22:09)
[2016-10-21] MEDS: ALPRAZOLAM 0.25 MG TAB PO SCH ×3 (06:00→22:09)
[2016-10-21] MEDS: morphine (ER) 15 MG TAB PO SCH ×3 (06:00→17:43)
[2016-10-21] MEDS: PANTOPRAZOLE (EC) 40 MG TAB PO SCH (06:25)
[2016-10-21] MEDS: FUROSEMIDE 40 MG TAB PO SCH (06:26)
[2016-10-21] MEDS: INSULIN ASPART [NOVOLOG] 3 ML PEN SC SCH ×7 (08:03→21:00)
[2016-10-21 08:05] LABS: ADD SCAN DIFF NO
[2016-10-21] MEDS: INSULIN GLARGINE [LANtus] 3 ML PEN SC SCH (08:07)
[2016-10-21 08:15] LABS: BASOPHIL # 0.1 10^3/ul (0.0-0.1); BASOPHILS % 0.8 % (0.0-2.0); EOSINOPHILS # 0.2 10^3/ul (0.0-0.5); EOSINOPHILS % 2.7 % (0.0-7.0); HEMATOCRIT 36.6 % (42.0-52.0); HEMOGLOBIN 11.9 g/dl (14.0-18.0); LYMPHOCYTES # 2.4 10^3/ul (0.8-2.9); LYMPHOCYTES % 33.3 % (15.0-51.0); MEAN CORPUSCULAR HEMOGLOBIN 28.8 pg (29.0-33.0); MEAN CORPUSCULAR HGB CONC 32.5 g/dl (32.0-37.0); MEAN CORPUSCULAR VOLUME 88.6 fl (82.0-101.0); MEAN PLATELET VOLUME 10.6 fl (7.4-10.4); NEUTROPHIL # 3.7 10^3/ul (1.6-7.5); NEUTROPHILS % 49.9 % (39.0-77.0); PLATELET COUNT 196 10^3/UL (140-415); RED BLOOD COUNT 4.13 10^6/ul (4.70-6.10); RED CELL DISTRIBUTION WIDTH 14.3 % (11.5-14.5); WHITE BLOOD COUNT 7.3 10^3/ul (4.8-10.8)
[2016-10-21] MEDS: ASPIRIN 81 MG TAB PO SCH (08:29)
[2016-10-21] MEDS: CYANOCOBALAMIN 500 MCG TAB PO SCH (08:30)
[2016-10-21] MEDS: GABAPENTIN 100 MG CAP PO SCH ×3 (08:30→22:19)
[2016-10-21] MEDS: CLOPIDOGREL 75 MG TAB PO SCH (08:30)
[2016-10-21] MEDS: BACLOFEN 10 MG TAB PO SCH ×2 (08:30→22:18)
[2016-10-21] MEDS: POTASSIUM CHLORIDE (SR) 10 MEQ TAB PO SCH (08:30)
[2016-10-21] MEDS: AMLODIPINE 5 MG TAB PO SCH (08:31)
[2016-10-21] MEDS: LOSARTAN 50 MG TAB PO SCH ×2 (08:31→22:20)
[2016-10-21 08:32] LABS: POTASSIUM 4.4 mmol/L (3.5-5.1)
[2016-10-21] MEDS: RANOLAZINE (SR) 500 MG TAB PO SCH ×2 (08:32→22:27)
[2016-10-21] MEDS: ISOSORBIDE DINITRATE 10 MG TAB PO SCH ×3 (08:32→22:20)
[2016-10-21 08:35] LABS: CREATININE 0.78 mg/dl (0.61-1.24)
[2016-10-21] MEDS: ENOXAPARIN 40 MG/0.4 ML SYG SC SCH (08:35)
[2016-10-21 08:36] LABS: CALCIUM 8.9 mg/dl (8.4-10.2)
[2016-10-21] MEDS: DIGOXIN 0.125 MG TAB PO SCH (14:08)
[2016-10-21] MEDS: DOCUSATE SODIUM 100 MG CAP PO PRN (14:19)
--- NOTE | 2016-10-21 16:59 | PN ---
Date/Time of Note Date/Time of Note DATE: 10/21/16 TIME: 16:53 Assessment/Plan VTE Prophylaxis VTE Prophylaxis Intervention: SCD's Lines/Catheters IV [facility] Saline Lock Urinary Cath still in place: No Assessment/Plan Chief Complaint/Hosp Course Patient continues to complain of chest pain, requiring Dilaudid, denies SOB at rest, elevated blood sugar, Check Hgb A1 c, diabetic education consult, will adjust insulin according to recs. ASSESSMENT AND PLAN: - Hyperglycemia in pt with Diabetes mellitus. Check Hgb A1 c, diabetic education consult. - Chest pain, rule out acute coronary syndrome. Continue nitroglycerin and morphine and Imdur. Dr. Olsen is following in cardiology consultation. Continue to monitor patient on telemetry floor. - Severe systolic and diastolic congestive heart failure with ejection fraction of 35% with acute on chronic. Continue Lasix, monitor intake and output. - Coronary artery disease status post coronary artery bypass graft and status post angioplasty to the left anterior descending. Continue Aspirin and Plavix. - Cardiomyopathy. - Hypertension. - Hyperlipidemia. - Carotid stenosis. - Possible vascular dementia. - Anemia. - Seizure disorder. Problems: Exam/Review of Systems Vital Signs Vitals Vital Signs Date Time Temp Pulse Resp B/P Pulse Ox O2 Delivery O2 Flow Rate FiO2 10/21/16 16:08 60 10/21/16 15:50 97.9 18 120/58 98 10/18/16 08:00 Nasal Cannula 2.0 Intake and Output 10/20/16 10/20/16 10/21/16 15:00 23:00 07:00 Intake Total 1080 ml 480 ml Balance 1080 ml 480 ml Exam Constitutional: alert, oriented Psych: no complaints Head: atraumatic, normocephalic Eyes: nl conjunctiva ENMT: nl external ears & nose Neck: non-tender, supple Respiratory: clear to auscultation, normal air movement Cardiovascular: nl pulses, regular rate and rhythm Gastrointestinal: non-tender, soft Musculoskeletal: nl extremities to inspection Extremities: normal pulses Neurological: ENROLLMENT COORDINATOR II-XII intact Skin: nl turgor Results Result Diagram: 10/21/16 0655 10/21/16 0655 Results 24 hrs Laboratory Tests Test 10/20/16 17:08 10/20/16 21:10 10/21/16 02:25 10/21/16 06:55 Bedside Glucose 237 H 278 H 230 H White Blood Count 7.3 Red Blood Count 4.13 L Hemoglobin 11.9 L Hematocrit 36.6 L Mean Corpuscular Volume 88.6 Mean Corpuscular Hemoglobin 28.8 L Mean Corpuscular Hemoglobin Concent 32.5 Red Cell Distribution Width 14.3 Platelet Count 196 Mean Platelet Volume 10.6 H Neutrophils % 49.9 Lymphocytes % 33.3 Monocytes % 13.0 H Eosinophils % 2.7 Basophils % 0.8 Nucleated Red Blood Cells % 0.0 Neutrophils # 3.7 Lymphocytes # 2.4 Monocytes # 1.0 H Eosinophils # 0.2 Basophils # 0.1 Nucleated Red Blood Cells # 0.0 Sodium Level 135 Potassium Level 4.4 Chloride Level 96 L Carbon Dioxide Level 28 Anion Gap 15 Blood Urea Nitrogen 22 H Creatinine 0.78 Glucose Level 233 H Calcium Level 8.9 Test 10/21/16 07:48 10/21/16 11:57 10/21/16 12:00 Bedside Glucose 214 358 H 334 H Medications Medications Current Medications Alprazolam (Xanax) 0.5 mg Q8 PO Last administered on 10/21/16 14:08; Admin Dose 0.5 MG; Start 10/16/16 at 06:00 Amlodipine Besylate (Norvasc) 5 mg DAILY PO Last administered on 10/21/16 08: 31; Admin Dose 5 MG; Start 10/16/16 at 09:00 Aspirin (Aspirin) 81 mg DAILY PO Last administered on 10/21/16 08:29; Admin Dose 81 MG; Start 10/16/16 at 09:00 Atorvastatin Calcium (Lipitor) 80 mg HS PO Last administered on 10/20/16 21:14 ; Admin Dose 80 MG; Start 10/16/16 at 21:00 Baclofen (Lioresal) 10 mg BID PO Last administered on 10/21/16 08:30; Admin Dose 10 MG; Start 10/16/16 at 09:00 Carvedilol (Coreg) 12.5 mg BID PO Last administered on 10/21/16 08:31; Admin Dose 12.5 MG; Start 10/16/16 at 09:00 Clopidogrel Bisulfate (plaVIX) 75 mg DAILY PO Last administered on 10/21/16 08 :30; Admin Dose 75 MG; Start 10/16/16 at 09:00 Cyanocobalamin (Vitamin B12) 1,000 mcg DAILY PO Last administered on 10/21/16 08:30; Admin Dose 1,000 MCG; Start 10/16/16 at 09:00 Digoxin (Digoxin) 0.125 mg DAILY@13 PO Last administered on 10/21/16 14:08; Admin Dose 0.125 MG; Start 10/16/16 at 13:00 Docusate Sodium (Colace) 100 mg Q12H PRN PO CONSTIPATION Last administered on 14:19; Admin Dose 100 MG; Start 10/16/16 at 05:00 Furosemide (Lasix) 40 mg DAILY@06 PO Last administered on 10/21/16 06:26; Admin Dose 40 MG; Start 10/16/16 at 06:00 Gabapentin (Neurontin) 100 mg TID PO Last administered on 10/20/16 21:15; Admin Dose 100 MG; Start 10/16/16 at 09:00 Losartan Potassium (Cozaar) 50 mg Q12 PO Last administered on 10/21/16 08:31; Admin Dose 50 MG; Start 10/16/16 at 09:00 Nitroglycerin (Nitroglycerin (Sl Tab) 0.4 Mg) 1 tab [id number] PRN SL CHEST PAIN Last administered on 10/18/16 08:22; Admin Dose 1 TAB; Start 10/16/16 at 05:00 Pantoprazole (Protonix Tab) 40 mg DAILY@06 PO Last administered on 10/21/16 06 :25; Admin Dose 40 MG; Start 10/16/16 at 06:00 Phenytoin (Dilantin) 300 mg HS PO Last administered on 10/20/16 21:14; Admin Dose 300 MG; Start 10/16/16 at 21:00 Potassium Chloride (Klor-Con 10) 10 meq DAILY PO Last administered on 08:30; Admin Dose 10 MEQ; Start 10/16/16 at 09:00 Ranolazine (Ranexa) 1,000 mg BID PO Last administered on 10/21/16 08:32; Admin Dose 1,000 MG; Start 10/16/16 at 09:00 Zolpidem Tartrate (Ambien) 10 mg QHS PRN PO INSOMNIA Last administered on 22:28; Admin Dose 10 MG; Start 10/16/16 at 05:00 Insulin Glargine (Lantus) 25 unit DAILY@08 SC Last administered on 10/21/16 08 :07; Admin Dose 25 UNIT; Start 10/16/16 at 08:00 Diagnostic Test (Pha) (Accu-Chek) 1 ea 02 XX Last administered on 10/18/16 02: 33; Admin Dose 1 EA; Start 10/17/16 at 02:00 Acetaminophen (Tylenol Tab) 650 mg Q4H PRN PO PAIN AND OR ELEVATED TEMP; Start 10/16/16 at 05:00 Enoxaparin Sodium (Lovenox) 40 mg DAILY SC Last administered on 10/21/16 08:35 ; Admin Dose 40 MG; Start 10/16/16 at 09:00 Hydromorphone HCl (Dilaudid) 1 mg Q4H PRN IV PAIN Last administered on 14:25; Admin Dose 1 MG; Start 10/16/16 at 05:00 Miscellaneous Information 1 ea NOTE XX ; Start 10/16/16 at 05:15 Glucose (Glutose) 15 gm Q15M PRN PO DECREASED GLUCOSE; Start 10/16/16 at 05:15 Glucose (Glutose) 22.5 gm Q15M PRN PO DECREASED GLUCOSE; Start 10/16/16 at 05: 15 Dextrose (D50w Syringe) 25 ml Q15M PRN IV DECREASED GLUCOSE; Start 10/16/16 at 05:15 Dextrose (D50w Syringe) 50 ml Q15M PRN IV DECREASED GLUCOSE; Start 10/16/16 at 05:15 Glucagon (Glucagen) 1 mg Q15M PRN IM DECREASED GLUCOSE; Start 10/16/16 at 05:15 Glucose (Glutose) 15 gm Q15M PRN BUCCAL DECREASED GLUCOSE; Start 10/16/16 at 05 :15 Morphine Sulfate (Ms Contin (Er)) 15 mg Q6 PO Last administered on 10/21/16 12 :10; Admin Dose 15 MG; Start 10/16/16 at 06:00 Isosorbide Dinitrate (Isordil) 10 mg TID PO Last administered on 10/21/16 14: 08; Admin Dose 10 MG; Start 10/17/16 at 21:00 LIBRADO MORENO October 21, 2016 16:59
[2016-10-21] MEDS: ATORVASTATIN 80 MG TAB PO SCH (22:19)
[2016-10-21] MEDS: PHENYTOIN 100 MG CAP PO SCH (22:26)
[2016-10-21] MEDS: ZOLPIDEM 5 MG TAB PO PRN (22:26)
--- NOTE | 2016-10-21 22:47 | CONS ---
Date/Time of Note Date/Time of Note DATE: 10/21/16 TIME: 22:45 Assessment/Plan Assessment/Plan Chief Complaint/Hosp Course IMPRESSION: 1. Chest pains/angina refractory to medical therapy at this time in a patient with known multivessel obstructive coronary artery disease and status post prior stenting without significant change in symptoms.-trop neg x 3 this admit 2. Congestive heart failure exacerbation, systolic, acute on chronic. 3. Cardiomyopathy with decreased left ventricular ejection fraction last known to be approximately 15% by echo at [facility] July 2016, but 35% by echo read here June 2016. 4. Coronary artery disease, status post coronary bypass graft surgery with all grafts occluded at last catheterization except KNOTT July 2016. 5. Hypertension. 6. Diabetes mellitus. 7. Possible seizure disorder on medications. 8. Anemia, mild. Recc: -Tele -serial ecg's -Continue coreg/losartan -Continue norvasc/isordil/ranexa -Continue asa/plavix -Continue daily lasix and follow volume status closely -Will discuss possible presentation to [facility] in order to facilitate transplant eval with family further -D/C planning if patient continues to have improved pain control and good volume status Problems: Consultation Date/Type/Reason Admit Date/Time October 16, 2016 at 02:54 Initial Consult Date 10/16/2016 Type of Consultation: Cardiology Reason for Consultation Chest pain/cardiomyopathy Referring Provider: [place] ALEXANDER MD Exam/Review of Systems Vital Signs Vitals Vital Signs Date Time Temp Pulse Resp B/P Pulse Ox O2 Delivery O2 Flow Rate FiO2 10/21/16 20:18 60 10/21/16 20:00 98.3 61 120/58 99 10/18/16 08:00 Nasal Cannula 2.0 Intake and Output 10/20/16 10/20/16 10/21/16 15:00 23:00 07:00 Intake Total 1080 ml 480 ml Balance 1080 ml 480 ml Exam Review of Systems: CONSTITUTIONAL: No fevers, chills. PULMONARY: No sob CARDIOVASCULAR: No current chest pain/palpitations GASTROINTESTINAL: No nausea/vomiting. GENITOURINARY: No hematuria/dysuria. MUSCULOSKELETAL: No myagias/arthalgias. PSYCHIATRIC: The patient denies depression. NEUROLOGIC: No weakness Constitutional: alert Psych: no complaints Head: normocephalic ENMT: mucosa pink and moist Neck: non-tender, supple Respiratory: clear to auscultation Cardiovascular: regular rate and rhythm Gastrointestinal: non-tender, soft Musculoskeletal: muscle tone (normal) Extremities: edema (none) Neurological: other (No focal deficits) Results Result Diagram: 10/21/1665410/21/16 0655 Results 24 hrs Laboratory Tests Test 10/21/16 02:25 10/21/16 06:55 10/21/16 07:48 10/21/16 11:57 Bedside Glucose 230 H 214 358 H White Blood Count 7.3 Red Blood Count 4.13 L Hemoglobin 11.9 L Hematocrit 36.6 L Mean Corpuscular Volume 88.6 Mean Corpuscular Hemoglobin 28.8 L Mean Corpuscular Hemoglobin Concent 32.5 Red Cell Distribution Width 14.3 Platelet Count 196 Mean Platelet Volume 10.6 H Neutrophils % 49.9 Lymphocytes % 33.3 Monocytes % 13.0 H Eosinophils % 2.7 Basophils % 0.8 Nucleated Red Blood Cells % 0.0 Neutrophils # 3.7 Lymphocytes # 2.4 Monocytes # 1.0 H Eosinophils # 0.2 Basophils # 0.1 Nucleated Red Blood Cells # 0.0 Sodium Level 135 Potassium Level 4.4 Chloride Level 96 L Carbon Dioxide Level 28 Anion Gap 15 Blood Urea Nitrogen 22 H Creatinine 0.78 Glucose Level 233 H Calcium Level 8.9 Test 10/21/16 12:00 10/21/16 17:20 10/21/16 21:24 Bedside Glucose 334 H 221 H 127 Medications Medications Current Medications Alprazolam (Xanax) 0.5 mg Q8 PO Last administered on 10/21/16 22:09; Admin Dose 0.5 MG; Start 10/16/16 at 06:00 Amlodipine Besylate (Norvasc) 5 mg DAILY PO Last administered on 10/21/16 08: 31; Admin Dose 5 MG; Start 10/16/16 at 09:00 Aspirin (Aspirin) 81 mg DAILY PO Last administered on 10/21/16 08:29; Admin Dose 81 MG; Start 10/16/16 at 09:00 Atorvastatin Calcium (Lipitor) 80 mg HS PO Last administered on 10/21/16 22:19 ; Admin Dose 80 MG; Start 10/16/16 at 21:00 Baclofen (Lioresal) 10 mg BID PO Last administered on 10/21/16 22:18; Admin Dose 10 MG; Start 10/16/16 at 09:00 Carvedilol (Coreg) 12.5 mg BID PO Last administered on 10/21/16 22:20; Admin Dose 12.5 MG; Start 10/16/16 at 09:00 Clopidogrel Bisulfate (plaVIX) 75 mg DAILY PO Last administered on 10/21/16 08 :30; Admin Dose 75 MG; Start 10/16/16 at 09:00 Cyanocobalamin (Vitamin B12) 1,000 mcg DAILY PO Last administered on 10/21/16 08:30; Admin Dose 1,000 MCG; Start 10/16/16 at 09:00 Digoxin (Digoxin) 0.125 mg DAILY@13 PO Last administered on 10/21/16 14:08; Admin Dose 0.125 MG; Start 10/16/16 at 13:00 Docusate Sodium (Colace) 100 mg Q12H PRN PO CONSTIPATION Last administered on 14:19; Admin Dose 100 MG; Start 10/16/16 at 05:00 Furosemide (Lasix) 40 mg DAILY@06 PO Last administered on 10/21/16 06:26; Admin Dose 40 MG; Start 10/16/16 at 06:00 Gabapentin (Neurontin) 100 mg TID PO Last administered on 10/21/16 22:19; Admin Dose 100 MG; Start 10/16/16 at 09:00 Losartan Potassium (Cozaar) 50 mg Q12 PO Last administered on 10/21/16 22:20; Admin Dose 50 MG; Start 10/16/16 at 09:00 Nitroglycerin (Nitroglycerin (Sl Tab) 0.4 Mg) 1 tab [id number] PRN SL CHEST PAIN Last administered on 10/18/16 08:22; Admin Dose 1 TAB; Start 10/16/16 at 05:00 Pantoprazole (Protonix Tab) 40 mg DAILY@06 PO Last administered on 10/21/16 06 :25; Admin Dose 40 MG; Start 10/16/16 at 06:00 Phenytoin (Dilantin) 300 mg HS PO Last administered on 10/21/16 22:26; Admin Dose 300 MG; Start 10/16/16 at 21:00 Potassium Chloride (Klor-Con 10) 10 meq DAILY PO Last administered on 08:30; Admin Dose 10 MEQ; Start 10/16/16 at 09:00 Ranolazine (Ranexa) 1,000 mg BID PO Last administered on 10/21/16 22:27; Admin Dose 1,000 MG; Start 10/16/16 at 09:00 Zolpidem Tartrate (Ambien) 10 mg QHS PRN PO INSOMNIA Last administered on 22:26; Admin Dose 10 MG; Start 10/16/16 at 05:00 Diagnostic Test (Pha) (Accu-Chek) 1 ea 02 XX Last administered on 10/18/16 02: 33; Admin Dose 1 EA; Start 10/17/16 at 02:00 Acetaminophen (Tylenol Tab) 650 mg Q4H PRN PO PAIN AND OR ELEVATED TEMP; Start 10/16/16 at 05:00 Enoxaparin Sodium (Lovenox) 40 mg DAILY SC Last administered on 10/21/16 08:35 ; Admin Dose 40 MG; Start 10/16/16 at 09:00 Hydromorphone HCl (Dilaudid) 1 mg Q4H PRN IV PAIN Last administered on 22:09; Admin Dose 1 MG; Start 10/16/16 at 05:00 Miscellaneous Information 1 ea NOTE XX ; Start 10/16/16 at 05:15 Glucose (Glutose) 15 gm Q15M PRN PO DECREASED GLUCOSE; Start 10/16/16 at 05:15 Glucose (Glutose) 22.5 gm Q15M PRN PO DECREASED GLUCOSE; Start 10/16/16 at 05: 15 Dextrose (D50w Syringe) 25 ml Q15M PRN IV DECREASED GLUCOSE; Start 10/16/16 at 05:15 Dextrose (D50w Syringe) 50 ml Q15M PRN IV DECREASED GLUCOSE; Start 10/16/16 at 05:15 Glucagon (Glucagen) 1 mg Q15M PRN IM DECREASED GLUCOSE; Start 10/16/16 at 05:15 Glucose (Glutose) 15 gm Q15M PRN BUCCAL DECREASED GLUCOSE; Start 10/16/16 at 05 :15 Morphine Sulfate (Ms Contin (Er)) 15 mg Q6 PO Last administered on 10/21/16 17 :43; Admin Dose 15 MG; Start 10/16/16 at 06:00 Isosorbide Dinitrate (Isordil) 10 mg TID PO Last administered on 10/21/16t 22: 20; Admin Dose 10 MG; Start 10/17/16 at 21:00 Insulin Glargine (Lantus) 30 unit DAILY@08 SC ; Start 10/22/16 at 08:00 NICHOL ACOSTA October 21, 2016 22:47
[2016-10-22] VITALS (11 sets, daily range): BP systolic 116–137; BP diastolic 59–68; PULSE 60; RESP 17–18
[2016-10-22] MEDS: morphine (ER) 15 MG TAB PO SCH ×4 (00:48→17:25)
[2016-10-22] MEDS: ACCU-CHEK XX SCH ×2 (02:00→21:01)
[2016-10-22] MEDS: ALPRAZOLAM 0.25 MG TAB PO SCH ×3 (06:22→21:01)
[2016-10-22] MEDS: PANTOPRAZOLE (EC) 40 MG TAB PO SCH (06:22)
[2016-10-22] MEDS: FUROSEMIDE 40 MG TAB PO SCH (06:23)
[2016-10-22] MEDS: HYDROmorphONE 1 MG/ML SYG IV PRN ×5 (06:24→21:54)
[2016-10-22 07:46] LABS: ADD SCAN DIFF NO
[2016-10-22 07:47] LABS: BASOPHIL # 0.1 10^3/ul (0.0-0.1); BASOPHILS % 0.9 % (0.0-2.0); EOSINOPHILS # 0.2 10^3/ul (0.0-0.5); EOSINOPHILS % 3.3 % (0.0-7.0); HEMATOCRIT 34.9 % (42.0-52.0); HEMOGLOBIN 11.4 g/dl (14.0-18.0); LYMPHOCYTES # 2.1 10^3/ul (0.8-2.9); LYMPHOCYTES % 30.3 % (15.0-51.0); MEAN CORPUSCULAR HEMOGLOBIN 28.7 pg (29.0-33.0); MEAN CORPUSCULAR HGB CONC 32.7 g/dl (32.0-37.0); MEAN CORPUSCULAR VOLUME 87.9 fl (82.0-101.0); MEAN PLATELET VOLUME 10.7 fl (7.4-10.4); MONOCYTE # 0.9 10^3/ul (0.3-0.9); MONOCYTES % 12.2 % (0.0-11.0); NEUTROPHIL # 3.7 10^3/ul (1.6-7.5); PLATELET COUNT 193 10^3/UL (140-415); RED BLOOD COUNT 3.97 10^6/ul (4.70-6.10); RED CELL DISTRIBUTION WIDTH 14.3 % (11.5-14.5)
[2016-10-22 08:05] LABS: POTASSIUM 4.1 mmol/L (3.5-5.1)
[2016-10-22 08:08] LABS: CREATININE 0.73 mg/dl (0.61-1.24)
[2016-10-22 08:09] LABS: CALCIUM 9.1 mg/dl (8.4-10.2)
[2016-10-22] MEDS: RANOLAZINE (SR) 500 MG TAB PO SCH ×2 (08:39→21:01)
[2016-10-22] MEDS: POTASSIUM CHLORIDE (SR) 10 MEQ TAB PO SCH (08:40)
[2016-10-22] MEDS: ASPIRIN 81 MG TAB PO SCH (08:41)
[2016-10-22] MEDS: LOSARTAN 50 MG TAB PO SCH ×2 (08:41→21:02)
[2016-10-22] MEDS: CLOPIDOGREL 75 MG TAB PO SCH (08:41)
[2016-10-22] MEDS: BACLOFEN 10 MG TAB PO SCH ×2 (08:41→21:01)
[2016-10-22] MEDS: CYANOCOBALAMIN 500 MCG TAB PO SCH (08:41)
[2016-10-22] MEDS: AMLODIPINE 5 MG TAB PO SCH (08:42)
[2016-10-22] MEDS: ISOSORBIDE DINITRATE 10 MG TAB PO SCH ×3 (08:42→21:01)
[2016-10-22] MEDS: INSULIN ASPART [NOVOLOG] 3 ML PEN SC SCH ×7 (08:43→21:00)
[2016-10-22] MEDS: INSULIN GLARGINE [LANtus] 3 ML PEN SC SCH (08:45)
[2016-10-22] MEDS: GABAPENTIN 100 MG CAP PO SCH ×3 (08:46→21:01)
[2016-10-22] MEDS: ENOXAPARIN 40 MG/0.4 ML SYG SC SCH (08:46)
--- NOTE | 2016-10-22 09:16 | CONS ---
Date/Time of Note Date/Time of Note DATE: 10/22/16 TIME: 09:14 Assessment/Plan Assessment/Plan Additional Assessment/Plan 1. Chest pains/angina refractory to medical therapy at this time in a patient with known multivessel obstructive coronary artery disease and status post prior stenting without significant change in symptoms.-trop neg x 3 this admit - OHT eval to be considered. 2. Congestive heart failure exacerbation, systolic, acute on chronic- con't to keep euvolemic. 3. Cardiomyopathy with decreased left ventricular ejection fraction last known to be approximately 15% by echo at [facility] July 2016, but 35% by echo read here June 2016. 4. Coronary artery disease, status post coronary bypass graft surgery with all grafts occluded at last catheterization except KNOTT July 2016. 5. Hypertension- well rx now. 6. Diabetes mellitus - med rx advised. 7. Possible seizure disorder on medications. 8. Anemia, mild. Consultation Date/Type/Reason Admit Date/Time October 16, 2016 at 02:54 Initial Consult Date Type of Consultation: Cardiology Referring Provider: KY ALEXANDER MD 24 HR Interval Summary Free Text/Dictation NO acute events - no sign ectopy in tele ROS: No fever, no chills, no nausea, no vomiting, no diarrhea/constipation No recent weight changes + CP chronic , no PND, no orthopnea No dizziness, blurred vision No thirst, no heat or cold intolerance Exam/Review of Systems Vital Signs Vitals Vital Signs Date Time Temp Pulse Resp B/P Pulse Ox O2 Delivery O2 Flow Rate FiO2 10/22/16 08:07 60 10/22/16 08:05 97.5 17 137/68 100 10/18/16 08:00 Nasal Cannula 2.0 Intake and Output 10/21/16 10/21/16 10/22/16 15:00 23:00 07:00 Intake Total 900 ml Balance 900 ml Exam General: WN/WD/NAD, AOx 3 HEENT: Unicetric/atraumatic/EOMI ( follow commands) NECK: JVD elevated, no thyromegaly Lymph: no lymphadenopathy HEART: regular with no S3, II/ systolic murmur at apex LUNGS: Coarse sounds ABD: soft, NT, ND, +BS : Intact Neuro: non focal SKIN: chronic changes EXT: trace edema Results Result Diagram: 5/23/17 0702 5/23/17 0702 Results 24 hrs Laboratory Tests Test 10/21/16 11:57 10/21/16 12:00 10/21/16 17:20 10/21/16 21:24 Bedside Glucose 358 H 334 H 221 H 127 Test 10/22/16 07:02 10/22/16 08:18 White Blood Count 7.0 Red Blood Count 3.97 L Hemoglobin 11.4 L Hematocrit 34.9 L Mean Corpuscular Volume 87.9 Mean Corpuscular Hemoglobin 28.7 L Mean Corpuscular Hemoglobin Concent 32.7 Red Cell Distribution Width 14.3 Platelet Count 193 Mean Platelet Volume 10.7 H Neutrophils % 53.0 Lymphocytes % 30.3 Monocytes % 12.2 H Eosinophils % 3.3 Basophils % 0.9 Nucleated Red Blood Cells % 0.0 Neutrophils # 3.7 Lymphocytes # 2.1 Monocytes # 0.9 Eosinophils # 0.2 Basophils # 0.1 Nucleated Red Blood Cells # 0.0 Sodium Level 138 Potassium Level 4.1 Chloride Level 100 Carbon Dioxide Level 28 Anion Gap 14 Blood Urea Nitrogen 21 H Creatinine 0.73 Glucose Level 188 Hemoglobin A1c 7.5 H Calcium Level 9.1 Bedside Glucose 184 Medications Medications Current Medications Alprazolam (Xanax) 0.5 mg Q8 PO Last administered on 10/22/16 06:22; Admin Dose 0.5 MG; Start 10/16/16 at 06:00 Amlodipine Besylate (Norvasc) 5 mg DAILY PO Last administered on 10/22/16 08: 42; Admin Dose 5 MG; Start 10/16/16 at 09:00 Aspirin (Aspirin) 81 mg DAILY PO Last administered on 10/22/16 08:41; Admin Dose 81 MG; Start 10/16/16 at 09:00 Atorvastatin Calcium (Lipitor) 80 mg HS PO Last administered on 10/21/16 22:19 ; Admin Dose 80 MG; Start 10/16/16 at 21:00 Baclofen (Lioresal) 10 mg BID PO Last administered on 10/22/16 08:41; Admin Dose 10 MG; Start 10/16/16 at 09:00 Carvedilol (Coreg) 12.5 mg BID PO Last administered on 10/22/16 08:40; Admin Dose 12.5 MG; Start 10/16/16 at 09:00 Clopidogrel Bisulfate (plaVIX) 75 mg DAILY PO Last administered on 10/22/16 08 :41; Admin Dose 75 MG; Start 10/16/16 at 09:00 Cyanocobalamin (Vitamin B12) 1,000 mcg DAILY PO Last administered on 10/22/16 08:41; Admin Dose 1,000 MCG; Start 10/16/16 at 09:00 Digoxin (Digoxin) 0.125 mg DAILY@13 PO Last administered on 10/21/16 14:08; Admin Dose 0.125 MG; Start 10/16/16 at 13:00 Docusate Sodium (Colace) 100 mg Q12H PRN PO CONSTIPATION Last administered on 14:19; Admin Dose 100 MG; Start 10/16/16 at 05:00 Furosemide (Lasix) 40 mg DAILY@06 PO Last administered on 10/22/16 06:23; Admin Dose 40 MG; Start 10/16/16 at 06:00 Gabapentin (Neurontin) 100 mg TID PO Last administered on 10/21/16 22:19; Admin Dose 100 MG; Start 10/16/16 at 09:00 Losartan Potassium (Cozaar) 50 mg Q12 PO Last administered on 10/22/16 08:41; Admin Dose 50 MG; Start 10/16/16 at 09:00 Nitroglycerin (Nitroglycerin (Sl Tab) 0.4 Mg) 1 tab [id number] PRN SL CHEST PAIN Last administered on 10/18/16 08:22; Admin Dose 1 TAB; Start 10/16/16 at 05:00 Pantoprazole (Protonix Tab) 40 mg DAILY@06 PO Last administered on 10/22/16 06 :22; Admin Dose 40 MG; Start 10/16/16 at 06:00 Phenytoin (Dilantin) 300 mg HS PO Last administered on 10/21/16 22:26; Admin Dose 300 MG; Start 10/16/16 at 21:00 Potassium Chloride (Klor-Con 10) 10 meq DAILY PO Last administered on 08:40; Admin Dose 10 MEQ; Start 10/16/16 at 09:00 Ranolazine (Ranexa) 1,000 mg BID PO Last administered on 10/22/16 08:39; Admin Dose 1,000 MG; Start 10/16/16 at 09:00 Zolpidem Tartrate (Ambien) 10 mg QHS PRN PO INSOMNIA Last administered on 22:26; Admin Dose 10 MG; Start 10/16/16 at 05:00 Diagnostic Test (Pha) (Accu-Chek) 1 ea 02 XX Last administered on 10/18/16 02: 33; Admin Dose 1 EA; Start 10/17/16 at 02:00 Acetaminophen (Tylenol Tab) 650 mg Q4H PRN PO PAIN AND OR ELEVATED TEMP; Start 10/16/16 at 05:00 Enoxaparin Sodium (Lovenox) 40 mg DAILY SC Last administered on 10/22/16 08:46 ; Admin Dose 40 MG; Start 10/16/16 at 09:00 Hydromorphone HCl (Dilaudid) 1 mg Q4H PRN IV PAIN Last administered on 06:24; Admin Dose 1 MG; Start 10/16/16 at 05:00 Miscellaneous Information 1 ea NOTE XX ; Start 10/16/16 at 05:15 Glucose (Glutose) 15 gm Q15M PRN PO DECREASED GLUCOSE; Start 10/16/16 at 05:15 Glucose (Glutose) 22.5 gm Q15M PRN PO DECREASED GLUCOSE; Start 10/16/16 at 05: 15 Dextrose (D50w Syringe) 25 ml Q15M PRN IV DECREASED GLUCOSE; Start 10/16/16 at 05:15 Dextrose (D50w Syringe) 50 ml Q15M PRN IV DECREASED GLUCOSE; Start 10/16/16 at 05:15 Glucagon (Glucagen) 1 mg Q15M PRN IM DECREASED GLUCOSE; Start 10/16/16 at 05:15 Glucose (Glutose) 15 gm Q15M PRN BUCCAL DECREASED GLUCOSE; Start 10/16/16 at 05 :15 Morphine Sulfate (Ms Contin (Er)) 15 mg Q6 PO Last administered on 10/22/16 06 :22; Admin Dose 15 MG; Start 10/16/16 at 06:00 Isosorbide Dinitrate (Isordil) 10 mg TID PO Last administered on 10/22/16 08: 42; Admin Dose 10 MG; Start 10/17/16 at 21:00 Insulin Glargine (Lantus) 30 unit DAILY@08 SC Last administered on 10/22/16t 08 :45; Admin Dose 30 UNIT; Start 10/22/16 at 08:00 MARTINEZ ODOM MD October 22, 2016 09:16
[2016-10-22] MEDS: DIGOXIN 0.125 MG TAB PO SCH (12:00)
--- NOTE | 2016-10-22 14:22 | RADRPT ---
PROCEDURE: XR Chest. CLINICAL INDICATION: Congestive heart failure. TECHNIQUE: Chest x-ray, single view. COMPARISON: 10/16/2016. FINDINGS: The heart is mildly enlarged and unchanged in size. Aortic arch atherosclerotic calcification is pr esent. Pacemaker and ICD leads terminate within the expected locations of the right atrium and righ t ventricle, respectively. Low lung volumes are observed. Pulmonary vascularity is slightly promin ent. The body of the AICD obscures the left costophrenic angle. There is no evidence of right pleu ral effusion. Skeletal structures and upper abdomen are unremarkable. Median sternotomy wires are in place. IMPRESSION: Cardiomegaly and atherosclerosis with mild pulmonary vascular prominence. RPTAT: HLST .Genevieve Marquez MD, MD Date Time Electronically viewed and signed by .Genevieve Marquez MD, MD on 10/22/2016 14:22 .T/
--- NOTE | 2016-10-22 18:10 | PN ---
Date/Time of Note Date/Time of Note DATE: 10/22/16 TIME: 18:07 Assessment/Plan VTE Prophylaxis VTE Prophylaxis Intervention: SCD's Lines/Catheters IV [facility] Peripheral IV Urinary Cath still in place: No Assessment/Plan Chief Complaint/Hosp Course Patient continues to complain of chest pain, requiring Dilaudid, better sugar controlled, Lantus was increased to 30 and pre-meal NovoLog to 10. ASSESSMENT AND PLAN: - Poorly controlled diabetes mellitus. Hgb A1 c 7.5, continue to monitor blood sugar q. before meals and at bedtime, continue Lantus and pre-meal NovoLog. - Chest pain, rule out acute coronary syndrome. Continue nitroglycerin and morphine and Imdur. Dr. Olsen is following in cardiology consultation. Continue to monitor patient on telemetry floor. - Severe systolic and diastolic congestive heart failure with ejection fraction of 35% with acute on chronic. Continue Lasix, monitor intake and output. - Coronary artery disease status post coronary artery bypass graft and status post angioplasty to the left anterior descending. Continue Aspirin and Plavix. - Cardiomyopathy. - Hypertension. - Hyperlipidemia. Continue statin - Carotid stenosis. - Possible vascular dementia. - Anemia. - Seizure disorder. Continue Dilantin Further recommendations based on clinical course. Plan of care discussed with Dr. Wright. Problems: Exam/Review of Systems Vital Signs Vitals Vital Signs Date Time Temp Pulse Resp B/P Pulse Ox O2 Delivery O2 Flow Rate FiO2 10/22/16 16:32 60 10/22/16 16:07 98.7 18 128/64 97 10/18/16 08:00 Nasal Cannula 2.0 Intake and Output 10/21/16 10/21/16 10/22/16 15:00 23:00 07:00 Intake Total 900 ml Balance 900 ml Exam Constitutional: alert, oriented Psych: no complaints Head: atraumatic, normocephalic Eyes: nl conjunctiva ENMT: nl external ears & nose Neck: non-tender, supple Respiratory: clear to auscultation, normal air movement Cardiovascular: nl pulses, regular rate and rhythm Gastrointestinal: non-tender, soft Musculoskeletal: nl extremities to inspection Extremities: normal pulses Neurological: COFFEE BREWER II-XII intact Skin: nl turgor Results Result Diagram: 10/22/16 0702 10/22/16 0702 Results 24 hrs Laboratory Tests Test 10/21/16 21:24 10/22/16 07:02 10/22/16 08:18 10/22/16 11:59 Bedside Glucose 127 184 187 White Blood Count 7.0 Red Blood Count 3.97 L Hemoglobin 11.4 L Hematocrit 34.9 L Mean Corpuscular Volume 87.9 Mean Corpuscular Hemoglobin 28.7 L Mean Corpuscular Hemoglobin Concent 32.7 Red Cell Distribution Width 14.3 Platelet Count 193 Mean Platelet Volume 10.7 H Neutrophils % 53.0 Lymphocytes % 30.3 Monocytes % 12.2 H Eosinophils % 3.3 Basophils % 0.9 Nucleated Red Blood Cells % 0.0 Neutrophils # 3.7 Lymphocytes # 2.1 Monocytes # 0.9 Eosinophils # 0.2 Basophils # 0.1 Nucleated Red Blood Cells # 0.0 Sodium Level 138 Potassium Level 4.1 Chloride Level 100 Carbon Dioxide Level 28 Anion Gap 14 Blood Urea Nitrogen 21 H Creatinine 0.73 Glucose Level 188 Hemoglobin A1c 7.5 H Calcium Level 9.1 Test 10/22/16 17:13 Bedside Glucose 117 Medications Medications Current Medications Alprazolam (Xanax) 0.5 mg Q8 PO Last administered on 10/22/16 14:42; Admin Dose 0.5 MG; Start 10/16/16 at 06:00 Amlodipine Besylate (Norvasc) 5 mg DAILY PO Last administered on 10/22/16 08: 42; Admin Dose 5 MG; Start 10/16/16 at 09:00 Aspirin (Aspirin) 81 mg DAILY PO Last administered on 10/22/16 08:41; Admin Dose 81 MG; Start 10/16/16 at 09:00 Atorvastatin Calcium (Lipitor) 80 mg HS PO Last administered on 10/21/16 22:19 ; Admin Dose 80 MG; Start 10/16/16 at 21:00 Baclofen (Lioresal) 10 mg BID PO Last administered on 10/22/16 08:41; Admin Dose 10 MG; Start 10/16/16 at 09:00 Carvedilol (Coreg) 12.5 mg BID PO Last administered on 10/22/16 08:40; Admin Dose 12.5 MG; Start 10/16/16 at 09:00 Clopidogrel Bisulfate (plaVIX) 75 mg DAILY PO Last administered on 10/22/16 08 :41; Admin Dose 75 MG; Start 10/16/16 at 09:00 Cyanocobalamin (Vitamin B12) 1,000 mcg DAILY PO Last administered on 10/22/16 08:41; Admin Dose 1,000 MCG; Start 10/16/16 at 09:00 Digoxin (Digoxin) 0.125 mg DAILY@13 PO Last administered on 10/22/16 12:00; Admin Dose 0.125 MG; Start 10/16/16 at 13:00 Docusate Sodium (Colace) 100 mg Q12H PRN PO CONSTIPATION Last administered on 14:19; Admin Dose 100 MG; Start 10/16/16 at 05:00 Furosemide (Lasix) 40 mg DAILY@06 PO Last administered on 10/22/16 06:23; Admin Dose 40 MG; Start 10/16/16 at 06:00 Gabapentin (Neurontin) 100 mg TID PO Last administered on 10/21/16 22:19; Admin Dose 100 MG; Start 10/16/16 at 09:00 Losartan Potassium (Cozaar) 50 mg Q12 PO Last administered on 10/22/16 08:41; Admin Dose 50 MG; Start 10/16/16 at 09:00 Nitroglycerin (Nitroglycerin (Sl Tab) 0.4 Mg) 1 tab [id number] PRN SL CHEST PAIN Last administered on 10/18/16 08:22; Admin Dose 1 TAB; Start 10/16/16 at 05:00 Pantoprazole (Protonix Tab) 40 mg DAILY@06 PO Last administered on 10/22/16 06 :22; Admin Dose 40 MG; Start 10/16/16 at 06:00 Phenytoin (Dilantin) 300 mg HS PO Last administered on 10/21/16 22:26; Admin Dose 300 MG; Start 10/16/16 at 21:00 Potassium Chloride (Klor-Con 10) 10 meq DAILY PO Last administered on 08:40; Admin Dose 10 MEQ; Start 10/16/16 at 09:00 Ranolazine (Ranexa) 1,000 mg BID PO Last administered on 10/22/16 08:39; Admin Dose 1,000 MG; Start 10/16/16 at 09:00 Zolpidem Tartrate (Ambien) 10 mg QHS PRN PO INSOMNIA Last administered on 22:26; Admin Dose 10 MG; Start 10/16/16 at 05:00 Diagnostic Test (Pha) (Accu-Chek) 1 ea 02 XX Last administered on 10/18/16 02: 33; Admin Dose 1 EA; Start 10/17/16 at 02:00 Acetaminophen (Tylenol Tab) 650 mg Q4H PRN PO PAIN AND OR ELEVATED TEMP; Start 10/16/16 at 05:00 Enoxaparin Sodium (Lovenox) 40 mg DAILY SC Last administered on 10/22/16 08:46 ; Admin Dose 40 MG; Start 10/16/16 at 09:00 Hydromorphone HCl (Dilaudid) 1 mg Q4H PRN IV PAIN Last administered on 17:59; Admin Dose 1 MG; Start 10/16/16 at 05:00 Miscellaneous Information 1 ea NOTE XX ; Start 10/16/16 at 05:15 Glucose (Glutose) 15 gm Q15M PRN PO DECREASED GLUCOSE; Start 10/16/16 at 05:15 Glucose (Glutose) 22.5 gm Q15M PRN PO DECREASED GLUCOSE; Start 10/16/16 at 05: 15 Dextrose (D50w Syringe) 25 ml Q15M PRN IV DECREASED GLUCOSE; Start 10/16/16 at 05:15 Dextrose (D50w Syringe) 50 ml Q15M PRN IV DECREASED GLUCOSE; Start 10/16/16 at 05:15 Glucagon (Glucagen) 1 mg Q15M PRN IM DECREASED GLUCOSE; Start 10/16/16 at 05:15 Glucose (Glutose) 15 gm Q15M PRN BUCCAL DECREASED GLUCOSE; Start 10/16/16 at 05 :15 Morphine Sulfate (Ms Contin (Er)) 15 mg Q6 PO Last administered on 10/22/16 17 :25; Admin Dose 15 MG; Start 10/16/16 at 06:00 Isosorbide Dinitrate (Isordil) 10 mg TID PO Last administered on 10/22/16 12: 05; Admin Dose 10 MG; Start 10/17/16 at 21:00 Insulin Glargine (Lantus) 30 unit DAILY@08 SC Last administered on 10/22/16 08 :45; Admin Dose 30 UNIT; Start 10/22/16 at 08:00 LIBRADO MORENO October 22, 2016 18:10
[2016-10-22] MEDS: PHENYTOIN 100 MG CAP PO SCH (21:00)
[2016-10-22] MEDS: ATORVASTATIN 80 MG TAB PO SCH (21:01)
[2016-10-22] MEDS: ZOLPIDEM 5 MG TAB PO PRN (21:54)
[2016-10-23] VITALS (13 sets, daily range): BP systolic 106–156; BP diastolic 58–72; PULSE 60; RESP 18–20
[2016-10-23] MEDS: HYDROmorphONE 1 MG/ML SYG IV PRN ×6 (01:41→21:50)
[2016-10-23] MEDS: morphine (ER) 15 MG TAB PO SCH ×5 (05:42→21:49)
[2016-10-23] MEDS: PANTOPRAZOLE (EC) 40 MG TAB PO SCH (05:44)
[2016-10-23] MEDS: FUROSEMIDE 40 MG TAB PO SCH (05:45)
[2016-10-23] MEDS: ALPRAZOLAM 0.25 MG TAB PO SCH ×3 (05:48→21:49)
[2016-10-23] MEDS: INSULIN ASPART [NOVOLOG] 3 ML PEN SC SCH ×7 (08:00→20:37)
[2016-10-23] MEDS: RANOLAZINE (SR) 500 MG TAB PO SCH ×2 (08:22→20:34)
[2016-10-23] MEDS: ASPIRIN 81 MG TAB PO SCH (08:22)
[2016-10-23] MEDS: CYANOCOBALAMIN 500 MCG TAB PO SCH (08:23)
[2016-10-23] MEDS: CLOPIDOGREL 75 MG TAB PO SCH (08:25)
[2016-10-23] MEDS: AMLODIPINE 5 MG TAB PO SCH (08:25)
[2016-10-23] MEDS: LOSARTAN 50 MG TAB PO SCH ×2 (08:25→20:35)
[2016-10-23] MEDS: BACLOFEN 10 MG TAB PO SCH ×2 (08:26→20:35)
[2016-10-23] MEDS: POTASSIUM CHLORIDE (SR) 10 MEQ TAB PO SCH (08:26)
[2016-10-23] MEDS: ISOSORBIDE DINITRATE 10 MG TAB PO SCH ×3 (08:26→20:35)
[2016-10-23] MEDS: INSULIN GLARGINE [LANtus] 3 ML PEN SC SCH (08:35)
[2016-10-23] MEDS: ENOXAPARIN 40 MG/0.4 ML SYG SC SCH (08:35)
[2016-10-23] MEDS: GABAPENTIN 100 MG CAP PO SCH ×3 (08:35→20:35)
[2016-10-23 08:37] LABS: ADD SCAN DIFF NO
[2016-10-23 08:48] LABS: BASOPHILS % 0.6 % (0.0-2.0); EOSINOPHILS # 0.3 10^3/ul (0.0-0.5); HEMATOCRIT 35.4 % (42.0-52.0); HEMOGLOBIN 11.4 g/dl (14.0-18.0); LYMPHOCYTES # 1.9 10^3/ul (0.8-2.9); LYMPHOCYTES % 28.6 % (15.0-51.0); MEAN CORPUSCULAR HEMOGLOBIN 28.1 pg (29.0-33.0); MEAN CORPUSCULAR HGB CONC 32.2 g/dl (32.0-37.0); MEAN CORPUSCULAR VOLUME 87.2 fl (82.0-101.0); MEAN PLATELET VOLUME 10.7 fl (7.4-10.4); MONOCYTE # 0.8 10^3/ul (0.3-0.9); MONOCYTES % 12.5 % (0.0-11.0); NEUTROPHIL # 3.5 10^3/ul (1.6-7.5); PLATELET COUNT 196 10^3/UL (140-415); RED BLOOD COUNT 4.06 10^6/ul (4.70-6.10); RED CELL DISTRIBUTION WIDTH 14.2 % (11.5-14.5); WHITE BLOOD COUNT 6.5 10^3/ul (4.8-10.8)
[2016-10-23 09:10] LABS: CALCIUM 8.7 mg/dl (8.4-10.2); CREATININE 0.86 mg/dl (0.61-1.24); POTASSIUM 3.9 mmol/L (3.5-5.1)
[2016-10-23] MEDS: DIGOXIN 0.125 MG TAB PO SCH (12:35)
--- NOTE | 2016-10-23 18:14 | PN ---
Date/Time of Note Date/Time of Note DATE: 10/23/16 TIME: 18:12 Assessment/Plan VTE Prophylaxis VTE Prophylaxis Intervention: SCD's Lines/Catheters IV Catheter Type (from Rust): Peripheral IV Urinary Cath still in place: No Assessment/Plan Chief Complaint/Hosp Course Patient is content complains of intermittent intermittent chest pain, denies shortness of breath, a paced on telemetry. ASSESSMENT AND PLAN: - Poorly controlled diabetes mellitus. Hgb A1 c 7.5, continue to monitor blood sugar q. before meals and at bedtime, continue Lantus and pre-meal NovoLog. - Chest pain, rule out acute coronary syndrome. Continue nitroglycerin and morphine and Imdur. Dr. Olsen is following in cardiology consultation. Continue to monitor patient on telemetry floor. - Severe systolic and diastolic congestive heart failure with ejection fraction of 35% with acute on chronic. Continue Lasix, monitor intake and output. - Coronary artery disease status post coronary artery bypass graft and status post angioplasty to the left anterior descending. Continue Aspirin and Plavix. - Cardiomyopathy. - Hypertension. - Hyperlipidemia. Continue statin - Carotid stenosis. - Possible vascular dementia. - Anemia. - Seizure disorder. Continue Dilantin Further recommendations based on clinical course. Plan of care discussed with Dr. Wright. Problems: Exam/Review of Systems Vital Signs Vitals Vital Signs Date Time Temp Pulse Resp B/P Pulse Ox O2 Delivery O2 Flow Rate FiO2 10/23/16 16:00 60 10/23/16 15:36 98.4 18 106/58 96 Intake and Output 10/22/16 10/22/16 10/23/16 15:00 23:00 07:00 Intake Total 1000 ml 500 ml Balance 1000 ml 500 ml Exam Constitutional: alert, oriented Psych: no complaints Head: atraumatic, normocephalic Eyes: nl conjunctiva ENMT: nl external ears & nose Neck: non-tender, supple Respiratory: clear to auscultation, normal air movement Cardiovascular: nl pulses, regular rate and rhythm Gastrointestinal: non-tender, soft Musculoskeletal: nl extremities to inspection Extremities: normal pulses Neurological: JELLY FILTER TENDER II-XII intact Skin: nl turgor Results Result Diagram: 10/23/16 0730 10/23/16 0730 Results 24 hrs Laboratory Tests Test 10/22/16 21:00 10/23/16 07:30 10/23/16 08:06 10/23/16 11:53 Bedside Glucose 102 238 H 277 H White Blood Count 6.5 Red Blood Count 4.06 L Hemoglobin 11.4 L Hematocrit 35.4 L Mean Corpuscular Volume 87.2 Mean Corpuscular Hemoglobin 28.1 L Mean Corpuscular Hemoglobin Concent 32.2 Red Cell Distribution Width 14.2 Platelet Count 196 Mean Platelet Volume 10.7 H Neutrophils % 54.0 Lymphocytes % 28.6 Monocytes % 12.5 H Eosinophils % 4.0 Basophils % 0.6 Nucleated Red Blood Cells % 0.0 Neutrophils # 3.5 Lymphocytes # 1.9 Monocytes # 0.8 Eosinophils # 0.3 Basophils # 0.0 Nucleated Red Blood Cells # 0.0 Sodium Level 134 L Potassium Level 3.9 Chloride Level 100 Carbon Dioxide Level 27 Anion Gap 11 Blood Urea Nitrogen 20 Creatinine 0.86 Glucose Level 240 H Calcium Level 8.7 Test 10/23/16 17:08 Bedside Glucose 115 Medications Medications Current Medications Alprazolam (Xanax) 0.5 mg Q8 PO Last administered on 10/23/16 13:51; Admin Dose 0.5 MG; Start 10/16/16 at 06:00 Amlodipine Besylate (Norvasc) 5 mg DAILY PO Last administered on 10/23/16 08: 25; Admin Dose 5 MG; Start 10/16/16 at 09:00 Aspirin (Aspirin) 81 mg DAILY PO Last administered on 10/23/16 08:22; Admin Dose 81 MG; Start 10/16/16 at 09:00 Atorvastatin Calcium (Lipitor) 80 mg HS PO Last administered on 10/22/16 21:01 ; Admin Dose 80 MG; Start 10/16/16 at 21:00 Baclofen (Lioresal) 10 mg BID PO Last administered on 10/23/16 08:26; Admin Dose 10 MG; Start 10/16/16 at 09:00 Carvedilol (Coreg) 12.5 mg BID PO Last administered on 10/23/16 08:25; Admin Dose 12.5 MG; Start 10/16/16 at 09:00 Clopidogrel Bisulfate (plaVIX) 75 mg DAILY PO Last administered on 10/23/16 08 :25; Admin Dose 75 MG; Start 10/16/16 at 09:00 Cyanocobalamin (Vitamin B12) 1,000 mcg DAILY PO Last administered on 10/23/16 08:23; Admin Dose 1,000 MCG; Start 10/16/16 at 09:00 Digoxin (Digoxin) 0.125 mg DAILY@13 PO Last administered on 10/23/16 12:35; Admin Dose 0.125 MG; Start 10/16/16 at 13:00 Docusate Sodium (Colace) 100 mg Q12H PRN PO CONSTIPATION Last administered on 14:19; Admin Dose 100 MG; Start 10/16/16 at 05:00 Furosemide (Lasix) 40 mg DAILY@06 PO Last administered on 10/23/16 05:45; Admin Dose 40 MG; Start 10/16/16 at 06:00 Gabapentin (Neurontin) 100 mg TID PO Last administered on 10/22/16 21:01; Admin Dose 100 MG; Start 10/16/16 at 09:00 Losartan Potassium (Cozaar) 50 mg Q12 PO Last administered on 10/23/16 08:25; Admin Dose 50 MG; Start 10/16/16 at 09:00 Nitroglycerin (Nitroglycerin (Sl Tab) 0.4 Mg) 1 tab [id number] PRN SL CHEST PAIN Last administered on 10/18/16 08:22; Admin Dose 1 TAB; Start 10/16/16 at 05:00 Pantoprazole (Protonix Tab) 40 mg DAILY@06 PO Last administered on 10/23/16 05 :44; Admin Dose 40 MG; Start 10/16/16 at 06:00 Phenytoin (Dilantin) 300 mg HS PO Last administered on 10/22/16 21:00; Admin Dose 300 MG; Start 10/16/16 at 21:00 Potassium Chloride (Klor-Con 10) 10 meq DAILY PO Last administered on 08:26; Admin Dose 10 MEQ; Start 10/16/16 at 09:00 Ranolazine (Ranexa) 1,000 mg BID PO Last administered on 10/23/16 08:22; Admin Dose 1,000 MG; Start 10/16/16 at 09:00 Zolpidem Tartrate (Ambien) 10 mg QHS PRN PO INSOMNIA Last administered on 21:54; Admin Dose 10 MG; Start 10/16/16 at 05:00 Diagnostic Test (Pha) (Accu-Chek) 1 ea 02 XX Last administered on 10/18/16 02: 33; Admin Dose 1 EA; Start 10/17/16 at 02:00 Acetaminophen (Tylenol Tab) 650 mg Q4H PRN PO PAIN AND OR ELEVATED TEMP; Start 10/16/16 at 05:00 Enoxaparin Sodium (Lovenox) 40 mg DAILY SC Last administered on 10/23/16 08:35 ; Admin Dose 40 MG; Start 10/16/16 at 09:00 Hydromorphone HCl (Dilaudid) 1 mg Q4H PRN IV PAIN Last administered on 18:04; Admin Dose 1 MG; Start 10/16/16 at 05:00 Miscellaneous Information 1 ea NOTE XX ; Start 10/16/16 at 05:15 Glucose (Glutose) 15 gm Q15M PRN PO DECREASED GLUCOSE; Start 10/16/16 at 05:15 Glucose (Glutose) 22.5 gm Q15M PRN PO DECREASED GLUCOSE; Start 10/16/16 at 05: 15 Dextrose (D50w Syringe) 25 ml Q15M PRN IV DECREASED GLUCOSE; Start 10/16/16 at 05:15 Dextrose (D50w Syringe) 50 ml Q15M PRN IV DECREASED GLUCOSE; Start 10/16/16 at 05:15 Glucagon (Glucagen) 1 mg Q15M PRN IM DECREASED GLUCOSE; Start 10/16/16 at 05:15 Glucose (Glutose) 15 gm Q15M PRN BUCCAL DECREASED GLUCOSE; Start 10/16/16 at 05 :15 Morphine Sulfate (Ms Contin (Er)) 15 mg Q6 PO Last administered on 10/23/16 17 :20; Admin Dose 15 MG; Start 10/16/16 at 06:00 Isosorbide Dinitrate (Isordil) 10 mg TID PO Last administered on 10/23/16 12: 35; Admin Dose 10 MG; Start 10/17/16 at 21:00 Insulin Glargine (Lantus) 30 unit DAILY@08 SC Last administered on 10/23/16 08 :35; Admin Dose 30 UNIT; Start 10/22/16 at 08:00 LIBRADO MORENO October 23, 2016 18:14
--- NOTE | 2016-10-23 19:03 | CONS ---
Date/Time of Note Date/Time of Note DATE: 10/23/16 TIME: 18:56 Assessment/Plan Assessment/Plan Chief Complaint/Hosp Course IMPRESSION: 1. Chest pains/angina refractory to medical therapy at this time in a patient with known multivessel obstructive coronary artery disease and status post prior stenting without significant change in symptoms.-trop neg x 3 this admit 2. Congestive heart failure exacerbation, systolic, acute on chronic. 3. Cardiomyopathy with decreased left ventricular ejection fraction last known to be approximately 15% by echo at [facility] July 2016, but 35% by echo read here June 2016. 4. Coronary artery disease, status post coronary bypass graft surgery with all grafts occluded at last catheterization except KNOTT July 2016. 5. Hypertension. 6. Diabetes mellitus. 7. Possible seizure disorder on medications. 8. Anemia, mild. Recc: -Tele -serial ecg's -Continue coreg/losartan -Continue norvasc/isordil/ranexa -Continue asa/plavix -Continue daily lasix and follow volume status closely -Will discuss possible presentation to [facility] and /or transfer with family/ alex and with digital traffic coordinator at [facility] Swati. Patient has been accepted for listing on transplant list and [facility] is willing to take patient in transfer but currently his insurance will not approve the transfer or listng and thus family is attempting to be taken off of [facility] and become straight medical . Problems: Consultation Date/Type/Reason Admit Date/Time October 16, 2016 at 02:54 Initial Consult Date 10/16/2016 Type of Consultation: Cardiology Reason for Consultation Angina/cardiomyopathy Referring Provider: [place] ALEXANDER MD Exam/Review of Systems Vital Signs Vitals Vital Signs Date Time Temp Pulse Resp B/P Pulse Ox O2 Delivery O2 Flow Rate FiO2 10/23/16 16:00 60 10/23/16 15:36 98.4 18 106/58 96 Intake and Output 10/22/16 10/22/16 10/23/16 15:00 23:00 07:00 Intake Total 1000 ml 500 ml Balance 1000 ml 500 ml Exam Review of Systems: CONSTITUTIONAL: No fevers, chills. PULMONARY: No sob CARDIOVASCULAR: ongoing chest pain GASTROINTESTINAL: No nausea/vomiting. GENITOURINARY: No hematuria/dysuria. MUSCULOSKELETAL: No myagias/arthalgias. PSYCHIATRIC: The patient denies depression. NEUROLOGIC: No weakness Constitutional: alert Psych: no complaints Head: normocephalic ENMT: mucosa pink and moist Neck: jvd (9 cm water), supple Respiratory: diminished breath sounds Cardiovascular: regular rate and rhythm Gastrointestinal: non-tender, soft Musculoskeletal: muscle tone (normal) Extremities: edema (none) Neurological: other (No focal deficits) Results Result Diagram: 10/23/16 0730 10/23/16 0730 Results 24 hrs Laboratory Tests Test 10/22/16 21:00 10/23/16 07:30 10/23/16 08:06 10/23/16 11:53 Bedside Glucose 102 238 H 277 H White Blood Count 6.5 Red Blood Count 4.06 L Hemoglobin 11.4 L Hematocrit 35.4 L Mean Corpuscular Volume 87.2 Mean Corpuscular Hemoglobin 28.1 L Mean Corpuscular Hemoglobin Concent 32.2 Red Cell Distribution Width 14.2 Platelet Count 196 Mean Platelet Volume 10.7 H Neutrophils % 54.0 Lymphocytes % 28.6 Monocytes % 12.5 H Eosinophils % 4.0 Basophils % 0.6 Nucleated Red Blood Cells % 0.0 Neutrophils # 3.5 Lymphocytes # 1.9 Monocytes # 0.8 Eosinophils # 0.3 Basophils # 0.0 Nucleated Red Blood Cells # 0.0 Sodium Level 134 L Potassium Level 3.9 Chloride Level 100 Carbon Dioxide Level 27 Anion Gap 11 Blood Urea Nitrogen 20 Creatinine 0.86 Glucose Level 240 H Calcium Level 8.7 Test 10/23/16 17:08 Bedside Glucose 115 Medications Medications Current Medications Alprazolam (Xanax) 0.5 mg Q8 PO Last administered on 10/23/16 13:51; Admin Dose 0.5 MG; Start 10/16/16 at 06:00 Amlodipine Besylate (Norvasc) 5 mg DAILY PO Last administered on 10/23/16 08: 25; Admin Dose 5 MG; Start 10/16/16 at 09:00 Aspirin (Aspirin) 81 mg DAILY PO Last administered on 10/23/16 08:22; Admin Dose 81 MG; Start 10/16/16 at 09:00 Atorvastatin Calcium (Lipitor) 80 mg HS PO Last administered on 10/22/16 21:01 ; Admin Dose 80 MG; Start 10/16/16 at 21:00 Baclofen (Lioresal) 10 mg BID PO Last administered on 10/23/16 08:26; Admin Dose 10 MG; Start 10/16/16 at 09:00 Carvedilol (Coreg) 12.5 mg BID PO Last administered on 10/23/16 08:25; Admin Dose 12.5 MG; Start 10/16/16 at 09:00 Clopidogrel Bisulfate (plaVIX) 75 mg DAILY PO Last administered on 10/23/16 08 :25; Admin Dose 75 MG; Start 10/16/16 at 09:00 Cyanocobalamin (Vitamin B12) 1,000 mcg DAILY PO Last administered on 10/23/16 08:23; Admin Dose 1,000 MCG; Start 10/16/16 at 09:00 Digoxin (Digoxin) 0.125 mg DAILY@13 PO Last administered on 10/23/16 12:35; Admin Dose 0.125 MG; Start 10/16/16 at 13:00 Docusate Sodium (Colace) 100 mg Q12H PRN PO CONSTIPATION Last administered on 14:19; Admin Dose 100 MG; Start 10/16/16 at 05:00 Furosemide (Lasix) 40 mg DAILY@06 PO Last administered on 10/23/16 05:45; Admin Dose 40 MG; Start 10/16/16 at 06:00 Gabapentin (Neurontin) 100 mg TID PO Last administered on 10/22/16 21:01; Admin Dose 100 MG; Start 10/16/16 at 09:00 Losartan Potassium (Cozaar) 50 mg Q12 PO Last administered on 10/23/16 08:25; Admin Dose 50 MG; Start 10/16/16 at 09:00 Nitroglycerin (Nitroglycerin (Sl Tab) 0.4 Mg) 1 tab [id number] PRN SL CHEST PAIN Last administered on 10/18/16 08:22; Admin Dose 1 TAB; Start 10/16/16 at 05:00 Pantoprazole (Protonix Tab) 40 mg DAILY@06 PO Last administered on 10/23/16 05 :44; Admin Dose 40 MG; Start 10/16/16 at 06:00 Phenytoin (Dilantin) 300 mg HS PO Last administered on 10/22/16 21:00; Admin Dose 300 MG; Start 10/16/16 at 21:00 Potassium Chloride (Klor-Con 10) 10 meq DAILY PO Last administered on 08:26; Admin Dose 10 MEQ; Start 10/16/16 at 09:00 Ranolazine (Ranexa) 1,000 mg BID PO Last administered on 10/23/16 08:22; Admin Dose 1,000 MG; Start 10/16/16 at 09:00 Zolpidem Tartrate (Ambien) 10 mg QHS PRN PO INSOMNIA Last administered on 21:54; Admin Dose 10 MG; Start 10/16/16 at 05:00 Diagnostic Test (Pha) (Accu-Chek) 1 ea 02 XX Last administered on 10/18/16 02: 33; Admin Dose 1 EA; Start 10/17/16 at 02:00 Acetaminophen (Tylenol Tab) 650 mg Q4H PRN PO PAIN AND OR ELEVATED TEMP; Start 10/16/16 at 05:00 Enoxaparin Sodium (Lovenox) 40 mg DAILY SC Last administered on 10/23/16 08:35 ; Admin Dose 40 MG; Start 10/16/16 at 09:00 Hydromorphone HCl (Dilaudid) 1 mg Q4H PRN IV PAIN Last administered on 18:04; Admin Dose 1 MG; Start 10/16/16 at 05:00 Miscellaneous Information 1 ea NOTE XX ; Start 10/16/16 at 05:15 Glucose (Glutose) 15 gm Q15M PRN PO DECREASED GLUCOSE; Start 10/16/16 at 05:15 Glucose (Glutose) 22.5 gm Q15M PRN PO DECREASED GLUCOSE; Start 10/16/16 at 05: 15 Dextrose (D50w Syringe) 25 ml Q15M PRN IV DECREASED GLUCOSE; Start 10/16/16 at 05:15 Dextrose (D50w Syringe) 50 ml Q15M PRN IV DECREASED GLUCOSE; Start 10/16/16 at 05:15 Glucagon (Glucagen) 1 mg Q15M PRN IM DECREASED GLUCOSE; Start 10/16/16 at 05:15 Glucose (Glutose) 15 gm Q15M PRN BUCCAL DECREASED GLUCOSE; Start 10/16/16 at 05 :15 Morphine Sulfate (Ms Contin (Er)) 15 mg Q6 PO Last administered on 10/23/16 17 :20; Admin Dose 15 MG; Start 10/16/16 at 06:00 Isosorbide Dinitrate (Isordil) 10 mg TID PO Last administered on 10/23/16 12: 35; Admin Dose 10 MG; Start 10/17/16 at 21:00 Insulin Glargine (Lantus) 30 unit DAILY@08 SC Last administered on 10/23/16 08 :35; Admin Dose 30 UNIT; Start 10/22/16 at 08:00 NICHOL ACOSTA October 23, 2016 19:03
[2016-10-23] MEDS: PHENYTOIN 100 MG CAP PO SCH (20:34)
[2016-10-23] MEDS: ATORVASTATIN 80 MG TAB PO SCH (20:34)
[2016-10-23] MEDS: ACCU-CHEK XX SCH (20:37)
[2016-10-23] MEDS: ZOLPIDEM 5 MG TAB PO PRN (21:49)
[2016-10-24] VITALS (10 sets, daily range): BP systolic 108–126; BP diastolic 57–63; PULSE 60; RESP 18–19
[2016-10-24] MEDS: HYDROmorphONE 1 MG/ML SYG IV PRN ×5 (01:53→17:51)
[2016-10-24] MEDS: PANTOPRAZOLE (EC) 40 MG TAB PO SCH (05:52)
[2016-10-24] MEDS: FUROSEMIDE 40 MG TAB PO SCH (05:53)
[2016-10-24] MEDS: ALPRAZOLAM 0.25 MG TAB PO SCH ×2 (05:53→13:43)
[2016-10-24] MEDS: morphine (ER) 15 MG TAB PO SCH ×3 (05:53→17:51)
[2016-10-24 07:15] LABS: ADD SCAN DIFF NO
[2016-10-24 07:22] LABS: BASOPHIL # 0.1 10^3/ul (0.0-0.1); EOSINOPHILS # 0.3 10^3/ul (0.0-0.5); EOSINOPHILS % 4.2 % (0.0-7.0); HEMATOCRIT 35.7 % (42.0-52.0); HEMOGLOBIN 11.7 g/dl (14.0-18.0); LYMPHOCYTES % 32.4 % (15.0-51.0); MEAN CORPUSCULAR HEMOGLOBIN 28.7 pg (29.0-33.0); MEAN CORPUSCULAR HGB CONC 32.8 g/dl (32.0-37.0); MEAN CORPUSCULAR VOLUME 87.5 fl (82.0-101.0); MEAN PLATELET VOLUME 10.5 fl (7.4-10.4); MONOCYTE # 0.8 10^3/ul (0.3-0.9); MONOCYTES % 12.8 % (0.0-11.0); NEUTROPHILS % 49.3 % (39.0-77.0); PLATELET COUNT 211 10^3/UL (140-415); RED BLOOD COUNT 4.08 10^6/ul (4.70-6.10); RED CELL DISTRIBUTION WIDTH 13.9 % (11.5-14.5); WHITE BLOOD COUNT 6.2 10^3/ul (4.8-10.8)
[2016-10-24 07:47] LABS: CALCIUM 9.2 mg/dl (8.4-10.2); CREATININE 0.74 mg/dl (0.61-1.24); POTASSIUM 4.2 mmol/L (3.5-5.1)
[2016-10-24] MEDS: CLOPIDOGREL 75 MG TAB PO SCH (08:12)
[2016-10-24] MEDS: POTASSIUM CHLORIDE (SR) 10 MEQ TAB PO SCH (08:13)
[2016-10-24] MEDS: ASPIRIN 81 MG TAB PO SCH (08:13)
[2016-10-24] MEDS: RANOLAZINE (SR) 500 MG TAB PO SCH (08:14)
[2016-10-24] MEDS: BACLOFEN 10 MG TAB PO SCH (08:14)
[2016-10-24] MEDS: CYANOCOBALAMIN 500 MCG TAB PO SCH (08:14)
[2016-10-24] MEDS: ISOSORBIDE DINITRATE 10 MG TAB PO SCH ×2 (08:15→13:00)
[2016-10-24] MEDS: LOSARTAN 50 MG TAB PO SCH (08:17)
[2016-10-24] MEDS: GABAPENTIN 100 MG CAP PO SCH ×2 (08:17→13:00)
[2016-10-24] MEDS: AMLODIPINE 5 MG TAB PO SCH (08:17)
[2016-10-24] MEDS: INSULIN ASPART [NOVOLOG] 3 ML PEN SC SCH ×6 (08:23→17:24)
[2016-10-24] MEDS: INSULIN GLARGINE [LANtus] 3 ML PEN SC SCH (08:29)
[2016-10-24] MEDS: ENOXAPARIN 40 MG/0.4 ML SYG SC SCH (08:30)
[2016-10-24] MEDS: DIGOXIN 0.125 MG TAB PO SCH (13:44)
[2016-10-24] MEDS ORDERED: LANT3I SC (18:33)
[2016-10-24] MEDS ORDERED: NOVO3I SC (18:33)
[2016-10-24] MEDS ORDERED: HYDR2TAB15 PO (18:38)
--- NOTE | 2016-10-24 18:43 | DS ---
Date/Time of Note Date/Time of Note DATE: 10/24/16 TIME: 18:43 Discharge Summary Admission/Discharge Info Admit Date/Time October 16, 2016 at 02:54 Discharge Date/Time Hospital Course IMPRESSION: 1. Chest pains/angina refractory to medical therapy at this time in a patient with known multivessel obstructive coronary artery disease and status post prior stenting without significant change in symptoms.-trop neg x 3 this admit 2. Congestive heart failure exacerbation, systolic, acute on chronic. 3. Cardiomyopathy with decreased left ventricular ejection fraction last known to be approximately 15% by echo at [facility] July 2016, but 35% by echo read here June 2016. 4. Coronary artery disease, status post coronary bypass graft surgery with all grafts occluded at last catheterization except KNOTT July 2016. 5. Hypertension. 6. Diabetes mellitus. 7. Possible seizure disorder on medications. 8. Anemia, mild. Recc: -Tele -serial ecg's -Continue coreg/losartan -Continue norvasc/isordil/ranexa -Continue asa/plavix -Continue daily lasix and follow volume status closely -Will discuss possible presentation to [facility] and /or transfer with family/ felibertoter and with hospital coordinator at [facility] Swati. Patient has been accepted for listing on transplant list and [facility] is willing to take patient in transfer but currently his insurance will not approve the transfer or listng and thus family is attempting to be taken off of [facility] and become straight medical . Home Meds Active Scripts Hydromorphone Hcl* (Dilaudid*) 2 Mg Tablet, 2 MG PO Q8H Y for PAIN LEVEL 6-10, # 14 TAB Prov:AGA BARNETT 10/24/16 Insulin Aspart* (Novolog Insulin Pen*) 100 Unit/Ml Soln, 10 UNIT SC WITH MEALS for 30 Days Prov:AGA BARNETT 10/24/16 Insulin Glargine* (Lantus*) 100 Unit/Ml Soln, 30 UNIT SC DAILY@08 for 30 Days Prov:AGA BARNETT 10/24/16 Docusate Sodium (Dok) 100 Mg Capsule, 100 MG PO Q12H Y for CONSTIPATION for 28 Days, CAP Prov:CARLOS MARTINEZ MD 09/22/16 Digoxin* (Digitek*) 125 Mcg Tablet, 0.125 MG PO DAILY@13 for 14 Days, TAB Prov:CARLOS MARTINEZ MD 09/22/16 Atorvastatin* (Atorvastatin*) 80 Mg Tablet, 80 MG PO HS for 14 Days, TAB Prov:CARLOS MARTINEZ MD 09/22/16 Losartan Potassium* (Cozaar*) 50 Mg Tab, 50 MG PO Q12, #60 TAB Prov:ALIZA CUENCA MD 12/22/14 Reported Medications Zolpidem Tartrate* (Zolpidem Tartrate*) 10 Mg Tablet, 10 MG PO QHS Y for INSOMNIA, #30 TAB 10/16/16 Potassium Chloride (Klor-Con) 10 Meq Tablet.sa, 10 MEQ PO DAILY, TAB.SA 10/16/16 Phenytoin* Sodium Extended (Dilantin*) 100 Mg Capsule, 300 MG PO HS, CAP 10/16/16 Nitroglycerin* (Nitrostat*) 0.4 Mg Tab.subl, 0.4 MG SL Q5MIN Y for CHEST PAIN, BOTTLE 10/16/16 Isosorbide Mononitrate* (Isosorbide Mononitrate*) 30 Mg Tab.er.24h, 30 MG PO QAM , TAB 10/16/16 Hydromorphone Hcl* (Hydromorphone Hcl*) 2 Mg Tablet, 4 MG PO Q6H Y for PAIN, TAB 10/16/16 Glimepiride* (Glimepiride*) 1 Mg Tablet, 1 MG PO WITH BREAKFAST, TAB 10/16/16 Gabapentin* (Gabapentin*) 100 Mg Capsule, 100 MG PO QID for 14 Days, #90 CAP 10/16/16 Furosemide* (Furosemide*) 40 Mg Tablet, 40 MG PO DAILY, TAB 10/16/16 Ranolazine* (Ranexa*) 1,000 Mg Tab.sr.12h, 1000 MG PO BID, TAB 09/18/16 Pantoprazole* (Pantoprazole*) 40 Mg Tablet.dr, 40 MG PO DAILY, TAB 09/18/16 Morphine Sulfate* (Ms Contin*) 15 Mg Tablet.sa, 2 MG PO Q6, TAB 09/18/16 Metformin Hcl* (Metformin Hcl*) 1,000 Mg Tablet, 1000 MG PO WITH BREAKFAST DINNE , #60 TAB 09/18/16 Aspirin* (Aspirin* Chew) 81 Mg Tab.chew, 81 MG PO DAILY, TAB.CHEW 07/16/16 Cyanocobalamin* (Vitamin B-12*) 1,000 Mcg Tablet.sa, 1000 MCG PO DAILY, TAB 06/16/16 Baclofen* (Baclofen*) 10 Mg Tablet, 10 MG PO BID, TAB 06/16/16 Alprazolam* (Alprazolam*) 0.5 Mg Tablet, 0.5 MG PO Q8 for ANXIETY, TAB 05/18/14 Clopidogrel Bisulfate (Clopidogrel) 75 Mg Tablet, 75 MG PO DAILY, TAB 04/26/14 Carvedilol* (Carvedilol*) 12.5 Mg Tablet, 12.5 MG PO BID, TAB 04/26/14 Amlodipine Besylate* (Amlodipine Besylate*) 5 Mg Tablet, 5 MG PO DAILY, TAB 04/26/14 Discontinued Reported Medications Insulin Isophan/Regular (Humulin 70/30) 100 Units/Ml Susp, 15 UNIT SC HS, EA 10/16/16 Insulin Isophan/Regular (Humulin 70/30) 100 Units/Ml Susp, 25 UNIT SC AC BREAKFAST, EA 10/16/16 Atorvastatin* (Atorvastatin*) 40 Mg Tablet, 40 MG PO QHS, #30 TAB 10/16/16 Insulin Isophan/Regular (Humulin 70/30) 100 Units/Ml Susp, 15 UNIT SC QHS, EA 10/16/16 Insulin Aspart (Novolog FlexPen) 100 Unit/1 Ml Insuln.pen, 0 SC SLIDING SCALE ACHS, EA 07/16/16 Primary Care Provider Not On Staff Doctor Pending Labs Laboratory Tests Test 10/23/16 20:37 10/24/16 06:28 10/24/16 07:47 10/24/16 11:40 Bedside Glucose 96mg/dL (70-220) 226mg/dL (70-220) 224mg/dL (70-220) White Blood Count 6.210^3/ul (4.8-10.8) Red Blood Count 4.0810^6/ul (4.70-6.10) Hemoglobin 11.7g/dl (14.0-18.0) Hematocrit 35.7% (42.0-52.0) Mean Corpuscular Volume 87.5fl (82.0-101.0) Mean Corpuscular Hemoglobin 28.7pg (29.0-33.0) Mean Corpuscular Hemoglobin Concent 32.8g/dl (32.0-37.0) Red Cell Distribution Width 13.9% (11.5-14.5) Platelet Count 32669^3/UL (140-415) Mean Platelet Volume 10.5fl (7.4-10.4) Neutrophils % 49.3% (39.0-77.0) Lymphocytes % 32.4% (15.0-51.0) Monocytes % 12.8% (0.0-11.0) Eosinophils % 4.2% (0.0-7.0) Basophils % 1.0% (0.0-2.0) Nucleated Red Blood Cells % 0.0/100WBC (0.0-0.0) Neutrophils # 3.010^3/ul (1.6-7.5) Lymphocytes # 2.010^3/ul (0.8-2.9) Monocytes # 0.810^3/ul (0.3-0.9) Eosinophils # 0.310^3/ul (0.0-0.5) Basophils # 0.110^3/ul (0.0-0.1) Nucleated Red Blood Cells # 0.010^3/ul (0.0-0.0) Sodium Level 136mmol/L (135-144) Potassium Level 4.2mmol/L (3.5-5.1) Chloride Level 102mmol/L (97-110) Carbon Dioxide Level 29mmol/L (21-31) Anion Gap 9 (8-16) Blood Urea Nitrogen 18mg/dl (7-20) Creatinine 0.74mg/dl (0.61-1.24) Glucose Level 164mg/dl (70-220) Calcium Level 9.2mg/dl (8.4-10.2) Test 10/24/16 17:19 Bedside Glucose 204mg/dL (70-220) AGA BARNETT October 24, 2016 18:43
--- NOTE | 2016-10-24 19:32 | PDOCDIS ---
Discharge Instructions CONDITION Patient Condition: Stable HOME CARE INSTRUCTIONS: Special Diet: CC ACTIVITY: Activity Restrictions: Slowly Increase Activity Rest between Activity Avoid heavy lifting Do not operate Machinery Do not operate Power Tool Avoid Heavy Housework Bathing Restrictions: Sponge Bath FOLLOW UP/APPOINTMENTS Appointments FU with primary PMD X 1WEEK Fu with cardiology as recommended. Call 911 or go to the nearest hospital if symptoms get worse- patient verbalized undersatnding of discharge instructions. Plan dw Dr Wright/staff/ patient. AGA BARNETT October 24, 2016 19:32
--- NOTE | 2016-10-24 20:00 | CONS ---
Date/Time of Note Date/Time of Note DATE: 10/24/16 TIME: 19:57 Assessment/Plan Assessment/Plan Chief Complaint/Hosp Course IMPRESSION: 1. Chest pains/angina refractory to medical therapy at this time in a patient with known multivessel obstructive coronary artery disease and status post prior stenting without significant change in symptoms.-trop neg x 3 this admit 2. Congestive heart failure exacerbation, systolic, acute on chronic. 3. Cardiomyopathy with decreased left ventricular ejection fraction last known to be approximately 15% by echo at [facility] July 2016, but 35% by echo read here June 2016. 4. Coronary artery disease, status post coronary bypass graft surgery with all grafts occluded at last catheterization except KNOTT July 2016. 5. Hypertension. 6. Diabetes mellitus. 7. Possible seizure disorder on medications. 8. Anemia, mild. Recc: -Tele -Continue coreg/losartan -Continue norvasc/isordil/ranexa -Continue asa/plavix -Continue daily lasix and follow volume status closely -Will discuss possible presentation to [facility] and /or transfer with family/ felibertoter and with blood bank coordinator at [facility] Swati. Patient has been accepted for listing on transplant list and [facility] is willing to take patient in transfer but currently his insurance will not approve the transfer or listng and thus family is attempting to be taken off of HMO and become straight medical . -If remains stable D/C planning with outpatient f/u Problems: Consultation Date/Type/Reason Admit Date/Time October 16, 2016 at 02:54 Initial Consult Date 10/16/2016 Type of Consultation: Cardiology Reason for Consultation angina Referring Provider: [place] ALEXANDER MD Exam/Review of Systems Vital Signs Vitals Vital Signs Date Time Temp Pulse Resp B/P Pulse Ox O2 Delivery O2 Flow Rate FiO2 10/24/16 16:10 60 10/24/16 15:55 98.0 18 126/62 96 Intake and Output 10/23/16 10/23/16 10/24/16 15:00 23:00 07:00 Intake Total 720 ml Balance 720 ml Exam Review of Systems: CONSTITUTIONAL: No fevers, chills. PULMONARY: No sob CARDIOVASCULAR: intermittent chest pain GASTROINTESTINAL: No nausea/vomiting. GENITOURINARY: No hematuria/dysuria. MUSCULOSKELETAL: No myagias/arthalgias. PSYCHIATRIC: The patient denies depression. NEUROLOGIC: No weakness Constitutional: alert Psych: no complaints Head: normocephalic ENMT: mucosa pink and moist Neck: jvd (8-9 cm water), supple Respiratory: clear to auscultation Cardiovascular: regular rate and rhythm Gastrointestinal: non-tender, soft Musculoskeletal: muscle tone (normal) Extremities: edema (none) Neurological: other (No focal deficits) Results Result Diagram: 10/24/1662710/24/16627 Results 24 hrs Laboratory Tests Test 10/23/16 20:37 10/24/16 06:28 10/24/16 07:47 10/24/16 11:40 Bedside Glucose 96 226 H 224 H White Blood Count 6.2 Red Blood Count 4.08 L Hemoglobin 11.7 L Hematocrit 35.7 L Mean Corpuscular Volume 87.5 Mean Corpuscular Hemoglobin 28.7 L Mean Corpuscular Hemoglobin Concent 32.8 Red Cell Distribution Width 13.9 Platelet Count 211 Mean Platelet Volume 10.5 H Neutrophils % 49.3 Lymphocytes % 32.4 Monocytes % 12.8 H Eosinophils % 4.2 Basophils % 1.0 Nucleated Red Blood Cells % 0.0 Neutrophils # 3.0 Lymphocytes # 2.0 Monocytes # 0.8 Eosinophils # 0.3 Basophils # 0.1 Nucleated Red Blood Cells # 0.0 Sodium Level 136 Potassium Level 4.2 Chloride Level 102 Carbon Dioxide Level 29 Anion Gap 9 Blood Urea Nitrogen 18 Creatinine 0.74 Glucose Level 164 Calcium Level 9.2 Test 10/24/16 17:19 Bedside Glucose 204 Medications Medications Current Medications Alprazolam (Xanax) 0.5 mg Q8 PO Last administered on 10/24/16 13:43; Admin Dose 0.5 MG; Start 10/16/16 at 06:00 Amlodipine Besylate (Norvasc) 5 mg DAILY PO Last administered on 10/24/16 08: 17; Admin Dose 5 MG; Start 10/16/16 at 09:00 Aspirin (Aspirin) 81 mg DAILY PO Last administered on 10/24/16 08:13; Admin Dose 81 MG; Start 10/16/16 at 09:00 Atorvastatin Calcium (Lipitor) 80 mg HS PO Last administered on 10/23/16 20:34 ; Admin Dose 80 MG; Start 10/16/16 at 21:00 Baclofen (Lioresal) 10 mg BID PO Last administered on 10/24/16 08:14; Admin Dose 10 MG; Start 10/16/16 at 09:00 Carvedilol (Coreg) 12.5 mg BID PO Last administered on 10/24/16 08:16; Admin Dose 12.5 MG; Start 10/16/16 at 09:00 Clopidogrel Bisulfate (plaVIX) 75 mg DAILY PO Last administered on 10/24/16 08 :12; Admin Dose 75 MG; Start 10/16/16 at 09:00 Cyanocobalamin (Vitamin B12) 1,000 mcg DAILY PO Last administered on 10/24/16 08:14; Admin Dose 1,000 MCG; Start 10/16/16 at 09:00 Digoxin (Digoxin) 0.125 mg DAILY@13 PO Last administered on 10/24/16 13:44; Admin Dose 0.125 MG; Start 10/16/16 at 13:00 Docusate Sodium (Colace) 100 mg Q12H PRN PO CONSTIPATION Last administered on 14:19; Admin Dose 100 MG; Start 10/16/16 at 05:00 Furosemide (Lasix) 40 mg DAILY@06 PO Last administered on 10/24/16 05:53; Admin Dose 40 MG; Start 10/16/16 at 06:00 Gabapentin (Neurontin) 100 mg TID PO Last administered on 10/23/16 20:35; Admin Dose 100 MG; Start 10/16/16 at 09:00 Losartan Potassium (Cozaar) 50 mg Q12 PO Last administered on 10/24/16 08:17; Admin Dose 50 MG; Start 10/16/16 at 09:00 Nitroglycerin (Nitroglycerin (Sl Tab) 0.4 Mg) 1 tab [id number] PRN SL CHEST PAIN Last administered on 10/18/16 08:22; Admin Dose 1 TAB; Start 10/16/16 at 05:00 Pantoprazole (Protonix Tab) 40 mg DAILY@06 PO Last administered on 10/24/16 05 :52; Admin Dose 40 MG; Start 10/16/16 at 06:00 Phenytoin (Dilantin) 300 mg HS PO Last administered on 10/23/16 20:34; Admin Dose 300 MG; Start 10/16/16 at 21:00 Potassium Chloride (Klor-Con 10) 10 meq DAILY PO Last administered on 08:13; Admin Dose 10 MEQ; Start 10/16/16 at 09:00 Ranolazine (Ranexa) 1,000 mg BID PO Last administered on 10/24/16 08:14; Admin Dose 1,000 MG; Start 10/16/16 at 09:00 Zolpidem Tartrate (Ambien) 10 mg QHS PRN PO INSOMNIA Last administered on 21:49; Admin Dose 10 MG; Start 10/16/16 at 05:00 Diagnostic Test (Pha) (Accu-Chek) 1 ea 02 XX Last administered on 10/18/16 02: 33; Admin Dose 1 EA; Start 10/17/16 at 02:00 Acetaminophen (Tylenol Tab) 650 mg Q4H PRN PO PAIN AND OR ELEVATED TEMP; Start 10/16/16 at 05:00 Enoxaparin Sodium (Lovenox) 40 mg DAILY SC Last administered on 10/24/16 08:30 ; Admin Dose 40 MG; Start 10/16/16 at 09:00 Hydromorphone HCl (Dilaudid) 1 mg Q4H PRN IV PAIN Last administered on 17:51; Admin Dose 1 MG; Start 10/16/16 at 05:00 Miscellaneous Information 1 ea NOTE XX ; Start 10/16/16 at 05:15 Glucose (Glutose) 15 gm Q15M PRN PO DECREASED GLUCOSE; Start 10/16/16 at 05:15 Glucose (Glutose) 22.5 gm Q15M PRN PO DECREASED GLUCOSE; Start 10/16/16 at 05: 15 Dextrose (D50w Syringe) 25 ml Q15M PRN IV DECREASED GLUCOSE; Start 10/16/16 at 05:15 Dextrose (D50w Syringe) 50 ml Q15M PRN IV DECREASED GLUCOSE; Start 10/16/16 at 05:15 Glucagon (Glucagen) 1 mg Q15M PRN IM DECREASED GLUCOSE; Start 10/16/16 at 05:15 Glucose (Glutose) 15 gm Q15M PRN BUCCAL DECREASED GLUCOSE; Start 10/16/16 at 05 :15 Morphine Sulfate (Ms Contin (Er)) 15 mg Q6 PO Last administered on 10/24/16 17 :51; Admin Dose 15 MG; Start 10/16/16 at 06:00 Isosorbide Dinitrate (Isordil) 10 mg TID PO Last administered on 10/24/16 08: 15; Admin Dose 10 MG; Start 10/17/16 at 21:00 Insulin Glargine (Lantus) 30 unit DAILY@08 SC Last administered on 10/24/16 08 :29; Admin Dose 30 UNIT; Start 10/22/16 at 08:00 NICHOL ACOSTA October 24, 2016 20:00
== END 2016-10-24 20:16 | disposition home or self-care (01) | DRG 302 ==
LOC: E/R 01:21 → MS4 02:54
PROVIDERS: ADMIT Internal Medicine; ATTEND Internal Medicine
DX: I25.709 Atherosclerosis of coronary artery bypass graft(s), unspecified, with unspecified angina pectoris (principal); I50.43 Acute on chronic combined systolic (congestive) and diastolic (congestive) heart failure; Z76.82 Awaiting organ transplant status; I42.9 Cardiomyopathy, unspecified; I11.0 Hypertensive heart disease with heart failure; I65.29 Occlusion and stenosis of unspecified carotid artery; D64.9 Anemia, unspecified; E11.65 Type 2 diabetes mellitus with hyperglycemia; E78.5 Hyperlipidemia, unspecified; G40.909 Epilepsy, unspecified, not intractable, without status epilepticus; Z95.1 Presence of aortocoronary bypass graft; Z95.5 Presence of coronary angioplasty implant and graft; Z95.810 Presence of automatic (implantable) cardiac defibrillator; Z87.891 Personal history of nicotine dependence; Z79.4 Long term (current) use of insulin; Z79.84 Long term (current) use of oral hypoglycemic drugs; Z79.02 Long term (current) use of antithrombotics/antiplatelets; Z79.82 Long term (current) use of aspirin
CPT/HCPCS: 36415; 71010; 80048; 80053; 80061; 82962; 83036; 83880; 84484; 85025; 85610; 85730; 93005; 96374; 96375; J1170; J1650; J1815; J2270; J2405

== ENCOUNTER 2016-10-29 00:40 | Inpatient (IN) | payer MEDICAID, OTHER ==
[~2016-10-29] VITALS: Ht 167.6 cm; Wt 75.9 kg
[2016-10-29] VITALS (14 sets, daily range): BP systolic 129–164; BP diastolic 65–76; PULSE 56–60; RESP 17–22; TEMP 98; Ht 167.6 cm; Wt 75.9 kg
[~2016-10-29 00:40] MED LIST changes: -BISA5TAB6 PO; +GABA100C14 PO; +GLIM1TAB2 PO; +HYDR2TAB15 PO; +HYDR2TAB3 PO; -INSU100I22 SC; -ISOS20TA19 PO; +ISOS30TA5 PO; +LANT3I SC; -MECL-77 PO; +NOVO3I SC; -NOVO7030 SC; +PHEN100C PO; +POTA10TA97 PO; +ZOLP10TA5 PO
--- NOTE | 2016-10-29 00:47 | ERA ---
ER Documentation Chief Complaint Date/Time DATE: 10/29/16 TIME: 00:46 Chief Complaint Chest pain and shortness of breath HPI The patient is a 56-year-old male, presenting to the ER because of acute on chronic left-sided chest pain that is radiating down to her left arm, associated with shortness of breath. He was discharged to the hospital recently. He took 4 nitroglycerin and 2 baby aspirin at home without relief. He then called 911 and he was treated with 2 baby aspirin and 2 more nitroglycerin spray without response. He is supposed to have some Surgery at [facility] tomorrow; however, he does not know what procedure he is going to have. He denies headache, syncope, near syncope, neck pain, chest pain with exertion of vomiting or diaphoresis, abdominal pain, vomiting, dysuria, diarrhea. He used to smoke but quit date he denies drinking, he is on 2 L nasal cannula continuously at home Past medical history: CAD, history of CVA, hypertension, history of CHF, cardiomyopathy with low EF of 35% according to the June 2016 echocardiogram, diabetes mellitus, anemia Past surgical history: CABG, pacemaker/AICD, stent PCI ROS All systems reviewed and are negative except as per history of present illness. Medications Home Meds Active Scripts Hydromorphone Hcl* (Dilaudid*) 2 Mg Tablet, 2 MG PO Q8H Y for PAIN LEVEL 6-10, # 14 TAB Prov:AGA BARNETT 10/24/16 Insulin Aspart* (Novolog Insulin Pen*) 100 Unit/Ml Soln, 10 UNIT SC WITH MEALS for 30 Days Prov:AGA BARNETT 10/24/16 Insulin Glargine* (Lantus*) 100 Unit/Ml Soln, 30 UNIT SC DAILY@08 for 30 Days Prov:AGA BARNETT 10/24/16 Docusate Sodium (Dok) 100 Mg Capsule, 100 MG PO Q12H Y for CONSTIPATION for 28 Days, CAP Prov:CARLOS MARTINEZ MD 09/22/16 Digoxin* (Digitek*) 125 Mcg Tablet, 0.125 MG PO DAILY@13 for 14 Days, TAB Prov:CARLOS MARTINEZ MD 09/22/16 Atorvastatin* (Atorvastatin*) 80 Mg Tablet, 80 MG PO HS for 14 Days, TAB Prov:CARLOS MARTINEZ MD 09/22/16 Losartan Potassium* (Cozaar*) 50 Mg Tab, 50 MG PO Q12, #60 TAB Prov:ALIZA CUENCA MD 12/22/14 Reported Medications Zolpidem Tartrate* (Zolpidem Tartrate*) 10 Mg Tablet, 10 MG PO QHS Y for INSOMNIA, #30 TAB 10/16/16 Potassium Chloride (Klor-Con) 10 Meq Tablet.sa, 10 MEQ PO DAILY, TAB.SA 10/16/16 Phenytoin* Sodium Extended (Dilantin*) 100 Mg Capsule, 300 MG PO HS, CAP 10/16/16 Nitroglycerin* (Nitrostat*) 0.4 Mg Tab.subl, 0.4 MG SL Q5MIN Y for CHEST PAIN, BOTTLE 10/16/16 Isosorbide Mononitrate* (Isosorbide Mononitrate*) 30 Mg Tab.er.24h, 30 MG PO QAM , TAB 10/16/16 Hydromorphone Hcl* (Hydromorphone Hcl*) 2 Mg Tablet, 4 MG PO Q6H Y for PAIN, TAB 10/16/16 Glimepiride* (Glimepiride*) 1 Mg Tablet, 1 MG PO WITH BREAKFAST, TAB 10/16/16 Gabapentin* (Gabapentin*) 100 Mg Capsule, 100 MG PO QID for 14 Days, #90 CAP 10/16/16 Furosemide* (Furosemide*) 40 Mg Tablet, 40 MG PO DAILY, TAB 10/16/16 Ranolazine* (Ranexa*) 1,000 Mg Tab.sr.12h, 1000 MG PO BID, TAB 09/18/16 Pantoprazole* (Pantoprazole*) 40 Mg Tablet.dr, 40 MG PO DAILY, TAB 09/18/16 Morphine Sulfate* (Ms Contin*) 15 Mg Tablet.sa, 2 MG PO Q6, TAB 09/18/16 Metformin Hcl* (Metformin Hcl*) 1,000 Mg Tablet, 1000 MG PO WITH BREAKFAST DINNE , #60 TAB 09/18/16 Aspirin* (Aspirin* Chew) 81 Mg Tab.chew, 81 MG PO DAILY, TAB.CHEW 07/16/16 Cyanocobalamin* (Vitamin B-12*) 1,000 Mcg Tablet.sa, 1000 MCG PO DAILY, TAB 06/16/16 Baclofen* (Baclofen*) 10 Mg Tablet, 10 MG PO BID, TAB 06/16/16 Alprazolam* (Alprazolam*) 0.5 Mg Tablet, 0.5 MG PO Q8 for ANXIETY, TAB 05/18/14 Clopidogrel Bisulfate (Clopidogrel) 75 Mg Tablet, 75 MG PO DAILY, TAB 04/26/14 Carvedilol* (Carvedilol*) 12.5 Mg Tablet, 12.5 MG PO BID, TAB 04/26/14 Amlodipine Besylate* (Amlodipine Besylate*) 5 Mg Tablet, 5 MG PO DAILY, TAB 04/26/14 Discontinued Reported Medications Insulin Isophan/Regular (Humulin 70/30) 100 Units/Ml Susp, 15 UNIT SC HS, EA 10/16/16 Insulin Isophan/Regular (Humulin 70/30) 100 Units/Ml Susp, 25 UNIT SC AC BREAKFAST, EA 10/16/16 Atorvastatin* (Atorvastatin*) 40 Mg Tablet, 40 MG PO QHS, #30 TAB 10/16/16 Insulin Isophan/Regular (Humulin 70/30) 100 Units/Ml Susp, 15 UNIT SC QHS, EA 10/16/16 Insulin Aspart (Novolog FlexPen) 100 Unit/1 Ml Insuln.pen, 0 SC SLIDING SCALE ACHS, EA 07/16/16 Allergies Allergies: Coded Allergies: sumatriptan (Unverified Allergy, Unknown, 10/16/16) sumatriptan succinate (Unverified Allergy, Unknown, 10/16/16) venlafaxine HCl (Unverified Allergy, Unknown, 10/16/16) PMhx/Soc History of Surgery: Yes (CABG) Anesthesia Reaction: No Hx Neurological Disorder: Yes (CVA) Hx Respiratory Disorders: No Hx Cardiac Disorders: Yes (HTN, CAD, CABG, PACEMAKER) Hx Psychiatric Problems: No Hx Miscellaneous Medical Probl: No Hx Alcohol Use: No Hx Substance Use: No Hx Tobacco Use: No Physical Exam Vitals Vital Signs Date Time Temp Pulse Resp B/P Pulse Ox O2 Delivery O2 Flow Rate FiO2 10/29/16 01:01 Nasal Cannula 3 10/29/16 00:44 98.0 63 18 153/69 99 Physical Exam Const: No acute distress. Head: Atraumatic. Eyes: Normal Conjunctiva. ENT: Normal External Ears, Nose and Mouth. Neck: Full range of motion. No meningismus. Resp: Mild bibasilar crackles Cardio: Regular rate and rhythm, no murmurs. Abd: Soft, non distended, normal bowel sounds, non tender. Skin: No petechiae or rashes. Back: No midline or flank tenderness. Ext: No cyanosis, or edema. Neur: Awake and alert. No focal deficit Psych: Normal Mood and Affect. Result Diagram: 10/29/16 0110 10/29/16 0110 Results 24 hrs Laboratory Tests Test 10/29/16 01:10 White Blood Count 8.810^3/ul Red Blood Count 3.7510^6/ul Hemoglobin 10.9g/dl Hematocrit 32.5% Mean Corpuscular Volume 86.7fl Mean Corpuscular Hemoglobin 29.1pg Mean Corpuscular Hemoglobin Concent 33.5g/dl Red Cell Distribution Width 14.1% Platelet Count 28285^3/UL Mean Platelet Volume 10.0fl Neutrophils % 65.0% Lymphocytes % 23.3% Monocytes % 9.4% Eosinophils % 1.6% Basophils % 0.5% Nucleated Red Blood Cells % 0.0/100WBC Neutrophils # 5.810^3/ul Lymphocytes # 2.110^3/ul Monocytes # 0.810^3/ul Eosinophils # 0.110^3/ul Basophils # 0.010^3/ul Nucleated Red Blood Cells # 0.010^3/ul Prothrombin Time 13.2Sec Prothrombin Time Ratio 1.0 INR International Normalized Ratio 1.00 Activated Partial Thromboplast Time 26.1Sec Sodium Level 136mmol/L Potassium Level 3.6mmol/L Chloride Level 106mmol/L Carbon Dioxide Level 23mmol/L Anion Gap 11 Blood Urea Nitrogen 19mg/dl Creatinine 0.68mg/dl Glucose Level 98mg/dl Calcium Level 9.5mg/dl Troponin I 0.014ng/ml B-Type Natriuretic Peptide 1880PG/ML Current Medications Medications (Trade) Dose Ordered Sig/Cecil Route PRN Reason Start Time Stop Time Status Last Admin Dose Admin Morphine Sulfate (morphine) 4 mg ONCE STAT IV 10/29/16 00:56 10/29/16 00:57 DC Ondansetron HCl (Zofran Inj) 4 mg ONCE STAT IV 10/29/16 00:56 10/29/16 00:57 DC 10/29/16 01:14 Hydromorphone HCl (Dilaudid) 1 mg ONCE STAT IV 10/29/16 01:25 10/29/16 01:26 DC 10/29/16 01:31 Hydromorphone HCl (Dilaudid) 1 mg ONCE STAT IV 10/29/16 02:40 10/29/16 02:41 DC 10/29/16 02:46 Procedures/MDM [place] [id number] Radiology Main Line: [phone] DIAGNOSTIC IMAGING REPORT Patient: FANNY RICARDO : 1960 Age: 56 Sex: M MR #: [id number] DOS: 10/29/16 0048 Ordering MD: ADAN MALCOLM MD Location: E/R Room/Bed: PROCEDURE: CHEST - 1 VIEW CLINICAL INDICATION: 56-year-old male with chest pain. TECHNIQUE: A single frontal AP upright portable view of the chest was performed. The images were reviewed on a PACS workstation. COMPARISON: Chest x-ray October 22, 2016 FINDINGS: There is a left-sided dual chamber pacemaker AICD combination again noted. The patient has had a prior median sternotomy. The cardiomediastinal silhouette is enlarged but without significant interval change. Coronary artery calcifications are again noted. The thoracic aortic arch is calcified. There is mild pulmonary vascular congestion. There is mild left pleural effusion with basilar atelectasis. There is no evidence for focal consolidation. There is no evidence for pneumothorax. That IMPRESSION: 1. Left-sided dual chamber pacemaker AICD combination. 2. Status post median sternotomy. 3. Cardiomegaly with coronary artery calcifications. 4. Calcified thoracic aortic arch. 5. Mild pulmonary vascular congestion. 6. Mild left pleural effusion with basilar atelectasis. .Eliseo Dey MD, Date Time Electronically viewed and signed by .Eliseo Dey MD, on 10/29/2016 02:18 .M/ CC: ADAN MALCOLM MD EKG: Read by emergency physician Rate/Rhythm: Pacer at 60 beats/min No further attempt to interpret the EKG MEDICAL MAKING DECISION: The patient is a 56-year-old male with multiple cardiac risk factors, presenting with acute on chronic chest pain that is concerning for ACS, acute CHF exacerbation. He was treated with Dilaudid 1 mg IV 2 for pain, Lasix 40 mg IV for CHF with good response The differential diagnoses for acute chest pain considered include but are not limited to acute coronary syndrome, acute myocardial infarction, pericarditis, pulmonary embolism, aortic dissection, pneumonia, pleural effusion, pneumothorax , GERD, chest wall pain. The differential diagnoses for acute CHF considered include but are not limited to asthma, COPD, pneumonia, pulmonary embolus, pleural effusion, congestive heart failure. Departure Diagnosis: Primary Impression: Chest pain Additional Impressions: CHF (congestive heart failure) Anemia Condition: Stable Comments I discussed the findings with the patient. I discussed the patient with his physician Dr. Livia Rees who was made aware of the lab, the treatment, the patient condition. The patient is admitted to telemetry at 310 am ADAN MALCOLM MD October 29, 2016 00:47
[2016-10-29] MEDS ORDERED: morphine 4 MG/ML VIAL IV STA (00:56)
[2016-10-29] MEDS ORDERED: ONDANSETRON 4 MG INJ IV STA (00:56)
[2016-10-29] MEDS ORDERED: HYDROmorphONE 1 MG/ML SYG IV STA ×2 (01:25→02:40)
[2016-10-29 01:30] LABS: ADD SCAN DIFF NO
[2016-10-29 01:32] LABS: BASOPHILS % 0.5 % (0.0-2.0); EOSINOPHILS # 0.1 10^3/ul (0.0-0.5); EOSINOPHILS % 1.6 % (0.0-7.0); HEMATOCRIT 32.5 % (42.0-52.0); HEMOGLOBIN 10.9 g/dl (14.0-18.0); LYMPHOCYTES # 2.1 10^3/ul (0.8-2.9); LYMPHOCYTES % 23.3 % (15.0-51.0); MEAN CORPUSCULAR HEMOGLOBIN 29.1 pg (29.0-33.0); MEAN CORPUSCULAR HGB CONC 33.5 g/dl (32.0-37.0); MEAN CORPUSCULAR VOLUME 86.7 fl (82.0-101.0); MONOCYTE # 0.8 10^3/ul (0.3-0.9); MONOCYTES % 9.4 % (0.0-11.0); NEUTROPHIL # 5.8 10^3/ul (1.6-7.5); PLATELET COUNT 225 10^3/UL (140-415); RED BLOOD COUNT 3.75 10^6/ul (4.70-6.10); RED CELL DISTRIBUTION WIDTH 14.1 % (11.5-14.5); WHITE BLOOD COUNT 8.8 10^3/ul (4.8-10.8)
[2016-10-29 01:51] LABS: PROTIME 13.2 Sec (12.2-14.2)
[2016-10-29 01:52] LABS: PARTIAL THROMBOPLASTIN TIME 26.1 Sec (25.0-35.0)
[2016-10-29 01:54] LABS: CALCIUM 9.5 mg/dl (8.4-10.2); CREATININE 0.68 mg/dl (0.61-1.24); POTASSIUM 3.6 mmol/L (3.5-5.1)
[2016-10-29 02:05] LABS: TROPONIN-I 0.014 ng/ml (0.00-0.12)
--- NOTE | 2016-10-29 02:18 | RADRPT ---
PROCEDURE: CHEST - 1 VIEW CLINICAL INDICATION: 56-year-old male with chest pain. TECHNIQUE: A single frontal AP upright portable view of the chest was performed. The images were reviewed on a PACS workstation. COMPARISON: Chest x-ray October 22, 2016 FINDINGS: There is a left-sided dual chamber pacemaker AICD combination again noted. The patient has had a pr ior median sternotomy. The cardiomediastinal silhouette is enlarged but without significant interva l change. Coronary artery calcifications are again noted. The thoracic aortic arch is calcified. Th ere is mild pulmonary vascular congestion. There is mild left pleural effusion with basilar atelect asis. There is no evidence for focal consolidation. There is no evidence for pneumothorax. That IMPRESSION: 1. Left-sided dual chamber pacemaker AICD combination. 2. Status post median sternotomy. 3. Cardiomegaly with coronary artery calcifications. 4. Calcified thoracic aortic arch. 5. Mild pulmonary vascular congestion. 6. Mild left pleural effusion with basilar atelectasis. .Eliseo Dey MD, MD Date Time Electronically viewed and signed by .Eliseo Dey MD, on 10/29/2016 02:18 .M/
[2016-10-29] MEDS ORDERED: FUROSEMIDE 40 MG INJ IV ONE (03:00)
[2016-10-29] MEDS: HYDROmorphONE 1 MG/ML SYG IV PRN ×5 (04:26→20:19)
[2016-10-29] MEDS ORDERED: GLUCAGON 1 MG INJ IM PRN (04:30)
[2016-10-29] MEDS ORDERED: GLUCOSE GEL 15 GRAM TUBE PO PRN ×2 (04:30)
[2016-10-29] MEDS ORDERED: GLUCOSE GEL 15 GRAM TUBE BUCCAL PRN (04:30)
[2016-10-29] MEDS ORDERED: DEXTROSE 50% 50 ML SYRINGE IV PRN ×2 (04:30)
[2016-10-29 07:17] LABS: CREATINE KINASE 44 IU/L (23-200)
[2016-10-29 07:23] LABS: CK-MB 1.31 ng/ml (0.0-2.4)
[2016-10-29 07:33] LABS: TROPONIN-I < 0.012 ng/ml (0.00-0.12)
[2016-10-29] MEDS: INSULIN ASPART [NOVOLOG] 3 ML PEN SC SCH ×5 (07:55→20:25)
[2016-10-29 09:26] LABS: ADD SCAN DIFF NO
[2016-10-29 09:28] LABS: BASOPHIL # 0.1 10^3/ul (0.0-0.1); BASOPHILS % 0.7 % (0.0-2.0); EOSINOPHILS # 0.2 10^3/ul (0.0-0.5); EOSINOPHILS % 2.3 % (0.0-7.0); HEMATOCRIT 33.2 % (42.0-52.0); HEMOGLOBIN 10.9 g/dl (14.0-18.0); LYMPHOCYTES # 2.4 10^3/ul (0.8-2.9); LYMPHOCYTES % 32.2 % (15.0-51.0); MEAN CORPUSCULAR HEMOGLOBIN 28.3 pg (29.0-33.0); MEAN CORPUSCULAR HGB CONC 32.8 g/dl (32.0-37.0); MEAN CORPUSCULAR VOLUME 86.2 fl (82.0-101.0); MEAN PLATELET VOLUME 10.4 fl (7.4-10.4); MONOCYTE # 0.6 10^3/ul (0.3-0.9); MONOCYTES % 8.6 % (0.0-11.0); NEUTROPHIL # 4.2 10^3/ul (1.6-7.5); NEUTROPHILS % 56.1 % (39.0-77.0); PLATELET COUNT 216 10^3/UL (140-415); RED BLOOD COUNT 3.85 10^6/ul (4.70-6.10); RED CELL DISTRIBUTION WIDTH 14.5 % (11.5-14.5); WHITE BLOOD COUNT 7.4 10^3/ul (4.8-10.8)
[2016-10-29 09:56] LABS: POTASSIUM 3.4 mmol/L (3.5-5.1)
[2016-10-29 09:58] LABS: BILIRUBIN,INDIRECT 0.1 mg/dl (0-1.1); BILIRUBIN,TOTAL 0.1 mg/dl (0.2-1.3); CREATININE 0.64 mg/dl (0.61-1.24)
[2016-10-29 09:59] LABS: ALBUMIN/GLOBULIN RATIO 1.25; TOTAL PROTEIN 7.2 g/dl (6.1-8.1)
[2016-10-29 10:00] LABS: CALCIUM 9.3 mg/dl (8.4-10.2)
[2016-10-29] MEDS ORDERED: DOCUSATE SODIUM 100 MG CAP PO PRN (13:30)
[2016-10-29] MEDS ORDERED: NITROGLYCERIN (SL) 0.4 MG TAB SL PRN (13:30)
--- NOTE | 2016-10-29 14:07 | HP ---
DATE OF ADMISSION: 10/29/2016 REASON FOR ADMISSION: Chest pain and shortness of breath. HISTORY OF PRESENT ILLNESS: The patient is a 56-year-old male known to me from previous admission. The patient with history of severe systolic and diastolic congestive heart failure with ejection fr action of 35%, coronary artery disease, status post coronary artery bypass graft in the past and sta tus post angioplasty to the left anterior descending, cardiomyopathy, hypertension, hyperlipidemia, carotid stenosis, and possible vascular dementia. The patient was in the process of getting on the transplant list at [facility] for possible heart transplant. The patient developed chest pain with radiating down to his arms and associated with shortness of breath. The patient to ok 4 nitroglycerin and 2 baby aspirins without any relief and patient called 911. The patient denie s any fever, denies any syncope, denies headache. Denies any nausea, vomiting, diarrhea. In the em ergency room, patient underwent a chest x-ray which revealed mild pulmonary vascular congestion, mil d left pleural effusion with bibasilar atelectasis, calcified thoracic aortic arch, cardiomegaly wit h coronary artery calcifications, status post median sternotomy and left-sided dual-chamber pacemake r, AICD combination. The patient did not have any leukocytosis. Troponin was negative x2 on admiss ion. The patient was given Dilaudid and Lasix with some improvement in symptoms, and admitted for f urther evaluation and management to telemetry floor. PAST MEDICAL HISTORY: Per HPI. PAST SURGICAL HISTORY: The patient is status post coronary artery bypass grafting in 2005 with all grafts occluded, except for left internal mammary artery graft at the time of last cardiac catheteri zation in 07/2016. FAMILY HISTORY: Noncontributory. SOCIAL HISTORY: The patient is a former smoker, quit 4 months ago. The patient denies any alcohol. Denies any illicit drug use. ALLERGIES: PATIENT IS ALLERGIC TO: 1. SUMATRIPTAN. 2. VENLAFAXINE. HOME MEDICATIONS: Include: 1. Dilaudid. 2. NovoLog 3. Lantus. 4. Colace. 5. Digoxin. 6. Atorvastatin. 7. Cozaar. 8. Ambien. 9. Klor-Con. 10. Dilantin. 11. Nitrostat. 12. Imdur. 13. . 14. Hydromorphone. 15. Glimepiride. 16. Gabapentin. 17. Furosemide. 18. Ranexa. 19. Protonix. 20. MS Contin. 21. Metformin. 22. Aspirin. 23. Vitamin B12. 24. Baclofen. 25. Xanax. 26. Plavix. 27. Coreg. 28. Norvasc. REVIEW OF SYSTEMS: A 12-point review of systems is negative unless what mentioned in the HPI. PHYSICAL ASSESSMENT: GENERAL: This is a well-developed, well-nourished gentleman, currently is awake, alert. VITAL SIGNS: Temperature 97.8, pulse is 60, blood pressure 138/76, respiratory rate 19, oxygen satu ration 100% on 2 liters nasal cannula. HEENT: Head is atraumatic, normocephalic. Pupils equal, round, reactive to light and accommodation . Oral mucosa is pink and moist. NECK: Supple, no cervical lymphadenopathy, no thyromegaly. CHEST: Lungs are clear in the upper lobes, slightly diminished at the bases. No rhonchi, wheezes, rales noted. CARDIOVASCULAR: Normal S1 and S2. No murmurs, gallops, clicks, rubs noted. ABDOMEN: Round, soft, nondistended, nontender. Bowel sounds present. EXTREMITIES: No edema, clubbing, cyanosis. Pulses equal bilaterally, +1. SKIN: There is no rash, petechiae noted. NEUROLOGIC: The patient is awake, alert and oriented x3. No focal deficits noted. Motor strength is a 5/5 in all extremities. LABORATORY DATA: On admission as CBC: White blood cells 8.8, hemoglobin 10.9, hematocrit 32.5, danilo telets 225. Chemistry: Sodium is 141, potassium 3.4, chloride 107, carbon dioxide 24, anion gap 13 , BUN is 18, creatinine 0.64, glucose 192. AST is 21, ALT 30, alkaline phosphatase 50. Troponin le ss than 0.012. ASSESSMENT AND PLAN: 1. Chest pain, rule out acute coronary syndrome. Continue Dilaudid for pain. Dr. Olsen is aske d to see patient in cardiology consultation. Continue telemetry monitoring. 2. Acute on chronic systolic and diastolic congestive heart failure. Continue Lasix. Monitor inta ke and output and electrolytes. 3. Coronary artery disease, status post coronary artery bypass graft and angioplasty to the left an terior descending. Continue aspirin and Plavix. 4. Cardiomyopathy with ejection fraction of 35%. 5. Hypertension. 6. Hyperlipidemia. 7. Poorly controlled diabetes mellitus. Continue Lantus and premeal NovoLog. 8. Carotid stenosis. 9. Seizure disorder. Continue Dilantin. 10. Possible vascular dementia. We will continue Lovenox for deep venous thrombosis prophylaxis and Protonix for peptic ulcer diseas e prophylaxis. Resume patient's home antihypertensive medications. Further recommendations based o n clinical course. Plan of care discussed with Dr. Wright. Dictated By: LIBRADO MORENO PERSONAL BANKING OFFICER for [place] WRIGHT MD SR/NTS Conf#: [id number] DID#: [id number]
[2016-10-29] MEDS: ALPRAZOLAM 0.5 MG TAB PO SCH ×2 (14:27→21:29)
[2016-10-29] MEDS: morphine (ER) 15 MG TAB PO SCH ×2 (14:27→17:17)
[2016-10-29 15:22] LABS: CREATINE KINASE 46 IU/L (23-200)
[2016-10-29 15:32] LABS: CK-MB 1.12 ng/ml (0.0-2.4)
[2016-10-29 15:42] LABS: TROPONIN-I < 0.012 ng/ml (0.00-0.12)
[2016-10-29] MEDS: GABAPENTIN 100 MG CAP PO SCH ×2 (17:17→20:17)
[2016-10-29] MEDS: metFORMIN 500 MG TAB PO SCH (17:17)
[2016-10-29] MEDS: BACLOFEN 10 MG TAB PO SCH (20:17)
[2016-10-29] MEDS: ATORVASTATIN 80 MG TAB PO SCH (20:17)
[2016-10-29] MEDS: LOSARTAN 50 MG TAB PO SCH (20:18)
[2016-10-29] MEDS: PHENYTOIN 100 MG CAP PO SCH (20:18)
[2016-10-29] MEDS: RANOLAZINE (SR) 500 MG TAB PO SCH (20:19)
[2016-10-30] VITALS (13 sets, daily range): BP systolic 95–164; BP diastolic 52–82; PULSE 59–60; RESP 14–21
[2016-10-30] MEDS: HYDROmorphONE 1 MG/ML SYG IV PRN ×6 (00:34→22:11)
[2016-10-30] MEDS: ZOLPIDEM 5 MG TAB PO PRN ×2 (00:41→23:46)
[2016-10-30] MEDS: ACCU-CHEK XX SCH (02:00)
[2016-10-30] MEDS: ALPRAZOLAM 0.5 MG TAB PO SCH ×3 (06:07→22:09)
[2016-10-30 06:41] LABS: ADD SCAN DIFF NO
[2016-10-30 07:15] LABS: CALCIUM 9.3 mg/dl (8.4-10.2); CREATININE 0.74 mg/dl (0.61-1.24); POTASSIUM 4.2 mmol/L (3.5-5.1)
[2016-10-30] MEDS: INSULIN ASPART [NOVOLOG] 3 ML PEN SC SCH ×7 (07:45→20:47)
--- NOTE | 2016-10-30 07:55 | CONS ---
DATE OF ADMISSION: 10/29/2016 DATE OF CONSULTATION: 10/29/2016 TYPE OF CONSULTATION: Cardiology. REFERRING PHYSICIAN: REASON FOR EVALUATION: Chest pain, shortness of breath. HISTORY OF PRESENT ILLNESS: Mr. Louis is a 56-year-old gentleman with hypertension, dyslipidemia , history of significant coronary artery disease with cardiomyopathy, who comes to the hospital now for evaluation of shortness of breath and chest pain. The patient is yet with another episode and a nother admission for similar symptoms. He said he had his usual symptoms. The patient was given so me Lasix on admission. He says he feels better since presentation. The patient did not rule in for acute ischemia and there are no acute ST-T changes now, conservative therapy is expected. We will continue to optimize status. The patient is being evaluated for possibility of heart transpla nt. PAST MEDICAL HISTORY: 1. Hypertension. 2. Dyslipidemia. 3. History of coronary artery disease. 4. History of heart failure with reduced ejection fraction. 5. History of recurrent admission for chest pains. ALLERGIES: 1. SUMATRIPTAN. 2. VENLAFAXINE. SOCIAL HISTORY: History of tobacco use, does not smoke anymore. Does not drink, does not use drug s. FAMILY HISTORY: Negative for sudden cardiac , premature coronary artery disease. MEDICATIONS: Here include: 1. Digoxin 0.125 mg once a day. 2. Amlodipine 5 mg once a day. 3. Aspirin 81 mg once a day. 4. Plavix 75 mg once a day. 5. Vitamin . 6. Imdur. 7. Protonix. 8. Lovenox subcutaneous. 9. Glimepiride. 10. Coreg 12.5 mg ____. 11. Losartan . 12. Ranexa 1 gram p.o. t.i.d. REVIEW OF SYSTEMS: CONSTITUTIONAL: No fevers, no chills, . HEENT: No change in vision or hearing. CARDIAC: No chest pain reported now, but chest pain prior. RESPIRATORY: Shortness of breath. GASTROINTESTINAL: No nausea, vomiting, diarrhea, constipation. GENITOURINARY: No dysuria, hematuria. NEUROLOGIC: No focal deficits. HEMATOLOGIC: No easy bruising. PSYCHIATRIC: History of anxiety. PHYSICAL EXAMINATION: VITAL SIGNS: Temperature is 97.8, heart rate 60, blood pressure 138/76. GENERAL: He is a well-nourished gentleman in no acute distress, alert and oriented x3, aware of his condition. HEAD: Normocephalic, atraumatic. Eyes anicteric. NECK: Supple. JVD 6 to 7 cm. There is no lymphadenopathy, no thyromegaly. HEART: Regular with soft holosystolic murmur at the apex. PMI is minimally displaced. There is no S3. LUNGS: Coarse at the bases. ABDOMEN: Distended, bowel sounds are present. There is no hepatosplenomegaly. GENITOURINARY: Grossly intact. EXTREMITIES: Show no clubbing, cyanosis, or edema. LABORATORY DATA: White blood cell count 7.4, hemoglobin 10.9, platelets 216. His INR is 1.0. Sodi um 141, potassium 3.6, creatinine 0.6. Troponin is negative at 0.012. ECG reviewed by me showed that the patient is in sinus rhythm at the rate of 76 with inferior Q-wave s and some nonspecific ST-T changes. ASSESSMENT AND PLAN: 1. Chest pain. The patient has recurrent chest pain, stable angina. He has been evaluated for tra nsplant evaluation by prior exam. Continue current medicines now. 2. Congestive heart failure. The patient has congestive heart failure, acute on chronic. He respo nded well to Lasix diuresis. Continue to monitor. 3. History of hypertension. Blood pressure well-controlled. Continue current medical optimization . 4. Anxiety. Continue anxiety therapy with Xanax. I would like to thank, DrNatacha , for referring this patient for my evaluation. Dictated By: MARTINEZ ODOM MD ML/NTS Conf#: [id number] DID#: [id number] CC: CECILIA MARTINEZ MD;*EndCC*
[2016-10-30] MEDS: INSULIN GLARGINE [LANtus] 3 ML PEN SC SCH (07:57)
[2016-10-30] MEDS: GLIMEPIRIDE 2 MG TAB PO SCH (07:59)
[2016-10-30] MEDS: metFORMIN 500 MG TAB PO SCH ×2 (07:59→17:55)
[2016-10-30] MEDS: RANOLAZINE (SR) 500 MG TAB PO SCH ×2 (08:01→20:43)
[2016-10-30] MEDS: BACLOFEN 10 MG TAB PO SCH ×2 (08:01→20:44)
[2016-10-30] MEDS: morphine (ER) 15 MG TAB PO SCH ×2 (08:01→20:44)
[2016-10-30] MEDS: GABAPENTIN 100 MG CAP PO SCH ×4 (08:02→20:43)
[2016-10-30] MEDS: LOSARTAN 50 MG TAB PO SCH ×2 (08:02→20:43)
[2016-10-30] MEDS: POTASSIUM CHLORIDE (SR) 10 MEQ TAB PO SCH (08:07)
[2016-10-30] MEDS: AMLODIPINE 5 MG TAB PO SCH (08:07)
[2016-10-30] MEDS: PANTOPRAZOLE (EC) 40 MG TAB PO SCH (08:07)
[2016-10-30] MEDS: ISOSORBIDE MONONITRATE(SR)30 MG TAB PO SCH (08:07)
[2016-10-30] MEDS: CYANOCOBALAMIN 500 MCG TAB PO SCH (08:07)
[2016-10-30] MEDS: ASPIRIN 81 MG TAB PO SCH (08:07)
[2016-10-30] MEDS: CLOPIDOGREL 75 MG TAB PO SCH (08:07)
[2016-10-30] MEDS: ENOXAPARIN 30 MG/0.3 ML SYG SC SCH (08:10)
[2016-10-30 10:34] LABS: BASOPHIL # 0.1 10^3/ul (0.0-0.1); BASOPHILS % 1.2 % (0.0-2.0); EOSINOPHILS # 0.3 10^3/ul (0.0-0.5); EOSINOPHILS % 4.9 % (0.0-7.0); HEMATOCRIT 37.3 % (42.0-52.0); HEMOGLOBIN 12.4 g/dl (14.0-18.0); LYMPHOCYTES % 34.3 % (15.0-51.0); MEAN CORPUSCULAR HEMOGLOBIN 28.9 pg (29.0-33.0); MEAN CORPUSCULAR HGB CONC 33.2 g/dl (32.0-37.0); MEAN CORPUSCULAR VOLUME 86.9 fl (82.0-101.0); MEAN PLATELET VOLUME 10.1 fl (7.4-10.4); MONOCYTE # 0.6 10^3/ul (0.3-0.9); MONOCYTES % 9.8 % (0.0-11.0); NEUTROPHIL # 2.8 10^3/ul (1.6-7.5); NEUTROPHILS % 49.4 % (39.0-77.0); PLATELET COUNT 230 10^3/UL (140-415); RED BLOOD COUNT 4.29 10^6/ul (4.70-6.10); WHITE BLOOD COUNT 5.7 10^3/ul (4.8-10.8)
[2016-10-30] MEDS: DIGOXIN 0.125 MG TAB PO SCH (12:06)
--- NOTE | 2016-10-30 14:15 | CONS ---
Date/Time of Note Date/Time of Note DATE: 10/30/16 TIME: 14:07 Assessment/Plan Assessment/Plan Chief Complaint/Hosp Course IMP: 1.Angina-chronic on maximal medical therapy and on transplant eval list at [facility] awaiting insurance approval for listing. Negative troponin x 3 since admit 2.cardiomyopathy with low EF 3.HTN 4.HL 5. cad s/p cabg 6.DM 7. Carotid stenosis 8.CHF-systolic last EF VPH 35%/15% at OSH 9. s/p recent PTCA to LAD at [facility] Recc: -Tele -Continue current asa/plavix -Continue current CCB/BB/oral nitrates/coreg/losartan -Gentle lasix diuresis -Will contact [facility] again this week to see if any change in insurance for listing and then possible transfer to [facility] Problems: Consultation Date/Type/Reason Admit Date/Time October 29, 2016 at 02:43 Initial Consult Date 10/29/2016 Type of Consultation: Cardiology Reason for Consultation cardiomyopathy/CHF/angina Referring Provider: [place] ALEXANDER MD Exam/Review of Systems Vital Signs Vitals Vital Signs Date Time Temp Pulse Resp B/P Pulse Ox O2 Delivery O2 Flow Rate FiO2 10/30/16 12:11 60 10/30/16 11:28 97.6 17 95/52 96 10/29/16 20:47 Nasal Cannula 3.0 Intake and Output 10/29/16 10/29/16 10/30/16 15:00 23:00 07:00 Intake Total 120 ml 1000 ml 400 ml Output Total 1800 ml Balance -1680 ml 1000 ml 400 ml Exam Review of Systems: CONSTITUTIONAL: No fevers, chills. PULMONARY: No sob CARDIOVASCULAR: ongoing chest pain GASTROINTESTINAL: No nausea/vomiting. GENITOURINARY: No hematuria/dysuria. MUSCULOSKELETAL: No myagias/arthalgias. PSYCHIATRIC: The patient denies depression. NEUROLOGIC: generalized weakness Constitutional: alert Psych: anxiety Head: normocephalic ENMT: mucosa pink and moist Neck: jvd (9 cm water), supple Respiratory: diminished breath sounds (at bases/B) Cardiovascular: regular rate and rhythm Gastrointestinal: non-tender, soft Musculoskeletal: muscle tone (normal) Extremities: edema (none) Neurological: lethargic Results Result Diagram: 5/31/17 0612 5/31/17 0612 Results 24 hrs Laboratory Tests Test 10/29/16 17:14 10/29/16 20:22 10/30/16 06:12 10/30/16 07:45 Bedside Glucose 134 130 119 White Blood Count 5.7 # Red Blood Count 4.29 L Hemoglobin 12.4 L Hematocrit 37.3 L Mean Corpuscular Volume 86.9 Mean Corpuscular Hemoglobin 28.9 L Mean Corpuscular Hemoglobin Concent 33.2 Red Cell Distribution Width 14.0 Platelet Count 230 Mean Platelet Volume 10.1 Neutrophils % 49.4 Lymphocytes % 34.3 Monocytes % 9.8 Eosinophils % 4.9 Basophils % 1.2 Nucleated Red Blood Cells % 0.0 Neutrophils # 2.8 Lymphocytes # 2.0 Monocytes # 0.6 Eosinophils # 0.3 Basophils # 0.1 Nucleated Red Blood Cells # 0.0 Sodium Level 136 Potassium Level 4.2 Chloride Level 102 Carbon Dioxide Level 28 Anion Gap 10 Blood Urea Nitrogen 19 Creatinine 0.74 Glucose Level 112 # Calcium Level 9.3 Test 10/30/16 11:38 Bedside Glucose 201 Medications Medications Current Medications Hydromorphone HCl (Dilaudid) 1 mg Q4H PRN IV PAIN Last administered on t 13:57; Admin Dose 1 MG; Start 10/29/16 at 04:30 Diagnostic Test (Pha) (Accu-Chek) 1 ea 02 XX ; Start 10/30/16 at 02:00 Miscellaneous Information 1 ea NOTE XX ; Start 10/29/16 at 04:30 Glucose (Glutose) 15 gm Q15M PRN PO DECREASED GLUCOSE; Start 10/29/16 at 04:30 Glucose (Glutose) 22.5 gm Q15M PRN PO DECREASED GLUCOSE; Start 10/29/16 at 04: 30 Dextrose (D50w Syringe) 25 ml Q15M PRN IV DECREASED GLUCOSE; Start 10/29/16 at 04:30 Dextrose (D50w Syringe) 50 ml Q15M PRN IV DECREASED GLUCOSE; Start 10/29/16 at 04:30 Glucagon (Glucagen) 1 mg Q15M PRN IM DECREASED GLUCOSE; Start 10/29/16 at 04:30 Glucose (Glutose) 15 gm Q15M PRN BUCCAL DECREASED GLUCOSE; Start 10/29/16 at 04 :30 Alprazolam (Xanax) 0.5 mg Q8 PO Last administered on 10/30/16 13:37; Admin Dose 0.5 MG; Start 10/29/16 at 14:00 Amlodipine Besylate (Norvasc) 5 mg DAILY PO Last administered on 10/30/16 08: 07; Admin Dose 5 MG; Start 10/30/16 at 09:00 Aspirin (Aspirin) 81 mg DAILY PO Last administered on 10/30/16 08:07; Admin Dose 81 MG; Start 10/30/16 at 09:00 Atorvastatin Calcium (Lipitor) 80 mg HS PO Last administered on 10/29/16 20:17 ; Admin Dose 80 MG; Start 10/29/16 at 21:00 Baclofen (Lioresal) 10 mg BID PO Last administered on 10/30/16 08:01; Admin Dose 10 MG; Start 10/29/16 at 21:00 Carvedilol (Coreg) 12.5 mg BID PO Last administered on 10/30/16 08:02; Admin Dose 12.5 MG; Start 10/29/16 at 21:00 Clopidogrel Bisulfate (plaVIX) 75 mg DAILY PO Last administered on 10/30/16 08 :07; Admin Dose 75 MG; Start 10/30/16 at 09:00 Cyanocobalamin (Vitamin B12) 1,000 mcg DAILY PO Last administered on 10/30/16 08:07; Admin Dose 1,000 MCG; Start 10/30/16 at 09:00 Digoxin (Digoxin) 0.125 mg DAILY@13 PO Last administered on 10/30/16 12:06; Admin Dose 0.125 MG; Start 10/30/16 at 13:00 Docusate Sodium (Colace) 100 mg Q12H PRN PO CONSTIPATION; Start 10/29/16 at 13: 30 Gabapentin (Neurontin) 100 mg QID PO Last administered on 10/30/16 12:06; Admin Dose 100 MG; Start 10/29/16 at 17:00 Insulin Glargine (Lantus) 30 unit DAILY@08 SC Last administered on 10/30/16 07 :57; Admin Dose 30 UNIT; Start 10/30/16 at 08:00 Isosorbide Mononitrate (Imdur) 30 mg QAM PO Last administered on 10/30/16 08: 07; Admin Dose 30 MG; Start 10/30/16 at 09:00 Losartan Potassium (Cozaar) 50 mg Q12 PO Last administered on 10/30/16 08:02; Admin Dose 50 MG; Start 10/29/16 at 21:00 Morphine Sulfate (Ms Contin (Er)) 15 mg BID PO Last administered on 10/30/16 08:01; Admin Dose 15 MG; Start 10/29/16 at 14:00 Nitroglycerin (Nitroglycerin (Sl Tab) 0.4 Mg) 1 tab [id number] PRN SL CHEST PAIN ; Start 10/29/16 at 13:30 Pantoprazole (Protonix Tab) 40 mg DAILY PO Last administered on 10/30/16 08:07 ; Admin Dose 40 MG; Start 10/30/16 at 09:00 Phenytoin (Dilantin) 300 mg HS PO Last administered on 10/29/16 20:18; Admin Dose 300 MG; Start 10/29/16 at 21:00 Potassium Chloride (Klor-Con 10) 10 meq DAILY PO Last administered on 08:07; Admin Dose 10 MEQ; Start 10/30/16 at 09:00 Ranolazine (Ranexa) 1,000 mg BID PO Last administered on 10/30/16 08:01; Admin Dose 1,000 MG; Start 10/29/16 at 21:00 Zolpidem Tartrate (Ambien) 10 mg QHS PRN PO INSOMNIA Last administered on 00:41; Admin Dose 10 MG; Start 10/29/16 at 13:30 Enoxaparin Sodium (Lovenox) 30 mg DAILY SC Last administered on 10/30/16 08:10 ; Admin Dose 30 MG; Start 10/30/16 at 09:00 NICHOL ACOSTA October 30, 2016 14:15
[2016-10-30] MEDS: FUROSEMIDE 20 MG INJ IV SCH (17:18)
--- NOTE | 2016-10-30 17:37 | PN ---
Date/Time of Note Date/Time of Note DATE: 10/30/16 TIME: 17:30 Assessment/Plan VTE Prophylaxis VTE Prophylaxis Intervention: SCD's Lines/Catheters [facility] Urinary Cath still in place: No Assessment/Plan Chief Complaint/Hosp Course Patient is comfortable at rest, complains of shortness of breath on exertion. ASSESSMENT AND PLAN: 1. Chest pain, rule out acute coronary syndrome. Troponin is negative 3. continue Dilaudid for pain. Dr. Olsen is following patient in cardiology consultation. Continue telemetry monitoring. 2. Acute on chronic systolic and diastolic congestive heart failure. Continue Lasix. Monitor intake and output and electrolytes. 3. Coronary artery disease, status post coronary artery bypass graft and angioplasty to the left anterior descending. Continue aspirin and Plavix. 4. Cardiomyopathy with ejection fraction of 35%. 5. Hypertension. 6. Hyperlipidemia. 7. Poorly controlled diabetes mellitus. Continue Lantus and premeal NovoLog. 8. Carotid stenosis. 9. Seizure disorder. Continue Dilantin. 10. Possible vascular dementia. We will continue Lovenox for deep venous thrombosis prophylaxis and Protonix for peptic ulcer disease prophylaxis. Problems: Exam/Review of Systems Vital Signs Vitals Vital Signs Date Time Temp Pulse Resp B/P Pulse Ox O2 Delivery O2 Flow Rate FiO2 10/30/16 16:09 60 10/30/16 15:55 97.8 18 114/61 97 10/29/16 20:47 Nasal Cannula 3.0 Intake and Output 10/29/16 10/29/16 10/30/16 15:00 23:00 07:00 Intake Total 120 ml 1000 ml 400 ml Output Total 1800 ml Balance -1680 ml 1000 ml 400 ml Exam Constitutional: alert, oriented Head: normocephalic Neck: non-tender, supple Respiratory: normal air movement Cardiovascular: nl pulses Gastrointestinal: non-tender, soft Musculoskeletal: nl extremities to inspection Extremities: normal pulses Results Result Diagram: 10/30/1612 10/30/16 0612 Results 24 hrs Laboratory Tests Test 10/29/16 20:22 10/30/16 06:12 10/30/16 07:45 10/30/16 11:38 Bedside Glucose 130 119 201 White Blood Count 5.7 # Red Blood Count 4.29 L Hemoglobin 12.4 L Hematocrit 37.3 L Mean Corpuscular Volume 86.9 Mean Corpuscular Hemoglobin 28.9 L Mean Corpuscular Hemoglobin Concent 33.2 Red Cell Distribution Width 14.0 Platelet Count 230 Mean Platelet Volume 10.1 Neutrophils % 49.4 Lymphocytes % 34.3 Monocytes % 9.8 Eosinophils % 4.9 Basophils % 1.2 Nucleated Red Blood Cells % 0.0 Neutrophils # 2.8 Lymphocytes # 2.0 Monocytes # 0.6 Eosinophils # 0.3 Basophils # 0.1 Nucleated Red Blood Cells # 0.0 Sodium Level 136 Potassium Level 4.2 Chloride Level 102 Carbon Dioxide Level 28 Anion Gap 10 Blood Urea Nitrogen 19 Creatinine 0.74 Glucose Level 112 # Calcium Level 9.3 Test 10/30/16 16:46 Bedside Glucose 131 Medications Medications Current Medications Hydromorphone HCl (Dilaudid) 1 mg Q4H PRN IV PAIN Last administered on 13:57; Admin Dose 1 MG; Start 10/29/16 at 04:30 Diagnostic Test (Pha) (Accu-Chek) 1 ea 02 XX ; Start 10/30/16 at 02:00 Miscellaneous Information 1 ea NOTE XX ; Start 10/29/16 at 04:30 Glucose (Glutose) 15 gm Q15M PRN PO DECREASED GLUCOSE; Start 10/29/16 at 04:30 Glucose (Glutose) 22.5 gm Q15M PRN PO DECREASED GLUCOSE; Start 10/29/16 at 04: 30 Dextrose (D50w Syringe) 25 ml Q15M PRN IV DECREASED GLUCOSE; Start 10/29/16 at 04:30 Dextrose (D50w Syringe) 50 ml Q15M PRN IV DECREASED GLUCOSE; Start 10/29/16 at 04:30 Glucagon (Glucagen) 1 mg Q15M PRN IM DECREASED GLUCOSE; Start 10/29/16 at 04:30 Glucose (Glutose) 15 gm Q15M PRN BUCCAL DECREASED GLUCOSE; Start 10/29/16 at 04 :30 Alprazolam (Xanax) 0.5 mg Q8 PO Last administered on 10/30/16 13:37; Admin Dose 0.5 MG; Start 10/29/16 at 14:00 Amlodipine Besylate (Norvasc) 5 mg DAILY PO Last administered on 10/30/16 08: 07; Admin Dose 5 MG; Start 10/30/16 at 09:00 Aspirin (Aspirin) 81 mg DAILY PO Last administered on 10/30/16 08:07; Admin Dose 81 MG; Start 10/30/16 at 09:00 Atorvastatin Calcium (Lipitor) 80 mg HS PO Last administered on 10/29/16 20:17 ; Admin Dose 80 MG; Start 10/29/16 at 21:00 Baclofen (Lioresal) 10 mg BID PO Last administered on 10/30/16 08:01; Admin Dose 10 MG; Start 10/29/16 at 21:00 Carvedilol (Coreg) 12.5 mg BID PO Last administered on 10/30/16 08:02; Admin Dose 12.5 MG; Start 10/29/16 at 21:00 Clopidogrel Bisulfate (plaVIX) 75 mg DAILY PO Last administered on 10/30/16 08 :07; Admin Dose 75 MG; Start 10/30/16 at 09:00 Cyanocobalamin (Vitamin B12) 1,000 mcg DAILY PO Last administered on 10/30/16 08:07; Admin Dose 1,000 MCG; Start 10/30/16 at 09:00 Digoxin (Digoxin) 0.125 mg DAILY@13 PO Last administered on 10/30/16 12:06; Admin Dose 0.125 MG; Start 10/30/16 at 13:00 Docusate Sodium (Colace) 100 mg Q12H PRN PO CONSTIPATION; Start 10/29/16 at 13: 30 Gabapentin (Neurontin) 100 mg QID PO Last administered on 10/30/16 17:17; Admin Dose 100 MG; Start 10/29/16 at 17:00 Insulin Glargine (Lantus) 30 unit DAILY@08 SC Last administered on 10/30/16 07 :57; Admin Dose 30 UNIT; Start 10/30/16 at 08:00 Isosorbide Mononitrate (Imdur) 30 mg QAM PO Last administered on 10/30/16 08: 07; Admin Dose 30 MG; Start 10/30/16 at 09:00 Losartan Potassium (Cozaar) 50 mg Q12 PO Last administered on 10/30/16 08:02; Admin Dose 50 MG; Start 10/29/16 at 21:00 Morphine Sulfate (Ms Contin (Er)) 15 mg BID PO Last administered on 10/30/16 08:01; Admin Dose 15 MG; Start 10/29/16 at 14:00 Nitroglycerin (Nitroglycerin (Sl Tab) 0.4 Mg) 1 tab [id number] PRN SL CHEST PAIN ; Start 10/29/16 at 13:30 Pantoprazole (Protonix Tab) 40 mg DAILY PO Last administered on 10/30/16 08:07 ; Admin Dose 40 MG; Start 10/30/16 at 09:00 Phenytoin (Dilantin) 300 mg HS PO Last administered on 10/29/16 20:18; Admin Dose 300 MG; Start 10/29/16 at 21:00 Potassium Chloride (Klor-Con 10) 10 meq DAILY PO Last administered on 08:07; Admin Dose 10 MEQ; Start 10/30/16 at 09:00 Ranolazine (Ranexa) 1,000 mg BID PO Last administered on 10/30/16 08:01; Admin Dose 1,000 MG; Start 10/29/16 at 21:00 Zolpidem Tartrate (Ambien) 10 mg QHS PRN PO INSOMNIA Last administered on 00:41; Admin Dose 10 MG; Start 10/29/16 at 13:30 Enoxaparin Sodium (Lovenox) 30 mg DAILY SC Last administered on 10/30/16 08:10 ; Admin Dose 30 MG; Start 10/30/16 at 09:00 LIBRADO MORENO October 30, 2016 17:37
[2016-10-30] MEDS: PHENYTOIN 100 MG CAP PO SCH (20:43)
[2016-10-30] MEDS: ATORVASTATIN 80 MG TAB PO SCH (20:43)
[2016-10-31] VITALS (13 sets, daily range): BP systolic 100–117; BP diastolic 54–64; PULSE 60–70; RESP 18–20
[2016-10-31] MEDS: ACCU-CHEK XX SCH (01:27)
[2016-10-31] MEDS: HYDROmorphONE 1 MG/ML SYG IV PRN ×6 (01:58→21:34)
[2016-10-31] MEDS: FUROSEMIDE 20 MG INJ IV SCH ×2 (05:49→17:02)
[2016-10-31] MEDS: ALPRAZOLAM 0.5 MG TAB PO SCH ×3 (05:49→22:58)
[2016-10-31 06:40] LABS: CALCIUM 9.3 mg/dl (8.4-10.2); CREATININE 0.74 mg/dl (0.61-1.24)
[2016-10-31] MEDS: INSULIN ASPART [NOVOLOG] 3 ML PEN SC SCH ×7 (07:55→20:29)
[2016-10-31] MEDS: metFORMIN 500 MG TAB PO SCH ×2 (07:55→16:57)
[2016-10-31] MEDS: GLIMEPIRIDE 2 MG TAB PO SCH (07:59)
[2016-10-31] MEDS: CYANOCOBALAMIN 500 MCG TAB PO SCH (08:00)
[2016-10-31] MEDS: BACLOFEN 10 MG TAB PO SCH ×2 (08:00→20:12)
[2016-10-31] MEDS: AMLODIPINE 5 MG TAB PO SCH (08:01)
[2016-10-31] MEDS: GABAPENTIN 100 MG CAP PO SCH ×5 (08:01→20:11)
[2016-10-31] MEDS: ISOSORBIDE MONONITRATE(SR)30 MG TAB PO SCH (08:01)
[2016-10-31] MEDS: CLOPIDOGREL 75 MG TAB PO SCH (08:01)
[2016-10-31] MEDS: RANOLAZINE (SR) 500 MG TAB PO SCH ×2 (08:01→20:12)
[2016-10-31] MEDS: POTASSIUM CHLORIDE (SR) 10 MEQ TAB PO SCH (08:01)
[2016-10-31] MEDS: ASPIRIN 81 MG TAB PO SCH (08:01)
[2016-10-31] MEDS: LOSARTAN 50 MG TAB PO SCH ×2 (08:01→20:13)
[2016-10-31] MEDS: morphine (ER) 15 MG TAB PO SCH ×2 (08:06→20:12)
[2016-10-31] MEDS: ENOXAPARIN 30 MG/0.3 ML SYG SC SCH (08:06)
[2016-10-31] MEDS: INSULIN GLARGINE [LANtus] 3 ML PEN SC SCH (08:10)
[2016-10-31] MEDS: PANTOPRAZOLE (EC) 40 MG TAB PO SCH (08:25)
[2016-10-31] MEDS: DIGOXIN 0.125 MG TAB PO SCH (12:21)
--- NOTE | 2016-10-31 14:34 | PN ---
Date/Time of Note Date/Time of Note DATE: 10/31/16 TIME: 14:31 Assessment/Plan VTE Prophylaxis VTE Prophylaxis Intervention: SCD's Lines/Catheters IV [facility]ter Type (from [facility]): [facility] Urinary Cath still in place: No Assessment/Plan Assessment/Plan 1. Chest pain, rule out acute coronary syndrome. Troponin is negative 3. continue Dilaudid for pain. Dr. Olsen is following patient in cardiology consultation. Continue telemetry monitoring. 2. Acute on chronic systolic and diastolic congestive heart failure. Continue Lasix. Monitor intake and output and electrolytes. 3. Coronary artery disease, status post coronary artery bypass graft and angioplasty to the left anterior descending. Continue aspirin and Plavix. 4. Cardiomyopathy with ejection fraction of 35%. 5. Hypertension. 6. Hyperlipidemia. 7. Poorly controlled diabetes mellitus. Continue Lantus and premeal NovoLog. 8. Carotid stenosis. 9. Seizure disorder. Continue Dilantin. 10. Possible vascular dementia. We will continue Lovenox for deep venous thrombosis prophylaxis and Protonix for peptic ulcer disease prophylaxis. Subjective 24 Hr Interval Summary Free Text/Dictation c/o chest pain, Dilaudid given by staff- feels better, at bed side- all Qs answered Patient stated he would like to stay in hospital untill Sat. dw staff- no new issues reported. Respiratory: no complaints Cardiovascular: chest pain Gastrointestinal: no complaints Musculoskeletal: no complaints Skin: no complaints Exam/Review of Systems Vital Signs Vitals Vital Signs Date Time Temp Pulse Resp B/P Pulse Ox O2 Delivery O2 Flow Rate FiO2 10/31/16 12:00 60 10/31/16 11:48 98.0 18 100/54 99 10/30/16 19:55 Nasal Cannula 3.0 Intake and Output 10/30/16 10/30/16 10/31/16 15:00 23:00 07:00 Intake Total 700 ml 500 ml Balance 700 ml 500 ml Exam Constitutional: alert, oriented, well developed Respiratory: clear to auscultation, normal air movement Cardiovascular: nl pulses, regular rate and rhythm Gastrointestinal: non-tender, soft Extremities: normal pulses Neurological: nl mental status, nl speech Skin: nl turgor Lymph: nontender Results Result Diagram: 10/30/16 0612 10/31/16 0512 Results 24 hrs Laboratory Tests Test 10/30/16 16:46 10/30/16 20:47 10/31/16 05:12 10/31/16 07:43 Bedside Glucose 131 107 131 Sodium Level 135 Potassium Level 4.0 Chloride Level 103 Carbon Dioxide Level 26 Anion Gap 10 Blood Urea Nitrogen 23 H Creatinine 0.74 Glucose Level 108 Calcium Level 9.3 Test 10/31/16 11:47 Bedside Glucose 146 Medications Medications Current Medications Hydromorphone HCl (Dilaudid) 1 mg Q4H PRN IV PAIN Last administered on 13:38; Admin Dose 1 MG; Start 10/29/16 at 04:30 Diagnostic Test (Pha) (Accu-Chek) 1 ea 02 XX ; Start 10/30/16 at 02:00 Miscellaneous Information 1 ea NOTE XX ; Start 10/29/16 at 04:30 Glucose (Glutose) 15 gm Q15M PRN PO DECREASED GLUCOSE; Start 10/29/16 at 04:30 Glucose (Glutose) 22.5 gm Q15M PRN PO DECREASED GLUCOSE; Start 10/29/16 at 04: 30 Dextrose (D50w Syringe) 25 ml Q15M PRN IV DECREASED GLUCOSE; Start 10/29/16 at 04:30 Dextrose (D50w Syringe) 50 ml Q15M PRN IV DECREASED GLUCOSE; Start 10/29/16 at 04:30 Glucagon (Glucagen) 1 mg Q15M PRN IM DECREASED GLUCOSE; Start 10/29/16 at 04:30 Glucose (Glutose) 15 gm Q15M PRN BUCCAL DECREASED GLUCOSE; Start 10/29/16 at 04 :30 Alprazolam (Xanax) 0.5 mg Q8 PO Last administered on 10/31/16 13:38; Admin Dose 0.5 MG; Start 10/29/16 at 14:00 Amlodipine Besylate (Norvasc) 5 mg DAILY PO Last administered on 10/31/16 08:01 ; Admin Dose 5 MG; Start 10/30/16 at 09:00 Aspirin (Aspirin) 81 mg DAILY PO Last administered on 10/31/16 08:01; Admin Dose 81 MG; Start 10/30/16 at 09:00 Atorvastatin Calcium (Lipitor) 80 mg HS PO Last administered on 10/30/16 20:43 ; Admin Dose 80 MG; Start 10/29/16 at 21:00 Baclofen (Lioresal) 10 mg BID PO Last administered on 10/31/16 08:00; Admin Dose 10 MG; Start 10/29/16 at 21:00 Carvedilol (Coreg) 12.5 mg BID PO Last administered on 10/31/16 08:07; Admin Dose 12.5 MG; Start 10/29/16 at 21:00 Clopidogrel Bisulfate (plaVIX) 75 mg DAILY PO Last administered on 10/31/16 08: 01; Admin Dose 75 MG; Start 10/30/16 at 09:00 Cyanocobalamin (Vitamin B12) 1,000 mcg DAILY PO Last administered on 10/31/16 08:00; Admin Dose 1,000 MCG; Start 10/30/16 at 09:00 Digoxin (Digoxin) 0.125 mg DAILY@13 PO Last administered on 10/31/16 12:21; Admin Dose 0.125 MG; Start 10/30/16 at 13:00 Docusate Sodium (Colace) 100 mg Q12H PRN PO CONSTIPATION; Start 10/29/16 at 13: 30 Gabapentin (Neurontin) 100 mg QID PO Last administered on 10/31/16 08:01; Admin Dose 100 MG; Start 10/29/16 at 17:00 Insulin Glargine (Lantus) 30 unit DAILY@08 SC Last administered on 10/31/16 08: 10; Admin Dose 30 UNIT; Start 10/30/16 at 08:00 Isosorbide Mononitrate (Imdur) 30 mg QAM PO Last administered on 10/31/16 08:01 ; Admin Dose 30 MG; Start 10/30/16 at 09:00 Losartan Potassium (Cozaar) 50 mg Q12 PO Last administered on 10/31/16 08:01; Admin Dose 50 MG; Start 10/29/16 at 21:00 Morphine Sulfate (Ms Contin (Er)) 15 mg BID PO Last administered on 10/31/16 08 :06; Admin Dose 15 MG; Start 10/29/16 at 14:00 Nitroglycerin (Nitroglycerin (Sl Tab) 0.4 Mg) 1 tab [id number] PRN SL CHEST PAIN ; Start 10/29/16 at 13:30 Pantoprazole (Protonix Tab) 40 mg DAILY PO Last administered on 10/31/16 08:25 ; Admin Dose 40 MG; Start 10/30/16 at 09:00 Phenytoin (Dilantin) 300 mg HS PO Last administered on 10/30/16 20:43; Admin Dose 300 MG; Start 10/29/16 at 21:00 Potassium Chloride (Klor-Con 10) 10 meq DAILY PO Last administered on 10/31/16 08:01; Admin Dose 10 MEQ; Start 10/30/16 at 09:00 Ranolazine (Ranexa) 1,000 mg BID PO Last administered on 10/31/16 08:01; Admin Dose 1,000 MG; Start 10/29/16 at 21:00 Zolpidem Tartrate (Ambien) 10 mg QHS PRN PO INSOMNIA Last administered on 23:46; Admin Dose 10 MG; Start 10/29/16 at 13:30 Enoxaparin Sodium (Lovenox) 30 mg DAILY SC Last administered on 10/31/16 08:06 ; Admin Dose 30 MG; Start 10/30/16 at 09:00 AGA BARNETT Oct 31, 2016 14:34
--- NOTE | 2016-10-31 17:51 | CONS ---
Date/Time of Note Date/Time of Note DATE: 10/31/16 TIME: 17:46 Assessment/Plan Assessment/Plan Chief Complaint/Hosp Course IMP: 1.Angina-chronic on maximal medical therapy and accepted for transplant @[facility]. Negative troponin x 3 since admit. Per daughter insurance has been changes and now patient will be admitted to [facility] friday11/04/2016 2.cardiomyopathy with low EF 3.HTN 4.HL 5. cad s/p cabg 6.DM 7. Carotid stenosis 8.CHF-systolic last EF VPH 35%/15% at OSH 9. s/p recent PTCA to LAD at [facility] Recc: -Tele -Continue current asa/plavix -Continue current CCB/BB/oral nitrates/coreg/losartan -Continue gentle lasix diuresis -Pain control -To be admitted to [facility] for transplant listing. Will need to be d/c'd on friday to expedite this. Discussed with patient/family/[facility] Problems: Consultation Date/Type/Reason Admit Date/Time October 29, 2016 at 02:43 Initial Consult Date 10/29/2016 Type of Consultation: Cardiology Reason for Consultation Cardiomyopathy/CHF Referring Provider: KY ALEXANDER MD Exam/Review of Systems Vital Signs Vitals Vital Signs Date Time Temp Pulse Resp B/P Pulse Ox O2 Delivery O2 Flow Rate FiO2 10/31/16 17:00 97.8 60 18 109/57 98 Room Air 10/30/16 19:55 3.0 Intake and Output 10/30/16 10/30/16 10/31/16 15:00 23:00 07:00 Intake Total 700 ml 500 ml Balance 700 ml 500 ml Exam Review of Systems: CONSTITUTIONAL: No fevers, chills. PULMONARY: No sob CARDIOVASCULAR: ongoing chest pain GASTROINTESTINAL: No nausea/vomiting. GENITOURINARY: No hematuria/dysuria. MUSCULOSKELETAL: No myagias/arthalgias. PSYCHIATRIC: The patient denies depression. NEUROLOGIC: No weakness Constitutional: alert Psych: no complaints Head: normocephalic ENMT: mucosa pink and moist Neck: jvd (9 cm water), supple Respiratory: diminished breath sounds (at bases/B) Cardiovascular: regular rate and rhythm Gastrointestinal: non-tender, soft Musculoskeletal: muscle tone (normal) Extremities: edema (none) Neurological: other (No focal deficits) Results Result Diagram: 10/30/16 0612 10/31/16 0512 Results 24 hrs Laboratory Tests Test 10/30/16 20:47 10/31/16 05:12 10/31/16 07:43 10/31/16 11:47 Bedside Glucose 107 131 146 Sodium Level 135 Potassium Level 4.0 Chloride Level 103 Carbon Dioxide Level 26 Anion Gap 10 Blood Urea Nitrogen 23 H Creatinine 0.74 Glucose Level 108 Calcium Level 9.3 Test 10/31/16 16:50 Bedside Glucose 147 Medications Medications Current Medications Hydromorphone HCl (Dilaudid) 1 mg Q4H PRN IV PAIN Last administered on 17:34; Admin Dose 1 MG; Start 10/29/16 at 04:30 Diagnostic Test (Pha) (Accu-Chek) 1 ea 02 XX ; Start 10/30/16 at 02:00 Miscellaneous Information 1 ea NOTE XX ; Start 10/29/16 at 04:30 Glucose (Glutose) 15 gm Q15M PRN PO DECREASED GLUCOSE; Start 10/29/16 at 04:30 Glucose (Glutose) 22.5 gm Q15M PRN PO DECREASED GLUCOSE; Start 10/29/16 at 04: 30 Dextrose (D50w Syringe) 25 ml Q15M PRN IV DECREASED GLUCOSE; Start 10/29/16 at 04:30 Dextrose (D50w Syringe) 50 ml Q15M PRN IV DECREASED GLUCOSE; Start 10/29/16 at 04:30 Glucagon (Glucagen) 1 mg Q15M PRN IM DECREASED GLUCOSE; Start 10/29/16 at 04:30 Glucose (Glutose) 15 gm Q15M PRN BUCCAL DECREASED GLUCOSE; Start 10/29/16 at 04 :30 Alprazolam (Xanax) 0.5 mg Q8 PO Last administered on 10/31/16 13:38; Admin Dose 0.5 MG; Start 10/29/16 at 14:00 Amlodipine Besylate (Norvasc) 5 mg DAILY PO Last administered on 10/31/16 08:01 ; Admin Dose 5 MG; Start 10/30/16 at 09:00 Aspirin (Aspirin) 81 mg DAILY PO Last administered on 10/31/16 08:01; Admin Dose 81 MG; Start 10/30/16 at 09:00 Atorvastatin Calcium (Lipitor) 80 mg HS PO Last administered on 10/30/16 20:43 ; Admin Dose 80 MG; Start 10/29/16 at 21:00 Baclofen (Lioresal) 10 mg BID PO Last administered on 10/31/16 08:00; Admin Dose 10 MG; Start 10/29/16 at 21:00 Carvedilol (Coreg) 12.5 mg BID PO Last administered on 10/31/16 08:07; Admin Dose 12.5 MG; Start 10/29/16 at 21:00 Clopidogrel Bisulfate (plaVIX) 75 mg DAILY PO Last administered on 10/31/16 08: 01; Admin Dose 75 MG; Start 10/30/16 at 09:00 Cyanocobalamin (Vitamin B12) 1,000 mcg DAILY PO Last administered on 10/31/16 08:00; Admin Dose 1,000 MCG; Start 10/30/16 at 09:00 Digoxin (Digoxin) 0.125 mg DAILY@13 PO Last administered on 10/31/16 12:21; Admin Dose 0.125 MG; Start 10/30/16 at 13:00 Docusate Sodium (Colace) 100 mg Q12H PRN PO CONSTIPATION; Start 10/29/16 at 13: 30 Gabapentin (Neurontin) 100 mg QID PO Last administered on 10/31/16 08:01; Admin Dose 100 MG; Start 10/29/16 at 17:00 Insulin Glargine (Lantus) 30 unit DAILY@08 SC Last administered on 10/31/16 08: 10; Admin Dose 30 UNIT; Start 10/30/16 at 08:00 Isosorbide Mononitrate (Imdur) 30 mg QAM PO Last administered on 10/31/16 08:01 ; Admin Dose 30 MG; Start 10/30/16 at 09:00 Losartan Potassium (Cozaar) 50 mg Q12 PO Last administered on 10/31/16 08:01; Admin Dose 50 MG; Start 10/29/16 at 21:00 Morphine Sulfate (Ms Contin (Er)) 15 mg BID PO Last administered on 10/31/16 08 :06; Admin Dose 15 MG; Start 10/29/16 at 14:00 Nitroglycerin (Nitroglycerin (Sl Tab) 0.4 Mg) 1 tab [id number] PRN SL CHEST PAIN ; Start 10/29/16 at 13:30 Pantoprazole (Protonix Tab) 40 mg DAILY PO Last administered on 10/31/16 08:25 ; Admin Dose 40 MG; Start 10/30/16 at 09:00 Phenytoin (Dilantin) 300 mg HS PO Last administered on 10/30/16 20:43; Admin Dose 300 MG; Start 10/29/16 at 21:00 Potassium Chloride (Klor-Con 10) 10 meq DAILY PO Last administered on 10/31/16 08:01; Admin Dose 10 MEQ; Start 10/30/16 at 09:00 Ranolazine (Ranexa) 1,000 mg BID PO Last administered on 10/31/16 08:01; Admin Dose 1,000 MG; Start 10/29/16 at 21:00 Zolpidem Tartrate (Ambien) 10 mg QHS PRN PO INSOMNIA Last administered on 23:46; Admin Dose 10 MG; Start 10/29/16 at 13:30 Enoxaparin Sodium (Lovenox) 30 mg DAILY SC Last administered on 10/31/16 08:06 ; Admin Dose 30 MG; Start 10/30/16 at 09:00 NICHOL ACOSTA Oct 31, 2016 17:51
[2016-10-31] MEDS: ATORVASTATIN 80 MG TAB PO SCH (20:12)
[2016-10-31] MEDS: PHENYTOIN 100 MG CAP PO SCH (20:13)
[2016-10-31] MEDS: ZOLPIDEM 5 MG TAB PO PRN (22:58)
[2016-11-01] VITALS (13 sets, daily range): BP systolic 114–129; BP diastolic 58–72; PULSE 60–61; RESP 18–20
[2016-11-01] MEDS: ACCU-CHEK XX SCH (02:00)
[2016-11-01] MEDS: HYDROmorphONE 1 MG/ML SYG IV PRN ×6 (02:09→21:56)
[2016-11-01] MEDS: ALPRAZOLAM 0.5 MG TAB PO SCH ×3 (05:56→23:13)
[2016-11-01] MEDS: FUROSEMIDE 20 MG INJ IV SCH ×2 (06:04→18:07)
[2016-11-01 06:54] LABS: ADD SCAN DIFF NO
[2016-11-01 06:58] LABS: BASOPHIL # 0.1 10^3/ul (0.0-0.1); BASOPHILS % 0.9 % (0.0-2.0); EOSINOPHILS # 0.3 10^3/ul (0.0-0.5); EOSINOPHILS % 4.3 % (0.0-7.0); HEMATOCRIT 36.4 % (42.0-52.0); HEMOGLOBIN 12.1 g/dl (14.0-18.0); LYMPHOCYTES # 2.5 10^3/ul (0.8-2.9); LYMPHOCYTES % 38.8 % (15.0-51.0); MEAN CORPUSCULAR HEMOGLOBIN 28.3 pg (29.0-33.0); MEAN CORPUSCULAR HGB CONC 33.2 g/dl (32.0-37.0); MEAN CORPUSCULAR VOLUME 85.2 fl (82.0-101.0); MEAN PLATELET VOLUME 10.1 fl (7.4-10.4); MONOCYTE # 0.6 10^3/ul (0.3-0.9); MONOCYTES % 9.5 % (0.0-11.0); PLATELET COUNT 230 10^3/UL (140-415); RED BLOOD COUNT 4.27 10^6/ul (4.70-6.10); RED CELL DISTRIBUTION WIDTH 14.1 % (11.5-14.5); WHITE BLOOD COUNT 6.5 10^3/ul (4.8-10.8)
[2016-11-01 07:26] LABS: CALCIUM 9.1 mg/dl (8.4-10.2); CREATININE 0.8 mg/dl (0.61-1.24); POTASSIUM 4.2 mmol/L (3.5-5.1)
[2016-11-01] MEDS: PANTOPRAZOLE (EC) 40 MG TAB PO SCH (08:08)
[2016-11-01] MEDS: GLIMEPIRIDE 2 MG TAB PO SCH (08:08)
[2016-11-01] MEDS: ISOSORBIDE MONONITRATE(SR)30 MG TAB PO SCH (08:08)
[2016-11-01] MEDS: GABAPENTIN 100 MG CAP PO SCH ×4 (08:09→20:40)
[2016-11-01] MEDS: CYANOCOBALAMIN 500 MCG TAB PO SCH (08:09)
[2016-11-01] MEDS: LOSARTAN 50 MG TAB PO SCH ×2 (08:09→20:39)
[2016-11-01] MEDS: RANOLAZINE (SR) 500 MG TAB PO SCH ×2 (08:09→20:39)
[2016-11-01] MEDS: BACLOFEN 10 MG TAB PO SCH ×2 (08:09→20:40)
[2016-11-01] MEDS: ASPIRIN 81 MG TAB PO SCH (08:09)
[2016-11-01] MEDS: metFORMIN 500 MG TAB PO SCH ×2 (08:09→18:01)
[2016-11-01] MEDS: AMLODIPINE 5 MG TAB PO SCH (08:10)
[2016-11-01] MEDS: POTASSIUM CHLORIDE (SR) 10 MEQ TAB PO SCH (08:10)
[2016-11-01] MEDS: CLOPIDOGREL 75 MG TAB PO SCH (08:10)
[2016-11-01] MEDS: INSULIN ASPART [NOVOLOG] 3 ML PEN SC SCH ×7 (08:12→20:41)
[2016-11-01] MEDS: INSULIN GLARGINE [LANtus] 3 ML PEN SC SCH (08:12)
[2016-11-01] MEDS: ENOXAPARIN 30 MG/0.3 ML SYG SC SCH (08:13)
[2016-11-01] MEDS: morphine (ER) 15 MG TAB PO SCH ×2 (08:21→20:40)
--- NOTE | 2016-11-01 11:15 | CONS ---
Date/Time of Note Date/Time of Note DATE: 11/01/16 TIME: 11:13 Assessment/Plan Assessment/Plan Chief Complaint/Hosp Course IMP: 1.Angina-chronic on maximal medical therapy and accepted for transplant @[facility]. Negative troponin x 3 since admit. Per daughter insurance has been changes and now patient will be admitted to [facility] friday11/04/2016 2.cardiomyopathy with low EF 3.HTN 4.HL 5. cad s/p cabg 6.DM 7. Carotid stenosis 8.CHF-systolic last EF VPH 35%/15% at OSH 9. s/p recent PTCA to LAD at [facility] Recc: -Tele -Continue current asa/plavix -Continue current CCB/BB/oral nitrates/coreg/losartan -Continue gentle lasix diuresis -Pain control -To be admitted to [facility] for transplant listing. Will need to be d/c'd on friday to expedite this. Discussed with patient/family/[facility] Problems: Consultation Date/Type/Reason Admit Date/Time October 29, 2016 at 02:43 Initial Consult Date 10/29/2016 Type of Consultation: Cardiology Reason for Consultation Chest pain Referring Provider: KY ALEXANDER MD Exam/Review of Systems Vital Signs Vitals Vital Signs Date Time Temp Pulse Resp B/P Pulse Ox O2 Delivery O2 Flow Rate FiO2 11/01/16 08:00 60 11/01/16 07:04 97.5 20 124/60 99 10/31/16 17:00 Room Air 10/30/16 19:55 3.0 Intake and Output 10/31/16 10/31/16 11/01/16 15:00 23:00 07:00 Intake Total 900 ml Output Total 1000 ml Balance -100 ml Exam Review of Systems: CONSTITUTIONAL: No fevers, chills. PULMONARY: No sob CARDIOVASCULAR:ongoing chest pain GASTROINTESTINAL: No nausea/vomiting. GENITOURINARY: No hematuria/dysuria. MUSCULOSKELETAL: No myagias/arthalgias. PSYCHIATRIC: The patient denies depression. NEUROLOGIC: No weakness Constitutional: alert Psych: anxiety Head: normocephalic ENMT: mucosa pink and moist Neck: jvd (9 cm water), supple Respiratory: diminished breath sounds (at bases/B) Cardiovascular: regular rate and rhythm Gastrointestinal: non-tender, soft Musculoskeletal: muscle tone (normal) Extremities: edema (none) Neurological: other (No focal deficits) Results Result Diagram: 11/01/16 0610 11/01/16 0610 Results 24 hrs Laboratory Tests Test 10/31/16 11:47 10/31/16 16:50 10/31/16 20:20 11/01/16 02:13 Bedside Glucose 146 147 105 117 Test 11/01/16 06:10 11/01/16 07:53 White Blood Count 6.5 Red Blood Count 4.27 L Hemoglobin 12.1 L Hematocrit 36.4 L Mean Corpuscular Volume 85.2 Mean Corpuscular Hemoglobin 28.3 L Mean Corpuscular Hemoglobin Concent 33.2 Red Cell Distribution Width 14.1 Platelet Count 230 Mean Platelet Volume 10.1 Neutrophils % 46.0 Lymphocytes % 38.8 Monocytes % 9.5 Eosinophils % 4.3 Basophils % 0.9 Nucleated Red Blood Cells % 0.0 Neutrophils # 3.0 Lymphocytes # 2.5 Monocytes # 0.6 Eosinophils # 0.3 Basophils # 0.1 Nucleated Red Blood Cells # 0.0 Sodium Level 137 Potassium Level 4.2 Chloride Level 99 Carbon Dioxide Level 27 Anion Gap 15 Blood Urea Nitrogen 25 H Creatinine 0.80 Glucose Level 169 Calcium Level 9.1 Bedside Glucose 162 Medications Medications Current Medications Hydromorphone HCl (Dilaudid) 1 mg Q4H PRN IV PAIN Last administered on t 10:18; Admin Dose 1 MG; Start 10/29/16 at 04:30 Diagnostic Test (Pha) (Accu-Chek) 1 ea 02 XX ; Start 10/30/16 at 02:00 Miscellaneous Information 1 ea NOTE XX ; Start 10/29/16 at 04:30 Glucose (Glutose) 15 gm Q15M PRN PO DECREASED GLUCOSE; Start 10/29/16 at 04:30 Glucose (Glutose) 22.5 gm Q15M PRN PO DECREASED GLUCOSE; Start 10/29/16 at 04: 30 Dextrose (D50w Syringe) 25 ml Q15M PRN IV DECREASED GLUCOSE; Start 10/29/16 at 04:30 Dextrose (D50w Syringe) 50 ml Q15M PRN IV DECREASED GLUCOSE; Start 10/29/16 at 04:30 Glucagon (Glucagen) 1 mg Q15M PRN IM DECREASED GLUCOSE; Start 10/29/16 at 04:30 Glucose (Glutose) 15 gm Q15M PRN BUCCAL DECREASED GLUCOSE; Start 10/29/16 at 04 :30 Alprazolam (Xanax) 0.5 mg Q8 PO Last administered on 11/01/16 05:56; Admin Dose 0.5 MG; Start 10/29/16 at 14:00 Amlodipine Besylate (Norvasc) 5 mg DAILY PO Last administered on 11/01/16 08:10 ; Admin Dose 5 MG; Start 10/30/16 at 09:00 Aspirin (Aspirin) 81 mg DAILY PO Last administered on 11/01/16 08:09; Admin Dose 81 MG; Start 10/30/16 at 09:00 Atorvastatin Calcium (Lipitor) 80 mg HS PO Last administered on 10/31/16 20:12 ; Admin Dose 80 MG; Start 10/29/16 at 21:00 Baclofen (Lioresal) 10 mg BID PO Last administered on 11/01/16 08:09; Admin Dose 10 MG; Start 10/29/16 at 21:00 Carvedilol (Coreg) 12.5 mg BID PO Last administered on 11/01/16 08:09; Admin Dose 12.5 MG; Start 10/29/16 at 21:00 Clopidogrel Bisulfate (plaVIX) 75 mg DAILY PO Last administered on 11/01/16 08: 10; Admin Dose 75 MG; Start 10/30/16 at 09:00 Cyanocobalamin (Vitamin B12) 1,000 mcg DAILY PO Last administered on 11/01/16 08:09; Admin Dose 1,000 MCG; Start 10/30/16 at 09:00 Digoxin (Digoxin) 0.125 mg DAILY@13 PO Last administered on 10/31/16 12:21; Admin Dose 0.125 MG; Start 10/30/16 at 13:00 Docusate Sodium (Colace) 100 mg Q12H PRN PO CONSTIPATION Last administered on 08:24; Admin Dose 100 MG; Start 10/29/16 at 13:30 Gabapentin (Neurontin) 100 mg QID PO Last administered on 11/01/16 08:09; Admin Dose 100 MG; Start 10/29/16 at 17:00 Insulin Glargine (Lantus) 30 unit DAILY@08 SC Last administered on 11/01/16 08: 12; Admin Dose 30 UNIT; Start 10/30/16 at 08:00 Isosorbide Mononitrate (Imdur) 30 mg QAM PO Last administered on 11/01/16 08:08 ; Admin Dose 30 MG; Start 10/30/16 at 09:00 Losartan Potassium (Cozaar) 50 mg Q12 PO Last administered on 11/01/16 08:09; Admin Dose 50 MG; Start 10/29/16 at 21:00 Morphine Sulfate (Ms Contin (Er)) 15 mg BID PO Last administered on 11/01/16 08 :21; Admin Dose 15 MG; Start 10/29/16 at 14:00 Nitroglycerin (Nitroglycerin (Sl Tab) 0.4 Mg) 1 tab [id number] PRN SL CHEST PAIN ; Start 10/29/16 at 13:30 Pantoprazole (Protonix Tab) 40 mg DAILY PO Last administered on 11/01/16 08:08 ; Admin Dose 40 MG; Start 10/30/16 at 09:00 Phenytoin (Dilantin) 300 mg HS PO Last administered on 10/31/16 20:13; Admin Dose 300 MG; Start 10/29/16 at 21:00 Potassium Chloride (Klor-Con 10) 10 meq DAILY PO Last administered on 11/01/16 08:10; Admin Dose 10 MEQ; Start 10/30/16 at 09:00 Ranolazine (Ranexa) 1,000 mg BID PO Last administered on 11/01/16 08:09; Admin Dose 1,000 MG; Start 10/29/16 at 21:00 Zolpidem Tartrate (Ambien) 10 mg QHS PRN PO INSOMNIA Last administered on 22:58; Admin Dose 10 MG; Start 10/29/16 at 13:30 Enoxaparin Sodium (Lovenox) 30 mg DAILY SC Last administered on 11/01/16 08:13 ; Admin Dose 30 MG; Start 10/30/16 at 09:00 NICHOL ACOSTA Nov 01, 2016 11:15
[2016-11-01] MEDS: DIGOXIN 0.125 MG TAB PO SCH (12:39)
--- NOTE | 2016-11-01 13:33 | PN ---
Date/Time of Note Date/Time of Note DATE: 11/01/16 TIME: 13:31 Assessment/Plan VTE Prophylaxis VTE Prophylaxis Intervention: SCD's Lines/Catheters IV [facility] Urinary Cath still in place: No Assessment/Plan Chief Complaint/Hosp Course Patient was intermittent chest pain, was exacerbation on exertion. Anticipate discharge Friday for admission to [facility] [place] cardiology on Friday. ASSESSMENT AND PLAN: 1. Chronic angina, troponin is negative 3. continue Dilaudid for pain. Dr. Olsen is following patient in cardiology consultation. Continue telemetry monitoring. 2. Acute on chronic systolic and diastolic congestive heart failure. Continue Lasix. Monitor intake and output and electrolytes. 3. Coronary artery disease, status post coronary artery bypass graft and angioplasty to the left anterior descending. Continue aspirin and Plavix. 4. Cardiomyopathy with ejection fraction of 35%. 5. Hypertension. Continue Coreg, Norvasc. 6. Hyperlipidemia. 7. Poorly controlled diabetes mellitus. Continue Lantus and premeal NovoLog. 8. Carotid stenosis. 9. Seizure disorder. Continue Dilantin. 10. Possible vascular dementia. We will continue Lovenox for deep venous thrombosis prophylaxis and Protonix for peptic ulcer disease prophylaxis. Problems: Exam/Review of Systems Vital Signs Vitals Vital Signs Date Time Temp Pulse Resp B/P Pulse Ox O2 Delivery O2 Flow Rate FiO2 11/01/16 12:00 61 11/01/16 11:14 97.6 20 117/64 96 10/31/16 17:00 Room Air 10/30/16 19:55 3.0 Intake and Output 10/31/16 10/31/16 11/01/16 15:00 23:00 07:00 Intake Total 900 ml Output Total 1000 ml Balance -100 ml Exam Constitutional: alert, oriented Head: normocephalic Neck: non-tender, supple Respiratory: normal air movement Cardiovascular: nl pulses Gastrointestinal: non-tender, soft Musculoskeletal: nl extremities to inspection Extremities: normal pulses Results Result Diagram: 11/01/16 0610 11/01/16 0610 Results 24 hrs Laboratory Tests Test 10/31/16 16:50 10/31/16 20:20 11/01/16 02:13 11/01/16 06:10 Bedside Glucose 147 105 117 White Blood Count 6.5 Red Blood Count 4.27 L Hemoglobin 12.1 L Hematocrit 36.4 L Mean Corpuscular Volume 85.2 Mean Corpuscular Hemoglobin 28.3 L Mean Corpuscular Hemoglobin Concent 33.2 Red Cell Distribution Width 14.1 Platelet Count 230 Mean Platelet Volume 10.1 Neutrophils % 46.0 Lymphocytes % 38.8 Monocytes % 9.5 Eosinophils % 4.3 Basophils % 0.9 Nucleated Red Blood Cells % 0.0 Neutrophils # 3.0 Lymphocytes # 2.5 Monocytes # 0.6 Eosinophils # 0.3 Basophils # 0.1 Nucleated Red Blood Cells # 0.0 Sodium Level 137 Potassium Level 4.2 Chloride Level 99 Carbon Dioxide Level 27 Anion Gap 15 Blood Urea Nitrogen 25 H Creatinine 0.80 Glucose Level 169 Calcium Level 9.1 Test 11/01/16 07:53 11/01/16 12:36 Bedside Glucose 162 79 Medications Medications Current Medications Hydromorphone HCl (Dilaudid) 1 mg Q4H PRN IV PAIN Last administered on 10:18; Admin Dose 1 MG; Start 10/29/16 at 04:30 Diagnostic Test (Pha) (Accu-Chek) 1 ea 02 XX ; Start 10/30/16 at 02:00 Miscellaneous Information 1 ea NOTE XX ; Start 10/29/16 at 04:30 Glucose (Glutose) 15 gm Q15M PRN PO DECREASED GLUCOSE; Start 10/29/16 at 04:30 Glucose (Glutose) 22.5 gm Q15M PRN PO DECREASED GLUCOSE; Start 10/29/16 at 04: 30 Dextrose (D50w Syringe) 25 ml Q15M PRN IV DECREASED GLUCOSE; Start 10/29/16 at 04:30 Dextrose (D50w Syringe) 50 ml Q15M PRN IV DECREASED GLUCOSE; Start 10/29/16 at 04:30 Glucagon (Glucagen) 1 mg Q15M PRN IM DECREASED GLUCOSE; Start 10/29/16 at 04:30 Glucose (Glutose) 15 gm Q15M PRN BUCCAL DECREASED GLUCOSE; Start 10/29/16 at 04 :30 Alprazolam (Xanax) 0.5 mg Q8 PO Last administered on 11/01/16 05:56; Admin Dose 0.5 MG; Start 10/29/16 at 14:00 Amlodipine Besylate (Norvasc) 5 mg DAILY PO Last administered on 11/01/16 08:10 ; Admin Dose 5 MG; Start 10/30/16 at 09:00 Aspirin (Aspirin) 81 mg DAILY PO Last administered on 11/01/16 08:09; Admin Dose 81 MG; Start 10/30/16 at 09:00 Atorvastatin Calcium (Lipitor) 80 mg HS PO Last administered on 10/31/16 20:12 ; Admin Dose 80 MG; Start 10/29/16 at 21:00 Baclofen (Lioresal) 10 mg BID PO Last administered on 11/01/16 08:09; Admin Dose 10 MG; Start 10/29/16 at 21:00 Carvedilol (Coreg) 12.5 mg BID PO Last administered on 11/01/16 08:09; Admin Dose 12.5 MG; Start 10/29/16 at 21:00 Clopidogrel Bisulfate (plaVIX) 75 mg DAILY PO Last administered on 11/01/16 08: 10; Admin Dose 75 MG; Start 10/30/16 at 09:00 Cyanocobalamin (Vitamin B12) 1,000 mcg DAILY PO Last administered on 11/01/16 08:09; Admin Dose 1,000 MCG; Start 10/30/16 at 09:00 Digoxin (Digoxin) 0.125 mg DAILY@13 PO Last administered on 11/01/16 12:39; Admin Dose 0.125 MG; Start 10/30/16 at 13:00 Docusate Sodium (Colace) 100 mg Q12H PRN PO CONSTIPATION Last administered on 08:24; Admin Dose 100 MG; Start 10/29/16 at 13:30 Gabapentin (Neurontin) 100 mg QID PO Last administered on 11/01/16 12:39; Admin Dose 100 MG; Start 10/29/16 at 17:00 Insulin Glargine (Lantus) 30 unit DAILY@08 SC Last administered on 11/01/16 08: 12; Admin Dose 30 UNIT; Start 10/30/16 at 08:00 Isosorbide Mononitrate (Imdur) 30 mg QAM PO Last administered on 11/01/16 08:08 ; Admin Dose 30 MG; Start 10/30/16 at 09:00 Losartan Potassium (Cozaar) 50 mg Q12 PO Last administered on 11/01/16 08:09; Admin Dose 50 MG; Start 10/29/16 at 21:00 Morphine Sulfate (Ms Contin (Er)) 15 mg BID PO Last administered on 11/01/16 08 :21; Admin Dose 15 MG; Start 10/29/16 at 14:00 Nitroglycerin (Nitroglycerin (Sl Tab) 0.4 Mg) 1 tab [id number] PRN SL CHEST PAIN ; Start 10/29/16 at 13:30 Pantoprazole (Protonix Tab) 40 mg DAILY PO Last administered on 11/01/16 08:08 ; Admin Dose 40 MG; Start 10/30/16 at 09:00 Phenytoin (Dilantin) 300 mg HS PO Last administered on 10/31/16 20:13; Admin Dose 300 MG; Start 10/29/16 at 21:00 Potassium Chloride (Klor-Con 10) 10 meq DAILY PO Last administered on 11/01/16 08:10; Admin Dose 10 MEQ; Start 10/30/16 at 09:00 Ranolazine (Ranexa) 1,000 mg BID PO Last administered on 11/01/16 08:09; Admin Dose 1,000 MG; Start 10/29/16 at 21:00 Zolpidem Tartrate (Ambien) 10 mg QHS PRN PO INSOMNIA Last administered on 22:58; Admin Dose 10 MG; Start 10/29/16 at 13:30 Enoxaparin Sodium (Lovenox) 30 mg DAILY SC Last administered on 11/01/16 08:13 ; Admin Dose 30 MG; Start 10/30/16 at 09:00 LIBRADO MORENO Nov 01, 2016 13:33
[2016-11-01] MEDS: ATORVASTATIN 80 MG TAB PO SCH (20:39)
[2016-11-01] MEDS: PHENYTOIN 100 MG CAP PO SCH (20:40)
[2016-11-01] MEDS: ZOLPIDEM 5 MG TAB PO PRN (23:13)
[2016-11-02] VITALS (12 sets, daily range): BP systolic 118–144; BP diastolic 59–69; PULSE 60–68; RESP 19–20
[2016-11-02] MEDS: ACCU-CHEK XX SCH (01:40)
[2016-11-02] MEDS: HYDROmorphONE 1 MG/ML SYG IV PRN ×5 (04:30→20:29)
[2016-11-02] MEDS: ALPRAZOLAM 0.5 MG TAB PO SCH ×3 (05:45→22:05)
[2016-11-02] MEDS: FUROSEMIDE 20 MG INJ IV SCH ×2 (05:45→17:36)
[2016-11-02 07:25] LABS: CALCIUM 9.3 mg/dl (8.4-10.2); CREATININE 0.84 mg/dl (0.61-1.24); POTASSIUM 4.9 mmol/L (3.5-5.1)
[2016-11-02] MEDS: metFORMIN 500 MG TAB PO SCH ×2 (08:19→17:36)
[2016-11-02] MEDS: ASPIRIN 81 MG TAB PO SCH (08:22)
[2016-11-02] MEDS: CYANOCOBALAMIN 500 MCG TAB PO SCH (08:22)
[2016-11-02] MEDS: RANOLAZINE (SR) 500 MG TAB PO SCH ×2 (08:23→20:30)
[2016-11-02] MEDS: PANTOPRAZOLE (EC) 40 MG TAB PO SCH (08:23)
[2016-11-02] MEDS: morphine (ER) 15 MG TAB PO SCH ×2 (08:24→21:33)
[2016-11-02] MEDS: GABAPENTIN 100 MG CAP PO SCH ×4 (08:24→20:30)
[2016-11-02] MEDS: ISOSORBIDE MONONITRATE(SR)30 MG TAB PO SCH (08:24)
[2016-11-02] MEDS: GLIMEPIRIDE 2 MG TAB PO SCH (08:25)
[2016-11-02] MEDS: BACLOFEN 10 MG TAB PO SCH ×2 (08:25→20:31)
[2016-11-02] MEDS: CLOPIDOGREL 75 MG TAB PO SCH (08:25)
[2016-11-02] MEDS: POTASSIUM CHLORIDE (SR) 10 MEQ TAB PO SCH (08:25)
[2016-11-02] MEDS: LOSARTAN 50 MG TAB PO SCH ×2 (08:26→20:30)
[2016-11-02] MEDS: AMLODIPINE 5 MG TAB PO SCH (08:27)
[2016-11-02] MEDS: INSULIN ASPART [NOVOLOG] 3 ML PEN SC SCH ×7 (08:31→20:34)
[2016-11-02] MEDS: ENOXAPARIN 30 MG/0.3 ML SYG SC SCH (08:33)
[2016-11-02] MEDS: INSULIN GLARGINE [LANtus] 3 ML PEN SC SCH (08:40)
--- NOTE | 2016-11-02 09:59 | CONS ---
Date/Time of Note Date/Time of Note DATE: 11/02/16 TIME: 09:56 Assessment/Plan Assessment/Plan Additional Assessment/Plan 1.Angina-chronic on maximal medical therapy and accepted for transplant @[facility]. Negative troponin x 3 since admit. Per daughter insurance has been changes and now patient will be admitted to [facility] friday11/04/2016 - med rx for now 2.cardiomyopathy with low EF - [facility] eval to follow 3.HTN- well rx now 4.HL 5. cad s/p cabg- angina, chronic 6.DM - con't med rx 7. Carotid stenosis - not dizzy, good fluid status 8.CHF-systolic last EF VPH 35%/15% at OSH 9. s/p recent PTCA to LAD at [facility] Consultation Date/Type/Reason Admit Date/Time October 29, 2016 at 02:43 Initial Consult Date Type of Consultation: Cardiology Referring Provider: [place] ALEXANDER MD 24 HR Interval Summary Free Text/Dictation Per daughter insurance has been changes and now patient will be admitted to [facility] friday11/04/2016- no ectopy on tele ROS: No fever, no chills, no nausea, no vomiting, no diarrhea/constipation No recent weight changes No PND, no orthopnea +CP chronic No dizziness, blurred vision No thirst, no heat or cold intolerance Exam/Review of Systems Vital Signs Vitals Vital Signs Date Time Temp Pulse Resp B/P Pulse Ox O2 Delivery O2 Flow Rate FiO2 11/02/16 08:22 60 11/02/16 07:56 98.1 19 144/63 97 10/31/16 17:00 Room Air 10/30/16 19:55 3.0 Intake and Output 11/01/16 11/01/16 11/02/16 15:00 23:00 07:00 Intake Total 960 ml 560 ml Balance 960 ml 560 ml Exam General: WN/WD/NAD, AOx 3 HEENT: Unicetric/atraumatic/EOMI (follow commands) NECK: JVD elevated, no thyromegaly Lymph: no lymphadenopathy HEART: regular with no S3, II/ systolic murmur at apex, PMI L LUNGS: Coarse sounds ABD: soft, NT, ND, +BS : Intact Neuro: non focal SKIN: chronic changes EXT: trace edema Results Result Diagram: 11/01/16 0610 11/02/16 0550 Results 24 hrs Laboratory Tests Test 11/01/16 12:36 11/01/16 17:32 11/01/16 20:39 11/02/16 05:50 Bedside Glucose 79 84 131 Sodium Level 139 Potassium Level 4.9 Chloride Level 101 Carbon Dioxide Level 29 Anion Gap 14 Blood Urea Nitrogen 22 H Creatinine 0.84 Glucose Level 138 Calcium Level 9.3 Test 11/02/16 08:17 Bedside Glucose 231 H Medications Medications Current Medications Hydromorphone HCl (Dilaudid) 1 mg Q4H PRN IV PAIN Last administered on 08:20; Admin Dose 1 MG; Start 10/29/16 at 04:30 Diagnostic Test (Pha) (Accu-Chek) 1 ea 02 XX ; Start 10/30/16 at 02:00 Miscellaneous Information 1 ea NOTE XX ; Start 10/29/16 at 04:30 Glucose (Glutose) 15 gm Q15M PRN PO DECREASED GLUCOSE; Start 10/29/16 at 04:30 Glucose (Glutose) 22.5 gm Q15M PRN PO DECREASED GLUCOSE; Start 10/29/16 at 04: 30 Dextrose (D50w Syringe) 25 ml Q15M PRN IV DECREASED GLUCOSE; Start 10/29/16 at 04:30 Dextrose (D50w Syringe) 50 ml Q15M PRN IV DECREASED GLUCOSE; Start 10/29/16 at 04:30 Glucagon (Glucagen) 1 mg Q15M PRN IM DECREASED GLUCOSE; Start 10/29/16 at 04:30 Glucose (Glutose) 15 gm Q15M PRN BUCCAL DECREASED GLUCOSE; Start 10/29/16 at 04 :30 Alprazolam (Xanax) 0.5 mg Q8 PO Last administered on 11/02/16 05:45; Admin Dose 0.5 MG; Start 10/29/16 at 14:00 Amlodipine Besylate (Norvasc) 5 mg DAILY PO Last administered on 11/02/16 08:27 ; Admin Dose 5 MG; Start 10/30/16 at 09:00 Aspirin (Aspirin) 81 mg DAILY PO Last administered on 11/02/16 08:22; Admin Dose 81 MG; Start 10/30/16 at 09:00 Atorvastatin Calcium (Lipitor) 80 mg HS PO Last administered on 11/01/16 20:39 ; Admin Dose 80 MG; Start 10/29/16 at 21:00 Baclofen (Lioresal) 10 mg BID PO Last administered on 11/02/16 08:25; Admin Dose 10 MG; Start 10/29/16 at 21:00 Carvedilol (Coreg) 12.5 mg BID PO Last administered on 11/02/16 08:26; Admin Dose 12.5 MG; Start 10/29/16 at 21:00 Clopidogrel Bisulfate (plaVIX) 75 mg DAILY PO Last administered on 11/02/16 08: 25; Admin Dose 75 MG; Start 10/30/16 at 09:00 Cyanocobalamin (Vitamin B12) 1,000 mcg DAILY PO Last administered on 11/02/16 08:22; Admin Dose 1,000 MCG; Start 10/30/16 at 09:00 Digoxin (Digoxin) 0.125 mg DAILY@13 PO Last administered on 11/01/16 12:39; Admin Dose 0.125 MG; Start 10/30/16 at 13:00 Docusate Sodium (Colace) 100 mg Q12H PRN PO CONSTIPATION Last administered on 08:24; Admin Dose 100 MG; Start 10/29/16 at 13:30 Gabapentin (Neurontin) 100 mg QID PO Last administered on 11/02/16 08:24; Admin Dose 100 MG; Start 10/29/16 at 17:00 Insulin Glargine (Lantus) 30 unit DAILY@08 SC Last administered on 11/02/16 08: 40; Admin Dose 30 UNIT; Start 10/30/16 at 08:00 Isosorbide Mononitrate (Imdur) 30 mg QAM PO Last administered on 11/02/16 08:24 ; Admin Dose 30 MG; Start 10/30/16 at 09:00 Losartan Potassium (Cozaar) 50 mg Q12 PO Last administered on 11/02/16 08:26; Admin Dose 50 MG; Start 10/29/16 at 21:00 Morphine Sulfate (Ms Contin (Er)) 15 mg BID PO Last administered on 11/02/16 08 :24; Admin Dose 15 MG; Start 10/29/16 at 14:00 Nitroglycerin (Nitroglycerin (Sl Tab) 0.4 Mg) 1 tab [id number] PRN SL CHEST PAIN ; Start 10/29/16 at 13:30 Pantoprazole (Protonix Tab) 40 mg DAILY PO Last administered on 11/02/16 08:23 ; Admin Dose 40 MG; Start 10/30/16 at 09:00 Phenytoin (Dilantin) 300 mg HS PO Last administered on 11/01/16 20:40; Admin Dose 300 MG; Start 10/29/16 at 21:00 Potassium Chloride (Klor-Con 10) 10 meq DAILY PO Last administered on 11/02/16 08:25; Admin Dose 10 MEQ; Start 10/30/16 at 09:00 Ranolazine (Ranexa) 1,000 mg BID PO Last administered on 11/02/16 08:23; Admin Dose 1,000 MG; Start 10/29/16 at 21:00 Zolpidem Tartrate (Ambien) 10 mg QHS PRN PO INSOMNIA Last administered on 23:13; Admin Dose 10 MG; Start 10/29/16 at 13:30 Enoxaparin Sodium (Lovenox) 30 mg DAILY SC Last administered on 11/02/16 08:33 ; Admin Dose 30 MG; Start 10/30/16 at 09:00 MARTINEZ ODOM MD Nov 02, 2016 09:59
[2016-11-02] MEDS: DIGOXIN 0.125 MG TAB PO SCH (12:08)
--- NOTE | 2016-11-02 16:14 | PN ---
Date/Time of Note Date/Time of Note DATE: 11/02/16 TIME: 16:10 Assessment/Plan VTE Prophylaxis VTE Prophylaxis Intervention: other Lines/Catheters IV Catheter Type (from Nrs): Peripheral IV Urinary Cath still in place: No Assessment/Plan Assessment/Plan 1. Chronic angina, troponin is negative 3. continue Dilaudid for pain. Dr. Olsen is following patient in cardiology consultation. Continue telemetry monitoring. 2. Acute on chronic systolic and diastolic congestive heart failure. Continue Lasix. Monitor intake and output and electrolytes. 3. Coronary artery disease, status post coronary artery bypass graft and angioplasty to the left anterior descending. Continue aspirin and Plavix. 4. Cardiomyopathy with ejection fraction of 35%. 5. Hypertension. Continue Coreg, Norvasc. 6. Hyperlipidemia. 7. Poorly controlled diabetes mellitus. Continue Lantus and premeal NovoLog. 8. Carotid stenosis. 9. Seizure disorder. Continue Dilantin. - seizure precautions 10. Possible vascular dementia. We will continue Lovenox for deep venous thrombosis prophylaxis and Protonix for peptic ulcer disease prophylaxis. Subjective 24 Hr Interval Summary Free Text/Dictation Patient stll c/o intermittent chest pain on exertion. Denies any shortness of breath, Anticipate discharge on Friday for admission to [facility] cardiology on Friday.dw staff ENT: no complaints Respiratory: no complaints Cardiovascular: chest pain Gastrointestinal: no complaints Genitourinary: no complaints Musculoskeletal: no complaints Exam/Review of Systems Vital Signs Vitals Vital Signs Date Time Temp Pulse Resp B/P Pulse Ox O2 Delivery O2 Flow Rate FiO2 11/02/16 16:06 68 11/02/16 15:41 98.1 19 120/59 98 10/31/16 17:00 Room Air 10/30/16 19:55 3.0 Intake and Output 11/01/16 11/01/16 11/02/16 15:00 23:00 07:00 Intake Total 960 ml 560 ml Balance 960 ml 560 ml Exam Constitutional: alert, oriented, well developed Psych: nl mood/affect Neck: non-tender, supple Respiratory: clear to auscultation, normal air movement Cardiovascular: nl pulses, regular rate and rhythm Gastrointestinal: non-tender, soft Musculoskeletal: nl extremities to inspection Neurological: nl mental status, nl speech Skin: nl turgor Lymph: nontender Results Result Diagram: 11/01/16 0610 11/02/16 0550 Results 24 hrs Laboratory Tests Test 11/01/16 17:32 11/01/16 20:39 11/02/16 05:50 11/02/16 08:17 Bedside Glucose 84 131 231 H Sodium Level 139 Potassium Level 4.9 Chloride Level 101 Carbon Dioxide Level 29 Anion Gap 14 Blood Urea Nitrogen 22 H Creatinine 0.84 Glucose Level 138 Calcium Level 9.3 Test 11/02/16 12:09 Bedside Glucose 200 Medications Medications Current Medications Hydromorphone HCl (Dilaudid) 1 mg Q4H PRN IV PAIN Last administered on 12:08; Admin Dose 1 MG; Start 10/29/16 at 04:30 Diagnostic Test (Pha) (Accu-Chek) 1 ea 02 XX ; Start 10/30/16 at 02:00 Miscellaneous Information 1 ea NOTE XX ; Start 10/29/16 at 04:30 Glucose (Glutose) 15 gm Q15M PRN PO DECREASED GLUCOSE; Start 10/29/16 at 04:30 Glucose (Glutose) 22.5 gm Q15M PRN PO DECREASED GLUCOSE; Start 10/29/16 at 04: 30 Dextrose (D50w Syringe) 25 ml Q15M PRN IV DECREASED GLUCOSE; Start 10/29/16 at 04:30 Dextrose (D50w Syringe) 50 ml Q15M PRN IV DECREASED GLUCOSE; Start 10/29/16 at 04:30 Glucagon (Glucagen) 1 mg Q15M PRN IM DECREASED GLUCOSE; Start 10/29/16 at 04:30 Glucose (Glutose) 15 gm Q15M PRN BUCCAL DECREASED GLUCOSE; Start 10/29/16 at 04 :30 Alprazolam (Xanax) 0.5 mg Q8 PO Last administered on 11/02/16 15:18; Admin Dose 0.5 MG; Start 10/29/16 at 14:00 Amlodipine Besylate (Norvasc) 5 mg DAILY PO Last administered on 11/02/16 08:27 ; Admin Dose 5 MG; Start 10/30/16 at 09:00 Aspirin (Aspirin) 81 mg DAILY PO Last administered on 11/02/16 08:22; Admin Dose 81 MG; Start 10/30/16 at 09:00 Atorvastatin Calcium (Lipitor) 80 mg HS PO Last administered on 11/01/16 20:39 ; Admin Dose 80 MG; Start 10/29/16 at 21:00 Baclofen (Lioresal) 10 mg BID PO Last administered on 11/02/16 08:25; Admin Dose 10 MG; Start 10/29/16 at 21:00 Carvedilol (Coreg) 12.5 mg BID PO Last administered on 11/02/16 08:26; Admin Dose 12.5 MG; Start 10/29/16 at 21:00 Clopidogrel Bisulfate (plaVIX) 75 mg DAILY PO Last administered on 11/02/16 08: 25; Admin Dose 75 MG; Start 10/30/16 at 09:00 Cyanocobalamin (Vitamin B12) 1,000 mcg DAILY PO Last administered on 11/02/16 08:22; Admin Dose 1,000 MCG; Start 10/30/16 at 09:00 Digoxin (Digoxin) 0.125 mg DAILY@13 PO Last administered on 11/02/16 12:08; Admin Dose 0.125 MG; Start 10/30/16 at 13:00 Docusate Sodium (Colace) 100 mg Q12H PRN PO CONSTIPATION Last administered on 08:24; Admin Dose 100 MG; Start 10/29/16 at 13:30 Gabapentin (Neurontin) 100 mg QID PO Last administered on 11/02/16 12:07; Admin Dose 100 MG; Start 10/29/16 at 17:00 Insulin Glargine (Lantus) 30 unit DAILY@08 SC Last administered on 11/02/16 08: 40; Admin Dose 30 UNIT; Start 10/30/16 at 08:00 Isosorbide Mononitrate (Imdur) 30 mg QAM PO Last administered on 11/02/16 08:24 ; Admin Dose 30 MG; Start 10/30/16 at 09:00 Losartan Potassium (Cozaar) 50 mg Q12 PO Last administered on 11/02/16 08:26; Admin Dose 50 MG; Start 10/29/16 at 21:00 Morphine Sulfate (Ms Contin (Er)) 15 mg BID PO Last administered on 11/02/16 08 :24; Admin Dose 15 MG; Start 10/29/16 at 14:00 Nitroglycerin (Nitroglycerin (Sl Tab) 0.4 Mg) 1 tab [id number] PRN SL CHEST PAIN ; Start 10/29/16 at 13:30 Pantoprazole (Protonix Tab) 40 mg DAILY PO Last administered on 11/02/16 08:23 ; Admin Dose 40 MG; Start 10/30/16 at 09:00 Phenytoin (Dilantin) 300 mg HS PO Last administered on 11/01/16 20:40; Admin Dose 300 MG; Start 10/29/16 at 21:00 Potassium Chloride (Klor-Con 10) 10 meq DAILY PO Last administered on 11/02/16 08:25; Admin Dose 10 MEQ; Start 10/30/16 at 09:00 Ranolazine (Ranexa) 1,000 mg BID PO Last administered on 11/02/16 08:23; Admin Dose 1,000 MG; Start 10/29/16 at 21:00 Zolpidem Tartrate (Ambien) 10 mg QHS PRN PO INSOMNIA Last administered on 23:13; Admin Dose 10 MG; Start 10/29/16 at 13:30 Enoxaparin Sodium (Lovenox) 30 mg DAILY SC Last administered on 11/02/16 08:33 ; Admin Dose 30 MG; Start 10/30/16 at 09:00 AGA BARNETT Nov 02, 2016 16:14
[2016-11-02] MEDS: PHENYTOIN 100 MG CAP PO SCH (20:30)
[2016-11-02] MEDS: ATORVASTATIN 80 MG TAB PO SCH (20:30)
[2016-11-02] MEDS: ZOLPIDEM 5 MG TAB PO PRN (21:33)
[2016-11-03] VITALS (9 sets, daily range): BP systolic 120–137; BP diastolic 58–65; PULSE 60; RESP 20
[2016-11-03] MEDS: HYDROmorphONE 1 MG/ML SYG IV PRN ×4 (01:45→14:37)
[2016-11-03] MEDS: ACCU-CHEK XX SCH (02:00)
[2016-11-03] MEDS: FUROSEMIDE 20 MG INJ IV SCH ×2 (05:32→17:54)
[2016-11-03] MEDS: ALPRAZOLAM 0.5 MG TAB PO SCH ×2 (05:32→14:36)
[2016-11-03 07:10] LABS: ADD SCAN DIFF NO
[2016-11-03 07:21] LABS: BASOPHIL # 0.1 10^3/ul (0.0-0.1); EOSINOPHILS # 0.3 10^3/ul (0.0-0.5); EOSINOPHILS % 5.7 % (0.0-7.0); HEMATOCRIT 36.3 % (42.0-52.0); LYMPHOCYTES # 2.4 10^3/ul (0.8-2.9); LYMPHOCYTES % 41.9 % (15.0-51.0); MEAN CORPUSCULAR HEMOGLOBIN 28.4 pg (29.0-33.0); MEAN CORPUSCULAR HGB CONC 33.1 g/dl (32.0-37.0); MEAN CORPUSCULAR VOLUME 85.8 fl (82.0-101.0); MEAN PLATELET VOLUME 10.6 fl (7.4-10.4); MONOCYTE # 0.7 10^3/ul (0.3-0.9); MONOCYTES % 11.5 % (0.0-11.0); NEUTROPHIL # 2.3 10^3/ul (1.6-7.5); NEUTROPHILS % 39.6 % (39.0-77.0); PLATELET COUNT 203 10^3/UL (140-415); RED BLOOD COUNT 4.23 10^6/ul (4.70-6.10); RED CELL DISTRIBUTION WIDTH 14.2 % (11.5-14.5); WHITE BLOOD COUNT 5.8 10^3/ul (4.8-10.8)
[2016-11-03 07:31] LABS: CREATININE 0.8 mg/dl (0.61-1.24)
[2016-11-03] MEDS: ASPIRIN 81 MG TAB PO SCH (08:10)
[2016-11-03] MEDS: GABAPENTIN 100 MG CAP PO SCH ×3 (08:10→17:52)
[2016-11-03] MEDS: POTASSIUM CHLORIDE (SR) 10 MEQ TAB PO SCH (08:10)
[2016-11-03] MEDS: LOSARTAN 50 MG TAB PO SCH (08:10)
[2016-11-03] MEDS: PANTOPRAZOLE (EC) 40 MG TAB PO SCH (08:10)
[2016-11-03] MEDS: CLOPIDOGREL 75 MG TAB PO SCH (08:11)
[2016-11-03] MEDS: BACLOFEN 10 MG TAB PO SCH (08:11)
[2016-11-03] MEDS: CYANOCOBALAMIN 500 MCG TAB PO SCH (08:11)
[2016-11-03] MEDS: AMLODIPINE 5 MG TAB PO SCH (08:11)
[2016-11-03] MEDS: RANOLAZINE (SR) 500 MG TAB PO SCH (08:11)
[2016-11-03] MEDS: GLIMEPIRIDE 2 MG TAB PO SCH (08:11)
[2016-11-03] MEDS: ISOSORBIDE MONONITRATE(SR)30 MG TAB PO SCH (08:11)
[2016-11-03] MEDS: metFORMIN 500 MG TAB PO SCH ×2 (08:15→17:54)
[2016-11-03] MEDS: morphine (ER) 15 MG TAB PO SCH (08:16)
[2016-11-03] MEDS: INSULIN ASPART [NOVOLOG] 3 ML PEN SC SCH ×6 (08:24→17:54)
[2016-11-03] MEDS: INSULIN GLARGINE [LANtus] 3 ML PEN SC SCH (08:26)
[2016-11-03] MEDS: ENOXAPARIN 30 MG/0.3 ML SYG SC SCH (08:27)
--- NOTE | 2016-11-03 10:57 | CONS ---
Date/Time of Note Date/Time of Note DATE: 11/03/16 TIME: 10:55 Assessment/Plan Assessment/Plan Additional Assessment/Plan 1.Angina-chronic on maximal medical therapy and accepted for transplant @[facility]. Negative troponin x 3 since admit. Per daughter insurance has been changes and now patient will be admitted to [facility] friday11/04/2016 - med rx for now - stable - awaiting transfer 2.cardiomyopathy with low EF - [facility] eval to follow - stable 3.HTN- well rx now 4.HL 5. cad s/p cabg- angina, chronic 6.DM - con't med rx 7. Carotid stenosis - not dizzy, good fluid status 8.CHF-systolic last EF VPH 35%/15% at OSH - euvolemic on exam 9. s/p recent PTCA to LAD at [facility] Consultation Date/Type/Reason Admit Date/Time October 29, 2016 at 02:43 Type of Consultation: Cardiology Referring Provider: [place] ALEXANDER MD 24 HR Interval Summary Free Text/Dictation No acute change - BP stable - good fluid status - will monitor clinically ROS: No fever, no chills, no nausea, no vomiting, no diarrhea/constipation No recent weight changes + Chronic chest pain, no PND, no orthopnea No dizziness, blurred vision No thirst, no heat or cold intolerance Exam/Review of Systems Vital Signs Vitals Vital Signs Date Time Temp Pulse Resp B/P Pulse Ox O2 Delivery O2 Flow Rate FiO2 11/03/16 08:05 60 11/03/16 07:20 98.0 20 122/58 98 10/31/16 17:00 Room Air 10/30/16 19:55 3.0 Intake and Output 11/02/16 11/02/16 11/03/16 15:00 23:00 07:00 Intake Total 800 ml Balance 800 ml Exam General: WN/WD/NAD, AOx 3 HEENT: Unicetric/atraumatic/EOMI (follows commands) NECK: JVD elevated, no thyromegaly Lymph: no lymphadenopathy HEART: regular with no S3, II/ systolic murmur at apex, PMI L LUNGS: Coarse sounds ABD: soft, NT, ND, +BS : Intact Neuro: non focal SKIN: chronic changes EXT: trace edema Results Result Diagram: 11/03/16 0550 11/03/16 0550 Results 24 hrs Laboratory Tests Test 11/02/16 12:09 11/02/16 17:39 11/02/16 20:28 11/03/16 05:50 Bedside Glucose 200 132 171 White Blood Count 5.8 Red Blood Count 4.23 L Hemoglobin 12.0 L Hematocrit 36.3 L Mean Corpuscular Volume 85.8 Mean Corpuscular Hemoglobin 28.4 L Mean Corpuscular Hemoglobin Concent 33.1 Red Cell Distribution Width 14.2 Platelet Count 203 Mean Platelet Volume 10.6 H Neutrophils % 39.6 Lymphocytes % 41.9 Monocytes % 11.5 H Eosinophils % 5.7 Basophils % 1.0 Nucleated Red Blood Cells % 0.0 Neutrophils # 2.3 Lymphocytes # 2.4 Monocytes # 0.7 Eosinophils # 0.3 Basophils # 0.1 Nucleated Red Blood Cells # 0.0 Sodium Level 139 Potassium Level 4.0 Chloride Level 102 Carbon Dioxide Level 28 Anion Gap 13 Blood Urea Nitrogen 22 H Creatinine 0.80 Glucose Level 206 Calcium Level 9.0 Test 11/03/16 07:48 Bedside Glucose 197 Medications Medications Current Medications Hydromorphone HCl (Dilaudid) 1 mg Q4H PRN IV PAIN Last administered on t 09:50; Admin Dose 1 MG; Start 10/29/16 at 04:30 Diagnostic Test (Pha) (Accu-Chek) 1 ea 02 XX ; Start 10/30/16 at 02:00 Miscellaneous Information 1 ea NOTE XX ; Start 10/29/16 at 04:30 Glucose (Glutose) 15 gm Q15M PRN PO DECREASED GLUCOSE; Start 10/29/16 at 04:30 Glucose (Glutose) 22.5 gm Q15M PRN PO DECREASED GLUCOSE; Start 10/29/16 at 04: 30 Dextrose (D50w Syringe) 25 ml Q15M PRN IV DECREASED GLUCOSE; Start 10/29/16 at 04:30 Dextrose (D50w Syringe) 50 ml Q15M PRN IV DECREASED GLUCOSE; Start 10/29/16 at 04:30 Glucagon (Glucagen) 1 mg Q15M PRN IM DECREASED GLUCOSE; Start 10/29/16 at 04:30 Glucose (Glutose) 15 gm Q15M PRN BUCCAL DECREASED GLUCOSE; Start 10/29/16 at 04 :30 Alprazolam (Xanax) 0.5 mg Q8 PO Last administered on 11/03/16 05:32; Admin Dose 0.5 MG; Start 10/29/16 at 14:00 Amlodipine Besylate (Norvasc) 5 mg DAILY PO Last administered on 11/03/16 08:11 ; Admin Dose 5 MG; Start 10/30/16 at 09:00 Aspirin (Aspirin) 81 mg DAILY PO Last administered on 11/03/16 08:10; Admin Dose 81 MG; Start 10/30/16 at 09:00 Atorvastatin Calcium (Lipitor) 80 mg HS PO Last administered on 11/02/16 20:30 ; Admin Dose 80 MG; Start 10/29/16 at 21:00 Baclofen (Lioresal) 10 mg BID PO Last administered on 11/03/16 08:11; Admin Dose 10 MG; Start 10/29/16 at 21:00 Carvedilol (Coreg) 12.5 mg BID PO Last administered on 11/03/16 08:10; Admin Dose 12.5 MG; Start 10/29/16 at 21:00 Clopidogrel Bisulfate (plaVIX) 75 mg DAILY PO Last administered on 11/03/16 08: 11; Admin Dose 75 MG; Start 10/30/16 at 09:00 Cyanocobalamin (Vitamin B12) 1,000 mcg DAILY PO Last administered on 11/03/16 08:11; Admin Dose 1,000 MCG; Start 10/30/16 at 09:00 Digoxin (Digoxin) 0.125 mg DAILY@13 PO Last administered on 11/02/16 12:08; Admin Dose 0.125 MG; Start 10/30/16 at 13:00 Docusate Sodium (Colace) 100 mg Q12H PRN PO CONSTIPATION Last administered on 08:24; Admin Dose 100 MG; Start 10/29/16 at 13:30 Gabapentin (Neurontin) 100 mg QID PO Last administered on 11/03/16 08:10; Admin Dose 100 MG; Start 10/29/16 at 17:00 Insulin Glargine (Lantus) 30 unit DAILY@08 SC Last administered on 11/03/16 08: 26; Admin Dose 30 UNIT; Start 10/30/16 at 08:00 Isosorbide Mononitrate (Imdur) 30 mg QAM PO Last administered on 11/03/16 08:11 ; Admin Dose 30 MG; Start 10/30/16 at 09:00 Losartan Potassium (Cozaar) 50 mg Q12 PO Last administered on 11/03/16 08:10; Admin Dose 50 MG; Start 10/29/16 at 21:00 Morphine Sulfate (Ms Contin (Er)) 15 mg BID PO Last administered on 11/03/16 08 :16; Admin Dose 15 MG; Start 10/29/16 at 14:00 Nitroglycerin (Nitroglycerin (Sl Tab) 0.4 Mg) 1 tab [id number] PRN SL CHEST PAIN ; Start 10/29/16 at 13:30 Pantoprazole (Protonix Tab) 40 mg DAILY PO Last administered on 11/03/16 08:10 ; Admin Dose 40 MG; Start 10/30/16 at 09:00 Phenytoin (Dilantin) 300 mg HS PO Last administered on 11/02/16 20:30; Admin Dose 300 MG; Start 10/29/16 at 21:00 Potassium Chloride (Klor-Con 10) 10 meq DAILY PO Last administered on 11/03/16 08:10; Admin Dose 10 MEQ; Start 10/30/16 at 09:00 Ranolazine (Ranexa) 1,000 mg BID PO Last administered on 11/03/16 08:11; Admin Dose 1,000 MG; Start 10/29/16 at 21:00 Zolpidem Tartrate (Ambien) 10 mg QHS PRN PO INSOMNIA Last administered on 21:33; Admin Dose 10 MG; Start 10/29/16 at 13:30 Enoxaparin Sodium (Lovenox) 30 mg DAILY SC Last administered on 11/03/16 08:27 ; Admin Dose 30 MG; Start 10/30/16 at 09:00 MARTINEZ ODOM MD Nov 03, 2016 10:57
[2016-11-03] MEDS: DIGOXIN 0.125 MG TAB PO SCH (12:03)
--- NOTE | 2016-11-03 15:23 | PDOCDIS ---
Discharge Instructions CONDITION Patient Condition: Stable HOME CARE INSTRUCTIONS: Special Diet: Cardiac Diet ACTIVITY: Activity Restrictions: Slowly Increase Activity Rest between Activity Avoid heavy lifting Do not operate Machinery Do not operate Power Tool Avoid Heavy Housework Bathing Restrictions: Sponge Bath FOLLOW UP/APPOINTMENTS Appointments Per patient, he is going to [facility] for his appointment. FU with PMD x 1 week FU with cardiology as recommended. Call 911 or go to the nearest hospital if symptoms get worse. Vinny Solis/staff/ patient. AGA BARNETT Nov 03, 2016 15:23
--- NOTE | 2016-11-03 15:36 | DS ---
Date/Time of Note Date/Time of Note DATE: 11/03/16 TIME: 15:36 Discharge Summary Admission/Discharge Info Admit Date/Time October 29, 2016 at 02:43 Discharge Date/Time Patient Condition: Stable Hospital Course Patient was intermittent chest pain, was exacerbation on exertion. Anticipate discharge Friday for admission to [facility] cardiology on Friday. ASSESSMENT AND PLAN: 1. Chronic angina, troponin is negative 3. continue Dilaudid for pain. Dr. Olsen is following patient in cardiology consultation. Continue telemetry monitoring. 2. Acute on chronic systolic and diastolic congestive heart failure. Continue Lasix. Monitor intake and output and electrolytes. 3. Coronary artery disease, status post coronary artery bypass graft and angioplasty to the left anterior descending. Continue aspirin and Plavix. 4. Cardiomyopathy with ejection fraction of 35%. 5. Hypertension. Continue Coreg, Norvasc. 6. Hyperlipidemia. 7. Poorly controlled diabetes mellitus. Continue Lantus and premeal NovoLog. 8. Carotid stenosis. 9. Seizure disorder. Continue Dilantin. 10. Possible vascular dementia. We will continue Lovenox for deep venous thrombosis prophylaxis and Protonix for peptic ulcer disease prophylaxis. Home Meds Active Scripts Hydromorphone Hcl* (Dilaudid*) 2 Mg Tablet, 2 MG PO Q8H Y for PAIN LEVEL 6-10, # 14 TAB Prov:AGA BARNETT 10/24/16 Insulin Aspart* (Novolog Insulin Pen*) 100 Unit/Ml Soln, 10 UNIT SC WITH MEALS for 30 Days Prov:AGA BARNETT 10/24/16 Insulin Glargine* (Lantus*) 100 Unit/Ml Soln, 30 UNIT SC DAILY@08 for 30 Days Prov:AGA BARNETT 10/24/16 Docusate Sodium (Dok) 100 Mg Capsule, 100 MG PO Q12H Y for CONSTIPATION for 28 Days, CAP Prov:CARLOS MARTINEZ MD 09/22/16 Digoxin* (Digitek*) 125 Mcg Tablet, 0.125 MG PO DAILY@13 for 14 Days, TAB Prov:CARLOS MARTINEZ MD 09/22/16 Atorvastatin* (Atorvastatin*) 80 Mg Tablet, 80 MG PO HS for 14 Days, TAB Prov:CARLOS MARTINEZ MD 09/22/16 Losartan Potassium* (Cozaar*) 50 Mg Tab, 50 MG PO Q12, #60 TAB Prov:ALIZA CUENCA MD 12/22/14 Reported Medications Zolpidem Tartrate* (Zolpidem Tartrate*) 10 Mg Tablet, 10 MG PO QHS Y for INSOMNIA, #30 TAB 10/16/16 Potassium Chloride (Klor-Con) 10 Meq Tablet.sa, 10 MEQ PO DAILY, TAB.SA 10/16/16 Phenytoin* Sodium Extended (Dilantin*) 100 Mg Capsule, 300 MG PO HS, CAP 10/16/16 Nitroglycerin* (Nitrostat*) 0.4 Mg Tab.subl, 0.4 MG SL Q5MIN Y for CHEST PAIN, BOTTLE 10/16/16 Isosorbide Mononitrate* (Isosorbide Mononitrate*) 30 Mg Tab.er.24h, 30 MG PO QAM , TAB 10/16/16 Hydromorphone Hcl* (Hydromorphone Hcl*) 2 Mg Tablet, 4 MG PO Q6H Y for PAIN, TAB 10/16/16 Glimepiride* (Glimepiride*) 1 Mg Tablet, 1 MG PO WITH BREAKFAST, TAB 10/16/16 Gabapentin* (Gabapentin*) 100 Mg Capsule, 100 MG PO QID for 14 Days, #90 CAP 10/16/16 Furosemide* (Furosemide*) 40 Mg Tablet, 40 MG PO DAILY, TAB 10/16/16 Ranolazine* (Ranexa*) 1,000 Mg Tab.sr.12h, 1000 MG PO BID, TAB 09/18/16 Pantoprazole* (Pantoprazole*) 40 Mg Tablet.dr, 40 MG PO DAILY, TAB 09/18/16 Morphine Sulfate* (Ms Contin*) 15 Mg Tablet.sa, 2 MG PO Q6, TAB 09/18/16 Metformin Hcl* (Metformin Hcl*) 1,000 Mg Tablet, 1000 MG PO WITH BREAKFAST DINNE , #60 TAB 09/18/16 Aspirin* (Aspirin* Chew) 81 Mg Tab.chew, 81 MG PO DAILY, TAB.CHEW 07/16/16 Cyanocobalamin* (Vitamin B-12*) 1,000 Mcg Tablet.sa, 1000 MCG PO DAILY, TAB 06/16/16 Baclofen* (Baclofen*) 10 Mg Tablet, 10 MG PO BID, TAB 06/16/16 Alprazolam* (Alprazolam*) 0.5 Mg Tablet, 0.5 MG PO Q8 for ANXIETY, TAB 05/18/14 Clopidogrel Bisulfate (Clopidogrel) 75 Mg Tablet, 75 MG PO DAILY, TAB 04/26/14 Carvedilol* (Carvedilol*) 12.5 Mg Tablet, 12.5 MG PO BID, TAB 04/26/14 Amlodipine Besylate* (Amlodipine Besylate*) 5 Mg Tablet, 5 MG PO DAILY, TAB 04/26/14 Primary Care Provider Not On Staff Doctor Pending Labs Laboratory Tests Test 11/02/16 17:39 11/02/16 20:28 11/03/16 05:50 11/03/16 07:48 Bedside Glucose 132mg/dL (70-220) 171mg/dL (70-220) 197mg/dL (70-220) White Blood Count 5.810^3/ul (4.8-10.8) Red Blood Count 4.2310^6/ul (4.70-6.10) Hemoglobin 12.0g/dl (14.0-18.0) Hematocrit 36.3% (42.0-52.0) Mean Corpuscular Volume 85.8fl (82.0-101.0) Mean Corpuscular Hemoglobin 28.4pg (29.0-33.0) Mean Corpuscular Hemoglobin Concent 33.1g/dl (32.0-37.0) Red Cell Distribution Width 14.2% (11.5-14.5) Platelet Count 44698^3/UL (140-415) Mean Platelet Volume 10.6fl (7.4-10.4) Neutrophils % 39.6% (39.0-77.0) Lymphocytes % 41.9% (15.0-51.0) Monocytes % 11.5% (0.0-11.0) Eosinophils % 5.7% (0.0-7.0) Basophils % 1.0% (0.0-2.0) Nucleated Red Blood Cells % 0.0/100WBC (0.0-0.0) Neutrophils # 2.310^3/ul (1.6-7.5) Lymphocytes # 2.410^3/ul (0.8-2.9) Monocytes # 0.710^3/ul (0.3-0.9) Eosinophils # 0.310^3/ul (0.0-0.5) Basophils # 0.110^3/ul (0.0-0.1) Nucleated Red Blood Cells # 0.010^3/ul (0.0-0.0) Sodium Level 139mmol/L (135-144) Potassium Level 4.0mmol/L (3.5-5.1) Chloride Level 102mmol/L (97-110) Carbon Dioxide Level 28mmol/L (21-31) Anion Gap 13 (8-16) Blood Urea Nitrogen 22mg/dl (7-20) Creatinine 0.80mg/dl (0.61-1.24) Glucose Level 206mg/dl (70-220) Calcium Level 9.0mg/dl (8.4-10.2) Test 11/03/16 11:40 Bedside Glucose 208mg/dL (70-220) AGA BARNETT Nov 03, 2016 15:36
== END 2016-11-03 18:22 | disposition home or self-care (01) | DRG 302 ==
LOC: E/R 00:40 → TEL 02:43
PROVIDERS: ADMIT Internal Medicine; ATTEND Internal Medicine
DX: I25.118 Atherosclerotic heart disease of native coronary artery with other forms of angina pectoris (principal); I50.43 Acute on chronic combined systolic (congestive) and diastolic (congestive) heart failure; I42.9 Cardiomyopathy, unspecified; E11.65 Type 2 diabetes mellitus with hyperglycemia; F01.50 Vascular dementia, unspecified severity, without behavioral disturbance, psychotic disturbance, mood disturbance, and anxiety; I11.0 Hypertensive heart disease with heart failure; Z95.1 Presence of aortocoronary bypass graft; Z87.891 Personal history of nicotine dependence; F41.9 Anxiety disorder, unspecified; Z86.73 Personal history of transient ischemic attack (TIA), and cerebral infarction without residual deficits; Z95.810 Presence of automatic (implantable) cardiac defibrillator; Z95.5 Presence of coronary angioplasty implant and graft; G40.909 Epilepsy, unspecified, not intractable, without status epilepticus; I65.29 Occlusion and stenosis of unspecified carotid artery; Z79.82 Long term (current) use of aspirin; Z79.02 Long term (current) use of antithrombotics/antiplatelets; E78.5 Hyperlipidemia, unspecified
CPT/HCPCS: 36415; 71010; 80048; 80053; 82550; 82553; 82962; 83880; 84484; 85025; 85610; 85730; 87081; 93005; 96374; 96375; 96376; J1940; J1170; J1650; J1815; J2270; J2405

== ENCOUNTER 2016-11-09 00:46 | Emergency (ER) | payer MEDICAID ==
--- NOTE | 2016-11-09 00:59 | ERA ---
ER Documentation Chief Complaint Date/Time DATE: 11/09/16 TIME: 00:59 Chief Complaint High blood glucose HPI The patient is a 56-year-old male, presenting to the ER because of hyperglycemia according to the EMS. He was discharged to the hospital recently. He denies headache, syncope, near syncope, neck pain, chest pain with exertion of vomiting or diaphoresis, abdominal pain, vomiting, dysuria, diarrhea. He used to smoke but quit date he denies drinking, he is on 2 L nasal cannula continuously at home Past medical history: CAD, history of CVA, hypertension, history of CHF, cardiomyopathy with low EF of 35% according to the June 2016 echocardiogram, diabetes mellitus, anemia Past surgical history: CABG, pacemaker/AICD, stent PCI ROS All systems reviewed and are negative except as per history of present illness. Medications Home Meds Active Scripts Hydromorphone Hcl* (Dilaudid*) 2 Mg Tablet, 2 MG PO Q8H Y for PAIN LEVEL 6-10, # 14 TAB Prov:AGA BARNETT 10/24/16 Insulin Aspart* (Novolog Insulin Pen*) 100 Unit/Ml Soln, 10 UNIT SC WITH MEALS for 30 Days Prov:AGA BARNETT 10/24/16 Insulin Glargine* (Lantus*) 100 Unit/Ml Soln, 30 UNIT SC DAILY@08 for 30 Days Prov:AGA BARNETT 10/24/16 Docusate Sodium (Dok) 100 Mg Capsule, 100 MG PO Q12H Y for CONSTIPATION for 28 Days, CAP Prov:CARLOS MARTINEZ MD 09/22/16 Digoxin* (Digitek*) 125 Mcg Tablet, 0.125 MG PO DAILY@13 for 14 Days, TAB Prov:CARLOS MARTINEZ MD 09/22/16 Atorvastatin* (Atorvastatin*) 80 Mg Tablet, 80 MG PO HS for 14 Days, TAB Prov:CARLOS MARTINEZ MD 09/22/16 Losartan Potassium* (Cozaar*) 50 Mg Tab, 50 MG PO Q12, #60 TAB Prov:ALIZA CUENCA MD 12/22/14 Reported Medications Zolpidem Tartrate* (Zolpidem Tartrate*) 10 Mg Tablet, 10 MG PO QHS Y for INSOMNIA, #30 TAB 10/16/16 Potassium Chloride (Klor-Con) 10 Meq Tablet.sa, 10 MEQ PO DAILY, TAB.SA 10/16/16 Phenytoin* Sodium Extended (Dilantin*) 100 Mg Capsule, 300 MG PO HS, CAP 10/16/16 Nitroglycerin* (Nitrostat*) 0.4 Mg Tab.subl, 0.4 MG SL Q5MIN Y for CHEST PAIN, BOTTLE 10/16/16 Isosorbide Mononitrate* (Isosorbide Mononitrate*) 30 Mg Tab.er.24h, 30 MG PO QAM , TAB 10/16/16 Hydromorphone Hcl* (Hydromorphone Hcl*) 2 Mg Tablet, 4 MG PO Q6H Y for PAIN, TAB 10/16/16 Glimepiride* (Glimepiride*) 1 Mg Tablet, 1 MG PO WITH BREAKFAST, TAB 10/16/16 Gabapentin* (Gabapentin*) 100 Mg Capsule, 100 MG PO QID for 14 Days, #90 CAP 10/16/16 Furosemide* (Furosemide*) 40 Mg Tablet, 40 MG PO DAILY, TAB 10/16/16 Ranolazine* (Ranexa*) 1,000 Mg Tab.sr.12h, 1000 MG PO BID, TAB 09/18/16 Pantoprazole* (Pantoprazole*) 40 Mg Tablet.dr, 40 MG PO DAILY, TAB 09/18/16 Morphine Sulfate* (Ms Contin*) 15 Mg Tablet.sa, 2 MG PO Q6, TAB 09/18/16 Metformin Hcl* (Metformin Hcl*) 1,000 Mg Tablet, 1000 MG PO WITH BREAKFAST DINNE , #60 TAB 09/18/16 Aspirin* (Aspirin* Chew) 81 Mg Tab.chew, 81 MG PO DAILY, TAB.CHEW 07/16/16 Cyanocobalamin* (Vitamin B-12*) 1,000 Mcg Tablet.sa, 1000 MCG PO DAILY, TAB 06/16/16 Baclofen* (Baclofen*) 10 Mg Tablet, 10 MG PO BID, TAB 06/16/16 Alprazolam* (Alprazolam*) 0.5 Mg Tablet, 0.5 MG PO Q8 for ANXIETY, TAB 05/18/14 Clopidogrel Bisulfate (Clopidogrel) 75 Mg Tablet, 75 MG PO DAILY, TAB 04/26/14 Carvedilol* (Carvedilol*) 12.5 Mg Tablet, 12.5 MG PO BID, TAB 04/26/14 Amlodipine Besylate* (Amlodipine Besylate*) 5 Mg Tablet, 5 MG PO DAILY, TAB 04/26/14 Allergies Allergies: Coded Allergies: sumatriptan (Unverified Allergy, Unknown, 10/16/16) sumatriptan succinate (Unverified Allergy, Unknown, 10/16/16) venlafaxine HCl (Unverified Allergy, Unknown, 10/16/16) PMhx/Soc History of Surgery: Yes (pacemaker, previous trach) Anesthesia Reaction: No Hx Neurological Disorder: Yes (previous CVA 2008) Hx Respiratory Disorders: No Hx Cardiac Disorders: Yes (CHF, HTN, ) Hx Psychiatric Problems: Yes (depression) Hx Miscellaneous Medical Probl: Yes (seratonin syndrome ) Hx Alcohol Use: No Hx Substance Use: No Hx Tobacco Use: No Physical Exam Physical Exam Const: No acute distress. Head: Atraumatic. Eyes: Normal Conjunctiva. ENT: Normal External Ears, Nose and Mouth. Neck: Full range of motion. No meningismus. Resp: Bibasilar crackles, tachypneic Cardio: Regular rate and rhythm. Abd: Soft, non distended, normal bowel sounds, non tender. Skin: No petechiae or rashes. Back: No midline or flank tenderness. Ext: No cyanosis, or edema. Neur: Awake and alert. No focal deficit Psych: Normal Mood and Affect. Procedures/MDM MEDICAL MAKING DECISION: The patient is a 56-year-old male, presenting with acute hyperglycemia, Accu-Chek in the ER was 425. He is awake, alert, able to make his decision. He was upset that his called 911 the patient will be here, he denies any symptom and wanted to go home. He does not want to have any blood tests or any further testing, he wanted to go home Departure Diagnosis: Primary Impression: Hyperglycemia Condition: Stable Comments We discussed the patient in cooperation with the daughter who was coming to the ER with the mother to knot picker cloth the patient The patient signed out AGAINST MEDICAL ADVICE. Risks, benefits, alternatives were explained to the patient. Risks include but not limited to and permanent disability ADAN MALCOLM MD Nov 09, 2016 00:59
== END 2016-11-09 02:00 | disposition left against medical advice (07) ==
LOC: E/R 00:46
DX: E11.65 Type 2 diabetes mellitus with hyperglycemia (principal); I25.10 Atherosclerotic heart disease of native coronary artery without angina pectoris; I10 Essential (primary) hypertension; I50.9 Heart failure, unspecified; Z79.01 Long term (current) use of anticoagulants; Z95.1 Presence of aortocoronary bypass graft; Z95.0 Presence of cardiac pacemaker; Z98.61 Coronary angioplasty status; Z79.84 Long term (current) use of oral hypoglycemic drugs; Z79.4 Long term (current) use of insulin; Z79.82 Long term (current) use of aspirin
CPT/HCPCS: 99282

== ENCOUNTER 2016-11-28 03:16 | Inpatient (IN) | payer MEDICAID ==
[2016-11-28] VITALS (11 sets, daily range): BP systolic 131–141; BP diastolic 66–75; PULSE 64–76; RESP 19–20; TEMP 98.1; Ht 167.6 cm; Wt 81.0 kg
[~2016-11-28] VITALS: Ht 167.6 cm; Wt 81.0 kg
[2016-11-28] MEDS ORDERED: ASPIRIN 325 MG TAB PO STA (03:30)
[2016-11-28] MEDS ORDERED: NITROGLYCERIN 2% 1 GM OINT PKT TD STA (03:30)
[2016-11-28] MEDS ORDERED: NITROGLYCERIN (SL) 0.4 MG TAB SL PRN ×2 (03:30→06:00)
[2016-11-28 04:05] LABS: ADD SCAN DIFF NO
[2016-11-28 04:08] LABS: BASOPHILS % 0.4 % (0.0-2.0); EOSINOPHILS # 0.2 10^3/ul (0.0-0.5); EOSINOPHILS % 3.3 % (0.0-7.0); HEMATOCRIT 34.9 % (42.0-52.0); HEMOGLOBIN 11.1 g/dl (14.0-18.0); LYMPHOCYTES # 1.8 10^3/ul (0.8-2.9); LYMPHOCYTES % 26.7 % (15.0-51.0); MEAN CORPUSCULAR HEMOGLOBIN 27.8 pg (29.0-33.0); MEAN CORPUSCULAR HGB CONC 31.8 g/dl (32.0-37.0); MEAN CORPUSCULAR VOLUME 87.5 fl (82.0-101.0); MEAN PLATELET VOLUME 10.2 fl (7.4-10.4); MONOCYTE # 0.8 10^3/ul (0.3-0.9); MONOCYTES % 11.6 % (0.0-11.0); NEUTROPHIL # 3.9 10^3/ul (1.6-7.5); NEUTROPHILS % 57.7 % (39.0-77.0); PLATELET COUNT 191 10^3/UL (140-415); RED BLOOD COUNT 3.99 10^6/ul (4.70-6.10); RED CELL DISTRIBUTION WIDTH 14.4 % (11.5-14.5); WHITE BLOOD COUNT 6.7 10^3/ul (4.8-10.8)
[2016-11-28 04:21] LABS: INR 0.99; PROTIME 13.1 Sec (12.2-14.2)
--- NOTE | 2016-11-28 04:21 | RADRPT ---
PROCEDURE: Chest. CLINICAL INDICATION: Chest pain. TECHNIQUE: Single frontal view of the chest was obtained. COMPARISON: 10/29/2016. FINDINGS: There is a left-sided pacemaker AICD. Mediasternotomy wires are present. The cardiac silhouette is enlarged. The aortic arch is calcified. There is mild central vascular congestion. There is a sm all left pleural effusion. There is no pneumothorax. IMPRESSION: Cardiomegaly and mild central vascular congestion. Small left-sided pleural effusion. Aortic atherosclerosis. .Estuardo Leyva MD, MD Date Time Electronically viewed and signed by .Estuardo Leyva MD, MD on 11/28/2016 04:21 .T/
[2016-11-28 04:22] LABS: PARTIAL THROMBOPLASTIN TIME 26.5 Sec (25.0-35.0)
[2016-11-28 04:31] LABS: CALCIUM 9.2 mg/dl (8.4-10.2); CREATININE 0.98 mg/dl (0.61-1.24)
[2016-11-28 04:40] LABS: TROPONIN-I 0.016 ng/ml (0.00-0.12)
--- NOTE | 2016-11-28 05:05 | ERA ---
ER Documentation Chief Complaint Date/Time DATE: 11/28/16 TIME: 05:02 Chief Complaint left chest pressure pain radiating to left arm HPI This is a 56-year-old male with history of hyperlipidemia coronary artery disease that is severe with multiple stents and with cardiomyopathy who is on the [facility] transplant list. Patient states she is here for chest pain because he took 7-8 nitroglycerin sublingual for his chest pain and did not get better. He has substernal chest pressure that radiates to the left upper extremity. He also has shortness of breath and mild diaphoresis. He is refusing all pain medications because he was told by [facility] that if he takes any morphine or Dilaudid that he will not receive a heart transplant ROS All systems reviewed and are negative except as per history of present illness. Medications Home Meds Active Scripts Hydromorphone Hcl* (Dilaudid*) 2 Mg Tablet, 2 MG PO Q8H Y for PAIN LEVEL 6-10, # 14 TAB Prov:AGA BARNETT 10/24/16 Insulin Aspart* (Novolog Insulin Pen*) 100 Unit/Ml Soln, 10 UNIT SC WITH MEALS for 30 Days Prov:AGA BARNETT 10/24/16 Insulin Glargine* (Lantus*) 100 Unit/Ml Soln, 30 UNIT SC DAILY@08 for 30 Days Prov:AGA BARNETT 10/24/16 Docusate Sodium (Dok) 100 Mg Capsule, 100 MG PO Q12H Y for CONSTIPATION for 28 Days, CAP Prov:CARLOS MARTINEZ MD 09/22/16 Digoxin* (Digitek*) 125 Mcg Tablet, 0.125 MG PO DAILY@13 for 14 Days, TAB Prov:CARLOS MARTINEZ MD 09/22/16 Atorvastatin* (Atorvastatin*) 80 Mg Tablet, 80 MG PO HS for 14 Days, TAB Prov:CARLOS MARTINEZ MD 09/22/16 Losartan Potassium* (Cozaar*) 50 Mg Tab, 50 MG PO Q12, #60 TAB Prov:ALIZA CUENCA MD 12/22/14 Reported Medications Zolpidem Tartrate* (Zolpidem Tartrate*) 10 Mg Tablet, 10 MG PO QHS Y for INSOMNIA, #30 TAB 10/16/16 Potassium Chloride (Klor-Con) 10 Meq Tablet.sa, 10 MEQ PO DAILY, TAB.SA 10/16/16 Phenytoin* Sodium Extended (Dilantin*) 100 Mg Capsule, 300 MG PO HS, CAP 10/16/16 Nitroglycerin* (Nitrostat*) 0.4 Mg Tab.subl, 0.4 MG SL Q5MIN Y for CHEST PAIN, BOTTLE 10/16/16 Isosorbide Mononitrate* (Isosorbide Mononitrate*) 30 Mg Tab.er.24h, 30 MG PO QAM , TAB 10/16/16 Hydromorphone Hcl* (Hydromorphone Hcl*) 2 Mg Tablet, 4 MG PO Q6H Y for PAIN, TAB 10/16/16 Glimepiride* (Glimepiride*) 1 Mg Tablet, 1 MG PO WITH BREAKFAST, TAB 10/16/16 Gabapentin* (Gabapentin*) 100 Mg Capsule, 100 MG PO QID for 14 Days, #90 CAP 10/16/16 Furosemide* (Furosemide*) 40 Mg Tablet, 40 MG PO DAILY, TAB 10/16/16 Ranolazine* (Ranexa*) 1,000 Mg Tab.sr.12h, 1000 MG PO BID, TAB 09/18/16 Pantoprazole* (Pantoprazole*) 40 Mg Tablet.dr, 40 MG PO DAILY, TAB 09/18/16 Morphine Sulfate* (Ms Contin*) 15 Mg Tablet.sa, 2 MG PO Q6, TAB 09/18/16 Metformin Hcl* (Metformin Hcl*) 1,000 Mg Tablet, 1000 MG PO WITH BREAKFAST DINNE , #60 TAB 09/18/16 Aspirin* (Aspirin* Chew) 81 Mg Tab.chew, 81 MG PO DAILY, TAB.CHEW 07/16/16 Cyanocobalamin* (Vitamin B-12*) 1,000 Mcg Tablet.sa, 1000 MCG PO DAILY, TAB 06/16/16 Baclofen* (Baclofen*) 10 Mg Tablet, 10 MG PO BID, TAB 06/16/16 Alprazolam* (Alprazolam*) 0.5 Mg Tablet, 0.5 MG PO Q8 for ANXIETY, TAB 05/18/14 Clopidogrel Bisulfate (Clopidogrel) 75 Mg Tablet, 75 MG PO DAILY, TAB 04/26/14 Carvedilol* (Carvedilol*) 12.5 Mg Tablet, 12.5 MG PO BID, TAB 04/26/14 Amlodipine Besylate* (Amlodipine Besylate*) 5 Mg Tablet, 5 MG PO DAILY, TAB 04/26/14 Allergies Allergies: Coded Allergies: sumatriptan (Unverified Allergy, Unknown, 10/16/16) sumatriptan succinate (Unverified Allergy, Unknown, 10/16/16) venlafaxine HCl (Unverified Allergy, Unknown, 10/16/16) PMhx/Soc History of Surgery: Yes (pacemaker, previous trach) Anesthesia Reaction: No Hx Neurological Disorder: Yes (previous CVA 2008) Hx Respiratory Disorders: No Hx Cardiac Disorders: Yes (CHF, HTN, ) Hx Psychiatric Problems: Yes (depression) Hx Miscellaneous Medical Probl: Yes (seratonin syndrome ) Hx Alcohol Use: No Hx Substance Use: No Hx Tobacco Use: No Smoking Status: Never smoker FmHx Family History: coronary disease Physical Exam Vitals Vital Signs Date Time Temp Pulse Resp B/P Pulse Ox O2 Delivery O2 Flow Rate FiO2 11/28/16 03:19 98.3 79 18 141/69 98 Physical Exam Const: Well-developed, well-nourished Head: Atraumatic, normocephalic Eyes: Normal Conjunctiva, PERRLA, EOMI, normal sclera, no nystagmus ENT: Normal External Ears, Nose and Mouth, moist mucus membranes. Neck: Full range of motion. No meningismus, no lymphadenopathy. Resp: Clear to auscultation bilaterally, no wheezing, rhonchi, rales Cardio: Regular rate and rhythm, no murmurs, S1 S2 present Abd: Soft, non tender x 4, non distended. Normal bowel sounds, no guarding or rebound, no pulsitile abdominal masses or bruits Skin: No petechiae or rashes, no ecchymosis , no maculopapular rash Back: No midline or flank tenderness Ext: No cyanosis, or edema, FROM x 4, normal inspection, neurovascularly intact x 4 Neur: Awake and alert, STR 5/5 x 4, sensation intact x 4, no focal findings, cerebellum intact Psych: Normal Mood and Affect Result Diagram: 11/28/16 0400 11/28/16 0400 Results 24 hrs Laboratory Tests Test 11/28/16 04:00 White Blood Count 6.710^3/ul Red Blood Count 3.9910^6/ul Hemoglobin 11.1g/dl Hematocrit 34.9% Mean Corpuscular Volume 87.5fl Mean Corpuscular Hemoglobin 27.8pg Mean Corpuscular Hemoglobin Concent 31.8g/dl Red Cell Distribution Width 14.4% Platelet Count 08557^3/UL Mean Platelet Volume 10.2fl Neutrophils % 57.7% Lymphocytes % 26.7% Monocytes % 11.6% Eosinophils % 3.3% Basophils % 0.4% Nucleated Red Blood Cells % 0.0/100WBC Neutrophils # 3.910^3/ul Lymphocytes # 1.810^3/ul Monocytes # 0.810^3/ul Eosinophils # 0.210^3/ul Basophils # 0.010^3/ul Nucleated Red Blood Cells # 0.010^3/ul Prothrombin Time 13.1Sec Prothrombin Time Ratio 1.0 INR International Normalized Ratio 0.99 Activated Partial Thromboplast Time 26.5Sec Sodium Level 138mmol/L Potassium Level 4.0mmol/L Chloride Level 101mmol/L Carbon Dioxide Level 27mmol/L Anion Gap 14 Blood Urea Nitrogen 27mg/dl Creatinine 0.98mg/dl Glucose Level 231mg/dl Calcium Level 9.2mg/dl Troponin I 0.016ng/ml Current Medications Medications (Trade) Dose Ordered Sig/Cecil Route PRN Reason Start Time Stop Time Status Last Admin Dose Admin Aspirin (Aspirin) 325 mg ONCE STAT PO 11/28/16 03:30 11/28/16 03:34 DC 11/28/16 03:56 Nitroglycerin (Nitroglycerin 2% Oint) 1 inch ONCE STAT TD 11/28/16 03:30 11/28/16 03:34 DC 11/28/16 03:57 Nitroglycerin (Nitroglycerin (Sl Tab) 0.4 Mg) 1 tab Q5M UP TO 3 DOSES PRN SL CHEST PAIN 11/28/16 03:30 11/28/16 03:57 Procedures/MDM PROCEDURE: Chest. CLINICAL INDICATION: Chest pain. TECHNIQUE: Single frontal view of the chest was obtained. COMPARISON: 10/29/2016. FINDINGS: There is a left-sided pacemaker AICD. Mediasternotomy wires are present. The cardiac silhouette is enlarged. The aortic arch is calcified. There is mild central vascular congestion. There is a small left pleural effusion. There is no pneumothorax. IMPRESSION: Cardiomegaly and mild central vascular congestion. Small left-sided pleural effusion. Aortic atherosclerosis. .Estuardo Leyva MD, Date Time Electronically viewed and signed by .Estuardo Leyva MD, on 11/28/2016 04:21 .T/ CC: ARTUR BOO DO EKG: Rate/Rhythm: Normal sinus rhythm heart rate 81 with left axis deviation QRS, ST, QT: NORMAL [place], QRS, QT] Impression: Abnormal EKG Patient has some central vascular congestion which seems to be a recurring theme here. The patient has chest pain again. Is frequently seen here for the same thing with multiple admissions. Does have significant coronary disease and has a frail cardiac condition. He released him to be admitted to the hospital for observation and ruled out for [place], and some diuresis. Patient's symptoms are concerning for cardiac cause will require inpatient workup and continuous monitoring. Further w/u for ischemia, arrhythmia, PE or dissection will be deferred to the inpatient team. Accepting Care Team: Current data and ongoing care discussed. Time: Time of admission Primary Provider: [XOXOXO] Consulting: [XOXOXO] Outstanding Data: none Departure Diagnosis: Primary Impression: Chest pain Qualified Code: R07.9 - Chest pain, unspecified type Condition: Stable ARTUR BOO DO Nov 28, 2016 05:05
[2016-11-28] MEDS ORDERED: ONDANSETRON 4 MG INJ IV STA (05:29)
[2016-11-28] MEDS ORDERED: FUROSEMIDE 40 MG INJ IV STA (05:29)
[2016-11-28] MEDS ORDERED: morphine 2 MG INJ IV STA (05:29)
[2016-11-28] MEDS ORDERED: ONDANSETRON 4 MG INJ IV PRN ×2 (05:30→13:00)
[2016-11-28] MEDS ORDERED: ACETAMINOPHEN 325 MG TAB PO PRN ×2 (05:30→06:00)
[2016-11-28] MEDS ORDERED: PANTOPRAZOLE 40 MG INJ IV SCH (06:00)
[2016-11-28] MEDS ORDERED: NACL 0.9% 3 ML SYG IV SCH (06:00)
[2016-11-28 10:27] LABS: TROPONIN-I 0.034 ng/ml (0.00-0.12)
[2016-11-28 10:54] LABS: CK-MB 1.36 ng/ml (0.0-2.4)
[2016-11-28] MEDS: GABAPENTIN 100 MG CAP PO SCH ×3 (12:50→21:01)
[2016-11-28] MEDS: ASPIRIN (EC) 81 MG TAB PO SCH (12:50)
[2016-11-28] MEDS: RANOLAZINE (SR) 500 MG TAB PO SCH ×2 (12:50→21:02)
--- NOTE | 2016-11-28 12:52 | HP ---
Date/Time of Note Date/Time of Note DATE: 11/28/16 TIME: 11:46 Assessment/Plan VTE Prophylaxis VTE Prophylaxis Intervention: LMWH Lines/Catheters IV [facility]ter [facility]from [facility] Saline Lock Urinary Cath still in place: No Assessment/Plan Assessment/Plan 1. Chest pain, rule out acute coronary syndrome. - cardiology consult- Dr. Olsen notified - Continue telemetry monitoring. 2. Acute on chronic systolic and diastolic congestive heart failure. Continue Lasix. Monitor intake and output and electrolytes. 3. Coronary artery disease, status post coronary artery bypass graft and angioplasty to the left anterior descending. - Continue aspirin and Plavix. 4. Cardiomyopathy with ejection fraction of 35%. 5. Hypertension. 6. Hyperlipidemia. 7. Poorly controlled diabetes mellitus. Continue Lantus and premeal NovoLog. 8. Carotid stenosis. 9. Seizure disorder. Continue Dilantin. - seizure precautions 10. Possible vascular dementia. 11. Protonix for peptic ulcer disease prophylaxis. Further recommendations based on clinical course. Plan of care discussed with Dr. Wright. HPI/ROS Admit Date/Time Admit Date/Time Nov 28, 2016 at 05:31 Hx of Present Illness left chest pressure pain radiating to left arm HPI This is a 56-year-old male with history of hyperlipidemia,coronary artery disease , sp with multiple stents and with cardiomyopathy who is on the [facility] transplant list schedule on 12/06/2016. Patient states she is here for chest pain because he took 7-8 nitroglycerin sublingual for his chest pain and did not get better. Patient is admitted with substernal chest pressure that radiates to the left upper extremity, accompanied with shortness of breath and mild diaphoresis. He is refusing all pain medications because he was told by [facility] that if he takes any morphine or Dilaudid that he will not receive a heart transplant. During assessment, patient is comfortable on supplement oxygen, does not seem in any distress. Denies any headache, palpitations, dizziness, focal weakness or numbness. Denies any trauma/fall. ROS All systems reviewed and are negative except as per history of present illness. llergies Allergies: Coded Allergies: sumatriptan (Unverified Allergy, Unknown, 10/16/16) sumatriptan succinate (Unverified Allergy, Unknown, 10/16/16) venlafaxine HCl (Unverified Allergy, Unknown, 10/16/16) ROS Respiratory: no complaints Cardiovascular: no complaints Gastrointestinal: no complaints Genitourinary: no complaints Musculoskeletal: no complaints PMH/Family/Social Past Medical History PMhx/Soc History of Surgery: Yes (pacemaker, previous trach) Anesthesia Reaction: No Hx Neurological Disorder: Yes (previous CVA 2008) Hx Respiratory Disorders: No Hx Cardiac Disorders: Yes (CHF, HTN, ) Hx Psychiatric Problems: Yes (depression) Hx Miscellaneous Medical Probl: Yes (seratonin syndrome ) Hx Alcohol Use: No Hx Substance Use: No Hx Tobacco Use: No Smoking Status: Never smoker FmHx Family History: coronary disease Past Surgical History Past Surgical Hx: angioplasty Social History Smoking Status: Former smoker Exam/Review of Systems Vital Signs Vitals Vital Signs Date Time Temp Pulse Resp B/P Pulse Ox O2 Delivery O2 Flow Rate FiO2 11/28/16 11:11 Non Rebreather 2.0 11/28/16 11:07 98.0 68 19 131/69 98 Exam Constitutional: alert, oriented, well developed Psych: nl mood/affect Neck: non-tender Respiratory: clear to auscultation, normal air movement Cardiovascular: nl pulses, regular rate and rhythm Gastrointestinal: non-tender, soft Musculoskeletal: nl extremities to inspection Extremities: normal pulses Neurological: nl mental status, nl speech Labs Result Diagram: 11/28/160 11/28/16 0400 Medications Medications Current Medications Acetaminophen (Tylenol Tab) 650 mg Q6H PRN PO PAIN LEVEL 1-3 OR FEVER; Start at 06:00 Pantoprazole (Protonix Iv) 40 mg DAILY@06 IV Last administered on 11/28/16t 06: 28; Admin Dose 40 MG; Start 11/28/16 at 06:00 Nitroglycerin (Nitroglycerin (Sl Tab) 0.4 Mg) 1 tab Q5M PRN SL ANGINA; Start at 06:00 Procedures Procedures EKG: Rate/Rhythm: Normal sinus rhythm heart rate 81 with left axis deviation QRS, ST, QT: NORMAL [place], QRS, QT] Impression: Abnormal EKG ----- PROCEDURE: Chest. CLINICAL INDICATION: Chest pain. TECHNIQUE: Single frontal view of the chest was obtained. COMPARISON: 10/29/2016. FINDINGS: There is a left-sided pacemaker AICD. Mediasternotomy wires are present. The cardiac silhouette is enlarged. The aortic arch is calcified. There is mild central vascular congestion. There is a small left pleural effusion. There is no pneumothorax. IMPRESSION: Cardiomegaly and mild central vascular congestion. Small left-sided pleural effusion. Aortic atherosclerosis. AGA BARNETT Nov 28, 2016 11:56
[2016-11-28] MEDS ORDERED: GLUCOSE GEL 15 GRAM TUBE PO PRN ×2 (13:00)
[2016-11-28] MEDS ORDERED: DEXTROSE 50% 50 ML SYRINGE IV PRN ×2 (13:00)
[2016-11-28] MEDS ORDERED: GLUCOSE GEL 15 GRAM TUBE BUCCAL PRN (13:00)
[2016-11-28] MEDS ORDERED: GLUCAGON 1 MG INJ IM PRN (13:00)
[2016-11-28] MEDS: DIGOXIN 0.125 MG TAB GTB SCH (13:51)
[2016-11-28] MEDS: ALPRAZOLAM 0.5 MG TAB PO SCH ×2 (13:51→22:00)
[2016-11-28] MEDS: ISOSORBIDE MONONITRATE(SR)30 MG TAB PO SCH (13:53)
[2016-11-28 15:45] LABS: TROPONIN-I 0.032 ng/ml (0.00-0.12)
[2016-11-28 15:57] LABS: CK-MB 1.23 ng/ml (0.0-2.4)
[2016-11-28] MEDS: INSULIN ASPART [NOVOLOG] 3 ML PEN SC SCH ×3 (17:32→21:00)
--- NOTE | 2016-11-28 17:40 | CONS ---
Date/Time of Note Date/Time of Note DATE: 11/28/16 TIME: 17:32 Assessment/Plan Assessment/Plan Chief Complaint/Hosp Course IMP: 1.Angina/Chest pain-refractory to medical therapy. [facility] 2016 with all grafts occludede excepy KNOTT which feeds diffusely diseased LAD 2.cad s/p cabg 3.s/p PTCA/stent 4.cardiomyopathy with low EF 5.ICD 6. HTN 7.DM 8.HL Rec: -Tele -serial ecg's -BENJIE -Continue BB/ACEI/imdur/ranexa -Continue asa/plavix -Continue statin -Continue daily lasix diuresis -Ongoing eval for taylert at [facility] better understand where he is in evaluation proccess and listing Problems: Consultation Date/Type/Reason Admit Date/Time Nov 28, 2016 at 05:31 Date of Consultation: Nov 28, 2016 Type of Consultation: cardiology Reason for Consultation chest pain Referring Provider: KY ALEXANDER MD Hx of Present Illness Mr. Louis is a 56-year-old male with history of coronary artery disease, status post prior PTCA and stent placement to obtuse marginal in November 2014, coronary artery bypass graft surgery with patent KNOTT to LAD and all other grafts occluded by catheterization 07/12/2016 and at this time also revealed the patient to have diffuse disease of the distal LAD after the insertion of the KNOTT graft status post PTCA to distal LAD without significant change in symptoms, and attempted [employer] obtuse marginal at [facility] 07/31/2016, currently being evaluated for possible cardiac transplantation at [facility], who re-presents with complaints of shortness of breath refractory angina and generalized weakness. Constitutional: no complaints Eyes: no complaints ENT: no complaints Respiratory: no complaints, shortness of breath Cardiovascular: chest pain, no complaints Gastrointestinal: no complaints Genitourinary: no complaints Musculoskeletal: no complaints, other (weakness) Neurologic: no complaints Endocrine: no complaints Lymphatic: no complaints Psychological: nl mood/affect Past Medical History Medical History: angina, congestive heart failure, coronary artery disease, diabetes, high cholesterol, hypertension Past Surgical History Past Surgical Hx: angioplasty, coronary bypass surgery Family History Significant Family History: no pertinent family hx Social History Alcohol Use: none Smoking Status: Former smoker Drug Use: none Exam/Review of Systems Vital Signs Vitals Vital Signs Date Time Temp Pulse Resp B/P Pulse Ox O2 Delivery O2 Flow Rate FiO2 11/28/16 16:24 64 11/28/16 15:30 98.1 19 132/70 98 11/28/16 11:11 Non Rebreather 2.0 Exam Constitutional: alert Psych: no complaints Head: normocephalic ENMT: mucosa pink and moist Neck: jvd (8 cm water), supple Respiratory: clear to auscultation Cardiovascular: regular rate and rhythm Gastrointestinal: non-tender, soft Musculoskeletal: muscle tone (normal) Extremities: edema (none) Neurological: lethargic Results Result Diagram: 11/28/16 0400 11/28/16 0400 Results 24 hrs Laboratory Tests Test 11/28/16 04:00 11/28/16 09:10 11/28/16 14:55 11/28/16 17:29 White Blood Count 6.7 Red Blood Count 3.99 L Hemoglobin 11.1 L Hematocrit 34.9 L Mean Corpuscular Volume 87.5 Mean Corpuscular Hemoglobin 27.8 L Mean Corpuscular Hemoglobin Concent 31.8 L Red Cell Distribution Width 14.4 Platelet Count 191 Mean Platelet Volume 10.2 Neutrophils % 57.7 Lymphocytes % 26.7 Monocytes % 11.6 H Eosinophils % 3.3 Basophils % 0.4 Nucleated Red Blood Cells % 0.0 Neutrophils # 3.9 Lymphocytes # 1.8 Monocytes # 0.8 Eosinophils # 0.2 Basophils # 0.0 Nucleated Red Blood Cells # 0.0 Prothrombin Time 13.1 Prothrombin Time Ratio 1.0 INR International Normalized Ratio 0.99 Activated Partial Thromboplast Time 26.5 Sodium Level 138 Potassium Level 4.0 Chloride Level 101 Carbon Dioxide Level 27 Anion Gap 14 Blood Urea Nitrogen 27 H Creatinine 0.98 Glucose Level 231 H Calcium Level 9.2 Troponin I 0.016 0.034 0.032 B-Type Natriuretic Peptide 1970 H Creatine Kinase 51 46 Creatine Kinase Index 2.7 2.7 Creatinine Kinase MB (Mass) 1.36 1.23 Bedside Glucose 173 Medications Medications Current Medications Acetaminophen (Tylenol Tab) 650 mg Q6H PRN PO PAIN LEVEL 1-3 OR FEVER; Start at 06:00 Nitroglycerin (Nitroglycerin (Sl Tab) 0.4 Mg) 1 tab Q5M PRN SL ANGINA; Start at 06:00 Alprazolam (Xanax) 0.5 mg Q8 PO Last administered on 11/28/16 13:51; Admin Dose 0.5 MG; Start 11/28/16 at 14:00 Amlodipine Besylate (Norvasc) 5 mg DAILY PO ; Start 11/29/16 at 09:00 Aspirin (Halfprin) 81 mg DAILY PO Last administered on 11/28/16 12:50; Admin Dose 81 MG; Start 11/28/16 at 12:30 Atorvastatin Calcium (Lipitor) 80 mg HS PO ; Start 11/28/16 at 21:00 Baclofen (Lioresal) 10 mg BID PO ; Start 11/28/16 at 21:00 Clopidogrel Bisulfate (plaVIX) 75 mg DAILY PO ; Start 11/29/16 at 09:00 Cyanocobalamin (Vitamin B12) 1,000 mcg DAILY PO ; Start 11/29/16 at 09:00 Docusate Sodium (Colace) 100 mg Q12 PO ; Start 11/28/16 at 21:00 Furosemide (Lasix) 40 mg DAILY PO ; Start 11/29/16 at 09:00 Gabapentin (Neurontin) 100 mg QID PO Last administered on 11/28/16 12:50; Admin Dose 100 MG; Start 11/28/16 at 13:00 Insulin Glargine (Lantus) 30 unit HS SC ; Start 11/28/16 at 21:00 Pantoprazole (Protonix Tab) 40 mg DAILY@06 PO ; Start 11/29/16 at 06:00 Phenytoin (Dilantin) 100 mg HS PO ; Start 11/28/16 at 21:00 Potassium Chloride (Klor-Con 10) 10 meq DAILY PO ; Start 11/29/16 at 09:00 Ranolazine (Ranexa) 1,000 mg Q12 PO Last administered on 11/28/16 12:50; Admin Dose 1,000 MG; Start 11/28/16 at 12:30 Zolpidem Tartrate (Ambien) 10 mg HS PRN PO INSOMNIA; Start 11/28/16 at 12:30 Miscellaneous Information 1 ea NOTE XX ; Start 11/28/16 at 13:00 Glucose (Glutose) 15 gm Q15M PRN PO DECREASED GLUCOSE; Start 11/28/16 at 13:00 Glucose (Glutose) 22.5 gm Q15M PRN PO DECREASED GLUCOSE; Start 11/28/16 at 13: 00 Dextrose (D50w Syringe) 25 ml Q15M PRN IV DECREASED GLUCOSE; Start 11/28/16 at 13:00 Dextrose (D50w Syringe) 50 ml Q15M PRN IV DECREASED GLUCOSE; Start 11/28/16 at 13:00 Glucagon (Glucagen) 1 mg Q15M PRN IM DECREASED GLUCOSE; Start 11/28/16 at 13:00 Glucose (Glutose) 15 gm Q15M PRN BUCCAL DECREASED GLUCOSE; Start 11/28/16 at 13 :00 Enoxaparin Sodium (Lovenox) 30 mg DAILY SC ; Start 11/29/16 at 09:00 Ondansetron HCl (Zofran Inj) 4 mg Q6H PRN IV NAUSEA AND/OR VOMITING; Start at 13:00 Carvedilol (Coreg) 12.5 mg BID PO ; Start 11/28/16 at 21:00 Diagnostic Test (Pha) (Accu-Chek) 1 ea 02 XX ; Start 11/29/16 at 02:00 Digoxin (Digoxin) 0.125 mg DAILY@13 GTB Last administered on 11/28/16 13:51; Admin Dose 0.125 MG; Start 11/28/16 at 14:00 Losartan Potassium (Cozaar) 50 mg Q12 PO ; Start 11/28/16 at 21:00 Isosorbide Mononitrate (Imdur) 30 mg DAILY PO Last administered on 11/28/16 13 :53; Admin Dose 30 MG; Start 11/28/16 at 14:00 NICHOL ACOSTA Nov 28, 2016 17:40
[2016-11-28 19:37] LABS: CK-MB 1.06 ng/ml (0.0-2.4); TROPONIN-I 0.034 ng/ml (0.00-0.12)
[2016-11-28] MEDS: KETOROLAC 15 MG INJ IV PRN (20:56)
[2016-11-28] MEDS: DOCUSATE SODIUM 100 MG CAP PO SCH (20:59)
[2016-11-28] MEDS: PHENYTOIN 100 MG CAP PO SCH (20:59)
[2016-11-28] MEDS ORDERED: CARvedilol (CR) 10 MG CAP PO SCH (21:00)
[2016-11-28] MEDS: BACLOFEN 10 MG TAB PO SCH (21:00)
[2016-11-28] MEDS: LOSARTAN 50 MG TAB PO SCH (21:01)
[2016-11-28] MEDS: ATORVASTATIN 80 MG TAB PO SCH (21:01)
[2016-11-28] MEDS: INSULIN GLARGINE [LANtus] 3 ML PEN SC SCH (21:09)
[2016-11-28] MEDS: ZOLPIDEM 5 MG TAB PO PRN (21:13)
[2016-11-29] VITALS (15 sets, daily range): BP systolic 107–148; BP diastolic 57–69; PULSE 60–89; RESP 18–20
[2016-11-29] MEDS: ACCU-CHEK XX SCH (02:00)
[2016-11-29 02:01] LABS: TROPONIN-I 0.044 ng/ml (0.00-0.12)
[2016-11-29 02:02] LABS: CK-MB 0.99 ng/ml (0.0-2.4)
[2016-11-29] MEDS: ALPRAZOLAM 0.5 MG TAB PO SCH ×3 (04:15→22:00)
[2016-11-29] MEDS: KETOROLAC 15 MG INJ IV PRN ×3 (04:21→20:54)
[2016-11-29] MEDS: PANTOPRAZOLE (EC) 40 MG TAB PO SCH (07:24)
[2016-11-29] MEDS: INSULIN ASPART [NOVOLOG] 3 ML PEN SC SCH ×7 (07:55→20:58)
[2016-11-29] MEDS: ENOXAPARIN 30 MG/0.3 ML SYG SC SCH (08:06)
[2016-11-29] MEDS: DOCUSATE SODIUM 100 MG CAP PO SCH ×2 (08:07→20:46)
[2016-11-29] MEDS: FUROSEMIDE 40 MG TAB PO SCH (08:08)
[2016-11-29] MEDS: LOSARTAN 50 MG TAB PO SCH ×2 (08:08→20:48)
[2016-11-29] MEDS: BACLOFEN 10 MG TAB PO SCH ×2 (08:08→20:48)
[2016-11-29] MEDS: ASPIRIN (EC) 81 MG TAB PO SCH (08:08)
[2016-11-29] MEDS: ISOSORBIDE MONONITRATE(SR)30 MG TAB PO SCH (08:08)
[2016-11-29] MEDS: POTASSIUM CHLORIDE (SR) 10 MEQ TAB PO SCH (08:08)
[2016-11-29] MEDS: AMLODIPINE 5 MG TAB PO SCH (08:09)
[2016-11-29] MEDS: CLOPIDOGREL 75 MG TAB PO SCH (08:09)
[2016-11-29] MEDS: CYANOCOBALAMIN 500 MCG TAB PO SCH (08:09)
[2016-11-29] MEDS: RANOLAZINE (SR) 500 MG TAB PO SCH ×2 (08:09→20:49)
[2016-11-29] MEDS: GABAPENTIN 100 MG CAP PO SCH ×4 (08:09→20:49)
[2016-11-29 09:45] LABS: BASOPHILS % 0.4 % (0.0-2.0); EOSINOPHILS # 0.2 10^3/ul (0.0-0.5); EOSINOPHILS % 3.1 % (0.0-7.0); HEMOGLOBIN 11.7 g/dl (14.0-18.0); LYMPHOCYTES # 1.2 10^3/ul (0.8-2.9); MEAN CORPUSCULAR HEMOGLOBIN 27.5 pg (29.0-33.0); MEAN CORPUSCULAR HGB CONC 31.6 g/dl (32.0-37.0); MEAN CORPUSCULAR VOLUME 86.9 fl (82.0-101.0); MEAN PLATELET VOLUME 10.2 fl (7.4-10.4); MONOCYTE # 0.8 10^3/ul (0.3-0.9); MONOCYTES % 10.6 % (0.0-11.0); NEUTROPHIL # 5.2 10^3/ul (1.6-7.5); NEUTROPHILS % 69.5 % (39.0-77.0); PLATELET COUNT 188 10^3/UL (140-415); RED BLOOD COUNT 4.26 10^6/ul (4.70-6.10); RED CELL DISTRIBUTION WIDTH 14.7 % (11.5-14.5); WHITE BLOOD COUNT 7.5 10^3/ul (4.8-10.8)
[2016-11-29 09:48] LABS: ADD SCAN DIFF NO
[2016-11-29 10:01] LABS: ALBUMIN 4.6 g/dl (3.3-4.9); ALBUMIN/GLOBULIN RATIO 1.58; BILIRUBIN,INDIRECT 0.7 mg/dl (0-1.1); BILIRUBIN,TOTAL 0.7 mg/dl (0.2-1.3); CALCIUM 9.5 mg/dl (8.4-10.2); CREATININE 0.94 mg/dl (0.61-1.24); POTASSIUM 4.3 mmol/L (3.5-5.1); TOTAL PROTEIN 7.5 g/dl (6.1-8.1)
[2016-11-29 10:02] LABS: CHOL/HDL RATIO 5.3 RATIO
[2016-11-29] MEDS: DIGOXIN 0.125 MG TAB GTB SCH (12:18)
[2016-11-29 12:40] LABS: THYROID STIMULATING HORMONE 0.168 MIU/L (0.465-4.680)
--- NOTE | 2016-11-29 12:44 | PN ---
Date/Time of Note Date/Time of Note DATE: 11/29/16 TIME: 12:37 Assessment/Plan VTE Prophylaxis VTE Prophylaxis Intervention: LMWH Lines/Catheters [facility] Urinary Cath still in place: No Assessment/Plan Chief Complaint/Hosp Course Patient with unstable gait, complains of intermittent chest pain, instructed to get out of bed with help. ASSESSMENT AND PLAN: - Acute on chronic angina, Dr. Olsen is following patient in cardiology consultation. Continue telemetry monitoring. Toradol for pain. - Acute on chronic systolic and diastolic congestive heart failure. Continue Lasix. Monitor intake and output, electrolytes. - Coronary artery disease, status post coronary artery bypass graft and angioplasty to the left anterior descending. Continue aspirin and Plavix. - Cardiomyopathy with ejection fraction of 35%. Patient is undergoing evaluation for heart transplant at [facility], according to the patient is not supposed to receive morphine or Dilaudid. - Hypertension. Continue Coreg, Norvasc. - Hyperlipidemia. - Poorly controlled diabetes mellitus. Continue Lantus and premeal NovoLog. - Carotid stenosis. - Seizure disorder. Continue Dilantin. - Possible vascular dementia. Further recommendations based on clinical course. Plan of care discussed with Dr. Wright. Problems: Exam/Review of Systems Vital Signs Vitals Vital Signs Date Time Temp Pulse Resp B/P Pulse Ox O2 Delivery O2 Flow Rate FiO2 11/29/16 11:16 98.5 79 19 107/57 98 11/29/16 08:10 Nasal Cannula 2.0 Intake and Output 11/28/16 11/28/16 11/29/16 15:00 23:00 07:00 Intake Total 1500 ml 550 ml Output Total 2000 ml 900 ml Balance -500 ml -350 ml Results Result Diagram: 11/29/16 0920 11/29/16 0920 Results 24 hrs Laboratory Tests Test 11/28/16 14:55 11/28/16 17:29 11/28/16 18:50 11/28/16 20:32 Creatine Kinase 46 42 Creatine Kinase Index 2.7 2.5 Creatinine Kinase MB (Mass) 1.23 1.06 Troponin I 0.032 0.034 0.035 Bedside Glucose 173 Test 11/28/16 21:06 11/29/16 00:44 11/29/16 07:57 11/29/16 09:20 Bedside Glucose 161 139 Creatine Kinase 36 Creatine Kinase Index 2.8 Creatinine Kinase MB (Mass) 0.99 Troponin I 0.044 White Blood Count 7.5 Red Blood Count 4.26 L Hemoglobin 11.7 L Hematocrit 37.0 L Mean Corpuscular Volume 86.9 Mean Corpuscular Hemoglobin 27.5 L Mean Corpuscular Hemoglobin Concent 31.6 L Red Cell Distribution Width 14.7 H Platelet Count 188 Mean Platelet Volume 10.2 Neutrophils % 69.5 Lymphocytes % 16.0 Monocytes % 10.6 Eosinophils % 3.1 Basophils % 0.4 Nucleated Red Blood Cells % 0.0 Neutrophils # 5.2 Lymphocytes # 1.2 Monocytes # 0.8 Eosinophils # 0.2 Basophils # 0.0 Nucleated Red Blood Cells # 0.0 Sodium Level 136 Potassium Level 4.3 Chloride Level 99 Carbon Dioxide Level 28 Anion Gap 13 Blood Urea Nitrogen 26 H Creatinine 0.94 Glucose Level 151 Calcium Level 9.5 Total Bilirubin 0.7 Direct Bilirubin 0.00 Indirect Bilirubin 0.7 Aspartate Amino Transf (AST/SGOT) 17 Alanine Aminotransferase (ALT/SGPT) 36 Alkaline Phosphatase 62 Total Protein 7.5 Albumin 4.6 Globulin 2.90 Albumin/Globulin Ratio 1.58 Triglycerides Level 174 H Cholesterol Level 215 H LDL Cholesterol, Calculated 140 HDL Cholesterol 40 Cholesterol/HDL Ratio 5.3 Thyroid Stimulating Hormone (TSH) Pending Phenytoin (Dilantin) Level < 3.0 L Test 11/29/16 12:11 Bedside Glucose 159 Medications Medications Current Medications Acetaminophen (Tylenol Tab) 650 mg Q6H PRN PO PAIN LEVEL 1-3 OR FEVER; Start at 06:00 Nitroglycerin (Nitroglycerin (Sl Tab) 0.4 Mg) 1 tab Q5M PRN SL ANGINA; Start at 06:00 Alprazolam (Xanax) 0.5 mg Q8 PO Last administered on 11/29/16 04:15; Admin Dose 0.5 MG; Start 11/28/16 at 14:00 Amlodipine Besylate (Norvasc) 5 mg DAILY PO Last administered on 11/29/16 08: 09; Admin Dose 5 MG; Start 11/29/16 at 09:00 Aspirin (Halfprin) 81 mg DAILY PO Last administered on 11/29/16 08:08; Admin Dose 81 MG; Start 11/28/16 at 12:30 Atorvastatin Calcium (Lipitor) 80 mg HS PO Last administered on 11/28/16 21:01 ; Admin Dose 80 MG; Start 11/28/16 at 21:00 Baclofen (Lioresal) 10 mg BID PO Last administered on 11/29/16 08:08; Admin Dose 10 MG; Start 11/28/16 at 21:00 Clopidogrel Bisulfate (plaVIX) 75 mg DAILY PO Last administered on 11/29/16 08 :09; Admin Dose 75 MG; Start 11/29/16 at 09:00 Cyanocobalamin (Vitamin B12) 1,000 mcg DAILY PO Last administered on 11/29/16 08:09; Admin Dose 1,000 MCG; Start 11/29/16 at 09:00 Docusate Sodium (Colace) 100 mg Q12 PO Last administered on 11/29/16 08:07; Admin Dose 100 MG; Start 11/28/16 at 21:00 Furosemide (Lasix) 40 mg DAILY PO Last administered on 11/29/16 08:08; Admin Dose 40 MG; Start 11/29/16 at 09:00 Gabapentin (Neurontin) 100 mg QID PO Last administered on 11/29/16 08:09; Admin Dose 100 MG; Start 11/28/16 at 13:00 Insulin Glargine (Lantus) 30 unit HS SC Last administered on 11/28/16 21:09; Admin Dose 30 UNIT; Start 11/28/16 at 21:00 Pantoprazole (Protonix Tab) 40 mg DAILY@06 PO Last administered on 11/29/16 07 :24; Admin Dose 40 MG; Start 11/29/16 at 06:00 Phenytoin (Dilantin) 100 mg HS PO Last administered on 11/28/16 20:59; Admin Dose 100 MG; Start 11/28/16 at 21:00 Potassium Chloride (Klor-Con 10) 10 meq DAILY PO Last administered on 08:08; Admin Dose 10 MEQ; Start 11/29/16 at 09:00 Ranolazine (Ranexa) 1,000 mg Q12 PO Last administered on 11/29/16 08:09; Admin Dose 1,000 MG; Start 11/28/16 at 12:30 Zolpidem Tartrate (Ambien) 10 mg HS PRN PO INSOMNIA Last administered on 21:13; Admin Dose 10 MG; Start 11/28/16 at 12:30 Miscellaneous Information 1 ea NOTE XX ; Start 11/28/16 at 13:00 Glucose (Glutose) 15 gm Q15M PRN PO DECREASED GLUCOSE; Start 11/28/16 at 13:00 Glucose (Glutose) 22.5 gm Q15M PRN PO DECREASED GLUCOSE; Start 11/28/16 at 13: 00 Dextrose (D50w Syringe) 25 ml Q15M PRN IV DECREASED GLUCOSE; Start 11/28/16 at 13:00 Dextrose (D50w Syringe) 50 ml Q15M PRN IV DECREASED GLUCOSE; Start 11/28/16 at 13:00 Glucagon (Glucagen) 1 mg Q15M PRN IM DECREASED GLUCOSE; Start 11/28/16 at 13:00 Glucose (Glutose) 15 gm Q15M PRN BUCCAL DECREASED GLUCOSE; Start 11/28/16 at 13 :00 Enoxaparin Sodium (Lovenox) 30 mg DAILY SC Last administered on 11/29/16 08:06 ; Admin Dose 30 MG; Start 11/29/16 at 09:00 Ondansetron HCl (Zofran Inj) 4 mg Q6H PRN IV NAUSEA AND/OR VOMITING; Start at 13:00 Carvedilol (Coreg) 12.5 mg BID PO Last administered on 11/29/16 08:08; Admin Dose 12.5 MG; Start 11/28/16 at 21:00 Diagnostic Test (Pha) (Accu-Chek) 1 ea 02 XX ; Start 11/29/16 at 02:00 Digoxin (Digoxin) 0.125 mg DAILY@13 GTB Last administered on 11/28/16 13:51; Admin Dose 0.125 MG; Start 11/28/16 at 14:00 Losartan Potassium (Cozaar) 50 mg Q12 PO Last administered on 11/29/16 08:08; Admin Dose 50 MG; Start 11/28/16 at 21:00 Isosorbide Mononitrate (Imdur) 30 mg DAILY PO Last administered on 11/29/16 08 :08; Admin Dose 30 MG; Start 11/28/16 at 14:00 Ketorolac Tromethamine (Toradol) 15 mg Q6H PRN IV PAIN Last administered on 04:21; Admin Dose 15 MG; Start 11/28/16 at 20:30; Stop 12/01/16 at 20:29 LIBRADO MORENO Nov 29, 2016 12:44 LIBRADO MORENO Nov 29, 2016 12:44
--- NOTE | 2016-11-29 14:52 | CONS ---
Date/Time of Note Date/Time of Note DATE: 11/29/16 TIME: 14:48 Assessment/Plan Assessment/Plan Chief Complaint/Hosp Course IMP: 1.Angina/Chest pain-refractory to medical therapy. [facility] 2016 with all grafts occluded except KNOTT which feeds diffusely diseased LAD. Negative trop x 3 since admit 2.cad s/p cabg 3.s/p PTCA/stent 4.cardiomyopathy with low EF 5.ICD 6. HTN 7.DM 8.HL Rec: -Tele -serial ecg's -Continue BB/ACEI/imdur/ranexa -Continue asa/plavix -Continue statin -Continue daily lasix diuresis -Ongoing eval for trasnplant at [facility] and will contact coordinator to better understand where he is in evaluation process and listing Problems: Consultation Date/Type/Reason Admit Date/Time Nov 28, 2016 at 05:31 Initial Consult Date 11/28/16 Type of Consultation: cardiology Reason for Consultation chest pain Referring Provider: KY ALEXANDER MD Exam/Review of Systems Vital Signs Vitals Vital Signs Date Time Temp Pulse Resp B/P Pulse Ox O2 Delivery O2 Flow Rate FiO2 11/29/16 12:52 61 11/29/16 11:16 98.5 19 107/57 98 11/29/16 08:10 Nasal Cannula 2.0 Intake and Output 11/28/16 11/28/16 11/29/16 15:00 23:00 07:00 Intake Total 1500 ml 550 ml Output Total 2000 ml 900 ml Balance -500 ml -350 ml Exam Review of Systems: CONSTITUTIONAL: No fevers, chills. PULMONARY: No sob CARDIOVASCULAR: No chest pain/palpitations GASTROINTESTINAL: No nausea/vomiting. GENITOURINARY: No hematuria/dysuria. MUSCULOSKELETAL: No myagias/arthalgias. PSYCHIATRIC: The patient denies depression. NEUROLOGIC: No weakness Constitutional: alert Psych: no complaints Head: normocephalic ENMT: mucosa pink and moist Neck: jvd, supple Respiratory: diminished breath sounds Cardiovascular: regular rate and rhythm Gastrointestinal: non-tender, soft Musculoskeletal: muscle tone (normal) Extremities: edema (none) Neurological: other (No focal deficits) Results Result Diagram: 11/29/16 0920 11/29/16 0920 Results 24 hrs Laboratory Tests Test 11/28/16 14:55 11/28/16 17:29 11/28/16 18:50 11/28/16 20:32 Creatine Kinase 46 42 Creatine Kinase Index 2.7 2.5 Creatinine Kinase MB (Mass) 1.23 1.06 Troponin I 0.032 0.034 0.035 Bedside Glucose 173 Test 11/28/16 21:06 11/29/16 00:44 11/29/16 07:57 11/29/16 09:20 Bedside Glucose 161 139 Creatine Kinase 36 Creatine Kinase Index 2.8 Creatinine Kinase MB (Mass) 0.99 Troponin I 0.044 White Blood Count 7.5 Red Blood Count 4.26 L Hemoglobin 11.7 L Hematocrit 37.0 L Mean Corpuscular Volume 86.9 Mean Corpuscular Hemoglobin 27.5 L Mean Corpuscular Hemoglobin Concent 31.6 L Red Cell Distribution Width 14.7 H Platelet Count 188 Mean Platelet Volume 10.2 Neutrophils % 69.5 Lymphocytes % 16.0 Monocytes % 10.6 Eosinophils % 3.1 Basophils % 0.4 Nucleated Red Blood Cells % 0.0 Neutrophils # 5.2 Lymphocytes # 1.2 Monocytes # 0.8 Eosinophils # 0.2 Basophils # 0.0 Nucleated Red Blood Cells # 0.0 Sodium Level 136 Potassium Level 4.3 Chloride Level 99 Carbon Dioxide Level 28 Anion Gap 13 Blood Urea Nitrogen 26 H Creatinine 0.94 Glucose Level 151 Calcium Level 9.5 Total Bilirubin 0.7 Direct Bilirubin 0.00 Indirect Bilirubin 0.7 Aspartate Amino Transf (AST/SGOT) 17 Alanine Aminotransferase (ALT/SGPT) 36 Alkaline Phosphatase 62 Total Protein 7.5 Albumin 4.6 Globulin 2.90 Albumin/Globulin Ratio 1.58 Triglycerides Level 174 H Cholesterol Level 215 H LDL Cholesterol, Calculated 140 HDL Cholesterol 40 Cholesterol/HDL Ratio 5.3 Thyroid Stimulating Hormone (TSH) 0.168 L Phenytoin (Dilantin) Level < 3.0 L Test 11/29/16 12:11 Bedside Glucose 159 Medications Medications Current Medications Acetaminophen (Tylenol Tab) 650 mg Q6H PRN PO PAIN LEVEL 1-3 OR FEVER; Start at 06:00 Nitroglycerin (Nitroglycerin (Sl Tab) 0.4 Mg) 1 tab Q5M PRN SL ANGINA; Start at 06:00 Alprazolam (Xanax) 0.5 mg Q8 PO Last administered on 11/29/16 04:15; Admin Dose 0.5 MG; Start 11/28/16 at 14:00 Amlodipine Besylate (Norvasc) 5 mg DAILY PO Last administered on 11/29/16 08: 09; Admin Dose 5 MG; Start 11/29/16 at 09:00 Aspirin (Halfprin) 81 mg DAILY PO Last administered on 11/29/16 08:08; Admin Dose 81 MG; Start 11/28/16 at 12:30 Atorvastatin Calcium (Lipitor) 80 mg HS PO Last administered on 11/28/16 21:01 ; Admin Dose 80 MG; Start 11/28/16 at 21:00 Baclofen (Lioresal) 10 mg BID PO Last administered on 11/29/16 08:08; Admin Dose 10 MG; Start 11/28/16 at 21:00 Clopidogrel Bisulfate (plaVIX) 75 mg DAILY PO Last administered on 11/29/16 08 :09; Admin Dose 75 MG; Start 11/29/16 at 09:00 Cyanocobalamin (Vitamin B12) 1,000 mcg DAILY PO Last administered on 11/29/16 08:09; Admin Dose 1,000 MCG; Start 11/29/16 at 09:00 Docusate Sodium (Colace) 100 mg Q12 PO Last administered on 11/29/16 08:07; Admin Dose 100 MG; Start 11/28/16 at 21:00 Furosemide (Lasix) 40 mg DAILY PO Last administered on 11/29/16 08:08; Admin Dose 40 MG; Start 11/29/16 at 09:00 Gabapentin (Neurontin) 100 mg QID PO Last administered on 11/29/16 12:18; Admin Dose 100 MG; Start 11/28/16 at 13:00 Insulin Glargine (Lantus) 30 unit HS SC Last administered on 11/28/16 21:09; Admin Dose 30 UNIT; Start 11/28/16 at 21:00 Pantoprazole (Protonix Tab) 40 mg DAILY@06 PO Last administered on 11/29/16 07 :24; Admin Dose 40 MG; Start 11/29/16 at 06:00 Phenytoin (Dilantin) 100 mg HS PO Last administered on 11/28/16 20:59; Admin Dose 100 MG; Start 11/28/16 at 21:00 Potassium Chloride (Klor-Con 10) 10 meq DAILY PO Last administered on 08:08; Admin Dose 10 MEQ; Start 11/29/16 at 09:00 Ranolazine (Ranexa) 1,000 mg Q12 PO Last administered on 11/29/16 08:09; Admin Dose 1,000 MG; Start 11/28/16 at 12:30 Zolpidem Tartrate (Ambien) 10 mg HS PRN PO INSOMNIA Last administered on 21:13; Admin Dose 10 MG; Start 11/28/16 at 12:30 Miscellaneous Information 1 ea NOTE XX ; Start 11/28/16 at 13:00 Glucose (Glutose) 15 gm Q15M PRN PO DECREASED GLUCOSE; Start 11/28/16 at 13:00 Glucose (Glutose) 22.5 gm Q15M PRN PO DECREASED GLUCOSE; Start 11/28/16 at 13: 00 Dextrose (D50w Syringe) 25 ml Q15M PRN IV DECREASED GLUCOSE; Start 11/28/16 at 13:00 Dextrose (D50w Syringe) 50 ml Q15M PRN IV DECREASED GLUCOSE; Start 11/28/16 at 13:00 Glucagon (Glucagen) 1 mg Q15M PRN IM DECREASED GLUCOSE; Start 11/28/16 at 13:00 Glucose (Glutose) 15 gm Q15M PRN BUCCAL DECREASED GLUCOSE; Start 11/28/16 at 13 :00 Enoxaparin Sodium (Lovenox) 30 mg DAILY SC Last administered on 11/29/16 08:06 ; Admin Dose 30 MG; Start 11/29/16 at 09:00 Ondansetron HCl (Zofran Inj) 4 mg Q6H PRN IV NAUSEA AND/OR VOMITING; Start at 13:00 Carvedilol (Coreg) 12.5 mg BID PO Last administered on 11/29/16 08:08; Admin Dose 12.5 MG; Start 11/28/16 at 21:00 Diagnostic Test (Pha) (Accu-Chek) 1 ea 02 XX ; Start 11/29/16 at 02:00 Digoxin (Digoxin) 0.125 mg DAILY@13 GTB Last administered on 11/29/16 12:18; Admin Dose 0.125 MG; Start 11/28/16 at 14:00 Losartan Potassium (Cozaar) 50 mg Q12 PO Last administered on 11/29/16 08:08; Admin Dose 50 MG; Start 11/28/16 at 21:00 Isosorbide Mononitrate (Imdur) 30 mg DAILY PO Last administered on 11/29/16 08 :08; Admin Dose 30 MG; Start 11/28/16 at 14:00 Ketorolac Tromethamine (Toradol) 15 mg Q6H PRN IV PAIN Last administered on 14:32; Admin Dose 15 MG; Start 11/28/16 at 20:30; Stop 12/01/16 at 20:29 NICHOL ACOSTA Nov 29, 2016 14:52
[2016-11-29] MEDS: PHENYTOIN 100 MG CAP PO SCH (20:48)
[2016-11-29] MEDS: ATORVASTATIN 80 MG TAB PO SCH (20:49)
[2016-11-29] MEDS: INSULIN GLARGINE [LANtus] 3 ML PEN SC SCH (21:10)
[2016-11-30] VITALS (12 sets, daily range): BP systolic 121–130; BP diastolic 57–67; PULSE 60–66; RESP 18–20
[2016-11-30] MEDS: ZOLPIDEM 5 MG TAB PO PRN ×2 (00:06→23:34)
[2016-11-30] MEDS: ACCU-CHEK XX SCH (02:00)
[2016-11-30] MEDS: KETOROLAC 15 MG INJ IV PRN ×4 (03:01→21:23)
[2016-11-30] MEDS: PANTOPRAZOLE (EC) 40 MG TAB PO SCH (05:06)
[2016-11-30] MEDS: ALPRAZOLAM 0.5 MG TAB PO SCH ×3 (05:06→21:23)
[2016-11-30 07:26] LABS: BASOPHILS % 0.6 % (0.0-2.0); EOSINOPHILS # 0.2 10^3/ul (0.0-0.5); EOSINOPHILS % 3.8 % (0.0-7.0); HEMATOCRIT 34.4 % (42.0-52.0); HEMOGLOBIN 11.1 g/dl (14.0-18.0); LYMPHOCYTES # 1.5 10^3/ul (0.8-2.9); LYMPHOCYTES % 27.9 % (15.0-51.0); MEAN CORPUSCULAR HGB CONC 32.3 g/dl (32.0-37.0); MEAN CORPUSCULAR VOLUME 86.9 fl (82.0-101.0); MEAN PLATELET VOLUME 10.5 fl (7.4-10.4); MONOCYTE # 0.7 10^3/ul (0.3-0.9); MONOCYTES % 12.8 % (0.0-11.0); NEUTROPHIL # 2.9 10^3/ul (1.6-7.5); NEUTROPHILS % 54.7 % (39.0-77.0); PLATELET COUNT 173 10^3/UL (140-415); RED BLOOD COUNT 3.96 10^6/ul (4.70-6.10); RED CELL DISTRIBUTION WIDTH 14.3 % (11.5-14.5); WHITE BLOOD COUNT 5.3 10^3/ul (4.8-10.8)
[2016-11-30 07:54] LABS: CALCIUM 9.4 mg/dl (8.4-10.2); CREATININE 0.94 mg/dl (0.61-1.24); POTASSIUM 4.2 mmol/L (3.5-5.1)
[2016-11-30] MEDS: INSULIN ASPART [NOVOLOG] 3 ML PEN SC SCH ×7 (08:55→20:38)
[2016-11-30] MEDS: DOCUSATE SODIUM 100 MG CAP PO SCH ×2 (09:00→20:28)
[2016-11-30] MEDS: ENOXAPARIN 30 MG/0.3 ML SYG SC SCH (09:01)
[2016-11-30] MEDS: ASPIRIN (EC) 81 MG TAB PO SCH (09:04)
[2016-11-30] MEDS: RANOLAZINE (SR) 500 MG TAB PO SCH ×2 (09:04→20:27)
[2016-11-30] MEDS: ISOSORBIDE MONONITRATE(SR)30 MG TAB PO SCH (09:05)
[2016-11-30] MEDS: POTASSIUM CHLORIDE (SR) 10 MEQ TAB PO SCH (09:05)
[2016-11-30] MEDS: LOSARTAN 50 MG TAB PO SCH ×2 (09:06→20:28)
[2016-11-30] MEDS: GABAPENTIN 100 MG CAP PO SCH ×4 (09:06→20:28)
[2016-11-30] MEDS: CLOPIDOGREL 75 MG TAB PO SCH (09:07)
[2016-11-30] MEDS: CYANOCOBALAMIN 500 MCG TAB PO SCH (09:07)
[2016-11-30] MEDS: FUROSEMIDE 40 MG TAB PO SCH (09:09)
[2016-11-30] MEDS: AMLODIPINE 5 MG TAB PO SCH (09:09)
[2016-11-30] MEDS: BACLOFEN 10 MG TAB PO SCH ×2 (09:10→20:29)
[2016-11-30] MEDS: DIGOXIN 0.125 MG TAB GTB SCH (13:17)
--- NOTE | 2016-11-30 14:50 | CONS ---
Date/Time of Note Date/Time of Note DATE: 11/30/16 TIME: 14:48 Assessment/Plan Assessment/Plan Additional Assessment/Plan 1.Angina/Chest pain-refractory to medical therapy. [facility] 2016 with all grafts occluded except KNOTT which feeds diffusely diseased LAD. Negative trop x 3 since admit - pt will go to [facility] for eval 12/06/2016 - stable now 2.cad s/p cabg - CP - refractory to Rx 3.s/p PTCA/stent - no signs of new Mi now 4.cardiomyopathy with low EF - ICD in palce 5.ICD - good fxn 6. HTN 7.DM 8.HL Consultation Date/Type/Reason Admit Date/Time Nov 28, 2016 at 05:31 Initial Consult Date 11/28/16 Type of Consultation: cardiology Referring Provider: KY ALEXANDER MD 24 HR Interval Summary Free Text/Dictation pt with go tu [facility] for eval 12/06/2016 - stable now ROS: No fever, no chills, no nausea, no vomiting, no diarrhea/constipation No recent weight changes + chest pain, no PND, no orthopnea No dizziness, blurred vision No thirst, no heat or cold intolerance Exam/Review of Systems Vital Signs Vitals Vital Signs Date Time Temp Pulse Resp B/P Pulse Ox O2 Delivery O2 Flow Rate FiO2 11/30/16 12:00 62 11/30/16 11:25 98.0 19 122/62 97 11/30/16 10:35 Nasal Cannula 2.0 Intake and Output 11/29/16 11/29/16 11/30/16 15:00 23:00 07:00 Intake Total 600 ml 550 ml Output Total 3 ml 4 ml Balance 597 ml 546 ml Exam General: WN/WD/NAD, AOx 3 HEENT: Unicetric/atraumatic/EOMI (follow commands) NECK: JVD elevated, no thyromegaly Lymph: no lymphadenopathy HEART: regular with no S3, II/ systolic murmur at apex LUNGS: Coarse sounds ABD: soft, NT, ND, +BS : Intact Neuro: non focal SKIN: chronic changes EXT: trace edema Results Result Diagram: 11/30/16 0645 11/30/16 0645 Results 24 hrs Laboratory Tests Test 11/29/16 17:37 11/29/16 20:57 11/30/16 06:45 11/30/16 08:20 Bedside Glucose 198 118 254 H White Blood Count 5.3 # Red Blood Count 3.96 L Hemoglobin 11.1 L Hematocrit 34.4 L Mean Corpuscular Volume 86.9 Mean Corpuscular Hemoglobin 28.0 L Mean Corpuscular Hemoglobin Concent 32.3 Red Cell Distribution Width 14.3 Platelet Count 173 Mean Platelet Volume 10.5 H Neutrophils % 54.7 Lymphocytes % 27.9 Monocytes % 12.8 H Eosinophils % 3.8 Basophils % 0.6 Nucleated Red Blood Cells % 0.0 Neutrophils # 2.9 Lymphocytes # 1.5 Monocytes # 0.7 Eosinophils # 0.2 Basophils # 0.0 Nucleated Red Blood Cells # 0.0 Sodium Level 138 Potassium Level 4.2 Chloride Level 99 Carbon Dioxide Level 24 Anion Gap 19 H Blood Urea Nitrogen 35 H Creatinine 0.94 Glucose Level 239 H Calcium Level 9.4 Test 11/30/16 12:21 Bedside Glucose 227 H Medications Medications Current Medications Acetaminophen (Tylenol Tab) 650 mg Q6H PRN PO PAIN LEVEL 1-3 OR FEVER; Start at 06:00 Nitroglycerin (Nitroglycerin (Sl Tab) 0.4 Mg) 1 tab Q5M PRN SL ANGINA; Start at 06:00 Alprazolam (Xanax) 0.5 mg Q8 PO Last administered on 11/30/16 13:17; Admin Dose 0.5 MG; Start 11/28/16 at 14:00 Amlodipine Besylate (Norvasc) 5 mg DAILY PO Last administered on 11/30/16 09:09 ; Admin Dose 5 MG; Start 11/29/16 at 09:00 Aspirin (Halfprin) 81 mg DAILY PO Last administered on 11/30/16 09:04; Admin Dose 81 MG; Start 11/28/16 at 12:30 Atorvastatin Calcium (Lipitor) 80 mg HS PO Last administered on 11/29/16 20:49 ; Admin Dose 80 MG; Start 11/28/16 at 21:00 Baclofen (Lioresal) 10 mg BID PO Last administered on 11/30/16 09:10; Admin Dose 10 MG; Start 11/28/16 at 21:00 Clopidogrel Bisulfate (plaVIX) 75 mg DAILY PO Last administered on 11/30/16 09: 07; Admin Dose 75 MG; Start 11/29/16 at 09:00 Cyanocobalamin (Vitamin B12) 1,000 mcg DAILY PO Last administered on 11/30/16 09:07; Admin Dose 1,000 MCG; Start 11/29/16 at 09:00 Docusate Sodium (Colace) 100 mg Q12 PO Last administered on 11/29/16 08:07; Admin Dose 100 MG; Start 11/28/16 at 21:00 Furosemide (Lasix) 40 mg DAILY PO Last administered on 11/30/16 09:09; Admin Dose 40 MG; Start 11/29/16 at 09:00 Gabapentin (Neurontin) 100 mg QID PO Last administered on 11/30/16 13:17; Admin Dose 100 MG; Start 11/28/16 at 13:00 Insulin Glargine (Lantus) 30 unit HS SC Last administered on 11/29/16 21:10; Admin Dose 30 UNIT; Start 11/28/16 at 21:00 Pantoprazole (Protonix Tab) 40 mg DAILY@06 PO Last administered on 11/30/16 05: 06; Admin Dose 40 MG; Start 11/29/16 at 06:00 Phenytoin (Dilantin) 100 mg HS PO Last administered on 11/29/16 20:48; Admin Dose 100 MG; Start 11/28/16 at 21:00 Potassium Chloride (Klor-Con 10) 10 meq DAILY PO Last administered on 11/30/16 09:05; Admin Dose 10 MEQ; Start 11/29/16 at 09:00 Ranolazine (Ranexa) 1,000 mg Q12 PO Last administered on 11/30/16 09:04; Admin Dose 1,000 MG; Start 11/28/16 at 12:30 Zolpidem Tartrate (Ambien) 10 mg HS PRN PO INSOMNIA Last administered on 00:06; Admin Dose 10 MG; Start 11/28/16 at 12:30 Miscellaneous Information 1 ea NOTE XX ; Start 11/28/16 at 13:00 Glucose (Glutose) 15 gm Q15M PRN PO DECREASED GLUCOSE; Start 11/28/16 at 13:00 Glucose (Glutose) 22.5 gm Q15M PRN PO DECREASED GLUCOSE; Start 11/28/16 at 13: 00 Dextrose (D50w Syringe) 25 ml Q15M PRN IV DECREASED GLUCOSE; Start 11/28/16 at 13:00 Dextrose (D50w Syringe) 50 ml Q15M PRN IV DECREASED GLUCOSE; Start 11/28/16 at 13:00 Glucagon (Glucagen) 1 mg Q15M PRN IM DECREASED GLUCOSE; Start 11/28/16 at 13:00 Glucose (Glutose) 15 gm Q15M PRN BUCCAL DECREASED GLUCOSE; Start 11/28/16 at 13 :00 Enoxaparin Sodium (Lovenox) 30 mg DAILY SC Last administered on 11/30/16 09:01 ; Admin Dose 30 MG; Start 11/29/16 at 09:00 Ondansetron HCl (Zofran Inj) 4 mg Q6H PRN IV NAUSEA AND/OR VOMITING; Start at 13:00 Carvedilol (Coreg) 12.5 mg BID PO Last administered on 11/30/16 09:10; Admin Dose 12.5 MG; Start 11/28/16 at 21:00 Diagnostic Test (Pha) (Accu-Chek) 1 ea 02 XX ; Start 11/29/16 at 02:00 Digoxin (Digoxin) 0.125 mg DAILY@13 GTB Last administered on 11/30/16 13:17; Admin Dose 0.125 MG; Start 11/28/16 at 14:00 Losartan Potassium (Cozaar) 50 mg Q12 PO Last administered on 11/30/16 09:06; Admin Dose 50 MG; Start 11/28/16 at 21:00 Isosorbide Mononitrate (Imdur) 30 mg DAILY PO Last administered on 11/30/16 09: 05; Admin Dose 30 MG; Start 11/28/16 at 14:00 Ketorolac Tromethamine (Toradol) 15 mg Q6H PRN IV PAIN Last administered on 11/30 08:52; Admin Dose 15 MG; Start 11/28/16 at 20:30; Stop 12/01/16 at 20:29 MARTINEZ ODOM MD Nov 30, 2016 14:50
--- NOTE | 2016-11-30 16:02 | PN ---
Date/Time of Note Date/Time of Note DATE: 11/30/16 TIME: 15:51 Assessment/Plan VTE Prophylaxis VTE Prophylaxis Intervention: other Lines/Catheters IV [facility]from [facility] Urinary Cath still in place: No Assessment/Plan Assessment/Plan Patient with unstable gait, complains of intermittent chest pain, instructed to get out of bed with help. ASSESSMENT AND PLAN: - Acute on chronic angina, Dr. Olsen is following patient in cardiology consultation. Continue telemetry monitoring. Toradol for pain. - Acute on chronic systolic and diastolic congestive heart failure. Continue Lasix. Monitor intake and output, electrolytes. - Coronary artery disease, status post coronary artery bypass graft and angioplasty to the left anterior descending. Continue aspirin and Plavix. - Cardiomyopathy with ejection fraction of 35%. Patient is undergoing evaluation for heart transplant at [facility], according to the patient is not supposed to receive morphine or Dilaudid. - Hypertension. Continue Coreg, Norvasc. - Hyperlipidemia. - Poorly controlled diabetes mellitus. Continue Lantus and premeal NovoLog. - Carotid stenosis. - Seizure disorder. Continue Dilantin. - seizure precautions - Possible vascular dementia. Further recommendations based on clinical course. Plan of care discussed with Dr. Wright. Subjective 24 Hr Interval Summary Free Text/Dictation c/o shortness of breath on exertion, denies any chest [ain, afebrile, wants to go home tomorrow as he is possibly scheduled for a heart transplant on 2016. [facility]. Respiratory: shortness of breath Cardiovascular: no complaints Gastrointestinal: no complaints Genitourinary: no complaints Musculoskeletal: no complaints Exam/Review of Systems Vital Signs Vitals Vital Signs Date Time Temp Pulse Resp B/P Pulse Ox O2 Delivery O2 Flow Rate FiO2 11/30/16 15:09 98.3 68 19 130/62 98 11/30/16 10:35 Nasal Cannula 2.0 Intake and Output 11/29/16 11/29/16 11/30/16 15:00 23:00 07:00 Intake Total 600 ml 550 ml Output Total 3 ml 4 ml Balance 597 ml 546 ml Exam Constitutional: alert, oriented, well developed Respiratory: clear to auscultation, normal air movement Cardiovascular: nl pulses, regular rate and rhythm Gastrointestinal: non-tender, soft Musculoskeletal: nl extremities to inspection Extremities: normal pulses Neurological: nl mental status, nl speech Results Result Diagram: 11/30/16 0645 11/30/16 0645 Results 24 hrs Laboratory Tests Test 11/29/16 17:37 11/29/16 20:57 11/30/16 06:45 11/30/16 08:20 Bedside Glucose 198 118 254 H White Blood Count 5.3 # Red Blood Count 3.96 L Hemoglobin 11.1 L Hematocrit 34.4 L Mean Corpuscular Volume 86.9 Mean Corpuscular Hemoglobin 28.0 L Mean Corpuscular Hemoglobin Concent 32.3 Red Cell Distribution Width 14.3 Platelet Count 173 Mean Platelet Volume 10.5 H Neutrophils % 54.7 Lymphocytes % 27.9 Monocytes % 12.8 H Eosinophils % 3.8 Basophils % 0.6 Nucleated Red Blood Cells % 0.0 Neutrophils # 2.9 Lymphocytes # 1.5 Monocytes # 0.7 Eosinophils # 0.2 Basophils # 0.0 Nucleated Red Blood Cells # 0.0 Sodium Level 138 Potassium Level 4.2 Chloride Level 99 Carbon Dioxide Level 24 Anion Gap 19 H Blood Urea Nitrogen 35 H Creatinine 0.94 Glucose Level 239 H Calcium Level 9.4 Test 11/30/16 12:21 Bedside Glucose 227 H Medications Medications Current Medications Acetaminophen (Tylenol Tab) 650 mg Q6H PRN PO PAIN LEVEL 1-3 OR FEVER; Start at 06:00 Nitroglycerin (Nitroglycerin (Sl Tab) 0.4 Mg) 1 tab Q5M PRN SL ANGINA; Start at 06:00 Alprazolam (Xanax) 0.5 mg Q8 PO Last administered on 11/30/16 13:17; Admin Dose 0.5 MG; Start 11/28/16 at 14:00 Amlodipine Besylate (Norvasc) 5 mg DAILY PO Last administered on 11/30/16 09:09 ; Admin Dose 5 MG; Start 11/29/16 at 09:00 Aspirin (Halfprin) 81 mg DAILY PO Last administered on 11/30/16 09:04; Admin Dose 81 MG; Start 11/28/16 at 12:30 Atorvastatin Calcium (Lipitor) 80 mg HS PO Last administered on 11/29/16 20:49 ; Admin Dose 80 MG; Start 11/28/16 at 21:00 Baclofen (Lioresal) 10 mg BID PO Last administered on 11/30/16 09:10; Admin Dose 10 MG; Start 11/28/16 at 21:00 Clopidogrel Bisulfate (plaVIX) 75 mg DAILY PO Last administered on 11/30/16 09: 07; Admin Dose 75 MG; Start 11/29/16 at 09:00 Cyanocobalamin (Vitamin B12) 1,000 mcg DAILY PO Last administered on 11/30/16 09:07; Admin Dose 1,000 MCG; Start 11/29/16 at 09:00 Docusate Sodium (Colace) 100 mg Q12 PO Last administered on 11/29/16 08:07; Admin Dose 100 MG; Start 11/28/16 at 21:00 Furosemide (Lasix) 40 mg DAILY PO Last administered on 11/30/16 09:09; Admin Dose 40 MG; Start 11/29/16 at 09:00 Gabapentin (Neurontin) 100 mg QID PO Last administered on 11/30/16 13:17; Admin Dose 100 MG; Start 11/28/16 at 13:00 Insulin Glargine (Lantus) 30 unit HS SC Last administered on 11/29/16 21:10; Admin Dose 30 UNIT; Start 11/28/16 at 21:00 Pantoprazole (Protonix Tab) 40 mg DAILY@06 PO Last administered on 11/30/16 05: 06; Admin Dose 40 MG; Start 11/29/16 at 06:00 Phenytoin (Dilantin) 100 mg HS PO Last administered on 11/29/16 20:48; Admin Dose 100 MG; Start 11/28/16 at 21:00 Potassium Chloride (Klor-Con 10) 10 meq DAILY PO Last administered on 11/30/16 09:05; Admin Dose 10 MEQ; Start 11/29/16 at 09:00 Ranolazine (Ranexa) 1,000 mg Q12 PO Last administered on 11/30/16 09:04; Admin Dose 1,000 MG; Start 11/28/16 at 12:30 Zolpidem Tartrate (Ambien) 10 mg HS PRN PO INSOMNIA Last administered on 00:06; Admin Dose 10 MG; Start 11/28/16 at 12:30 Miscellaneous Information 1 ea NOTE XX ; Start 11/28/16 at 13:00 Glucose (Glutose) 15 gm Q15M PRN PO DECREASED GLUCOSE; Start 11/28/16 at 13:00 Glucose (Glutose) 22.5 gm Q15M PRN PO DECREASED GLUCOSE; Start 11/28/16 at 13: 00 Dextrose (D50w Syringe) 25 ml Q15M PRN IV DECREASED GLUCOSE; Start 11/28/16 at 13:00 Dextrose (D50w Syringe) 50 ml Q15M PRN IV DECREASED GLUCOSE; Start 11/28/16 at 13:00 Glucagon (Glucagen) 1 mg Q15M PRN IM DECREASED GLUCOSE; Start 11/28/16 at 13:00 Glucose (Glutose) 15 gm Q15M PRN BUCCAL DECREASED GLUCOSE; Start 11/28/16 at 13 :00 Enoxaparin Sodium (Lovenox) 30 mg DAILY SC Last administered on 11/30/16 09:01 ; Admin Dose 30 MG; Start 11/29/16 at 09:00 Ondansetron HCl (Zofran Inj) 4 mg Q6H PRN IV NAUSEA AND/OR VOMITING; Start at 13:00 Carvedilol (Coreg) 12.5 mg BID PO Last administered on 11/30/16 09:10; Admin Dose 12.5 MG; Start 11/28/16 at 21:00 Diagnostic Test (Pha) (Accu-Chek) 1 ea 02 XX ; Start 11/29/16 at 02:00 Digoxin (Digoxin) 0.125 mg DAILY@13 GTB Last administered on 11/30/16 13:17; Admin Dose 0.125 MG; Start 11/28/16 at 14:00 Losartan Potassium (Cozaar) 50 mg Q12 PO Last administered on 11/30/16 09:06; Admin Dose 50 MG; Start 11/28/16 at 21:00 Isosorbide Mononitrate (Imdur) 30 mg DAILY PO Last administered on 11/30/16 09: 05; Admin Dose 30 MG; Start 11/28/16 at 14:00 Ketorolac Tromethamine (Toradol) 15 mg Q6H PRN IV PAIN Last administered on 11/30 14:49; Admin Dose 15 MG; Start 11/28/16 at 20:30; Stop 12/01/16 at 20:29 AGA BARNETT Nov 30, 2016 16:02
[2016-11-30] MEDS: LEVALBUTEROL (NEB) 0.63 MG/3 ML AMP HHN PRN (19:43)
[2016-11-30] MEDS: ATORVASTATIN 80 MG TAB PO SCH (20:27)
[2016-11-30] MEDS: PHENYTOIN 100 MG CAP PO SCH (20:29)
[2016-11-30] MEDS ORDERED: INSULIN GLARGINE [LANtus] 3 ML PEN SC SCH (21:00)
[2016-12-01] VITALS (10 sets, daily range): BP systolic 118–135; BP diastolic 57–64; PULSE 60–98; RESP 18–19
[2016-12-01] MEDS: ACCU-CHEK XX SCH (02:00)
[2016-12-01] MEDS: KETOROLAC 15 MG INJ IV PRN ×2 (04:12→09:53)
[2016-12-01] MEDS: LEVALBUTEROL (NEB) 0.63 MG/3 ML AMP HHN PRN (05:47)
[2016-12-01] MEDS: PANTOPRAZOLE (EC) 40 MG TAB PO SCH (06:01)
[2016-12-01] MEDS: ALPRAZOLAM 0.5 MG TAB PO SCH ×2 (06:01→14:00)
[2016-12-01 06:44] LABS: BASOPHILS % 0.5 % (0.0-2.0); EOSINOPHILS # 0.2 10^3/ul (0.0-0.5); EOSINOPHILS % 3.4 % (0.0-7.0); HEMATOCRIT 34.5 % (42.0-52.0); HEMOGLOBIN 10.9 g/dl (14.0-18.0); LYMPHOCYTES # 1.7 10^3/ul (0.8-2.9); LYMPHOCYTES % 31.2 % (15.0-51.0); MEAN CORPUSCULAR HEMOGLOBIN 27.7 pg (29.0-33.0); MEAN CORPUSCULAR HGB CONC 31.6 g/dl (32.0-37.0); MEAN CORPUSCULAR VOLUME 87.6 fl (82.0-101.0); MEAN PLATELET VOLUME 10.6 fl (7.4-10.4); MONOCYTE # 0.6 10^3/ul (0.3-0.9); MONOCYTES % 10.1 % (0.0-11.0); NEUTROPHILS % 54.3 % (39.0-77.0); PLATELET COUNT 167 10^3/UL (140-415); RED BLOOD COUNT 3.94 10^6/ul (4.70-6.10); RED CELL DISTRIBUTION WIDTH 14.5 % (11.5-14.5); WHITE BLOOD COUNT 5.5 10^3/ul (4.8-10.8)
[2016-12-01 07:09] LABS: CALCIUM 9.4 mg/dl (8.4-10.2); CREATININE 0.83 mg/dl (0.61-1.24); POTASSIUM 4.5 mmol/L (3.5-5.1)
[2016-12-01 07:13] LABS: ADD SCAN DIFF NO
[2016-12-01] MEDS: INSULIN ASPART [NOVOLOG] 3 ML PEN SC SCH ×6 (08:16→17:31)
[2016-12-01] MEDS: GABAPENTIN 100 MG CAP PO SCH ×3 (08:49→16:36)
[2016-12-01] MEDS: CYANOCOBALAMIN 500 MCG TAB PO SCH (08:50)
[2016-12-01] MEDS: CLOPIDOGREL 75 MG TAB PO SCH (08:50)
[2016-12-01] MEDS: POTASSIUM CHLORIDE (SR) 10 MEQ TAB PO SCH (08:50)
[2016-12-01] MEDS: RANOLAZINE (SR) 500 MG TAB PO SCH (08:51)
[2016-12-01] MEDS: BACLOFEN 10 MG TAB PO SCH (08:51)
[2016-12-01] MEDS: LOSARTAN 50 MG TAB PO SCH (08:52)
[2016-12-01] MEDS: AMLODIPINE 5 MG TAB PO SCH (08:53)
[2016-12-01] MEDS: ISOSORBIDE MONONITRATE(SR)30 MG TAB PO SCH (08:53)
[2016-12-01] MEDS: FUROSEMIDE 40 MG TAB PO SCH (08:53)
[2016-12-01] MEDS: ENOXAPARIN 30 MG/0.3 ML SYG SC SCH (08:55)
[2016-12-01] MEDS: DOCUSATE SODIUM 100 MG CAP PO SCH (08:57)
[2016-12-01] MEDS: ASPIRIN (EC) 81 MG TAB PO SCH (08:57)
[2016-12-01] MEDS: DIGOXIN 0.125 MG TAB GTB SCH (12:19)
--- NOTE | 2016-12-01 14:20 | CONS ---
Date/Time of Note Date/Time of Note DATE: 12/01/16 TIME: 14:19 Assessment/Plan Assessment/Plan Additional Assessment/Plan 1.Angina/Chest pain-refractory to medical therapy. [facility] 2016 with all grafts occluded except KNOTT which feeds diffusely diseased LAD. Negative trop x 3 since admit - pt will go to [facility] for eval 12/06/2016 - stable now NO CHANGE 2.cad s/p cabg - CP - refractory to Rx 3.s/p PTCA/stent - no signs of new Mi now 4.cardiomyopathy with low EF - ICD in place - gentle diuresis 5.ICD - good fxn 6. HTN 7.DM 8.HL Consultation Date/Type/Reason Admit Date/Time Dec 01, 2016 at 11:47 Initial Consult Date 11/28/16 Type of Consultation: cardiology Referring Provider: KY ALEXANDER MD 24 HR Interval Summary Free Text/Dictation NO acute change - no ectopy on tele ROS: No fever, no chills, no nausea, no vomiting, no diarrhea/constipation No recent weight changes + chest pain, no PND, no orthopnea No dizziness, blurred vision No thirst, no heat or cold intolerance Exam/Review of Systems Vital Signs Vitals Vital Signs Date Time Temp Pulse Resp B/P Pulse Ox O2 Delivery O2 Flow Rate FiO2 12/01/16 12:44 60 12/01/16 11:15 2.0 12/01/16 11:08 98.1 19 118/57 98 12/01/16 08:15 Nasal Cannula 11/30/16 19:50 28 Intake and Output 11/30/16 11/30/16 12/01/16 15:00 23:00 07:00 Intake Total 500 ml 600 ml Output Total 3 ml Balance 497 ml 600 ml Exam General: WN/WD/NAD, AOx 3 HEENT: Unicetric/atraumatic/EOMI (follow commands) NECK: JVD elevated, no thyromegaly Lymph: no lymphadenopathy HEART: regular with no S3, II/ systolic murmur at apex LUNGS: Coarse sounds ABD: soft, NT, ND, +BS : Intact Neuro: non focal SKIN: chronic changes EXT: trace edema Results Result Diagram: 12/01/16 0510 12/01/16 0510 Results 24 hrs Laboratory Tests Test 11/30/16 17:47 11/30/16 20:26 12/01/16 01:45 12/01/16 05:10 Bedside Glucose 236 H 227 H 181 White Blood Count 5.5 Red Blood Count 3.94 L Hemoglobin 10.9 L Hematocrit 34.5 L Mean Corpuscular Volume 87.6 Mean Corpuscular Hemoglobin 27.7 L Mean Corpuscular Hemoglobin Concent 31.6 L Red Cell Distribution Width 14.5 Platelet Count 167 Mean Platelet Volume 10.6 H Neutrophils % 54.3 Lymphocytes % 31.2 Monocytes % 10.1 Eosinophils % 3.4 Basophils % 0.5 Nucleated Red Blood Cells % 0.0 Neutrophils # 3.0 Lymphocytes # 1.7 Monocytes # 0.6 Eosinophils # 0.2 Basophils # 0.0 Nucleated Red Blood Cells # 0.0 Sodium Level 142 Potassium Level 4.5 Chloride Level 103 Carbon Dioxide Level 24 Anion Gap 20 H Blood Urea Nitrogen 32 H Creatinine 0.83 Glucose Level 220 Hemoglobin A1c 7.8 H Calcium Level 9.4 Test 12/01/16 08:08 12/01/16 12:12 Bedside Glucose 196 114 Medications Medications Current Medications Acetaminophen (Tylenol Tab) 650 mg Q6H PRN PO PAIN LEVEL 1-3 OR FEVER; Start at 06:00 Nitroglycerin (Nitroglycerin (Sl Tab) 0.4 Mg) 1 tab Q5M PRN SL ANGINA; Start at 06:00 Alprazolam (Xanax) 0.5 mg Q8 PO Last administered on 12/01/16 06:01; Admin Dose 0.5 MG; Start 11/28/16 at 14:00 Amlodipine Besylate (Norvasc) 5 mg DAILY PO Last administered on 12/01/16 08:53 ; Admin Dose 5 MG; Start 11/29/16 at 09:00 Aspirin (Halfprin) 81 mg DAILY PO Last administered on 12/01/16 08:57; Admin Dose 81 MG; Start 11/28/16 at 12:30 Atorvastatin Calcium (Lipitor) 80 mg HS PO Last administered on 11/30/16 20:27 ; Admin Dose 80 MG; Start 11/28/16 at 21:00 Baclofen (Lioresal) 10 mg BID PO Last administered on 12/01/16 08:51; Admin Dose 10 MG; Start 11/28/16 at 21:00 Clopidogrel Bisulfate (plaVIX) 75 mg DAILY PO Last administered on 12/01/16 08: 50; Admin Dose 75 MG; Start 11/29/16 at 09:00 Cyanocobalamin (Vitamin B12) 1,000 mcg DAILY PO Last administered on 12/01/16 08:50; Admin Dose 1,000 MCG; Start 11/29/16 at 09:00 Docusate Sodium (Colace) 100 mg Q12 PO Last administered on 11/30/16 20:28; Admin Dose 100 MG; Start 11/28/16 at 21:00 Furosemide (Lasix) 40 mg DAILY PO Last administered on 12/01/16 08:53; Admin Dose 40 MG; Start 11/29/16 at 09:00 Gabapentin (Neurontin) 100 mg QID PO Last administered on 12/01/16 12:18; Admin Dose 100 MG; Start 11/28/16 at 13:00 Pantoprazole (Protonix Tab) 40 mg DAILY@06 PO Last administered on 12/01/16 06: 01; Admin Dose 40 MG; Start 11/29/16 at 06:00 Phenytoin (Dilantin) 100 mg HS PO Last administered on 11/30/16 20:29; Admin Dose 100 MG; Start 11/28/16 at 21:00 Potassium Chloride (Klor-Con 10) 10 meq DAILY PO Last administered on 12/01/16 08:50; Admin Dose 10 MEQ; Start 11/29/16 at 09:00 Ranolazine (Ranexa) 1,000 mg Q12 PO Last administered on 12/01/16 08:51; Admin Dose 1,000 MG; Start 11/28/16 at 12:30 Zolpidem Tartrate (Ambien) 10 mg HS PRN PO INSOMNIA Last administered on 23:34; Admin Dose 10 MG; Start 11/28/16 at 12:30 Miscellaneous Information 1 ea NOTE XX ; Start 11/28/16 at 13:00 Glucose (Glutose) 15 gm Q15M PRN PO DECREASED GLUCOSE; Start 11/28/16 at 13:00 Glucose (Glutose) 22.5 gm Q15M PRN PO DECREASED GLUCOSE; Start 11/28/16 at 13: 00 Dextrose (D50w Syringe) 25 ml Q15M PRN IV DECREASED GLUCOSE; Start 11/28/16 at 13:00 Dextrose (D50w Syringe) 50 ml Q15M PRN IV DECREASED GLUCOSE; Start 11/28/16 at 13:00 Glucagon (Glucagen) 1 mg Q15M PRN IM DECREASED GLUCOSE; Start 11/28/16 at 13:00 Glucose (Glutose) 15 gm Q15M PRN BUCCAL DECREASED GLUCOSE; Start 11/28/16 at 13 :00 Enoxaparin Sodium (Lovenox) 30 mg DAILY SC Last administered on 12/01/16 08:55 ; Admin Dose 30 MG; Start 11/29/16 at 09:00 Ondansetron HCl (Zofran Inj) 4 mg Q6H PRN IV NAUSEA AND/OR VOMITING; Start at 13:00 Carvedilol (Coreg) 12.5 mg BID PO Last administered on 12/01/16 08:57; Admin Dose 12.5 MG; Start 11/28/16 at 21:00 Diagnostic Test (Pha) (Accu-Chek) 1 ea 02 XX Last administered on 12/01/16 02: 00; Admin Dose 1 EA; Start 11/29/16 at 02:00 Digoxin (Digoxin) 0.125 mg DAILY@13 GTB Last administered on 12/01/16 12:19; Admin Dose 0.125 MG; Start 11/28/16 at 14:00 Losartan Potassium (Cozaar) 50 mg Q12 PO Last administered on 12/01/16 08:52; Admin Dose 50 MG; Start 11/28/16 at 21:00 Isosorbide Mononitrate (Imdur) 30 mg DAILY PO Last administered on 12/01/16 08: 53; Admin Dose 30 MG; Start 11/28/16 at 14:00 Ketorolac Tromethamine (Toradol) 15 mg Q6H PRN IV PAIN Last administered on 12/01 09:53; Admin Dose 15 MG; Start 11/28/16 at 20:30; Stop 12/01/16 at 20:29 Insulin Glargine (Lantus) 33 unit HS SC Last administered on 11/30/16 20:37; Admin Dose 33 UNIT; Start 11/30/16 at 21:00 MARTINEZ ODOM MD Dec 01, 2016 14:20
--- NOTE | 2016-12-01 14:35 | DS ---
Date/Time of Note Date/Time of Note DATE: 12/01/16 TIME: 14:34 Discharge Summary Admission/Discharge Info Admit Date/Time Dec 01, 2016 at 11:47 Discharge Date/Time Patient Condition: Stable Hx of Present Illness left chest pressure pain radiating to left arm HPI This is a 56-year-old male with history of hyperlipidemia,coronary artery disease , sp with multiple stents and with cardiomyopathy who is on the [facility] transplant list schedule on 12/06/2016. Patient states she is here for chest pain because he took 7-8 nitroglycerin sublingual for his chest pain and did not get better. Patient is admitted with substernal chest pressure that radiates to the left upper extremity, accompanied with shortness of breath and mild diaphoresis. He is refusing all pain medications because he was told by [facility] that if he takes any morphine or Dilaudid that he will not receive a heart transplant. During assessment, patient is comfortable on supplement oxygen, does not seem in any distress. Denies any headache, palpitations, dizziness, focal weakness or numbness. Denies any trauma/fall. ROS All systems reviewed and are negative except as per history of present illness. llergies Allergies: Coded Allergies: sumatriptan (Unverified Allergy, Unknown, 10/16/16) sumatriptan succinate (Unverified Allergy, Unknown, 10/16/16) venlafaxine HCl (Unverified Allergy, Unknown, 10/16/16) Hospital Course IMP: 1.Angina/Chest pain-refractory to medical therapy. [facility] 2017 with all grafts occluded except KNOTT which feeds diffusely diseased LAD. Negative trop x 3 since admit 2.cad s/p cabg 3.s/p PTCA/stent 4.cardiomyopathy with low EF 5.ICD 6. HTN 7.DM 8.HL Rec: -Tele -serial ecg's -Continue BB/ACEI/imdur/ranexa -Continue asa/plavix -Continue statin -Continue daily lasix diuresis -Ongoing eval for trasnplant at [facility] and will contact coordinator to better understand where he is in evaluation process and listing Home Meds Active Scripts Hydromorphone Hcl* (Dilaudid*) 2 Mg Tablet, 2 MG PO Q8H Y for PAIN LEVEL 6-10, # 14 TAB Prov:AGA BARNETT 10/24/16 Insulin Aspart* (Novolog Insulin Pen*) 100 Unit/Ml Soln, 10 UNIT SC WITH MEALS for 30 Days Prov:AGA BARNETT 10/24/16 Insulin Glargine* (Lantus*) 100 Unit/Ml Soln, 30 UNIT SC DAILY@08 for 30 Days Prov:AGA BARNETT 10/24/16 Docusate Sodium (Dok) 100 Mg Capsule, 100 MG PO Q12H Y for CONSTIPATION for 28 Days, CAP Prov:CARLOS MARTINEZ MD 09/22/16 Digoxin* (Digitek*) 125 Mcg Tablet, 0.125 MG PO DAILY@13 for 14 Days, TAB Prov:CARLOS MARTINEZ MD 09/22/16 Atorvastatin* (Atorvastatin*) 80 Mg Tablet, 80 MG PO HS for 14 Days, TAB Prov:CARLOS MARTINEZ MD 09/22/16 Losartan Potassium* (Cozaar*) 50 Mg Tab, 50 MG PO Q12, #60 TAB Prov:ALIZA CUENCA MD 12/22/14 Reported Medications Zolpidem Tartrate* (Zolpidem Tartrate*) 10 Mg Tablet, 10 MG PO QHS Y for INSOMNIA, #30 TAB 10/16/16 Potassium Chloride (Klor-Con) 10 Meq Tablet.sa, 10 MEQ PO DAILY, TAB.SA 10/16/16 Phenytoin* Sodium Extended (Dilantin*) 100 Mg Capsule, 300 MG PO HS, CAP 10/16/16 Nitroglycerin* (Nitrostat*) 0.4 Mg Tab.subl, 0.4 MG SL Q5MIN Y for CHEST PAIN, BOTTLE 10/16/16 Isosorbide Mononitrate* (Isosorbide Mononitrate*) 30 Mg Tab.er.24h, 30 MG PO QAM , TAB 10/16/16 Hydromorphone Hcl* (Hydromorphone Hcl*) 2 Mg Tablet, 4 MG PO Q6H Y for PAIN, TAB 10/16/16 Glimepiride* (Glimepiride*) 1 Mg Tablet, 1 MG PO WITH BREAKFAST, TAB 10/16/16 Gabapentin* (Gabapentin*) 100 Mg Capsule, 100 MG PO QID for 14 Days, #90 CAP 10/16/16 Furosemide* (Furosemide*) 40 Mg Tablet, 40 MG PO DAILY, TAB 10/16/16 Ranolazine* (Ranexa*) 1,000 Mg Tab.sr.12h, 1000 MG PO BID, TAB 09/18/16 Pantoprazole* (Pantoprazole*) 40 Mg Tablet.dr, 40 MG PO DAILY, TAB 09/18/16 Morphine Sulfate* (Ms Contin*) 15 Mg Tablet.sa, 2 MG PO Q6, TAB 09/18/16 Metformin Hcl* (Metformin Hcl*) 1,000 Mg Tablet, 1000 MG PO WITH BREAKFAST DINNE , #60 TAB 09/18/16 Aspirin* (Aspirin* Chew) 81 Mg Tab.chew, 81 MG PO DAILY, TAB.CHEW 07/16/16 Cyanocobalamin* (Vitamin B-12*) 1,000 Mcg Tablet.sa, 1000 MCG PO DAILY, TAB 06/16/16 Baclofen* (Baclofen*) 10 Mg Tablet, 10 MG PO BID, TAB 06/16/16 Alprazolam* (Alprazolam*) 0.5 Mg Tablet, 0.5 MG PO Q8 for ANXIETY, TAB 05/18/14 Clopidogrel Bisulfate (Clopidogrel) 75 Mg Tablet, 75 MG PO DAILY, TAB 04/26/14 Carvedilol* (Carvedilol*) 12.5 Mg Tablet, 12.5 MG PO BID, TAB 04/26/14 Amlodipine Besylate* (Amlodipine Besylate*) 5 Mg Tablet, 5 MG PO DAILY, TAB 04/26/14 Primary Care Provider Not On Staff Doctor Pending Labs Laboratory Tests Test 11/30/16 17:47 11/30/16 20:26 12/01/16 01:45 12/01/16 05:10 Bedside Glucose 236mg/dL (70-220) 227mg/dL (70-220) 181mg/dL (70-220) White Blood Count 5.510^3/ul (4.8-10.8) Red Blood Count 3.9410^6/ul (4.70-6.10) Hemoglobin 10.9g/dl (14.0-18.0) Hematocrit 34.5% (42.0-52.0) Mean Corpuscular Volume 87.6fl (82.0-101.0) Mean Corpuscular Hemoglobin 27.7pg (29.0-33.0) Mean Corpuscular Hemoglobin Concent 31.6g/dl (32.0-37.0) Red Cell Distribution Width 14.5% (11.5-14.5) Platelet Count 40530^3/UL (140-415) Mean Platelet Volume 10.6fl (7.4-10.4) Neutrophils % 54.3% (39.0-77.0) Lymphocytes % 31.2% (15.0-51.0) Monocytes % 10.1% (0.0-11.0) Eosinophils % 3.4% (0.0-7.0) Basophils % 0.5% (0.0-2.0) Nucleated Red Blood Cells % 0.0/100WBC (0.0-0.0) Neutrophils # 3.010^3/ul (1.6-7.5) Lymphocytes # 1.710^3/ul (0.8-2.9) Monocytes # 0.610^3/ul (0.3-0.9) Eosinophils # 0.210^3/ul (0.0-0.5) Basophils # 0.010^3/ul (0.0-0.1) Nucleated Red Blood Cells # 0.010^3/ul (0.0-0.0) Sodium Level 142mmol/L (135-144) Potassium Level 4.5mmol/L (3.5-5.1) Chloride Level 103mmol/L (97-110) Carbon Dioxide Level 24mmol/L (21-31) Anion Gap 20 (8-16) Blood Urea Nitrogen 32mg/dl (7-20) Creatinine 0.83mg/dl (0.61-1.24) Glucose Level 220mg/dl (70-220) Hemoglobin A1c 7.8% (0-5.9) Calcium Level 9.4mg/dl (8.4-10.2) Test 12/01/16 08:08 12/01/16 12:12 Bedside Glucose 196mg/dL (70-220) 114mg/dL (70-220) AGA BARNETT Dec 01, 2016 14:35
--- NOTE | 2016-12-01 14:41 | PDOCDIS ---
Discharge Instructions CONDITION Patient Condition: Stable HOME CARE INSTRUCTIONS: Special Diet: cardiac ACTIVITY: Activity Restrictions: Slowly Increase Activity Rest between Activity Avoid heavy lifting Bathing Restrictions: Sponge Bath FOLLOW UP/APPOINTMENTS Follow-up Plan Fu with Primary MD X 1 week Fu with Cardiology as recommended Call 911 or go to the nearest hospital if symptoms get worse. DC instructions reviewed with staff/ patient- patient verbalized understanding instructions. AGA BARNETT Dec 01, 2016 14:41
[2016-12-01] MEDS ORDERED: LOSA50TA2 PO (14:52)
[2016-12-01] MEDS ORDERED: LANT3I SC (14:52)
[2016-12-01] MEDS ORDERED: NOVO3I SC (14:52)
[2016-12-01] MEDS ORDERED: ISOS30TA5 PO (14:52)
[2016-12-01] MEDS ORDERED: NIT4 SL (14:52)
[2016-12-01] MEDS ORDERED: DIGO125T GTB (14:52)
--- NOTE | 2016-12-02 20:55 | RADRPT ---
Vent Rate: 60 bpm RR Interval: 0 msec ME Interval: 170 msec QRS Duration: 88 msec QT Interval: 472 msec QTC Interval: 472 msec P-R-T [place]: 40 - -59 - 0 degrees Electronic atrial pacemaker Left axis deviation Septal infarct , age undetermined ST amp; T wave abnormality, consider inferolateral ischemia Abnormal ECG Electronically Signed By: Jacques Higuera [id number]
== END 2016-12-01 17:47 | disposition home or self-care (01) | DRG 302 ==
LOC: E/R 03:16 → TEL 05:31 → OBSVTOIN 12-01 11:47
PROVIDERS: ADMIT Internal Medicine; ATTEND Internal Medicine
DX: I25.118 Atherosclerotic heart disease of native coronary artery with other forms of angina pectoris (principal); I50.43 Acute on chronic combined systolic (congestive) and diastolic (congestive) heart failure; Z76.82 Awaiting organ transplant status; I42.9 Cardiomyopathy, unspecified; I11.0 Hypertensive heart disease with heart failure; Z95.1 Presence of aortocoronary bypass graft; Z79.82 Long term (current) use of aspirin; Z79.02 Long term (current) use of antithrombotics/antiplatelets; E78.5 Hyperlipidemia, unspecified; E11.65 Type 2 diabetes mellitus with hyperglycemia; I65.29 Occlusion and stenosis of unspecified carotid artery; G40.909 Epilepsy, unspecified, not intractable, without status epilepticus; Z95.0 Presence of cardiac pacemaker; Z95.5 Presence of coronary angioplasty implant and graft; Z95.810 Presence of automatic (implantable) cardiac defibrillator; I25.708 Atherosclerosis of coronary artery bypass graft(s), unspecified, with other forms of angina pectoris
CPT/HCPCS: 36415; 71010; 80048; 80053; 80061; 80185; 82550; 82553; 82962; 83036; 83880; 84443; 84484; 85025; 85610; 85730; 93005; 94640; 94664; G0378; C9113; J1650; J1815; J1885; J1940; J2270; J2405

== ENCOUNTER 2017-02-27 01:18 | Inpatient (IN) | payer MEDICAID ==
[~2017-02-27] VITALS: Ht 167.6 cm; Wt 88.4 kg
[2017-02-27] VITALS (57 sets, daily range): BP systolic 105–153; BP diastolic 47–87; PULSE 59–69; RESP 8–25; TEMP 99.5; Ht 167.6 cm; Wt 88.4 kg
[~2017-02-27 01:18] MED LIST changes: +DIGO125T GTB; -HYDR2TAB15 PO; +HYDR2TAB36 PO
[2017-02-27] MEDS ORDERED: NITROGLYCERIN (SL) 0.4 MG TAB SL ONE (01:30)
[2017-02-27] MEDS ORDERED: ASPIRIN 81 MG TAB PO ONE (01:30)
[2017-02-27] MEDS ORDERED: FUROSEMIDE 40 MG INJ IV ONE (01:30)
[2017-02-27] MEDS ORDERED: ALBUTEROL 0.083% (NEB) 2.5 MG/3 ML AMP HHN ONE (01:45)
[2017-02-27] MEDS ORDERED: IPRATROPIUM (NEB) 0.5 MG/2.5 ML AMP HHN ONE (02:00)
--- NOTE | 2017-02-27 02:02 | RADRPT ---
PROCEDURE: XR Chest. CLINICAL INDICATION: Abdominal Pain TECHNIQUE: Single frontal view of the chest COMPARISON: 08/15/2016 FINDINGS: New right central venous line in place with tip at the superior vena cava right atrial junction. Left anterior chest wall dual chamber cardiac pacer is without significant change. Cardiac pacing un it obscures the left lung base. Cardiomegaly. Atherosclerotic calcifications in the thoracic aorta. Pulmonary vascular ingestion and moderate bilateral patchy air space disease, greater at the lung bases. Evaluation of lung apices i s limited secondary to overlying soft tissues and osseous structures of the chin. No signs of pleura l fluid or pneumothorax are seen. The osseous structures and soft tissues are unremarkable. IMPRESSION: 1. New right central venous line in place with tip at the superior vena cava right atrial junction. 2. New moderate failure. RPTAT: [facility] Physician Andrei Date Time Electronically viewed and signed by Physician Andrei on 02/27/2017 02:02 RS/
--- NOTE | 2017-02-27 03:09 | ERA ---
ER Documentation Chief Complaint Date/Time DATE: 02/27/17 TIME: 03:01 Chief Complaint bib ra 81 from for sob since earlier today and cp, HPI 57-year-old man brought in by EMS from home for shortness of breath. Patient has severe coronary artery disease and is status post coronary artery bypass graft awaiting heart transplant. He complains of lower extremity swelling. No chest pain no fevers or chills, no cough, no abdominal pain. Patient was placed on CPAP and transported here by EMS no medications were given en route. Patient is former smoker. ROS All systems reviewed and are negative except as per history of present illness. Medications Home Meds Active Scripts Nitroglycerin* (Nitrostat*) 0.4 Mg Tab.subl, 1 TAB SL Q5M Y for ANGINA for 30 Days Prov:AGA BARNETT 12/01/16 Losartan Potassium* (Cozaar*) 50 Mg Tablet, 50 MG PO Q12 for 30 Days, TAB Prov:AGA BARNETT 12/01/16 Isosorbide Mononitrate* (Isosorbide Mononitrate*) 30 Mg Tab.er.24h, 30 MG PO DAILY for 30 Days Prov:AGA BARNETT 12/01/16 Insulin Glargine* (Lantus*) 100 Unit/Ml Soln, 33 UNIT SC HS for 30 Days Prov:AGA BARNETT 12/01/16 Insulin Aspart* (Novolog Insulin Pen*) 100 Unit/Ml Soln, 11 UNIT SC WITH MEALS for 30 Days Prov:AGA BARNETT 12/01/16 Digoxin* (Digitek*) 125 Mcg Tablet, 0.125 MG GTB DAILY@13 for 30 Days, TAB Prov:AGA BARNETT 12/01/16 Hydromorphone Hcl* (Dilaudid*) 2 Mg Tablet, 2 MG PO Q8H Y for PAIN LEVEL 6-10, # 14 TAB Prov:AGA BARNETT 10/24/16 Insulin Aspart* (Novolog Insulin Pen*) 100 Unit/Ml Soln, 10 UNIT SC WITH MEALS for 30 Days Prov:AGA BARNETT 10/24/16 Insulin Glargine* (Lantus*) 100 Unit/Ml Soln, 30 UNIT SC DAILY@08 for 30 Days Prov:AGA BARNETT 10/24/16 Docusate Sodium (Dok) 100 Mg Capsule, 100 MG PO Q12H Y for CONSTIPATION for 28 Days, CAP Prov:CARLOS MARTINEZ MD 09/22/16 Atorvastatin* (Atorvastatin*) 80 Mg Tablet, 80 MG PO HS for 14 Days, TAB Prov:CARLOS MARTINEZ MD 09/22/16 Reported Medications Zolpidem Tartrate* (Zolpidem Tartrate*) 10 Mg Tablet, 10 MG PO QHS Y for INSOMNIA, #30 TAB 10/16/16 Potassium Chloride (Klor-Con) 10 Meq Tablet.sa, 10 MEQ PO DAILY, TAB.SA 10/16/16 Phenytoin* Sodium Extended (Dilantin*) 100 Mg Capsule, 300 MG PO HS, CAP 10/16/16 Nitroglycerin* (Nitrostat*) 0.4 Mg Tab.subl, 0.4 MG SL Q5MIN Y for CHEST PAIN, BOTTLE 10/16/16 Gabapentin* (Gabapentin*) 100 Mg Capsule, 100 MG PO QID for 14 Days, #90 CAP 10/16/16 Furosemide* (Furosemide*) 40 Mg Tablet, 40 MG PO DAILY, TAB 10/16/16 Ranolazine* (Ranexa*) 1,000 Mg Tab.sr.12h, 1000 MG PO BID, TAB 09/18/16 Pantoprazole* (Pantoprazole*) 40 Mg Tablet.dr, 40 MG PO DAILY, TAB 09/18/16 Metformin Hcl* (Metformin Hcl*) 1,000 Mg Tablet, 1000 MG PO WITH BREAKFAST DINNE , #60 TAB 09/18/16 Aspirin* (Aspirin* Chew) 81 Mg Tab.chew, 81 MG PO DAILY, TAB.CHEW 07/16/16 Cyanocobalamin* (Vitamin B-12*) 1,000 Mcg Tablet.sa, 1000 MCG PO DAILY, TAB 06/16/16 Baclofen* (Baclofen*) 10 Mg Tablet, 10 MG PO BID, TAB 06/16/16 Alprazolam* (Alprazolam*) 0.5 Mg Tablet, 0.5 MG PO Q8 for ANXIETY, TAB 05/18/14 Clopidogrel Bisulfate (Clopidogrel) 75 Mg Tablet, 75 MG PO DAILY, TAB 04/26/14 Carvedilol* (Carvedilol*) 12.5 Mg Tablet, 25 MG PO BID, TAB 04/26/14 Amlodipine Besylate* (Amlodipine Besylate*) 5 Mg Tablet, 5 MG PO DAILY, TAB 04/26/14 Discontinued Reported Medications Isosorbide Mononitrate* (Isosorbide Mononitrate*) 30 Mg Tab.er.24h, 30 MG PO QAM , TAB 10/16/16 Hydromorphone Hcl* (Hydromorphone Hcl*) 2 Mg Tablet, 4 MG PO Q6H Y for PAIN, TAB 10/16/16 Glimepiride* (Glimepiride*) 1 Mg Tablet, 1 MG PO WITH BREAKFAST, TAB 10/16/16 Morphine Sulfate* (Ms Contin*) 15 Mg Tablet.sa, 2 MG PO Q6, TAB 09/18/16 Discontinued Scripts Digoxin* (Digitek*) 125 Mcg Tablet, 0.125 MG PO DAILY@13 for 14 Days, TAB Prov:CARLOS MARTINEZ MD 09/22/16 Losartan Potassium* (Cozaar*) 50 Mg Tab, 50 MG PO Q12, #60 TAB Prov:ALIZA CUENCA MD 12/22/14 Allergies Allergies: Coded Allergies: sumatriptan (Unverified Allergy, Unknown, 02/27/17) sumatriptan succinate (Unverified Allergy, Unknown, 02/27/17) venlafaxine HCl (Unverified Allergy, Unknown, 02/27/17) PMhx/Soc Hypertension, dyslipidemia, depression anxiety, coronary artery disease, coronary artery bypass graft status post awaiting heart transplant, peripheral vascular disease, obesity, diabetes mellitus, CHF History of Surgery: Yes (OPEN HEART SX 2006) Anesthesia Reaction: No Hx Neurological Disorder: Yes (CVA 2008) Hx Respiratory Disorders: No Hx Cardiac Disorders: Yes (CHF HTN) Hx Psychiatric Problems: Yes (DEPRESSION) Hx Miscellaneous Medical Probl: Yes (SEROTONIN SYNDROME) Hx Alcohol Use: No Hx Substance Use: No Hx Tobacco Use: No Smoking Status: Never smoker FmHx Family History: No diabetes Physical Exam Vitals Vital Signs Date Time Temp Pulse Resp B/P Pulse Ox O2 Delivery O2 Flow Rate FiO2 02/27/17 03:33 99.5 80 18 135/71 100 Room Air 02/27/17 03:12 66 100 60 02/27/17 02:00 77 98 60 02/27/17 01:40 Venti Mask 02/27/17 01:22 99.5 79 19 146/74 89 02/27/17 01:22 99.5 76 19 146/74 89 Room Air Physical Exam GENERAL: Well-developed, dyspneic, afebrile HEENT: Moist mucous membranes, pink conjunctiva, no cervical spine tenderness or step-off deformities, no goiter, no jaundice or icterus, extraocular movements intact without pain. No submandibular induration, and no pharyngeal erythema NEURO: Alert and oriented 3, cranial nerves II through XII intact bilaterally, pupils equal round reactive to light, no focal deficits or facial asymmetry, sensation intact distally Strength 5/5 in upper and lower extremities bilaterally CARDIAC: Regular rate and rhythm, no murmurs rubs or gallops LUNGS: Poor breath sounds bilaterally, crackles, no stridor ABDOMEN: Soft nontender, no guarding, no rigidity, no rebound, no psoas sign no obturator sign. SKIN: Warm and dry to touch, no abrasions, contusions, or hematomas, no lacerations, no ecchymosis, no target lesions, and without ulcers EXTREMITIES: No clubbing cyanosis, 2+ pitting edema in the lower extremities bilaterally, calves are bilaterally symmetrical, no Homans sign, no popliteal cord sign. Distal pulses equal and bilateral, PICC line in the right upper extremity PSYCH: Normal affect without agitation or irritability Result Diagram: 02/27/17 0259 02/27/17 0259 Results 24 hrs Laboratory Tests Test 02/27/17 01:36 02/27/17 02:15 02/27/17 02:59 Bedside Glucose 131mg/dL Blood Gas Specimen Source Blood arterial Arterial Blood Date Drawn 02/27/2017 3:20:08 AM Arterial Blood pH (Temp corrected) 7.466 Arterial Blood pCO2 (Temp correct) 31.8mmhg Arterial Blood pO2 (Temp corrected) 181.3mmHG Arterial Blood HCO3 22.4mmol/L Arterial Blood Base Excess -0.6mmol/L Arterial Blood Oxygen Saturation 98.9mmHG Glenn Test ACCEPTAB Arterial Blood Gas Puncture Site Right Radial Arterial Blood Carboxyhemoglobin 0.1% Arterial Blood Methemoglobin 0.3% Blood Gas A-a O2 Differential 211.5mmHg Oxyhemoglobin Percent 98.5% Total Hemoglobin 12.4g/dl Blood Gas Temperature 37.0C Blood Gas Respiration Rate 16.0 Blood Gas Actual Respiration Rate 26 Blood Gas Modality MASK - BIPAP FiO2 60.0% Blood Gas Pressure Support 10 Blood Gas IPAP/EPAP Ratio 15/5 Blood Gas Notified Whom UP Blood Gas Notified Time 02/27/2017 3:36:06 AM White Blood Count 11.110^3/ul Red Blood Count 4.2410^6/ul Hemoglobin 11.9g/dl Hematocrit 36.5% Mean Corpuscular Volume 86.1fl Mean Corpuscular Hemoglobin 28.1pg Mean Corpuscular Hemoglobin Concent 32.6g/dl Red Cell Distribution Width 17.5% Platelet Count 39244^3/UL Mean Platelet Volume 10.1fl Neutrophils % 73.0% Lymphocytes % 16.2% Monocytes % 9.2% Eosinophils % 0.9% Basophils % 0.5% Nucleated Red Blood Cells % 0.0/100WBC Neutrophils # 8.110^3/ul Lymphocytes # 1.810^3/ul Monocytes # 1.010^3/ul Eosinophils # 0.110^3/ul Basophils # 0.110^3/ul Nucleated Red Blood Cells # 0.010^3/ul Prothrombin Time 13.5Sec Prothrombin Time Ratio 1.1 INR International Normalized Ratio 1.03 Sodium Level 141mmol/L Potassium Level 3.5mmol/L Chloride Level 104mmol/L Carbon Dioxide Level 25mmol/L Anion Gap 16 Blood Urea Nitrogen 17mg/dl Creatinine 0.79mg/dl Glucose Level 161mg/dl Calcium Level 9.4mg/dl Total Bilirubin 0.6mg/dl Direct Bilirubin 0.00mg/dl Indirect Bilirubin 0.6mg/dl Aspartate Amino Transf (AST/SGOT) 21IU/L Alanine Aminotransferase (ALT/SGPT) 38IU/L Alkaline Phosphatase 87IU/L Troponin I 0.095ng/ml Total Protein 8.4g/dl Albumin 4.7g/dl Globulin 3.70g/dl Albumin/Globulin Ratio 1.27 Lipase 38U/L Current Medications Medications (Trade) Dose Ordered Sig/Cecil Route PRN Reason Start Time Stop Time Status Last Admin Dose Admin Aspirin (Aspirin) 324 mg ONCE ONCE PO 02/27/17 01:30 02/27/17 01:31 DC 02/27/17 01:32 Nitroglycerin (Nitroglycerin (Sl Tab) 0.4 Mg) 3 tab ONCE ONCE SL 02/27/17 01:30 02/27/17 01:31 DC 02/27/17 01:31 Furosemide (Lasix) 80 mg ONCE ONCE IV 02/27/17 01:30 02/27/17 01:31 DC 02/27/17 01:34 Albuterol (Proventil 0.083% (Neb)) 15 mg ONCE ONCE HHN 02/27/17 01:45 02/27/17 01:49 DC 02/27/17 02:00 Ipratropium [place] (Atrovent 0.02% (Neb)) 1 mg ONCE ONCE HHN 02/27/17 02:00 02/27/17 02:01 DC 02/27/17 01:59 Procedures/MDM IV line was established patient was placed on cardiac technologist rhythm strip revealed a sinus rhythm at about 80 bpm with upright P and T waves. Patient was afebrile. We placed the patient immediately on BiPAP therapy. EKG performed, read by me revealed a normal sinus rhythm 83 bpm, left axis deviation, narrow QRS complex, no concerning ST elevations or depressions noted. One view chest x-ray performed, read by me revealed cardiomegaly and bilateral pulmonary vascular congestion, pacemaker in the left chest, no acute infiltrates , no pneumothorax. I administered furosemide 80 mg IV 1, nitroglycerin 0.4 mg sublingual, aspirin 324 mg p.o. for cardioprotective measures, albuterol 10 mg via nebulizer and ipratropium 1 mg via nebulizer. Critical Care: Time: 60 minutes, this was time separate from other billable procedures. Treatments/Evaluations: Close monitoring and treatment of unstable vital signs, cardiorespiratory, and neurologic status, while maintaining tight balance of fluid, respiratory, and cardiac interventions. CBC and electrolytes are normal, liver function tests normal, troponin negative , BNP elevated. ABG performed revealed a pH of 7.47, PCO2 32, PO2 181, respiratory alkalosis. Patient admitted to telemetry setting continued medical management cardiology consultation. Departure Diagnosis: Primary Impression: Acute respiratory failure Qualified Code: J96.01 - Acute respiratory failure with hypoxia and hypercapnia Additional Impressions: CHF (congestive heart failure) Qualified Code: I50.21 - Acute systolic congestive heart failure Hypertensive emergency Condition: Serious MARTINE OCHOA MD Feb 27, 2017 03:09
[2017-02-27 03:26] LABS: BASOPHIL # 0.1 10^3/ul (0.0-0.1); BASOPHILS % 0.5 % (0.0-2.0); EOSINOPHILS # 0.1 10^3/ul (0.0-0.5); EOSINOPHILS % 0.9 % (0.0-7.0); HEMATOCRIT 36.5 % (42.0-52.0); HEMOGLOBIN 11.9 g/dl (14.0-18.0); INR 1.03; LYMPHOCYTES # 1.8 10^3/ul (0.8-2.9); LYMPHOCYTES % 16.2 % (15.0-51.0); MEAN CORPUSCULAR HEMOGLOBIN 28.1 pg (29.0-33.0); MEAN CORPUSCULAR HGB CONC 32.6 g/dl (32.0-37.0); MEAN CORPUSCULAR VOLUME 86.1 fl (82.0-101.0); MEAN PLATELET VOLUME 10.1 fl (7.4-10.4); MONOCYTES % 9.2 % (0.0-11.0); NEUTROPHIL # 8.1 10^3/ul (1.6-7.5); PLATELET COUNT 188 10^3/UL (140-415); PROTIME 13.5 Sec (12.2-14.2); PT RATIO 1.1; RED BLOOD COUNT 4.24 10^6/ul (4.70-6.10); RED CELL DISTRIBUTION WIDTH 17.5 % (11.5-14.5); WHITE BLOOD COUNT 11.1 10^3/ul (4.8-10.8)
[2017-02-27 03:31] LABS: ALBUMIN 4.7 g/dl (3.3-4.9); ALBUMIN/GLOBULIN RATIO 1.27; BILIRUBIN,INDIRECT 0.6 mg/dl (0-1.1); BILIRUBIN,TOTAL 0.6 mg/dl (0.2-1.3); CALCIUM 9.4 mg/dl (8.4-10.2); CREATININE 0.79 mg/dl (0.61-1.24); POTASSIUM 3.5 mmol/L (3.5-5.1); TOTAL PROTEIN 8.4 g/dl (6.1-8.1)
[2017-02-27 03:36] LABS: AADO2 Arterial 211.5 mmHg (7.0-24.0); Allen Test ACCEPTAB; Arterial Base Excess -0.6 mmol/L (-3.0-3); Arterial COHb 0.1 % (0.0-3.0); Arterial Fraction of Oxyhgb 98.5 % (93.0-99.0); Arterial HCO3 22.4 mmol/L (22.0-26.0); Arterial MetHb 0.3 % (0.0-1.5); Arterial Total Hemglobin 12.4 g/dl (12.0-18.0); Blood Gas IEPAP 15/5; Blood Gas PS 10; MODE MASK - BIPAP
[2017-02-27 03:42] LABS: TROPONIN-I 0.095 ng/ml (0.00-0.12)
[2017-02-27] MEDS ORDERED: morphine 2 MG INJ IV PRN (07:00)
[2017-02-27] MEDS ORDERED: ENALAPRILAT IVPB SCH (09:00)
[2017-02-27] MEDS ORDERED: SOD CHLORIDE 0.9% IVPB SCH (09:00)
[2017-02-27] MEDS: FUROSEMIDE 40 MG INJ IV SCH (09:41)
[2017-02-27] MEDS: ENOXAPARIN 40 MG/0.4 ML SYG SC SCH (09:43)
--- NOTE | 2017-02-27 10:58 | CONS ---
DATE OF ADMISSION: 02/27/2017 DATE OF CONSULTATION: 02/27/2017 HISTORY OF PRESENT ILLNESS: This is a 57-year-old gentleman with advanced systolic diastolic heart failure, status post coronary artery bypass graft and percutaneous intervention pending heart transplant at [facility] admitted with chest pain and shortness of breath found to be in pulmonary edema with hypoxemic respiratory failure. No nausea. No vomiting. Mild chest pain but no palpitations. PAST MEDICAL HISTORY: As above. MEDICATION: Per chart. ALLERGIES: NONE. HE IS AN EX-SMOKER. NO ALCOHOL. NO HISTORY OF DRUG USE. FAMILY HISTORY: Noncontributory. REVIEW OF SYSTEMS: A 12-point review of systems negative other than that mentioned above. ALLERGIES: TO SOME SUMATRIPTAN, VENLAFAXINE. PHYSICAL EXAMINATION: GENERAL: Well-nourished, well-developed gentleman, comfortable at rest, no acute distress. VITAL SIGNS: Currently afebrile. Pulse is 60, blood pressure 134/70, O2 sat 96 percent on FiO2 of 40 percent on BiPAP. HEENT: Dry mucous membranes. Pupils equal and react to light. CARDIAC: S1, S2. No added sounds or murmurs. CHEST: Diminished air entry bilaterally. ABDOMEN: Soft, nontender. No guarding or rebound. EXTREMITIES: No edema. NEUROLOGIC: No focal deficits. LABORATORY AND IMAGING: White count 11.1, hemoglobin 11.9, platelets of 188, BUN 17, creatinine 0.79, BNP 2810. EKG shows no acute ischemic changes. First troponin and 2nd troponin within normal limits. IMPRESSION: 1. Acute pulmonary edema with hypoxemic respiratory failure. 2. Severe systolic and diastolic dysfunction on a patient who is pending heart transplant. 3. Chronic milrinone infusion via continues pump. 4. Prior history of tobacco use. PLAN: 1. Continue milrinone. 2. Continue diuretics. 3. Cardiology evaluation recommendation for temporary noninvasive positive pressure ventilation. 4. Deep vein thrombosis and gastrointestinal prophylaxis. 5. [facility] for further management by Heart Transplant Team. Dictated By: Moise Lambert MD /analilia/ /Document#: [id number]
--- NOTE | 2017-02-27 11:40 | CONS ---
Date/Time of Note Date/Time of Note DATE: 02/27/17 TIME: 11:39 Assessment/Plan Assessment/Plan Additional Assessment/Plan [facility] - flush pulm edema - con't diuresis - micheline contact [facility] for OHT transfer. Full note dictated # [id number] Consultation Date/Type/Reason Admit Date/Time Feb 27, 2017 at 03:48 Initial Consult Date Exam/Review of Systems Vital Signs Vitals Vital Signs Date Time Temp Pulse Resp B/P Pulse Ox O2 Delivery O2 Flow Rate FiO2 02/27/17 09:45 62 23 134/74 98 02/27/17 08:45 BIPAP 02/27/17 08:33 98.1 02/27/17 07:40 40 Results Result Diagram: 02/27/17 0259 02/27/17 0259 Results 24 hrs Laboratory Tests Test 02/27/17 01:36 02/27/17 02:15 02/27/17 02:59 02/27/17 07:49 Bedside Glucose 131 Blood Gas Specimen Source Blood arterial Arterial Blood Date Drawn 02/27/2017 3:20:08 AM Arterial Blood pH (Temp corrected) 7.466 H Arterial Blood pCO2 (Temp correct) 31.8 L Arterial Blood pO2 (Temp corrected) 181.3 H Arterial Blood HCO3 22.4 Arterial Blood Base Excess -0.6 Arterial Blood Oxygen Saturation 98.9 H Glenn Test ACCEPTAB Arterial Blood Gas Puncture Site Right Radial Arterial Blood Carboxyhemoglobin 0.1 Arterial Blood Methemoglobin 0.3 Blood Gas A-a O2 Differential 211.5 H Oxyhemoglobin Percent 98.5 Total Hemoglobin 12.4 Blood Gas Temperature 37.0 Blood Gas Respiration Rate 16.0 Blood Gas Actual Respiration Rate 26 Blood Gas Modality MASK - BIPAP FiO2 60.0 Blood Gas Pressure Support 10 Blood Gas IPAP/EPAP Ratio 15/5 Blood Gas Notified Whom UP Blood Gas Notified Time 02/27/2017 3:36:06 AM White Blood Count 11.1 #H Red Blood Count 4.24 L Hemoglobin 11.9 L Hematocrit 36.5 L Mean Corpuscular Volume 86.1 Mean Corpuscular Hemoglobin 28.1 L Mean Corpuscular Hemoglobin Concent 32.6 Red Cell Distribution Width 17.5 #H Platelet Count 188 Mean Platelet Volume 10.1 Neutrophils % 73.0 Lymphocytes % 16.2 Monocytes % 9.2 Eosinophils % 0.9 Basophils % 0.5 Nucleated Red Blood Cells % 0.0 Neutrophils # 8.1 H Lymphocytes # 1.8 Monocytes # 1.0 H Eosinophils # 0.1 Basophils # 0.1 Nucleated Red Blood Cells # 0.0 Prothrombin Time 13.5 Prothrombin Time Ratio 1.1 INR International Normalized Ratio 1.03 Sodium Level 141 Potassium Level 3.5 Chloride Level 104 Carbon Dioxide Level 25 Anion Gap 16 Blood Urea Nitrogen 17 Creatinine 0.79 Glucose Level 161 Calcium Level 9.4 Total Bilirubin 0.6 Direct Bilirubin 0.00 Indirect Bilirubin 0.6 Aspartate Amino Transf (AST/SGOT) 21 Alanine Aminotransferase (ALT/SGPT) 38 Alkaline Phosphatase 87 Troponin I 0.095 0.114 Total Protein 8.4 H Albumin 4.7 Globulin 3.70 H Albumin/Globulin Ratio 1.27 Lipase 38 B-Type Natriuretic Peptide 2810 H Medications Medications Current Medications Furosemide 40 mg 40 mg DAILY IV Last administered on 02/27/17 09:41; Admin Dose 40 MG; Start 02/27/17 at 09:00 Enalaprilat/ Sodium Chloride (Vasotec Iv/NS) 52 ml @ 100 mls/hr BID IVPB ; Start 02/27/17 at 09:00 Nitroglycerin (Nitroglycerin 2% Oint) 1 inch Q8 TD ; Start 02/27/17 at 14:00 Enoxaparin Sodium (Lovenox) 40 mg DAILY SC Last administered on 02/27/17 09:43 ; Admin Dose 40 MG; Start 02/27/17 at 09:00 Morphine Sulfate (morphine) 2 mg Q4H PRN IV pain; Start 02/27/17 at 07:00 MARTINEZ ODOM MD Feb 27, 2017 11:40
--- NOTE | 2017-02-27 12:11 | HP ---
Date/Time of Note Date/Time of Note DATE: 02/27/17 TIME: 10:16 Assessment/Plan VTE Prophylaxis VTE Prophylaxis Intervention: LMWH Lines/Catheters IV Catheter Type (from Nrsg): PICC Line Assessment/Plan Assessment/Plan -Acute leukocytosis sec to stress reaction - monitor CBC -Acute respiratory failure with hypoxia and hypercapnia - per pulmonary -CHF (congestive heart failure) - cardiology consult- dr Olsen notified -Severe systolic and diastolic dysfunction on a patient awaiting heart transplant. - per cardio - Recommend transfer to [facility] for further management by Heart Transplant Team- bhavani medical case worker - Chronic milrinone infusion via continues pump. -Hypertensive emergency - Former Tobaccoism PLAN: -Admit to ICU - Continue milrinone. - Continue diuretics. - See admission orders - Lovenox for DVT prophylaxis - Plan to transfer to [facility] for high level of care due to his heart transplant , Plan of care bhavani Wright/staff/casework manager HPI/ROS Admit Date/Time Admit Date/Time Feb 27, 2017 at 03:48 Hx of Present Illness This is a 57-year-old man, with advanced systolic diastolic heart failure, severe coronary artery disease and is status post coronary artery bypass graft and percutaneous intervention awaiting for heart transplant at [facility] is admitted for shortness of breath , chest pain, and complains of lower extremity swelling. Denies any palpitations, fevers or chills, cough, abdominal pain, nausea, vomiting. Patient is former smoker. Patient was admitted to ICU for further evaluation and management. Patient is admitted with Milrirone med Pump and a PICC line. During assessment-patient is awake, open eyes, responsive to name only. Plan of care BHAVANI Wright . ROS All systems reviewed and are negative except as per history of present illness. Allergies Allergies: Coded Allergies: sumatriptan (Unverified Allergy, Unknown, 02/27/17) sumatriptan succinate (Unverified Allergy, Unknown, 02/27/17) venlafaxine HCl (Unverified Allergy, Unknown, 02/27/17) PMH/Family/Social Past Surgical History PMhx/Soc Hypertension, dyslipidemia, depression anxiety, coronary artery disease, coronary artery bypass graft status post awaiting heart transplant, peripheral vascular disease, obesity, diabetes mellitus, CHF History of Surgery: Yes (OPEN HEART SX 2006) Anesthesia Reaction: No Hx Neurological Disorder: Yes (CVA 2008) Hx Respiratory Disorders: No Hx Cardiac Disorders: Yes (CHF HTN) Hx Psychiatric Problems: Yes (DEPRESSION) Hx Miscellaneous Medical Probl: Yes (SEROTONIN SYNDROME) Hx Alcohol Use: No Hx Substance Use: No Hx Tobacco Use: No Smoking Status: Never smoker FmHx Family History: No diabetes Past Surgical Hx: angioplasty, coronary bypass surgery Social History Smoking Status: Former smoker Exam/Review of Systems Vital Signs Vitals Vital Signs Date Time Temp Pulse Resp B/P Pulse Ox O2 Delivery O2 Flow Rate FiO2 02/27/17 09:45 62 23 134/74 98 02/27/17 08:45 BIPAP 02/27/17 08:33 98.1 02/27/17 07:40 40 Exam Constitutional: alert, frail, oriented (oriented to name only), well developed Psych: nl mood/affect Respiratory: diminished breath sounds Cardiovascular: nl pulses, other (sr , pacing HR 60), regular rate and rhythm Gastrointestinal: non-tender, soft Musculoskeletal: nl extremities to inspection Extremities: normal pulses Labs Result Diagram: 02/27/17 0259 02/27/17 0259 Medications Medications Current Medications Furosemide 40 mg 40 mg DAILY IV Last administered on 02/27/17 09:41; Admin Dose 40 MG; Start 02/27/17 at 09:00 Enalaprilat/ Sodium Chloride (Vasotec Iv/NS) 52 ml @ 100 mls/hr BID IVPB ; Start 02/27/17 at 09:00 Nitroglycerin (Nitroglycerin 2% Oint) 1 inch Q8 TD ; Start 02/27/17 at 14:00 Enoxaparin Sodium (Lovenox) 40 mg DAILY SC Last administered on 02/27/17 09:43 ; Admin Dose 40 MG; Start 02/27/17 at 09:00 Morphine Sulfate (morphine) 2 mg Q4H PRN IV pain; Start 02/27/17 at 07:00 Procedures Procedures 1. EKG performed, read by me revealed a normal sinus rhythm 83 bpm, left axis deviation, narrow QRS complex, no concerning ST elevations or depressions noted. 2. Chest x-ray performed, read by me revealed cardiomegaly and bilateral pulmonary vascular congestion, pacemaker in the left chest, no acute infiltrates , no pneumothorax. 3. CBC and electrolytes are normal, liver function tests normal, troponin negative, BNP elevated. ABG performed revealed a pH of 7.47, PCO2 32, PO2 181, respiratory alkalosis. AGA BARNETT Feb 27, 2017 10:35
[2017-02-27] MEDS ORDERED: PANTOPRAZOLE 40 MG INJ IV ONE (12:30)
--- NOTE | 2017-02-27 13:12 | RADRPT ---
PROCEDURE: US Lower extremity Venous. CLINICAL INDICATION: Bilateral lower extremity edema TECHNIQUE: Multiple sonographic images of the bilateral lower extremity deep venous system was obt ained utilizing grayscale, color-flow, compressive sonography and doppler imaging with augmentation. The images were reviewed on a PACS workstation. COMPARISON: None. FINDINGS: There is normal compressibility and flow within the bilateral common femoral, femoral , posterior ti bial and popliteal veins. RPTAT: AA IMPRESSION: No sonographic evidence for deep venous thrombosis. .Dino Miguel MD, MD Date Time Electronically viewed and signed by .Dino Miguel MD, on 02/27/2017 13:12 .S/
[2017-02-27] MEDS ORDERED: NITROGLYCERIN 2% 1 GM OINT PKT TD SCH (14:00)
[2017-02-27] MEDS ORDERED: DOCUSATE SODIUM 100 MG CAP PO PRN (16:00)
[2017-02-27] MEDS ORDERED: HYDROmorphONE 2 MG TAB PO PRN (16:00)
[2017-02-27] MEDS: ASPIRIN 81 MG TAB PO SCH (17:28)
[2017-02-27] MEDS: POTASSIUM CHLORIDE (SR) 10 MEQ TAB PO SCH (17:28)
[2017-02-27] MEDS: metFORMIN 500 MG TAB PO SCH (17:29)
[2017-02-27] MEDS: INSULIN ASPART [NOVOLOG] 3 ML PEN SC SCH ×3 (17:35→20:27)
[2017-02-27] MEDS: RANOLAZINE (SR) 500 MG TAB PO SCH (20:25)
[2017-02-27] MEDS: PHENYTOIN 100 MG CAP PO SCH (20:25)
[2017-02-27] MEDS: LOSARTAN 50 MG TAB PO SCH (20:25)
[2017-02-27] MEDS: ATORVASTATIN 80 MG TAB PO SCH (20:25)
[2017-02-27] MEDS ORDERED: BACLOFEN 10 MG TAB PO PRN (21:00)
[2017-02-27] MEDS ORDERED: BACLOFEN 10 MG TAB PO SCH (21:00)
[2017-02-27] MEDS: HYDROmorphONE 1 MG/ML SYG IV PRN (21:16)
[2017-02-27] MEDS ORDERED: ALPRAZOLAM 0.5 MG TAB PO PRN (22:00)
[2017-02-27] MEDS ORDERED: ALPRAZOLAM 0.5 MG TAB PO SCH (22:00)
[2017-02-27] MEDS: ZOLPIDEM 5 MG TAB PO PRN (22:54)
[2017-02-28] VITALS (24 sets, daily range): BP systolic 86–121; BP diastolic 38–80; PULSE 60–86; RESP 11–21
[2017-02-28] MEDS: HYDROmorphONE 1 MG/ML SYG IV PRN ×4 (00:57→21:08)
[2017-02-28] MEDS: ACCU-CHEK XX SCH (02:00)
[2017-02-28 05:14] LABS: BASOPHILS % 0.3 % (0.0-2.0); EOSINOPHILS # 0.2 10^3/ul (0.0-0.5); EOSINOPHILS % 2.1 % (0.0-7.0); HEMATOCRIT 33.1 % (42.0-52.0); HEMOGLOBIN 10.6 g/dl (14.0-18.0); LYMPHOCYTES % 10.7 % (15.0-51.0); MEAN CORPUSCULAR HEMOGLOBIN 28.2 pg (29.0-33.0); MEAN PLATELET VOLUME 10.9 fl (7.4-10.4); MONOCYTE # 0.9 10^3/ul (0.3-0.9); MONOCYTES % 9.4 % (0.0-11.0); NEUTROPHIL # 7.1 10^3/ul (1.6-7.5); NEUTROPHILS % 77.3 % (39.0-77.0); PLATELET COUNT 164 10^3/UL (140-415); RED BLOOD COUNT 3.76 10^6/ul (4.70-6.10); RED CELL DISTRIBUTION WIDTH 17.1 % (11.5-14.5); WHITE BLOOD COUNT 9.2 10^3/ul (4.8-10.8)
[2017-02-28 05:40] LABS: ALBUMIN 3.6 g/dl (3.3-4.9); ALBUMIN/GLOBULIN RATIO 1.2; BILIRUBIN,INDIRECT 1.2 mg/dl (0-1.1); BILIRUBIN,TOTAL 1.2 mg/dl (0.2-1.3); CALCIUM 8.6 mg/dl (8.4-10.2); CREATININE 1.25 mg/dl (0.61-1.24); POTASSIUM 3.7 mmol/L (3.5-5.1); TOTAL PROTEIN 6.6 g/dl (6.1-8.1)
[2017-02-28] MEDS ORDERED: PANTOPRAZOLE 40 MG INJ IV SCH (06:00)
--- NOTE | 2017-02-28 07:40 | DS ---
DATE OF ADMISSION: 02/27/2017 DATE OF DISCHARGE: 02/27/2017 The patient most likely will be transferred to [facility] for further care. DISCHARGE DIAGNOSIS: 1. Acute respiratory failure due to acute decompensated systolic heart failure. 2. Multivessel coronary disease with left heart catheterization in 2017 with all grafts occluded, except left internal mammary artery, which feeds the diffusely diseased left anterior descending, status post coronary artery bypass graft and multiple percutaneous coronary interventions and stenting. 3. Cardiomyopathy with ejection fraction of 35 percent. Last echocardiogram done at [facility]. 4. Status post automatic implantable cardioverter defibrillator. 5. Hypertension. 6. Diabetes mellitus. 7. Hyperlipidemia. REASON FOR ADMISSION: The patient is a 56-year-old gentleman well known to me from previous admission. The patient has history of coronary artery disease, status post PCI and stent placement to obtuse marginal in 11/2014, coronary artery bypass graft with patent KNOTT to LAD, and all other grafts occluded by catheterization in 07/2016. The patient also was noted to have diffuse disease of his LAD after insertion of KNOTT graft. The patient is status post PTCA to distal LAD, without significant change in symptoms, and also status post attempted obtuse marginal at [facility] back in 07/2016. The patient came to Emergency Room with shortness of breath and was diagnosed with acute respiratory failure. The patient had acute decompensated systolic heart failure and was treated with IV Lasix. The patient was initially on BiPAP and subsequently improved. Currently he is on nasal cannula and is breathing comfortably. The patient was seen by Dr. Lambert from pulmonary standpoint,Dr. Ma from cardiac standpoint and will be transferred to [facility] for further care. The patient meanwhile has been started on aspirin, Plavix, Lipitor, carvedilol, digoxin, Lasix, insulin, Imdur, Cozaar, metformin, nitrates. The patient apparently also has a history of seizures for which he has been on Dilantin. The patient currently chest pain free and does not have any fever or chills since admission. The patient did have a slight elevation of WBC at 11.1 in the morning. ProBNP was 2810. Chemistry was unremarkable. Attempts are being made to transfer him to [facility] for further care. The patient is on transplant list and is on IV Milrinone at home. Dictated By: Luis Manuel Wright MD /analilia/larry /Document#: [id number]
[2017-02-28 08:00] LABS: AADO2 Arterial 31.5 mmHg (7.0-24.0); Allen Test ACCEPTAB; Arterial Base Excess -0.4 mmol/L (-3.0-3); Arterial COHb 1.2 % (0.0-3.0); Arterial Fraction of Oxyhgb 90.9 % (93.0-99.0); Arterial HCO3 24.7 mmol/L (22.0-26.0); Arterial MetHb 0.3 % (0.0-1.5); Arterial Total Hemglobin 12.9 g/dl (12.0-18.0); MODE ROOM AIR
[2017-02-28] MEDS: INSULIN ASPART [NOVOLOG] 3 ML PEN SC SCH ×7 (08:11→21:00)
[2017-02-28] MEDS: INSULIN GLARGINE [LANtus] 3 ML PEN SC SCH (08:14)
[2017-02-28] MEDS: metFORMIN 500 MG TAB PO SCH ×2 (08:21→18:00)
[2017-02-28] MEDS: PANTOPRAZOLE (EC) 40 MG TAB PO SCH (08:25)
[2017-02-28] MEDS: CYANOCOBALAMIN 500 MCG TAB PO SCH (08:26)
[2017-02-28] MEDS: POTASSIUM CHLORIDE (SR) 10 MEQ TAB PO SCH (08:26)
[2017-02-28] MEDS: ASPIRIN 81 MG TAB PO SCH (08:26)
[2017-02-28] MEDS: RANOLAZINE (SR) 500 MG TAB PO SCH ×2 (08:27→21:06)
[2017-02-28] MEDS: CLOPIDOGREL 75 MG TAB PO SCH (08:27)
[2017-02-28] MEDS: FUROSEMIDE 40 MG INJ IV SCH (08:28)
[2017-02-28] MEDS: ENOXAPARIN 40 MG/0.4 ML SYG SC SCH (08:30)
--- NOTE | 2017-02-28 08:41 | RADRPT ---
PROCEDURE: XR Chest. CLINICAL INDICATION: Shortness of breath. TECHNIQUE: Single frontal view. COMPARISON: 02/27/2017. FINDINGS: The right arm PICC line remains in satisfactory position. There is a stent overlying the left upper chest medially. There are sternal wires. There is a dual lead permanent pacemaker/internal cardiac d efibrillator. The heart is mildly enlarged. There is calcification in the aorta consistent with atherosclerosis. Mild atelectasis is present at the left lung base. Pulmonary edema is improved. There is no pleural effusion. There is no pneumothorax. IMPRESSION: 1. Improved pulmonary edema. 2. No other change from 02/27/2017. RPTAT: QQ .Kael Rao MD, MD Date Time Electronically viewed and signed by .Kael Rao MD, on 02/28/2017 08:40 .R/
--- NOTE | 2017-02-28 08:54 | CONS ---
DATE OF ADMISSION: 02/27/2017 DATE OF CONSULTATION: 02/27/2017 REFERRING PHYSICIAN: Dr. Wright. REASON FOR CONSULTATION: Chest pain, decompensated, heart failure. HISTORY OF PRESENT ILLNESS: Mr. Louis is a 57-year-old gentleman, known to me from multiple prior admissions, history of heart failure with a low ejection fraction, history of prior coronary artery bypass graft and multiple interventions, who is awaiting heart transplant evaluation at [facility], who comes to the hospital now for evaluation of shortness of breath and flash pulmonary edema. Patient was hypoxic. He is on BiPAP now and responded well. He is making some urine now. He is on milrinone drip. For now, conservative therapy is expected. We will continue afterload reduction. We will try to contact [facility] for transfer for heart transplant evaluation and follow patient expectantly. PAST MEDICAL HISTORY: 1. Hypertension. 2. Dyslipidemia. 3. Cardiomyopathy with EF of less than 20 percent. 4. Prior history of CABG. 5. Prior history of interventions. 6. History of tobacco use. ALLERGIES: NO KNOWN DRUG ALLERGIES. SOCIAL HISTORY: . FAMILY HISTORY: Negative for sudden cardiac or premature coronary artery disease. MEDICATION: Here, patient is on: 1. Lasix 40 mg IV. 2. Enalapril 2.5 mg. 3. Morphine sulfate. REVIEW OF SYSTEMS: No fevers, no chills. Positive shortness of breath. HEENT: . CARDIOVASCULAR: No chest pain reported, flash pulmonary edema. RESPIRATORY: Shortness of breath, acute on chronic. GASTROINTESTINAL: No nausea, vomiting. GENITOURINARY: No dysuria, hematuria. NEUROLOGIC: No focal neurologic deficits. PSYCHIATRIC: History of psychiatric illness. PHYSICAL EXAMINATION: VITAL SIGNS: Currently temperature 98.7, heart rate 86, blood pressure 136/ . GENERAL: Thin gentleman, in no acute distress. Alert and oriented x2 to 3. Somewhat aware of his condition. HEENT: Head is normocephalic, atraumatic. Eyes, anicteric. NECK: Supple. JVD is extended 8-9 cm. There is no lymphadenopathy, thyromegaly. CARDIAC: Regular with soft holosystolic murmur at the apex. ICD is in place. LUNGS: Coarse at the base. ABDOMEN: Distended. Bowel sounds are present. There is no acute hepatosplenomegaly. NEUROLOGIC: Intact cranial nerves. EXTREMITIES: Bilateral lower extremity edema. LABORATORY: White blood cell count is 11.1, hemoglobin 11.9, platelets 188. His INR is 1.03. Sodium 141, potassium 3.5, BUN 16, creatinine 0.9. Troponin is negative at 0.014. IMPRESSION AND PLAN: 1. Congestive heart failure exacerbation. Patient with congestive heart failure exacerbation, acute on chronic. For now, supportive care is provided. [place] will contact [facility] for consideration of hospital- to-hospital transfer and for expedited heart transplant placement. 2. Implantable cardioverter defibrillator. Normal function noted. Continue to follow. 3. Coronary artery disease. No chest pain now. Troponins are negative. No acute ischemic event identified. 4. Shortness of breath. Continue to treat with bilevel positive airway pressure. 5. A history of tobacco use. Patient does not smoke any more. Thank you, Dr. Wright, for referring this patient for my evaluation. Dictated By: Kofi Ma MD /analilia/mickey /Document#: [id number]
[2017-02-28] MEDS ORDERED: AMLODIPINE 5 MG TAB PO SCH (09:00)
--- NOTE | 2017-02-28 10:25 | CONS ---
Date/Time of Note Date/Time of Note DATE: 02/28/17 TIME: 10:23 Consult Date/Type/Reason Admit Date/Time Feb 27, 2017 at 03:48 Initial Consult Date Type of Consultation: pulm Subjective Awake alert oriented this morning. Off BiPAP. Denies shortness of breath. Objective Vital Signs Date Time Temp Pulse Resp B/P Pulse Ox O2 Delivery O2 Flow Rate FiO2 02/28/17 07:30 98.7 63 14 97 Nasal Cannula 02/28/17 07:00 106/57 02/27/17 20:47 4.0 02/27/17 11:30 40 Intake and Output 02/27/17 02/27/17 02/28/17 15:00 23:00 07:00 Intake Total 100 ml 250 ml 240 ml Output Total 1600 ml 560 ml 115 ml Balance -1500 ml -310 ml 125 ml Exam PHYSICAL EXAMINATION: GENERAL: Well-nourished, well-developed gentleman, comfortable at rest, no acute distress. VITAL SIGNS: HEENT: Dry mucous membranes. Pupils equal and react to light. CARDIAC: S1, S2. No added sounds or murmurs. CHEST: Diminished air entry bilaterally. ABDOMEN: Soft, nontender. No guarding or rebound. EXTREMITIES: No edema. NEUROLOGIC: No focal deficits. Results/Medications Result Diagram: 02/28/17 0500 02/28/17 0500 Results 24 hrs Laboratory Tests Test 02/27/17 14:01 02/27/17 17:18 02/27/17 20:23 02/28/17 05:00 Troponin I 0.072 Bedside Glucose 118 113 White Blood Count 9.2 Red Blood Count 3.76 L Hemoglobin 10.6 L Hematocrit 33.1 L Mean Corpuscular Volume 88.0 Mean Corpuscular Hemoglobin 28.2 L Mean Corpuscular Hemoglobin Concent 32.0 Red Cell Distribution Width 17.1 H Platelet Count 164 Mean Platelet Volume 10.9 H Neutrophils % 77.3 H Lymphocytes % 10.7 L Monocytes % 9.4 Eosinophils % 2.1 Basophils % 0.3 Nucleated Red Blood Cells % 0.0 Neutrophils # 7.1 Lymphocytes # 1.0 Monocytes # 0.9 Eosinophils # 0.2 Basophils # 0.0 Nucleated Red Blood Cells # 0.0 Sodium Level 133 L Potassium Level 3.7 Chloride Level 97 Carbon Dioxide Level 25 Anion Gap 15 Blood Urea Nitrogen 21 H Creatinine 1.25 H Glucose Level 386 #H Calcium Level 8.6 Total Bilirubin 1.2 Direct Bilirubin 0.00 Indirect Bilirubin 1.2 H Aspartate Amino Transf (AST/SGOT) 17 Alanine Aminotransferase (ALT/SGPT) 37 Alkaline Phosphatase 68 Total Protein 6.6 # Albumin 3.6 # Globulin 3.00 Albumin/Globulin Ratio 1.20 Test 02/28/17 07:00 02/28/17 07:28 Blood Gas Specimen Source Blood arterial Arterial Blood Date Drawn 02/28/2017 7:20:53 AM Arterial Blood pH (Temp corrected) 7.385 Arterial Blood pCO2 (Temp correct) 42.3 Arterial Blood pO2 (Temp corrected) 67.6 L Arterial Blood HCO3 24.7 Arterial Blood Base Excess -0.4 Arterial Blood Oxygen Saturation 92.3 L Glenn Test ACCEPTAB Arterial Blood Gas Puncture Site Right Radial Arterial Blood Carboxyhemoglobin 1.2 Arterial Blood Methemoglobin 0.3 Blood Gas A-a O2 Differential 31.5 H Oxyhemoglobin Percent 90.9 L Total Hemoglobin 12.9 Blood Gas Temperature 37.0 Blood Gas Modality ROOM AIR FiO2 21.0 Blood Gas Notified Whom JLD Blood Gas Notified Time 02/28/2017 8:00:26 AM Bedside Glucose 264 H Medications Current Medications Furosemide (Lasix) 40 mg DAILY IV Last administered on 02/28/17 08:28; Admin Dose 40 MG; Start 02/27/17 at 09:00 Enoxaparin Sodium (Lovenox) 40 mg DAILY SC Last administered on 02/28/17 08:30 ; Admin Dose 40 MG; Start 02/27/17 at 09:00 Aspirin (Aspirin) 81 mg DAILY PO Last administered on 02/28/17 08:26; Admin Dose 81 MG; Start 02/27/17 at 16:00 Atorvastatin Calcium (Lipitor) 80 mg HS PO Last administered on 02/27/17 20:25 ; Admin Dose 80 MG; Start 02/27/17 at 21:00 Carvedilol (Coreg) 25 mg BID PO Last administered on 02/28/17 08:26; Admin Dose 25 MG; Start 02/27/17 at 21:00 Clopidogrel Bisulfate (plaVIX) 75 mg DAILY PO Last administered on 02/28/17 08 :27; Admin Dose 75 MG; Start 02/28/17 at 09:00 Cyanocobalamin (Vitamin B12) 1,000 mcg DAILY PO Last administered on 02/28/17 08:26; Admin Dose 1,000 MCG; Start 02/28/17 at 09:00 Digoxin (Digoxin) 0.125 mg DAILY@13 GTB ; Start 02/28/17 at 13:00 Docusate Sodium (Colace) 100 mg Q12H PRN PO CONSTIPATION; Start 02/27/17 at 16: 00 Hydromorphone HCl (Dilaudid) 2 mg Q8H PRN PO PAIN LEVEL 6-10 Last administered on 02/27/17 20:26; Admin Dose 2 MG; Start 02/27/17 at 16:00 Insulin Glargine (Lantus) 30 unit DAILY@08 SC Last administered on 02/28/17 08 :14; Admin Dose 30 UNIT; Start 02/28/17 at 08:00 Isosorbide Mononitrate (Imdur) 30 mg DAILY PO ; Start 02/28/17 at 09:00 Losartan Potassium (Cozaar) 50 mg Q12 PO Last administered on 02/27/17 20:25; Admin Dose 50 MG; Start 02/27/17 at 21:00 Pantoprazole (Protonix Tab) 40 mg DAILY PO Last administered on 02/28/17 08:25 ; Admin Dose 40 MG; Start 02/28/17 at 09:00 Phenytoin (Dilantin) 300 mg HS PO ; Start 02/27/17 at 21:00 Potassium Chloride (Klor-Con 10) 10 meq DAILY PO Last administered on 08:26; Admin Dose 10 MEQ; Start 02/27/17 at 16:00 Ranolazine (Ranexa) 1,000 mg BID PO Last administered on 02/28/17 08:27; Admin Dose 1,000 MG; Start 02/27/17 at 21:00 Zolpidem Tartrate (Ambien) 10 mg QHS PRN PO INSOMNIA Last administered on 22:54; Admin Dose 10 MG; Start 02/27/17 at 16:00 Alprazolam (Xanax) 0.5 mg Q8H PRN PO anxiety Last administered on 02/28/17 08: 27; Admin Dose 0.5 MG; Start 02/27/17 at 22:00 Baclofen (Lioresal) 10 mg Q12H PRN PO spasm; Start 02/27/17 at 21:00 Diagnostic Test (Pha) (Accu-Chek) 1 ea 02 XX ; Start 02/28/17 at 02:00 Hydromorphone HCl (Dilaudid) 0.5 mg Q4H PRN IV PAIN LEVEL 6-10 Last administered on 02/28/17 06:33; Admin Dose 0.5 MG; Start 02/27/17 at 21:00 Hydromorphone HCl (Dilaudid) 1 mg Q4H PRN IV SEVERE PAIN LEVEL 7-10 Last administered on 02/28/17 00:57; Admin Dose 1 MG; Start 02/27/17 at 21:00 Assessment/Plan Chief Complaint/Hosp Course IMPRESSION: 1. Acute pulmonary edema with hypoxemic respiratory failure. 2. Severe systolic and diastolic dysfunction on a patient who is pending heart transplant. 3. Chronic milrinone infusion via continues pump. 4. Prior history of tobacco use. PLAN: 1. Continue milrinone. 2. Continue diuretics. 3. Cardiology recommendations. 4. Deep vein thrombosis and gastrointestinal prophylaxis. 5. Recommend transfer to [facility] for further management by Heart transplant Team. 6. Nasal cannula oxygen. Noninvasive positive pressure ventilation as needed. Problems: HERMELINDO DUNN MD, [facility] Feb 28, 2017 10:25
[2017-02-28] MEDS: LOSARTAN 50 MG TAB PO SCH ×2 (11:15→21:17)
--- NOTE | 2017-02-28 12:08 | CONS ---
Date/Time of Note Date/Time of Note DATE: 02/28/17 TIME: 11:58 Assessment/Plan Assessment/Plan Chief Complaint/Hosp Course IMP: 1.CHF-systolic acute on chronic. Improving volume status and resp status 1.Angina/Chest pain-refractory to medical therapy. [facility] 2016 with all grafts occluded except KNOTT which feeds diffusely diseased LAD 2.cad s/p cabg 3.s/p PTCA/stent 4.cardiomyopathy with low EF. Has now been turned down for transplant at [facility] due to comorbid risk factors of pad and recently d/c'd on continuous milrinone infusion. 5.ICD 6. HTN 7.DM 8.HL 9. Renal failure-acute Recc: -ICU/tele monitoring -Continue home milrinone infusion -Continue ARB/BB/oral nitrates as tolerated and may need to reduce doses to allow to tolerate -Continue gentle lasix diuresis and follow volume status closely -Continue current ranexa -Continuie asa/plavix -Will speak with case management about possible transfer [facility]/ Problems: Consultation Date/Type/Reason Admit Date/Time Feb 27, 2017 at 03:48 Initial Consult Date 02/27/2017 Type of Consultation: cardiology Reason for Consultation CHF Referring Provider: [place] ALEXANDER MD Exam/Review of Systems Vital Signs Vitals Vital Signs Date Time Temp Pulse Resp B/P Pulse Ox O2 Delivery O2 Flow Rate FiO2 02/28/17 08:00 60 02/28/17 07:30 98.7 14 97 Nasal Cannula 02/28/17 07:00 106/57 02/27/17 20:47 4.0 02/27/17 11:30 40 Intake and Output 02/27/17 02/27/17 02/28/17 15:00 23:00 07:00 Intake Total 100 ml 250 ml 240 ml Output Total 1600 ml 560 ml 115 ml Balance -1500 ml -310 ml 125 ml Exam Review of Systems: CONSTITUTIONAL: No fevers, chills. PULMONARY: No sob CARDIOVASCULAR: No chest pain/palpitations GASTROINTESTINAL: No nausea/vomiting. GENITOURINARY: No hematuria/dysuria. MUSCULOSKELETAL: No myagias/arthalgias. PSYCHIATRIC: The patient denies depression. NEUROLOGIC: No weakness Constitutional: alert Psych: no complaints ENMT: mucosa pink and moist Neck: jvd (9 cm water), supple Respiratory: diminished breath sounds (at bases/B) Cardiovascular: regular rate and rhythm Gastrointestinal: non-tender, soft Musculoskeletal: muscle weakness (generalized) Extremities: edema (trace/B) Neurological: lethargic Results Result Diagram: 02/28/17 0500 02/28/17 0500 Results 24 hrs Laboratory Tests Test 02/27/17 14:01 02/27/17 17:18 02/27/17 20:23 02/28/17 05:00 Troponin I 0.072 Bedside Glucose 118 113 White Blood Count 9.2 Red Blood Count 3.76 L Hemoglobin 10.6 L Hematocrit 33.1 L Mean Corpuscular Volume 88.0 Mean Corpuscular Hemoglobin 28.2 L Mean Corpuscular Hemoglobin Concent 32.0 Red Cell Distribution Width 17.1 H Platelet Count 164 Mean Platelet Volume 10.9 H Neutrophils % 77.3 H Lymphocytes % 10.7 L Monocytes % 9.4 Eosinophils % 2.1 Basophils % 0.3 Nucleated Red Blood Cells % 0.0 Neutrophils # 7.1 Lymphocytes # 1.0 Monocytes # 0.9 Eosinophils # 0.2 Basophils # 0.0 Nucleated Red Blood Cells # 0.0 Sodium Level 133 L Potassium Level 3.7 Chloride Level 97 Carbon Dioxide Level 25 Anion Gap 15 Blood Urea Nitrogen 21 H Creatinine 1.25 H Glucose Level 386 #H Calcium Level 8.6 Total Bilirubin 1.2 Direct Bilirubin 0.00 Indirect Bilirubin 1.2 H Aspartate Amino Transf (AST/SGOT) 17 Alanine Aminotransferase (ALT/SGPT) 37 Alkaline Phosphatase 68 Total Protein 6.6 # Albumin 3.6 # Globulin 3.00 Albumin/Globulin Ratio 1.20 Test 02/28/17 07:00 02/28/17 07:28 Blood Gas Specimen Source Blood arterial Arterial Blood Date Drawn 02/28/2017 7:20:53 AM Arterial Blood pH (Temp corrected) 7.385 Arterial Blood pCO2 (Temp correct) 42.3 Arterial Blood pO2 (Temp corrected) 67.6 L Arterial Blood HCO3 24.7 Arterial Blood Base Excess -0.4 Arterial Blood Oxygen Saturation 92.3 L Glenn Test ACCEPTAB Arterial Blood Gas Puncture Site Right Radial Arterial Blood Carboxyhemoglobin 1.2 Arterial Blood Methemoglobin 0.3 Blood Gas A-a O2 Differential 31.5 H Oxyhemoglobin Percent 90.9 L Total Hemoglobin 12.9 Blood Gas Temperature 37.0 Blood Gas Modality ROOM AIR FiO2 21.0 Blood Gas Notified Whom JLD Blood Gas Notified Time 02/28/2017 8:00:26 AM Bedside Glucose 264 H Medications Medications Current Medications Furosemide (Lasix) 40 mg DAILY IV Last administered on 02/28/17 08:28; Admin Dose 40 MG; Start 02/27/17 at 09:00 Enoxaparin Sodium (Lovenox) 40 mg DAILY SC Last administered on 02/28/17 08:30 ; Admin Dose 40 MG; Start 02/27/17 at 09:00 Aspirin (Aspirin) 81 mg DAILY PO Last administered on 02/28/17 08:26; Admin Dose 81 MG; Start 02/27/17 at 16:00 Atorvastatin Calcium (Lipitor) 80 mg HS PO Last administered on 02/27/17 20:25 ; Admin Dose 80 MG; Start 02/27/17 at 21:00 Carvedilol (Coreg) 25 mg BID PO Last administered on 02/28/17 08:26; Admin Dose 25 MG; Start 02/27/17 at 21:00 Clopidogrel Bisulfate (plaVIX) 75 mg DAILY PO Last administered on 02/28/17 08 :27; Admin Dose 75 MG; Start 02/28/17 at 09:00 Cyanocobalamin (Vitamin B12) 1,000 mcg DAILY PO Last administered on 02/28/17 08:26; Admin Dose 1,000 MCG; Start 02/28/17 at 09:00 Digoxin (Digoxin) 0.125 mg DAILY@13 GTB ; Start 02/28/17 at 13:00 Docusate Sodium (Colace) 100 mg Q12H PRN PO CONSTIPATION; Start 02/27/17 at 16: 00 Hydromorphone HCl (Dilaudid) 2 mg Q8H PRN PO PAIN LEVEL 6-10 Last administered on 02/27/17 20:26; Admin Dose 2 MG; Start 02/27/17 at 16:00 Insulin Glargine (Lantus) 30 unit DAILY@08 SC Last administered on 02/28/17 08 :14; Admin Dose 30 UNIT; Start 02/28/17 at 08:00 Isosorbide Mononitrate (Imdur) 30 mg DAILY PO ; Start 02/28/17 at 09:00 Losartan Potassium (Cozaar) 50 mg Q12 PO Last administered on 02/28/17 11:15; Admin Dose 50 MG; Start 02/27/17 at 21:00 Pantoprazole (Protonix Tab) 40 mg DAILY PO Last administered on 02/28/17 08:25 ; Admin Dose 40 MG; Start 02/28/17 at 09:00 Phenytoin (Dilantin) 300 mg HS PO ; Start 02/27/17 at 21:00 Potassium Chloride (Klor-Con 10) 10 meq DAILY PO Last administered on 08:26; Admin Dose 10 MEQ; Start 02/27/17 at 16:00 Ranolazine (Ranexa) 1,000 mg BID PO Last administered on 02/28/17 08:27; Admin Dose 1,000 MG; Start 02/27/17 at 21:00 Zolpidem Tartrate (Ambien) 10 mg QHS PRN PO INSOMNIA Last administered on 22:54; Admin Dose 10 MG; Start 02/27/17 at 16:00 Alprazolam (Xanax) 0.5 mg Q8H PRN PO anxiety Last administered on 02/28/17 08: 27; Admin Dose 0.5 MG; Start 02/27/17 at 22:00 Baclofen (Lioresal) 10 mg Q12H PRN PO spasm; Start 02/27/17 at 21:00 Diagnostic Test (Pha) (Accu-Chek) 1 ea 02 XX ; Start 02/28/17 at 02:00 Hydromorphone HCl (Dilaudid) 0.5 mg Q4H PRN IV PAIN LEVEL 6-10 Last administered on 02/28/17 06:33; Admin Dose 0.5 MG; Start 02/27/17 at 21:00 Hydromorphone HCl (Dilaudid) 1 mg Q4H PRN IV SEVERE PAIN LEVEL 7-10 Last administered on 02/28/17 00:57; Admin Dose 1 MG; Start 02/27/17 at 21:00 NICHOL ACOSTA Feb 28, 2017 12:08
[2017-02-28] MEDS: ISOSORBIDE MONONITRATE(SR)30 MG TAB PO SCH (12:21)
[2017-02-28] MEDS: DIGOXIN 0.125 MG TAB GTB SCH (12:26)
--- NOTE | 2017-02-28 13:52 | PN ---
Date/Time of Note Date/Time of Note DATE: 02/28/17 TIME: 13:44 Assessment/Plan VTE Prophylaxis VTE Prophylaxis Intervention: SCD's Lines/Catheters IV Catheter Type (from [facility]): PICC Line Central line still needed: Yes Assessment/Plan Chief Complaint/Hosp Course Patient was transferred from telemetry to ICU yesterday due to increased shortness of breath, required BiPAP and Lasix, patient is currently on milrinone drip from home, sitting in bed eating lunch on room air, complains of mild chest pain and shortness of breath on exertion. Problems: Assessment/Plan - Acute on chronic systolic CHF. Dr. Olsen is following in cardiology consultation. Continue diuresis, continue milrinone drip. - Acute pulmonary edema and respiratory failure secondary to CHF, Dr. Lambert is following in pulmonology consultation. - Angina/Chest pain-refractory to medical therapy. [facility] 2016 with all grafts occluded except KNOTT which feeds diffusely diseased LAD - Cad s/p cabg - s/p PTCA/stent - Cardiomyopathy with ejection fraction of 35%. Has now been turned down for transplant at [facility] due to comorbid risk factors of pad and recently d/c'd on continuous milrinone infusion. Pending possible transfer to tertiary facility - ICD - HTN - DM - Carotid stenosis. - Seizure disorder. Continue Dilantin. - Possible vascular dementia. Further recommendations based on clinical course. Plan of care discussed with Dr. Wright. Exam/Review of Systems Vital Signs Vitals Vital Signs Date Time Temp Pulse Resp B/P Pulse Ox O2 Delivery O2 Flow Rate FiO2 02/28/17 08:00 60 02/28/17 07:30 98.7 14 97 Nasal Cannula 02/28/17 07:00 106/57 02/27/17 20:47 4.0 02/27/17 11:30 40 Intake and Output 02/27/17 02/27/17 02/28/17 15:00 23:00 07:00 Intake Total 100 ml 250 ml 240 ml Output Total 1600 ml 560 ml 115 ml Balance -1500 ml -310 ml 125 ml Exam Constitutional: alert, oriented Head: normocephalic Neck: supple Respiratory: normal air movement Cardiovascular: nl pulses Gastrointestinal: non-tender, soft Musculoskeletal: nl extremities to inspection Extremities: normal pulses Results Result Diagram: 02/28/17 0500 02/28/17 0500 Results 24 hrs Laboratory Tests Test 02/27/17 14:01 02/27/17 17:18 02/27/17 20:23 02/28/17 05:00 Troponin I 0.072 Bedside Glucose 118 113 White Blood Count 9.2 Red Blood Count 3.76 L Hemoglobin 10.6 L Hematocrit 33.1 L Mean Corpuscular Volume 88.0 Mean Corpuscular Hemoglobin 28.2 L Mean Corpuscular Hemoglobin Concent 32.0 Red Cell Distribution Width 17.1 H Platelet Count 164 Mean Platelet Volume 10.9 H Neutrophils % 77.3 H Lymphocytes % 10.7 L Monocytes % 9.4 Eosinophils % 2.1 Basophils % 0.3 Nucleated Red Blood Cells % 0.0 Neutrophils # 7.1 Lymphocytes # 1.0 Monocytes # 0.9 Eosinophils # 0.2 Basophils # 0.0 Nucleated Red Blood Cells # 0.0 Sodium Level 133 L Potassium Level 3.7 Chloride Level 97 Carbon Dioxide Level 25 Anion Gap 15 Blood Urea Nitrogen 21 H Creatinine 1.25 H Glucose Level 386 #H Calcium Level 8.6 Total Bilirubin 1.2 Direct Bilirubin 0.00 Indirect Bilirubin 1.2 H Aspartate Amino Transf (AST/SGOT) 17 Alanine Aminotransferase (ALT/SGPT) 37 Alkaline Phosphatase 68 Total Protein 6.6 # Albumin 3.6 # Globulin 3.00 Albumin/Globulin Ratio 1.20 Test 02/28/17 07:00 02/28/17 07:28 02/28/17 12:12 Blood Gas Specimen Source Blood arterial Arterial Blood Date Drawn 02/28/2017 7:20:53 AM Arterial Blood pH (Temp corrected) 7.385 Arterial Blood pCO2 (Temp correct) 42.3 Arterial Blood pO2 (Temp corrected) 67.6 L Arterial Blood HCO3 24.7 Arterial Blood Base Excess -0.4 Arterial Blood Oxygen Saturation 92.3 L Glenn Test ACCEPTAB Arterial Blood Gas Puncture Site Right Radial Arterial Blood Carboxyhemoglobin 1.2 Arterial Blood Methemoglobin 0.3 Blood Gas A-a O2 Differential 31.5 H Oxyhemoglobin Percent 90.9 L Total Hemoglobin 12.9 Blood Gas Temperature 37.0 Blood Gas Modality ROOM AIR FiO2 21.0 Blood Gas Notified Whom JLD Blood Gas Notified Time 02/28/2017 8:00:26 AM Bedside Glucose 264 H 67 L Medications Medications Current Medications Furosemide (Lasix) 40 mg DAILY IV Last administered on 02/28/17 08:28; Admin Dose 40 MG; Start 02/27/17 at 09:00 Enoxaparin Sodium (Lovenox) 40 mg DAILY SC Last administered on 02/28/17 08:30 ; Admin Dose 40 MG; Start 02/27/17 at 09:00 Aspirin (Aspirin) 81 mg DAILY PO Last administered on 02/28/17 08:26; Admin Dose 81 MG; Start 02/27/17 at 16:00 Atorvastatin Calcium (Lipitor) 80 mg HS PO Last administered on 02/27/17 20:25 ; Admin Dose 80 MG; Start 02/27/17 at 21:00 Clopidogrel Bisulfate (plaVIX) 75 mg DAILY PO Last administered on 02/28/17 08 :27; Admin Dose 75 MG; Start 02/28/17 at 09:00 Cyanocobalamin (Vitamin B12) 1,000 mcg DAILY PO Last administered on 02/28/17 08:26; Admin Dose 1,000 MCG; Start 02/28/17 at 09:00 Digoxin (Digoxin) 0.125 mg DAILY@13 GTB Last administered on 02/28/17 12:26; Admin Dose 0.125 MG; Start 02/28/17 at 13:00 Docusate Sodium (Colace) 100 mg Q12H PRN PO CONSTIPATION; Start 02/27/17 at 16: 00 Hydromorphone HCl (Dilaudid) 2 mg Q8H PRN PO PAIN LEVEL 6-10 Last administered on 02/27/17 20:26; Admin Dose 2 MG; Start 02/27/17 at 16:00 Insulin Glargine (Lantus) 30 unit DAILY@08 SC Last administered on 02/28/17 08 :14; Admin Dose 30 UNIT; Start 02/28/17 at 08:00 Isosorbide Mononitrate (Imdur) 30 mg DAILY PO Last administered on 02/28/17 12 :21; Admin Dose 30 MG; Start 02/28/17 at 09:00 Losartan Potassium (Cozaar) 50 mg Q12 PO Last administered on 02/28/17 11:15; Admin Dose 50 MG; Start 02/27/17 at 21:00 Pantoprazole (Protonix Tab) 40 mg DAILY PO Last administered on 02/28/17 08:25 ; Admin Dose 40 MG; Start 02/28/17 at 09:00 Phenytoin (Dilantin) 300 mg HS PO ; Start 02/27/17 at 21:00 Potassium Chloride (Klor-Con 10) 10 meq DAILY PO Last administered on 08:26; Admin Dose 10 MEQ; Start 02/27/17 at 16:00 Ranolazine (Ranexa) 1,000 mg BID PO Last administered on 02/28/17 08:27; Admin Dose 1,000 MG; Start 02/27/17 at 21:00 Zolpidem Tartrate (Ambien) 10 mg QHS PRN PO INSOMNIA Last administered on 22:54; Admin Dose 10 MG; Start 02/27/17 at 16:00 Alprazolam (Xanax) 0.5 mg Q8H PRN PO anxiety Last administered on 02/28/17 08: 27; Admin Dose 0.5 MG; Start 02/27/17 at 22:00 Baclofen (Lioresal) 10 mg Q12H PRN PO spasm; Start 02/27/17 at 21:00 Diagnostic Test (Pha) (Accu-Chek) 1 ea 02 XX ; Start 02/28/17 at 02:00 Hydromorphone HCl (Dilaudid) 0.5 mg Q4H PRN IV PAIN LEVEL 6-10 Last administered on 02/28/17 06:33; Admin Dose 0.5 MG; Start 02/27/17 at 21:00 Hydromorphone HCl (Dilaudid) 1 mg Q4H PRN IV SEVERE PAIN LEVEL 7-10 Last administered on 02/28/17 00:57; Admin Dose 1 MG; Start 02/27/17 at 21:00 Carvedilol (Coreg) 12.5 mg BID PO ; Start 02/28/17 at 21:00 LIBRADO MORENO Feb 28, 2017 13:52
--- NOTE | 2017-02-28 19:24 | RADRPT ---
Echocardiogram Report Patient Name: FANNY RICARDO Gender: Male Date: 1960 Study Date: 27-Feb-2017 Teacher'S Assistant: Batsheva Grissom RDCS Location: [id number] Ref. Physician: AGA BARNETT Quality: Good Procedures: Transthoracic echocardiogram with complete 2D, M-Mode, and doppler examination. Indications: Congestive Heart Failure. 2D/M Mode Doppler Measurement Value Normal Ranges Measurement Value Normal Ranges LVIDd 2D 6.2 3.5 - 5.6 cm AV Peak Raimundo 1.6 m/sec LVIDs 2D 5.1 2.1 - 4.1 cm AV Peak PG 10.1 mmHg LVPWd 2D 1.0 0.6 - 1.1 cm LVOT Peak Raimundo 0.9 m/sec IVSd 2D 1.1 0.6 - 1.1 cm LVOT Peak PG 3.0 mmHg AoR Diam 2D 2.7 2.0 - 3.7 cm MV E Peak Raimundo 1.1 m/sec EDV 2D 195.5 cm3 MV A Peak Raimundo 0.2 m/sec ESV 2D 133.2 cm3 MV E/A 6.6 LA Dimen 2D 4.4 2.3 - 4.0 cm MV Decel Time 198 msec MV Decel [place] 5 MV E/A 6.6 TR Peak Raimundo 3.5 m/sec TR Peak PG 48.6 mmHg RVSP 57.0 mmHg Findings Left Ventricle: Mild concentric left ventricular hypertrophy. Mild enlargement of left ventricle cavity. Severe left ventricular systolic dysfunction. Ejection fraction is visually estimated at 25 %. Tissue Doppler/Mitral Doppler indices are consistent with restrictive physiology with markedly elevated left atrial pressure (Stage IIIIV diastolic dysfunction). Right Ventricle: Normal right ventricular size. Normal right ventricular systolic function. Pacemaker right heart. Left Atrium: There is mild enlargement of left atrium. Right Atrium: The right atrium is normal in size. Mitral Valve: Mitral valve leaflets appear mildly thickened. Mild mitral annular calcification. Mild mitral valve regurgitation. Aortic Valve: Normal appearance of the aortic valve. No significant aortic stenosis or insufficiency. Tricuspid Valve: Normal appearance of the tricuspid valve. Estimated peak PA systolic pressure 57 mmHg. There is mild tricuspid regurgitation. Pulmonic Valve: Normal pulmonic valve appearance. There is mild to moderate pulmonic regurgitation. Pericardium: Normal pericardium with no significant pericardial effusion. Pleural effusion seen. Aorta: Normal aortic root. IVC: Inferior vena cava without respiratory collapse, however, bipap. Conclusions 1.Mild concentric left ventricular hypertrophy. Mild enlargement of left ventricle cavity. Severe left ventricular systolic dysfunction. Ejection fraction is visually estimated at 25 %. Tissue Doppler/Mitral Doppler indices are consistent with restrictive physiology with markedly elevated left atrial pressure (Stage III-IV diastolic dysfunction). 2.Normal right ventricular size. Normal right ventricular systolic function. Pacemaker right heart. 3.There is mild enlargement of left atrium. 4.Mitral valve leaflets appear mildly thickened. Mild mitral annular calcification. Mild mitral valve regurgitation. 5.Normal appearance of the tricuspid valve. Estimated peak PA systolic pressure 57 mmHg. There is mild tricuspid regurgitation. 6.Normal pulmonic valve appearance. There is mild to moderate pulmonic regurgitation. Electronically Signed By: Cuong Olsen 28-Feb-2017 19:23:43 -0700 Patient Name: FANNY RICARDO Study Date: 27-Feb-2017 [id number]
[2017-02-28] MEDS: PHENYTOIN 100 MG CAP PO SCH (21:00)
[2017-02-28] MEDS: ATORVASTATIN 80 MG TAB PO SCH (21:04)
[2017-02-28] MEDS: ZOLPIDEM 5 MG TAB PO PRN (22:38)
[2017-03-01] VITALS (15 sets, daily range): BP systolic 93–132; BP diastolic 46–69; PULSE 60–65; RESP 11–17
[2017-03-01] MEDS: ACCU-CHEK XX SCH (02:00)
[2017-03-01] MEDS: HYDROmorphONE 1 MG/ML SYG IV PRN ×3 (02:13→12:36)
[2017-03-01 05:19] LABS: BASOPHILS % 0.6 % (0.0-2.0); EOSINOPHILS # 0.2 10^3/ul (0.0-0.5); EOSINOPHILS % 2.9 % (0.0-7.0); HEMATOCRIT 31.1 % (42.0-52.0); HEMOGLOBIN 10.3 g/dl (14.0-18.0); LYMPHOCYTES # 1.8 10^3/ul (0.8-2.9); LYMPHOCYTES % 28.4 % (15.0-51.0); MEAN CORPUSCULAR HEMOGLOBIN 28.5 pg (29.0-33.0); MEAN CORPUSCULAR HGB CONC 33.1 g/dl (32.0-37.0); MEAN CORPUSCULAR VOLUME 86.1 fl (82.0-101.0); MEAN PLATELET VOLUME 10.4 fl (7.4-10.4); MONOCYTE # 0.7 10^3/ul (0.3-0.9); MONOCYTES % 11.8 % (0.0-11.0); NEUTROPHIL # 3.5 10^3/ul (1.6-7.5); NEUTROPHILS % 56.1 % (39.0-77.0); PLATELET COUNT 166 10^3/UL (140-415); RED BLOOD COUNT 3.61 10^6/ul (4.70-6.10); RED CELL DISTRIBUTION WIDTH 16.7 % (11.5-14.5); WHITE BLOOD COUNT 6.3 10^3/ul (4.8-10.8)
[2017-03-01 05:37] LABS: CREATININE 0.97 mg/dl (0.61-1.24); POTASSIUM 3.7 mmol/L (3.5-5.1)
[2017-03-01] MEDS: INSULIN ASPART [NOVOLOG] 3 ML PEN SC SCH ×4 (07:35→12:29)
[2017-03-01] MEDS: metFORMIN 500 MG TAB PO SCH (08:14)
[2017-03-01] MEDS: INSULIN GLARGINE [LANtus] 3 ML PEN SC SCH (08:16)
[2017-03-01] MEDS: LOSARTAN 50 MG TAB PO SCH (09:00)
[2017-03-01] MEDS ORDERED: MILRINONE XX SCH (09:00)
[2017-03-01] MEDS: PANTOPRAZOLE (EC) 40 MG TAB PO SCH (09:22)
[2017-03-01] MEDS: FUROSEMIDE 40 MG INJ IV SCH (09:22)
[2017-03-01] MEDS: CYANOCOBALAMIN 500 MCG TAB PO SCH (09:22)
[2017-03-01] MEDS: ASPIRIN 81 MG TAB PO SCH (09:22)
[2017-03-01] MEDS: POTASSIUM CHLORIDE (SR) 10 MEQ TAB PO SCH (09:22)
[2017-03-01] MEDS: RANOLAZINE (SR) 500 MG TAB PO SCH (09:23)
[2017-03-01] MEDS: CLOPIDOGREL 75 MG TAB PO SCH (09:23)
[2017-03-01] MEDS: ISOSORBIDE MONONITRATE(SR)30 MG TAB PO SCH (09:24)
[2017-03-01] MEDS: ENOXAPARIN 40 MG/0.4 ML SYG SC SCH (09:26)
--- NOTE | 2017-03-01 10:40 | PN ---
Date/Time of Note Date/Time of Note DATE: 03/01/17 TIME: 10:39 Assessment/Plan VTE Prophylaxis VTE Prophylaxis Intervention: other Lines/Catheters IV [facility] Type (from [facility] PICC Line Central line still needed: Yes Urinary Cath still in place: No ([facility] CATH) Assessment/Plan Chief Complaint/Hosp Course - Acute on chronic systolic CHF. Dr. Olsen is following in cardiology consultation. Continue diuresis, continue milrinone drip. - Acute pulmonary edema and respiratory failure secondary to CHF, Dr. Lambert is following in pulmonology consultation. - Angina/Chest pain-refractory to medical therapy. [facility] 2017 with all grafts occluded except KNOTT which feeds diffusely diseased LAD - Cad s/p cabg - s/p PTCA/stent - Cardiomyopathy with ejection fraction of 35%. Has now been turned down for transplant at [facility] due to comorbid risk factors of pad and recently d/c'd on continuous milrinone infusion. Pending possible transfer to tertiary facility - ICD - HTN - DM - Carotid stenosis. - Seizure disorder. Continue Dilantin. - Possible vascular dementia. Problems: Subjective 24 Hr Interval Summary Free Text/Dictation Patient has no complaints Exam/Review of Systems Vital Signs Vitals Vital Signs Date Time Temp Pulse Resp B/P Pulse Ox O2 Delivery O2 Flow Rate FiO2 03/01/17 06:00 60 112/54 92 Room Air 03/01/17 05:00 13 02/28/17 22:10 21 02/28/17 21:00 98.0 02/28/17 20:00 4.0 Intake and Output 02/28/17 02/28/17 03/01/17 15:00 23:00 07:00 Intake Total 450 ml 490 ml 200 ml Output Total 280 ml 300 ml 420 ml Balance 170 ml 190 ml -220 ml Exam Constitutional: well developed Head: atraumatic, normocephalic Neck: supple Respiratory: clear to auscultation Cardiovascular: regular rate and rhythm Gastrointestinal: non-tender, soft Extremities: normal pulses Results Result Diagram: 03/01/17 0500 03/01/17 0500 Results 24 hrs Laboratory Tests Test 02/28/17 12:12 02/28/17 17:43 02/28/17 21:02 03/01/17 05:00 Bedside Glucose 67 L 75 104 White Blood Count 6.3 # Red Blood Count 3.61 L Hemoglobin 10.3 L Hematocrit 31.1 L Mean Corpuscular Volume 86.1 Mean Corpuscular Hemoglobin 28.5 L Mean Corpuscular Hemoglobin Concent 33.1 Red Cell Distribution Width 16.7 H Platelet Count 166 Mean Platelet Volume 10.4 Neutrophils % 56.1 Lymphocytes % 28.4 Monocytes % 11.8 H Eosinophils % 2.9 Basophils % 0.6 Nucleated Red Blood Cells % 0.0 Neutrophils # 3.5 Lymphocytes # 1.8 Monocytes # 0.7 Eosinophils # 0.2 Basophils # 0.0 Nucleated Red Blood Cells # 0.0 Sodium Level 134 L Potassium Level 3.7 Chloride Level 99 Carbon Dioxide Level 28 Anion Gap 11 Blood Urea Nitrogen 23 H Creatinine 0.97 Glucose Level 127 # Calcium Level 9.0 Test 03/01/17 08:10 Bedside Glucose 129 Medications Medications Current Medications Furosemide (Lasix) 40 mg DAILY IV Last administered on 03/01/17 09:22; Admin Dose 40 MG; Start 02/27/17 at 09:00 Enoxaparin Sodium (Lovenox) 40 mg DAILY SC Last administered on 03/01/17 09:26 ; Admin Dose 40 MG; Start 02/27/17 at 09:00 Aspirin (Aspirin) 81 mg DAILY PO Last administered on 03/01/17 09:22; Admin Dose 81 MG; Start 02/27/17 at 16:00 Atorvastatin Calcium (Lipitor) 80 mg HS PO Last administered on 02/28/17 21:04 ; Admin Dose 80 MG; Start 02/27/17 at 21:00 Clopidogrel Bisulfate (plaVIX) 75 mg DAILY PO Last administered on 03/01/17 09 :23; Admin Dose 75 MG; Start 02/28/17 at 09:00 Cyanocobalamin (Vitamin B12) 1,000 mcg DAILY PO Last administered on 03/01/17 09:22; Admin Dose 1,000 MCG; Start 02/28/17 at 09:00 Digoxin (Digoxin) 0.125 mg DAILY@13 GTB Last administered on 02/28/17 12:26; Admin Dose 0.125 MG; Start 02/28/17 at 13:00 Docusate Sodium (Colace) 100 mg Q12H PRN PO CONSTIPATION; Start 02/27/17 at 16: 00 Hydromorphone HCl (Dilaudid) 2 mg Q8H PRN PO PAIN LEVEL 6-10 Last administered on 02/27/17 20:26; Admin Dose 2 MG; Start 02/27/17 at 16:00 Insulin Glargine (Lantus) 30 unit DAILY@08 SC Last administered on 03/01/17 08 :16; Admin Dose 30 UNIT; Start 02/28/17 at 08:00 Isosorbide Mononitrate (Imdur) 30 mg DAILY PO Last administered on 03/01/17 09 :24; Admin Dose 30 MG; Start 02/28/17 at 09:00 Losartan Potassium (Cozaar) 50 mg Q12 PO Last administered on 02/28/17 21:17; Admin Dose 50 MG; Start 02/27/17 at 21:00 Pantoprazole (Protonix Tab) 40 mg DAILY PO Last administered on 03/01/17 09:22 ; Admin Dose 40 MG; Start 02/28/17 at 09:00 Phenytoin (Dilantin) 300 mg HS PO ; Start 02/27/17 at 21:00 Potassium Chloride (Klor-Con 10) 10 meq DAILY PO Last administered on 09:22; Admin Dose 10 MEQ; Start 02/27/17 at 16:00 Ranolazine (Ranexa) 1,000 mg BID PO Last administered on 03/01/17 09:23; Admin Dose 1,000 MG; Start 02/27/17 at 21:00 Zolpidem Tartrate (Ambien) 10 mg QHS PRN PO INSOMNIA Last administered on 22:38; Admin Dose 10 MG; Start 02/27/17 at 16:00 Alprazolam (Xanax) 0.5 mg Q8H PRN PO anxiety Last administered on 02/28/17 08: 27; Admin Dose 0.5 MG; Start 02/27/17 at 22:00 Baclofen (Lioresal) 10 mg Q12H PRN PO spasm; Start 02/27/17 at 21:00 Diagnostic Test (Pha) (Accu-Chek) 1 ea 02 XX ; Start 02/28/17 at 02:00 Hydromorphone HCl (Dilaudid) 0.5 mg Q4H PRN IV PAIN LEVEL 6-10 Last administered on 02/28/17 06:33; Admin Dose 0.5 MG; Start 02/27/17 at 21:00 Hydromorphone HCl (Dilaudid) 1 mg Q4H PRN IV SEVERE PAIN LEVEL 7-10 Last administered on 03/01/17 06:38; Admin Dose 1 MG; Start 02/27/17 at 21:00 Carvedilol (Coreg) 12.5 mg BID PO Last administered on 02/28/17 21:04; Admin Dose 12.5 MG; Start 02/28/17 at 21:00 Miscellaneous Information (* Miscellaneous Pharmacy Order) "Regarding Milrirone gtt (h... ONCE XX ; Start 03/01/17 at 09:00 CECILIA MARTINEZ Mar 01, 2017 10:40
--- NOTE | 2017-03-01 11:49 | CONS ---
Date/Time of Note Date/Time of Note DATE: 03/01/17 TIME: 11:43 Assessment/Plan Assessment/Plan Chief Complaint/Hosp Course IMP: 1.CHF-systolic acute on chronic. Improving volume status and resp status. Echo 25% during this index admit 1.Angina/Chest pain-refractory to medical therapy. [facility] 2016 with all grafts occluded except KNOTT which feeds diffusely diseased LAD-negative trop x 3 since admit 2.cad s/p cabg 3.s/p PTCA/stent 4.cardiomyopathy with low EF. Has now been turned down for transplant at [facility] due to comorbid risk factors of pad and recently d/c'd on continuous milrinone infusion. 5.ICD 6. HTN 7.DM 8.HL 9. Renal failure-acute Recc: -ICU/tele monitoring -Continue home milrinone infusion -Continue ARB/BB/oral nitrates as tolerated -Continue gentle lasix diuresis and follow volume status closely -Continue current ranexa -Continue asa/plavix/digoxin -Has been accepted at [facility] and will be transferred to [facility] Problems: Consultation Date/Type/Reason Admit Date/Time Feb 27, 2017 at 03:48 Initial Consult Date 02/27/2017 Type of Consultation: cardiology Reason for Consultation cardiomyopathy Referring Provider: KY ALEXANDER MD Exam/Review of Systems Vital Signs Vitals Vital Signs Date Time Temp Pulse Resp B/P Pulse Ox O2 Delivery O2 Flow Rate FiO2 03/01/17 11:00 61 16 100/54 92 Room Air 03/01/17 08:00 98.0 02/28/17 22:10 21 02/28/17 20:00 4.0 Intake and Output 02/28/17 02/28/17 03/01/17 15:00 23:00 07:00 Intake Total 450 ml 490 ml 200 ml Output Total 280 ml 300 ml 420 ml Balance 170 ml 190 ml -220 ml Exam Review of Systems: CONSTITUTIONAL: No fevers, chills. PULMONARY: No sob CARDIOVASCULAR: chest pain GASTROINTESTINAL: No nausea/vomiting. GENITOURINARY: No hematuria/dysuria. MUSCULOSKELETAL: No myagias/arthalgias. PSYCHIATRIC: The patient denies depression. NEUROLOGIC: mild generalized weakness Constitutional: alert, oriented Psych: no complaints Head: normocephalic ENMT: mucosa pink and moist Neck: jvd (9 cm water), supple Respiratory: diminished breath sounds Cardiovascular: regular rate and rhythm Gastrointestinal: non-tender, soft Musculoskeletal: muscle tone Extremities: edema (none) Neurological: other (No focal deficits) Results Result Diagram: 03/01/17 0500 03/01/17 0500 Results 24 hrs Laboratory Tests Test 02/28/17 12:12 02/28/17 17:43 02/28/17 21:02 03/01/17 05:00 Bedside Glucose 67 L 75 104 White Blood Count 6.3 # Red Blood Count 3.61 L Hemoglobin 10.3 L Hematocrit 31.1 L Mean Corpuscular Volume 86.1 Mean Corpuscular Hemoglobin 28.5 L Mean Corpuscular Hemoglobin Concent 33.1 Red Cell Distribution Width 16.7 H Platelet Count 166 Mean Platelet Volume 10.4 Neutrophils % 56.1 Lymphocytes % 28.4 Monocytes % 11.8 H Eosinophils % 2.9 Basophils % 0.6 Nucleated Red Blood Cells % 0.0 Neutrophils # 3.5 Lymphocytes # 1.8 Monocytes # 0.7 Eosinophils # 0.2 Basophils # 0.0 Nucleated Red Blood Cells # 0.0 Sodium Level 134 L Potassium Level 3.7 Chloride Level 99 Carbon Dioxide Level 28 Anion Gap 11 Blood Urea Nitrogen 23 H Creatinine 0.97 Glucose Level 127 # Calcium Level 9.0 Test 03/01/17 08:10 Bedside Glucose 129 Medications Medications Current Medications Furosemide (Lasix) 40 mg DAILY IV Last administered on 03/01/17 09:22; Admin Dose 40 MG; Start 02/27/17 at 09:00 Enoxaparin Sodium (Lovenox) 40 mg DAILY SC Last administered on 03/01/17 09:26 ; Admin Dose 40 MG; Start 02/27/17 at 09:00 Aspirin (Aspirin) 81 mg DAILY PO Last administered on 03/01/17 09:22; Admin Dose 81 MG; Start 02/27/17 at 16:00 Atorvastatin Calcium (Lipitor) 80 mg HS PO Last administered on 02/28/17 21:04 ; Admin Dose 80 MG; Start 02/27/17 at 21:00 Clopidogrel Bisulfate (plaVIX) 75 mg DAILY PO Last administered on 03/01/17 09 :23; Admin Dose 75 MG; Start 02/28/17 at 09:00 Cyanocobalamin (Vitamin B12) 1,000 mcg DAILY PO Last administered on 03/01/17 09:22; Admin Dose 1,000 MCG; Start 02/28/17 at 09:00 Digoxin (Digoxin) 0.125 mg DAILY@13 GTB Last administered on 02/28/17 12:26; Admin Dose 0.125 MG; Start 02/28/17 at 13:00 Docusate Sodium (Colace) 100 mg Q12H PRN PO CONSTIPATION; Start 02/27/17 at 16: 00 Hydromorphone HCl (Dilaudid) 2 mg Q8H PRN PO PAIN LEVEL 6-10 Last administered on 02/27/17 20:26; Admin Dose 2 MG; Start 02/27/17 at 16:00 Insulin Glargine (Lantus) 30 unit DAILY@08 SC Last administered on 03/01/17 08 :16; Admin Dose 30 UNIT; Start 02/28/17 at 08:00 Isosorbide Mononitrate (Imdur) 30 mg DAILY PO Last administered on 03/01/17 09 :24; Admin Dose 30 MG; Start 02/28/17 at 09:00 Losartan Potassium (Cozaar) 50 mg Q12 PO Last administered on 02/28/17 21:17; Admin Dose 50 MG; Start 02/27/17 at 21:00 Pantoprazole (Protonix Tab) 40 mg DAILY PO Last administered on 03/01/17 09:22 ; Admin Dose 40 MG; Start 02/28/17 at 09:00 Phenytoin (Dilantin) 300 mg HS PO ; Start 02/27/17 at 21:00 Potassium Chloride (Klor-Con 10) 10 meq DAILY PO Last administered on 09:22; Admin Dose 10 MEQ; Start 02/27/17 at 16:00 Ranolazine (Ranexa) 1,000 mg BID PO Last administered on 03/01/17 09:23; Admin Dose 1,000 MG; Start 02/27/17 at 21:00 Zolpidem Tartrate (Ambien) 10 mg QHS PRN PO INSOMNIA Last administered on 22:38; Admin Dose 10 MG; Start 02/27/17 at 16:00 Alprazolam (Xanax) 0.5 mg Q8H PRN PO anxiety Last administered on 02/28/17 08: 27; Admin Dose 0.5 MG; Start 02/27/17 at 22:00 Baclofen (Lioresal) 10 mg Q12H PRN PO spasm; Start 02/27/17 at 21:00 Diagnostic Test (Pha) (Accu-Chek) 1 ea 02 XX ; Start 02/28/17 at 02:00 Hydromorphone HCl (Dilaudid) 0.5 mg Q4H PRN IV PAIN LEVEL 6-10 Last administered on 02/28/17 06:33; Admin Dose 0.5 MG; Start 02/27/17 at 21:00 Hydromorphone HCl (Dilaudid) 1 mg Q4H PRN IV SEVERE PAIN LEVEL 7-10 Last administered on 03/01/17 06:38; Admin Dose 1 MG; Start 02/27/17 at 21:00 Carvedilol (Coreg) 12.5 mg BID PO Last administered on 02/28/17 21:04; Admin Dose 12.5 MG; Start 02/28/17 at 21:00 Miscellaneous Information (* Miscellaneous Pharmacy Order) "Regarding Milrirone gtt (h... ONCE XX ; Start 03/01/17 at 09:00 NICHOL ACOSTA Mar 01, 2017 11:49
[2017-03-01] MEDS: DIGOXIN 0.125 MG TAB GTB SCH (13:00)
--- NOTE | 2017-03-01 13:16 | DS ---
Date/Time of Note Date/Time of Note DATE: 03/01/17 TIME: 13:14 Discharge Summary Admission/Discharge Info Admit Date/Time Feb 27, 2017 at 03:48 Discharge Date/Time 03/01/17 Hx of Present Illness This is a 57-year-old man, with advanced systolic diastolic heart failure, severe coronary artery disease and is status post coronary artery bypass graft and percutaneous intervention awaiting for heart transplant at [facility] is admitted for shortness of breath , chest pain, and complains of lower extremity swelling. Denies any palpitations, fevers or chills, cough, abdominal pain, nausea, vomiting. Patient is former smoker. Patient was admitted to ICU for further evaluation and management. Patient is admitted with Milrirone med Pump and a PICC line. During assessment-patient is awake, open eyes, responsive to name only. Plan of care DW Dr Wright . ROS All systems reviewed and are negative except as per history of present illness. Allergies Allergies: Coded Allergies: sumatriptan (Unverified Allergy, Unknown, 02/27/17) sumatriptan succinate (Unverified Allergy, Unknown, 02/27/17) venlafaxine HCl (Unverified Allergy, Unknown, 02/27/17) Hospital Course Patient came in for congestive heart failure. He was treated medically but because of his condition, he is to be transferred to [facility] for possible heart transplant. IMP: 1.CHF-systolic acute on chronic. Improving volume status and resp status. Echo 25% during this index admit 1.Angina/Chest pain-refractory to medical therapy. [facility] 2016 with all grafts occluded except KNOTT which feeds diffusely diseased LAD-negative trop x 3 since admit 2.cad s/p cabg 3.s/p PTCA/stent 4.cardiomyopathy with low EF. Has now been turned down for transplant at [facility] due to comorbid risk factors of pad and recently d/c'd on continuous milrinone infusion. 5.ICD 6. HTN 7.DM 8.HL 9. Renal failure-acute Recc: -ICU/tele monitoring -Continue home milrinone infusion -Continue ARB/BB/oral nitrates as tolerated -Continue gentle lasix diuresis and follow volume status closely -Continue current ranexa -Continue asa/plavix/digoxin -Has been accepted at [facility] and will be transferred to [facility] Active Scripts Nitroglycerin* (Nitrostat*) 0.4 Mg Tab.subl, 1 TAB SL Q5M Y for ANGINA for 30 Days Prov:AGA BARNETT 12/01/16 Losartan Potassium* (Cozaar*) 50 Mg Tablet, 50 MG PO Q12 for 30 Days, TAB Prov:AGA BARNETT 12/01/16 Isosorbide Mononitrate* (Isosorbide Mononitrate*) 30 Mg Tab.er.24h, 30 MG PO DAILY for 30 Days Prov:AGA BARNETT 12/01/16 Insulin Glargine* (Lantus*) 100 Unit/Ml Soln, 33 UNIT SC HS for 30 Days Prov:AGA BARNETT 12/01/16 Insulin Aspart* (Novolog Insulin Pen*) 100 Unit/Ml Soln, 11 UNIT SC WITH MEALS for 30 Days Prov:AGA BARNETT 12/01/16 Digoxin* (Digitek*) 125 Mcg Tablet, 0.125 MG GTB DAILY@13 for 30 Days, TAB Prov:AGA BARNETT 12/01/16 Hydromorphone Hcl* (Dilaudid*) 2 Mg Tablet, 2 MG PO Q8H Y for PAIN LEVEL 6-10, # 14 TAB Prov:AGA BARNETT 10/24/16 Insulin Aspart* (Novolog Insulin Pen*) 100 Unit/Ml Soln, 10 UNIT SC WITH MEALS for 30 Days Prov:AGA BARNETT 10/24/16 Insulin Glargine* (Lantus*) 100 Unit/Ml Soln, 30 UNIT SC DAILY@08 for 30 Days Prov:AGA BARNETT 10/24/16 Docusate Sodium (Dok) 100 Mg Capsule, 100 MG PO Q12H Y for CONSTIPATION for 28 Days, CAP Prov:CARLOS MARTINEZ MD 09/22/16 Atorvastatin* (Atorvastatin*) 80 Mg Tablet, 80 MG PO HS for 14 Days, TAB Prov:CARLOS MARTINEZ MD 09/22/16 Reported Medications Zolpidem Tartrate* (Zolpidem Tartrate*) 10 Mg Tablet, 10 MG PO QHS Y for INSOMNIA, #30 TAB 10/16/16 Potassium Chloride (Klor-Con) 10 Meq Tablet.sa, 10 MEQ PO DAILY, TAB.SA 10/16/16 Phenytoin* Sodium Extended (Dilantin*) 100 Mg Capsule, 300 MG PO HS, CAP 10/16/16 Nitroglycerin* (Nitrostat*) 0.4 Mg Tab.subl, 0.4 MG SL Q5MIN Y for CHEST PAIN, BOTTLE 10/16/16 Gabapentin* (Gabapentin*) 100 Mg Capsule, 100 MG PO QID for 14 Days, #90 CAP 10/16/16 Furosemide* (Furosemide*) 40 Mg Tablet, 40 MG PO DAILY, TAB 10/16/16 Ranolazine* (Ranexa*) 1,000 Mg Tab.sr.12h, 1000 MG PO BID, TAB 09/18/16 Pantoprazole* (Pantoprazole*) 40 Mg Tablet.dr, 40 MG PO DAILY, TAB 09/18/16 Metformin Hcl* (Metformin Hcl*) 1,000 Mg Tablet, 1000 MG PO WITH BREAKFAST DINNE , #60 TAB 09/18/16 Aspirin* (Aspirin* Chew) 81 Mg Tab.chew, 81 MG PO DAILY, TAB.CHEW 07/16/16 Cyanocobalamin* (Vitamin B-12*) 1,000 Mcg Tablet.sa, 1000 MCG PO DAILY, TAB 06/16/16 Baclofen* (Baclofen*) 10 Mg Tablet, 10 MG PO BID, TAB 06/16/16 Alprazolam* (Alprazolam*) 0.5 Mg Tablet, 0.5 MG PO Q8 for ANXIETY, TAB 05/18/14 Clopidogrel Bisulfate (Clopidogrel) 75 Mg Tablet, 75 MG PO DAILY, TAB 04/26/14 Carvedilol* (Carvedilol*) 12.5 Mg Tablet, 25 MG PO BID, TAB 04/26/14 Amlodipine Besylate* (Amlodipine Besylate*) 5 Mg Tablet, 5 MG PO DAILY, TAB 04/26/14 Discontinued Reported Medications Isosorbide Mononitrate* (Isosorbide Mononitrate*) 30 Mg Tab.er.24h, 30 MG PO QAM , TAB 10/16/16 Hydromorphone Hcl* (Hydromorphone Hcl*) 2 Mg Tablet, 4 MG PO Q6H Y for PAIN, TAB 10/16/16 Glimepiride* (Glimepiride*) 1 Mg Tablet, 1 MG PO WITH BREAKFAST, TAB 10/16/16 Morphine Sulfate* (Ms Contin*) 15 Mg Tablet.sa, 2 MG PO Q6, TAB 09/18/16 Discontinued Scripts Digoxin* (Digitek*) 125 Mcg Tablet, 0.125 MG PO DAILY@13 for 14 Days, TAB Prov:CARLOS MARTINEZ MD 09/22/16 Losartan Potassium* (Cozaar*) 50 Mg Tab, 50 MG PO Q12, #60 TAB Prov:ALIZA CUENCA MD 12/22/14 Primary Care Provider Not On Staff Doctor Pending Labs Laboratory Tests Test 02/28/17 17:43 02/28/17 21:02 03/01/17 05:00 03/01/17 08:10 Bedside Glucose 75mg/dL (70-220) 104mg/dL (70-220) 129mg/dL (70-220) White Blood Count 6.310^3/ul (4.8-10.8) Red Blood Count 3.6110^6/ul (4.70-6.10) Hemoglobin 10.3g/dl (14.0-18.0) Hematocrit 31.1% (42.0-52.0) Mean Corpuscular Volume 86.1fl (82.0-101.0) Mean Corpuscular Hemoglobin 28.5pg (29.0-33.0) Mean Corpuscular Hemoglobin Concent 33.1g/dl (32.0-37.0) Red Cell Distribution Width 16.7% (11.5-14.5) Platelet Count 23570^3/UL (140-415) Mean Platelet Volume 10.4fl (7.4-10.4) Neutrophils % 56.1% (39.0-77.0) Lymphocytes % 28.4% (15.0-51.0) Monocytes % 11.8% (0.0-11.0) Eosinophils % 2.9% (0.0-7.0) Basophils % 0.6% (0.0-2.0) Nucleated Red Blood Cells % 0.0/100WBC (0.0-0.0) Neutrophils # 3.510^3/ul (1.6-7.5) Lymphocytes # 1.810^3/ul (0.8-2.9) Monocytes # 0.710^3/ul (0.3-0.9) Eosinophils # 0.210^3/ul (0.0-0.5) Basophils # 0.010^3/ul (0.0-0.1) Nucleated Red Blood Cells # 0.010^3/ul (0.0-0.0) Sodium Level 134mmol/L (135-144) Potassium Level 3.7mmol/L (3.5-5.1) Chloride Level 99mmol/L (97-110) Carbon Dioxide Level 28mmol/L (21-31) Anion Gap 11 (8-16) Blood Urea Nitrogen 23mg/dl (7-20) Creatinine 0.97mg/dl (0.61-1.24) Glucose Level 127mg/dl (70-220) Calcium Level 9.0mg/dl (8.4-10.2) Test 03/01/17 12:26 Bedside Glucose 154mg/dL (70-220) CECILIA MARTINEZ Mar 01, 2017 13:16
--- NOTE | 2017-03-01 13:30 | CONS ---
Date/Time of Note Date/Time of Note DATE: 03/01/17 TIME: 13:25 Consult Date/Type/Reason Admit Date/Time Feb 27, 2017 at 03:48 Initial Consult Date Type of Consultation: Pulm/CCM Ordering Provider: [place] ALEXANDER MD Subjective No events. Awaiting transfer to [facility]. Objective Vital Signs Date Time Temp Pulse Resp B/P Pulse Ox O2 Delivery O2 Flow Rate FiO2 03/01/17 11:00 61 16 100/54 92 Room Air 03/01/17 08:00 98.0 02/28/17 22:10 21 02/28/17 20:00 4.0 Intake and Output 02/28/17 02/28/17 03/01/17 15:00 23:00 07:00 Intake Total 450 ml 490 ml 200 ml Output Total 280 ml 300 ml 420 ml Balance 170 ml 190 ml -220 ml Exam HEENT: Neck supple; no JVD; no LAD CVS: RRR, S1 and S2, +S3; 3/^ systolic murmur CHEST: Clear ABD: Soft, NT, + BS EXT: No c/c/e Results/Medications Result Diagram: 03/01/17 0500 03/01/17 0500 Results 24 hrs Laboratory Tests Test 02/28/17 17:43 02/28/17 21:02 03/01/17 05:00 03/01/17 08:10 Bedside Glucose 75 104 129 White Blood Count 6.3 # Red Blood Count 3.61 L Hemoglobin 10.3 L Hematocrit 31.1 L Mean Corpuscular Volume 86.1 Mean Corpuscular Hemoglobin 28.5 L Mean Corpuscular Hemoglobin Concent 33.1 Red Cell Distribution Width 16.7 H Platelet Count 166 Mean Platelet Volume 10.4 Neutrophils % 56.1 Lymphocytes % 28.4 Monocytes % 11.8 H Eosinophils % 2.9 Basophils % 0.6 Nucleated Red Blood Cells % 0.0 Neutrophils # 3.5 Lymphocytes # 1.8 Monocytes # 0.7 Eosinophils # 0.2 Basophils # 0.0 Nucleated Red Blood Cells # 0.0 Sodium Level 134 L Potassium Level 3.7 Chloride Level 99 Carbon Dioxide Level 28 Anion Gap 11 Blood Urea Nitrogen 23 H Creatinine 0.97 Glucose Level 127 # Calcium Level 9.0 Test 03/01/17 12:26 Bedside Glucose 154 Medications Current Medications Furosemide (Lasix) 40 mg DAILY IV Last administered on 03/01/17 09:22; Admin Dose 40 MG; Start 02/27/17 at 09:00 Enoxaparin Sodium (Lovenox) 40 mg DAILY SC Last administered on 03/01/17 09:26 ; Admin Dose 40 MG; Start 02/27/17 at 09:00 Aspirin (Aspirin) 81 mg DAILY PO Last administered on 03/01/17 09:22; Admin Dose 81 MG; Start 02/27/17 at 16:00 Atorvastatin Calcium (Lipitor) 80 mg HS PO Last administered on 02/28/17 21:04 ; Admin Dose 80 MG; Start 02/27/17 at 21:00 Clopidogrel Bisulfate (plaVIX) 75 mg DAILY PO Last administered on 03/01/17 09 :23; Admin Dose 75 MG; Start 02/28/17 at 09:00 Cyanocobalamin (Vitamin B12) 1,000 mcg DAILY PO Last administered on 03/01/17 09:22; Admin Dose 1,000 MCG; Start 02/28/17 at 09:00 Digoxin (Digoxin) 0.125 mg DAILY@13 GTB Last administered on 03/01/17 13:00; Admin Dose 0.125 MG; Start 02/28/17 at 13:00 Docusate Sodium (Colace) 100 mg Q12H PRN PO CONSTIPATION; Start 02/27/17 at 16: 00 Hydromorphone HCl (Dilaudid) 2 mg Q8H PRN PO PAIN LEVEL 6-10 Last administered on 02/27/17 20:26; Admin Dose 2 MG; Start 02/27/17 at 16:00 Insulin Glargine (Lantus) 30 unit DAILY@08 SC Last administered on 03/01/17 08 :16; Admin Dose 30 UNIT; Start 02/28/17 at 08:00 Isosorbide Mononitrate (Imdur) 30 mg DAILY PO Last administered on 03/01/17 09 :24; Admin Dose 30 MG; Start 02/28/17 at 09:00 Losartan Potassium (Cozaar) 50 mg Q12 PO Last administered on 02/28/17 21:17; Admin Dose 50 MG; Start 02/27/17 at 21:00 Pantoprazole (Protonix Tab) 40 mg DAILY PO Last administered on 03/01/17 09:22 ; Admin Dose 40 MG; Start 02/28/17 at 09:00 Phenytoin (Dilantin) 300 mg HS PO ; Start 02/27/17 at 21:00 Potassium Chloride (Klor-Con 10) 10 meq DAILY PO Last administered on 09:22; Admin Dose 10 MEQ; Start 02/27/17 at 16:00 Ranolazine (Ranexa) 1,000 mg BID PO Last administered on 03/01/17 09:23; Admin Dose 1,000 MG; Start 02/27/17 at 21:00 Zolpidem Tartrate (Ambien) 10 mg QHS PRN PO INSOMNIA Last administered on 22:38; Admin Dose 10 MG; Start 02/27/17 at 16:00 Alprazolam (Xanax) 0.5 mg Q8H PRN PO anxiety Last administered on 02/28/17 08: 27; Admin Dose 0.5 MG; Start 02/27/17 at 22:00 Baclofen (Lioresal) 10 mg Q12H PRN PO spasm; Start 02/27/17 at 21:00 Diagnostic Test (Pha) (Accu-Chek) 1 ea 02 XX ; Start 02/28/17 at 02:00 Hydromorphone HCl (Dilaudid) 0.5 mg Q4H PRN IV PAIN LEVEL 6-10 Last administered on 02/28/17 06:33; Admin Dose 0.5 MG; Start 02/27/17 at 21:00 Hydromorphone HCl (Dilaudid) 1 mg Q4H PRN IV SEVERE PAIN LEVEL 7-10 Last administered on 03/01/17 12:36; Admin Dose 1 MG; Start 02/27/17 at 21:00 Carvedilol (Coreg) 12.5 mg BID PO Last administered on 02/28/17 21:04; Admin Dose 12.5 MG; Start 02/28/17 at 21:00 Miscellaneous Information (* Miscellaneous Pharmacy Order) "Regarding Milrirone gtt (h... ONCE XX ; Start 03/01/17 at 09:00 Assessment/Plan Additional Assessment/Plan IMP: 1.CHF-systolic acute on chronic. Improving volume status and resp status. Echo 25% during this index admit 2. Cardiomyopathy 3. s/p.ICD RECS: 1. Continue milrinone gtt 2. Transfer to [facility] TONNY VILLAFUERTE MD Mar 01, 2017 13:30
[2017-03-04 08:00] VITALS: PULSE 100
== END 2017-03-01 14:50 | disposition short-term general hospital (02) | DRG 291 ==
LOC: E/R 01:18 → MS4 03:48 → E/R 05:15 → ICU 08:35
PROVIDERS: ADMIT Internal Medicine; ATTEND Internal Medicine
DX: I11.0 Hypertensive heart disease with heart failure (principal); J96.01 Acute respiratory failure with hypoxia; Z76.82 Awaiting organ transplant status; N17.9 Acute kidney failure, unspecified; I16.1 Hypertensive emergency; I50.23 Acute on chronic systolic (congestive) heart failure; I25.119 Atherosclerotic heart disease of native coronary artery with unspecified angina pectoris; I25.709 Atherosclerosis of coronary artery bypass graft(s), unspecified, with unspecified angina pectoris; Z95.1 Presence of aortocoronary bypass graft; Z95.5 Presence of coronary angioplasty implant and graft; Z87.891 Personal history of nicotine dependence; I25.5 Ischemic cardiomyopathy; E11.9 Type 2 diabetes mellitus without complications; E78.5 Hyperlipidemia, unspecified; Z95.810 Presence of automatic (implantable) cardiac defibrillator; Z79.4 Long term (current) use of insulin
CPT/HCPCS: 36415; 36600; 71010; 80048; 80053; 82803; 82962; 83690; 83880; 84484; 85025; 85610; 87081; 93005; 93306; 93970; 94644; 94660; 96374; C9113; J1170; J1650; J1815; J1940

== ENCOUNTER 2017-05-29 08:55 | Emergency (ER) | payer MEDICAID ==
[~2017-05-29] VITALS: Wt 81.0 kg
[~2017-05-29 08:55] MED LIST changes: -DIGO125T PO; -GLIM1TAB2 PO; -HYDR2TAB3 PO; -MORP15TA92 PO; -NIT4 SL; +NITR0.4T39 SL
--- NOTE | 2017-05-29 09:37 | RADRPT ---
PROCEDURE: XR Chest. CLINICAL INDICATION: Chest pain TECHNIQUE: Single portable view of the chest was obtained COMPARISON: August 15, 2016 FINDINGS: The trachea is midline. The cardiac silhouette is enlarged and pulmonary vascularity are within norm al limits. The lungs are clear. The costophrenic angles are sharp. There is a right-sided PICC line with distal tip in the SVC. A dual lead left-sided AICD device is noted. There is atherosclerotic ca lcification of the aortic knob. IMPRESSION: 1. Cardiomegaly and atherosclerotic disease. No evidence of acute cardiopulmonary disease. 2. Right-sided PICC line in satisfactory position. 3. No change since prior exam. RPTAT: AAPP Physician Gayle Date Time Electronically viewed and signed by Physician Gayle on 05/29/2017 09:37 ROB/
[2017-05-29 09:43] LABS: BASOPHIL # 0.1 10^3/ul (0.0-0.1); BASOPHILS % 0.6 % (0.0-2.0); EOSINOPHILS # 0.2 10^3/ul (0.0-0.5); EOSINOPHILS % 2.4 % (0.0-7.0); HEMATOCRIT 38.3 % (42.0-52.0); HEMOGLOBIN 12.8 g/dl (14.0-18.0); LYMPHOCYTES # 1.3 10^3/ul (0.8-2.9); LYMPHOCYTES % 12.9 % (15.0-51.0); MEAN CORPUSCULAR HEMOGLOBIN 29.3 pg (29.0-33.0); MEAN CORPUSCULAR HGB CONC 33.4 g/dl (32.0-37.0); MEAN CORPUSCULAR VOLUME 87.6 fl (82.0-101.0); MEAN PLATELET VOLUME 10.4 fl (7.4-10.4); MONOCYTE # 0.8 10^3/ul (0.3-0.9); MONOCYTES % 8.6 % (0.0-11.0); NEUTROPHIL # 7.3 10^3/ul (1.6-7.5); NEUTROPHILS % 75.2 % (39.0-77.0); PLATELET COUNT 168 10^3/UL (140-415); RED BLOOD COUNT 4.37 10^6/ul (4.70-6.10); RED CELL DISTRIBUTION WIDTH 15.1 % (11.5-14.5); WHITE BLOOD COUNT 9.7 10^3/ul (4.8-10.8)
[2017-05-29 10:04] LABS: CALCIUM 9.3 mg/dl (8.4-10.2); CREATININE 0.74 mg/dl (0.61-1.24); POTASSIUM 4.6 mmol/L (3.5-5.1)
[2017-05-29 10:16] LABS: TROPONIN-I 0.018 ng/ml (0.00-0.12)
[2017-05-29 10:41] VITALS: BP 126/66; PULSE 68; RESP 18
[2017-05-29] MEDS ORDERED: GUAIFENESIN/DM 5ML CUP PO ONE (11:00)
--- NOTE | 2017-05-29 11:05 | ERD ---
ER Documentation Chief Complaint Chief Complaint flu like symptoms for the past 2 days with chest wall pain.mild distress. HPI This is a 67-year-old male with a history of hypertension, CHF, hyperlipidemia who presents to the emergency room for evaluation of a dry cough. The patient states that he has had a dry cough for the past 2 days. He states that he does have heart problems and says that he is on the transplant waiting list at this time. Patient denies any active chest pain at this time. He states that he has not had a fever or any chills and came to the emergency room today for evaluation of his symptoms. The patient does state that he is receiving milrinone through a PICC line ROS All systems reviewed and are negative except as per history of present illness. Medications Home Meds Active Scripts Nitroglycerin* (Nitrostat*) 0.4 Mg Tab.subl, 1 TAB SL Q5M Y for ANGINA for 30 Days Prov:AGA ABRNETT 12/01/16 Losartan Potassium* (Cozaar*) 50 Mg Tablet, 50 MG PO Q12 for 30 Days, TAB Prov:AGA BARNETT 12/01/16 Isosorbide Mononitrate* (Isosorbide Mononitrate*) 30 Mg Tab.er.24h, 30 MG PO DAILY for 30 Days Prov:AGA BARNETT 12/01/16 Insulin Glargine* (Lantus*) 100 Unit/Ml Soln, 33 UNIT SC HS for 30 Days Prov:AGA BARNETT 12/01/16 Insulin Aspart* (Novolog Insulin Pen*) 100 Unit/Ml Soln, 11 UNIT SC WITH MEALS for 30 Days Prov:AGA BARNETT 12/01/16 Digoxin* (Digitek*) 125 Mcg Tablet, 0.125 MG GTB DAILY@13 for 30 Days, TAB Prov:AGA BARNETT 12/01/16 Hydromorphone Hcl* (Dilaudid*) 2 Mg Tablet, 2 MG PO Q8H Y for PAIN LEVEL 6-10, # 14 TAB Prov:AGA BARNETT 10/24/16 Insulin Aspart* (Novolog Insulin Pen*) 100 Unit/Ml Soln, 10 UNIT SC WITH MEALS for 30 Days Prov:AGA BARNETT 10/24/16 Docusate Sodium (Dok) 100 Mg Capsule, 100 MG PO Q12H Y for CONSTIPATION for 28 Days, CAP Prov:CARLOS MARTINEZ MD 09/22/16 Atorvastatin* (Atorvastatin*) 80 Mg Tablet, 80 MG PO HS for 14 Days, TAB Prov:CARLOS MARTINEZ MD 09/22/16 Reported Medications Zolpidem Tartrate* (Zolpidem Tartrate*) 10 Mg Tablet, 10 MG PO QHS Y for INSOMNIA, #30 TAB 10/16/16 Potassium Chloride (Klor-Con) 10 Meq Tablet.sa, 10 MEQ PO DAILY, TAB.SA 10/16/16 Phenytoin* Sodium Extended (Dilantin*) 100 Mg Capsule, 300 MG PO HS, CAP 10/16/16 Nitroglycerin* (Nitrostat*) 0.4 Mg Tab.subl, 0.4 MG SL Q5MIN Y for CHEST PAIN, BOTTLE 10/16/16 Gabapentin* (Gabapentin*) 100 Mg Capsule, 100 MG PO QID for 14 Days, #90 CAP 10/16/16 Furosemide* (Furosemide*) 40 Mg Tablet, 40 MG PO DAILY, TAB 10/16/16 Ranolazine* (Ranexa*) 1,000 Mg Tab.sr.12h, 1000 MG PO BID, TAB 09/18/16 Pantoprazole* (Pantoprazole*) 40 Mg Tablet.dr, 40 MG PO DAILY, TAB 09/18/16 Metformin Hcl* (Metformin Hcl*) 1,000 Mg Tablet, 1000 MG PO WITH BREAKFAST DINNE , #60 TAB 09/18/16 Aspirin* (Aspirin* Chew) 81 Mg Tab.chew, 81 MG PO DAILY, TAB.CHEW 07/16/16 Cyanocobalamin* (Vitamin B-12*) 1,000 Mcg Tablet.sa, 1000 MCG PO DAILY, TAB 06/16/16 Baclofen* (Baclofen*) 10 Mg Tablet, 10 MG PO BID, TAB 06/16/16 Alprazolam* (Alprazolam*) 0.5 Mg Tablet, 0.5 MG PO Q8 for ANXIETY, TAB 05/18/14 Clopidogrel Bisulfate (Clopidogrel) 75 Mg Tablet, 75 MG PO DAILY, TAB 04/26/14 Carvedilol* (Carvedilol*) 12.5 Mg Tablet, 25 MG PO BID, TAB 04/26/14 Amlodipine Besylate* (Amlodipine Besylate*) 5 Mg Tablet, 5 MG PO DAILY, TAB 04/26/14 Discontinued Scripts Insulin Glargine* (Lantus*) 100 Unit/Ml Soln, 30 UNIT SC DAILY@08 for 30 Days Prov:AGA BARNETT 10/24/16 Allergies Allergies: Coded Allergies: sumatriptan (Unverified Allergy, Unknown, 05/29/17) sumatriptan succinate (Unverified Allergy, Unknown, 05/29/17) venlafaxine HCl (Unverified Allergy, Unknown, 05/29/17) PMhx/Soc History of Surgery: Yes (OPEN HEART SX) Anesthesia Reaction: No Hx Neurological Disorder: Yes (STROKE 8YRS AGO, LEFT SIDE WEAKNESS) Hx Respiratory Disorders: No (SOB) Hx Cardiac Disorders: Yes (HEART FAILURE, ON MEDS VIA INFUSION PUMP) Hx Psychiatric Problems: Yes (DEPRESSION DUE TO HEART FAILURE) Hx Miscellaneous Medical Probl: No Hx Alcohol Use: No Hx Substance Use: No Hx Tobacco Use: Yes (2 CIGATETTE/D, LAST TIME WAS 2 YRS AGO) Smoking Status: Current every day smoker Physical Exam Vitals Vital Signs Date Time Temp Pulse Resp B/P Pulse Ox O2 Delivery O2 Flow Rate FiO2 05/29/17 10:41 68 18 126/66 99 Room Air 05/29/17 09:33 Nasal Cannula 2.0 05/29/17 09:32 Nasal Cannula 2 05/29/17 09:12 98.0 80 30 137/74 99 Physical Exam INITIAL VITAL SIGNS: Reviewed by me GENERAL: The patient is well developed and appropriate for usual state of health in no apparent distress with periodic cough HEENT: Pupils equal, round, and reactive to light. EOMI. There is no scleral icterus. NECK: C-spine is soft and supple, there is no meningismus. There is no cervical lymphadenopathy. LUNGS: Clear to auscultation bilaterally. There are no rales, wheezes or rhonchi. HEART: Regular rate and rhythm, no murmurs, clicks, rubs or gallops. ABDOMEN: Soft, non-tender, non-distended. There are bowel sounds in all four quadrants. No rebound or guarding. EXTREMITIES: Right upper extremity PICC line, there is no peripheral cyanosis or edema. No focal swelling or erythema. NEUROLOGICAL: The patient moves all four extremities with 5/5 strength. Cranial nerves II - XII are intact. Normal gait. Alert and oriented SKIN: There is no apparent rash or petechiae. HEME/LYMPHATIC: There is no evidence of excessive bruising or lymphedema. PSYCHIATRIC: The patient does not appear anxious or depressed. Result Diagram: 05/29/1792405/29/17924 Results 24 hrs Laboratory Tests Test 05/29/17 09:25 White Blood Count 9.710^3/ul Red Blood Count 4.3710^6/ul Hemoglobin 12.8g/dl Hematocrit 38.3% Mean Corpuscular Volume 87.6fl Mean Corpuscular Hemoglobin 29.3pg Mean Corpuscular Hemoglobin Concent 33.4g/dl Red Cell Distribution Width 15.1% Platelet Count 94309^3/UL Mean Platelet Volume 10.4fl Neutrophils % 75.2% Lymphocytes % 12.9% Monocytes % 8.6% Eosinophils % 2.4% Basophils % 0.6% Nucleated Red Blood Cells % 0.0/100WBC Neutrophils # 7.310^3/ul Lymphocytes # 1.310^3/ul Monocytes # 0.810^3/ul Eosinophils # 0.210^3/ul Basophils # 0.110^3/ul Nucleated Red Blood Cells # 0.010^3/ul Sodium Level 137mmol/L Potassium Level 4.6mmol/L Chloride Level 102mmol/L Carbon Dioxide Level 23mmol/L Anion Gap 17 Blood Urea Nitrogen 15mg/dl Creatinine 0.74mg/dl Glucose Level 288mg/dl Calcium Level 9.3mg/dl Troponin I 0.018ng/ml B-Type Natriuretic Peptide 947PG/ML [facility] EKG: Rate/Rhythm: [Normal Sinus Rhythm] QRS, ST, T-waves: [No changes consistent w/ acute ischemia] Impression: [No evidence of ischemia or arrhythmia with left axis deviation ] Chest X-ray 1V Interpreted by me: 1. Cardiomegaly and atherosclerotic disease. No evidence of acute cardiopulmonary disease. 2. Right-sided PICC line in satisfactory position. 3. No change since prior exam. This 57-year-old male presents to the emergency room for evaluation of a dry cough. When I evaluated this patient he was in no respiratory distress, his pulse oxygen levels 100% on room air. He did have a periodic dry cough and I did know that this patient was receiving milrinone through a right-sided PICC line. He does have an extensive history of congestive heart failure with a limited EF and the patient is on the transplant wait list. I did obtain a cardiac workup on this patient. His EKG does not show any signs of acute ischemia and first troponin is negative. Given his risk factors I did state that I would like this patient to be admitted to the hospital for serial troponins and monitoring overnight. This patient adamantly refused and states that he wants to go home. I discussed the risks of leaving including the risk of and stated that this patient should stay overnight at least for observation. In a serial troponins and a repeat chest x-ray. The patient states that he does not want to stay in the hospital and just wants medicine. I advised him that we will have to leave AGAINST MEDICAL ADVICE. I will be happy to give him a prescription for antitussive medication however given his risk factors I did recommend he stay. This patient will leave AGAINST MEDICAL ADVICE at this time. He does have capacity to make medical decisions. Against Medical Advice Note The patient verbalized understanding of risks of signing out against medical advice including and disability. The patient explained to me the reason for wanting to sign out against medical advice, he does not want to stay in the hospital. The patient is alert and oriented x 3 with decisional capacity and competence to sign out. They were welcomed to come back to ER and will be going home with discharge paperwork. Departure Diagnosis: Primary Impression: Cough Additional Impressions: Normocytic anemia Heart failure Condition: NEDA Manuel DO May 29, 2017 11:05
[2017-05-29] MEDS ORDERED: UDROBDM PO (11:06)
== END 2017-05-29 11:49 | disposition left against medical advice (07) ==
LOC: E/R 08:55
DX: R05 Cough (principal); D64.9 Anemia, unspecified; I50.9 Heart failure, unspecified; F17.210 Nicotine dependence, cigarettes, uncomplicated; R40.2142 Coma scale, eyes open, spontaneous, at arrival to emergency department; R40.2252 Coma scale, best verbal response, oriented, at arrival to emergency department; R40.2362 Coma scale, best motor response, obeys commands, at arrival to emergency department; I10 Essential (primary) hypertension; Z79.4 Long term (current) use of insulin; Z79.82 Long term (current) use of aspirin
CPT/HCPCS: 36415; 71010; 80048; 83880; 84484; 85025; 93005; Z7502; Z7610

== ENCOUNTER 2017-12-26 19:13 | Inpatient (IN) | END 2018-01-08 18:47 | disposition hospice, home (50) | DRG 302 ==

== ENCOUNTER 2018-02-21 09:21 | Inpatient (IN) | END 2018-02-23 14:15 | disposition left against medical advice (07) | DRG 314 ==

== ENCOUNTER 2018-03-13 13:50 | Inpatient (IN) | END 2018-03-17 18:52 | disposition home health service (06) | DRG 313 ==